=== PATIENT | female | born 1960 | race Caucasian/White ===

== ENCOUNTER → 2017-09-26 10:47 | Outpatient (CLI) | payer OTHER, SELFPAY ==
--- NOTE | 2017-09-26 10:54 | PCM.CR.HP2 ---
CR - History & Physical - General Arrival date:: 09/26/17 Arrival time:: 10:54 Date of Admission: 09/26/17 Referring Physician: DR. Isac Davila Primary Diagnosis: PCI-BEAU - History of Present Cardiac Event Onset Date: Enter Onset Date of cardiac illnesses in Comment field below [place]:: Yes - 09/10/17 NSTEMI PTCA:: Yes - 09/10/2017 Type of Symptoms:: chest pain, denied radiating pain or shortness of breath, and being diaphoretic. Previous to her visit with Dr. Davila, she had been experiencing intermittent episodes of resting and nocturnal chest pain/discomfort. She states this eventually would go away on its own. Interventions with present event:: Left heart cath with a coronary stent placement. - Medications Home Medications: Ambulatory Orders Medication Instructions Recorded Albuterol IH (ProAir) [Proair Hfa] 1 puff INHALATION Q6H PRN PRN 12/16/14 Melatonin/Pyridoxine [Melatonin 3 1 tab PO QHS 12/16/14 mg Tablet] Metformin HCl [Glucophage] 1,000 mg PO BID 12/16/14 Pravastatin [Pravachol] 40 mg PO QHS 12/16/14 Trazodone HCl 150 mg PO QHS 12/16/14 Aspirin E.C. [Ecotrin] 81 mg PO DAILY@0800 #30 tablet 10/20/16 Clopidogrel Bisulfate [Plavix] 75 mg PO DAILY #30 tablet 10/20/16 Nitroglycerin [Nitrostat] 0.4 mg SUBLINGUAL Q5M PRN #25 10/20/16 tablet Metoprolol Tartrate [Lopressor 37.5 mg PO BID 09/09/17 (beta rayna)] Pantoprazole Sodium [Protonix] 40 mg PO DAILY 09/09/17 - Allergies Allergies/Adverse Reactions: Allergies diltiazem Allergy (Verified 09/09/17 09:39) Unknown levofloxacin [From Levaquin] Adverse Reaction (Verified 04/26/16 19:04) Upset Stomach meperidine HCl [From Demerol] Adverse Reaction (Verified 10/17/16 14:56) Vomiting rosuvastatin calcium [From Crestor] Adverse Reaction (Verified 04/26/16 19:04) Pain in joints Tetracyclines Adverse Reaction (Verified 10/17/16 14:56) Upset Stomach tramadol Adverse Reaction (Verified 10/19/16 16:56) Diarrhea - Sleep Disorder Evaluation Hx of Sleep Apnea: Yes Do you snore loudly (louder than talking or can be heard through closed doors)?: Yes - Insomnia and KALI, has been tested and use CPAP at home. Do you often feel tired/ fatigued/ sleepy during daytime?: No Has anyone observed you stop breathing during sleep?: No History of Hypertension (for STOP score): Yes STOP Results: Positive Advanced Directives - Advanced Directives Power of Surgical Scrub Tech: No Living Will: No Advance Directives Information Provided: No - denied. Advance Directives on File: No DNR Order?:: No Past Medical History - Problems and Co-Morbidities Problems & Co-Morbidities: Smoking - 1/2 ppd current smoker, smoked for about 25 years., Dyslipidemia, Diabetes - Type II, Obesity - BMI 31.0-31.9%, Hypertension - Past Medical Illness Past Medical Illness: Diabetes - Type II Other Medical Illnesses:: GERD, Neuropathic pain, depression, insomnia, KALI. - Past Cardiac Illness Past Cardiac Illness: Heart Murmur - cardiac heart murmur, Ejection Fraction - 60% per ECHO 10/02/2016, Coronary Artery Disease Other Cardiac Illnesses:: syncope and near syncope episodes - Cardiology Procedures/Interventions Cardiology Procedures/Interventions: Angioplasty, PCI w/Stenting - previous status post coronary stenting and angioplasty, Other Procedures - abnormal stress test and electrocardiogram. 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 Review of Systems - Review of Systems Hints: Right click = Denies (Slash). Left click = Reports ([place]) Review of Present Symptoms: Reports: Shortness of Breath with Exertion - sometimes just comes and goes not really related to level of activity., Angina - resting and nocturnal, Dizziness/Lightheadedness - yes., Fatigue, Appetite - Normal, Appetite - Special Diet - watching sodium and fat intake., Sleep - Normal. Denies: Shortness of Breath at Rest Risk Factor Assessment - Chief Complaint Chief Complaint: Patient presentst o cardiac rehab today following recent PCI-BEAU procedure here at [facility]. Patient is currently under the care of Dr. Isac Davila and Dr. Olivier Anand. 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 - Diabetes Diabetic History: Type II, Medication Dependent Nutrition Referral for Diabetes: No - Obesity Height: 64 ft Weight:: 86.183 kg - BMI incorrect below BMI 32.61 Weight in Pounds: 190.0 lbs Body Mass Index (BMI): 0.2 Nutritional Referral for Obesity: No - Previously seen Diabatic Education - Physical Inactivity Physical Inactivity: None - Risk Stratification Risk Guidelines: Lowest Risk: Risk Factor for Dyslipidemia, Risk Factor for Diabetes - last HbA1C below 6.4, Highest Risk: Risk Factor for Smoking - For Smoking Smoking Risk Guidelines: Smoking Low Risk: None or quit greater than 6 months ago. Smoking Moderate Risk: Smoker or quit 6 months or less ago. Smoking High Risk: Smoker - For Dyslipidemia Dyslipidemia Risk Guidelines: Low Risk: Moderate Risk: High Risk: 15-25% fat 25.1-29% fat >/= 30% fat. <7% sat fat 7-9% sat fat >9% sat fat. <150 mg chol 150-299 mg chol >/= 300 mg chol. LDL <100 LDL 100-129 LDL >/= 130. Chol/HDL ratio <5.0 Chol/HDL ratio 5.0-6.0 Chol/HDL ratio >6.0. Triglycerides <100 Triglycerides 100-149 Triglycerides >/= 150 - For Diabetes Mellitus Diabetes Risk Guidelines: Diabetes Low Risk: HgA1c <6.5% and/or FBG <120. Diabetes Moderate Risk: HgA1c 6.6-7.9% and/or FBG 120-180. Diabetes High Risk: HgA1c >/= 8% and/or FBG >180 - For Obesity/Overweight Obesity/Overweight Risk Guidelines: Obesity Low Risk: BMI <25.0. Obesity Moderate Risk: BMI 25-29.9. Obesity High Risk: BMI >/= 30.0 - For Hypertension Hypertension Risk Guidelines: Hypertension Low Risk: Systolic <120 and Diastolic <80. Hypertension Moderate Risk: Systolic 120-139 and Diastolic 80-89. Hypertension High Risk: Systolic >/= 140 and Diastolic >/= 90 - For Sedentary Lifestyle Sedentary Lifestyle Risk Guidelines: Sedentary Lifestyle Low Risk: >/= 1,500 kcal/week. Sedentary Lifestyle Moderate Risk: 700-1,499 kcal/week. Sedentary Lifestyle High Risk: < 700 kcal/week - For Depression Depression Risk Guidelines: Depression Low Risk: Not clinically depressed. Depression Moderate Risk: Mildly depressed. Depression High Risk: Clinically depressed Social History - Smoking History Smoking Status: Current every day smoker Years Smokin Packs Smoked per Day: 0.5 Hx Tobacco Use: Yes - Alcohol Use Alcohol Usage: No - Substance Abuse Hx Substance Use: No - Occupation Occupation (List type of work in comments):: Retired - Hobbies, Recreation, Social Activities Hobbies: Reading Recreational Activities: I am able to engage in most, but not all activities Marital Status - Status Marital Status: - Current Living Arrangements Living Environment:: Spouse - Children How many children do you have?: 2 Do any of your children live nearby?: Yes - [place] area - Safety Do you feel safe in your surroundings?: Yes - Assistance Do you need any assistance at home?: none
--- NOTE | 2017-09-26 11:04 | CR.HP_ITS ---
CR - History & Physical - General Arrival date:: 09/26/17 Arrival time:: 10:54 Date of Admission: 09/26/17 Referring Physician: DR. Isac Davila Primary Diagnosis: PCI-BEAU - History of Present Cardiac Event Onset Date: Enter Onset Date of cardiac illnesses in Comment field below [place]:: Yes - 09/10/17 NSTEMI PTCA:: Yes - 09/10/2017 Type of Symptoms:: chest pain, denied radiating pain or shortness of breath, and being diaphoretic. Previous to her visit with Dr. Davila, she had been experiencing intermittent episodes of resting and nocturnal chest pain/ discomfort. She states this eventually would go away on its own. Interventions with present event:: Left heart cath with a coronary stent placement. - Medications Home Medications: Ambulatory Orders Medication Instructions Recorded Albuterol IH (ProAir) [Proair Hfa] 1 puff INHALATION Q6H PRN PRN 12/16/14 Melatonin/Pyridoxine [Melatonin 3 1 tab PO QHS 12/16/14 mg Tablet] Metformin HCl [Glucophage] 1,000 mg PO BID 12/16/14 Pravastatin [Pravachol] 40 mg PO QHS 12/16/14 Trazodone HCl 150 mg PO QHS 12/16/14 Aspirin E.C. [Ecotrin] 81 mg PO DAILY@0800 #30 tablet 10/20/16 Clopidogrel Bisulfate [Plavix] 75 mg PO DAILY #30 tablet 10/20/16 Nitroglycerin [Nitrostat] 0.4 mg SUBLINGUAL Q5M PRN #25 10/20/16 tablet Metoprolol Tartrate [Lopressor 37.5 mg PO BID 09/09/17 (beta rayna)] Pantoprazole Sodium [Protonix] 40 mg PO DAILY 09/09/17 - Allergies Allergies/Adverse Reactions: Allergies diltiazem Allergy (Verified 09/09/17 09:39) Unknown levofloxacin [From Levaquin] Adverse Reaction (Verified 04/26/16 19:04) Upset Stomach meperidine HCl [From Demerol] Adverse Reaction (Verified 10/17/16 14:56) Vomiting rosuvastatin calcium [From Crestor] Adverse Reaction (Verified 04/26/16 19:04) Pain in joints Tetracyclines Adverse Reaction (Verified 10/17/16 14:56) Upset Stomach tramadol Adverse Reaction (Verified 10/19/16 16:56) Diarrhea - Sleep Disorder Evaluation Hx of Sleep Apnea: Yes Do you snore loudly (louder than talking or can be heard through closed doors)? : Yes - Insomnia and KALI, has been tested and use CPAP at home. Do you often feel tired/ fatigued/ sleepy during daytime?: No Has anyone observed you stop breathing during sleep?: No History of Hypertension (for STOP score): Yes STOP Results: Positive Advanced Directives - Advanced Directives Power of Hearing Therapist: No Living Will: No Advance Directives Information Provided: No - denied. Advance Directives on File: No DNR Order?:: No Past Medical History - Problems and Co-Morbidities Problems & Co-Morbidities: Smoking - 1/2 ppd current smoker, smoked for about 25 years., Dyslipidemia, Diabetes - Type II, Obesity - BMI 31.0-31.9%, Hypertension - Past Medical Illness Past Medical Illness: Diabetes - Type II Other Medical Illnesses:: GERD, Neuropathic pain, depression, insomnia, KALI. - Past Cardiac Illness Past Cardiac Illness: Heart Murmur - cardiac heart murmur, Ejection Fraction - 60% per ECHO 10/02/2016, Coronary Artery Disease Other Cardiac Illnesses:: syncope and near syncope episodes - Cardiology Procedures/Interventions Cardiology Procedures/Interventions: Angioplasty, PCI w/Stenting - previous status post coronary stenting and angioplasty, Other Procedures - abnormal stress test and electrocardiogram. 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 Review of Systems - Review of Systems Hints: Right click = Denies (Slash). Left click = Reports ([place]) Review of Present Symptoms: Reports: Shortness of Breath with Exertion - sometimes just comes and goes not really related to level of activity., Angina - resting and nocturnal, Dizziness/Lightheadedness - yes., Fatigue, Appetite - Normal, Appetite - Special Diet - watching sodium and fat intake., Sleep - Normal. Denies: Shortness of Breath at Rest Risk Factor Assessment - Chief Complaint Chief Complaint: Patient presentst o cardiac rehab today following recent PCI- BEAU procedure here at [facility]. Patient is currently under the care of Dr. Isac Davila and Dr. Olivier Anand. 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 - Diabetes Diabetic History: Type II, Medication Dependent Nutrition Referral for Diabetes: No - Obesity Height: 64 ft Weight:: 86.183 kg - BMI incorrect below BMI 32.61 Weight in Pounds: 190.0 lbs Body Mass Index (BMI): 0.2 Nutritional Referral for Obesity: No - Previously seen Diabatic Education - Physical Inactivity Physical Inactivity: None - Risk Stratification Risk Guidelines: Lowest Risk: Risk Factor for Dyslipidemia, Risk Factor for Diabetes - last HbA1C below 6.4, Highest Risk: Risk Factor for Smoking - For Smoking Smoking Risk Guidelines: Smoking Low Risk: None or quit greater than 6 months ago. Smoking Moderate Risk: Smoker or quit 6 months or less ago. Smoking High Risk: Smoker - For Dyslipidemia Dyslipidemia Risk Guidelines: Low Risk: Moderate Risk: High Risk: 15-25% fat 25.1-29% fat >/= 30% fat. <7% sat fat 7-9% sat fat >9% sat fat. <150 mg chol 150-299 mg chol >/= 300 mg chol. LDL <100 LDL 100-129 LDL >/= 130. Chol/HDL ratio <5.0 Chol/HDL ratio 5.0-6.0 Chol/HDL ratio >6.0. Triglycerides <100 Triglycerides 100-149 Triglycerides >/= 150 - For Diabetes Mellitus Diabetes Risk Guidelines: Diabetes Low Risk: HgA1c <6.5% and/or FBG <120. Diabetes Moderate Risk: HgA1c 6.6-7.9% and/or FBG 120-180. Diabetes High Risk: HgA1c >/= 8% and/or FBG >180 - For Obesity/Overweight Obesity/Overweight Risk Guidelines: Obesity Low Risk: BMI <25.0. Obesity Moderate Risk: BMI 25-29.9. Obesity High Risk: BMI >/= 30.0 - For Hypertension Hypertension Risk Guidelines: Hypertension Low Risk: Systolic <120 and Diastolic <80. Hypertension Moderate Risk: Systolic 120-139 and Diastolic 80-89. Hypertension High Risk: Systolic >/= 140 and Diastolic >/= 90 - For Sedentary Lifestyle Sedentary Lifestyle Risk Guidelines: Sedentary Lifestyle Low Risk: >/= 1 ,500 kcal/week. Sedentary Lifestyle Moderate Risk: 700-1,499 kcal/week. Sedentary Lifestyle High Risk: < 700 kcal/week - For Depression Depression Risk Guidelines: Depression Low Risk: Not clinically depressed. Depression Moderate Risk: Mildly depressed. Depression High Risk: Clinically depressed Social History - Smoking History Smoking Status: Current every day smoker Years Smokin Packs Smoked per Day: 0.5 Hx Tobacco Use: Yes - Alcohol Use Alcohol Usage: No - Substance Abuse Hx Substance Use: No - Occupation Occupation (List type of work in comments):: Retired - Hobbies, Recreation, Social Activities Hobbies: Reading Recreational Activities: I am able to engage in most, but not all activities Marital Status - Status Marital Status: - Current Living Arrangements Living Environment:: Spouse - Children How many children do you have?: 2 Do any of your children live nearby?: Yes - [place] area - Safety Do you feel safe in your surroundings?: Yes - Assistance Do you need any assistance at home?: none
[2017-09-26 11:17] VITALS: BP 140/78; PULSE 67
--- NOTE | 2017-09-26 11:18 | CR.ITP_ITS ---
Exercise - Initial Assessment - Visit Date of Eval: 09/26/17 - INITIAL EVAL - Stages of Change Stages of Change:: Action - Exercise Prescription Mode:: Treadmill, Rower, Airdyne, NuStep Target Heart Rate:: 113-122 - Hypertension Do any of the following apply?: Medication - Intervention Home Exercise/Activity Goal:: Moderate Exercise 30 min/day x 5 days/wk - Education Goals:: Warm-up, RPE AMANDA Scale, S/S, Safe Exercise, Self-Monitoring - Exercise Program Goals Exercise Program Goals: Aerobic Activity >30 min Exercise - 30-day Assessment - Stages of Change Stages of Change:: Action - Exercise Prescription Mode:: Treadmill, Rower, Airdyne, NuStep Frequency (x/week): 3 Duration:: 35 METs - Progression: 0.5-1 MET as tolerated: 3.7 Target Heart Rate:: 113-122 - Intervention Home Exercise/Activity Goal:: Moderate Exercise 30 min/day x 5 days/wk - Education Goals:: Warm-up, RPE AMANDA Scale, S/S, Safe Exercise, Self-Monitoring - Exercise Program Goals Exercise Program Goals: Aerobic Activity >30 min Exercise - 60-Day Assessment - Stages of Change Stages of Change:: Action - Exercise Prescription Mode:: Treadmill, Biodyne, Rower, Airdyne, NuStep, Arm Ergometer Frequency (x/week): 3 Duration:: 35 METs: 5 Target Heart Rate:: 113-122 - Hypertension Medication Changes:: No - Intervention Home Exercise/Activity Goal:: Moderate Exercise 30 min/day x 5 days/wk - Education Goals:: Warm-up, RPE AMANDA Scale, S/S, Safe Exercise, Self-Monitoring - Exercise Program Goals Exercise Program Goals: Aerobic Activity >30 min Exercise - 90-Day Assessment - Stages of Change Stages of Change:: Action - Exercise Prescription Mode:: Treadmill, Biodyne, Rower, Airdyne, NuStep, Arm Ergometer Frequency (x/week): 3 Duration:: 35 METs: 5 Target Heart Rate:: 113-122 - Hypertension Medication Changes:: No - Intervention Home Exercise/Activity Goal:: Moderate Exercise 30 min/day x 5 days/wk - Education Goals:: Warm-up, RPE AMANDA Scale, S/S, Safe Exercise, Self-Monitoring - Exercise Program Goals Exercise Program Goals: Aerobic Activity >30 min Exercise - Final/Discharge - Hypertension Do any of the following apply?: Medication Nutrition - Initial Assessment - Program Goals Nutrition Program Goals: LDL <70. Total Cholesterol <200. HDL >45. Triglycerides <150. HgbA1C <7%. BMI <25 - Visit Date of Assessment:: 09/26/17 - INITIAL EVAL - Stages of Change Stages of Change:: Action - Diabetes Diabetes:: Yes Hgb A1C: 6.4 Non-Insulin Dependent?: Yes - Metformin 1000mg daily Do you monitor your blood sugar at home?: Yes - Weight Management Height: 5 ft 4 in Weight:: 68.126 kg Weight Goal (kg):: 65.771 kg - Patient could benefit from formal counseling with dietitian Body Fat %:: 30 Total Score:: 12 - Intervention Referral to dietitian:: Yes Referral to Diabetic Clinic:: Yes Will attend diet classes:: Yes - Education Gave educational materials for:: Signs & symptoms of hypoglycemia, Signs & symptoms of hyperglycemia, Relate diabetes to coronary artery disease, Healthy eating Nutrition - 30-Day Assessment - Program Goals Nutrition Program Goals: LDL <70. Total Cholesterol <200. HDL >45. Triglycerides <150. HgbA1C <7%. BMI <25 - Stages of Change Stages of Change:: Action - Lipids Has the patient seen the dietitian?: No - Diabetes Diabetes:: Yes Hgb A1C: 6.4 Insulin: No Non-Insulin Dependent?: Yes - Metformin 1000mg daily - Weight Management Weight Goal (kg):: 65.771 kg - Patient could benefit from formal counseling with dietitian - Intervention Referral to dietitian:: Yes Referral to Diabetic Clinic:: Yes Will attend diet classes:: Yes - Education Attended class for:: Signs & symptoms of hypoglycemia, Signs & symptoms of hyperglycemia, Relate diabetes to coronary artery disease, Healthy eating Nutrition - 60-Day Assessment - Program Goals Nutrition Program Goals: LDL <70. Total Cholesterol <200. HDL >45. Triglycerides <150. HgbA1C <7%. BMI <25 - Stages of Change Stages of Change:: Action - Lipids Has the patient seen the dietitian?: No Lipid Medication: Pravachol - Diabetes Diabetes:: Yes Hgb A1C: 6.4 Insulin: No Non-Insulin Dependent?: Yes - Metformin 1000mg daily Random Blood Glucose:: 72 - Weight Management Weight Goal (kg):: 65.771 kg - Patient could benefit from formal counseling with dietitian - Intervention Referral to dietitian:: Yes Referral to Diabetic Clinic:: Yes Will attend diet classes:: Yes - Education Attended class for:: Signs & symptoms of hypoglycemia, Signs & symptoms of hyperglycemia, Relate diabetes to coronary artery disease, Healthy eating Nutrition - 90-Day Assessment - Program Goals Nutrition Program Goals: LDL <70. Total Cholesterol <200. HDL >45. Triglycerides <150. HgbA1C <7%. BMI <25 - Stages of Change Stages of Change:: Action - Lipids Has the patient seen the dietitian?: No Lipid Medication: Pravachol - Diabetes Diabetes:: Yes Hgb A1C: 6.4 Insulin: No Non-Insulin Dependent?: Yes - Metformin 1000mg daily Random Blood Glucose:: 72 - Weight Management Weight Goal (kg):: 65.771 kg - Patient could benefit from formal counseling with dietitian - Intervention Referral to dietitian:: Yes Referral to Diabetic Clinic:: Yes Will attend diet classes:: Yes - Education Attended class for:: Signs & symptoms of hypoglycemia, Signs & symptoms of hyperglycemia, Relate diabetes to coronary artery disease, Healthy eating Nutrition - Final Assessment - Program Goals Nutrition Program Goals: LDL <70. Total Cholesterol <200. HDL >45. Triglycerides <150. HgbA1C <7%. BMI <25 - Diabetes Diabetes:: Yes Hgb A1C: 6.4 Insulin: No Non-Insulin Dependent?: Yes - Metformin 1000mg daily - Weight Management Weight Goal (kg):: 65.771 kg - Patient could benefit from formal counseling with dietitian Body Fat %:: 30 Total Score:: 12 - Intervention Referral to dietitian:: Yes Referral to Diabetic Clinic:: Yes Will attend diet classes:: Yes Tobacco - Initial Assessment - Program Goals Tobacco Program Goals: Complete smoking cessation. Attend education classes. Improve Knowledge Test score - Stage of Change Stages of Change:: Action - Learning Barriers Learning Barriers: Vision, Ready to Learn Total Score:: 0 - Family Support Do you have family support?: Yes - Tobacco Use Tobacco Use: Cigarettes - down to 2-3 cigarettes daily; plans to quit this week and not purchase more. How many cigarettes do you smoke per day?: 10 Years Smokin Do you use smokeless tobacco?: No - Intervention Smoking Cessation Referral:: Yes Individual Education/Counseling:: No Education Schedule Given:: Yes - Education Gave educational material for:: Tobacco triggers, Coronary artery disease, Risk factors, Sexuality, Medical compliance, Cardiac A&P, Angina signs & symptoms Tobacco - 30-Day Assessment - Program Goals Tobacco Program Goals: Complete smoking cessation. Attend education classes. Improve Knowledge Test score - Stage of Change Stages of Change:: Action - Learning Barriers Learning Barriers: Participates in education - Family Support Do you have family support?: Yes - Tobacco Use Do you use smokeless tobacco?: No - Intervention Smoking Cessation Referral:: Yes Individual Education/Counseling:: No Education Schedule Given:: Yes - Education Attended class for:: Tobacco triggers, Coronary artery disease, Risk factors, Sexuality, Medical compliance, Cardiac A&P, Angina signs & symptoms Tobacco - 60-Day Assessment - Program Goals Tobacco Program Goals: Complete smoking cessation. Attend education classes. Improve Knowledge Test score - Stage of Change Stages of Change:: Action - Learning Barriers Learning Barriers: Participates in education - Family Support Do you have family support?: Yes - Tobacco Use Do you use smokeless tobacco?: No - Intervention Smoking Cessation Referral:: Yes Individual Education/Counseling:: No Education Schedule Given:: Yes - Education Attended class for:: Tobacco triggers, Coronary artery disease, Risk factors, Sexuality, Medical compliance, Cardiac A&P, Angina signs & symptoms Tobacco - 90-Day Assessment - Program Goals Tobacco Program Goals: Complete smoking cessation. Attend education classes. Improve Knowledge Test score - Stage of Change Stages of Change:: Action - Learning Barriers Learning Barriers: Participates in education - Family Support Do you have family support?: Yes - Tobacco Use Do you use smokeless tobacco?: No - Intervention Smoking Cessation Referral:: Yes Individual Education/Counseling:: No Education Schedule Given:: Yes - Education Attended class for:: Tobacco triggers, Coronary artery disease, Risk factors, Sexuality, Medical compliance, Cardiac A&P, Angina signs & symptoms Tobacco - Final Assessment - Program Goals Tobacco Program Goals: Complete smoking cessation. Attend education classes. Improve Knowledge Test score - Learning Barriers Cardiac Knowledge Test Score:: 6 - Family Support Do you have family support?: Yes - Tobacco Use Do you use smokeless tobacco?: No - Intervention Smoking Cessation Referral:: Yes Individual Education/Counseling:: No Education Schedule Given:: Yes Psychosocial - Initial Assess - Target Goals Target Goals: Assess presence or absence of depression. Using a valid screening tool, maximizes coping skills. Positive support system - Stages of Change Stages of Change:: Action - Psychosocial Test Tool Used:: HANDS Depression Questionnaire Tests Completed: SF - 36 survey completed, Mood Scale Test - 7 Total Mood Screening Score:: 0 - Mild depression per survey score. Self-Efficacy Score:: 0 - Patient very discouraged. - Intervention PS - Interventions: Yes Attend Stress Management Classes, Yes Uses Stress Management Skills, No Referral to Mental Health, No Referral to [facility] Case Management, No Referral to Physician - - Education Gave educational materials for:: Coping techniques, Signs & symptoms of depression, Stress management - Patient/Program Goal Preventative Medication(s):: Aspirin, STEVE inhibitor, Clopidogrel, Beta rayna, Statin/lipid - Assistive Devices Assistive Devices:: None Fall Risk Assessed:: Yes Psychosocial - 30-Day Assess - Target Goals Target Goals: Assess presence or absence of depression. Using a valid screening tool, maximizes coping skills. Positive support system - Stages of Change Stages of Change:: Action - Psychosocial Test Tool Used:: HANDS Depression Questionnaire Self-reported stress:: None - Patient/Program Goal Preventative Medication(s):: Aspirin, STEVE inhibitor, Clopidogrel, Beta rayna, Statin/lipid - Assistive Devices Assistive Devices:: None Fall Risk Assessed:: Yes Psychosocial - 60-Day Assess - Target Goals Target Goals: Assess presence or absence of depression. Using a valid screening tool, maximizes coping skills. Positive support system - Stages of Change Stages of Change:: Contemplate, Action - Psychosocial Test Tool Used:: HANDS Depression Questionnaire - Patient/Program Goal Preventative Medication(s):: Aspirin, STEVE inhibitor, Clopidogrel, Beta rayna, Statin/lipid - Assistive Devices Assistive Devices:: None Fall Risk Assessed:: Yes Psychosocial - 90-Day Assess - Target Goals Target Goals: Assess presence or absence of depression. Using a valid screening tool, maximizes coping skills. Positive support system - Stages of Change Stages of Change:: Contemplate, Action - Psychosocial Test Tool Used:: HANDS Depression Questionnaire - Patient/Program Goal Preventative Medication(s):: Aspirin, STEVE inhibitor, Clopidogrel, Beta rayna, Statin/lipid - Assistive Devices Assistive Devices:: None Fall Risk Assessed:: Yes Psychosocial - Final Assessmen - Target Goals Target Goals: Assess presence or absence of depression. Using a valid screening tool, maximizes coping skills. Positive support system - Psychosocial Test Tool Used:: HANDS Depression Questionnaire Tests Completed: SF - 36 survey completed, Mood Scale Test - 7 - Patient/Program Goal Preventative Medication(s):: Aspirin, STEVE inhibitor, Clopidogrel, Beta rayna, Statin/lipid - Assistive Devices Assistive Devices:: None Fall Risk Assessed:: Yes Patient Health Questionnaire Initial Assessment 1. Little interest or pleasure in doing things: Several days 2. Feeling down, depressed, or hopeless: Several days 3. Trouble falling or staying asleep, or sleeping too much: More than half the days 4. Feeling tired or having little energy: More than half the days 5. Poor appetite or overeating: Several days 6. Feeling bad about yourself -- or that you are a failure or have let yourself or your family down: Not at all 7. Trouble concentrating on things, such as reading the newspaper or watching television: Not at all 8. Moving or speaking so slowly that other people could have noticed. Or the opposite - being so fidgety or restless that you have been moving around a lot more than usual: Not at all 9. Thoughts that you would be better off , or of hurting yourself in some way: Not at all How difficult have these problems made it for you to do your work, take care of things at home, or get along with other people?: Somewhat difficult Total Score: 7 Knowledge Test - Check your knowledge Initial The #1 cause of in the [place] each year is:: Heart disease Which of the following is a common treatment for heart disease?: All of the above The arteries that feed the heart are called:: Coronary arteries HDL cholesterol is known as the good cholesterol.: True What disease increases your risk for heart disease?: Diabetes What food product raises blood cholesterol level the most?: Saturated fat The bad cholesterol in the blood is called:: LDL Hypertension is another word for:: High blood pressure A blood pressure reading of 148/88 is considered normal.: False Exercise will only benefit your health when your heart rate reaches a target level.: False Total Score:: 10 Self-Efficacy Initial Assessment We would like to know how confident you are in doing certain activities. Please select your confidence level for:: Select your confidence level for the following using the scale 1-10 where 1 is not at all confident and 10 is totally confident. Your score is the average of all 6 responses. Fatigue: How confident are you that you can keep the fatigue caused by your disease from interfering with the things you want to do? Select Number: 4 Physical Discomfort or Pain: How confident are you that you can keep the physical discomfort or pain of your disease from interfering with the things you want to do? Select Number: 5 Emotional Distress: How confident are you that you can keep the emotional distress caused by your disease from interfering with the things you want to do? Select Number: 8 Other Symptoms or Health Problems: How confident are you that you can keep other symptoms or health problems from interfering with the things you want to do? Select Number: 6 Different Tasks and Activities: How confident are you that you can do the different tasks and activities needed to manage your health condition so as to reduce your need to see a doctor? Select Number: 5 Medication: How confident are you that you can do things other than just taking medication to reduce how much your illness affects your everyday life? Select Number: 5 Total Score:: 5 Nutrition Survey - Nutrition Survey Instructions Scoring Instructions: Scoring is as follows: Yes = 1 points. No = 0 point. Patient score that is >/=12 is considered to be at potential nutritional risk and could benefit from a referral to a registered dietitian. - Nutrition Survey Initial Have you lost >10 lbs over the past 2 months without trying?: No Are you following a special diet at home for diabetes, low fat, or low salt?: No Are you interested in meeting with a dietitian for help understanding your diet? : No Do you eat less than 3 meals a day?: Yes Do you eat fatty meats (metz, sausage, ribs, etc), fried foods, desserts, large amounts of salad dressings, margarine, butter, or cheese most days?: No Do you have food allergies? [Enter types in comment field]: Yes Do you eat in restaurants more than 3 times a week?: No Do you season food with salt, seasoning salt, or garlic salt?: Yes Do you used canned, boxed, frozen meals, or soups, seasoning packets?: Yes Total Score:: 4 Cardiac Rehabilitation Goals - Cardiac Rehab Goals Cardiac Rehabilitation Goals: 1. Maintain the individual as the primary focus of care. 2. To improve the patient's quality of life. 3. Identification of cardiac risk factors and provide cardiac risk factor management. 4. Enhance the psychosocial status of the patient. 5. Reconditioning enough to allow the patient to resume customary activities. 6. Control symptoms of cardiac disease - Scale Scale for measuring improvement of personal goals: Enter appropriate number in Comments. 2 = Unchanged. 3 = Slightly Better. 4 = Moderate Improvement. 5 = Met my Goal Initial Assessment Personal Goals: 30-day Re-assessment: Improve energy level, Improve muscle strength and endurance, Improve diet and eating habits (eat healthier), Control risk factors (learn risk factor modification)
== END ==
PROVIDERS: Family Provider Family Medicine; PCP Family Medicine; Visit Provider Internal Medicine Cardiovascular Disease
DX: I25.2 Old myocardial infarction (principal)

== ENCOUNTER 2017-11-13 13:00 | Outpatient (RCR) | payer OTHER, SELFPAY ==
[2017-10-14 01:39] VITALS: BP 130/64; BP 160/76
[2017-11-13 09:36] VITALS: BP 112/72; BP 150/70
--- NOTE | 2017-11-13 09:37 | CR.ITP_ITS ---
Exercise - Initial Assessment - Stages of Change Stages of Change:: Action - Exercise Prescription Mode:: Treadmill, Rower, Airdyne, NuStep Target Heart Rate:: 113-122 - Hypertension Do any of the following apply?: Medication - Intervention Home Exercise/Activity Goal:: Moderate Exercise 30 min/day x 5 days/wk - Education Goals:: Warm-up, RPE AMANDA Scale, S/S, Safe Exercise, Self-Monitoring - Exercise Program Goals Exercise Program Goals: Aerobic Activity >30 min Exercise - 30-day Assessment - Visit Date of Eval: 10/11/17 - Stages of Change Stages of Change:: Action - Exercise Prescription Mode:: Treadmill, Biodyne, Airdyne, NuStep Frequency (x/week): 3 Duration:: 30 METs - Progression: 0.5-1 MET as tolerated: 3.1 Target Heart Rate:: 116-120 Max HR 100 - Intervention Home Exercise/Activity Goal:: Moderate Exercise 30 min/day x 5 days/wk - Education Goals:: Warm-up, RPE AMANDA Scale, S/S, Safe Exercise, Self-Monitoring - Exercise Program Goals Exercise Program Goals: Aerobic Activity >30 min Exercise - 60-Day Assessment - Visit Date of Eval: 11/13/17 - Started CR 09/30/2017 recent PCI Session #:: 16 - Stages of Change Stages of Change:: Action - Exercise Prescription Mode:: Treadmill, Biodyne, Rower, Airdyne, NuStep, Arm Ergometer Frequency (x/week): 3 Duration:: 35 METs: 6 Target Heart Rate:: 116-120 Max HR 109 - Hypertension Resting Blood Pressure:: 112/72 Peak Exercise Blood Pressure:: 150/70 Medication Changes:: No - Intervention Home Exercise/Activity Goal:: Moderate Exercise 30 min/day x 5 days/wk - Education Goals:: Warm-up, RPE AMANDA Scale, S/S, Safe Exercise, Self-Monitoring - Exercise Program Goals Exercise Program Goals: Aerobic Activity >30 min Exercise - 90-Day Assessment - Exercise Prescription Duration:: METs: Target Heart Rate:: - Intervention Home Exercise/Activity Goal:: Moderate Exercise 30 min/day x 5 days/wk - Education Goals:: Warm-up, RPE AMANDA Scale, S/S, Safe Exercise, Self-Monitoring - Exercise Program Goals Exercise Program Goals: Aerobic Activity >30 min Exercise - Final/Discharge - Hypertension Do any of the following apply?: Medication Nutrition - Initial Assessment - Program Goals Nutrition Program Goals: LDL <70. Total Cholesterol <200. HDL >45. Triglycerides <150. HgbA1C <7%. BMI <25 - Stages of Change Stages of Change:: Action - Diabetes Diabetes:: Yes Hgb A1C: 6.4 Non-Insulin Dependent?: Yes - Metformin 1000mg daily Do you monitor your blood sugar at home?: Yes - Weight Management Weight Goal (kg):: 65.771 kg - Patient could benefit from formal counseling with dietitian Body Fat %:: 30 Total Score:: 12 - Intervention Referral to dietitian:: Yes Referral to Diabetic Clinic:: Yes Will attend diet classes:: Yes - Education Gave educational materials for:: Signs & symptoms of hypoglycemia, Signs & symptoms of hyperglycemia, Relate diabetes to coronary artery disease, Healthy eating Nutrition - 30-Day Assessment - Program Goals Nutrition Program Goals: LDL <70. Total Cholesterol <200. HDL >45. Triglycerides <150. HgbA1C <7%. BMI <25 - Stages of Change Stages of Change:: Action - Lipids Has the patient seen the dietitian?: No - Diabetes Diabetes:: Yes Hgb A1C: 6.4 Non-Insulin Dependent?: Yes - Metformin 1000mg daily - Weight Management Weight Goal (kg):: 65.771 kg - Patient could benefit from formal counseling with dietitian - Intervention Referral to dietitian:: Yes Referral to Diabetic Clinic:: Yes Will attend diet classes:: Yes - Education Attended class for:: Signs & symptoms of hypoglycemia, Signs & symptoms of hyperglycemia, Relate diabetes to coronary artery disease, Healthy eating Nutrition - 60-Day Assessment - Program Goals Nutrition Program Goals: LDL <70. Total Cholesterol <200. HDL >45. Triglycerides <150. HgbA1C <7%. BMI <25 - Visit Date of Eval: 11/13/17 - session # 16 - Stages of Change Stages of Change:: Action - Lipids Has the patient seen the dietitian?: No Lipid Medication: Pravachol - Diabetes Diabetes:: Yes Hgb A1C: 6.4 Non-Insulin Dependent?: Yes - Metformin 1000mg daily Random Blood Glucose:: 155 - Range 94-174 Pre & Post FSBS - Weight Management Weight:: 85.275 kg Weight Goal (kg):: 65.771 kg - Patient could benefit from formal counseling with dietitian - Intervention Referral to dietitian:: Yes Referral to Diabetic Clinic:: Yes Will attend diet classes:: Yes - Education Attended class for:: Signs & symptoms of hypoglycemia, Signs & symptoms of hyperglycemia, Relate diabetes to coronary artery disease, Healthy eating Nutrition - 90-Day Assessment - Program Goals Nutrition Program Goals: LDL <70. Total Cholesterol <200. HDL >45. Triglycerides <150. HgbA1C <7%. BMI <25 - Visit Date of Eval: 02/08/17 - Stages of Change Stages of Change:: Action - Lipids Has the patient seen the dietitian?: No Lipid Medication: Pravachol - Diabetes Diabetes:: Yes Hgb A1C: 6.4 Non-Insulin Dependent?: Yes - Metformin 1000mg daily Random Blood Glucose:: 72 - Weight Management Weight Goal (kg):: 65.771 kg - Patient could benefit from formal counseling with dietitian - Intervention Referral to dietitian:: Yes Referral to Diabetic Clinic:: Yes Will attend diet classes:: Yes - Education Attended class for:: Signs & symptoms of hypoglycemia, Signs & symptoms of hyperglycemia, Relate diabetes to coronary artery disease, Healthy eating Nutrition - Final Assessment - Program Goals Nutrition Program Goals: LDL <70. Total Cholesterol <200. HDL >45. Triglycerides <150. HgbA1C <7%. BMI <25 - Diabetes Diabetes:: Yes Hgb A1C: 6.4 Non-Insulin Dependent?: Yes - Metformin 1000mg daily - Weight Management Weight Goal (kg):: 65.771 kg - Patient could benefit from formal counseling with dietitian Body Fat %:: 30 Total Score:: 12 - Intervention Referral to dietitian:: Yes Referral to Diabetic Clinic:: Yes Will attend diet classes:: Yes Tobacco - Initial Assessment - Program Goals Tobacco Program Goals: Complete smoking cessation. Attend education classes. Improve Knowledge Test score - Stage of Change Stages of Change:: Action - Learning Barriers Learning Barriers: Vision, Ready to Learn Total Score:: 6 - Family Support Do you have family support?: Yes - Tobacco Use Tobacco Use: Cigarettes - down to 2-3 cigarettes daily; plans to quit this week and not purchase more. How many cigarettes do you smoke per day?: 10 Years Smokin Do you use smokeless tobacco?: No - Intervention Smoking Cessation Referral:: Yes Individual Education/Counseling:: No Education Schedule Given:: Yes - Education Gave educational material for:: Tobacco triggers, Coronary artery disease, Risk factors, Sexuality, Medical compliance, Cardiac A&P, Angina signs & symptoms Tobacco - 30-Day Assessment - Program Goals Tobacco Program Goals: Complete smoking cessation. Attend education classes. Improve Knowledge Test score - Stage of Change Stages of Change:: Action - Learning Barriers Learning Barriers: Participates in education - Family Support Do you have family support?: Yes - Tobacco Use How many cigarettes do you smoke per day?: 10 Do you use smokeless tobacco?: No - Intervention Smoking Cessation Referral:: Yes Individual Education/Counseling:: No Education Schedule Given:: Yes - Education Attended class for:: Tobacco triggers, Coronary artery disease, Risk factors, Sexuality, Medical compliance, Cardiac A&P, Angina signs & symptoms Tobacco - 60-Day Assessment - Program Goals Tobacco Program Goals: Complete smoking cessation. Attend education classes. Improve Knowledge Test score - Stage of Change Stages of Change:: Action - Learning Barriers Learning Barriers: Participates in education - Family Support Do you have family support?: Yes - Tobacco Use Tobacco Use: Cigarettes How many cigarettes do you smoke per day?: 10 Do you use smokeless tobacco?: No - Intervention Smoking Cessation Referral:: Yes Individual Education/Counseling:: No Education Schedule Given:: Yes - Education Attended class for:: Tobacco triggers, Coronary artery disease, Risk factors, Sexuality, Medical compliance, Cardiac A&P, Angina signs & symptoms Tobacco - 90-Day Assessment - Program Goals Tobacco Program Goals: Complete smoking cessation. Attend education classes. Improve Knowledge Test score - Stage of Change Stages of Change:: Action - Learning Barriers Learning Barriers: Participates in education - Family Support Do you have family support?: Yes - Tobacco Use Tobacco Use: Cigarettes How many cigarettes do you smoke per day?: 10 Do you use smokeless tobacco?: No - Intervention Smoking Cessation Referral:: Yes Individual Education/Counseling:: No Education Schedule Given:: Yes - Education Attended class for:: Tobacco triggers, Coronary artery disease, Risk factors, Sexuality, Medical compliance, Cardiac A&P, Angina signs & symptoms Tobacco - Final Assessment - Program Goals Tobacco Program Goals: Complete smoking cessation. Attend education classes. Improve Knowledge Test score - Learning Barriers Cardiac Knowledge Test Score:: 0 - Family Support Do you have family support?: Yes - Tobacco Use Tobacco Use: Cigarettes How many cigarettes do you smoke per day?: 10 Do you use smokeless tobacco?: No - Intervention Smoking Cessation Referral:: Yes Individual Education/Counseling:: No Education Schedule Given:: Yes Psychosocial - Initial Assess - Target Goals Target Goals: Assess presence or absence of depression. Using a valid screening tool, maximizes coping skills. Positive support system - Stages of Change Stages of Change:: Action - Psychosocial Test Tool Used:: HANDS Depression Questionnaire Tests Completed: SF - 36 survey completed, Mood Scale Test - 7 Total Mood Screening Score:: 0 - Mild depression per survey score. Self-Efficacy Score:: 0 - Patient very discouraged. - Patient/Program Goal Preventative Medication(s):: Aspirin, STEVE inhibitor, Clopidogrel, Beta rayna, Statin/lipid - Assistive Devices Assistive Devices:: None Fall Risk Assessed:: Yes Psychosocial - 30-Day Assess - Target Goals Target Goals: Assess presence or absence of depression. Using a valid screening tool, maximizes coping skills. Positive support system - Stages of Change Stages of Change:: Action - Psychosocial Test Tool Used:: HANDS Depression Questionnaire Self-reported stress:: None Total Mood Screening Score:: 0 - Mild depression per survey score. Self-Efficacy Score:: 0 - Patient very discouraged. - Intervention PS - Interventions: Yes Attend Stress Management Classes, Yes Uses Stress Management Skills, No Referral to Mental Health, No Referral to [facility] Case Management, No Referral to Physician - Education Attended classes for:: Coping techniques, Signs & symptoms of depression, Stress management, Relaxation techniques - Patient/Program Goal Preventative Medication(s):: Aspirin, STEVE inhibitor, Clopidogrel, Beta rayna, Statin/lipid - Assistive Devices Assistive Devices:: None Fall Risk Assessed:: Yes Psychosocial - 60-Day Assess - Target Goals Target Goals: Assess presence or absence of depression. Using a valid screening tool, maximizes coping skills. Positive support system - Stages of Change Stages of Change:: Contemplate, Action - Psychosocial Test Tool Used:: HANDS Depression Questionnaire Total Mood Screening Score:: 0 - Mild depression per survey score. Self-Efficacy Score:: 0 - Patient very discouraged. - Intervention PS - Interventions: Yes Attend Stress Management Classes, Yes Uses Stress Management Skills, No Referral to Mental Health, No Referral to [facility] Case Management, No Referral to Physician - Education Attended classes for:: Coping techniques, Signs & symptoms of depression, Stress management, Relaxation techniques - Patient/Program Goal Preventative Medication(s):: Aspirin, STEVE inhibitor, Clopidogrel, Beta rayna, Statin/lipid - Assistive Devices Assistive Devices:: None Fall Risk Assessed:: Yes Psychosocial - 90-Day Assess - Target Goals Target Goals: Assess presence or absence of depression. Using a valid screening tool, maximizes coping skills. Positive support system - Stages of Change Stages of Change:: Contemplate, Action - Psychosocial Test Tool Used:: HANDS Depression Questionnaire Total Mood Screening Score:: 0 - Mild depression per survey score. Self-Efficacy Score:: 0 - Patient very discouraged. - Intervention PS - Interventions: Yes Attend Stress Management Classes, Yes Uses Stress Management Skills, No Referral to Mental Health, No Referral to [facility] Case Management, No Referral to Physician - Education Attended classes for:: Coping techniques, Signs & symptoms of depression, Stress management, Relaxation techniques - Patient/Program Goal Preventative Medication(s):: Aspirin, STEVE inhibitor, Clopidogrel, Beta rayna, Statin/lipid - Assistive Devices Assistive Devices:: None Fall Risk Assessed:: Yes Psychosocial - Final Assessmen - Target Goals Target Goals: Assess presence or absence of depression. Using a valid screening tool, maximizes coping skills. Positive support system - Psychosocial Test Tool Used:: HANDS Depression Questionnaire Tests Completed: SF - 36 survey completed, Mood Scale Test - 7 Total Mood Screening Score:: 0 - Mild depression per survey score. Self-Efficacy Score:: 0 - Patient very discouraged. - Patient/Program Goal Preventative Medication(s):: Aspirin, STEVE inhibitor, Clopidogrel, Beta rayna, Statin/lipid - Assistive Devices Assistive Devices:: None Fall Risk Assessed:: Yes Patient Health Questionnaire 60-Day Re-eval Assessment 1. Little interest or pleasure in doing things: Not at all 2. Feeling down, depressed, or hopeless: Not at all 3. Trouble falling or staying asleep, or sleeping too much: Several days 4. Feeling tired or having little energy: Several days 5. Poor appetite or overeating: Not at all 6. Feeling bad about yourself -- or that you are a failure or have let yourself or your family down: Not at all 7. Trouble concentrating on things, such as reading the newspaper or watching television: Not at all 8. Moving or speaking so slowly that other people could have noticed. Or the opposite - being so fidgety or restless that you have been moving around a lot more than usual: Not at all 9. Thoughts that you would be better off , or of hurting yourself in some way: Not at all How difficult have these problems made it for you to do your work, take care of things at home, or get along with other people?: Somewhat difficult Total Score: 2 Self-Efficacy 60-Day Re-eval Assessment We would like to know how confident you are in doing certain activities. Please select your confidence level for:: Select your confidence level for the following using the scale 1-10 where 1 is not at all confident and 10 is totally confident. Your score is the average of all 6 responses. Fatigue: How confident are you that you can keep the fatigue caused by your disease from interfering with the things you want to do? Select Number: 5 Physical Discomfort or Pain: How confident are you that you can keep the physical discomfort or pain of your disease from interfering with the things you want to do? Select Number: 6 Emotional Distress: How confident are you that you can keep the emotional distress caused by your disease from interfering with the things you want to do? Select Number: 9 Other Symptoms or Health Problems: How confident are you that you can keep other symptoms or health problems from interfering with the things you want to do? Select Number: 7 Different Tasks and Activities: How confident are you that you can do the different tasks and activities needed to manage your health condition so as to reduce your need to see a doctor? Select Number: 7 Medication: How confident are you that you can do things other than just taking medication to reduce how much your illness affects your everyday life? Select Number: 8 Total Score:: 7 Cardiac Rehabilitation Goals - Cardiac Rehab Goals Cardiac Rehabilitation Goals: 1. Maintain the individual as the primary focus of care. 2. To improve the patient's quality of life. 3. Identification of cardiac risk factors and provide cardiac risk factor management. 4. Enhance the psychosocial status of the patient. 5. Reconditioning enough to allow the patient to resume customary activities. 6. Control symptoms of cardiac disease - Scale Scale for measuring improvement of personal goals: Enter appropriate number in Comments. 2 = Unchanged. 3 = Slightly Better. 4 = Moderate Improvement. 5 = Met my Goal 60-Day Re-eval Assessment Personal Goals: 30-day Re-assessment: Improve energy level - slight improvement , Improve knowledge of cardiac disease - improvement, Improve muscle strength and endurance - improvement, Improve diet and eating habits (eat healthier) - slight improvement
== END 2017-11-13 23:59 ==
LOC: CR 13:00
PROVIDERS: Family Provider Family Medicine; PCP Family Medicine; Visit Provider Internal Medicine Cardiovascular Disease
DX: Z95.5 Presence of coronary angioplasty implant and graft (principal)
CPT/HCPCS: 93798

== ENCOUNTER 2017-12-11 13:00 | Outpatient (RCR) | payer OTHER, SELFPAY ==
[2017-09-11 11:23] VITALS: BP 131/72
[2017-10-03 13:07] VITALS: BP 130/72; BMI 32.2
[2017-11-14 00:55] VITALS: BP 112/72; BP 150/70
[2017-12-10 12:16] VITALS: BP 128/56; BP 150/74
--- NOTE | 2017-12-10 12:16 | CR.ITP_ITS ---
Exercise - Initial Assessment - Stages of Change Stages of Change:: Action - Exercise Prescription Mode:: Treadmill, Rower, Airdyne, NuStep Target Heart Rate:: 113-122 - Hypertension Do any of the following apply?: Medication - Intervention Home Exercise/Activity Goal:: Moderate Exercise 30 min/day x 5 days/wk - Education Goals:: Warm-up, RPE AMANDA Scale, S/S, Safe Exercise, Self-Monitoring - Exercise Program Goals Exercise Program Goals: Aerobic Activity >30 min Exercise - 30-day Assessment - Stages of Change Stages of Change:: Action - Exercise Prescription Mode:: Treadmill, Biodyne, Airdyne, NuStep Frequency (x/week): 3 Duration:: 30 METs - Progression: 0.5-1 MET as tolerated: 3.1 Target Heart Rate:: 116-120 Max HR 100 - Intervention Home Exercise/Activity Goal:: Moderate Exercise 30 min/day x 5 days/wk - Education Goals:: Warm-up, RPE AMANDA Scale, S/S, Safe Exercise, Self-Monitoring - Exercise Program Goals Exercise Program Goals: Aerobic Activity >30 min Exercise - 60-Day Assessment - Exercise Prescription Duration:: METs: Target Heart Rate:: - Intervention Home Exercise/Activity Goal:: Moderate Exercise 30 min/day x 5 days/wk - Education Goals:: Warm-up, RPE AMANDA Scale, S/S, Safe Exercise, Self-Monitoring - Exercise Program Goals Exercise Program Goals: Aerobic Activity >30 min Exercise - 90-Day Assessment - Visit Date of Eval: 12/10/17 Session #:: 28 - Stages of Change Stages of Change:: Action - Exercise Prescription Mode:: Treadmill, Biodyne, NuStep, Arm Ergometer Frequency (x/week): 3 Duration:: 30 METs: 6.5 Target Heart Rate:: 116-120 w/ max HR 104 - Hypertension Resting Blood Pressure:: 128/56 Peak Exercise Blood Pressure:: 150/74 - Intervention Home Exercise/Activity Goal:: Moderate Exercise 30 min/day x 5 days/wk - Education Goals:: Warm-up, RPE AMANDA Scale, S/S, Safe Exercise, Self-Monitoring - Exercise Program Goals Exercise Program Goals: Aerobic Activity >30 min Exercise - Final/Discharge - Hypertension Do any of the following apply?: Medication Nutrition - Initial Assessment - Program Goals Nutrition Program Goals: LDL <70. Total Cholesterol <200. HDL >45. Triglycerides <150. HgbA1C <7%. BMI <25 - Stages of Change Stages of Change:: Action - Diabetes Diabetes:: Yes Hgb A1C: 6.4 Non-Insulin Dependent?: Yes - Metformin 1000mg daily Do you monitor your blood sugar at home?: Yes - Weight Management Weight Goal (kg):: 145 lb - Patient could benefit from formal counseling with dietitian Body Fat %:: 30 Total Score:: 12 - Intervention Referral to dietitian:: Yes Referral to Diabetic Clinic:: Yes Will attend diet classes:: Yes - Education Gave educational materials for:: Signs & symptoms of hypoglycemia, Signs & symptoms of hyperglycemia, Relate diabetes to coronary artery disease, Healthy eating Nutrition - 30-Day Assessment - Program Goals Nutrition Program Goals: LDL <70. Total Cholesterol <200. HDL >45. Triglycerides <150. HgbA1C <7%. BMI <25 - Stages of Change Stages of Change:: Action - Lipids Has the patient seen the dietitian?: No - Diabetes Diabetes:: Yes Hgb A1C: 6.4 Non-Insulin Dependent?: Yes - Metformin 1000mg daily - Weight Management Weight Goal (kg):: 145 lb - Patient could benefit from formal counseling with dietitian - Intervention Referral to dietitian:: Yes Referral to Diabetic Clinic:: Yes Will attend diet classes:: Yes - Education Attended class for:: Signs & symptoms of hypoglycemia, Signs & symptoms of hyperglycemia, Relate diabetes to coronary artery disease, Healthy eating Nutrition - 60-Day Assessment - Program Goals Nutrition Program Goals: LDL <70. Total Cholesterol <200. HDL >45. Triglycerides <150. HgbA1C <7%. BMI <25 - Stages of Change Stages of Change:: Action - Lipids Has the patient seen the dietitian?: No Lipid Medication: Pravachol - Diabetes Diabetes:: Yes Hgb A1C: 6.4 Non-Insulin Dependent?: Yes - Metformin 1000mg daily Random Blood Glucose:: 72 - Weight Management Weight Goal (kg):: 145 lb - Patient could benefit from formal counseling with dietitian - Intervention Referral to dietitian:: Yes Referral to Diabetic Clinic:: Yes Will attend diet classes:: Yes - Education Attended class for:: Signs & symptoms of hypoglycemia, Signs & symptoms of hyperglycemia, Relate diabetes to coronary artery disease, Healthy eating Nutrition - 90-Day Assessment - Program Goals Nutrition Program Goals: LDL <70. Total Cholesterol <200. HDL >45. Triglycerides <150. HgbA1C <7%. BMI <25 - Visit Date of Eval: 12/10/17 - Stages of Change Stages of Change:: Action - Lipids Has the patient seen the dietitian?: No Lipid Medication: Pravachol - Diabetes Diabetes:: Yes Hgb A1C: 6.4 Non-Insulin Dependent?: Yes - Metformin 1000mg daily Random Blood Glucose:: 72 - Weight Management Weight:: 188 lb Weight Goal (kg):: 145 lb - Patient could benefit from formal counseling with dietitian - Intervention Referral to dietitian:: Yes Referral to Diabetic Clinic:: Yes Will attend diet classes:: Yes - Education Attended class for:: Signs & symptoms of hypoglycemia, Signs & symptoms of hyperglycemia, Relate diabetes to coronary artery disease, Healthy eating Nutrition - Final Assessment - Program Goals Nutrition Program Goals: LDL <70. Total Cholesterol <200. HDL >45. Triglycerides <150. HgbA1C <7%. BMI <25 - Diabetes Diabetes:: Yes Hgb A1C: 6.4 Non-Insulin Dependent?: Yes - Metformin 1000mg daily - Weight Management Weight Goal (kg):: 145 lb - Patient could benefit from formal counseling with dietitian Body Fat %:: 30 Total Score:: 12 - Intervention Referral to dietitian:: Yes Referral to Diabetic Clinic:: Yes Will attend diet classes:: Yes Tobacco - Initial Assessment - Program Goals Tobacco Program Goals: Complete smoking cessation. Attend education classes. Improve Knowledge Test score - Stage of Change Stages of Change:: Action - Learning Barriers Learning Barriers: Vision, Ready to Learn Total Score:: 0 - Family Support Do you have family support?: Yes - Tobacco Use Tobacco Use: Cigarettes - down to 2-3 cigarettes daily; plans to quit this week and not purchase more. How many cigarettes do you smoke per day?: 10 Years Smokin Do you use smokeless tobacco?: No - Intervention Smoking Cessation Referral:: Yes Individual Education/Counseling:: No Education Schedule Given:: Yes - Education Gave educational material for:: Tobacco triggers, Coronary artery disease, Risk factors, Sexuality, Medical compliance, Cardiac A&P, Angina signs & symptoms Tobacco - 30-Day Assessment - Program Goals Tobacco Program Goals: Complete smoking cessation. Attend education classes. Improve Knowledge Test score - Stage of Change Stages of Change:: Action - Learning Barriers Learning Barriers: Participates in education - Family Support Do you have family support?: Yes - Tobacco Use Tobacco Use: Cigarettes How many cigarettes do you smoke per day?: 10 Do you use smokeless tobacco?: No - Intervention Smoking Cessation Referral:: Yes Individual Education/Counseling:: No Education Schedule Given:: Yes - Education Attended class for:: Tobacco triggers, Coronary artery disease, Risk factors, Sexuality, Medical compliance, Cardiac A&P, Angina signs & symptoms Tobacco - 60-Day Assessment - Program Goals Tobacco Program Goals: Complete smoking cessation. Attend education classes. Improve Knowledge Test score - Stage of Change Stages of Change:: Action - Learning Barriers Learning Barriers: Participates in education - Family Support Do you have family support?: Yes - Tobacco Use Tobacco Use: Cigarettes How many cigarettes do you smoke per day?: 10 Do you use smokeless tobacco?: No - Intervention Smoking Cessation Referral:: Yes Individual Education/Counseling:: No Education Schedule Given:: Yes - Education Attended class for:: Tobacco triggers, Coronary artery disease, Risk factors, Sexuality, Medical compliance, Cardiac A&P, Angina signs & symptoms Tobacco - 90-Day Assessment - Program Goals Tobacco Program Goals: Complete smoking cessation. Attend education classes. Improve Knowledge Test score - Stage of Change Stages of Change:: Action - Learning Barriers Learning Barriers: Participates in education - Family Support Do you have family support?: Yes - Tobacco Use Tobacco Use: Cigarettes How many cigarettes do you smoke per day?: 10 Do you use smokeless tobacco?: No - Intervention Smoking Cessation Referral:: Yes Individual Education/Counseling:: No Education Schedule Given:: Yes - Education Attended class for:: Tobacco triggers, Coronary artery disease, Risk factors, Sexuality, Medical compliance, Cardiac A&P, Angina signs & symptoms Tobacco - Final Assessment - Program Goals Tobacco Program Goals: Complete smoking cessation. Attend education classes. Improve Knowledge Test score - Learning Barriers Cardiac Knowledge Test Score:: 0 - Family Support Do you have family support?: Yes - Tobacco Use Tobacco Use: Cigarettes How many cigarettes do you smoke per day?: 10 Do you use smokeless tobacco?: No - Intervention Smoking Cessation Referral:: Yes Individual Education/Counseling:: No Education Schedule Given:: Yes Psychosocial - Initial Assess - Target Goals Target Goals: Assess presence or absence of depression. Using a valid screening tool, maximizes coping skills. Positive support system - Stages of Change Stages of Change:: Action - Psychosocial Test Tool Used:: HANDS Depression Questionnaire Tests Completed: SF - 36 survey completed, Mood Scale Test - 7 Total Mood Screening Score:: 0 - Mild depression per survey score. Self-Efficacy Score:: 0 - Patient very discouraged. - Intervention PS - Interventions: Yes Attend Stress Management Classes, Yes Uses Stress Management Skills, No Referral to Mental Health, No Referral to [facility] Case Management, No Referral to Physician - Education Gave educational materials for:: Coping techniques, Signs & symptoms of depression, Stress management, Relaxation techniques - Patient/Program Goal Preventative Medication(s):: Aspirin, STEVE inhibitor, Clopidogrel, Beta rayna, Statin/lipid - Assistive Devices Assistive Devices:: None Fall Risk Assessed:: Yes Psychosocial - 30-Day Assess - Target Goals Target Goals: Assess presence or absence of depression. Using a valid screening tool, maximizes coping skills. Positive support system - Stages of Change Stages of Change:: Action - Psychosocial Test Tool Used:: HANDS Depression Questionnaire Self-reported stress:: None Total Mood Screening Score:: 0 - Mild depression per survey score. Self-Efficacy Score:: 0 - Patient very discouraged. - Patient/Program Goal Preventative Medication(s):: Aspirin, STEVE inhibitor, Clopidogrel, Beta rayna, Statin/lipid - Assistive Devices Assistive Devices:: None Fall Risk Assessed:: Yes Psychosocial - 60-Day Assess - Target Goals Target Goals: Assess presence or absence of depression. Using a valid screening tool, maximizes coping skills. Positive support system - Stages of Change Stages of Change:: Contemplate, Action - Psychosocial Test Tool Used:: HANDS Depression Questionnaire Total Mood Screening Score:: 0 - Mild depression per survey score. Self-Efficacy Score:: 0 - Patient very discouraged. - Education Attended classes for:: Coping techniques, Signs & symptoms of depression, Stress management, Relaxation techniques - Patient/Program Goal Preventative Medication(s):: Aspirin, STEVE inhibitor, Clopidogrel, Beta rayna, Statin/lipid - Assistive Devices Assistive Devices:: None Fall Risk Assessed:: Yes Psychosocial - 90-Day Assess - Target Goals Target Goals: Assess presence or absence of depression. Using a valid screening tool, maximizes coping skills. Positive support system - Stages of Change Stages of Change:: Action - Psychosocial Test Tool Used:: HANDS Depression Questionnaire Total Mood Screening Score:: 0 - Mild depression per survey score. Self-Efficacy Score:: 0 - Patient very discouraged. - Intervention PS - Interventions: Yes Attend Stress Management Classes, Yes Uses Stress Management Skills, No Referral to Mental Health, No Referral to [facility] Case Management, No Referral to Physician - Education Attended classes for:: Coping techniques, Signs & symptoms of depression, Stress management, Relaxation techniques - Patient/Program Goal Preventative Medication(s):: Aspirin, STEVE inhibitor, Clopidogrel, Beta rayna, Statin/lipid - Assistive Devices Assistive Devices:: None Fall Risk Assessed:: Yes Psychosocial - Final Assessmen - Target Goals Target Goals: Assess presence or absence of depression. Using a valid screening tool, maximizes coping skills. Positive support system - Psychosocial Test Tool Used:: HANDS Depression Questionnaire Tests Completed: SF - 36 survey completed, Mood Scale Test - 7 Total Mood Screening Score:: 0 - Mild depression per survey score. Self-Efficacy Score:: 0 - Patient very discouraged. - Patient/Program Goal Preventative Medication(s):: Aspirin, STEVE inhibitor, Clopidogrel, Beta rayna, Statin/lipid - Assistive Devices Assistive Devices:: None Fall Risk Assessed:: Yes Patient Health Questionnaire 90-Day Re-eval Assessment 1. Little interest or pleasure in doing things: Not at all 2. Feeling down, depressed, or hopeless: Not at all 3. Trouble falling or staying asleep, or sleeping too much: Not at all 4. Feeling tired or having little energy: Several days 5. Poor appetite or overeating: Not at all 6. Feeling bad about yourself -- or that you are a failure or have let yourself or your family down: Not at all 7. Trouble concentrating on things, such as reading the newspaper or watching television: Not at all 8. Moving or speaking so slowly that other people could have noticed. Or the opposite - being so fidgety or restless that you have been moving around a lot more than usual: Not at all 9. Thoughts that you would be better off , or of hurting yourself in some way: Not at all How difficult have these problems made it for you to do your work, take care of things at home, or get along with other people?: Not difficult at all Total Score: 1 Self-Efficacy 90-Day Re-eval Assessment We would like to know how confident you are in doing certain activities. Please select your confidence level for:: Select your confidence level for the following using the scale 1-10 where 1 is not at all confident and 10 is totally confident. Your score is the average of all 6 responses. Fatigue: How confident are you that you can keep the fatigue caused by your disease from interfering with the things you want to do? Select Number: 9 Physical Discomfort or Pain: How confident are you that you can keep the physical discomfort or pain of your disease from interfering with the things you want to do? Select Number: 10 Emotional Distress: How confident are you that you can keep the emotional distress caused by your disease from interfering with the things you want to do? Select Number: 10 Other Symptoms or Health Problems: How confident are you that you can keep other symptoms or health problems from interfering with the things you want to do? Select Number: 10 Different Tasks and Activities: How confident are you that you can do the different tasks and activities needed to manage your health condition so as to reduce your need to see a doctor? Select Number: 10 Medication: How confident are you that you can do things other than just taking medication to reduce how much your illness affects your everyday life? Select Number: 10 Total Score:: 9
== END 2017-12-11 23:59 ==
LOC: CR 13:00
PROVIDERS: Family Provider Family Medicine; PCP Family Medicine; Visit Provider Internal Medicine Cardiovascular Disease
DX: Z95.5 Presence of coronary angioplasty implant and graft (principal); I25.10 Atherosclerotic heart disease of native coronary artery without angina pectoris
CPT/HCPCS: 93798

== ENCOUNTER 2017-12-27 13:00 | Outpatient (RCR) | payer OTHER, SELFPAY ==
[2017-12-12 00:43] VITALS: BP 128/56; BP 150/74
[2018-01-06 11:01] VITALS: BP 128/62; BP 148/64
--- NOTE | 2018-01-06 11:02 | CR.ITP_ITS ---
Exercise - Initial Assessment - Stages of Change Stages of Change:: Action - Exercise Prescription Mode:: Treadmill, Rower, Airdyne, NuStep Target Heart Rate:: 113-122 - Hypertension Do any of the following apply?: Medication - Intervention Home Exercise/Activity Goal:: Moderate Exercise 30 min/day x 5 days/wk - Education Goals:: Warm-up, RPE AMANDA Scale, S/S, Safe Exercise, Self-Monitoring - Exercise Program Goals Exercise Program Goals: Aerobic Activity >30 min Exercise - 30-day Assessment - Stages of Change Stages of Change:: Action - Exercise Prescription Mode:: Treadmill, Biodyne, Airdyne, NuStep Frequency (x/week): 3 Duration:: 30 METs - Progression: 0.5-1 MET as tolerated: 3.1 Target Heart Rate:: 116-120 Max HR 100 - Intervention Home Exercise/Activity Goal:: Moderate Exercise 30 min/day x 5 days/wk - Education Goals:: Warm-up, RPE AMANDA Scale, S/S, Safe Exercise, Self-Monitoring - Exercise Program Goals Exercise Program Goals: Aerobic Activity >30 min Exercise - 60-Day Assessment - Visit Date of Eval: 12/10/17 - Stages of Change Stages of Change:: Action - Exercise Prescription Mode:: Treadmill, Biodyne, NuStep, Arm Ergometer Frequency (x/week): 3 Duration:: 30 METs: 6.5 Target Heart Rate:: 116-120 w/ max HR 104 - Intervention Home Exercise/Activity Goal:: Moderate Exercise 30 min/day x 5 days/wk - Education Goals:: Warm-up, RPE AMANDA Scale, S/S, Safe Exercise, Self-Monitoring - Exercise Program Goals Exercise Program Goals: Aerobic Activity >30 min Exercise - 90-Day Assessment - Visit Date of Eval: 12/10/17 - Stages of Change Stages of Change:: Action - Exercise Prescription Mode:: Treadmill, Biodyne, NuStep, Arm Ergometer Frequency (x/week): 3 Duration:: 30 METs: 6.5 Target Heart Rate:: 116-120 w/ max HR 104 - Intervention Home Exercise/Activity Goal:: Moderate Exercise 30 min/day x 5 days/wk - Education Goals:: Warm-up, RPE AMANDA Scale, S/S, Safe Exercise, Self-Monitoring - Exercise Program Goals Exercise Program Goals: Aerobic Activity >30 min Exercise - Final/Discharge - Visit Date of Tasha: 01/06/18 - 12/02/2017-12/27/2017 Session #:: 36 - Stages of Change Stages of Change:: Action - Exercise Prescription Mode:: Treadmill, Biodyne, NuStep, Arm Ergometer Frequency (x/week): 3 Duration:: 30 METs: 6.5 Target Heart Rate:: 116-120 Max HR 101 - Hypertension Do any of the following apply?: Medication Resting Blood Pressure:: 128/62 Peak Exercise Blood Pressure:: 148/64 - Intervention Home Exercise/Activity Goal:: Moderate Exercise 30 min/day x 5 days/wk - Education Goal Progress: Goal Met - Exercise Program Goals Exercise Program Goals: Aerobic Activity >30 min, B/P <140/90 Nutrition - Initial Assessment - Program Goals Nutrition Program Goals: LDL <70. Total Cholesterol <200. HDL >45. Triglycerides <150. HgbA1C <7%. BMI <25 - Stages of Change Stages of Change:: Action - Diabetes Diabetes:: Yes Hgb A1C: 6.4 Non-Insulin Dependent?: Yes - Metformin 1000mg daily Do you monitor your blood sugar at home?: Yes - Weight Management Weight Goal (kg):: 65.771 kg - Patient could benefit from formal counseling with dietitian Body Fat %:: 30 Total Score:: 12 - Intervention Referral to dietitian:: Yes Referral to Diabetic Clinic:: Yes Will attend diet classes:: Yes - Education Gave educational materials for:: Signs & symptoms of hypoglycemia, Signs & symptoms of hyperglycemia, Relate diabetes to coronary artery disease, Healthy eating Nutrition - 30-Day Assessment - Program Goals Nutrition Program Goals: LDL <70. Total Cholesterol <200. HDL >45. Triglycerides <150. HgbA1C <7%. BMI <25 - Stages of Change Stages of Change:: Action - Lipids Has the patient seen the dietitian?: No - Diabetes Diabetes:: Yes Hgb A1C: 6.4 Non-Insulin Dependent?: Yes - Metformin 1000mg daily - Weight Management Weight Goal (kg):: 65.771 kg - Patient could benefit from formal counseling with dietitian - Intervention Referral to dietitian:: Yes Referral to Diabetic Clinic:: Yes Will attend diet classes:: Yes - Education Attended class for:: Signs & symptoms of hypoglycemia, Signs & symptoms of hyperglycemia, Relate diabetes to coronary artery disease, Healthy eating Nutrition - 60-Day Assessment - Program Goals Nutrition Program Goals: LDL <70. Total Cholesterol <200. HDL >45. Triglycerides <150. HgbA1C <7%. BMI <25 - Visit Date of Eval: 12/10/17 - Stages of Change Stages of Change:: Action - Lipids Has the patient seen the dietitian?: No Lipid Medication: Pravachol - Diabetes Diabetes:: Yes Hgb A1C: 6.4 Non-Insulin Dependent?: Yes - Metformin 1000mg daily Random Blood Glucose:: 72 - Weight Management Weight Goal (kg):: 65.771 kg - Patient could benefit from formal counseling with dietitian - Intervention Referral to dietitian:: Yes Referral to Diabetic Clinic:: Yes Will attend diet classes:: Yes - Education Attended class for:: Signs & symptoms of hypoglycemia, Signs & symptoms of hyperglycemia, Relate diabetes to coronary artery disease, Healthy eating Nutrition - 90-Day Assessment - Program Goals Nutrition Program Goals: LDL <70. Total Cholesterol <200. HDL >45. Triglycerides <150. HgbA1C <7%. BMI <25 - Visit Date of Eval: 12/10/17 - Stages of Change Stages of Change:: Action - Lipids Has the patient seen the dietitian?: No Lipid Medication: Pravachol - Diabetes Diabetes:: Yes Hgb A1C: 6.4 Non-Insulin Dependent?: Yes - Metformin 1000mg daily Random Blood Glucose:: 72 - Weight Management Weight Goal (kg):: 65.771 kg - Patient could benefit from formal counseling with dietitian - Intervention Referral to dietitian:: Yes Referral to Diabetic Clinic:: Yes Will attend diet classes:: Yes - Education Attended class for:: Signs & symptoms of hypoglycemia, Signs & symptoms of hyperglycemia, Relate diabetes to coronary artery disease, Healthy eating Nutrition - Final Assessment - Program Goals Nutrition Program Goals: LDL <70. Total Cholesterol <200. HDL >45. Triglycerides <150. HgbA1C <7%. BMI <25 - Visit Date of Eval: 01/06/18 - 12/02/2017-12/27/2017 - Stages of Change Stages of Change:: Action - Diabetes Diabetes:: Yes Fasting blood glucose:: 143 Hgb A1C: 6.4 Non-Insulin Dependent?: Yes - Metformin 1000mg daily Random Blood Glucose:: 105 - Weight Management Weight:: 85.729 kg Weight Goal (kg):: 65.771 kg - Patient could benefit from formal counseling with dietitian Body Fat %:: 30 Total Score:: 12 - Intervention Referral to dietitian:: Yes Referral to Diabetic Clinic:: Yes Will attend diet classes:: Yes - Education Education Goal Reached?: Yes Tobacco - Initial Assessment - Program Goals Tobacco Program Goals: Complete smoking cessation. Attend education classes. Improve Knowledge Test score - Stage of Change Stages of Change:: Action - Learning Barriers Learning Barriers: Vision, Ready to Learn Total Score:: 0 - Family Support Do you have family support?: Yes - Tobacco Use Tobacco Use: Cigarettes - down to 2-3 cigarettes daily; plans to quit this week and not purchase more. How many cigarettes do you smoke per day?: 10 Years Smokin Do you use smokeless tobacco?: No - Intervention Smoking Cessation Referral:: Yes Individual Education/Counseling:: No Education Schedule Given:: Yes - Education Gave educational material for:: Tobacco triggers, Coronary artery disease, Risk factors, Sexuality, Medical compliance, Cardiac A&P, Angina signs & symptoms Tobacco - 30-Day Assessment - Program Goals Tobacco Program Goals: Complete smoking cessation. Attend education classes. Improve Knowledge Test score - Stage of Change Stages of Change:: Action - Learning Barriers Learning Barriers: Participates in education - Family Support Do you have family support?: Yes - Tobacco Use Tobacco Use: Cigarettes How many cigarettes do you smoke per day?: 10 Do you use smokeless tobacco?: No - Intervention Smoking Cessation Referral:: Yes Individual Education/Counseling:: No Education Schedule Given:: Yes - Education Attended class for:: Tobacco triggers, Coronary artery disease, Risk factors, Sexuality, Medical compliance, Cardiac A&P, Angina signs & symptoms Tobacco - 60-Day Assessment - Program Goals Tobacco Program Goals: Complete smoking cessation. Attend education classes. Improve Knowledge Test score - Stage of Change Stages of Change:: Action - Learning Barriers Learning Barriers: Participates in education - Family Support Do you have family support?: Yes - Tobacco Use Tobacco Use: Cigarettes How many cigarettes do you smoke per day?: 10 Do you use smokeless tobacco?: No - Intervention Smoking Cessation Referral:: Yes Individual Education/Counseling:: No Education Schedule Given:: Yes - Education Attended class for:: Tobacco triggers, Coronary artery disease, Risk factors, Sexuality, Medical compliance, Cardiac A&P, Angina signs & symptoms Tobacco - 90-Day Assessment - Program Goals Tobacco Program Goals: Complete smoking cessation. Attend education classes. Improve Knowledge Test score - Stage of Change Stages of Change:: Action - Learning Barriers Learning Barriers: Participates in education - Family Support Do you have family support?: Yes - Tobacco Use Tobacco Use: Cigarettes How many cigarettes do you smoke per day?: 10 Do you use smokeless tobacco?: No - Intervention Smoking Cessation Referral:: Yes Individual Education/Counseling:: No Education Schedule Given:: Yes - Education Attended class for:: Tobacco triggers, Coronary artery disease, Risk factors, Sexuality, Medical compliance, Cardiac A&P, Angina signs & symptoms Tobacco - Final Assessment - Program Goals Tobacco Program Goals: Complete smoking cessation. Attend education classes. Improve Knowledge Test score - Stage of Change Stages of Change:: Action - Learning Barriers Cardiac Knowledge Test Score:: 9 - Family Support Do you have family support?: Yes - Tobacco Use Tobacco Use: Cigarettes How many cigarettes do you smoke per day?: 10 Do you use smokeless tobacco?: No - Intervention Smoking Cessation Referral:: Yes Individual Education/Counseling:: No Education Schedule Given:: Yes - Education Education Goal Reached?: Yes Psychosocial - Initial Assess - Target Goals Target Goals: Assess presence or absence of depression. Using a valid screening tool, maximizes coping skills. Positive support system - Stages of Change Stages of Change:: Action - Psychosocial Test Tool Used:: HANDS Depression Questionnaire Tests Completed: SF - 36 survey completed, Mood Scale Test - 7 Total Mood Screening Score:: 0 - Mild depression per survey score. Self-Efficacy Score:: 0 - Patient very discouraged. - Patient/Program Goal Preventative Medication(s):: Aspirin, STEVE inhibitor, Clopidogrel, Beta rayna, Statin/lipid - Assistive Devices Assistive Devices:: None Fall Risk Assessed:: Yes Psychosocial - 30-Day Assess - Target Goals Target Goals: Assess presence or absence of depression. Using a valid screening tool, maximizes coping skills. Positive support system - Stages of Change Stages of Change:: Action - Psychosocial Test Tool Used:: HANDS Depression Questionnaire Self-reported stress:: None Total Mood Screening Score:: 0 - Mild depression per survey score. Self-Efficacy Score:: 0 - Patient very discouraged. - Patient/Program Goal Preventative Medication(s):: Aspirin, STEVE inhibitor, Clopidogrel, Beta rayna, Statin/lipid - Assistive Devices Assistive Devices:: None Fall Risk Assessed:: Yes Psychosocial - 60-Day Assess - Target Goals Target Goals: Assess presence or absence of depression. Using a valid screening tool, maximizes coping skills. Positive support system - Stages of Change Stages of Change:: Action - Psychosocial Test Tool Used:: HANDS Depression Questionnaire Total Mood Screening Score:: 0 - Mild depression per survey score. Self-Efficacy Score:: 0 - Patient very discouraged. - Patient/Program Goal Preventative Medication(s):: Aspirin, STEVE inhibitor, Clopidogrel, Beta rayna, Statin/lipid - Assistive Devices Assistive Devices:: None Fall Risk Assessed:: Yes Psychosocial - 90-Day Assess - Target Goals Target Goals: Assess presence or absence of depression. Using a valid screening tool, maximizes coping skills. Positive support system - Stages of Change Stages of Change:: Action - Psychosocial Test Tool Used:: HANDS Depression Questionnaire Total Mood Screening Score:: 0 - Mild depression per survey score. Self-Efficacy Score:: 0 - Patient very discouraged. - Patient/Program Goal Preventative Medication(s):: Aspirin, STEVE inhibitor, Clopidogrel, Beta rayna, Statin/lipid - Assistive Devices Assistive Devices:: None Fall Risk Assessed:: Yes Psychosocial - Final Assessmen - Target Goals Target Goals: Assess presence or absence of depression. Using a valid screening tool, maximizes coping skills. Positive support system - Stages of Change Stages of Change:: Action - Psychosocial Test Tool Used:: HANDS Depression Questionnaire Tests Completed: SF - 36 survey completed, Mood Scale Test - 7 Total Mood Screening Score:: 0 - Mild depression per survey score. Self-Efficacy Score:: 10 - Patient very discouraged. - Intervention PS - Interventions: Yes Attend Stress Management Classes, Yes Uses Stress Management Skills, No Referral to Mental Health, No Referral to [facility] Case Management, No Referral to Physician - Education Education Goal Reached?: Yes - Patient/Program Goal Preventative Medication(s):: Aspirin, STEVE inhibitor, Clopidogrel, Beta rayna, Statin/lipid - Assistive Devices Assistive Devices:: None Fall Risk Assessed:: Yes Patient Health Questionnaire Discharge Assessment 1. Little interest or pleasure in doing things: Not at all 2. Feeling down, depressed, or hopeless: Not at all 3. Trouble falling or staying asleep, or sleeping too much: Not at all 4. Feeling tired or having little energy: Not at all 5. Poor appetite or overeating: Not at all 6. Feeling bad about yourself -- or that you are a failure or have let yourself or your family down: Not at all 7. Trouble concentrating on things, such as reading the newspaper or watching television: Not at all 8. Moving or speaking so slowly that other people could have noticed. Or the opposite - being so fidgety or restless that you have been moving around a lot more than usual: Not at all 9. Thoughts that you would be better off , or of hurting yourself in some way: Not at all How difficult have these problems made it for you to do your work, take care of things at home, or get along with other people?: Not difficult at all Total Score: 0 Self-Efficacy Discharge Assessment We would like to know how confident you are in doing certain activities. Please select your confidence level for:: Select your confidence level for the following using the scale 1-10 where 1 is not at all confident and 10 is totally confident. Your score is the average of all 6 responses. Fatigue: How confident are you that you can keep the fatigue caused by your disease from interfering with the things you want to do? Select Number: 10 Physical Discomfort or Pain: How confident are you that you can keep the physical discomfort or pain of your disease from interfering with the things you want to do? Select Number: 10 Emotional Distress: How confident are you that you can keep the emotional distress caused by your disease from interfering with the things you want to do? Select Number: 10 Other Symptoms or Health Problems: How confident are you that you can keep other symptoms or health problems from interfering with the things you want to do? Select Number: 10 Different Tasks and Activities: How confident are you that you can do the different tasks and activities needed to manage your health condition so as to reduce your need to see a doctor? Select Number: 10 Medication: How confident are you that you can do things other than just taking medication to reduce how much your illness affects your everyday life? Select Number: 10 Total Score:: 10 Cardiac Rehabilitation Goals - Cardiac Rehab Goals Cardiac Rehabilitation Goals: 1. Maintain the individual as the primary focus of care. 2. To improve the patient's quality of life. 3. Identification of cardiac risk factors and provide cardiac risk factor management. 4. Enhance the psychosocial status of the patient. 5. Reconditioning enough to allow the patient to resume customary activities. 6. Control symptoms of cardiac disease - Scale Scale for measuring improvement of personal goals: Enter appropriate number in Comments. 2 = Unchanged. 3 = Slightly Better. 4 = Moderate Improvement. 5 = Met my Goal Discharge Assessment Personal Goals: Discharge Reassessment: Participate in home exercise program, Get back to work, or to resume activities faster, Improve knowledge of cardiac disease, Improve muscle strength and endurance, Improve diet and eating habits ( eat healthier), Control risk factors (learn risk factor modification)
== END 2017-12-30 14:15 | disposition home or self-care (01) ==
LOC: CR 13:00
PROVIDERS: Family Provider Family Medicine; PCP Family Medicine; Visit Provider Internal Medicine Cardiovascular Disease
DX: Z95.5 Presence of coronary angioplasty implant and graft (principal); I25.10 Atherosclerotic heart disease of native coronary artery without angina pectoris
CPT/HCPCS: 93798

== ENCOUNTER → 2018-09-12 05:42 | Outpatient (CLI) | payer OTHER, SELFPAY ==
[2018-08-28 11:13] VITALS: BMI 32.4
--- NOTE | 2018-09-12 13:58 | LEAS ---
Arterial Study - Arterial Study Arterial Study: Bilateral lower extremity noninvasive arterial exam at rest Patient with bilateral lower extremity pain Right lower extremity The right PT and DP ankle-brachial indices at rest to 1.05 and 1 respectively with digital index of 0.86. The right posterior tibial and dorsalis pedis waveforms are triphasic. Volume pulse recordings do not demonstrate implication of the calf but the ankle and digital waveforms are well maintained Left lower extremity The left PT and DP ankle-brachial index at rest of 1.09 and 1.0 respectively. The digital index is 0.91. The left posterior tibial and dorsalis pedis Doppler waveforms are triphasic. The volume pulse recordings do not demonstrate application of the calf but the ankle and digital waveforms are well maintained Impression Normal bilateral lower extremity noninvasive arterial exam at rest. Wali Rodrigues M.D., F.A.C.S.
--- NOTE | 2018-09-12 15:07 | STRESSREP_ITS ---
Stress Test Report Date: 11/12/2017 Procedure: Pharmacologic stress nuclear imaging study Indications: Chest pain; CAD; PCI Consent: Per the patient Procedure: The patient underwent pharmacologic (Regadenoson) evaluation with a peak heart rate of 93 beats per minute (58 predicted maximal heart rate) and a peak blood pressure of 142/80 mmHg. The baseline ECG demonstrated sinus bradycardia; nonspecific T wave abnormality. The peak pharmacologic ECG demonstrated no obvious ECG changes. There was an isolated PVC during infusion. There was no complaint of chest discomfort during pharmacologic infusion or recovery. The examination was discontinued secondary to completion of protocol. Impression: 1. Pharmacologic (Regadenoson) evaluation 2. Peak pharmacologic ECG with no obvious ECG changes. 3. There was an isolated PVC during infusion. 4. Nuclear images pending Myocardial perfusion imaging study: Technique: The patient was injected with 11.9 millicuries of technetium 99m Cardiolite and subsequently rest SPECT Cardiolite nuclear imaging was obtained in the horizontal long, vertical long, and short axis views. The patient underwent pharmacologic (Regadenoson) evaluation with a peak heart rate of 93 beats per minute (58 % percent predicted maximal heart rate) and a peak blood pressure of 142/80 mmHg. The patient was injected with 33.6 millicuries of technetium 99m Cardiolite and subsequently stress SPECT Cardiolite nuclear imaging was obtained in the horizontal long, vertical long, and short axis views. A gated Cardiolite study at peak stress was obtained. Interpretation: Rest and stress SPECT Cardiolite nuclear imaging status post realignment, normalization, and attenuation correction demonstrate relative uniform tracer uptake and myocardial perfusion at rest. Status post stress there appears to be an area of subtle diminished tracer uptake in portions of the mid towards distal anterior segments. There are similar type findings on the resting and stress polar map images. There is end systolic thickening and brightening. The gated Cardiolite study demonstrates myocardial thickening and inward wall motion. The reported LVEF is 69 %. Impression: 1. Rest and stress SPECT Cardiolite nuclear imaging demonstrate subtle myocardial perfusion changes in the mid to distal anterior segment status post stress potentially compatible with shifting soft tissue attenuation/artifact although an area of myocardial ischemia cannot necessarily be excluded. 2. The gated Cardiolite study reports an LVEF of 69 %. This note was generated with [employer] software. It may contain incorrect words, spelling, and punctuation that were not noted in checking the note before signing.
--- OUTSIDE RECORDS SUMMARY | 2018-11-07 00:44 | XMS RPT_ITS ---
:1960 Author Organization OHIP Support Name Relationship Address Phone LARRYPATRICIA Unavailable [address] + [address] [place] [address] CATY PACK Unavailable [address] + [address] [place] [address] UE Unavailable Unavailable Unavailable PATRICIA PACK Unavailable [address] + [address] [place] [address] UE Unavailable Unavailable Unavailable PATRICIA PACK Unavailable [address] + [address] [place] [address] UE Unavailable Unavailable Unavailable LARRYPATRICIA Unavailable [address] + [address] [place] [address] UE Unavailable Unavailable Unavailable LARRYPATRICIA Unavailable [address] + [address] [place] [address] UE Unavailable Unavailable Unavailable LARRYPATRICIA Unavailable [address] + [address] [place] [address] UE Unavailable Unavailable Unavailable LARRYPATRICIA Unavailable [address] + [address] [place] [address] UE Unavailable Unavailable Unavailable LARRYPATRICIA Unavailable [address] + [address] [place] [address] UE Unavailable Unavailable Unavailable LARRYPATRICIA Unavailable [address] + [address] [place] [address] UE Unavailable Unavailable Unavailable LARRYPATRICIA Unavailable [address] + [address] [place] [address] UE Unavailable Unavailable Unavailable PATRICIA PACK Unavailable [address] + [address] [place] [address] UE Unavailable Unavailable Unavailable LARRYPATRICIA Unavailable [address] [place] [address] UE Unavailable Unavailable Unavailable LARRYPATRICIA Unavailable [address] [place] [address] UE Unavailable Unavailable Unavailable Care Team Providers Name Role Phone TIFFANIE BOWIE (NEWS SPECIALIST) Referring Unavailable DARWIN ESQUEDA Referring Unavailable THORPEMIGUEL (SUPERVISOR BURLING AND JOINING) Attending Unavailable KULDEEPTADARWIN Phillips R Referring Unavailable THORPE, MIGUEL (SUPERVISOR BURLING AND JOINING) Referring Unavailable EVAN GEORGE Admitting Unavailable EVAN GEORGE Attending Unavailable THORPE, MIGUEL (SUPERVISOR BURLING AND JOINING) Referring Unavailable CORNIELLOTIFFANIE (NEWS SPECIALIST) Referring Unavailable THORPE, MIGUEL (SUPERVISOR BURLING AND JOINING) Attending Unavailable THORPE, MIGUEL (SUPERVISOR BURLING AND JOINING) Referring Unavailable TALAMPAS, FENG D Attending Unavailable TALAMPAS, FENG D Referring Unavailable JEEVANALEM (NEWS SPECIALIST) Referring Unavailable TALAMPAS, FENG D Referring Unavailable TALAMPAS, FENG D Attending Unavailable TALAMPAS, FENG D Referring Unavailable MARV LYLE Attending Unavailable TALAMPAS, FENG D Referring Unavailable TALAMPAS, FENG D Referring Unavailable MoodispaIsac tam Attending Unavailable Kuldeeptajacqueline, Olivier Primary Care Unavailable Patricia Bailey Attending Unavailable Olivier Esqueda Referring Unavailable Kontak, Olivier Primary Care Unavailable MoodispaIsac tam Attending Unavailable Kika Olivier Primary Care Unavailable MoodIsac harris Attending Unavailable [facility] Unavailable MoodisIsac caraballo Attending Unavailable [facility] Unavailable Patricia Bailey Attending Unavailable Iwona Suresh Attending Unavailable KuldeeptaOlivier phillips Referring Unavailable Tiffanie Mcdonald Attending Unavailable RoofPatricia Attending Unavailable Talampas, Feng Referring Unavailable RoofPatricia Attending Unavailable TalampasVandanaa Referring Unavailable RoofPatricia Attending Unavailable RoofPatricia Referring Unavailable Talampas, Feng Primary Care Unavailable Patricia Bailey Attending Unavailable Talampas, Feng Referring Unavailable MoodispaIsac tam Attending Unavailable MoodispaIsac tam Referring Unavailable Talampas, Feng Primary Care Unavailable PROBLEMS PROBLEMS DATE TYPE CONDITION / CODE ATTENDING STATUS SOURCE 08/28/2018 Unknown Z95.9 - Presence of Patricia Bailey Active [place] [facility] implant and graft, Hospital unspecified / Repository Z95.9(ICD-10) 08/28/2018 Unknown I25.10 - Patricia Bailey Active [place] Atherosclerotic heart Community disease of [facility] coronary artery Repository without angina pectoris / I25.10(ICD-10) 08/28/2018 Unknown I73.9 - Peripheral Patricia Bailey Active [facility] vascular disease, Community unspecified / Hospital I73.9(ICD-10) Repository 08/28/2018 Unknown F17.210 - Nicotine Patricia Bailey Active [place] dependence, Community cigarettes, Hospital uncomplicated / Repository F17.210(ICD-10) 08/28/2018 Unknown I10 - Essential Patricia Bailey Active [place] (primary) [facility] hypertension / Hospital I10(ICD-10) Repository 10/16/2016 Active Type 2 diabetes NA Active [facility] mellitus without [facility] Main complications / [place] E11.9(ICD-10) Repository 04/28/2015 Active Essential (primary) LEBRON Active [facility] hypertension / Clinic Main I10(ICD-10) [facility] Repository 12/30/2017 Active Encounter for LEBRON Active [facility] screening mammogram [facility] for malignant [facility] neoplasm of breast / Repository Z12.31(ICD-10) 01/01/2018 Unknown Z95.5 - Presence of Isac Davila Active [place] coronary angioplasty Community implant and graft / Hospital Z95.5(ICD-10) Repository 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/2017 Active 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 / [place] Z79.899(ICD-10) Repository 11/06/2017 Active Functional dyspepsia ELY Active [place] / K30(ICD-10) [facility] Main [place] Repository 11/06/2017 Active Personal history of Rodo GEORGE colonic polyps / [facility] Main Z86.010(ICD-10) [facility] Repository 11/06/2017 Active Cough / R05(ICD-10) NA Active [facility] Main [place] Repository 04/28/2015 Active Hyperlipidemia, NA Active [facility] unspecified / Clinic Main E78.5(ICD-10) [facility] Repository 10/09/2017 Active Vitamin D deficiency, NA Active [facility] unspecified / Clinic Main E55.9(ICD-10) [facility] Repository PROCEDURES PROCEDURES No Procedure Records FoundRESULTS RESULTS CARDIOLOGY VISIT Observed: 09/18/2018 Status: F Source: [place] REPORT 1:32 PM [facility] REPOSIT[facility] [address] [place] [address] OFFICE VISIT Date of Service: 09/18/18 MR#: [id number] Acct: [id number] Name: CATY PACK Rep #: [id number] : 1960 Provider: JODIE Bailey Age/Sex: 58/F Location: [facility] Status: Signed HPI HPI Details: CATY PACK, is a 58 F who presents to the office today for a cardiovascular outpatient follow-up. She has a history of coronary artery disease status post stenting to her proximal OM and LAD in October 2016 and again to her LAD in August 2017 for in-stent restenosis, hyperlipidemia, diabetes mellitus, and nicotine dependence. After last office visit patient underwent a stress test to further evaluate chest pain. Her stress test showed an area of myocardial ischemia could not necessarily be excluded. Because of this, she will undergo a left heart catheterization. She presents today for updating health and physical. She continues with center chest pain. Pt denies arm, jaw, or neck discomfort. Her exercise tolerance is stable. Pt denies symptoms of CHF, palpitations, lightheadedness, dizziness, near syncopal or syncopal episodes. Pt denies edema or claudication issues. Pt. denies orthopnea, PND, fever, chills, blood in urine, blood in stool, myalgia, or unexplainable fatigue. Intake Vital Signs09/18/18 Height 5 ft 4 in 09/18/18 Weight: 185 lb 09/18/18 Body Mass Index (BMI) 31.7 09/18/18 Blood Pressure 114/66 09/18/18 Blood Pressure Location Lt brachial Intake Visit Reasons: 3 wk f/up Neurology Director Required: No Accompanied by: None Is patient in pain?: No Allergies diltiazem Allergy (Verified 09/18/18 11:43) Unknown levofloxacin [From Levaquin] Adverse Reaction (Verified 09/18/18 11:43) Upset Stomach meperidine HCl [From Demerol] Adverse Reaction (Verified 09/18/18 11:43) Vomiting rosuvastatin calcium [From Crestor] Adverse Reaction (Verified 09/18/18 11:43) Pain in joints Tetracyclines Adverse Reaction (Verified 09/18/18 11:43) Upset Stomach tramadol Adverse Reaction (Verified 09/18/18 11:43) Diarrhea Medications Albuterol IH (ProAir) [Proair Hfa] 1 puff INHALATION Q6H PRN PRN 12/16/14 [History Confirmed 09/18/18] Metformin HCl [Glucophage] 1,000 mg PO BID 12/16/14 [History Confirmed 09/18/18] Trazodone HCl 150 mg PO QHS 12/16/14 [History Confirmed 09/18/18] Nitroglycerin [Nitrostat] 0.4 mg SUBLINGUAL Q5M PRN #25 tab 10/20/16 [Rx Confirmed 09/18/18] aspirin 81 mg tablet,delayed release 81 mg PO DAILY@0800 #90 tab 10/03/17 [Rx Confirmed 09/18/18] clopidogrel 75 mg tablet 75 mg PO DAILY #90 tab 10/03/17 [Rx Confirmed 09/18/18] pantoprazole 40 mg tablet,delayed release 40 mg PO DAILY #90 tab 10/03/17 [Rx Confirmed 09/18/18] metoprolol tartrate 50 mg tablet 50 mg PO BID tab 02/21/18 [History Confirmed 09/18/18] pravastatin 80 mg tablet 80 mg PO DAILY 08/28/18 [History Confirmed 09/18/18] Ejection fraction %: 60 to 64 PFSH Medical History Dyspnea on exertion (Acute) Claudication (Chronic) Hypertension (Chronic) Abnormal electrocardiogram (Chronic) Cardiac murmur (Chronic) Abnormal stress test (Chronic) Atypical chest pain (Resolved) Cigarette nicotine dependence (Chronic) Hyperlipemia, mixed (Chronic) Atherosclerosis of [place] coronary artery of [place] heart without angina pectoris (Chronic) Diabetes (Chronic) CAD (coronary artery disease), [place] coronary artery (Acute) Chest pain (Acute) Fatigue (Acute) Syncope and collapse (Acute) History of hysterectomy (Resolved) Surgical History S/P angioplasty with stent (Chronic) History of cholecystectomy (Resolved) History of ear surgery (Resolved) History of thyroid nodule (Resolved) History of tonsillectomy (Resolved) History of total bilateral knee replacement (Resolved) Hx of sinus surgery (Resolved) Family History Mother CAD (coronary artery disease) Mother CVA (cerebral vascular accident) Diabetes Brother Myocardial infarction Cancer History of PTCA Diabetes Social History Smoking Status: Current every day smoker alcohol intake: never substance use type: does not use caffeine: Yes Type: coffee Number of servings: 6 what type of physical activity do you participate in: other details: cardiac rehab frequency: 3-4 times per week duration: 15-30 minutes/day seatbelt use: always do you feel safe at home: Yes ROS Const Const: Negative for fatigue, weakness, body ache, fever(s) or chills ENT ENT: Negative for dizziness Cardio Chest Pain: Yes Palpitations: No Edema: None Muscle aches with walking: None Resp Respiratory: Negative for SOB with activity, SOB at rest, SOB orthopnea\SOB lying down or paroxysmal nocturnal dyspnea GI GI: Negative nausea, black,tarry stools, bright, red blood in stools or vomiting blood/hematemesis : Negative for hematuria or frequent nighttime urination/ nocturia Musc Musc: Negative for muscle aches/ myalgia Skin Skin: Negative non-healing lesions or rash Neuro Neuro: Negative for weakness, dizziness, lightheadedness, near syncope, syncope or orthostatic symptoms Endo Endo: Negative for fatigue Allergy Allergy/Immunology: Negative for rash Cardiology Exam Const Appearance: cooperative, healthy appearing, comfortable and no acute distress Nutritional Appearance: average body habitus and obese Orientation: alert, awake and oriented x3 Head Head: normal to inspection Ears: hearing grossly normal bilaterally Nose: external nose normal Face and Sinus: face symmetric Mouth: oral mucosae normal Eyes General: appearance normal, both eyes and all related structures Eyelids: eyelids normal Neck Neck: no JVD and normal visual inspection Carotids: normal carotid upstroke Chest Chest inspection: normal inspection of the chest, normal respiratory effort and symmetric chest movement; negative cough Auscultation: Bilateral: Clear to Auscultation Cardio Rate: regular rate Rhythm: regular rhythm Heart sounds: S1 normal and S2 normal; negative rub, gallop or murmur GI GI: obese Neuro General: alert, awake, oriented x3 and CN's II-XI intact bilaterally Skin Skin: no rashes or lesions noted Extremities Pulses: Normal: Right Posterior Tibial Pulse, Left Posterior Tibial Pulse, Right Radial Pulse, Left Radial Pulse Lower Extremity Edema: None: Bilateral Psych Psychological: normal affect Supplemental Info Stress test from August 2018 showed subtle myocardial perfusion changes in the mid to distal anterior segment status post stress potentially compatible with shifting soft tissue attenuation/artifact although an area of myocardial ischemia cannot necessary be excluded and ejection fraction of 69%. Peak ECG showed no obvious ECG changes. Heart catheterization from October 2016 showed an ejection fraction of 60%, left main coronary artery that is angiographically normal, LAD with proximal 95% stenosis followed by 25-50% stenosis, diagonal branch 1 with 25-50% stenosis, OM 2 with proximal 25% stenosis followed by mid 25-50% stenosis, OM 4 with 95% stenosis, RCA with 85% stenosis, and mild to moderate mitral valve regurgitation that was partially catheter/PVC induced. Heart catheterization from August 2017 showed left main is angiographically normal, proximal LAD with previous placed stent with 95% restenosis, mid LAD with 25% stenosis, distal LAD with mild luminal irregularities, diagonal 1 with 50% stenosis, OM1 with mild luminal irregularities, OM 2 with 25-50% stenosis, OM 3 with previous placed stent is patent, normal aortic valve function, mitral valve insufficiency grade 1, and angiographically normal aortic root. She underwent drug-eluting stent to 95% in-stent restenosis LAD. Echocardiogram from September 2016 showed an ejection fraction of 60%, mildly enlarged left atrium, trivial mitral valve insufficiency, trivial tricuspid valve insufficiency, mild focal aortic valve calcification, and bubble contrast study negative for right to left interatrial shunt. Assessment AND Plan 1. Atypical chest pain R07.89 Plan She continues with chest pain in the center of her chest. This is not worsened since last office visit. She will undergo further evaluation with a left heart catheterization. Further recommendation will be made based on results of this test. 2. S/P angioplasty with stent Z95.820 PCI to LAD 2016 Plan This will be further evaluated during her left heart catheterization. She does have a history of stenting to her OM and LAD in March 2017 and again to her LAD in August 2017 for in-stent restenosis. 3. Essential hypertension I10 Plan Patient's blood pressure is well-controlled today in the office. We will continue to monitor this. We will not make any medication regimen changes. 4. Hyperlipemia, mixed E78.2 Plan She will continue with current high dose of statin medication. 5. Claudication I73.9 Plan Her lower extremity arterial study in August 2018 showed normal bilateral lower extremity noninvasive arterial scan at rest. She continues to have claudication symptoms on exertion. She was instructed that further consideration for vascular evaluation during exercise can be considered based on symptoms. We will discuss this further at next office visit. 6. Cigarette nicotine dependence without complication F17.210 Plan She does continue to smoke. She was reminded the importance of smoking cessation in relation to both cardiovascular and pulmonary health. She acknowledged understanding. We will continue to promote and support smoking cessation. 7. Diabetes E11.9 Plan She was reminded the importance of diabetic control in relation to cardiovascular health. She acknowledged understanding. Plan Detail Additional Comments Thank you for allowing us to participate in the patients plan of care, if you have any questions please do not hesitate to call. This note was generated using a voice recognition system and there may be incorrect words, spelling or punctuation that were not noted when reviewing the office note prior to saving. Coding Level of Care Code Off vis,est,level 3 Diagnoses Atypical chest pain R07.89 S/P angioplasty with stent Z95.820 Essential hypertension I10 Hypertension type: essential hypertension Hyperlipemia, mixed E78.2 Claudication I73.9 Cigarette nicotine dependence without complication F17.210 Substance use status: uncomplicated Diabetes E11.9 Coding Level of Care Code Off vis,est,level 3 Diagnoses Atypical chest pain R07.89 S/P angioplasty with stent Z95.820 Essential hypertension I10 Hypertension type: essential hypertension Hyperlipemia, mixed E78.2 Claudication I73.9 Cigarette nicotine dependence without complication F17.210 Substance use status: uncomplicated Diabetes E11.9 09/18/18 1332 <Electronically signed by Patricia MANDUJANO> Date Patricia MANDUJANO Cosigner Signature: Date (if applicable) CC: Feng Tejada MD CBC-COMPLETE BLOOD CNT Collected: 09/18/2018 Status: F Source: [place] NO DIFF 12:35 PM [facility] REPOSITORY TYPE CODE TESTS RESULT OUT OF RANGE REFERENCE UNITS LAB L100.1000 4.4-11.0 K/mm3 Normal WBC 7.3 LAB L100.1200 4.2-5.4 M/mm3 Normal RBC 4.59 LAB L100.1300 12.0-15.0 g/dl Normal HGB 13.0 LAB L100.1400 37-47 % Normal HCT 39.8 LAB L100.1500 81-99 fL Normal MCV 86.7 LAB L100.1600 27.0-32.0 pg Normal MCH 28.3 LAB L100.1700 32-36 g/gl Normal MCHC 32.7 LAB L100.1810 11.6-14.6 % Normal RDW CV 14.1 LAB L100.1820 35.1-43.9 fl Normal RDW SD 43.9 LAB L100.1900 150-450 K/mm3 Normal PLT 204 LAB L100.2000 6.2-12.0 fl Normal MPV 10.8 Performed By: #### L100.0500 #### [facility] [address] [place], [place], [id number] PROTHROMBIN TIME W/INR Collected: 09/18/2018 Status: F Source: [place] 12:35 PM [facility] REPOSITORY TYPE CODE TESTS RESULT OUT OF RANGE REFERENCE UNITS LAB L300.4150 11.7-14.9 SECONDS Normal PROTIME 13.3 LAB L300.4200 Normal INR 1.0 Performed By: #### L300.3900, L300.4310 #### [facility] [address] [place], [place], [id number] PARTIAL THROMBOPLAST Collected: 09/18/2018 Status: F Source: [place] TIME 12:35 PM [facility] REPOSITORY TYPE CODE TESTS RESULT OUT OF RANGE REFERENCE UNITS LAB L300.4310 24.1-36.2 Seconds Normal PTT 27.2 Performed By: #### L300.3900, L300.4310 #### [facility] [address] [place], [place], [address] BASIC METABOLIC Collected: 09/18/2018 Status: F Source: [place] PROFILE (BMP) 12:35 PM [facility] REPOSITORY TYPE CODE TESTS RESULT OUT OF RANGE REFERENCE UNITS LAB L501.0100 74-106 mg/dL High GLU 134 Result Comment: Fasting Glucose result greater than or equal to 126 mg/dL suggests DIABETES MELLITUS per A.D.A. criteria. Please note revised GLUCOSE reference range effective 2017. LAB L501.1000 7-18 mg/dL Normal BUN 8 LAB L501.1100 0.55-1.02 mg/dL Normal CREAT,SERUM 0.72 Result Comment: The validity of the calculated GFR AND GFRAA in patients over 70 years has not been determined. Clinical correlation is essential. LAB L501.1110 >60 mL/min Normal EST GFR 88 Result Comment: Non- GFR Calc LAB L501.1115 >60 mL/min Normal EST GFR - AA 107 Result Comment: GFR Calc LAB L501.1300 10-20 RATIO Normal BUN/CRE 11.1 LAB L501.2200 8.5-10.1 mg/dL CA Normal 8.7 LAB L501.5300 136-145 mmol/L NA Normal 140 LAB L501.5600 3.5-5.1 mmol/L K Normal 4.3 LAB L501.5900 98-107 mmol/L CL Normal 105 LAB L501.6100 21.0-32.0 mmol/L Normal CO2 28.0 LAB L501.6200 5-15 Normal GAP 7 Performed By: #### L500.2500 #### [facility] [address] [place], [address] CHEST PA AND LATERAL Observed: 09/18/2018 Status: F Source: [place] 12:12 PM [facility] REPOSITORY [facility] Imaging Services [address] [place] [address] Chest PA and Lateral MR#: [id number] Acct: [id number] Name: CATY PACK Rep #: [id number] : 1960 F 58 From: Bismark Wei MD PCP: Feng Tejada MD Status: PRE [facility] Study: Chest PA and Lateral Date of Exam: 09/18/18 Exam# [id number] Ordering Dr: Isac Davila MD STUDY: X-RAY CHEST REASON FOR EXAM: Female, 58 years old. Abnormal stress test and chest pain TECHNIQUE: Frontal and lateral views of the chest. COMPARISON: 09/03/2017 FINDINGS: Clip in the right breast. The lungs are clear and expanded. There is no demonstrated pleural abnormality. Normal size heart. Normal mediastinum and caroline. Normal visualized pulmonary arteries. Normal visualized aortic arch and descending thoracic aorta. Normal visualized thoracic spine. Normal visualized ribs, clavicles, and shoulders. There is no demonstrated abnormality of the visualized soft tissue structures of the upper abdomen. RAD/Chest PA and Lateral IMPRESSION: No acute pulmonary findings. Electronically Signed: Bismark Wei MD at 8:44 EST Tel , Service support , CC: Feng Tejada MD; Isac Davila MD Cut Order Hand: Signed STRESS REPORT Observed: 09/12/2018 Status: F Source: [place] 3:07 PM [facility] REPOSITORY [facility] Cardiovascular Services [address] [place] [address] MR#: [id number] Acct: [id number] Name: CATY PACK Rep #: [id number] : 1960 58 From: Isac Davila MD Primary Care: Feng Tejada MD Status: REG CLI Ordering Dr: Sex: F C Stress Test Report Date: 11/12/2017 Procedure: Pharmacologic stress nuclear imaging study Indications: Chest pain; CAD; PCI Consent: Per the patient Procedure: The patient underwent pharmacologic (Regadenoson) evaluation with a peak heart rate of 93 beats per minute (58 predicted maximal heart rate) and a peak blood pressure of 142/80 mmHg. The baseline ECG demonstrated sinus bradycardia; nonspecific T wave abnormality. The peak pharmacologic ECG demonstrated no obvious ECG changes. There was an isolated PVC during infusion. There was no complaint of chest discomfort during pharmacologic infusion or recovery. The examination was discontinued secondary to completion of protocol. Impression: 1. Pharmacologic (Regadenoson) evaluation 2. Peak pharmacologic ECG with no obvious ECG changes. 3. There was an isolated PVC during infusion. 4. Nuclear images pending Myocardial perfusion imaging study: Technique: The patient was injected with 11.9 millicuries of technetium 99m Cardiolite and subsequently rest SPECT Cardiolite nuclear imaging was obtained in the horizontal long, vertical long, and short axis views. The patient underwent pharmacologic (Regadenoson) evaluation with a peak heart rate of 93 beats per minute (58 % percent predicted maximal heart rate) and a peak blood pressure of 142/80 mmHg. The patient was injected with 33.6 millicuries of technetium 99m Cardiolite and subsequently stress SPECT Cardiolite nuclear imaging was obtained in the horizontal long, vertical long, and short axis views. A gated Cardiolite study at peak stress was obtained. Interpretation: Rest and stress SPECT Cardiolite nuclear imaging status post realignment, normalization, and attenuation correction demonstrate relative uniform tracer uptake and myocardial perfusion at rest. Status post stress there appears to be an area of subtle diminished tracer uptake in portions of the mid towards distal anterior segments. There are similar type findings on the resting and stress polar map images. There is end systolic thickening and brightening. The gated Cardiolite study demonstrates myocardial thickening and inward wall motion. The reported LVEF is 69 %. Impression: 1. Rest and stress SPECT Cardiolite nuclear imaging demonstrate subtle myocardial perfusion changes in the mid to distal anterior segment status post stress potentially compatible with shifting soft tissue attenuation/artifact although an area of myocardial ischemia cannot necessarily be excluded. 2. The gated Cardiolite study reports an LVEF of 69 %. This note was generated with Stemgentation software. It may contain incorrect words, spelling, and punctuation that were not noted in checking the note before signing. 09/12/18 1507 <Electronically signed by Isac Davila MD> Date Isac Davila MD CC: JODIE Bailey; Feng Tejada MD Date Dictated: 09/12/184 Date Transcribed: 09/12/181503 Cut Order Hand: PM Signed LOWER EXT ARTERIAL Observed: 09/12/2018 Status: F Source: [facility] [facility] 2:00 PM [facility] REPOSITORY [facility] [place] [place] [address] 09/12/18 1358 MR#: [id number] Acct: [id number] Name: CATY PACK Rep #: [id number] : 1960 58 From: Wali Rodrigues MD Attending Dr: Patricia Bailey NP Status: REG CLI Ordering Dr: Date: 09/12/18 Location: [facility] Sex: F C Admitted: Arterial Study - Arterial Study Arterial Study: Bilateral lower extremity noninvasive arterial exam at rest Patient with bilateral lower extremity pain Right lower extremity The right PT and DP ankle-brachial indices at rest to 1.05 and 1 respectively with digital index of 0.86. The right posterior tibial and dorsalis pedis waveforms are triphasic. Volume pulse recordings do not demonstrate implication of the calf but the ankle and digital waveforms are well maintained Left lower extremity The left PT and DP ankle-brachial index at rest of 1.09 and 1.0 respectively. The digital index is 0.91. The left posterior tibial and dorsalis pedis Doppler waveforms are triphasic. The volume pulse recordings do not demonstrate application of the calf but the ankle and digital waveforms are well maintained Impression Normal bilateral lower extremity noninvasive arterial exam at rest. Wali Rodrigues M.D., F.A.C.S. 09/12/18 1400 <Electronically signed by Wali Rodrigues MD> Date Wali Rodrigues MD CC: JODIE Bailey; Feng Tejada MD Date Dictated: 09/12/181357 Date Transcribed: 09/12/181357 Cut Order Hand: BLAKE Signed CARDIOLOGY VISIT Observed: 08/28/2018 Status: F Source: [place] REPORT 1:08 PM [facility] REPOSITORY [facility] [address] [place] [address] OFFICE VISIT Date of Service: 08/28/18 MR#: [id number] Acct: [id number] Name: CATY PACK Rep #: [id number] : 1960 Provider: JODIE Bailey Age/Sex: 58/F Location: [facility] Status: Signed HPI HPI Details: CATY PACK, is a 58 F who presents to the office today for a cardiovascular outpatient follow-up. She has a history of coronary artery disease status post stenting to her proximal OM and LAD in October 2016 and again to her LAD in August 2017 for in-stent restenosis, hyperlipidemia, diabetes mellitus, and nicotine dependence. She states having chest pain more often since last office visit. This occurs mainly at rest. This is also noticed with exertion as well. This will improve on its own in several minutes. She denies any SOB or edema associated with the pain. This can be associated with occasional diaphoresis or jaw pain. She denies SOB without chest pain. She states palpitations a couple times a week lasting for a few minutes. She states her palpitations can be associated with lightheadedness and dizziness. This has resulted in a fall. She denies any mike syncopal episodes. She She states bilateral leg pain with ambulation in her lower legs. Pt. denies edema, orthopnea, PND, fever, chills, blood in urine, blood in stool, or myalgia. Intake Vital Signs08/28/18 Height 5 ft 4 in 08/28/18 Weight: 189 lb 08/28/18 Body Mass Index (BMI) 32.4 08/28/18 Blood Pressure 130/68 H Intake Visit Reasons: 6 m Neurology Director Required: No Accompanied by: Is patient in pain?: No Allergies diltiazem Allergy (Verified 08/28/18 11:20) Unknown levofloxacin [From Levaquin] Adverse Reaction (Verified 08/28/18 11:20) Upset Stomach meperidine HCl [From Demerol] Adverse Reaction (Verified 08/28/18 11:20) Vomiting rosuvastatin calcium [From Crestor] Adverse Reaction (Verified 08/28/18 11:20) Pain in joints Tetracyclines Adverse Reaction (Verified 08/28/18 11:20) Upset Stomach tramadol Adverse Reaction (Verified 08/28/18 11:20) Diarrhea Medications Albuterol IH (ProAir) [Proair Hfa] 1 puff INHALATION Q6H PRN PRN 12/16/14 [History Confirmed 08/28/18] Metformin HCl [Glucophage] 1,000 mg PO BID 12/16/14 [History Confirmed 08/28/18] Trazodone HCl 150 mg PO QHS 12/16/14 [History Confirmed 08/28/18] Nitroglycerin [Nitrostat] 0.4 mg SUBLINGUAL Q5M PRN #25 tab 10/20/16 [Rx Confirmed 08/28/18] aspirin 81 mg tablet,delayed release 81 mg PO DAILY@0800 #90 tab 10/03/17 [Rx Confirmed 08/28/18] clopidogrel 75 mg tablet 75 mg PO DAILY #90 tab 10/03/17 [Rx Confirmed 08/28/18] pantoprazole 40 mg tablet,delayed release 40 mg PO DAILY #90 tab 10/03/17 [Rx Confirmed 08/28/18] metoprolol tartrate 50 mg tablet 50 mg PO BID tab 02/21/18 [History Confirmed 08/28/18] pravastatin 80 mg tablet 80 mg PO DAILY 08/28/18 [History Confirmed 08/28/18] PFSH Medical History Hypertension (Chronic) Abnormal electrocardiogram (Chronic) Cardiac murmur (Chronic) Abnormal stress test (Chronic) Atypical chest pain (Resolved) Cigarette nicotine dependence (Chronic) Hyperlipemia, mixed (Chronic) Atherosclerosis of [place] coronary artery of [place] heart without angina pectoris (Chronic) Diabetes (Chronic) CAD (coronary artery disease), [place] coronary artery (Acute) History of hysterectomy (Resolved) Chest pain (Acute) Fatigue (Acute) Syncope and collapse (Acute) Surgical History S/P angioplasty with stent (Chronic) History of cholecystectomy (Resolved) History of ear surgery (Resolved) History of thyroid nodule (Resolved) History of tonsillectomy (Resolved) History of total bilateral knee replacement (Resolved) Hx of sinus surgery (Resolved) Family History Mother CAD (coronary artery disease) Mother CVA (cerebral vascular accident) Diabetes Brother Myocardial infarction Cancer History of PTCA Diabetes Social History Smoking Status: Current every day smoker alcohol intake: never substance use type: does not use caffeine: Yes Type: coffee Number of servings: 6 what type of physical activity do you participate in: other details: cardiac rehab frequency: 3-4 times per week duration: 15-30 minutes/day seatbelt use: always do you feel safe at home: Yes ROS Const Const: Positive for fatigue; negative for weakness, body ache, fever(s) or chills ENT ENT: Positive for dizziness Cardio Chest Pain: Yes Palpitations: No Edema: None Muscle aches with walking: Bilateral Resp Respiratory: Positive for SOB with activity; negative for SOB at rest, SOB orthopnea\SOB lying down or paroxysmal nocturnal dyspnea GI GI: Negative nausea, black,tarry stools, bright, red blood in stools or vomiting blood/hematemesis : Negative for hematuria or frequent nighttime urination/ nocturia Musc Musc: Negative for muscle aches/ myalgia Skin Skin: Negative non-healing lesions or rash Neuro Neuro: Positive for dizziness, lightheadedness and near syncope; negative for weakness, syncope or orthostatic symptoms Endo Endo: Positive for fatigue Allergy Allergy/Immunology: Negative for rash Cardiology Exam Const Appearance: cooperative, healthy appearing, comfortable and no acute distress Nutritional Appearance: average body habitus and obese Orientation: alert, awake and oriented x3 Head Head: normal to inspection Ears: hearing grossly normal bilaterally Nose: external nose normal Face and Sinus: face symmetric Mouth: oral mucosae normal Eyes General: appearance normal, both eyes and all related structures Eyelids: eyelids normal Neck Neck: no JVD and normal visual inspection Carotids: normal carotid upstroke Chest Chest inspection: normal inspection of the chest, normal respiratory effort and symmetric chest movement; negative cough Auscultation: Bilateral: Clear to Auscultation Cardio Rate: regular rate Rhythm: regular rhythm Heart sounds: S1 normal and S2 normal; negative rub, gallop or murmur GI GI: normal to inspection and obese Neuro General: alert, awake, oriented x3 and CN's II-XI intact bilaterally Skin Skin: no rashes or lesions noted Extremities Pulses: Normal: Right Posterior Tibial Pulse, Left Posterior Tibial Pulse, Right Radial Pulse, Left Radial Pulse Lower Extremity Edema: None: Bilateral Psych Psychological: normal affect Supplemental Info Stress test from August 2017 was positive for myocardial induced ischemia and showed ejection fraction of 71%. Heart catheterization from October 2016 showed an ejection fraction of 60%, left main coronary artery that is angiographically normal, LAD with proximal 95% stenosis followed by 25-50% stenosis, diagonal branch 1 with 25-50% stenosis, OM 2 with proximal 25% stenosis followed by mid 25-50% stenosis, OM 4 with 95% stenosis, RCA with 85% stenosis, and mild to moderate mitral valve regurgitation that was partially catheter/PVC induced. Heart catheterization from August 2017 showed left main is angiographically normal, proximal LAD with previous placed stent with 95% restenosis, mid LAD with 25% stenosis, distal LAD with mild luminal irregularities, diagonal 1 with 50% stenosis, OM1 with mild luminal irregularities, OM 2 with 25-50% stenosis, OM 3 with previous placed stent is patent, normal aortic valve function, mitral valve insufficiency grade 1, and angiographically normal aortic root. She underwent drug-eluting stent to 95% in-stent restenosis LAD. Echocardiogram from September 2016 showed an ejection fraction of 60%, mildly enlarged left atrium, trivial mitral valve insufficiency, trivial tricuspid valve insufficiency, mild focal aortic valve calcification, and bubble contrast study negative for right to left interatrial shunt. Assessment AND Plan 1. Atherosclerosis of [place] coronary artery of [place] heart without angina pectoris I25.10 LAD and OM PCI in October 2016:;LAD PCI in August 2017; Plan Patient's chest pain has been monitored in the past, but appears to be worsening associated with increase in secondary symptoms. Due to the worsening symptoms and history of in-stent restenosis, diabetes, and nicotine dependence she undergo a nuclear stress test to evaluate for any ischemic component. Further recommendation will be made based on results of this test. She will continue with current medications. We will tentatively schedule an appointment in 3 weeks to review test results and evaluate symptoms. Orders Orders: 2. S/P angioplasty with stent Z95.820 PCI to LAD 2016 Plan She has a history of stenting to her LAD in 2016 and again in August 2017 for 95% in-stent restenosis. Based on her ongoing symptoms this raises concern for ischemia. 3. Essential hypertension I10 Plan Patient's blood pressure is well-controlled today in the office. We will continue to monitor this. We will not make any medication regimen changes. Orders Orders: 4. Mixed hyperlipidemia E78.2 Plan She states this is managed by primary care physician. She will continue with current statin medication. 5. Cigarette nicotine dependence without complication F17.210 Plan She was reminded of the importance of smoking cessation related to cardiovascular and pulmonology care. She acknowledges understanding. We will continue to promote and support smoking cessation. Orders Orders: 6. Claudication I73.9 Plan She acknowledges bilateral lower extremity leg pain with ambulation that improves with rest. Given her ongoing smoking, history of diabetes, coronary artery disease, and hypertension, she will undergo a lower extremity arterial scan to evaluate for any decreased blood flow that may be causing her symptoms. She has had this checked last in 2012. Further recommendation will be made based on results of her test. Orders Orders: Plan Detail Other Orders Orders: Additional Comments Thank you for allowing us to participate in the patients plan of care, if you have any questions please do not hesitate to call. This note was generated using a voice recognition system and there may be incorrect words, spelling or punctuation that were not noted when reviewing the office note prior to saving. Follow Up 3 Weeks ([facility]) Coding Level of Care Code Off vis,est,level 4 Diagnoses Atherosclerosis of [place] coronary artery of [place] heart without angina pectoris I25.10 S/P angioplasty with stent Z95.820 Essential hypertension I10 Hypertension type: essential hypertension Mixed hyperlipidemia E78.2 Cigarette nicotine dependence without complication F17.210 Substance use status: uncomplicated Claudication I73.9 Coding Level of Care Code Off vis,est,level 4 Diagnoses Atherosclerosis of [place] coronary artery of [place] heart without angina pectoris I25.10 S/P angioplasty with stent Z95.820 Essential hypertension I10 Hypertension type: essential hypertension Mixed hyperlipidemia E78.2 Cigarette nicotine dependence without complication F17.210 Substance use status: uncomplicated Claudication I73.9 08/28/18 1308 <Electronically signed by Patricia MANDUJANO> Date Patricia MANDUJANO Cosigner Signature: Date (if applicable) CC: Feng Tejada MD COMP METABOLIC PANEL Collected: 08/14/2018 Status: F Source: [place] 12:06 PM [facility] REPOSITORY TYPE CODE TESTS RESULT OUT OF REFERENCE UNITS RANGE LAB TP 6.3-8.0 g/dL Protein, Total 6.6 LAB ALB 3.9-4.9 g/dL Albumin 4.4 LAB CA 8.5-10.2 mg/dL Calcium, Total 9.3 LAB TBIL 0.2-1.3 mg/dL Bilirubin, Total 0.3 LAB ALKP 34-123 U/L Alkaline Phosphatase 64 LAB AST 13-35 U/L AST Low 7 LAB GLU 74-99 mg/dL Glucose High 153 LAB BUN 7-21 mg/dL BUN 13 LAB CRET 0.58-0.96 mg/dL Creatinine 0.70 LAB NA 136-144 mmol/L Sodium 138 LAB K 3.7-5.1 mmol/L Potassium 4.2 LAB CL 97-105 mmol/L Chloride 103 LAB CO2 22-30 mmol/L CO2 27 LAB AGAP mmol/L Anion Gap 8 LAB ALT 7-38 U/L ALT Low 6 LAB GFRAA eGFR- >60 Amer. LAB GFRNAA . eGFR-All Other Races >60 Result Comment: eGFR (Estimated GFR) Units of measure: mL/min/1.73 meters squared eGFR is derived from the reexpressed MDRD Study equation using the following parameters: serum creatinine, age, gender and race. The creatinine assay has been calibrated to be traceable to IDMS. An eGFR <60 mL/min/1.73m2 for >3 months is consistent with chronic kidney disease. Refer to KDOQI guidelines for clinical interpretation. In patients with unstable renal function, e.g. those with acute kidney injury, the eGFR may not accurately reflect actual GFR. MAGNESIUM Collected: 08/14/2018 Status: F Source: [place] 12:06 PM [facility] REPOSITORY TYPE CODE TESTS RESULT OUT OF REFERENCE UNITS RANGE LAB MG 1.7-2.3 mg/dL Magnesium 1.7 LIPID PANEL, BASIC Collected: 08/14/2018 Status: F Source: [place] 12:06 PM [facility] REPOSITORY TYPE CODE TESTS RESULT OUT OF REFERENCE UNITS RANGE LAB CHOL <200 mg/dL Cholesterol High 220 Result Comment: <200 mg/dL, Desirable 200-239 mg/dL, Borderline high >239 mg/dL, High LAB TRIGLY <150 mg/dL Triglyceride High 384 Result Comment: <150 mg/dL, Normal 150-199 mg/dL, Borderline high 200-499 mg/dL, High >499 mg/dL, Very high LAB HDL >39 mg/dL HDL-Cholesterol 40 Result Comment: 40-59 mg/dL, Acceptable >59 mg/dL, High: Negative risk factor for coronary heart disease <40 mg/dL, Low: Positive risk factor for coronary heart disease LAB LDL <100 mg/dL LDL-Cholesterol High 103 Result Comment: <100 mg/dL, Optimal 100-129 mg/dL, Near optimal/above optimal 130-159 mg/dL, Borderline high 160-189 mg/dL, High >189 mg/dL, Very high Secondary prevention optimal LDL Cholesterol levels are recommended to be < 70 mg/dL LAB NONHDL <130 mg/dL Non HDL High Cholesterol 180 Result Comment: <130 mg/dL, Optimal 130-159 mg/dL, Near optimal/above optimal 160-189 mg/dL, Borderline high 190-219 mg/dL, High >219 mg/dL, Very high Secondary prevention optimal non HDL Cholesterol levels are recommended to be < 100 mg/dL LAB FT hrs Fasting Time 14 LAB VLDL <30 mg/dL High VLDL Cholesterol 77 LAB TCHDL <5.10 High TC:HDL Ratio 5.50 LAB LDLHDL <2.54 High LDL:HDL Ratio 2.58 Result Comment: Reference: 1. National Cholesterol Education Program ATP III Guideline At-A-Glance Quick Desk Reference: National Heart, Lung, and Blood [place]. National Institutes of Health. 2001: NIH Publication No. 01-3305. 2. An International Atherosclerosis Society position paper: global recommendations for the management of dyslipidemia: executive summary, Atherosclerosis. 2014: 232(2):410-413. Performed By: #### LIPB, HBA1C, VITD #### [facility] [address] [address] [place] [id number] HEMOGLOBIN A1C Collected: 08/14/2018 Status: F Source: [place] 12:06 PM [facility] REPOSITORY TYPE CODE TESTS RESULT OUT OF REFERENCE UNITS RANGE LAB HGBA1C 4.3-5.6 % High Hemoglobin A1c 6.9 LAB HBA0 mg/dL Est. Average Glucose 151 Result Comment: eAG: (Estimated average glucose) is a calculated value from HgbA1c and is medical billing representative of the average blood glucose level in the last 2-3 month period. Performed By: #### LIPB, HBA1C, VITD #### [facility] [address] [address] [address] [place] [id number] VITAMIN D 25 HYDROXY Collected: 08/14/2018 Status: F Source: [place] 12:06 PM [facility] REPOSITORY TYPE CODE TESTS RESULT OUT OF REFERENCE UNITS RANGE LAB VITD 31.0-80.0 ng/mL Low Vitamin D 25 20.9 Hydroxy Result Comment: Classification of 25 [place] Vitamin D status: Insufficiency/Moderate Deficiency: < or = 30 ng/mL Sufficiency/Optimal Levels: 31 to 80 ng/mL Toxicity: > 100 ng/mL Test performed by chemiluminescent immunoassay. Performed By: #### LIPB, HBA1C, VITD #### [facility] [address] [place], [place] [address] ALBUMIN/CREAT RATIO Collected: 08/14/2018 Status: F Source: [place] 12:06 PM [facility] REPOSITORY TYPE CODE TESTS RESULT OUT OF REFERENCE UNITS RANGE LAB UCRR 20-300 mg/dL 216.6 Creatinine,Ur ine,Ran LAB UALBR 0.0-23.0 mg/L <12.0 Albumin Urine Random LAB UALBCR 0-30 mg/g Not Albumin/Creat calculated Ratio Performed By: #### UACR #### [facility] [address] [place], [place] [address] PROGRESS Observed: 06/13/2018 Status: COMPLETED Source: [place] 12:16 PM [facility] REPOSITORY HNO ID: [id number] Author: Yenny Burt [facility] Service: (none) Author Type: (none) Type: Progress Notes Filed: 06/17/2018 8:27 AM Note Text: Please file UACR. Letters mailed to patient. PROGRESS Observed: 06/13/2018 Status: COMPLETED Source: [place] 12:15 PM [facility] REPOSITORY HNO ID: [id number] Author: Yenny Burt [facility] Service: (none) Author Type: (none) Type: Progress Notes Filed: 06/17/2018 8:27 AM Note Text: Upcoming appointment 11/11/18. Labs due prior to appointment. Please file UACR. I will send appointment/lab reminder with DM retinal reminder and release form. Appointment notes updated. Health Maintenance Due: DILATED RETINAL EXAM due on 12/21/2015 DIABETIC FOOT EXAM due on 10/16/2017 INFLUENZA(1) due on 06/14/2018 CNPTOUTREACH Observed: 06/13/2018 Status: COMPLETED Source: [place] 12:00 AM [facility] REPOSITORY Patient Outreach (INTMWS) LARRYCATY Godoy ([id number]) 1960 F CHT Date Time Provider Department 06/13/18 YENNY BURT ([facility] INTM[facility] During your visit today, we recorded the following information about you: Yenny Burt [facility] 06/17/2018 8:27 AM Signed Upcoming appointment 11/11/18. Labs due prior to appointment. Please file UACR. I will send appointment/lab reminder with DM retinal reminder and release form. Appointment notes updated. Health Maintenance Due: DILATED RETINAL EXAM due on 12/21/2015 DIABETIC FOOT EXAM due on 10/16/2017 INFLUENZA(1) due on 06/14/2018 Yenny Burt [facility] 06/17/2018 8:27 AM Signed Please file UACR. Letters mailed to patient. Allergies As of Date: 06/13/2018 Noted Allergy Reaction CARBAMAZEPINE 10/31/2015 6 - Diarrhea COLESTID (COLESTIPOL HCL) 05/13/2018 8 - GI Upset Comments: stomach cramping CRESTOR (ROSUVASTATIN CALCIUM) 01/24/2011 14 - Other: See Comments Comments: Myalgia, arthralgia. DEMEROL (MEPERIDINE (PF)) 11/21/2009 8 - GI Upset 11 - Vomiting DILTIAZEM 10/19/2015 2 - Rash 14 - Other: See Comments Comments: Chest pain, dark urine, rash. LEVAQUIN (LEVOFLOXACIN) 11/21/2009 8 - GI Upset 11 - Vomiting TETRACYCLINE 02/14/2006 8 - GI Upset TRAMADOL 04/28/2015 6 - Diarrhea Date Reviewed: 05/23/2018 Reviewed by: Jojo (Rn) JANELL Bueno - Fully Assessed Reason for Visit: PHMA/Care Gap Outreach [[id number]] Primary Visit Diagnosis:Well controlled type 2 diabetes mellitus (HCC) [E11.9] Order(s):ALBUMIN/CREAT RATIO RND UR [SQUACR] Order #: [id number] FUTURE Prescriptions as of 06/13/2018 Sig: PRAVASTATIN 80 MG TABLET Take 1 tablet by mouth once d* METOPROLOL TARTRATE 50 MG TAB* Take 1 tablet by mouth twice * CLOPIDOGREL 75 MG TABLET Take 1 tablet by mouth once d* CHOLECALCIFEROL (VITAMIN D3) * Take 1 capsule by mouth once * COLESEVELAM 625 MG TABLET Take 3 tablets by mouth twice* METFORMIN 1,000 MG TABLET Take 1 tablet by mouth twice * TRAZODONE 100 MG TABLET Take 1.5 tablets by mouth neeta* ALBUTEROL SULFATE HFA 90 MCG/* Inhale 2 Puffs as instructed * RANITIDINE 150 MG TABLET Take 1 tablet by mouth twice * PANTOPRAZOLE 40 MG TABLET,DEL* Take 1 tablet by mouth daily * ASPIRIN 81 MG TABLET,DELAYED * Take 1 tablet by mouth once d* BLOOD SUGAR DIAGNOSTIC STRIPS 1 Strip once daily. For diabe* LANCETS Test blood sugar(s) 1 times d* * MELATONIN 3 MG TABLET Take 3 mg by mouth daily at b* Problem List As Of Date 06/13/2018 Noted Resolved ALLERGIC RHINITIS NOS [J30.9] More... Diabetes mellitus [E11.9] INVALID FOR*05/12/2012 Hyperlipidemia with target LDL less than 70 [E7*INVALID FOR* More... GERD (Gastroesophageal Reflux Disease) [K21.9] INVALID FOR* Degenerative Arthritis of Knee [M17.10] INVALID FOR* Well controlled type 2 diabetes mellitus (HCC) *INVALID FOR* Pain in limb [M79.609] INVALID FOR*04/24/2017 Dermatophytosis of nail [B35.1] INVALID FOR*04/24/2017 Essential hypertension [I10] INVALID FOR* Diarrhea [R19.7] 04/24/2017 Benign neoplasm of colon [D12.6] INVALID FOR*04/24/2017 Chronic depression [F32.9] INVALID FOR*04/24/2017 Chronic insomnia [F51.04] INVALID FOR*04/24/2017 Knee pain [M25.569] INVALID FOR*11/26/2012 Continuous tobacco abuse [Z72.0] INVALID FOR* Osteoarthrosis, unspecified whether generalized*INVALID FOR*11/24/2012 Knee joint replacement by other means [Z96.659] INVALID FOR*04/24/2017 Statin intolerance [Z78.9] INVALID FOR* Neuropathic pain [M79.2] INVALID FOR* Abnormal mammogram [R92.8] INVALID FOR* Encounter for long-term (current) use of medica*INVALID FOR* More... Functional dyspepsia [K30] INVALID FOR* More... History of colonic polyps [Z86.010] INVALID FOR* More... Gastroesophageal reflux disease [K21.9] INVALID FOR* More... Obesity (BMI 30.0-34.9) [E66.9] Letter Text [facility] Feng Reeder MD [address] [place], [place] [address] Dear Caty Pack Your health care is very important to us. Our records indicate that you may be due for a diabetic eye exam. If you have had a diabetic eye exam within the last year, please have your records sent to us so that we may update your medical records. There is a medical records of release of information included in this letter. Please take the release to your eye doctor for future appointments to have your records forwarded to us. Important facts about diabetic eye exams Diabetic retinal exams should be done yearly for all patients with a diagnosis of diabetes. Risks such as diabetic retinopathy can be reduced with blood glucose control and early detection of potential problems. Diabetic retinopathy is damage to the small blood vessels in the retina that can lead to blindness Thank you, Feng Reeder MD Letter [facility] [address] [place] [id number] Office: [phone] Feng Reeder MD REQUEST FOR EYE EXAM FINDINGS November 02, 2016 Dear eye ostomy care nurse, Thank you for coordinating eye care for our mutual patient, Caty Pack (1960). Please fax this letter back to me with the most appropriate response selected below. Please allow the patient's signature to serve as permission to share your findings. Sincerely, Feng Reeder MD Patient Signature Date Date of eye exam: Findings Both Eyes Right Left No Retinopathy Detected Non Proliferative Retinopathy Mild Moderate Severe Proliferative Retinopathy Macular Edema Further testing and/or treatment indicated Comments: Patient is to return: Encounter Status:Closed by YENNY BURT CMA on 06/17/18 PROGRESS Observed: 05/23/2018 Status: COMPLETED Source: [place] [place] 2:35 PM [facility] [place] REPOSITORY HNO ID: [id number] Author: Marv Lyle V Service: (none) Author Type: Physician Type: Progress Notes Filed: 05/23/2018 2:41 PM Note Text: Caty Pack presents with pain in the left wrist. Symptoms began 4 months ago when she fell on outstretched arm, caught her fall with hand against a shed, jamming wrist and since then have been continuous. The pain is rated as 6 on a scale of 1-10. She has tried wrist splint, tylenol, ice with minimal improvement. PAST MEDICAL HISTORY Diagnosis Date - Allergic rhinitis, cause unspecified Allergic rhinitis - Arthritis - Asthma - Benign neoplasm of colon - Chronic depression 05/07/2011 - Chronic insomnia 05/07/2011 - Coronary artery disease - Dermatophytosis of nail 06/14/2010 - Diarrhea - DM (diabetes mellitus) ([facility]) - GERD (gastroesophageal reflux disease) 11/21/2009 - Heart attack (HCC) - Knee joint replacement by other means 12/15/2012 - Pneumonia 2008 Hosp 8 days [facility]. - Snoring - Syncope - Tobacco abuse - Unspecified essential hypertension PAST SURGICAL HISTORY Procedure Laterality Date - BREAST BIOPSY ~1999 x2. couple abnormal mammogram. NO acner. - BREAST BIOPSY W/STEREOTACTIC GUIDANCE Right 11-14-15 - COLONOSCOP W/ OR W/O [facility] SPEC 12/09/2017 Colonoscopy repeat 3 years - COLONOSCOPY 02/14/07 diverticulosis AND hyperpleastic polyp - COLONOSCOPY W/BX 02/15/11 - EGD W/O OR W/BRUSH/WASH 12/09/2017 EGD - PAST SURGICAL HISTORY OF 11/24/2012 left total knee arthroplasty - PAST SURGICAL HISTORY OF 2013 right shoulder - REMOVAL GALLBLADDER - REMOVAL OF TONSILS,<12 Y/O - REMOVE EAR CANAL LESION(S) left - STENTS (SPECIFY) cardiac stents X 3 - THYROID Removed half of thyroid - TOTAL ABDOM HYSTERECTOMY 2004 - TOTAL KNEE REPLACEMENT Bilateral 12/27/2014 [facility]. Current Outpatient Prescriptions on File Prior to Visit: metoprolol tartrate, short acting, (LOPRESSOR) 50 mg tablet Take 1 tablet by mouth twice daily. clopidogrel (PLAVIX) 75 mg tablet Take 1 tablet by mouth once daily. 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 colesevelam (WELCHOL) 625 mg tablet Take 3 tablets by mouth twice daily with meals. As directed for cholesterol and bile issues metFORMIN (GLUCOPHAGE) 1,000 mg tablet Take 1 tablet by mouth twice daily with meals. traZODone (DESYREL) 100 mg tablet Take 1.5 tablets by mouth daily at bedtime. albuterol HFA (PROVENTIL HFA, VENTOLIN HFA) 90 mcg/actuation inhaler Inhale 2 Puffs as instructed every 6 hours as needed for Wheezing/Shortness of Breath. ranitidine (ZANTAC) 150 mg tablet Take 1 tablet by mouth twice daily. As directed. pravastatin (PRAVACHOL) 40 mg tablet TAKE 1 TABLET ONCE DAILY pantoprazole DR (PROTONIX) 40 mg tablet Take 1 tablet by mouth daily before breakfast. Take on empty stomach, 1/2 hr before meal. aspirin, enteric coated (ECOTRIN LOW STRENGTH) 81 mg EC tablet Take 1 tablet by mouth once daily. blood sugar diagnostic (ACCU-CHEK SMARTVIEW TEST STRIP) test strip 1 Strip once daily. For diabetes mellitus no insulin. Lancets (ACCU-CHEK SOFTCLIX LANCETS) lancets Test blood sugar(s) 1 times daily. Dx: 250.00. Insulin: No melatonin 3 mg ORAL Tab Take 3 mg by mouth daily at bedtime. No current facility-administered medications on file prior to visit. 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 (11/06/17) Alcohol use: No Comment: OCC Drug use: No Sexual activity: Yes Social History Narrative Not working any longer. Disability from arthritis since ~2009. Physical Exam Findings: General exam: Normal, Extremeties left wrist tenderness over ulnar styloid and TFCC region with direct palpation. Mild soft tissue swelling is noted. Pain with ulnar deviation of wrist. No sensorineural deficits. X-ray: no acute abnormalities noted Assessment: left wrist pain, ulnar aspect, concerning for TFCC injury Plan: 1. Patient Instructions: elevate , Limit activities and Wear wrist splint for 1 additional week 2. PROCEDURE: INJECTION The risk, benefits and alternatives of injection and no injection therapy were discussed. Personnel were discussed and the patient consented for an injection. The patient has been identified by name and birthdate. The injection site was identified, marked and prepped with a alcohol swab. Time out completed. The TFCC region of left wrist was injected with a 27 gauge needle with 1/2cc Celestone (3 mg), and 1/2 cc xylocaine plain 1%. The injection site was then dressed with a bandaid. The patient tolerated the injection well. The patient was instructed to call the office if any adverse local effects occurred or any if any questions or concerns arise. Marv Lyle DO CNOV Observed: 05/23/2018 Status: COMPLETED Source: [place] 2:20 PM [facility] REPOSITORY Office Visit (UC) LARRYCATY Godoy ([id number]) 1960 [facility] Date Time Provider Department 05/23/18 2:20 PM MARV LYLE During your visit today, we recorded the following information about you: Jojo Bueno, RN, RN 05/23/2018 2:41 PM Signed AMB ROOMING INTAKE FLOWSHEET DATA Risk Screening Do you have concerns about personal safety or safety in the home?: No Pain Pain Score: 6/10 Pain Location: Wrist-Left Description: Sharp Duration Amount of Time: 4 Duration Units: Months Frequency: Continuous Intervention: Cold, Heat, Medication, Splinting (tylenol ) Patient presents with: New Patient: left wrist, ref- L. basilio Tejada- 03/01/18 patient is here for left wrist pain, she is wearing a brace. Patient states she has had pain since January and has tried tylenol. Patient is right handed. JANELL Richard, DO 05/23/2018 2:41 PM Signed Caty Pack presents with pain in the left wrist. Symptoms began 4 months ago when she fell on outstretched arm, caught her fall with hand against a shed, jamming wrist and since then have been continuous. The pain is rated as 6 on a scale of 1-10. She has tried wrist splint, tylenol, ice with minimal improvement. PAST MEDICAL HISTORY Diagnosis Date - Allergic rhinitis, cause unspecified Allergic rhinitis - Arthritis - Asthma - Benign neoplasm of colon - Chronic depression 05/07/2011 - Chronic insomnia 05/07/2011 - Coronary artery disease - Dermatophytosis of nail 06/14/2010 - Diarrhea - DM (diabetes mellitus) (HCC) - GERD (gastroesophageal reflux disease) 11/21/2009 - Heart attack (HCC) - Knee joint replacement by other means 12/15/2012 - Pneumonia 2009 Hosp 8 days [facility]. - Snoring - Syncope - Tobacco abuse - Unspecified essential hypertension PAST SURGICAL HISTORY Procedure Laterality Date - BREAST BIOPSY ~1999 x2. couple abnormal mammogram. NO acner. - BREAST BIOPSY W/STEREOTACTIC GUIDANCE Right 11-14-15 - COLONOSCOP W/ OR W/O [facility] SPEC 12/09/2017 Colonoscopy repeat 3 years - COLONOSCOPY 02/14/07 diverticulosis AND hyperpleastic polyp - COLONOSCOPY W/BX 02/15/11 - EGD W/O OR W/BRUSH/WASH 12/09/2017 EGD - PAST SURGICAL HISTORY OF 11/24/2012 left total knee arthroplasty - PAST SURGICAL HISTORY OF 2013 right shoulder - REMOVAL GALLBLADDER - REMOVAL OF TONSILS,<12 Y/O - REMOVE EAR CANAL LESION(S) left - STENTS (SPECIFY) cardiac stents X 3 - THYROID Removed half of thyroid - TOTAL ABDOM HYSTERECTOMY 2004 - TOTAL KNEE REPLACEMENT Bilateral 12/27/2014 Dr [facility]. Current Outpatient Prescriptions on File Prior to Visit: metoprolol tartrate, short acting, (LOPRESSOR) 50 mg tablet Take 1 tablet by mouth twice daily. clopidogrel (PLAVIX) 75 mg tablet Take 1 tablet by mouth once daily. 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 colesevelam (WELCHOL) 625 mg tablet Take 3 tablets by mouth twice daily with meals. As directed for cholesterol and bile issues metFORMIN (GLUCOPHAGE) 1,000 mg tablet Take 1 tablet by mouth twice daily with meals. traZODone (DESYREL) 100 mg tablet Take 1.5 tablets by mouth daily at bedtime. albuterol HFA (PROVENTIL HFA, VENTOLIN HFA) 90 mcg/actuation inhaler Inhale 2 Puffs as instructed every 6 hours as needed for Wheezing/Shortness of Breath. ranitidine (ZANTAC) 150 mg tablet Take 1 tablet by mouth twice daily. As directed. pravastatin (PRAVACHOL) 40 mg tablet TAKE 1 TABLET ONCE DAILY pantoprazole DR (PROTONIX) 40 mg tablet Take 1 tablet by mouth daily before breakfast. Take on empty stomach, 1/2 hr before meal. aspirin, enteric coated (ECOTRIN LOW STRENGTH) 81 mg EC tablet Take 1 tablet by mouth once daily. blood sugar diagnostic (ACCU-CHEK SMARTVIEW TEST STRIP) test strip 1 Strip once daily. For diabetes mellitus no insulin. Lancets (ACCU-CHEK SOFTCLIX LANCETS) lancets Test blood sugar(s) 1 times daily. Dx: 250.00. Insulin: No melatonin 3 mg ORAL Tab Take 3 mg by mouth daily at bedtime. No current facility-administered medications on file prior to visit. 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 (11/06/17) Alcohol use: No Comment: OCC Drug use: No Sexual activity: Yes Social History Narrative Not working any longer. Disability from arthritis since ~2009. Physical Exam Findings: General exam: Normal, Extremeties left wrist tenderness over ulnar styloid and TFCC region with direct palpation. Mild soft tissue swelling is noted. Pain with ulnar deviation of wrist. No sensorineural deficits. X-ray: no acute abnormalities noted Assessment: left wrist pain, ulnar aspect, concerning for TFCC injury Plan: 1. Patient Instructions: elevate , Limit activities and Wear wrist splint for 1 additional week 2. PROCEDURE: INJECTION The risk, benefits and alternatives of injection and no injection therapy were discussed. Personnel were discussed and the patient consented for an injection. The patient has been identified by name and birthdate. The injection site was identified, marked and prepped with a alcohol swab. Time out completed. The TFCC region of left wrist was injected with a 27 gauge needle with 1/2cc Celestone (3 mg), and 1/2 cc xylocaine plain 1%. The injection site was then dressed with a bandaid. The patient tolerated the injection well. The patient was instructed to call the office if any adverse local effects occurred or any if any questions or concerns arise. Marv Lyle DO Referring Provider: FENG TEJADA [[id number]] Allergies As of Date: 05/23/2018 Noted Allergy Reaction CARBAMAZEPINE 10/31/2015 6 - Diarrhea COLESTID (COLESTIPOL HCL) 05/13/2018 8 - GI Upset Comments: stomach cramping CRESTOR (ROSUVASTATIN CALCIUM) 01/24/2011 14 - Other: See Comments Comments: Myalgia, arthralgia. DEMEROL (MEPERIDINE (PF)) 11/21/2009 8 - GI Upset 11 - Vomiting DILTIAZEM 10/19/2015 2 - Rash 14 - Other: See Comments Comments: Chest pain, dark urine, rash. LEVAQUIN (LEVOFLOXACIN) 11/21/2009 8 - GI Upset 11 - Vomiting TETRACYCLINE 02/14/2006 8 - GI Upset TRAMADOL 04/28/2015 6 - Diarrhea Date Reviewed: 05/23/2018 Reviewed by: Jojo Bergeron) JANELL Bueno - Fully Assessed Reason for Visit: New Patient [[id number]] Cmt: left wrist, ref- L. basilio Tejada- 03/01/18 Primary Visit Diagnosis:Left wrist sprain, subsequent encounter [S63.502D] Order(s):[] betamethasone acetate-betamethasone sodium phosphate 3 mg injection (CELESTONE)Disp: Rfl: Prescriptions as of 05/23/2018 Sig: METOPROLOL TARTRATE 50 MG TAB* Take 1 tablet by mouth twice * CLOPIDOGREL 75 MG TABLET Take 1 tablet by mouth once d* CHOLECALCIFEROL (VITAMIN D3) * Take 1 capsule by mouth once * COLESEVELAM 625 MG TABLET Take 3 tablets by mouth twice* METFORMIN 1,000 MG TABLET Take 1 tablet by mouth twice * TRAZODONE 100 MG TABLET Take 1.5 tablets by mouth neeta* ALBUTEROL SULFATE HFA 90 MCG/* Inhale 2 Puffs as instructed * RANITIDINE 150 MG TABLET Take 1 tablet by mouth twice * PRAVASTATIN 40 MG TABLET TAKE 1 TABLET ONCE DAILY PANTOPRAZOLE 40 MG TABLET,DEL* Take 1 tablet by mouth daily * ASPIRIN 81 MG TABLET,DELAYED * Take 1 tablet by mouth once d* BLOOD SUGAR DIAGNOSTIC STRIPS 1 Strip once daily. For diabe* LANCETS Test blood sugar(s) 1 times d* * MELATONIN 3 MG TABLET Take 3 mg by mouth daily at b* Problem List As Of Date 05/23/2018 Noted Resolved ALLERGIC RHINITIS NOS [J30.9] More... Diabetes mellitus [E11.9] INVALID FOR*05/12/2012 Hyperlipidemia with target LDL less than 70 [E7*INVALID FOR* More... GERD (Gastroesophageal Reflux Disease) [K21.9] INVALID FOR* Degenerative Arthritis of Knee [M17.10] INVALID FOR* Well controlled type 2 diabetes mellitus (HCC) *INVALID FOR* Pain in limb [M79.609] INVALID FOR*04/24/2017 Dermatophytosis of nail [B35.1] INVALID FOR*04/24/2017 Essential hypertension [I10] INVALID FOR* Diarrhea [R19.7] 04/24/2017 Benign neoplasm of colon [D12.6] INVALID FOR*04/24/2017 Chronic depression [F32.9] INVALID FOR*04/24/2017 Chronic insomnia [F51.04] INVALID FOR*04/24/2017 Knee pain [M25.569] INVALID FOR*11/26/2012 Continuous tobacco abuse [Z72.0] INVALID FOR* Osteoarthrosis, unspecified whether generalized*INVALID FOR*11/24/2012 Knee joint replacement by other means [Z96.659] INVALID FOR*04/24/2017 Statin intolerance [Z78.9] INVALID FOR* Neuropathic pain [M79.2] INVALID FOR* Abnormal mammogram [R92.8] INVALID FOR* Encounter for long-term (current) use of medica*INVALID FOR* More... Functional dyspepsia [K30] INVALID FOR* More... History of colonic polyps [Z86.010] INVALID FOR* More... Gastroesophageal reflux disease [K21.9] INVALID FOR* More... Prescriptions ordered this encounter Disp Refills Start End BETAMETHASONE ACETATE AND SODIUM GARRY* 05/23/2018 05/23/2018 Route: OTHER Encounter Status:Closed by MARV LYLE DO, V on 05/23/18 PROGRESS Observed: 05/23/2018 Status: COMPLETED Source: [place] 2:15 PM [facility] REPOSITORY HNO ID: [id number] Author: Jojo (Rn) JANELL Bueno Service: (none) Author Type: Registered Nurse Type: Progress Notes Filed: 05/23/2018 2:41 PM Note Text: AMB ROOMING INTAKE FLOWSHEET DATA Risk Screening Do you have concerns about personal safety or safety in the home?: No Pain Pain Score: 6/10 Pain Location: Wrist-Left Description: Sharp Duration Amount of Time: 4 Duration Units: Months Frequency: Continuous Intervention: Cold, Heat, Medication, Splinting (tylenol ) Patient presents with: New Patient: left wrist, ref- Alessandro Tejada, kenay- 03/01/18 patient is here for left wrist pain, she is wearing a brace. Patient states she has had pain since January and has tried tylenol. Patient is right handed. Jojo Bueno RN PROGRESS Observed: 05/13/2018 Status: COMPLETED Source: [place] 2:42 PM [facility] REPOSITORY HNO ID: [id number] Author: Feng Tejada Service: (none) Author Type: Physician Type: Progress Notes Filed: 06/03/2018 10:28 PM Note Text: Patient presents with: 4 month f/u SUBJECTIVE: Caty Pack is a 57 year old year old lady here today for 4 month follow up appointment for review of medical conditions. Still with pain in ulnar side of wrist--swelling noted and very tender. Hurts to move at wrist. Wears splint during the day. Ice had not helped. Past 3 weeks with yellow diarrhea that wakes her up at night. Diet without effect. Even with not eating yesterday, still with diarrhea last night. Throat hurting again as with reflux. Nexium had been more effective than current protonix PAST MEDICAL HISTORY Diagnosis Date - Allergic rhinitis, cause unspecified Allergic rhinitis - Arthritis - Asthma - Benign neoplasm of colon - Chronic depression 05/07/2011 - Chronic insomnia 05/07/2011 - Coronary artery disease - Dermatophytosis of nail 06/14/2010 - Diarrhea - DM (diabetes mellitus) (HCC) - GERD (gastroesophageal reflux disease) 11/21/2009 - Heart attack (HCC) - Knee joint replacement by other means 12/15/2012 - Pneumonia 2009 Hosp [facility] days [facility] [place]. - Snoring - Syncope - Tobacco abuse - Unspecified essential hypertension PAST SURGICAL HISTORY Procedure Laterality Date - BREAST BIOPSY ~1999 x2. couple abnormal mammogram. NO acner. - BREAST BIOPSY W/STEREOTACTIC GUIDANCE Right 11-14-15 - COLONOSCOP W/ OR W/O [facility] SPEC 12/09/2017 Colonoscopy repeat 3 years - COLONOSCOPY 02/14/07 diverticulosis AND hyperpleastic polyp - COLONOSCOPY W/BX 02/15/11 - EGD W/O OR W/BRUSH/WASH 12/09/2017 EGD - PAST SURGICAL HISTORY OF 11/24/2012 left total knee arthroplasty - PAST SURGICAL HISTORY OF 2013 right shoulder - REMOVAL GALLBLADDER - REMOVAL OF TONSILS,<12 Y/O - REMOVE EAR CANAL LESION(S) left - STENTS (SPECIFY) cardiac stents X 3 - THYROID Removed half of thyroid - TOTAL ABDOM HYSTERECTOMY 2004 - TOTAL KNEE REPLACEMENT Bilateral 12/27/2014 Dr [facility]. Current Outpatient Prescriptions: clopidogrel (PLAVIX) 75 mg tablet Take 1 tablet by mouth once daily. 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 metFORMIN (GLUCOPHAGE) 1,000 mg tablet Take 1 tablet by mouth twice daily with meals. traZODone (DESYREL) 100 mg tablet Take 1.5 tablets by mouth daily at bedtime. albuterol HFA (PROVENTIL HFA, VENTOLIN HFA) 90 mcg/actuation inhaler Inhale 2 Puffs as instructed every 6 hours as needed for Wheezing/Shortness of Breath. ranitidine (ZANTAC) 150 mg tablet Take 1 tablet by mouth twice daily. As directed. pravastatin (PRAVACHOL) 40 mg tablet TAKE 1 TABLET ONCE DAILY pantoprazole DR (PROTONIX) 40 mg tablet Take 1 tablet by mouth daily before breakfast. Take on empty stomach, 1/2 hr before meal. aspirin, enteric coated (ECOTRIN LOW STRENGTH) 81 mg EC tablet Take 1 tablet by mouth once daily. blood sugar diagnostic (ACCU-CHEK SMARTVIEW TEST STRIP) test strip 1 Strip once daily. For diabetes mellitus no insulin. Lancets (ACCU-CHEK SOFTCLIX LANCETS) lancets Test blood sugar(s) 1 times daily. Dx: 250.00. Insulin: No metoprolol tartrate, short acting, (LOPRESSOR) 50 mg tablet Take 1 tablet by mouth twice daily. melatonin 3 mg ORAL Tab Take 3 mg by mouth daily at bedtime. No current facility-administered medications for this visit. OBJECTIVE: BP 114/68 (BP Site: Left Arm, BP Position: Sitting, BP Cuff Size: Large Adult) Pulse (!) 58 Resp 16 Wt 86.9 kg (191 lb 9.6 oz) LMP 03/29/2006 SpO2 98% BMI 32.38 kg/m? Patient is alert, oriented times 3, no apparent distress, affect is bright, reactive. Last 5 Encounter BP Readings: Date: BP: 05/13/2018 114/68 03/01/2018 110/70 12/27/2017 100/58 12/19/2017 111/73 11/06/2017 145/69 Last 5 Encounter Wt Readings: Date: Wt: 05/13/2018 86.9 kg (191 lb 9.6 oz) 03/01/2018 88.5 kg (195 lb 3.2 oz) 12/27/2017 85.7 kg (189 lb) 12/19/2017 85.5 kg (188 lb 9.6 oz) 11/06/2017 85.9 kg (189 lb 6 oz) Heart: Regular rate, rhythm, no murmurs, gallops, rubs. Lungs: Clear to auscultation, bilaterally, breathing non labored. Ext: No cyanosis, clubbing, or edema. Mild swelling in ulnar side of wrist; very tender. No redness or warmth. Component Latest Ref Rng AND Units 10/09/2017 10/31/2017 10/31/2017 12/16/2017 03/19/2018 03/19/2018 11:04 AM 11:04 AM 12:39 PM 12:39 PM Glucose 74 - 99 mg/dL 153 (H) 134 (H) BUN 7 - 21 mg/dL 11 11 Creatinine 0.58 - 0.96 mg/dL 0.77 0.70 Sodium 136 - 144 mmol/L 142 139 Potassium 3.7 - 5.1 mmol/L 4.2 4.3 Chloride 97 - 105 mmol/L 102 100 CO2 22 - 30 mmol/L 26 27 Anion Gap 9 - 18 mmol/L 14 12 Calcium 8.5 - 10.2 mg/dL 8.8 9.2 eGFR- >60 >60 eGFR-All Other Races . >60 >60 WBC 3.70 - 11.00 k/uL 6.24 RBC 3.90 - 5.20 m/uL 4.30 Hemoglobin 11.5 - 15.5 g/dL 11.6 Hematocrit 36.0 - 46.0 % 38.1 MCV 80.0 - 100.0 fL 88.6 MCH 26.0 - 34.0 pG 27.0 MCHC 30.5 - 36.0 g/dL 30.4 (L) RDW-CV 11.5 - 15.0 % 14.4 Platelet Count 150 - 400 k/uL 197 MPV 9.0 - 12.7 fL 10.5 Absolute nRBC <0.01 k/uL <0.01 Cholesterol, Total <200 mg/dL 202 (H) 304 (H) Triglyceride <150 mg/dL 419 (H) 404 (H) HDL Cholesterol >39 mg/dL 37 (L) 40 LDL Cholesterol <100 mg/dL Unable to calculate due to increased Triglycerides. See LDL-Chol, Direct. Unable to calculate due to increased Triglycerides. See LDL-Chol, Direct. Non HDL Cholesterol <130 mg/dL 165 (H) 264 (H) Fasting Time hrs 14 14 VLDL Cholesterol <30 mg/dL Unable to calculate due to increased Triglycerides. See LDL-Chol, Direct. 54 (H) Unable to calculate due to increased Triglycerides. See LDL-Chol, Direct. 66 (H) TC:HDL Ratio <5.10 5.46 (H) 7.60 (H) LDL:HDL Ratio <2.54 Unable to calculate due to elevated Triglycerides. Unable to calculate due to elevated Triglycerides. Creatinine, Ur Random (UCRR) 20 - 300 mg/dL 95.2 Albumin, Urine Random 0.0 - 23.0 mg/L <12.0 Albumin/Creat Ratio 0 - 30 mg/g Not calculated Hemoglobin A1C 4.3 - 5.6 % 6.6 (H) 7.1 (H) Estimated Average Glucose mg/dL 143 157 LDL Cholesterol, Direct <100 mg/dL 111 (H) 198 (H) Vitamin D 25 Hydroxy 31.0 - 80.0 ng/mL 9.5 (L) 8.8 (L) 26.8 (L) ASSESSMENT AND PLAN: Encounter Diagnosis ICD-10-CM 1. Wrist pain, chronic, left M25.532 CONSULT TO ORTHOPAEDICS G89.29 No better after seen in in February 2. Well controlled type 2 diabetes mellitus (HCC) E11.9 COMP METABOLIC PANEL HGB A1C 3. Wrist swelling, left M25.432 CONSULT TO ORTHOPAEDICS ulnar side of wrist; Xrays were unremarkable 4. Essential hypertension I10 5. Hyperlipidemia with target LDL less than 70 E78.5 LIPID PANEL BASIC 6. Vitamin D deficiency E55.9 cholecalciferol, Vitamin D3, (VITAMIN D3) 50,000 unit cap capsule VITAMIN D 25 HYDROXY 7. Bile salt-induced diarrhea K90.89 colesevelam (WELCHOL) 625 mg tablet 8. Gastroesophageal reflux disease without esophagitis K21.9 9. Encounter for long-term current use of medication Z79.899 COMP METABOLIC PANEL MAGNESIUM BLD 10. Obesity (BMI 30.0-34.9) E66.9 Had eye check up last year--due this year. Referral as above for ortho eval for wrist pain. Continue current meds as noted above. Further evaluation and treatment as indicated. Above issues addressed with patient. Patient involved in shared decision making for management of her medical issues. History and medications reviewed. Epic updated as needed Refills taken care of and meds adjusted as indicated after reviewed history, exam and labs. Health Maintenance reviewed. Updated record and/or ordered tests as recorded. Encouraged on efforts at healthy diet and regular exercise and adequate sleep. Needs to keep working on diet and exercise with lifestyle changes for effective weight loss as well as control of sugars, BP and lipids. The majority of the visit was spent counseling and/or coordinating care for the patient. Eays-of-iftu time was at least 25 minutes. Feng Tejada MD CNOV Observed: 05/13/2018 Status: COMPLETED Source: [place] 2:40 PM [facility] REPOSITORY Office Visit ([facility]) CATY PACK ([id number]) 1960 F [facility] Date Time Provider Department 05/13/18 2:40 PM FENG TEJADA INTM[facility] During your visit today, we recorded the following information about you: Pulse Respiration Blood pressure Weight 58/minute 16/minute 114/68 86.9 kg Feng Tejada MD 06/03/2018 10:28 PM Signed Patient presents with: 4 month f/u SUBJECTIVE: Caty Pack is a 57 year old year old lady here today for 4 month follow up appointment for review of medical conditions. Still with pain in ulnar side of wrist--swelling noted and very tender. Hurts to move at wrist. Wears splint during the day. Ice had not helped. Past 3 weeks with yellow diarrhea that wakes her up at night. Diet without effect. Even with not eating yesterday, still with diarrhea last night. Throat hurting again as with reflux. Nexium had been more effective than current protonix PAST MEDICAL HISTORY Diagnosis Date - Allergic rhinitis, cause unspecified Allergic rhinitis - Arthritis - Asthma - Benign neoplasm of colon - Chronic depression 05/07/2011 - Chronic insomnia 05/07/2011 - Coronary artery disease - Dermatophytosis of nail 06/14/2010 - Diarrhea - DM (diabetes mellitus) (HCC) - GERD (gastroesophageal reflux disease) 11/21/2009 - Heart attack (HCC) - Knee joint replacement by other means 12/15/2012 - Pneumonia 2008 Hosp 8 days [facility]. - Snoring - Syncope - Tobacco abuse - Unspecified essential hypertension PAST SURGICAL HISTORY Procedure Laterality Date - BREAST BIOPSY ~1999 x2. couple abnormal mammogram. NO acner. - BREAST BIOPSY W/STEREOTACTIC GUIDANCE Right 2--16 - COLONOSCOP W/ OR W/O BRSH SPEC 12/09/2017 Colonoscopy repeat 3 years - COLONOSCOPY 02/14/07 diverticulosis AND hyperpleastic polyp - COLONOSCOPY W/BX 02/15/11 - EGD W/O OR W/BRUSH/WASH 12/09/2017 EGD - PAST SURGICAL HISTORY OF 11/24/2012 left total knee arthroplasty - PAST SURGICAL HISTORY OF 2013 right shoulder - REMOVAL GALLBLADDER - REMOVAL OF TONSILS,<12 Y/O - REMOVE EAR CANAL LESION(S) left - STENTS (SPECIFY) cardiac stents X 3 - THYROID Removed half of thyroid - TOTAL ABDOM HYSTERECTOMY 2004 - TOTAL KNEE REPLACEMENT Bilateral 12/27/2014 Dr Segura [facility]. Current Outpatient Prescriptions: clopidogrel (PLAVIX) 75 mg tablet Take 1 tablet by mouth once daily. 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 metFORMIN (GLUCOPHAGE) 1,000 mg tablet Take 1 tablet by mouth twice daily with meals. traZODone (DESYREL) 100 mg tablet Take 1.5 tablets by mouth daily at bedtime. albuterol HFA (PROVENTIL HFA, VENTOLIN HFA) 90 mcg/actuation inhaler Inhale 2 Puffs as instructed every 6 hours as needed for Wheezing/Shortness of Breath. ranitidine (ZANTAC) 150 mg tablet Take 1 tablet by mouth twice daily. As directed. pravastatin (PRAVACHOL) 40 mg tablet TAKE 1 TABLET ONCE DAILY pantoprazole DR (PROTONIX) 40 mg tablet Take 1 tablet by mouth daily before breakfast. Take on empty stomach, 1/2 hr before meal. aspirin, enteric coated (ECOTRIN LOW STRENGTH) 81 mg EC tablet Take 1 tablet by mouth once daily. blood sugar diagnostic (ACCU-CHEK SMARTVIEW TEST STRIP) test strip 1 Strip once daily. For diabetes mellitus no insulin. Lancets (ACCU-CHEK SOFTCLIX LANCETS) lancets Test blood sugar(s) 1 times daily. Dx: 250.00. Insulin: No metoprolol tartrate, short acting, (LOPRESSOR) 50 mg tablet Take 1 tablet by mouth twice daily. melatonin 3 mg ORAL Tab Take 3 mg by mouth daily at bedtime. No current facility-administered medications for this visit. OBJECTIVE: BP 114/68 (BP Site: Left Arm, BP Position: Sitting, BP Cuff Size: Large Adult) Pulse (!) 58 Resp 16 Wt 86.9 kg (191 lb 9.6 oz) LMP 03/29/2006 SpO2 98% BMI 32.38 kg/m? Patient is alert, oriented times 3, no apparent distress, affect is bright, reactive. Last 5 Encounter BP Readings: Date: BP: 05/13/2018 114/68 03/01/2018 110/70 12/27/2017 100/58 12/19/2017 111/73 11/06/2017 145/69 Last 5 Encounter Wt Readings: Date: Wt: 05/13/2018 86.9 kg (191 lb 9.6 oz) 03/01/2018 88.5 kg (195 lb 3.2 oz) 12/27/2017 85.7 kg (189 lb) 12/19/2017 85.5 kg (188 lb 9.6 oz) 11/06/2017 85.9 kg (189 lb 6 oz) Heart: Regular rate, rhythm, no murmurs, gallops, rubs. Lungs: Clear to auscultation, bilaterally, breathing non labored. Ext: No cyanosis, clubbing, or edema. Mild swelling in ulnar side of wrist; very tender. No redness or warmth. Component Latest Ref Rng AND Units 10/09/2017 10/31/2017 10/31/2017 12/16/2017 03/19/2018 03/19/2018 11:04 AM 11:04 AM 12:39 PM 12:39 PM Glucose 74 - 99 mg/dL 153 (H) 134 (H) BUN 7 - 21 mg/dL 11 11 Creatinine 0.58 - 0.96 mg/dL 0.77 0.70 Sodium 136 - 144 mmol/L 142 139 Potassium 3.7 - 5.1 mmol/L 4.2 4.3 Chloride 97 - 105 mmol/L 102 100 CO2 22 - 30 mmol/L 26 27 Anion Gap 9 - 18 mmol/L 14 12 Calcium 8.5 - 10.2 mg/dL 8.8 9.2 eGFR- >60 >60 eGFR-All Other Races . >60 >60 WBC 3.70 - 11.00 k/uL 6.24 RBC 3.90 - 5.20 m/uL 4.30 Hemoglobin 11.5 - 15.5 g/dL 11.6 Hematocrit 36.0 - 46.0 % 38.1 MCV 80.0 - 100.0 fL 88.6 MCH 26.0 - 34.0 pG 27.0 MCHC 30.5 - 36.0 g/dL 30.4 (L) RDW-CV 11.5 - 15.0 % 14.4 Platelet Count 150 - 400 k/uL 197 MPV 9.0 - 12.7 fL 10.5 Absolute nRBC <0.01 k/uL <0.01 Cholesterol, Total <200 mg/dL 202 (H) 304 (H) Triglyceride <150 mg/dL 419 (H) 404 (H) HDL Cholesterol >39 mg/dL 37 (L) 40 LDL Cholesterol <100 mg/dL Unable to calculate due to increased Triglycerides. See LDL-Chol, Direct. Unable to calculate due to increased Triglycerides. See LDL-Chol, Direct. Non HDL Cholesterol <130 mg/dL 165 (H) 264 (H) Fasting Time hrs 14 14 VLDL Cholesterol <30 mg/dL Unable to calculate due to increased Triglycerides. See LDL-Chol, Direct. 54 (H) Unable to calculate due to increased Triglycerides. See LDL-Chol, Direct. 66 (H) TC:HDL Ratio <5.10 5.46 (H) 7.60 (H) LDL:HDL Ratio <2.54 Unable to calculate due to elevated Triglycerides. Unable to calculate due to elevated Triglycerides. Creatinine, Ur Random (UCRR) 20 - 300 mg/dL 95.2 Albumin, Urine Random 0.0 - 23.0 mg/L <12.0 Albumin/Creat Ratio 0 - 30 mg/g Not calculated Hemoglobin A1C 4.3 - 5.6 % 6.6 (H) 7.1 (H) Estimated Average Glucose mg/dL 143 157 LDL Cholesterol, Direct <100 mg/dL 111 (H) 198 (H) Vitamin D 25 Hydroxy 31.0 - 80.0 ng/mL 9.5 (L) 8.8 (L) 26.8 (L) ASSESSMENT AND PLAN: Encounter Diagnosis ICD-10-CM 1. Wrist pain, chronic, left M25.532 CONSULT TO ORTHOPAEDICS G89.29 No better after seen in in February 2. Well controlled type 2 diabetes mellitus (HCC) E11.9 COMP METABOLIC PANEL HGB A1C 3. Wrist swelling, left M25.432 CONSULT TO ORTHOPAEDICS ulnar side of wrist; Xrays were unremarkable 4. Essential hypertension I10 5. Hyperlipidemia with target LDL less than 70 E78.5 LIPID PANEL BASIC 6. Vitamin D deficiency E55.9 cholecalciferol, Vitamin D3, (VITAMIN D3) 50,000 unit cap capsule VITAMIN D 25 HYDROXY 7. Bile salt-induced diarrhea K90.89 colesevelam (WELCHOL) 625 mg tablet 8. Gastroesophageal reflux disease without esophagitis K21.9 9. Encounter for long-term current use of medication Z79.899 COMP METABOLIC PANEL MAGNESIUM BLD 10. Obesity (BMI 30.0-34.9) E66.9 Had eye check up last year--due this year. Referral as above for ortho eval for wrist pain. Continue current meds as noted above. Further evaluation and treatment as indicated. Above issues addressed with patient. Patient involved in shared decision making for management of her medical issues. History and medications reviewed. Epic updated as needed Refills taken care of and meds adjusted as indicated after reviewed history, exam and labs. Health Maintenance reviewed. Updated record and/or ordered tests as recorded. Encouraged on efforts at healthy diet and regular exercise and adequate sleep. Needs to keep working on diet and exercise with lifestyle changes for effective weight loss as well as control of sugars, BP and lipids. The majority of the visit was spent counseling and/or coordinating care for the patient. Ufpl-hw-toof time was at least 25 minutes. MD Feng Bonds MD 05/13/2018 3:03 PM Signed Try taking pravastatin 80 mg daily (2 pills once daily)--if tolerated, let me know so can make next prescription for 80 mg. If not, let me know so can send for 40 mg. Referring Provider: FENG TEJADA [[id number]] Allergies As of Date: 05/13/2018 Noted Allergy Reaction CARBAMAZEPINE 10/31/2015 6 - Diarrhea COLESTID (COLESTIPOL HCL) 05/13/2018 8 - GI Upset Comments: stomach cramping CRESTOR (ROSUVASTATIN CALCIUM) 01/24/2011 14 - Other: See Comments Comments: Myalgia, arthralgia. DEMEROL (MEPERIDINE (PF)) 11/21/2009 8 - GI Upset 11 - Vomiting DILTIAZEM 10/19/2015 2 - Rash 14 - Other: See Comments Comments: Chest pain, dark urine, rash. LEVAQUIN (LEVOFLOXACIN) 11/21/2009 8 - GI Upset 11 - Vomiting TETRACYCLINE 02/14/2006 8 - GI Upset TRAMADOL 04/28/2015 6 - Diarrhea Date Reviewed: 05/13/2018 Reviewed by: Jojo Tabares Ma - Fully Assessed Reason for Visit: 4 month f/u [Other] Primary Visit Diagnosis:Wrist pain, chronic, left [M25.532, G89.29] Comment:No better after seen in UC in February Other Visit Diagnoses:Well controlled type 2 diabetes mellitus (HCC) [E11.9] Wrist swelling, left [M25.432] Comment:ulnar side of wrist; Xrays were unremarkable Essential hypertension [I10] Hyperlipidemia with target LDL less than 70 [E78.5] Vitamin D deficiency [E55.9] Bile salt-induced diarrhea [K90.89] Gastroesophageal reflux disease without esophagitis [K21.9] Encounter for long-term current use of medication [Z79.899] Obesity (BMI 30.0-34.9) [E66.9] Order(s):CONSULT TO ORTHOPAEDICS [6320] Order #: [id number]: 1 metoprolol tartrate, short acting, (LOPRESSOR) 50 mg tabletTake 1 tablet by mouth twice daily.Disp: Rfl: clopidogrel (PLAVIX) 75 mg tabletTake 1 tablet by mouth once daily. (got refills from highway patrol pilot)Disp: Rfl: cholecalciferol, Vitamin D3, (VITAMIN D3) 50,000 unit cap capsuleTake 1 capsule by mouth once each week.Disp: 12 capsuleRfl: 3 colesevelam (WELCHOL) 625 mg tabletTake 3 tablets by mouth twice daily with meals. As directed for cholesterol and bile issuesDisp: 540 tabletRfl: 1 COMP METABOLIC PANEL [SQCMP] Order #: [id number] FUTURE LIPID PANEL BASIC [SQLIPB] Order #: [id number] FUTURE MAGNESIUM BLD [SQMG1] Order #: [id number] FUTURE HGB A1C [IVTWZ7X] Order #: [id number] FUTURE VITAMIN D 25 HYDROXY [SQVITD] Order #: [id number] FUTURE Prescriptions as of 05/13/2018 Sig: CLOPIDOGREL 75 MG TABLET Take 1 tablet by mouth once d* CHOLECALCIFEROL (VITAMIN D3) * Take 1 capsule by mouth once * METFORMIN 1,000 MG TABLET Take 1 tablet by mouth twice * TRAZODONE 100 MG TABLET Take 1.5 tablets by mouth neeta* ALBUTEROL SULFATE HFA 90 MCG/* Inhale 2 Puffs as instructed * RANITIDINE 150 MG TABLET Take 1 tablet by mouth twice * PRAVASTATIN 40 MG TABLET TAKE 1 TABLET ONCE DAILY PANTOPRAZOLE 40 MG TABLET,DEL* Take 1 tablet by mouth daily * ASPIRIN 81 MG TABLET,DELAYED * Take 1 tablet by mouth once d* BLOOD SUGAR DIAGNOSTIC STRIPS 1 Strip once daily. For diabe* LANCETS Test blood sugar(s) 1 times d* METOPROLOL TARTRATE 50 MG TAB* Take 1 tablet by mouth twice * COLESEVELAM 625 MG TABLET Take 3 tablets by mouth twice* * MELATONIN 3 MG TABLET Take 3 mg by mouth daily at b* Medication notes this encounter PRAVASTATIN 40 MG TABLET >> Feng Tejada MD 05/13/2018 3:02 PM >> FENG TEJADA MD e May 13, 2018 3:02 PM Will see if can tolerate higher dose since will be due for refill middle of this month COLESTIPOL 1 GRAM TABLET >> Feng Tejada MD 05/13/2018 3:05 PM stomach cramping so stopped med Problem List As Of Date 05/13/2018 Noted Resolved ALLERGIC RHINITIS NOS [J30.9] More... Diabetes mellitus [E11.9] INVALID FOR*05/12/2012 Hyperlipidemia with target LDL less than 70 [E7*INVALID FOR* More... GERD (Gastroesophageal Reflux Disease) [K21.9] INVALID FOR* Degenerative Arthritis of Knee [M17.10] INVALID FOR* Well controlled type 2 diabetes mellitus (HCC) *INVALID FOR* Pain in limb [M79.609] INVALID FOR*04/24/2017 Dermatophytosis of nail [B35.1] INVALID FOR*04/24/2017 Essential hypertension [I10] INVALID FOR* Diarrhea [R19.7] 04/24/2017 Benign neoplasm of colon [D12.6] INVALID FOR*04/24/2017 Chronic depression [F32.9] INVALID FOR*04/24/2017 Chronic insomnia [F51.04] INVALID FOR*04/24/2017 Knee pain [M25.569] INVALID FOR*11/26/2012 Continuous tobacco abuse [Z72.0] INVALID FOR* Osteoarthrosis, unspecified whether generalized*INVALID FOR*11/24/2012 Knee joint replacement by other means [Z96.659] INVALID FOR*04/24/2017 Statin intolerance [Z78.9] INVALID FOR* Neuropathic pain [M79.2] INVALID FOR* Abnormal mammogram [R92.8] INVALID FOR* Encounter for long-term (current) use of medica*INVALID FOR* More... Functional dyspepsia [K30] INVALID FOR* More... History of colonic polyps [Z86.010] INVALID FOR* More... Gastroesophageal reflux disease [K21.9] INVALID FOR* More... Other instructions from your clinician: Try taking pravastatin 80 mg daily (2 pills once daily)--if tolerated, let me know so can make next prescription for 80 mg. If not, let me know so can send for 40 mg. Prescriptions ordered this encounter Disp Refills Start End METOPROLOL TARTRATE 50 MG TABLET 05/13/2018 Class: Med Update Route: ORAL Sig: Take 1 tablet by mouth twice daily. CLOPIDOGREL 75 MG TABLET 05/13/2018 Class: Med Update Route: ORAL Sig: Take 1 tablet by mouth once daily. (got refills from highway patrol pilot) CHOLECALCIFEROL (VITAMIN D3) 50,000 * 12 c* 3 05/13/2018 Route: ORAL Sig: Take 1 capsule by mouth once each week. COLESEVELAM 625 MG TABLET 540 * 1 05/13/2018 Route: ORAL Sig: Take 3 tablets by mouth twice daily with meals. As directed for cholesterol and bile issues Medications Discontinued During This Encounter metoprolol tartrate, short acting, (* 04/24/2017 05/13/2018 Class: Historical Med Route: ORAL Sig: Take 0.5 tablets by mouth twice daily. Disc: Reason for discontinue is not on file. clopidogrel (PLAVIX) 75 mg tablet 30 t* 11 04/24/2017 05/13/2018 Class: Historical Med Route: ORAL Sig: Take 1 tablet by mouth once daily. Disc: Reason for discontinue is not on file. cholecalciferol, Vitamin D3, (VITAMI* 12 c* 0 12/17/2017 05/13/2018 Route: ORAL Sig: Take 1 capsule by mouth once each week. Patient not taking: Reported on 05/13/2018 Disc: Reason for discontinue is not on file. colestipol (COLESTID) 1 gram tablet 180 * 3 12/19/2017 05/13/2018 Route: ORAL Sig: Take 2 tablets by mouth once daily. Patient not taking: Reported on 05/13/2018 Disc: Adverse Reaction Disposition: Return in about 4 months (around 09/12/2018) for 4 months follow up, With labs prior. Follow-up and Disposition History Recorded Letter [id number] [place] [address] Office: [phone] Feng Reeder MD REQUEST FOR EYE EXAM FINDINGS November 02, 2016 Dear eye ostomy care nurse, Thank you for coordinating eye care for our mutual patient, Caty Pack (1960). Please fax this letter back to me with the most appropriate response selected below. Please allow the patient's signature to serve as permission to share your findings. Sincerely, Feng Reeder MD Patient Signature Date Date of eye exam: Findings Both Eyes Right Left No Retinopathy Detected Non Proliferative Retinopathy Mild Moderate Severe Proliferative Retinopathy Macular Edema Further testing and/or treatment indicated Comments: Patient is to return: Encounter Status:Closed by FENG TEJADA MD on 06/03/18 CBC Collected: 03/19/2018 Status: F Source: [place] 12:39 PM [facility] REPOSITORY TYPE CODE TESTS RESULT OUT OF REFERENCE UNITS RANGE LAB WBC 3.70-11.00 k/uL WBC 6.24 LAB RBC 3.90-5.20 m/uL RBC 4.30 LAB HGB 11.5-15.5 g/dL Hemoglobin 11.6 LAB HCT 36.0-46.0 % Hematocrit 38.1 LAB MCV 80.0-100.0 fL MCV 88.6 LAB MCH 26.0-34.0 pG MCH 27.0 LAB MCHC 30.5-36.0 g/dL Low MCHC 30.4 LAB RDWCV 11.5-15.0 % RDW-CV 14.4 LAB PLTCT 150-400 k/uL Platelet Count 197 LAB MPV 9.0-12.7 fL MPV 10.5 LAB ABSNUC <0.01 k/uL Absolute nRBC <0.01 Performed By: #### CBC, BMP, LIPB, LDLDCT, HBA1C, VITD #### [facility] [address] [place], [place] [address] BASIC METABOLIC PANL Collected: 03/19/2018 Status: F Source: [place] 12:39 PM [facility] REPOSITORY TYPE CODE TESTS RESULT OUT OF REFERENCE UNITS RANGE LAB GLU 74-99 mg/dL High Glucose 134 Result Comment: The [place] Diabetes Association (ADA) provides guidance for cutoff values for fasting glucose and random glucose. The ADA defines fasting as no caloric intake for at least 8 hours. Fas ting plasma glucose results between 100 to 125 mg/dL indicate increased risk for diabetes (prediabetes). Fasting plasma glucose results greater than or equal to 126 mg/dL meet the criteria for diagnosis of diabetes. In the absence of unequivocal hyperglycemia, results should be confirmed by repeat testing. In a patient with classic symptoms of hyperglycemia or hyperglycemic crisis, random plasma glucose results greater than or equal to 200 mg/dL meet the criteria for diagnosis of diabetes. Reference: Standards of Medical Care in Diabetes 2016, [place] [employer]. Diabetes Care. 2016.39(Suppl 1). LAB BUN 7-21 mg/dL BUN 11 LAB CRET 0.58-0.96 mg/dL Creatinine 0.70 LAB NA 136-144 mmol/L Sodium 139 LAB K 3.7-5.1 mmol/L Potassium 4.3 LAB CL 97-105 mmol/L Chloride 100 LAB CO2 22-30 mmol/L CO2 27 LAB AGAP 9-18 mmol/L Anion Gap 12 LAB CA 8.5-10.2 mg/dL Calcium, Total 9.2 LAB GFRAA eGFR- Amer. >60 LAB GFRNAA . eGFR-All Other Races >60 Result Comment: eGFR (Estimated GFR) Units of measure: mL/min/1.73 meters squared eGFR is derived from the reexpressed MDRD Study equation using the following parameters: serum creatinine, age, gender and race. The creatinine assay has been calibrated to be traceable to IDMS. An eGFR <60 mL/min/1.73m2 for >3 months is consistent with chronic kidney disease. Refer to KDOQI guidelines for clinical interpretation. In patients with unstable renal function, e.g. those with acute kidney injury, the eGFR may not accurately reflect actual GFR. Performed By: #### CBC, BMP, LIPB, LDLDCT, HBA1C, VITD #### [facility] [address] [place], [place] [address] LIPID PANEL, BASIC Collected: 03/19/2018 Status: F Source: [place] 12:39 PM [facility] REPOSITORY TYPE CODE TESTS RESULT OUT OF REFERENCE UNITS RANGE LAB CHOL <200 mg/dL Cholesterol High 304 Result Comment: <200 mg/dL, Desirable 200-239 mg/dL, Borderline high >239 mg/dL, High LAB TRIGLY <150 mg/dL Triglyceride High 404 Result Comment: <150 mg/dL, Normal 150-199 mg/dL, Borderline high 200-499 mg/dL, High >499 mg/dL, Very high LAB HDL >39 mg/dL HDL-Cholesterol 40 Result Comment: 40-59 mg/dL, Acceptable >59 mg/dL, High: Negative risk factor for coronary heart disease <40 mg/dL, Low: Positive risk factor for coronary heart disease LAB LDL <100 mg/dL LDL-Cholesterol Unable to calculate due to increased Triglycerides. See LDL-Chol, Direct. LAB NONHDL <130 mg/dL Non HDL Cholesterol 264 High Result Comment: <130 mg/dL, Optimal 130-159 mg/dL, Near optimal/above optimal 160-189 mg/dL, Borderline high 190-219 mg/dL, High >219 mg/dL, Very high Secondary prevention optimal non HDL Cholesterol levels are recommended to be < 100 mg/dL LAB FT hrs Fasting Time 14 LAB VLDL <30 mg/dL VLDL Unable Cholesterol to calculate due to increased Triglycerides. See LDL-Chol, Direct. LAB TCHDL <5.10 TC:HDL Ratio 7.60 High LAB LDLHDL <2.54 LDL:HDL Ratio Unable to calculate due to elevated Triglycerides. Result Comment: Reference: 1. National Cholesterol Education Program ATP III Guideline At-A-Glance Quick Desk Reference: National Heart, Lung, and Blood [place]. National Institutes of Health. 2001: NIH Publication No. 01-3305. 2. An International Atherosclerosis Society position paper: global recommendations for the management of dyslipidemia: executive summary, Atherosclerosis. 2014: 232(2):410-413. Performed By: #### CBC, BMP, LIPB, LDLDCT, HBA1C, VITD #### [facility] [address] [place], [place] [address] LDL-CHOL, DIRECT Collected: 03/19/2018 Status: F Source: [place] 12:39 PM [facility] REPOSITORY TYPE CODE TESTS RESULT OUT OF REFERENCE UNITS RANGE LAB LDLDIR <100 mg/dL High LDL-Chol, 198 Direct Result Comment: <100 mg/dL, Optimal 100-129 mg/dL, Near optimal/above optimal 130-159 mg/dL, Borderline high 160-189 mg/dL, High >189 mg/dL, Very high Secondary prevention optimal LDL Cholesterol levels are recommended to be < 70 mg/dL LAB VLDL1 <30 mg/dL VLDL Cholesterol High 66 Performed By: #### CBC, BMP, LIPB, LDLDCT, HBA1C, VITD #### [facility] [address] [place] [id number] HEMOGLOBIN A1C Collected: 03/19/2018 Status: F Source: [place] 12:39 [facility] REPOSITORY TYPE CODE TESTS RESULT OUT OF REFERENCE UNITS RANGE LAB HGBA1C 4.3-5.6 % High Hemoglobin A1c 7.1 LAB HBA0 mg/dL Est. Average Glucose 157 Result Comment: eAG: (Estimated average glucose) is a calculated value from HgbA1c and is medical billing representative of the average blood glucose level in the last 2-3 month period. Performed By: #### CBC, BMP, LIPB, LDLDCT, HBA1C, VITD #### [facility] [address] [place] [address] VITAMIN D 25 HYDROXY Collected: 03/19/2018 Status: F Source: [place] 12:39 PM [facility] REPOSITORY TYPE CODE TESTS RESULT OUT OF REFERENCE UNITS RANGE LAB VITD 31.0-80.0 ng/mL Low Vitamin D 25 26.8 Hydroxy Result Comment: Classification of 25 [place] Vitamin D status: Insufficiency/Moderate Deficiency: < or = 30 ng/mL Sufficiency/Optimal Levels: 31 to 80 ng/mL Toxicity: > 100 ng/mL Test performed by chemiluminescent immunoassay. Performed By: #### CBC, BMP, LIPB, LDLDCT, HBA1C, VITD #### [facility] [address] [place] [id number] XR WRIST 4V Observed: 03/01/2018 Status: F Source: [place] PA/LAT/OBL/SCAPH LT 2:02 PM [facility] REPOSITORY * * *Final Report* * * DATE OF EXAM: Mar 01 2018 2:02PM WOX [id number] - XR WRIST 4V PA/LAT/OBL/SCAPH LT / PROCEDURE REASON: Pain in left wrist * * * * Physician Interpretation * * * * INDICATION: Pain in left wrist EXAMINATION: XR WRIST 4V PA/LAT/OBL/SCAPH LT COMPARISON:None RESULT: 4 views of the left wrist show no acute bony abnormality. Arthritic joint space narrowing involving the carpometacarpal joint of the thumb is seen. IMPRESSION: No acute abnormality. Cut Order Hand: PSCB Transcribe Date/Time: Mar 01 2018 2:05P Dictated by : MARK AZUL MD This examination was interpreted and the report reviewed and electronically signed by: MARK AZUL MD on Mar 01 2018 2:06PM EST [id number] PROGRESS Observed: 03/01/2018 Status: COMPLETED Source: [place] 1:52 PM [facility] REPOSITORY HNO ID: [id number] Author: Melba Brower (Rt) Service: (none) Author Type: Senior Animal Trainer Type: Progress Notes Filed: 03/01/2018 2:02 PM Note Text: Radiology Service Progress Note PATIENT NAME: Caty Pack DATE OF SERVICE: March 01, 2018 TIME: 1:52 PM PATIENT IDENTITY VERIFICATION COMPLETED USING TWO (2) METHODS: Patient confirmed name verbally and Date of . PATIENT GENDER DATA: Female. status: : No status: NO. PATIENT RELEVANT IMPLANT DATA REVIEWED: Not Applicable RADIOLOGY DEPARTMENT: General X-ray: Exam(s) Completed: Upper Extremity X-Ray(s): Wrist, left : PERIPHERAL IV DATA: Not applicable SIGNED BY: RT Ioncente March 01, 2018 1:52 PM PROGRESS Observed: 03/01/2018 Status: COMPLETED Source: [place] 1:41 PM [facility] REPOSITORY HNO ID: [id number] Author: Alem Chew Service: (none) Author Type: Nurse Practitioner Type: Progress Notes Filed: 03/01/2018 2:21 PM Note Text: Subjective The history is provided by the patient and the spouse. No director speech language was used. HPI Caty Pack is a 57 year old female who presents today for CC of left wrist pain. This started 2 weeks ago. She is also having mild swelling, no redness Symptoms are worsened by movement, or pressure. She has tried ice. Risk factors trauma to wrist while she was working in the garage, tripped and tried to catch self and hit either grill or mower. PMH arthritis. BP 110/70 Pulse 65 Temp 36.5 ?C (97.7 ?F) (Tympanic) Resp 18 Wt 88.5 kg (195 lb 3.2 oz) LMP 03/29/2006 BMI 32.99 kg/m? ALLERGIES Allergen Reactions - Carbamazepine Diarrhea - Crestor [Rosuvastat* Other: See Comments Myalgia, arthralgia. - Demerol [Meperidine* GI Upset, Vomiting - Diltiazem Rash, Other: See Comments Chest pain, dark urine, rash. - Levaquin [Levofloxa* GI Upset, Vomiting - Tetracycline GI Upset - Tramadol Diarrhea ACTIVE PROBLEM LIST Allergic Rhinitis, Cause Unspecified Hyperlipidemia With Target Ldl Less Than 70 Gerd (Gastroesophageal Reflux Disease) Degenerative Arthritis of Knee Well Controlled Type 2 Diabetes Mellitus (Hcc) Essential Hypertension Continuous Tobacco Abuse Statin Intolerance Neuropathic Pain Abnormal Mammogram Encounter for Long-Term (Current) Use of Medications Functional Dyspepsia History of Colonic Polyps Gastroesophageal Reflux Disease Family History Problem Relation Age of Onset - Diabetes Mother - Heart Mother - Stroke Mother - Cancer Father breast cancer. - Arthritis Brother - Heart Brother - Diabetes Brother - Arthritis Maternal Grandmother - Breast Cancer Paternal Grandfather Dad's dad. 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 (11/06/17) Alcohol use: No Comment: OCC Drug use: No Sexual activity: Yes Social History Narrative Not working any longer. Disability from arthritis since ~2009. Review of Systems Constitutional: Negative for chills, fever and malaise/fatigue. Musculoskeletal: Positive for joint pain (left wrist). Negative for myalgias. Skin: Negative for rash. Neurological: Negative for tingling and headaches. Objective Physical Exam Constitutional: She is oriented to person, place, and time and well-developed, well-nourished, and in no distress. No distress. HENT: Head: Normocephalic and atraumatic. Eyes: Conjunctivae and EOM are normal. Pupils are equal, round, and reactive to light. Neck: Normal range of motion. Neck supple. Pulmonary/Chest: Effort normal. Musculoskeletal: Left wrist: She exhibits decreased range of motion, tenderness, bony tenderness (over pisiform bone of wrist) and swelling. She exhibits no effusion, no crepitus, no deformity and no laceration. Neurological: She is alert and oriented to person, place, and time. Skin: Skin is warm and dry. Psychiatric: Affect normal. Nursing note and vitals reviewed. ASSESSMENT/PLAN: 1. Left wrist pain - ICD9: 719.43, ICD10: M25.532 Rest, ice, elevation, Wrist splint as applied for comfort, pain medications as discussed Tylenol as needed for pain See your doctor if not improving - XR WRIST INJURY 4V PA/LAT/OBL/SCAPH LT - interpreted by Mark Azul MD IMPRESSION: No acute abnormality. RESULT: 4 views of the left wrist show no acute bony abnormality. ?Arthritic joint space narrowing involving the carpometacarpal joint of the thumb is seen. Diagnosis and treatment plan were discussed and questions were answered to the patient's satisfaction. Pt acknowledged understanding of concepts and follow up plan. Specific signs and symptoms that would indicate the need for higher level of care were discussed in detail warranting prompt ER evaluation. Alem Chew APRN.NEWS SPECIALIST CNOV Observed: 03/01/2018 Status: COMPLETED Source: [place] 1:00 PM [facility] REPOSITORY Office Visit (WSTR) LARRYCATY Raffi ([id number]) 1960 F T Date Time Provider Department 03/01/18 1:00 PM ALEM CHEW (NEWS SPECIALIST) [facility] During your visit today, we recorded the following information about you: Temperature Pulse Respiration Blood pressure 97.7 degrees 65/minute 18/minute 110/70 Weight 88.5 kg Alem Chew APRN.CNP 03/01/2018 2:21 PM Signed Subjective The history is provided by the patient and the spouse. No director speech language was used. HPI Caty Pack is a 57 year old female who presents today for CC of left wrist pain. This started 2 weeks ago. She is also having mild swelling, no redness Symptoms are worsened by movement, or pressure. She has tried ice. Risk factors trauma to wrist while she was working in the garage, tripped and tried to catch self and hit either grill or mower. PMH arthritis. BP 110/70 Pulse 65 Temp 36.5 ?C (97.7 ?F) (Tympanic) Resp 18 Wt 88.5 kg (195 lb 3.2 oz) LMP 03/29/2006 BMI 32.99 kg/m? ALLERGIES Allergen Reactions - Carbamazepine Diarrhea - Crestor [Rosuvastat* Other: See Comments Myalgia, arthralgia. - Demerol [Meperidine* GI Upset, Vomiting - Diltiazem Rash, Other: See Comments Chest pain, dark urine, rash. - Levaquin [Levofloxa* GI Upset, Vomiting - Tetracycline GI Upset - Tramadol Diarrhea ACTIVE PROBLEM LIST Allergic Rhinitis, Cause Unspecified Hyperlipidemia With Target Ldl Less Than 70 Gerd (Gastroesophageal Reflux Disease) Degenerative Arthritis of Knee Well Controlled Type 2 Diabetes Mellitus (Hcc) Essential Hypertension Continuous Tobacco Abuse Statin Intolerance Neuropathic Pain Abnormal Mammogram Encounter for Long-Term (Current) Use of Medications Functional Dyspepsia History of Colonic Polyps Gastroesophageal Reflux Disease Family History Problem Relation Age of Onset - Diabetes Mother - Heart Mother - Stroke Mother - Cancer Father breast cancer. - Arthritis Brother - Heart Brother - Diabetes Brother - Arthritis Maternal Grandmother - Breast Cancer Paternal Grandfather Dad's dad. 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 (11/06/17) Alcohol use: No Comment: OCC Drug use: No Sexual activity: Yes Social History Narrative Not working any longer. Disability from arthritis since ~2009. Review of Systems Constitutional: Negative for chills, fever and malaise/fatigue. Musculoskeletal: Positive for joint pain (left wrist). Negative for myalgias. Skin: Negative for rash. Neurological: Negative for tingling and headaches. Objective Physical Exam Constitutional: She is oriented to person, place, and time and well-developed, well-nourished, and in no distress. No distress. HENT: Head: Normocephalic and atraumatic. Eyes: Conjunctivae and EOM are normal. Pupils are equal, round, and reactive to light. Neck: Normal range of motion. Neck supple. Pulmonary/Chest: Effort normal. Musculoskeletal: Left wrist: She exhibits decreased range of motion, tenderness, bony tenderness (over pisiform bone of wrist) and swelling. She exhibits no effusion, no crepitus, no deformity and no laceration. Neurological: She is alert and oriented to person, place, and time. Skin: Skin is warm and dry. Psychiatric: Affect normal. Nursing note and vitals reviewed. ASSESSMENT/PLAN: 1. Left wrist pain - ICD9: 719.43, ICD10: M25.532 Rest, ice, elevation, Wrist splint as applied for comfort, pain medications as discussed Tylenol as needed for pain See your doctor if not improving - XR WRIST INJURY 4V PA/LAT/OBL/SCAPH LT - interpreted by Mark Azul MD IMPRESSION: No acute abnormality. RESULT: 4 views of the left wrist show no acute bony abnormality. ?Arthritic joint space narrowing involving the carpometacarpal joint of the thumb is seen. Diagnosis and treatment plan were discussed and questions were answered to the patient's satisfaction. Pt acknowledged understanding of concepts and follow up plan. Specific signs and symptoms that would indicate the need for higher level of care were discussed in detail warranting prompt ER evaluation. Alem Chew APRN.JACI Chew APRN.JACI 03/01/2018 2:17 PM Signed ASSESSMENT/PLAN: 1. Left wrist pain - ICD9: 719.43, ICD10: M25.532 Rest, ice, elevation, splint as applied, pain medications as discussed Tylenol as needed for pain See your doctor if not improving - XR WRIST INJURY 4V PA/LAT/OBL/SCAPH LT No fracture seen on xray Referring Provider: SELF [[id number]] Allergies As of Date: 03/01/2018 Noted Allergy Reaction CARBAMAZEPINE 10/31/2015 6 - Diarrhea CRESTOR (ROSUVASTATIN CALCIUM) 01/24/2011 14 - Other: See Comments Comments: Myalgia, arthralgia. DEMEROL (MEPERIDINE (PF)) 11/21/2009 8 - GI Upset 11 - Vomiting DILTIAZEM 10/19/2015 2 - Rash 14 - Other: See Comments Comments: Chest pain, dark urine, rash. LEVAQUIN (LEVOFLOXACIN) 11/21/2009 8 - GI Upset 11 - Vomiting TETRACYCLINE 02/14/2006 8 - GI Upset TRAMADOL 04/28/2015 6 - Diarrhea Date Reviewed: 03/01/2018 Reviewed by: Alem ([facility]) Jeevan - Fully Assessed Reason for Visit: left wrist pain [Other] Cmt: x 2 weeks-cannot recall an injury but states that she did bump it when she was working in the shed Primary Visit Diagnosis:Left wrist pain [M25.532] Order(s):XR WRIST INJURY 4V PA/LAT/OBL/SCAPH LT [[id number]] Order #: [id number]. #:[id number] Prescriptions as of 03/01/2018 Sig: METFORMIN 1,000 MG TABLET Take 1 tablet by mouth twice * TRAZODONE 100 MG TABLET Take 1.5 tablets by mouth neeta* ALBUTEROL SULFATE HFA 90 MCG/* Inhale 2 Puffs as instructed * RANITIDINE 150 MG TABLET Take 1 tablet by mouth twice * COLESTIPOL 1 GRAM TABLET Take 2 tablets by mouth once * CHOLECALCIFEROL (VITAMIN D3) * Take 1 capsule by mouth once * PRAVASTATIN 40 MG TABLET TAKE 1 TABLET ONCE DAILY PANTOPRAZOLE 40 MG TABLET,DEL* Take 1 tablet by mouth daily * ASPIRIN 81 MG TABLET,DELAYED * Take 1 tablet by mouth once d* CLOPIDOGREL 75 MG TABLET Take 1 tablet by mouth once d* METOPROLOL TARTRATE 25 MG TAB* Take 0.5 tablets by mouth twi* BLOOD SUGAR DIAGNOSTIC STRIPS 1 Strip once daily. For diabe* LANCETS Test blood sugar(s) 1 times d* * MELATONIN 3 MG TABLET Take 3 mg by mouth daily at b* Problem List As Of Date 03/01/2018 Noted Resolved ALLERGIC RHINITIS NOS [J30.9] More... Diabetes mellitus [E11.9] INVALID FOR*05/12/2012 Hyperlipidemia with target LDL less than 70 [E7*INVALID FOR* More... GERD (Gastroesophageal Reflux Disease) [K21.9] INVALID FOR* Degenerative Arthritis of Knee [M17.10] INVALID FOR* Well controlled type 2 diabetes mellitus (HCC) *INVALID FOR* Pain in limb [M79.609] INVALID FOR*04/24/2017 Dermatophytosis of nail [B35.1] INVALID FOR*04/24/2017 Essential hypertension [I10] INVALID FOR* Diarrhea [R19.7] 04/24/2017 Benign neoplasm of colon [D12.6] INVALID FOR*04/24/2017 Chronic depression [F32.9] INVALID FOR*04/24/2017 Chronic insomnia [F51.04] INVALID FOR*04/24/2017 Knee pain [M25.569] INVALID FOR*11/26/2012 Continuous tobacco abuse [Z72.0] INVALID FOR* Osteoarthrosis, unspecified whether generalized*INVALID FOR*11/24/2012 Knee joint replacement by other means [Z96.659] INVALID FOR*04/24/2017 Statin intolerance [Z78.9] INVALID FOR* Neuropathic pain [M79.2] INVALID FOR* Abnormal mammogram [R92.8] INVALID FOR* Encounter for long-term (current) use of medica*INVALID FOR* More... Functional dyspepsia [K30] INVALID FOR* More... History of colonic polyps [Z86.010] INVALID FOR* More... Gastroesophageal reflux disease [K21.9] INVALID FOR* More... Other instructions from your clinician: ASSESSMENT/PLAN: 1. Left wrist pain - ICD9: 719.43, ICD10: M25.532 Rest, ice, elevation, splint as applied, pain medications as discussed Tylenol as needed for pain See your doctor if not improving - XR WRIST INJURY 4V PA/LAT/OBL/SCAPH LT No fracture seen on xray Encounter Status:Closed by ALEM CHEW CNP on 03/01/18 CARDIOLOGY VISIT Observed: 02/21/2018 Status: F Source: [place] REPORT 4:56 PM [facility] REPOSITORY [facility] [address] [place] [address] OFFICE VISIT Date of Service: 02/21/18 MR#: [id number] Acct: [id number] Name: CATY PACK Rep #: [id number] : 1960 Provider: JODIE Bailey Age/Sex: 57/F Location: [facility] Status: Signed HPI HPI Details: CATY PACK, is a 57 F who presents to the office today for a cardiovascular outpatient follow-up. She has a history of coronary artery disease status post stenting to her proximal OM and LAD in October 2016 and again to her LAD in August 2017, hyperlipidemia, diabetes mellitus, and nicotine dependence. Pt denies arm, jaw, or neck discomfort. Her exercise tolerance is stable, though minimal and is hoping to do more walking. Pt denies symptoms of CHF, palpitations, or syncopal episodes. Pt denies edema or claudication issues. Pt. denies orthopnea, PND, fever, chills, blood in urine, blood in stool, or myalgia. Pt. states yesterday she developed chest while sitting that lasted for 1 minutes that was relieved on its own and no aggravating factors. This is the same sensation as discussed in last office visit. She states having a headache with it. This too resolved on its own. She states while standing she developed lightheaded and dizziness with some pre-syncope sensation. This lasted for about a minute. This occurred two days ago. This is not new. Patient states feeling as if her energy has decreased. Intake Vital Signs02/21/18 Height 5 ft 4 in 02/21/18 Weight: 195 lb 02/21/18 Body Mass Index (BMI) 33.5 02/21/18 Blood Pressure 122/72 Intake Visit Reasons: 4 M FU Neurology Director Required: No Accompanied by: Is patient in pain?: Yes Allergies diltiazem Allergy (Verified 02/21/18 13:26) Unknown levofloxacin [From Levaquin] Adverse Reaction (Verified 02/21/18 13:26) Upset Stomach meperidine HCl [From Demerol] Adverse Reaction (Verified 02/21/18 13:26) Vomiting rosuvastatin calcium [From Crestor] Adverse Reaction (Verified 02/21/18 13:26) Pain in joints Tetracyclines Adverse Reaction (Verified 02/21/18 13:26) Upset Stomach tramadol Adverse Reaction (Verified 02/21/18 13:26) Diarrhea Medications Albuterol IH (ProAir) [Proair Hfa] 1 puff INHALATION Q6H PRN PRN 12/16/14 [History Confirmed 02/21/18] Metformin HCl [Glucophage] 1,000 mg PO BID 12/16/14 [History Confirmed 02/21/18] Trazodone HCl 150 mg PO QHS 12/16/14 [History Confirmed 02/21/18] Nitroglycerin [Nitrostat] 0.4 mg SUBLINGUAL Q5M PRN #25 tab 10/20/16 [Rx Confirmed 02/21/18] aspirin 81 mg tablet,delayed release 81 mg PO DAILY@0800 #90 tab 10/03/17 [Rx Confirmed 02/21/18] clopidogrel 75 mg tablet 75 mg PO DAILY #90 tab 10/03/17 [Rx Confirmed 02/21/18] pantoprazole 40 mg tablet,delayed release 40 mg PO DAILY #90 tab 10/03/17 [Rx Confirmed 02/21/18] pravastatin 40 mg tablet 40 mg PO QHS #90 tab 17 [Rx Confirmed 02/21/18] metoprolol tartrate 50 mg tablet 50 mg PO BID tab 02/21/18 [History] Ejection fraction %: 60 to 64 PFSH Medical History Hypertension (Chronic) Abnormal electrocardiogram (Chronic) Cardiac murmur (Chronic) Abnormal stress test (Chronic) Atypical chest pain (Resolved) Cigarette nicotine dependence (Chronic) Hyperlipemia, mixed (Chronic) Atherosclerosis of [place] coronary artery of [place] heart without angina pectoris (Chronic) Diabetes (Chronic) CAD (coronary artery disease), [place] coronary artery (Acute) Chest pain (Acute) Fatigue (Acute) Syncope and collapse (Acute) Surgical History S/P angioplasty with stent (Acute) Family History Mother CAD (coronary artery disease) Mother CVA (cerebral vascular accident) Diabetes Brother Myocardial infarction Cancer History of PTCA Diabetes Social History Smoking Status: Current every day smoker alcohol intake: never substance use type: does not use caffeine: Yes Type: coffee what type of physical activity do you participate in: other details: cardiac rehab frequency: 3-4 times per week duration: 15-30 minutes/day seatbelt use: always do you feel safe at home: Yes ROS Const Const: Negative for fatigue, weakness, body ache, fever(s) or chills ENT ENT: Positive for dizziness Cardio Chest Pain: Yes Palpitations: No Edema: None Muscle aches with walking: None Resp Respiratory: Negative for SOB with activity, SOB at rest, SOB orthopnea\SOB lying down or paroxysmal nocturnal dyspnea GI GI: Negative nausea, black,tarry stools, bright, red blood in stools or vomiting blood/hematemesis : Negative for hematuria or frequent nighttime urination/ nocturia Musc Musc: Negative for muscle aches/ myalgia Skin Skin: Negative non-healing lesions or rash Neuro Neuro: Positive for dizziness, lightheadedness and near syncope; negative for weakness, syncope or orthostatic symptoms Endo Endo: Negative for fatigue Allergy Allergy/Immunology: Negative for rash Cardiology Exam Const Appearance: cooperative, healthy appearing, comfortable and no acute distress Orientation: alert, awake and oriented x3 Head Head: normal to inspection Ears: hearing grossly normal bilaterally Nose: external nose normal Face and Sinus: face symmetric Mouth: oral mucosae normal Eyes General: appearance normal, both eyes and all related structures Eyelids: eyelids normal Neck Neck: no JVD and normal visual inspection Carotids: normal carotid upstroke Chest Chest inspection: normal inspection of the chest and normal respiratory effort; negative cough Auscultation: Bilateral: Clear to Auscultation Cardio Rate: regular rate Rhythm: regular rhythm Heart sounds: S1 normal and S2 normal; negative rub or gallop GI GI: normal to inspection Neuro General: alert, awake, oriented x3 and CN's II-XI intact bilaterally Skin Skin: no rashes or lesions noted Extremities Pulses: Normal: Right Posterior Tibial Pulse, Left Posterior Tibial Pulse, Right Radial Pulse, Left Radial Pulse Lower Extremity Edema: None: Bilateral Psych Psychological: normal affect Supplemental Info Stress test from August 2017 was positive for myocardial induced ischemia and showed ejection fraction of 71%. Heart catheterization from October 2016 showed an ejection fraction of 60%, left main coronary artery that is angiographically normal, LAD with proximal 95% stenosis followed by 25-50% stenosis, diagonal branch 1 with 25-50% stenosis, OM 2 with proximal 25% stenosis followed by mid 25-50% stenosis, OM 4 with 95% stenosis, RCA with 85% stenosis, and mild to moderate mitral valve regurgitation that was partially catheter/PVC induced. Heart catheterization from August 2017 showed left main is intra-graphically normal, proximal LAD with previous placed stent with 95% restenosis, mid LAD with 25% stenosis, distal LAD with mild luminal irregularities, diagonal 1 with 50% stenosis, OM1 with mild luminal irregularities, OM 2 with 25-50% stenosis, OM 3 with previous placed stent is patent, normal aortic valve function, mitral valve insufficiency grade 1, and angiographically normal aortic root. She underwent drug-eluting stent to 95% in-stent restenosis LAD. Assessment AND Plan 1. Atherosclerosis of [place] coronary artery of [place] heart without angina pectoris I25.10 LAD and OM PCI in October 2016:;LAD PCI in August 2017; Plan Patient is status post recent PCI to her LAD for in-stent restenosis. She has a prior history of stenting to her LAD and obtuse marginal in October 2016. Patient denies any worsening chest pain during cardiac rehab, arm pain, jaw pain, neck pain, shortness of breath, or fatigue suggestive of angina at this time. We will continue to monitor this. We will not make any medication regimen changes and will continue risk factor modification. 2. S/P angioplasty with stent Z95.9 PCI to LAD 2016 Plan Patient continue current plan as outlined above. 3. Atypical chest pain R07.89 Plan Patient had one brief episode of chest pain. She states being able to carry out cardiac rehab without any symptoms. At this time she was advised to continue to monitor this. If her symptoms worsen or progress with exercise, she was instructed to contact our office. We will see the patient back in approximately 6 months and at that time we can further evaluate any changes in chest pain. 4. Essential hypertension I10 Plan Patient's blood pressure is well-controlled today in the office. We will continue to monitor this. We will not make any medication regimen changes. 5. Hyperlipemia, mixed E78.2 Plan Patient continues to follow-up with primary care physician for this. We will continue current cholesterol-lowering medication. 6. Type 2 diabetes mellitus without complication, without long-term current use of insulin E11.9 Plan Patient will continue follow-up with primary care physician for this. We will not make any medication regimen changes. 7. Cigarette nicotine dependence without complication F17.210 Plan Patient continues to smoke. She received extensive education regarding the health benefits of smoking cessation. We will continue to support and encourage smoking cessation. 8. Fatigue, unspecified type R53.83 Plan The exact etiology of patient's fatigue is on no. She states that she has had a recent laboratory work including thyroid testing with primary care physician. She states that everything was normal. We will decrease her metoprolol to 50 mg twice daily to discern if her beta-rayna is contributing to this. She was asked to continue/improve her overall exercise to help with this as well as medication adjustment. She was also instructed to contact our office in the approximately 2-3 weeks with an update on symptoms, blood pressure, and heart rate. Plan Detail Additional Comments Thank you for allowing us to participate in the patients plan of care, if you have any questions please do not hesitate to call. This note was generated using a voice recognition system and there may be incorrect words, spelling or punctuation that were not noted when reviewing the office note prior to saving. Follow Up 6 Months ([employer]/PA) 12 Months (PFM) Coding Level of Care Code Off vis,est,level 3 Diagnoses Atherosclerosis of [place] coronary artery of [place] heart without angina pectoris I25.10 S/P angioplasty with stent Z95.9 Atypical chest pain R07.89 Essential hypertension I10 Hypertension type: essential hypertension Hyperlipemia, mixed E78.2 Type 2 diabetes mellitus without complication, without long- term current use of insulin E11.9 Diabetes mellitus type: type 2 Diabetes mellitus complication status: without complication Diabetes mellitus long-term insulin use: without long-term use Cigarette nicotine dependence without complication F17.210 Substance use status: uncomplicated Fatigue, unspecified type R53.83 Fatigue type: unspecified Coding Level of Care Code Off vis,est,level 3 Diagnoses Atherosclerosis of [place] coronary artery of [place] heart without angina pectoris I25.10 S/P angioplasty with stent Z95.9 Atypical chest pain R07.89 Essential hypertension I10 Hypertension type: essential hypertension Hyperlipemia, mixed E78.2 Type 2 diabetes mellitus without complication, without long- term current use of insulin E11.9 Diabetes mellitus type: type 2 Diabetes mellitus complication status: without complication 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 [place] [address] OFFICE VISIT Date of Service: 10/03/17 MR#: [id number] Acct: [id number] Name: CATY PACK Rep #: [id number] : 1960 Provider: JODIE Bailey Age/Sex: 57/F Location: [facility] Status: Signed HPI PCI: Chief Complaint: Routine follow-up Details: CATY PACK, is a 57 F who presents to the office today for a cardiovascular outpatient follow-up. She is history of coronary artery disease status post stenting to her proximal OM and LAD in October 2016 and again to her LAD in August 2017, hyperlipidemia, diabetes mellitus, and nicotine dependence. Pt denies arm, jaw, or neck discomfort. Her exercise tolerance is stable via cardiac rehab. Pt denies symptoms of CHF, palpitations, lightheadedness, dizziness, near syncopal or syncopal episodes. Pt denies edema or claudication issues. Pt. denies orthopnea, PND, fever, chills, blood in urine, blood in stool, or myalgia. Pt. states having one episode of a burning/stabbing sensation in her chest that lasted for less than a minute. She rates it a 5/10. She states it was hard to take a full breath. She denies any other secondary symptoms during this episode. It has not recurred since that initial episode. Pt's notes some snoring. He denies any witness apnea. The patient states fatigue all the time. She states being diagnosed with mild sleep apnea and she has tried BiPap in the past. Intake Vital Signs10/03/17 Height 5 ft 4 in 10/03/17 Weight: 188 lb 10/03/17 Body Mass Index (BMI) 32.2 10/03/17 Blood Pressure 130/72 10/03/17 Blood Pressure Location Lt brachial Intake Visit Reasons: PCI Neurology Director Required: No Accompanied by: Is patient in pain?: No Allergies diltiazem Allergy (Verified 09/09/17 09:39) Unknown levofloxacin [From Levaquin] Adverse Reaction (Verified 04/26/16 19:04) Upset Stomach meperidine HCl [From Demerol] Adverse Reaction (Verified 10/17/16 14:56) Vomiting rosuvastatin calcium [From Crestor] Adverse Reaction (Verified 04/26/16 19:04) Pain in joints Tetracyclines Adverse Reaction (Verified 10/17/16 14:56) Upset Stomach tramadol Adverse Reaction (Verified 10/19/16 16:56) Diarrhea Medications Albuterol IH (ProAir) [Proair Hfa] 1 puff INHALATION Q6H PRN PRN 12/16/14 [History Confirmed 09/09/17] Melatonin/Pyridoxine [Melatonin 3 mg Tablet] 1 tab PO QHS 12/16/14 [History Confirmed 09/10/17] Metformin HCl [Glucophage] 1,000 mg PO BID 12/16/14 [History Confirmed 09/09/17] Trazodone HCl 150 mg PO QHS 12/16/14 [History Confirmed 09/09/17] Nitroglycerin [Nitrostat] 0.4 mg SUBLINGUAL Q5M PRN #25 tab 10/20/16 [Rx Confirmed 09/09/17] aspirin 81 mg tablet,delayed release 81 mg PO DAILY@0800 #90 tab 10/03/17 [Rx Confirmed 10/03/17] clopidogrel 75 mg tablet 75 mg PO DAILY #90 tab 10/03/17 [Rx Confirmed 10/03/17] metoprolol tartrate 75 mg tablet 75 mg PO BID #180 tab 10/03/17 [Rx Confirmed 10/03/17] pantoprazole 40 mg tablet,delayed release 40 mg PO DAILY #90 tab 10/03/17 [Rx Confirmed 10/03/17] pravastatin 20 mg tablet 40 mg PO QHS #90 tab 10/03/17 [Rx Confirmed 10/03/17] Ejection fraction %: 60 to 64 PFSH Medical History Atypical chest pain (Resolved) Cigarette nicotine dependence (Chronic) Hyperlipemia, mixed (Chronic) Atherosclerosis of [place] coronary artery of [place] heart without angina pectoris (Chronic) Diabetes (Chronic) CAD (coronary artery disease), [place] coronary artery (Acute) Surgical History S/P angioplasty with stent (Acute) Family History Mother CAD (coronary artery disease) Mother CVA (cerebral vascular accident) Diabetes Brother Myocardial infarction Cancer History of PTCA Diabetes Social History Smoking Status: Current every day smoker alcohol intake: never substance use type: does not use caffeine: Yes Type: coffee what type of physical activity do you participate in: other details: cardiac rehab frequency: 3-4 times per week duration: 15-30 minutes/day seatbelt use: always do you feel safe at home: Yes ROS Const Const: Positive for fatigue; negative for weakness, body ache, fever(s) or chills ENT ENT: Negative for dizziness Cardio Chest Pain: Yes Frequency: other (once) Character: sharp, other (burning) Onset: at rest Location: left chest Duration: brief Palpitations: Positive for No Edema: None Muscle aches with walking: None Resp Respiratory: Negative for SOB with activity, SOB at rest, SOB orthopnea\SOB lying down or paroxysmal nocturnal dyspnea GI GI: Negative nausea, black,tarry stools, bright, red blood in stools or vomiting blood/hematemesis : Negative for hematuria or frequent nighttime urination/ nocturia Musc Musc: Negative for muscle aches/ myalgia Neuro Neuro: Negative for weakness, Negative for dizziness, Negative for lightheadedness, Negative for near syncope, Negative for syncope, Negative for orthostatic symptoms Endo Endo: Positive for fatigue Cardiology Exam Const Appearance: cooperative, healthy appearing, comfortable and no acute distress Orientation: alert, awake and oriented x3 Head Head: normal to inspection Mouth: oral mucosae normal Neck Neck: no JVD and normal visual inspection Carotids: normal carotid upstroke Chest Chest inspection: normal inspection of the chest and normal respiratory effort Auscultation: Bilateral: Clear to Auscultation Cardio Rate: regular rate Rhythm: regular rhythm Heart sounds: murmur (LLSB systolic); negative gallop or rub Murmur: Grade 1/6 GI GI: normal to inspection Neuro General: alert, awake, oriented x3 and CN's II-XI intact bilaterally Skin Skin: no rashes or lesions noted Extremities Pulses: Normal: Right Posterior Tibial Pulse, Left Posterior Tibial Pulse, Right Radial Pulse, Left Radial Pulse Lower Extremity Edema: None: Bilateral Psych Psychological: normal affect Assessment AND Plan 1. Atherosclerosis of [place] coronary artery of [place] heart without angina pectoris I25.10 LAD and OM PCI in October 2016:;LAD PCI in August 2017; Mylene - DELBERT Melvin Patient is status post recent PCI to her LAD for in-stent restenosis. She has a prior history of stenting to her LAD and obtuse marginal in October 2016. Patient denies any reoccurring chest pain, arm pain, jaw pain, neck pain, shortness of breath, or fatigue suggestive of angina at this time. We will continue to monitor this. We will not make any medication regimen changes and will continue risk factor modification. Patient will continue cardiac rehab. We will evaluate her in approximately 4 months at the completion of cardiac rehab to evaluate overall progress. Orders Orders: 2. Atypical chest pain R07.89 DELBERT Wong Patient had one brief episode of chest pain. She states being able to carry out cardiac rehab without any symptoms. At this time she was advised to continue to monitor this. If her symptoms worsen or progress with exercise, she was instructed to contact our office. 3. Hyperlipemia, mixed E78.2 DELBERT Wong Patient continues to follow-up with primary care physician for this. We will continue current cholesterol-lowering medication. 4. Type 2 diabetes mellitus without complication, without long-term current use of insulin E11.9; E11.9; E11.9; E11.9 DELBERT Wong Patient will continue follow-up with primary care physician for this. We will not make any medication regimen changes. 5. Cigarette nicotine dependence without complication F17.210; F17.210 DELBERT Wong Patient continues to smoke. She received extensive education regarding the health benefits of smoking cessation. We will continue to support and encourage smoking cessation. Plan Detail Other Orders Orders: Other Medications New: Refilled: Additional Comments - HAWA MelvinC Discussed the above patient with Dr. Davila, he agrees with the plan of care. Thank you for allowing us to participate in the patients plan of care, if you have any questions please do not hesitate to call. This note was generated using a voice recognition system and there may be incorrect words, spelling or punctuation that were not noted when reviewing the office note prior to saving. Follow Up 4 Months (R) 10/03/17 1439 <Electronically signed by Patricia MANDUJANO> Date Patricia SHAIKHC 10/03/17 1649<Electronically signed by Isac Davila MD> Cosigner Signature: Date (if applicable) Isac Davila MD CC: Olivier Esqueda MD CNCO Observed: 12/30/2017 Status: COMPLETED Source: [place] 2:08 PM [facility] [place] REPOSITORY [facility] ID: [id number] Author: Mammography Coordinator Service: (none) Author Type: Physician Type: Letter Filed: 12/31/2017 11:32 PM Note Text: December 30, 2017 PID: [id number] Caty Pack [address] [place] [address] Dear Ms. Pack, We are pleased to inform you that the results of your recent breast imaging exam on 12/30/2017 are normal. Early detection of cancer is very important. We also understand recommendations regarding breast cancer screening are controversial. Please discuss with your primary care provider which strategy is best for you and whether a mammogram is right for you. Your imaging studies and report will be kept on file at [facility] as part of your permanent medical record and are available for your continuing care. Thank you for allowing us to help in meeting your health care needs. Sincerely, Dr. Vera Interpreting Radiologist [facility] (Normal over 40) PROGRESS Observed: 12/30/2017 Status: COMPLETED Source: [place] 1:37 PM [facility] REPOSITORY HNO ID: [id number] Author: Meaghan Raymond Service: (none) Author Type: (none) Type: Progress Notes Filed: 12/30/2017 1:38 PM Note Text: Radiology Service Progress Note PATIENT NAME: Caty Pack DATE OF SERVICE: December 30, 2017 TIME: 1:37 PM PATIENT IDENTITY VERIFICATION COMPLETED USING TWO (2) METHODS: Patient confirmed name verbally and Date of . PATIENT GENDER DATA: Female. status: : No status: NO. PATIENT RELEVANT IMPLANT DATA REVIEWED: Not Applicable RADIOLOGY DEPARTMENT: [facility] DATA: Not applicable SIGNED BY: Meaghan Raymond December 30, 2017 1:37 PM BROOK SCREENING Observed: 12/30/2017 Status: F Source: [place] 1:34 PM [facility] REPOSITORY * * *Final Report* * * DATE OF EXAM: Dec 30 2017 1:34PM [facility] [id number] - [facility] SCREENING / PROCEDURE REASON: Encounter for screening mammogram for malignant neoplasm of breast * * * * Physician Interpretation * * * * RESULT: #[id number] - BROOK SCREENING BILATERAL DIGITAL SCREENING MAMMOGRAM WITH CAD: 12/30/2017 HISTORY: Encounter For Screening Mammogram For Malignant Neoplasm Of Breast\ Screening Mammogram - patient reports NO breast symptoms /priors available for comparison /SEE TECH NOTE. RESULT: TECHNIQUE: The study was acquired using full field digital technology and interpreted from soft copy. Current study was also evaluated with a Computer Aided Detection (CAD). Comparison is made to exams dated: 10/31/2016 mammogram - [facility], 10/27/2015 mammogram - [facility], 09/23/2015 mammogram, and 09/22/2014 mammogram - [facility]. There are scattered fibroglandular elements in both breasts. There is a biopsy clip in the right breast. No significant masses, calcifications, or other findings are seen in either breast. There has been no significant interval change. IMPRESSION: NEGATIVE There is no mammographic evidence of malignancy.A 1 year screening mammogram is recommended. Lauren Vera M.D. cp/penrad:12/30/2017 14:08:17 Concession Worker: Meaghan Ngo RTMarliR)(M), [facility] letter sent: Normal over 40 Mammogram BI-RADS: 1 Negative Cut Order Hand: Jefferson Transcribe Date/Time: Dec 30 2017 1:22P Dictated by: LAUREN VERA MD This examination was interpreted and the report reviewed and electronically signed by: LAUREN VERA MD on Dec 30 2017 2:08PM EST [id number] PROGRESS Observed: 12/27/2017 Status: COMPLETED Source: [place] 9:58 AM [facility] REPOSITORY HNO ID: [id number] Author: Feng Tejada Service: (none) Author Type: Physician Type: Progress Notes Filed: 01/08/2018 11:32 PM Note Text: HISTORY Caty Pack is a 57 year old lady here for yearly exam and appointment to establish with me. PCP has been Darwin Esqueda MD. Reviewed history, meds and labs. PAST MEDICAL HISTORY Diagnosis Date - Allergic rhinitis, cause unspecified Allergic rhinitis - Arthritis - Asthma - Benign neoplasm of colon - Chronic depression 05/07/2011 - Chronic insomnia 05/07/2011 - Coronary artery disease - Dermatophytosis of nail 06/14/2010 - Diarrhea - DM (diabetes mellitus) (HCC) - GERD (gastroesophageal reflux disease) 11/21/2009 - Heart attack (HCC) - Knee joint replacement by other means 12/15/2012 - Pneumonia 2008 Hosp 8 days [facility]. - Snoring - Syncope - Tobacco abuse - Unspecified essential hypertension Current Outpatient Prescriptions: colestipol (COLESTID) 1 gram tablet Take 2 tablets by mouth once daily. cholecalciferol, Vitamin D3, (VITAMIN D3) 50,000 unit cap capsule Take 1 capsule by mouth once each week. pravastatin (PRAVACHOL) 40 mg tablet TAKE 1 TABLET ONCE DAILY pantoprazole DR (PROTONIX) 40 mg tablet Take 1 tablet by mouth daily before breakfast. Take on empty stomach, 1/2 hr before meal. aspirin, enteric coated (ECOTRIN LOW STRENGTH) 81 mg EC tablet Take 1 tablet by mouth once daily. clopidogrel (PLAVIX) 75 mg tablet Take 1 tablet by mouth once daily. metoprolol tartrate, short acting, (LOPRESSOR) 25 mg tablet Take 0.5 tablets by mouth twice daily. traZODone (DESYREL) 100 mg tablet Take 1.5 tablets by mouth daily at bedtime. metFORMIN (GLUCOPHAGE) 1,000 mg tablet Take 1 tablet by mouth twice daily with meals. albuterol HFA (PROVENTIL HFA, VENTOLIN HFA) 90 mcg/actuation inhaler Inhale 2 Puffs as instructed every 6 hours as needed for Wheezing/Shortness of Breath. blood sugar diagnostic (ACCU-CHEK SMARTVIEW TEST STRIP) test strip 1 Strip once daily. For diabetes mellitus no insulin. Lancets (ACCU-CHEK SOFTCLIX LANCETS) lancets Test blood sugar(s) 1 times daily. Dx: 250.00. Insulin: No melatonin 3 mg ORAL Tab Take 3 mg by mouth daily at bedtime. No current facility-administered medications for this visit. ALLERGIES Allergen Reactions - Carbamazepine Diarrhea - Crestor [Rosuvastat* Other: See Comments Myalgia, arthralgia. - Demerol [Meperidine* GI Upset, Vomiting - Diltiazem Rash, Other: See Comments Chest pain, dark urine, rash. - Levaquin [Levofloxa* GI Upset, Vomiting - Tetracycline GI Upset - Tramadol Diarrhea FAMILY HISTORY Problem Relation Age of Onset - Diabetes Mother - Heart Mother - Stroke Mother - Cancer Father breast cancer. - Arthritis Brother - Heart Brother - Diabetes Brother - Arthritis Maternal Grandmother - Breast Cancer Paternal Grandfather Dad's dad. 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 (11/06/17) Alcohol use: No Comment: OCC Drug use: No Sexual activity: Yes Social History Narrative Not working any longer. Disability from arthritis since ~2009. REVIEW OF SYSTEMS Aside from above, Constitutional, HEENT, CV, PULM, GI, , PSYCH, DERM, HEM/ONC, NEURO negative. PHYSICAL EXAMINATION: Blood pressure 100/58, pulse 72, resp. rate 16, height 163.8 cm (5' 4.5), weight 85.7 kg (189 lb), last menstrual period 03/29/2006. General appearance: well appearing, in no acute distress, well-hydrated, well nourished Skin: Skin color, texture, turgor normal. No significant rashes or lesions. Head: Normal Eyes: Anicteric sclera. Pupils are equally round and reactive to light. Extraocular movements are intact. Ears: External ears normal. Canals clear. TM's unremarkable. Nose/Sinuses: negative Oropharynx: Lips, mucosa, and tongue normal. Teeth and gums normal. Oropharynx normal. Neck: Neck supple, no adenopathy; thyroid symmetric, normal size, no bruits. Lungs: Lungs clear to auscultation Heart: negative. RRR without murmur, gallop, or rubs. No ectopy. Abdomen: Abdomen soft, non-tender. Bowel sounds normal. No masses, organomegaly Extremities: Extremities normal. No deformities, edema, or skin discoloration. Good capillary refill. Musculoskeletal: grossly normal Peripheral pulses: Normal Neuro: Gait normal. Reflexes normal and symmetric. Sensation grossly intact. No gross focal neurological deficits. Labs reviewed. Component Latest Ref Rng AND Units 10/09/2017 10/31/2017 10/31/2017 12/16/2017 11:04 AM 11:04 AM Glucose 74 - 99 mg/dL 153 (H) BUN 7 - 21 mg/dL 11 Creatinine 0.58 - 0.96 mg/dL 0.77 Sodium 136 - 144 mmol/L 142 Potassium 3.7 - 5.1 mmol/L 4.2 Chloride 97 - 105 mmol/L 102 CO2 22 - 30 mmol/L 26 Anion Gap 9 - 18 mmol/L 14 Calcium 8.5 - 10.2 mg/dL 8.8 eGFR- >60 eGFR-All Other Races . >60 Cholesterol, Total <200 mg/dL 202 (H) Triglyceride <150 mg/dL 419 (H) HDL Cholesterol >39 mg/dL 37 (L) LDL Cholesterol <100 mg/dL Unable to calculate due to increased Triglycerides. See LDL-Chol, Direct. Non HDL Cholesterol <130 mg/dL 165 (H) Fasting Time hrs 14 VLDL Cholesterol <30 mg/dL Unable to calculate due to increased Triglycerides. See LDL-Chol, Direct. 54 (H) TC:HDL Ratio <5.10 5.46 (H) LDL:HDL Ratio <2.54 Unable to calculate due to elevated Triglycerides. Creatinine, Ur Random (UCRR) 20 - 300 mg/dL 95.2 Albumin, Urine Random 0.0 - 23.0 mg/L <12.0 Albumin/Creat Ratio 0 - 30 mg/g Not calculated Hemoglobin A1C 4.3 - 5.6 % 6.6 (H) Estimated Average Glucose mg/dL 143 LDL Cholesterol, Direct <100 mg/dL 111 (H) Vitamin D 25 Hydroxy 31.0 - 80.0 ng/mL 9.5 (L) 8.8 (L) ASSESSMENT AND PLAN See diagnoses and orders Encounter Diagnosis ICD-10-CM 1. Well controlled type 2 diabetes mellitus (HCC) E11.9 HGB A1C BASIC METABOLIC PNL 2. Chronic insomnia F51.04 traZODone (DESYREL) 100 mg tablet 3. Hyperlipidemia with target LDL less than 70 E78.5 LIPID PANEL BASIC 4. Essential hypertension I10 BASIC METABOLIC PNL CBC 5. Vitamin D deficiency E55.9 VITAMIN D 25 HYDROXY 6. Gastroesophageal reflux disease without esophagitis K21.9 ranitidine (ZANTAC) 150 mg tablet 7. Rotator cuff disorder, left M67.912 needs surgery but had to put off 8. Visit for screening mammogram Z12.31 BROOK SCREENING 57 year old lady here to be formally established with me. Above issues addressed with patient. Patient involved in shared decision making for management of her medical issues. History and medications reviewed. Epic updated as needed Refills taken care of and meds adjusted as indicated after reviewed history, exam and labs. Health Maintenance reviewed. Updated record and/or ordered tests as recorded. Encouraged on efforts at healthy diet and regular exercise and adequate sleep. Stable on current meds. Further evaluation and treatment as indicated. Feng Tejada MD CNOV Observed: 12/27/2017 Status: COMPLETED Source: [place] 9:00 AM [facility] REPOSITORY Office Visit (INTMWS) CATY PACK ([id number]) 1960 F T Date Time Provider Department 12/27/17 9:00 AM FENG TEJADA During your visit today, we recorded the following information about you: Pulse Respiration Blood pressure Weight 72/minute 16/minute 100/58 85.7 kg Height 1.638 m Feng Tejada MD 01/08/2018 11:32 PM Signed HISTORY Caty Pack is a 57 year old lady here for yearly exam and appointment to establish with me. PCP has been Darwin Esqueda MD. Reviewed history, meds and labs. PAST MEDICAL HISTORY Diagnosis Date - Allergic rhinitis, cause unspecified Allergic rhinitis - Arthritis - Asthma - Benign neoplasm of colon - Chronic depression 05/07/2011 - Chronic insomnia 05/07/2011 - Coronary artery disease - Dermatophytosis of nail 06/14/2010 - Diarrhea - DM (diabetes mellitus) (HCC) - GERD (gastroesophageal reflux disease) 11/21/2009 - Heart attack (HCC) - Knee joint replacement by other means 12/15/2012 - Pneumonia 2008 Hosp 8 days [facility]. - Snoring - Syncope - Tobacco abuse - Unspecified essential hypertension Current Outpatient Prescriptions: colestipol (COLESTID) 1 gram tablet Take 2 tablets by mouth once daily. cholecalciferol, Vitamin D3, (VITAMIN D3) 50,000 unit cap capsule Take 1 capsule by mouth once each week. pravastatin (PRAVACHOL) 40 mg tablet TAKE 1 TABLET ONCE DAILY pantoprazole DR (PROTONIX) 40 mg tablet Take 1 tablet by mouth daily before breakfast. Take on empty stomach, 1/2 hr before meal. aspirin, enteric coated (ECOTRIN LOW STRENGTH) 81 mg EC tablet Take 1 tablet by mouth once daily. clopidogrel (PLAVIX) 75 mg tablet Take 1 tablet by mouth once daily. metoprolol tartrate, short acting, (LOPRESSOR) 25 mg tablet Take 0.5 tablets by mouth twice daily. traZODone (DESYREL) 100 mg tablet Take 1.5 tablets by mouth daily at bedtime. metFORMIN (GLUCOPHAGE) 1,000 mg tablet Take 1 tablet by mouth twice daily with meals. albuterol HFA (PROVENTIL HFA, VENTOLIN HFA) 90 mcg/actuation inhaler Inhale 2 Puffs as instructed every 6 hours as needed for Wheezing/Shortness of Breath. blood sugar diagnostic (ACCU-CHEK SMARTVIEW TEST STRIP) test strip 1 Strip once daily. For diabetes mellitus no insulin. Lancets (ACCU-CHEK SOFTCLIX LANCETS) lancets Test blood sugar(s) 1 times daily. Dx: 250.00. Insulin: No melatonin 3 mg ORAL Tab Take 3 mg by mouth daily at bedtime. No current facility-administered medications for this visit. ALLERGIES Allergen Reactions - Carbamazepine Diarrhea - Crestor [Rosuvastat* Other: See Comments Myalgia, arthralgia. - Demerol [Meperidine* GI Upset, Vomiting - Diltiazem Rash, Other: See Comments Chest pain, dark urine, rash. - Levaquin [Levofloxa* GI Upset, Vomiting - Tetracycline GI Upset - Tramadol Diarrhea FAMILY HISTORY Problem Relation Age of Onset - Diabetes Mother - Heart Mother - Stroke Mother - Cancer Father breast cancer. - Arthritis Brother - Heart Brother - Diabetes Brother - Arthritis Maternal Grandmother - Breast Cancer Paternal Grandfather Dad's dad. 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 (11/06/17) Alcohol use: No Comment: OCC Drug use: No Sexual activity: Yes Social History Narrative Not working any longer. Disability from arthritis since ~2009. REVIEW OF SYSTEMS Aside from above, Constitutional, HEENT, CV, PULM, GI, , PSYCH, DERM, HEM/ONC, NEURO negative. PHYSICAL EXAMINATION: Blood pressure 100/58, pulse 72, resp. rate 16, height 163.8 cm (5' 4.5ANDquot;), weight 85.7 kg (189 lb), last menstrual period 03/29/2006. General appearance: well appearing, in no acute distress, well-hydrated, well nourished Skin: Skin color, texture, turgor normal. No significant rashes or lesions. Head: Normal Eyes: Anicteric sclera. Pupils are equally round and reactive to light. Extraocular movements are intact. Ears: External ears normal. Canals clear. TM's unremarkable. Nose/Sinuses: negative Oropharynx: Lips, mucosa, and tongue normal. Teeth and gums normal. Oropharynx normal. Neck: Neck supple, no adenopathy; thyroid symmetric, normal size, no bruits. Lungs: Lungs clear to auscultation Heart: negative. RRR without murmur, gallop, or rubs. No ectopy. Abdomen: Abdomen soft, non-tender. Bowel sounds normal. No masses, organomegaly Extremities: Extremities normal. No deformities, edema, or skin discoloration. Good capillary refill. Musculoskeletal: grossly normal Peripheral pulses: Normal Neuro: Gait normal. Reflexes normal and symmetric. Sensation grossly intact. No gross focal neurological deficits. Labs reviewed. Component Latest Ref Rng ANDamp; Units 10/09/2017 10/31/2017 10/31/2017 12/16/2017 11:04 AM 11:04 AM Glucose 74 - 99 mg/dL 153 (H) BUN 7 - 21 mg/dL 11 Creatinine 0.58 - 0.96 mg/dL 0.77 Sodium 136 - 144 mmol/L 142 Potassium 3.7 - 5.1 mmol/L 4.2 Chloride 97 - 105 mmol/L 102 CO2 22 - 30 mmol/L 26 Anion Gap 9 - 18 mmol/L 14 Calcium 8.5 - 10.2 mg/dL 8.8 eGFR- ANDgt;60 eGFR-All Other Races . ANDgt;60 Cholesterol, Total ANDlt;200 mg/dL 202 (H) Triglyceride ANDlt;150 mg/dL 419 (H) HDL Cholesterol ANDgt;39 mg/dL 37 (L) LDL Cholesterol ANDlt;100 mg/dL Unable to calculate due to increased Triglycerides. See LDL-Chol, Direct. Non HDL Cholesterol ANDlt;130 mg/dL 165 (H) Fasting Time hrs 14 VLDL Cholesterol ANDlt;30 mg/dL Unable to calculate due to increased Triglycerides. See LDL-Chol, Direct. 54 (H) TC:HDL Ratio ANDlt;5.10 5.46 (H) LDL:HDL Ratio ANDlt;2.54 Unable to calculate due to elevated Triglycerides. Creatinine, Ur Random (UCRR) 20 - 300 mg/dL 95.2 Albumin, Urine Random 0.0 - 23.0 mg/L ANDlt;12.0 Albumin/Creat Ratio 0 - 30 mg/g Not calculated Hemoglobin A1C 4.3 - 5.6 % 6.6 (H) Estimated Average Glucose mg/dL 143 LDL Cholesterol, Direct ANDlt;100 mg/dL 111 (H) Vitamin D 25 Hydroxy 31.0 - 80.0 ng/mL 9.5 (L) 8.8 (L) ASSESSMENT AND PLAN See diagnoses and orders Encounter Diagnosis ICD-10-CM 1. Well controlled type 2 diabetes mellitus (HCC) E11.9 HGB A1C BASIC METABOLIC PNL 2. Chronic insomnia F51.04 traZODone (DESYREL) 100 mg tablet 3. Hyperlipidemia with target LDL less than 70 E78.5 LIPID PANEL BASIC 4. Essential hypertension I10 BASIC METABOLIC PNL CBC 5. Vitamin D deficiency E55.9 VITAMIN D 25 HYDROXY 6. Gastroesophageal reflux disease without esophagitis K21.9 ranitidine (ZANTAC) 150 mg tablet 7. Rotator cuff disorder, left M67.912 needs surgery but had to put off 8. Visit for screening mammogram Z12.31 [facility] 57 year old lady here to be formally established with me. Above issues addressed with patient. Patient involved in shared decision making for management of her medical issues. History and medications reviewed. Epic updated as needed Refills taken care of and meds adjusted as indicated after reviewed history, exam and labs. Health Maintenance reviewed. Updated record and/or ordered tests as recorded. Encouraged on efforts at healthy diet and regular exercise and adequate sleep. Stable on current meds. Further evaluation and treatment as indicated. Feng Tejada MD Referring Provider: SELF [[id number]] Allergies As of Date: 12/27/2017 Noted Allergy Reaction CARBAMAZEPINE 10/31/2015 6 - Diarrhea CRESTOR (ROSUVASTATIN CALCIUM) 01/24/2011 14 - Other: See Comments Comments: Myalgia, arthralgia. DEMEROL (MEPERIDINE (PF)) 11/21/2009 8 - GI Upset 11 - Vomiting DILTIAZEM 10/19/2015 2 - Rash 14 - Other: See Comments Comments: Chest pain, dark urine, rash. LEVAQUIN (LEVOFLOXACIN) 11/21/2009 8 - GI Upset 11 - Vomiting TETRACYCLINE 02/14/2006 8 - GI Upset TRAMADOL 04/28/2015 6 - Diarrhea Date Reviewed: 12/27/2017 Reviewed by: Astrid Mariee Bankruptcy Manager - Fully Assessed Reason for Visit: Establish Care [42] Primary Visit Diagnosis:Well controlled type 2 diabetes mellitus (HCC) [E11.9] Other Visit Diagnoses:Chronic insomnia [F51.04] Hyperlipidemia with target LDL less than 70 [E78.5] Essential hypertension [I10] Vitamin D deficiency [E55.9] Gastroesophageal reflux disease without esophagitis [K21.9] Rotator cuff disorder, left [M67.912] Comment:needs surgery but had to put off Visit for screening mammogram [Z12.31] Order(s):[facility] [0758048] Order #: [id number] FUTURE metFORMIN (GLUCOPHAGE) 1,000 mg tabletTake 1 tablet by mouth twice daily with meals.Disp: 180 tabletRfl: 3 traZODone (DESYREL) 100 mg tabletTake 1.5 tablets by mouth daily at bedtime.Disp: 135 tabletRfl: 3 albuterol HFA (PROVENTIL HFA, VENTOLIN HFA) 90 mcg/actuation inhalerInhale 2 Puffs as instructed every 6 hours as needed for Wheezing/Shortness of Breath.Disp: 1 InhalerRfl: 5 HGB A1C [GRBYC6Y] Order #: [id number] FUTURE VITAMIN D 25 HYDROXY [SQVITD] Order #: [id number] FUTURE LIPID PANEL BASIC [SQLIPB] Order #: [id number] FUTURE BASIC METABOLIC PNL [SQBMP] Order #: [id number] FUTURE CBC [SQCBC] Order #: [id number] FUTURE ranitidine (ZANTAC) 150 mg tabletTake 1 tablet by mouth twice daily. As directed.Disp: 180 tabletRfl: 3 Prescriptions as of 12/27/2017 Sig: METFORMIN 1,000 MG TABLET Take 1 tablet by mouth twice * TRAZODONE 100 MG TABLET Take 1.5 tablets by mouth neeta* ALBUTEROL SULFATE HFA 90 MCG/* Inhale 2 Puffs as instructed * RANITIDINE 150 MG TABLET Take 1 tablet by mouth twice * COLESTIPOL 1 GRAM TABLET Take 2 tablets by mouth once * CHOLECALCIFEROL (VITAMIN D3) * Take 1 capsule by mouth once * PRAVASTATIN 40 MG TABLET TAKE 1 TABLET ONCE DAILY PANTOPRAZOLE 40 MG TABLET,DEL* Take 1 tablet by mouth daily * ASPIRIN 81 MG TABLET,DELAYED * Take 1 tablet by mouth once d* CLOPIDOGREL 75 MG TABLET Take 1 tablet by mouth once d* METOPROLOL TARTRATE 25 MG TAB* Take 0.5 tablets by mouth twi* BLOOD SUGAR DIAGNOSTIC STRIPS 1 Strip once daily. For diabe* LANCETS Test blood sugar(s) 1 times d* * MELATONIN 3 MG TABLET Take 3 mg by mouth daily at b* Problem List As Of Date 12/27/2017 Noted Resolved ALLERGIC RHINITIS NOS [J30.9] More... Diabetes mellitus [E11.9] INVALID FOR*05/12/2012 Hyperlipidemia with target LDL less than 70 [E7*INVALID FOR* More... GERD (Gastroesophageal Reflux Disease) [K21.9] INVALID FOR* Degenerative Arthritis of Knee [M17.10] INVALID FOR* Well controlled type 2 diabetes mellitus (HCC) *INVALID FOR* Pain in limb [M79.609] INVALID FOR*04/24/2017 Dermatophytosis of nail [B35.1] INVALID FOR*04/24/2017 Essential hypertension [I10] INVALID FOR* Diarrhea [R19.7] 04/24/2017 Benign neoplasm of colon [D12.6] INVALID FOR*04/24/2017 Chronic depression [F32.9] INVALID FOR*04/24/2017 Chronic insomnia [F51.04] INVALID FOR*04/24/2017 Knee pain [M25.569] INVALID FOR*11/26/2012 Continuous tobacco abuse [Z72.0] INVALID FOR* Osteoarthrosis, unspecified whether generalized*INVALID FOR*11/24/2012 Knee joint replacement by other means [Z96.659] INVALID FOR*04/24/2017 Statin intolerance [Z78.9] INVALID FOR* Neuropathic pain [M79.2] INVALID FOR* Abnormal mammogram [R92.8] INVALID FOR* Encounter for long-term (current) use of medica*INVALID FOR* More... Functional dyspepsia [K30] INVALID FOR* More... History of colonic polyps [Z86.010] INVALID FOR* More... Gastroesophageal reflux disease [K21.9] INVALID FOR* More... Prescriptions ordered this encounter Disp Refills Start End METFORMIN 1,000 MG TABLET 180 * 3 12/27/2017 Route: ORAL Sig: Take 1 tablet by mouth twice daily with meals. TRAZODONE 100 MG TABLET 135 * 3 12/27/2017 Route: ORAL Sig: Take 1.5 tablets by mouth daily at bedtime. ALBUTEROL SULFATE HFA 90 MCG/ACTUATI* 1 In* 5 12/27/2017 Route: INHALATION Sig: Inhale 2 Puffs as instructed every 6 hours as needed for Wheezing/Shortness of Breath. RANITIDINE 150 MG TABLET 180 * 3 12/27/2017 Cmt: Aware that patient on pantoprazole--needs this added to control GERD Route: ORAL Sig: Take 1 tablet by mouth twice daily. As directed. Medications Discontinued During This Encounter metFORMIN (GLUCOPHAGE) 1,000 mg tabl* 180 * 3 10/16/2016 12/27/2017 Route: ORAL Sig: Take 1 tablet by mouth twice daily with meals. Disc: Reason for discontinue is not on file. traZODone (DESYREL) 100 mg tablet 135 * 3 10/16/2016 12/27/2017 Route: ORAL Sig: Take 1.5 tablets by mouth daily at bedtime. Disc: Reason for discontinue is not on file. albuterol HFA (PROVENTIL HFA, VENTOL* 1 In* 5 09/26/2015 12/27/2017 Route: INHALATION Sig: Inhale 2 Puffs as instructed every 6 hours as needed for Wheezing/Shortness of Breath. Disc: Reason for discontinue is not on file. Disposition: Return in about 4 months (around 04/28/2018) for 4 months follow up, With labs prior. Follow-up and Disposition History Recorded Encounter Status:Closed by FENG TEJADA MD on 01/08/18 PROGRESS Observed: 12/19/2017 Status: COMPLETED Source: [place] 12:44 PM [facility] [place] REPOSITORY HNO ID: [id number] Author: Miguel Mccain Service: (none) Author Type: Nurse Practitioner Type: Progress Notes Filed: 12/19/2017 1:11 PM Note Text: Caty Jacksonpps a 57 year old female who is returning for follow up regarding looser stools and dyspepsia. I saw the patient on 11/06/17. That note has been reviewed. The patient was seen by Dr. George for upper endoscopy and surveillance colonoscopy 11/08/17. The procedure report has been reviewed and findings as follows: EGD Impression: - Normal esophagus. ? - Erythematous mucosa in the antrum. Biopsied. ? - Normal examined duodenum. Colonoscopy Impression:- One 8 mm polyp in the ascending colon, removed with a ? cold snare. Resected and retrieved. ? - One 11 mm polyp in the sigmoid colon, removed using ? injection-lift and a hot snare. Resected and retrieved. ? - One 7 mm polyp in the rectum, removed with a cold ? snare. Resected and retrieved. FINAL DIAGNOSIS 1. Stomach, antrum, biopsy (A) - Gastric mucosa with no diagnostic alteration. - No histomorphologic evidence of Helicobacter pylori. 2. Colon, ascending polyp, polypectomy (B) - Tubular adenoma. 3. Colon, sigmoid polyp, polypectomy (C) - Cauterized colonic mucosa suggestive of hyperplastic polyp. 4. Rectal polyp, polypectomy (D) - Tubular adenoma. Presenting complaint: The patient returns today noting that her loose stools have been going on for years. Remote cholecystectomy. Will try colestipol and see if that helps. Notes that pantoprazole isn't as effective as Nexium was. I have offered to increase or add something, but she declines at the moment stating that she can deal with that. We can revisit that when we get her bowel routine improved. REVIEW OF SYSTEMS: GENERAL: No weight loss, malaise or fevers GI: The patient states that her appetite has been adequate. She does get hungry. She denies dysphagia and denies odynophagia. There has partially been indigestion without heartburn. There has not been regurgitation. Bowel habits have been regular. There has partially been diarrhea. There has not been constipation. No new or worsening abdominal pain. All other reviewed and negative other than HPI. PAST MEDICAL HISTORY Diagnosis Date - Allergic rhinitis, cause unspecified Allergic rhinitis - Arthritis - Asthma - Benign neoplasm of colon - Chronic depression 05/07/2011 - Chronic insomnia 05/07/2011 - Coronary artery disease - Dermatophytosis of nail 06/14/2010 - Diarrhea - DM (diabetes mellitus) (HCC) - GERD (gastroesophageal reflux disease) 11/21/2009 - Heart attack (HCC) - Knee joint replacement by other means 12/15/2012 - Pneumonia 2009 Hosp 8 days [facility]. - Snoring - Syncope - Tobacco abuse - Unspecified essential hypertension PAST SURGICAL HISTORY Procedure Laterality Date - BREAST BIOPSY ~1999 x2. couple abnormal mammogram. NO acner. - BREAST BIOPSY W/STEREOTACTIC GUIDANCE Right 16 - COLONOSCOP W/ OR W/O [facility] SPEC 12/09/2017 Colonoscopy repeat 3 years - COLONOSCOPY 02/14/07 diverticulosis AND hyperpleastic polyp - COLONOSCOPY W/BX 02/15/11 - EGD W/O OR W/BRUSH/WASH 12/09/2017 EGD - PAST SURGICAL HISTORY OF 11/24/2012 left total knee arthroplasty - PAST SURGICAL HISTORY OF 2013 right shoulder - REMOVAL GALLBLADDER - REMOVAL OF TONSILS,<10 Y/O - REMOVE EAR CANAL LESION(S) left - STENTS (SPECIFY) cardiac stents X 3 - THYROID Removed half of thyroid - TOTAL ABDOM HYSTERECTOMY 2004 - TOTAL KNEE REPLACEMENT Bilateral 12/27/2014 [facility]. FAMILY HISTORY Problem Relation Age of Onset - Diabetes Mother - Heart Mother - Stroke Mother - Cancer Father breast cancer. - Arthritis Brother - Heart Brother - Diabetes Brother - Arthritis Maternal Grandmother - Breast Cancer Paternal Grandfather Dad's dad. - Breast Cancer Paternal Uncle dad's brother - DVT Brother Current Outpatient Prescriptions: cholecalciferol, Vitamin D3, (VITAMIN D3) 50,000 unit cap capsule Take 1 capsule by mouth once each week. Disp: 12 capsule Rfl: 0 pravastatin (PRAVACHOL) 40 mg tablet TAKE 1 TABLET ONCE DAILY Disp: 90 tablet Rfl: [address] (PROTONIX) 40 mg tablet Take 1 tablet by mouth daily before breakfast. Take on empty stomach, 1/2 hr before meal. Disp: Rfl: 0 aspirin, enteric coated (ECOTRIN LOW STRENGTH) 81 mg EC tablet Take 1 tablet by mouth once daily. Disp: Rfl: 0 clopidogrel (PLAVIX) 75 mg tablet Take 1 tablet by mouth once daily. Disp: 30 tablet Rfl: 11 metoprolol tartrate, short acting, (LOPRESSOR) 25 mg tablet Take 0.5 tablets by mouth twice daily. Disp: Rfl: traZODone (DESYREL) 100 mg tablet Take 1.5 tablets by mouth daily at bedtime. Disp: 135 tablet Rfl: 3 metFORMIN (GLUCOPHAGE) 1,000 mg tablet Take 1 tablet by mouth twice daily with meals. Disp: 180 tablet Rfl: 3 albuterol HFA (PROVENTIL HFA, VENTOLIN HFA) 90 mcg/actuation inhaler Inhale 2 Puffs as instructed every 6 hours as needed for Wheezing/Shortness of Breath. Disp: 1 Inhaler Rfl: 5 blood sugar diagnostic (ACCU-CHEK SMARTVIEW TEST STRIP) test strip 1 Strip once daily. For diabetes mellitus no insulin. Disp: 50 Each Rfl: 5 Lancets (ACCU-CHEK SOFTCLIX LANCETS) lancets Test blood sugar(s) 1 times daily. Dx: 250.00. Insulin: No Disp: 1 Each Rfl: 11 melatonin 3 mg ORAL Tab Take 3 mg by mouth daily at bedtime. Disp: Rfl: No current facility-administered medications for this visit. SOCIAL HISTORY: Reviewed. PHYSICAL EXAMINATION: Blood pressure 111/73, pulse 64, height 163.8 cm (5' 4.5), weight 85.5 kg (188 lb 9.6 oz), last menstrual period 03/29/2006. General Appearance: Well appearing, alert, in no acute distress, well-hydrated, well nourished. Skin: Skin color, texture, turgor normal, no suspicious rashes or lesions. Eyes: Anicteric sclera. Lungs: Lungs clear to auscultation. Heart: RRR without murmur. Abdomen: Abdomen soft, non-tender. Bowel sounds normal. No masses, organomegaly. Extremities: No deformities, edema. Impression: loose stools 2)dyspepsia History of polyps - she'll be up for 3 year recall. Plan: Continue pantoprazole. Start colestipol. She will report back via MyChart and we can adjust the dose as needed. She agrees with this plan. I have personally interviewed and examined this patient. I have reviewed the information that the MA entered for this encounter. Greater than 25 minutes total time used this visit to review old chart, review new information, update current history and evaluate patient. A majority of the time was spent in discussion and counseling to formulate the plan. Miguel Mccain RN NEWS SPECIALIST CNOV Observed: 12/19/2017 Status: COMPLETED Source: [place] 12:40 PM [facility] REPOSITORY Office Visit (GASTWC) CATY PACK ([id number]) 1960 F [facility] Date Time Provider Department 12/19/17 12:40 PM MIGUEL MCCAIN (JODIE) [facility] During your visit today, we recorded the following information about you: Pulse Blood pressure Weight Height 64/minute 111/73 85.5 kg 1.638 m Miguel Mccain RN NEWS SPECIALIST 12/19/2017 1:11 PM Signed Caty Pack a 57 year old female who is returning for follow up regarding looser stools and dyspepsia. I saw the patient on 11/06/17. That note has been reviewed. The patient was seen by Dr. George for upper endoscopy and surveillance colonoscopy 11/08/17. The procedure report has been reviewed and findings as follows: EGD Impression: - Normal esophagus. ? - Erythematous mucosa in the antrum. Biopsied. ? - Normal examined duodenum. Colonoscopy Impression:- One 8 mm polyp in the ascending colon, removed with a ? cold snare. Resected and retrieved. ? - One 11 mm polyp in the sigmoid colon, removed using ? injection-lift and a hot snare. Resected and retrieved. ? - One 7 mm polyp in the rectum, removed with a cold ? snare. Resected and retrieved. FINAL DIAGNOSIS 1. Stomach, antrum, biopsy (A) - Gastric mucosa with no diagnostic alteration. - No histomorphologic evidence of Helicobacter pylori. 2. Colon, ascending polyp, polypectomy (B) - Tubular adenoma. 3. Colon, sigmoid polyp, polypectomy (C) - Cauterized colonic mucosa suggestive of hyperplastic polyp. 4. Rectal polyp, polypectomy (D) - Tubular adenoma. Presenting complaint: The patient returns today noting that her loose stools have been going on for years. Remote cholecystectomy. Will try colestipol and see if that helps. Notes that pantoprazole isn't as effective as Nexium was. I have offered to increase or add something, but she declines at the moment stating that she can deal with that. We can revisit that when we get her bowel routine improved. REVIEW OF SYSTEMS: GENERAL: No weight loss, malaise or fevers GI: The patient states that her appetite has been adequate. She does get hungry. She denies dysphagia and denies odynophagia. There has partially been indigestion without heartburn. There has not been regurgitation. Bowel habits have been regular. There has partially been diarrhea. There has not been constipation. No new or worsening abdominal pain. All other reviewed and negative other than HPI. PAST MEDICAL HISTORY Diagnosis Date - Allergic rhinitis, cause unspecified Allergic rhinitis - Arthritis - Asthma - Benign neoplasm of colon - Chronic depression 05/07/2011 - Chronic insomnia 05/07/2011 - Coronary artery disease - Dermatophytosis of nail 06/14/2010 - Diarrhea - DM (diabetes mellitus) (HCC) - GERD (gastroesophageal reflux disease) 11/21/2009 - Heart attack (HCC) - Knee joint replacement by other means 12/15/2012 - Pneumonia 2008 Hosp 8 days [facility]. - Snoring - Syncope - Tobacco abuse - Unspecified essential hypertension PAST SURGICAL HISTORY Procedure Laterality Date - BREAST BIOPSY ~1999 x2. couple abnormal mammogram. NO acner. - BREAST BIOPSY W/STEREOTACTIC GUIDANCE Right 11-14-15 - COLONOSCOP W/ OR W/O [facility] SPEC 12/09/2017 Colonoscopy repeat 3 years - COLONOSCOPY 02/14/07 diverticulosis ANDamp; hyperpleastic polyp - COLONOSCOPY W/BX 02/15/11 - EGD W/O OR W/BRUSH/WASH 12/09/2017 EGD - PAST SURGICAL HISTORY OF 11/24/2012 left total knee arthroplasty - PAST SURGICAL HISTORY OF 2013 right shoulder - REMOVAL GALLBLADDER - REMOVAL OF TONSILS,ANDlt;10 Y/O - REMOVE EAR CANAL LESION(S) left - STENTS (SPECIFY) cardiac stents X 3 - THYROID Removed half of thyroid - TOTAL ABDOM HYSTERECTOMY 2004 - TOTAL KNEE REPLACEMENT Bilateral 12/27/2014 Dr [facility]. FAMILY HISTORY Problem Relation Age of Onset - Diabetes Mother - Heart Mother - Stroke Mother - Cancer Father breast cancer. - Arthritis Brother - Heart Brother - Diabetes Brother - Arthritis Maternal Grandmother - Breast Cancer Paternal Grandfather Dad's dad. - Breast Cancer Paternal Uncle dad's brother - DVT Brother Current Outpatient Prescriptions: cholecalciferol, Vitamin D3, (VITAMIN D3) 50,000 unit cap capsule Take 1 capsule by mouth once each week. Disp: 12 capsule Rfl: 0 pravastatin (PRAVACHOL) 40 mg tablet TAKE 1 TABLET ONCE DAILY Disp: 90 tablet Rfl: [address] (PROTONIX) 40 mg tablet Take 1 tablet by mouth daily before breakfast. Take on empty stomach, 1/2 hr before meal. Disp: Rfl: 0 aspirin, enteric coated (ECOTRIN LOW STRENGTH) 81 mg EC tablet Take 1 tablet by mouth once daily. Disp: Rfl: 0 clopidogrel (PLAVIX) 75 mg tablet Take 1 tablet by mouth once daily. Disp: 30 tablet Rfl: 11 metoprolol tartrate, short acting, (LOPRESSOR) 25 mg tablet Take 0.5 tablets by mouth twice daily. Disp: Rfl: traZODone (DESYREL) 100 mg tablet Take 1.5 tablets by mouth daily at bedtime. Disp: 135 tablet Rfl: 3 metFORMIN (GLUCOPHAGE) 1,000 mg tablet Take 1 tablet by mouth twice daily with meals. Disp: 180 tablet Rfl: 3 albuterol HFA (PROVENTIL HFA, VENTOLIN HFA) 90 mcg/actuation inhaler Inhale 2 Puffs as instructed every 6 hours as needed for Wheezing/Shortness of Breath. Disp: 1 Inhaler Rfl: 5 blood sugar diagnostic (ACCU-CHEK SMARTVIEW TEST STRIP) test strip 1 Strip once daily. For diabetes mellitus no insulin. Disp: 50 Each Rfl: 5 Lancets (ACCU-CHEK SOFTCLIX LANCETS) lancets Test blood sugar(s) 1 times daily. Dx: 250.00. Insulin: No Disp: 1 Each Rfl: 11 melatonin 3 mg ORAL Tab Take 3 mg by mouth daily at bedtime. Disp: Rfl: No current facility-administered medications for this visit. SOCIAL HISTORY: Reviewed. PHYSICAL EXAMINATION: Blood pressure 111/73, pulse 64, height 163.8 cm (5' 4.5ANDquot;), weight 85.5 kg (188 lb 9.6 oz), last menstrual period 03/29/2006. General Appearance: Well appearing, alert, in no acute distress, well-hydrated, well nourished. Skin: Skin color, texture, turgor normal, no suspicious rashes or lesions. Eyes: Anicteric sclera. Lungs: Lungs clear to auscultation. Heart: RRR without murmur. Abdomen: Abdomen soft, non-tender. Bowel sounds normal. No masses, organomegaly. Extremities: No deformities, edema. Impression: loose stools 2)dyspepsia History of polyps - she'll be up for 3 year recall. Plan: Continue pantoprazole. Start colestipol. She will report back via MyChart and we can adjust the dose as needed. She agrees with this plan. I have personally interviewed and examined this patient. I have reviewed the information that the MA entered for this encounter. Greater than 25 minutes total time used this visit to review old chart, review new information, update current history and evaluate patient. A majority of the time was spent in discussion and counseling to formulate the plan. Miguel Mccain RN NEWS SPECIALIST Miguel Mccain RN NEWS SPECIALIST 12/19/2017 1:01 PM Signed Continue pantoprazole. Start the new medication, taking 2 a day. You may divide the dose, if desired. This is to absorb some of the bile salts since your gallbladder is gone. We'll see if this helps with the loose stools. Touch base via MyChart to let me know how this is working. We can adjust accordingly. Referring Provider: MIGUEL MCCAIN ([employer]) [[id number]] Allergies As of Date: 12/19/2017 Noted Allergy Reaction CARBAMAZEPINE 10/31/2015 6 - Diarrhea CRESTOR (ROSUVASTATIN CALCIUM) 01/24/2011 14 - Other: See Comments Comments: Myalgia, arthralgia. DEMEROL (MEPERIDINE (PF)) 11/21/2009 8 - GI Upset 11 - Vomiting DILTIAZEM 10/19/2015 2 - Rash 14 - Other: See Comments Comments: Chest pain, dark urine, rash. LEVAQUIN (LEVOFLOXACIN) 11/21/2009 8 - GI Upset 11 - Vomiting TETRACYCLINE 02/14/2006 8 - GI Upset TRAMADOL 04/28/2015 6 - Diarrhea Date Reviewed: 12/19/2017 Reviewed by: Tamra Henderson MA - Fully Assessed Reason for Visit: Follow Up [171] Primary Visit Diagnosis:Functional diarrhea [K59.1] Other Visit Diagnosis:Functional dyspepsia [K30] Order(s):colestipol (COLESTID) 1 gram tabletTake 2 tablets by mouth once daily.Disp: 180 tabletRfl: 3 Prescriptions as of 12/19/2017 Sig: COLESTIPOL 1 GRAM TABLET Take 2 tablets by mouth once * CHOLECALCIFEROL (VITAMIN D3) * Take 1 capsule by mouth once * PRAVASTATIN 40 MG TABLET TAKE 1 TABLET ONCE DAILY PANTOPRAZOLE 40 MG TABLET,DEL* Take 1 tablet by mouth daily * ASPIRIN 81 MG TABLET,DELAYED * Take 1 tablet by mouth once d* CLOPIDOGREL 75 MG TABLET Take 1 tablet by mouth once d* METOPROLOL TARTRATE 25 MG TAB* Take 0.5 tablets by mouth twi* TRAZODONE 100 MG TABLET Take 1.5 tablets by mouth neeta* METFORMIN 1,000 MG TABLET Take 1 tablet by mouth twice * ALBUTEROL SULFATE HFA 90 MCG/* Inhale 2 Puffs as instructed * BLOOD SUGAR DIAGNOSTIC STRIPS 1 Strip once daily. For diabe* LANCETS Test blood sugar(s) 1 times d* * MELATONIN 3 MG TABLET Take 3 mg by mouth daily at b* Problem List As Of Date 12/19/2017 Noted Resolved ALLERGIC RHINITIS NOS [J30.9] More... Diabetes mellitus [E11.9] INVALID FOR*05/12/2012 Hyperlipidemia with target LDL less than 70 [E7*INVALID FOR* More... GERD (Gastroesophageal Reflux Disease) [K21.9] INVALID FOR* Degenerative Arthritis of Knee [M17.10] INVALID FOR* Well controlled type 2 diabetes mellitus (HCC) *INVALID FOR* Pain in limb [M79.609] INVALID FOR*04/24/2017 Dermatophytosis of nail [B35.1] INVALID FOR*04/24/2017 Essential hypertension [I10] INVALID FOR* Diarrhea [R19.7] 04/24/2017 Benign neoplasm of colon [D12.6] INVALID FOR*04/24/2017 Chronic depression [F32.9] INVALID FOR*04/24/2017 Chronic insomnia [F51.04] INVALID FOR*04/24/2017 Knee pain [M25.569] INVALID FOR*11/26/2012 Continuous tobacco abuse [Z72.0] INVALID FOR* Osteoarthrosis, unspecified whether generalized*INVALID FOR*11/24/2012 Knee joint replacement by other means [Z96.659] INVALID FOR*04/24/2017 Statin intolerance [Z78.9] INVALID FOR* Neuropathic pain [M79.2] INVALID FOR* Abnormal mammogram [R92.8] INVALID FOR* Encounter for long-term (current) use of medica*INVALID FOR* More... Functional dyspepsia [K30] INVALID FOR* More... History of colonic polyps [Z86.010] INVALID FOR* More... Gastroesophageal reflux disease [K21.9] INVALID FOR* More... Other instructions from your clinician: Continue pantoprazole. Start the new medication, taking 2 a day. You may divide the dose, if desired. This is to absorb some of the bile salts since your gallbladder is gone. We'll see if this helps with the loose stools. Touch base via MyChart to let me know how this is working. We can adjust accordingly. Prescriptions ordered this encounter Disp Refills Start End COLESTIPOL 1 GRAM TABLET 180 * 3 12/19/2017 Route: ORAL Sig: Take 2 tablets by mouth once daily. Encounter Status:Closed by MIGUEL MCCAIN CNP on 12/19/17 BASIC METABOLIC PANL Collected: 12/16/2017 Status: F Source: [place] 7:55 AM [facility] [place] REPOSITORY TYPE CODE TESTS RESULT OUT OF REFERENCE UNITS RANGE LAB GLU 74-99 mg/dL High Glucose 153 Result Comment: The [place] [employer] (ADA) provides guidance for cutoff values for fasting glucose and random glucose. The ADA defines fasting as no caloric intake for at least 8 hours. Fas ting plasma glucose results between 100 to 125 mg/dL indicate increased risk for diabetes (prediabetes). Fasting plasma glucose results greater than or equal to 126 mg/dL meet the criteria for diagnosis of diabetes. In the absence of unequivocal hyperglycemia, results should be confirmed by repeat testing. In a patient with classic symptoms of hyperglycemia or hyperglycemic crisis, random plasma glucose results greater than or equal to 200 mg/dL meet the criteria for diagnosis of diabetes. Reference: Standards of Medical Care in Diabetes 2016, [place] [employer]. Diabetes Care. 2016.39(Suppl 1). LAB BUN 7-21 mg/dL BUN 11 LAB CRET 0.58-0.96 mg/dL Creatinine 0.77 LAB NA 136-144 mmol/L Sodium 142 LAB K 3.7-5.1 mmol/L Potassium 4.2 LAB CL 97-105 mmol/L Chloride 102 LAB CO2 22-30 mmol/L CO2 26 LAB AGAP 9-18 mmol/L Anion Gap 14 LAB CA 8.5-10.2 mg/dL Calcium, Total 8.8 LAB GFRAA eGFR- Amer. >60 LAB GFRNAA . eGFR-All Other Races >60 Result Comment: eGFR (Estimated GFR) Units of measure: mL/min/1.73 meters squared eGFR is derived from the reexpressed MDRD Study equation using the following parameters: serum creatinine, age, gender and race. The creatinine assay has been calibrated to be traceable to IDMS. An eGFR <60 mL/min/1.73m2 for >3 months is consistent with chronic kidney disease. Refer to KDOQI guidelines for clinical interpretation. In patients with unstable renal function, e.g. those with acute kidney injury, the eGFR may not accurately reflect actual GFR. Performed By: #### BMP #### [facility] [address] [place] [id number] VITAMIN D 25 HYDROXY Collected: 12/16/2017 Status: F Source: [place] 7:52 AM [facility] REPOSITORY TYPE CODE TESTS RESULT OUT OF REFERENCE UNITS RANGE LAB VITD 31.0-80.0 ng/mL Low Vitamin D 25 8.8 Hydroxy Result Comment: Classification of 25 OH Vitamin D status: Insufficiency/Moderate Deficiency: < or = 30 ng/mL Sufficiency/Optimal Levels: 31 to 80 ng/mL Toxicity: > 100 ng/mL Test performed by chemiluminescent immunoassay. Performed By: #### VITD #### [facility] [address] [place] [id number] CNPN Observed: 12/13/2017 Status: COMPLETED Source: [place] 12:00 [facility] REPOSITORY Telephone (GASTTW) CATY PACK ([id number]) 1960 F T Date Time Provider Department 12/13/17 EVAN GEORGE During your visit today, we recorded the following information about you: Evan George MD 12/13/2017 7:07 AM Signed Colon polyps were tubular adenomas. Stomach biopsies were unremarkable Merry Hale RN, RN 12/13/2017 9:00 AM Signed Attempted to call pt regarding results. Left VM asking pt to call office back. Merry Hale RN December 13, 2017 9:00 AM Merry Hale RN, RN 12/13/2017 10:41 AM Signed Pt calling back; relayed message from Dr. George. Educated pt that she needs a repeat colonoscopy in 3 years for surveillance. Patient verbalizes understanding and has no other questions or concerns at this time. Merry Hale RN December 13, 2017 10:40 AM Allergies As of Date: 12/13/2017 Noted Allergy Reaction CARBAMAZEPINE 10/31/2015 6 - Diarrhea CRESTOR (ROSUVASTATIN CALCIUM) 01/24/2011 14 - Other: See Comments Comments: Myalgia, arthralgia. DEMEROL (MEPERIDINE (PF)) 11/21/2009 8 - GI Upset 11 - Vomiting DILTIAZEM 10/19/2015 2 - Rash 14 - Other: See Comments Comments: Chest pain, dark urine, rash. LEVAQUIN (LEVOFLOXACIN) 11/21/2009 8 - GI Upset 11 - Vomiting TETRACYCLINE 02/14/2006 8 - GI Upset TRAMADOL 04/28/2015 6 - Diarrhea Date Reviewed: 12/09/2017 Reviewed by: Morena Davis (Rn) JANELL Doe - Fully Assessed Reason for Visit: Results [95] Prescriptions as of 12/13/2017 Sig: CHOLECALCIFEROL (VITAMIN D3) * Take 1 capsule by mouth once * PRAVASTATIN 40 MG TABLET TAKE 1 TABLET ONCE DAILY PANTOPRAZOLE 40 MG TABLET,DEL* Take 1 tablet by mouth daily * ASPIRIN 81 MG TABLET,DELAYED * Take 1 tablet by mouth once d* CLOPIDOGREL 75 MG TABLET Take 1 tablet by mouth once d* METOPROLOL TARTRATE 25 MG TAB* Take 0.5 tablets by mouth twi* TRAZODONE 100 MG TABLET Take 1.5 tablets by mouth neeta* METFORMIN 1,000 MG TABLET Take 1 tablet by mouth twice * ALBUTEROL SULFATE HFA 90 MCG/* Inhale 2 Puffs as instructed * BLOOD SUGAR DIAGNOSTIC STRIPS 1 Strip once daily. For diabe* LANCETS Test blood sugar(s) 1 times d* * MELATONIN 3 MG TABLET Take 3 mg by mouth daily at b* Problem List As Of Date 12/13/2017 Noted Resolved ALLERGIC RHINITIS NOS [J30.9] More... Diabetes mellitus [E11.9] INVALID FOR*05/12/2012 Hyperlipidemia with target LDL less than 70 [E7*INVALID FOR* More... GERD (Gastroesophageal Reflux Disease) [K21.9] INVALID FOR* Degenerative Arthritis of Knee [M17.10] INVALID FOR* Well controlled type 2 diabetes mellitus (HCC) *INVALID FOR* Pain in limb [M79.609] INVALID FOR*04/24/2017 Dermatophytosis of nail [B35.1] INVALID FOR*04/24/2017 Essential hypertension [I10] INVALID FOR* Diarrhea [R19.7] 04/24/2017 Benign neoplasm of colon [D12.6] INVALID FOR*04/24/2017 Chronic depression [F32.9] INVALID FOR*04/24/2017 Chronic insomnia [F51.04] INVALID FOR*04/24/2017 Knee pain [M25.569] INVALID FOR*11/26/2012 Continuous tobacco abuse [Z72.0] INVALID FOR* Osteoarthrosis, unspecified whether generalized*INVALID FOR*11/24/2012 Knee joint replacement by other means [Z96.659] INVALID FOR*04/24/2017 Statin intolerance [Z78.9] INVALID FOR* Neuropathic pain [M79.2] INVALID FOR* Abnormal mammogram [R92.8] INVALID FOR* Encounter for long-term (current) use of medica*INVALID FOR* More... Functional dyspepsia [K30] INVALID FOR* More... History of colonic polyps [Z86.010] INVALID FOR* More... Gastroesophageal reflux disease [K21.9] INVALID FOR* More... Encounter Status:Closed by EVAN GEORGE MD on 12/13/17 CNPTOUTREACH Observed: 12/10/2017 Status: COMPLETED Source: [place] 12:00 AM [facility] REPOSITORY Patient Outreach (INTMWH) LARRYCATY Godoy ([id number]) 1960 [facility] Date Time Provider Department 12/10/17 DARWIN ESQUEDA [facility] During your visit today, we recorded the following information about you: Allergies As of Date: 12/10/2017 Noted Allergy Reaction CARBAMAZEPINE 10/31/2015 6 - Diarrhea CRESTOR (ROSUVASTATIN CALCIUM) 01/24/2011 14 - Other: See Comments Comments: Myalgia, arthralgia. DEMEROL (MEPERIDINE (PF)) 11/21/2009 8 - GI Upset 11 - Vomiting DILTIAZEM 10/19/2015 2 - Rash 14 - Other: See Comments Comments: Chest pain, dark urine, rash. LEVAQUIN (LEVOFLOXACIN) 11/21/2009 8 - GI Upset 11 - Vomiting TETRACYCLINE 02/14/2006 8 - GI Upset TRAMADOL 04/28/2015 6 - Diarrhea Date Reviewed: 12/09/2017 Reviewed by: Morena Davis (Rn) JANELL Doe - Fully Assessed Visit Diagnosis:Medication management [Z79.899] Order(s):BASIC METABOLIC PNL [SQBMP] Order #: [id number] FUTURE Prescriptions as of 12/10/2017 Sig: X CHOLECALCIFEROL (VITAMIN D3) * Take 1 capsule by mouth once * X PRAVASTATIN 40 MG TABLET TAKE 1 TABLET ONCE DAILY PANTOPRAZOLE 40 MG TABLET,DEL* Take 1 tablet by mouth daily * ASPIRIN 81 MG TABLET,DELAYED * Take 1 tablet by mouth once d* X CLOPIDOGREL 75 MG TABLET Take 1 tablet by mouth once d* X METOPROLOL TARTRATE 25 MG TAB* Take 0.5 tablets by mouth twi* X TRAZODONE 100 MG TABLET Take 1.5 tablets by mouth neeta* X METFORMIN 1,000 MG TABLET Take 1 tablet by mouth twice * X ALBUTEROL SULFATE HFA 90 MCG/* Inhale 2 Puffs as instructed * BLOOD SUGAR DIAGNOSTIC STRIPS 1 Strip once daily. For diabe* LANCETS Test blood sugar(s) 1 times d* * MELATONIN 3 MG TABLET Take 3 mg by mouth daily at b* Problem List As Of Date 12/10/2017 Noted Resolved ALLERGIC RHINITIS NOS [J30.9] More... Diabetes mellitus [E11.9] INVALID FOR*05/12/2012 Hyperlipidemia with target LDL less than 70 [E7*INVALID FOR* More... GERD (Gastroesophageal Reflux Disease) [K21.9] INVALID FOR* Degenerative Arthritis of Knee [M17.10] INVALID FOR* Well controlled type 2 diabetes mellitus (HCC) *INVALID FOR* Pain in limb [M79.609] INVALID FOR*04/24/2017 Dermatophytosis of nail [B35.1] INVALID FOR*04/24/2017 Essential hypertension [I10] INVALID FOR* Diarrhea [R19.7] 04/24/2017 Benign neoplasm of colon [D12.6] INVALID FOR*04/24/2017 Chronic depression [F32.9] INVALID FOR*04/24/2017 Chronic insomnia [F51.04] INVALID FOR*04/24/2017 Knee pain [M25.569] INVALID FOR*11/26/2012 Continuous tobacco abuse [Z72.0] INVALID FOR* Osteoarthrosis, unspecified whether generalized*INVALID FOR*11/24/2012 Knee joint replacement by other means [Z96.659] INVALID FOR*04/24/2017 Statin intolerance [Z78.9] INVALID FOR* Neuropathic pain [M79.2] INVALID FOR* Abnormal mammogram [R92.8] INVALID FOR* Encounter for long-term (current) use of medica*INVALID FOR* More... Functional dyspepsia [K30] INVALID FOR* More... History of colonic polyps [Z86.010] INVALID FOR* More... Gastroesophageal reflux disease [K21.9] INVALID FOR* More... Encounter Status:Closed by KAREN BRENNER on 07/25/18 NURSING PROG Observed: 12/09/2017 Status: COMPLETED Source: [place] 12:40 PM [facility] [place] REPOSITORY HNO ID: [id number] Author: Morena Davis (Rn) JANELL Doe Service: Nursing Author Type: Registered Nurse Type: Nursing Progress Note Filed: 12/09/2017 12:45 PM Note Text: Patient did not experience a fall prior to discharge. Patient did not experience a burn prior to discharge. Morena Doe RN NURSING PROG Observed: 12/09/2017 Status: COMPLETED Source: [place] 12:23 PM [facility] REPOSITORY HNO ID: [id number] Author: Morena CallesRnTawanda Doe RN Service: Nursing Author Type: Registered Nurse Type: Nursing Progress Note Filed: 12/09/2017 12:23 PM Note Text: Dr. George at bedside. Questions answered. Morena Doe RN PT ED Observed: 12/09/2017 Status: COMPLETED Source: [place] 12:14 PM [facility] REPOSITORY HNO ID: [id number] Author: Morena CallesRnTawanda Doe RN Service: Nursing Author Type: Registered Nurse Type: Patient Education Filed: 12/09/2017 12:14 PM Note Text: POST OP LEARNING RESPONSE INSTRUCTION PROVIDED TO: Patient and Spouse METHOD OF INSTRUCTION: Written instruction - handouts Verbal instruction PATIENT / FAMILY RESPONSE: Verbalizes understanding of: INFECTION MANAGEMENT-Signs and symptoms of an infection and importance of contacting the physician PHYSICAL RESTRICTIONS-Physical restrictions and recommendations after discharge from the hospital POST-PROCEDURE INSTRUCTIONS-Correct actions to take to reduce post procedure complications PATIENT SAFETY PRINCIPLES WORSENING CONDITION-Signs and symptoms of a worsening condition that warrant a call to the physician FOLLOW-UP PLAN: Patient instructed to call with any further issues Follow up phone call. SUPPLEMENTAL MATERIAL: Procedure discharge instructions REFERRAL (RECOMMENDATION): None Electronically Signed By: Morena Doe RN In Department: AMBULATORY SURGERY NURSING PROG Observed: 12/09/2017 Status: COMPLETED Source: [place] 11:39 AM [facility] REPOSITORY HNO ID: [id number] Author: Nancy Fajardo RN Service: (none) Author Type: Registered Nurse Type: Nursing Progress Note Filed: 12/09/2017 11:39 AM Note Text: Patient did not experience a fall within the Intraoperative area. Patient did not experience a burn within the Intraoperative area. Nancy Fajardo RN HISTORY PHYSICAL Observed: 12/09/2017 Status: COMPLETED Source: [place] 10:53 AM [facility] REPOSITORY HNO ID: [id number] Author: Evan George Service: Gastroenterology Author Type: Physician Type: HANDP Filed: 12/09/2017 10:56 AM Note Text: PROCEDURAL SEDATION HISTORY AND PHYSICAL EXAM SERVICE DATE: 12/09/2017 SERVICE TIME: 10:55 AM Subjective HPI: This is a 57 year old female who presents with dyspepsia and colon polyps PAST ANESTHESIA HISTORY: No history of adverse event PAST MEDICAL HISTORY Diagnosis Date - Allergic rhinitis, cause unspecified Allergic rhinitis - Arthritis - Asthma - Benign neoplasm of colon - Chronic depression 05/07/2011 - Chronic insomnia 05/07/2011 - Coronary artery disease - Dermatophytosis of nail 06/14/2010 - Diarrhea - DM (diabetes mellitus) (HCC) - GERD (gastroesophageal reflux disease) 11/21/2009 - Heart attack (HCC) - Knee joint replacement by other means 12/15/2012 - [facility] [address] - Snoring - Syncope - Tobacco abuse - Unspecified essential hypertension PAST SURGICAL HISTORY Procedure Laterality Date - BREAST BIOPSY ~1999 x2. couple abnormal mammogram. NO acner. - BREAST BIOPSY W/STEREOTACTIC GUIDANCE Right 16 - COLONOSCOPY 02/14/07 diverticulosis AND hyperpleastic polyp - COLONOSCOPY W/BX 02/15/11 - PAST SURGICAL HISTORY OF 11/24/2012 left total knee arthroplasty - PAST SURGICAL HISTORY OF 2013 right shoulder - REMOVAL GALLBLADDER - REMOVAL OF TONSILS,<12 Y/O - REMOVE EAR CANAL LESION(S) left - STENTS (SPECIFY) cardiac stents X 3 - THYROID Removed half of thyroid - TOTAL ABDOM HYSTERECTOMY 2004 - TOTAL KNEE REPLACEMENT Bilateral 12/27/2014 [facility]. Prior to Admission medications as of 12/09/17 1024 Medication Sig Last Dose Taking pravastatin (PRAVACHOL) 40 mg tablet TAKE 1 TABLET ONCE DAILY 12/08/2017 at Unknown time Yes pantoprazole DR (PROTONIX) 40 mg tablet Take 1 tablet by mouth daily before breakfast. Take on empty stomach, 1/2 hr before meal. 12/09/2017 at 0800 Yes aspirin, enteric coated (ECOTRIN LOW STRENGTH) 81 mg EC tablet Take 1 tablet by mouth once daily. 12/09/2017 at 0800 Yes metoprolol tartrate, short acting, (LOPRESSOR) 25 mg tablet Take 0.5 tablets by mouth twice daily. 12/09/2017 at 0800 Yes traZODone (DESYREL) 100 mg tablet Take 1.5 tablets by mouth daily at bedtime. 12/08/2017 at Unknown time Yes metFORMIN (GLUCOPHAGE) 1,000 mg tablet Take 1 tablet by mouth twice daily with meals. 12/09/2017 at 0800 Yes cholecalciferol, Vitamin D3, (VITAMIN D3) 50,000 unit cap capsule Take 1 capsule by mouth once each week. Unknown at Unknown time clopidogrel (PLAVIX) 75 mg tablet Take 1 tablet by mouth once daily. 12/03/2017 albuterol HFA (PROVENTIL HFA, VENTOLIN HFA) 90 mcg/actuation inhaler Inhale 2 Puffs as instructed every 6 hours as needed for Wheezing/Shortness of Breath. Unknown at Unknown time blood sugar diagnostic (ACCU-CHEK SMARTVIEW TEST STRIP) test strip 1 Strip once daily. For diabetes mellitus no insulin. Lancets (ACCU-CHEK SOFTCLIX LANCETS) lancets Test blood sugar(s) 1 times daily. Dx: 250.00. Insulin: No melatonin 3 mg ORAL Tab Take 3 mg by mouth daily at bedtime. Unknown at Unknown time ALLERGIES Allergen Reactions - Carbamazepine Diarrhea - Crestor [Rosuvastat* Other: See Comments Myalgia, arthralgia. - Demerol [Meperidine* GI Upset, Vomiting - Diltiazem Rash, Other: See Comments Chest pain, dark urine, rash. - Levaquin [Levofloxa* GI Upset, Vomiting - Tetracycline GI Upset - Tramadol Diarrhea Objective PHYSICAL EXAM: The remainder of the physical exam is noncontributory. AIRWAY: Airway Visualization of Uvula: Yes Mouth opening greater than 2 fingerbreadths: Yes Neck Full Range of Motion: Yes LUNGS: Lungs clear to auscultation, Good diaphragmatic excursion CARDIAC: Normal S1 and S2; no rubs, murmurs, or gallops Assessment/Plan ASA Class: ASA Class:: Patient with mild systemic disease Active Problems: Encounter for long-term (current) use of medications Assessment AND Plan: Dyspepsia and colon polyps/EGD and colonoscopy Resolved Problems: * No resolved hospital problems. * Provisional Diagnosis/Treatment Plan: same as above SEDATION GOAL: Moderate SIGNATURE: Evan George MD PATIENT NAME: Caty Pack DATE: December 09, 2017 TIME: 10:53 AM PAGER: NURSING PROG Observed: 12/09/2017 Status: COMPLETED Source: [place] 10:53 AM [facility] REPOSITORY HNO ID: [id number] Author: Altagracia Boston RN Service: (none) Author Type: Registered Nurse Type: Nursing Progress Note Filed: 12/09/2017 11:05 AM Note Text: [facility] PRE-OP NURSING HAND OFF NOTE SBAR Hand off given to Luli Alfaro RN. Hand off was communicated verbally and at the patient's bedside and all questions were answered. FALLS/ABDULLAHI Patient did not experience a fall within the Preoperative area. Patient did not experience a burn within the Preoperative area. Altagracia Boston RN PT ED Observed: 12/09/2017 Status: COMPLETED Source: [place] 10:15 AM [facility] REPOSITORY HNO ID: [id number] Author: Altagracia Boston RN Service: (none) Author Type: Registered Nurse Type: Patient Education Filed: 12/09/2017 10:41 AM Note Text: Discharge Instructions were reviewed pre-operatively with the patient. All questions and concerns were addressed. Altagracia Boston RN PRE OP LEARNING ASSESSMENT PROCEDURE/SURGERY: GI PROCEDURES: Colonoscopy and EGD READINESS TO LEARN COGNITIVE ABILITY: Alert and oriented MOTIVATION TO LEARN: Interested FAMILY SUPPORT: Unable to assess - Family not present PATIENT LEARNS BEST BY: Multiple Methods FACTORS AFFECTING LEARNING: None PHYSICAL LIMITATIONS AFFECTING LEARNING: None Electronically Signed By: Altagracia Boston RN In Department: AMBULATORY SURGERY SURGICAL PATHOLOGY Observed: 12/09/2017 Status: F Source: [place] 12:00 AM [facility] REPOSITORY Specimen originated from [facility] Specimen #: [id number] Submitting Physician: EVAN GEORGE MD FINAL DIAGNOSIS 1. Stomach, antrum, biopsy (A) - Gastric mucosa with no diagnostic alteration. - No histomorphologic evidence of Helicobacter pylori. 2. Colon, ascending polyp, polypectomy (B) - Tubular adenoma. 3. Colon, sigmoid polyp, polypectomy (C) - Cauterized colonic mucosa suggestive of hyperplastic polyp. 4. Rectal polyp, polypectomy (D) - Tubular adenoma. EDK/lbk 12/10/2017 Ana María Portillo D.O. (Electronic Signature) SPECIMEN SUBMITTED A: ANTRUM, BIOPSY H/H B: ASCENDING COLON POLYP C: SIGMOID COLON POLYP D: RECTAL POLYP CLINICAL DATA Z79.899, K30, Z86.010, K21.9 B: COLD SNARE C: HOT SNARE GROSS DESCRIPTION A. Received in formalin is one piece of chawla, soft tissue measuring 0.5 x 0.3 x 0.2 cm. Totally submitted in one cassette. B. Received in formalin are four segments of chawla polypoid tissue ranging in size from 0.4 x 0.3 x 0.2 cm to 0.3 x 0.2 x 0.2 cm. No stalks are noted. The lines of resection are noted. The specimens are not sectioned and totally submitted in one cassette. C. Received in formalin is one piece of chawla, soft tissue measuring 0.4 x 0.3 x 0.2 cm. Totally submitted in one cassette. D. Received in formalin is a segment of chawla polypoid tissue measuring 0.6 x 0.3 x 0.2 cm. No stalk is noted. The line of resection is noted. The specimen is bisected and totally submitted in one cassette. Gross examination performed at [facility], [address] [place] [address] 12/09/2017 10:58:31 PM Date of Report: 12/13/2017 Date of Procedure: 12/09/2017 Date of Receipt: 12/09/2017 Submitted by: EVAN GEORGE MD Location: [id number] Diagnostic interpretation performed at [facility], [address] [place] [address]. XR CHEST 2V FRONTAL/LAT Observed: 11/06/2017 Status: F Source: [place] 11:43 AM [facility] REPOSITORY * * *Final Report* * * DATE OF EXAM: Nov 06 2017 11:43AM WOX [id number] - XR CHEST 2V FRONTAL/LAT / PROCEDURE REASON: Cough * * * * Physician Interpretation * * * * EXAMINATION: CHEST RADIOGRAPH (2 VIEW FRONTAL and LATERAL) Clinical History: Cough M: XC2_3 Comparison: 05/19/2014 RESULT: Lines, tubes, and devices: None. Lungs and pleura: Mild vascular prominence, seen better on the lateral view, together with slight thickening of the fissures may indicate minimal congestion and tiny effusions. Costophrenic angles are sharp. No focal consolidation is noted. Cardiomediastinal silhouette: Normal cardiomediastinal silhouette. Other: IMPRESSION: Borderline interstitial prominence could represent minimal congestion. Cut Order Hand: JAIRO Transcribe Date/Time: Nov 06 2017 3:34P Dictated by : PATRICIA FUENTES MD This examination was interpreted and the report reviewed and electronically signed by: PATRICIA FUENTES MD on Nov 06 2017 3:35PM EST [id number] Observed: 11/06/2017 Status: COMPLETED Source: [place] 11:34 AM [facility] REPOSITORY HNO ID: [id number] Author: Nancy Raymond Service: (none) Author Type: (none) Type: Progress Notes Filed: 11/06/2017 11:44 AM Note Text: Radiology Service Progress Note PATIENT NAME: Caty Pack DATE OF SERVICE: November 06, 2017 TIME: 11:35 AM PATIENT IDENTITY VERIFICATION COMPLETED USING TWO (2) METHODS: Patient confirmed name verbally and Date of . PATIENT GENDER DATA: Female. status: : No status: NO. PATIENT RELEVANT IMPLANT DATA REVIEWED: Not Applicable RADIOLOGY DEPARTMENT: General X-ray: Exam(s) Completed: Chest X-Ray PERIPHERAL IV DATA: Not applicable SIGNED BY: Nancy Raymond November 06, 2017 11:35 AM HISTORY PHYSICAL Observed: 11/06/2017 Status: COMPLETED Source: [place] 10:45 AM [facility] REPOSITORY HNO ID: [id number] Author: Miguel Mccain Service: (none) Author Type: Nurse Practitioner Type: HANDP Filed: 11/06/2017 11:40 AM Note Text: Caty Pack a 57 year old female who is returning for surveillance colonoscopy. She has a history of polyps. Her PCP will be Dr. Tejada. The patient was seen by Dr. George for colonoscopy 12/02/14. The procedure report has been reviewed and findings as follows: Impression: ? ?- One 10 mm polyp in the mid ascending colon. Resected ? and retrieved. ? - One 8 mm polyp in the proximal ascending colon. ? Resected and retrieved. FINAL DIAGNOSIS 1. ?Colon, ascending, polypectomy (A) - ?Fragments of tubular adenoma. ? 2. Colon, distal ascending, polypectomy (B) - Fragments of tubular adenoma. Presenting complaint: The patient presents today reporting I can't remember the time I had solid bowel movement. She takes metformin with meals. She has had three bowel movements so far today, and it's not even 11:00. Rarely skips a day. No blood or black stool. She will have cramping urgency that can awaken her from sleep. Taking pantoprazole. She tells me that it doesn't work as well as Nexium did. (had to switch due to Plavix). She recalls her last EGD was at least 10 years ago. REVIEW OF SYSTEMS: GENERAL: No unplanned weight loss. RESPIRATORY: Cough; dry. Also occasional shortness of breath. Symptoms not new ~ no prior evaluation. CARDIOVASCULAR: mild IA . 2 stents October 2016 and 1 stent August 2017. Started Plavix 10/2016. Sees Dr. Davila. last seen 09/29. GI: The patient states that her appetite has been good. She eats once or twice a day. There has been no nausea, no vomiting. She denies dysphagia and denies odynophagia. Since having to change to pantoprazole, there has been indigestion with heartburn and regurgitation. Bowel habits have been regular. There has been diarrhea. There has not been constipation. The patient denies rectal bleeding. There has not been melena. Intermittent generalized abdominal pain. 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 LMP: 2004 - hyst. PSYCH: Positive for depression: Related to the loss of her brother. HEMATOLOGY/LYMPHOLOGY : taking Plavix. ENDOCRINE: Positive for diabetes mellitus on oral agent NEURO: Neuropathy of legs and feet. All other reviewed and negative other than HPI. PAST MEDICAL HISTORY Diagnosis Date - Allergic rhinitis, cause unspecified Allergic rhinitis - Arthritis - Asthma - Benign neoplasm of colon - Chronic depression 05/07/2011 - Chronic insomnia 05/07/2011 - Dermatophytosis of nail 06/14/2010 - Diarrhea - DM (diabetes mellitus) (HCC) - GERD (gastroesophageal reflux disease) 11/21/2009 - Knee joint replacement by other means 12/15/2012 - [facility] [address] - Snoring - Tobacco abuse - Unspecified essential hypertension PAST SURGICAL HISTORY Procedure Laterality Date - BREAST BIOPSY ~1999 x2. couple abnormal mammogram. NO acner. - BREAST BIOPSY W/STEREOTACTIC GUIDANCE Right 11-14-15 - COLONOSCOPY 02/14/07 diverticulosis AND hyperpleastic polyp - COLONOSCOPY W/BX 02/15/11 - PAST SURGICAL HISTORY OF 11/24/2012 left total knee arthroplasty - PAST SURGICAL HISTORY OF 2013 right shoulder - REMOVAL GALLBLADDER - REMOVAL OF TONSILS,<10 Y/O - REMOVE EAR CANAL LESION(S) left - THYROID Removed half of thyroid - TOTAL ABDOM HYSTERECTOMY 2004 - TOTAL KNEE REPLACEMENT Right 12/27/2014 [facility]. FAMILY HISTORY Problem Relation Age of Onset - Diabetes Mother - Heart Mother - Stroke Mother - Cancer Father breast cancer. - Arthritis Brother - Heart Brother - Diabetes Brother - Arthritis Maternal Grandmother - Breast Cancer Paternal Grandfather Dad's dad. - Breast Cancer Paternal Uncle dad's brother - DVT Brother Current Outpatient Prescriptions: cholecalciferol, Vitamin D3, (VITAMIN D3) 50,000 unit cap capsule Take 1 capsule by mouth once each week. Disp: 12 capsule Rfl: 0 pravastatin (PRAVACHOL) 40 mg tablet TAKE 1 TABLET ONCE DAILY Disp: 90 tablet Rfl: [address] (PROTONIX) 40 mg tablet Take 1 tablet by mouth daily before breakfast. Take on empty stomach, 1/2 hr before meal. Disp: Rfl: 0 aspirin, enteric coated (ECOTRIN LOW STRENGTH) 81 mg EC tablet Take 1 tablet by mouth once daily. Disp: Rfl: 0 clopidogrel (PLAVIX) 75 mg tablet Take 1 tablet by mouth once daily. Disp: 30 tablet Rfl: 11 metoprolol tartrate, short acting, (LOPRESSOR) 25 mg tablet Take 0.5 tablets by mouth twice daily. Disp: Rfl: traZODone (DESYREL) 100 mg tablet Take 1.5 tablets by mouth daily at bedtime. Disp: 135 tablet Rfl: 3 esomeprazole (NEXIUM) 40 mg capsule Take 1 capsule by mouth once daily. ON AN EMPTY STOMACH Disp: 90 capsule Rfl: 3 metFORMIN (GLUCOPHAGE) 1,000 mg tablet Take 1 tablet by mouth twice daily with meals. Disp: 180 tablet Rfl: 3 albuterol HFA (PROVENTIL HFA, VENTOLIN HFA) 90 mcg/actuation inhaler Inhale 2 Puffs as instructed every 6 hours as needed for Wheezing/Shortness of Breath. Disp: 1 Inhaler Rfl: 5 blood sugar diagnostic (ACCU-CHEK SMARTVIEW TEST STRIP) test strip 1 Strip once daily. For diabetes mellitus no insulin. Disp: 50 Each Rfl: 5 Lancets (ACCU-CHEK SOFTCLIX LANCETS) lancets Test blood sugar(s) 1 times daily. Dx: 250.00. Insulin: No Disp: 1 Each Rfl: 11 melatonin 3 mg ORAL Tab Take 3 mg by mouth daily at bedtime. Disp: Rfl: No current facility-administered medications for this visit. SOCIAL HISTORY: Patient is . She smokes few cigarretes per day and reports her alcohol use as very rarely. PHYSICAL EXAMINATION: Blood pressure 127/73, pulse 66, height 163.8 cm (5' 4.5), weight 85.9 kg (189 lb 6.4 oz), last menstrual period 03/29/2006. General Appearance: Well appearing, alert, in no acute distress, well-hydrated, well nourished. Skin: Skin color, texture, turgor normal, no suspicious rashes or lesions. Eyes: Anicteric sclera. Oropharynx: Lips, mucosa, and tongue normal, teeth and gums normal. Neck: Supple, no adenopathy. Lungs: Lungs clear to auscultation. Diminished right mid and lower lobes. No wheezing, rhonchi, rales. Heart: RRR without murmur. Abdomen: Abdomen soft. Slight tenderness to palpation at splenic flexure region and hepatic flexure region. Bowel sounds normal. No masses, organomegaly. Extremities: No deformities oredema. Peripheral Pulses: Normal. Neurologic: Gait normal. Sensation grossly intact. Impression: GERD 2)dyspepsia 3)history of polyps 4)upper abdominal tenderness Plan: CXR today. The patient will be scheduled for an upper endoscopy as well as a colonoscopy. Preparation for the procedures, using GoLytely as the laxative, have been explained in detail. The risks, benefits, anticipated outcomes and possible complications were mentioned. I explained the procedure in understandable terms and the patient was given printed material concerning the planned procedure. The patient had the opportunity to ask questions concerning the planned procedure. The patient freely consents to the planned procedure. The patient is encouraged to call with any questions or concerns, or should there be any change in health status between now and the scheduled procedure. I have personally interviewed and examined this patient. I have read the information that the MA documented in this encounter. This visit was at least 30 minutes in length with a majority of the time spent in review of the past records with the patient, discussion and counseling. Miguel Mccain RN NEWS SPECIALIST CNOV Observed: 11/06/2017 Status: COMPLETED Source: [place] 10:20 AM [facility] REPOSITORY [facility] LARRYCATY Godoy ([id number]) 1960 [facility] Date Time Provider Department 11/06/17 10:20 AM MIGUEL MCCAIN (SUPERVISOR BURLING AND JOINING) [facility] During your visit today, we recorded the following information about you: Pulse Blood pressure Weight Height 66/minute 127/73 85.9 kg 1.638 m Miguel Mccain RN NEWS SPECIALIST 11/06/2017 11:40 AM Signed Caty Nugent Larry a 57 year old female who is returning for surveillance colonoscopy. She has a history of polyps. Her PCP will be Dr. Tejada. The patient was seen by Dr. George for colonoscopy 12/02/14. The procedure report has been reviewed and findings as follows: Impression: ? ?- One 10 mm polyp in the mid ascending colon. Resected ? and retrieved. ? - One 8 mm polyp in the proximal ascending colon. ? Resected and retrieved. FINAL DIAGNOSIS 1. ?Colon, ascending, polypectomy (A) - ?Fragments of tubular adenoma. ? 2. Colon, distal ascending, polypectomy (B) - Fragments of tubular adenoma. Presenting complaint: The patient presents today reporting ANDquot;I can't remember the time I had solid bowel movementANDquot;. She takes metformin with meals. She has had three bowel movements so far today, and it's not even 11:00. Rarely skips a day. No blood or black stool. She will have cramping urgency that can awaken her from sleep. Taking pantoprazole. She tells me that it doesn't work as well as Nexium did. (had to switch due to Plavix). She recalls her last EGD was at least 10 years ago. REVIEW OF SYSTEMS: GENERAL: No unplanned weight loss. RESPIRATORY: Cough; dry. Also occasional shortness of breath. Symptoms not new ~ no prior evaluation. CARDIOVASCULAR: ANDquot;mildANDquot; IA . 2 stents October 2016 and 1 stent August 2017. Started Plavix 10/2016. Sees Dr. Davila. last seen 09/29. GI: The patient states that her appetite has been good. She eats once or twice a day. There has been no nausea, no vomiting. She denies dysphagia and denies odynophagia. Since having to change to pantoprazole, there has been indigestion with heartburn and regurgitation. Bowel habits have been regular. There has been diarrhea. There has not been constipation. The patient denies rectal bleeding. There has not been melena. Intermittent generalized abdominal pain. 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 LMP: 2005 - hyst. PSYCH: Positive for depression: Related to the loss of her brother. HEMATOLOGY/LYMPHOLOGY : taking Plavix. ENDOCRINE: Positive for diabetes mellitus on oral agent NEURO: Neuropathy of legs and feet. All other reviewed and negative other than HPI. PAST MEDICAL HISTORY Diagnosis Date - Allergic rhinitis, cause unspecified Allergic rhinitis - Arthritis - Asthma - Benign neoplasm of colon - Chronic depression 05/07/2011 - Chronic insomnia 05/07/2011 - Dermatophytosis of nail 06/14/2010 - Diarrhea - DM (diabetes mellitus) (HCC) - GERD (gastroesophageal reflux disease) 11/21/2009 - Knee joint replacement by other means 12/15/2012 - Pneumonia 2009 Hosp 8 days [facility]. - Snoring - Tobacco abuse - Unspecified essential hypertension PAST SURGICAL HISTORY Procedure Laterality Date - BREAST BIOPSY ~1999 x2. couple abnormal mammogram. NO acner. - BREAST BIOPSY W/STEREOTACTIC GUIDANCE Right 11-14-15 - COLONOSCOPY 02/14/07 diverticulosis ANDamp; hyperpleastic polyp - COLONOSCOPY W/BX 02/15/11 - PAST SURGICAL HISTORY OF 11/24/2012 left total knee arthroplasty - PAST SURGICAL HISTORY OF 2013 right shoulder - REMOVAL GALLBLADDER - REMOVAL OF TONSILS,ANDlt;10 Y/O - REMOVE EAR CANAL LESION(S) left - THYROID Removed half of thyroid - TOTAL ABDOM HYSTERECTOMY 2004 - TOTAL KNEE REPLACEMENT Right 12/27/2014 [facility]. FAMILY HISTORY Problem Relation Age of Onset - Diabetes Mother - Heart Mother - Stroke Mother - Cancer Father breast cancer. - Arthritis Brother - Heart Brother - Diabetes Brother - Arthritis Maternal Grandmother - Breast Cancer Paternal Grandfather Dad's dad. - Breast Cancer Paternal Uncle dad's brother - DVT Brother Current Outpatient Prescriptions: cholecalciferol, Vitamin D3, (VITAMIN D3) 50,000 unit cap capsule Take 1 capsule by mouth once each week. Disp: 12 capsule Rfl: 0 pravastatin (PRAVACHOL) 40 mg tablet TAKE 1 TABLET ONCE DAILY Disp: 90 tablet Rfl: [address] (PROTONIX) 40 mg tablet Take 1 tablet by mouth daily before breakfast. Take on empty stomach, 1/2 hr before meal. Disp: Rfl: 0 aspirin, enteric coated (ECOTRIN LOW STRENGTH) 81 mg EC tablet Take 1 tablet by mouth once daily. Disp: Rfl: 0 clopidogrel (PLAVIX) 75 mg tablet Take 1 tablet by mouth once daily. Disp: 30 tablet Rfl: 11 metoprolol tartrate, short acting, (LOPRESSOR) 25 mg tablet Take 0.5 tablets by mouth twice daily. Disp: Rfl: traZODone (DESYREL) 100 mg tablet Take 1.5 tablets by mouth daily at bedtime. Disp: 135 tablet Rfl: 3 esomeprazole (NEXIUM) 40 mg capsule Take 1 capsule by mouth once daily. ON AN EMPTY STOMACH Disp: 90 capsule Rfl: 3 metFORMIN (GLUCOPHAGE) 1,000 mg tablet Take 1 tablet by mouth twice daily with meals. Disp: 180 tablet Rfl: 3 albuterol HFA (PROVENTIL HFA, VENTOLIN HFA) 90 mcg/actuation inhaler Inhale 2 Puffs as instructed every 6 hours as needed for Wheezing/Shortness of Breath. Disp: 1 Inhaler Rfl: 5 blood sugar diagnostic (ACCU-CHEK SMARTVIEW TEST STRIP) test strip 1 Strip once daily. For diabetes mellitus no insulin. Disp: 50 Each Rfl: 5 Lancets (ACCU-CHEK SOFTCLIX LANCETS) lancets Test blood sugar(s) 1 times daily. Dx: 250.00. Insulin: No Disp: 1 Each Rfl: 11 melatonin 3 mg ORAL Tab Take 3 mg by mouth daily at bedtime. Disp: Rfl: No current facility-administered medications for this visit. SOCIAL HISTORY: Patient is . She smokes few cigarretes per day and reports her alcohol use as very rarely. PHYSICAL EXAMINATION: Blood pressure 127/73, pulse 66, height 163.8 cm (5' 4.5ANDquot;), weight 85.9 kg (189 lb 6.4 oz), last menstrual period 03/29/2006. General Appearance: Well appearing, alert, in no acute distress, well-hydrated, well nourished. Skin: Skin color, texture, turgor normal, no suspicious rashes or lesions. Eyes: Anicteric sclera. Oropharynx: Lips, mucosa, and tongue normal, teeth and gums normal. Neck: Supple, no adenopathy. Lungs: Lungs clear to auscultation. Diminished right mid and lower lobes. No wheezing, rhonchi, rales. Heart: RRR without murmur. Abdomen: Abdomen soft. Slight tenderness to palpation at splenic flexure region and hepatic flexure region. Bowel sounds normal. No masses, organomegaly. Extremities: No deformities oredema. Peripheral Pulses: Normal. Neurologic: Gait normal. Sensation grossly intact. Impression: GERD 2)dyspepsia 3)history of polyps 4)upper abdominal tenderness Plan: CXR today. The patient will be scheduled for an upper endoscopy as well as a colonoscopy. Preparation for the procedures, using GoLytely as the laxative, have been explained in detail. The risks, benefits, anticipated outcomes and possible complications were mentioned. I explained the procedure in understandable terms and the patient was given printed material concerning the planned procedure. The patient had the opportunity to ask questions concerning the planned procedure. The patient freely consents to the planned procedure. The patient is encouraged to call with any questions or concerns, or should there be any change in health status between now and the scheduled procedure. I have personally interviewed and examined this patient. I have read the information that the MA documented in this encounter. This visit was at least 30 minutes in length with a majority of the time spent in review of the past records with the patient, discussion and counseling. Miguel Mccain RN NEWS SPECIALIST Miguel Mccain RN NEWS SPECIALIST 11/06/2017 11:15 AM Addendum Confirm with Dr. Davila that you can be off Plavix for the procedure. (then call our office to confirm) Please follow the provided instructions for upper endoscopy and colonoscopy. You will be using GoLytely as the laxative during the preparation. You may start the laxative as early as 1:00 in the afternoon. Your procedures will be with Dr. George on December 09. Follow up with me after the procedure. December 19. Arrrive at 12:40. Referring Provider: DARWIN ESQUEDA [[id number]] Allergies As of Date: 11/06/2017 Noted Allergy Reaction CARBAMAZEPINE 10/31/2015 6 - Diarrhea CRESTOR (ROSUVASTATIN CALCIUM) 01/24/2011 14 - Other: See Comments Comments: Myalgia, arthralgia. DEMEROL (MEPERIDINE (PF)) 11/21/2009 8 - GI Upset 11 - Vomiting DILTIAZEM 10/19/2015 2 - Rash 14 - Other: See Comments Comments: Chest pain, dark urine, rash. LEVAQUIN (LEVOFLOXACIN) 11/21/2009 8 - GI Upset 11 - Vomiting TETRACYCLINE 02/14/2006 8 - GI Upset TRAMADOL 04/28/2015 6 - Diarrhea Date Reviewed: 11/06/2017 Reviewed by: Tamra Henderson MA - Fully Assessed Reason for Visit: 3 year recall Colonoscopy [Other] Primary Visit Diagnosis:Encounter for long-term (current) use of medications [Z79.899] Other Visit Diagnoses:Functional dyspepsia [K30] Gastroesophageal reflux disease, esophagitis presence not specified [K21.9] History of colonic polyps [Z86.010] Cough in adult [R05] Order(s):EGD [[id number]] Order #: [id number] FUTURE COLONOSCOPY, SCREENING, HIGH RISK [[id number]] Order #: [id number] FUTURE peg 3350-electrolytes (COLYTE) 240-22.72-6.72 -5.84 gram solutionTake 4,000 mL by mouth one time only for 1 dose.Disp: 1 BottleRfl: 0 XR CHEST 2V FRONTAL/LAT [[id number]] Order #: [id number] FUTURE Prescriptions as of 11/06/2017 Sig: PEG 3350 240 GRAM-ELECTROLYTE* Take 4,000 mL by mouth one ti* CHOLECALCIFEROL (VITAMIN D3) * Take 1 capsule by mouth once * PRAVASTATIN 40 MG TABLET TAKE 1 TABLET ONCE DAILY PANTOPRAZOLE 40 MG TABLET,DEL* Take 1 tablet by mouth daily * ASPIRIN 81 MG TABLET,DELAYED * Take 1 tablet by mouth once d* CLOPIDOGREL 75 MG TABLET Take 1 tablet by mouth once d* METOPROLOL TARTRATE 25 MG TAB* Take 0.5 tablets by mouth twi* TRAZODONE 100 MG TABLET Take 1.5 tablets by mouth neeta* METFORMIN 1,000 MG TABLET Take 1 tablet by mouth twice * ALBUTEROL SULFATE HFA 90 MCG/* Inhale 2 Puffs as instructed * BLOOD SUGAR DIAGNOSTIC STRIPS 1 Strip once daily. For diabe* LANCETS Test blood sugar(s) 1 times d* * MELATONIN 3 MG TABLET Take 3 mg by mouth daily at b* Medication notes this encounter CHOLECALCIFEROL (VITAMIN D3) 50,000 UNIT CAPSULE >> Tamra Henderson MA 11/06/2017 10:27 AM >> TAMRA HENDERSON MA SatNov 06, 2017 10:27 AM Not taking METOPROLOL TARTRATE 25 MG TABLET >> Tamra Henderson MA 11/06/2017 10:29 AM >> TAMRA HENDERSON MA SatNov 06, 2017 10:29 AM 50 mg ESOMEPRAZOLE MAGNESIUM 40 MG CAPSULE,DELAYED RELEASE >> Tamra Henderson MA 11/06/2017 10:29 AM >> TAMRA HENDERSON MA SatNov 06, 2017 10:29 AM Not taking MELATONIN 3 MG TABLET >> Tamra Henderson MA 11/06/2017 10:29 AM >> TAMRA HENDERSON MA SatNov 06, 2017 10:29 AM Not taking Problem List As Of Date 11/06/2017 Noted Resolved ALLERGIC RHINITIS NOS [J30.9] More... Diabetes mellitus [E11.9] INVALID FOR*05/12/2012 Hyperlipidemia with target LDL less than 70 [E7*INVALID FOR* More... GERD (Gastroesophageal Reflux Disease) [K21.9] INVALID FOR* Degenerative Arthritis of Knee [M17.10] INVALID FOR* Well controlled type 2 diabetes mellitus (HCC) *INVALID FOR* Pain in limb [M79.609] INVALID FOR*04/24/2017 Dermatophytosis of nail [B35.1] INVALID FOR*04/24/2017 Essential hypertension [I10] INVALID FOR* Diarrhea [R19.7] 04/24/2017 Benign neoplasm of colon [D12.6] INVALID FOR*04/24/2017 Chronic depression [F32.9] INVALID FOR*04/24/2017 Chronic insomnia [F51.04] INVALID FOR*04/24/2017 Knee pain [M25.569] INVALID FOR*11/26/2012 Continuous tobacco abuse [Z72.0] INVALID FOR* Osteoarthrosis, unspecified whether generalized*INVALID FOR*11/24/2012 Knee joint replacement by other means [Z96.659] INVALID FOR*04/24/2017 Statin intolerance [Z78.9] INVALID FOR* Neuropathic pain [M79.2] INVALID FOR* Abnormal mammogram [R92.8] INVALID FOR* Other instructions from your clinician: Confirm with Dr. Davila that you can be off Plavix for the procedure. (then call our office to confirm) Please follow the provided instructions for upper endoscopy and colonoscopy. You will be using GoLytely as the laxative during the preparation. You may start the laxative as early as 1:00 in the afternoon. Your procedures will be with Dr. George on December 09. Follow up with me after the procedure. December 19. Arrrive at 12:40. Prescriptions ordered this encounter Disp Refills Start End PEG 3350 240 GRAM-ELECTROLYTES 22.72* 1 Walter* 0 11/06/2017 11/06/2017 Route: ORAL Sig: Take 4,000 mL by mouth one time only for 1 dose. Medications Discontinued During This Encounter esomeprazole (NEXIUM) 40 mg capsule 90 c* 3 10/16/2016 11/06/2017 Route: ORAL Sig: Take 1 capsule by mouth once daily. ON AN EMPTY STOMACH Disc: Discontinued by another Health Care Provider Encounter Status:Closed by MIGUEL MCCAIN CNP on 11/06/17 HOSP Observed: 11/06/2017 Status: COMPLETED Source: [place] 12:00 AM [facility] REPOSITORY Patient:Caty Pack MRN: <[id number]> Height:5' 4.5(1.638 m) Weight:No patient weight recorded within the last 30 days. Outpatient Medications as of 12/09/17: cholecalciferol, Vitamin D3, (VITAMIN D3) 50,000 unit cap capsule pravastatin (PRAVACHOL) [address] (PROTONIX) 40 mg tablet aspirin, enteric coated (ECOTRIN LOW STRENGTH) 81 mg EC tablet clopidogrel (PLAVIX) 75 mg tablet metoprolol tartrate, short acting, (LOPRESSOR) 25 mg tablet traZODone (DESYREL) 100 mg tablet metFORMIN (GLUCOPHAGE) 1,000 mg tablet albuterol HFA (PROVENTIL HFA, VENTOLIN HFA) 90 mcg/actuation inhaler blood sugar diagnostic (ACCU-CHEK SMARTVIEW TEST STRIP) test strip Lancets (ACCU-CHEK SOFTCLIX LANCETS) lancets melatonin 3 mg ORAL Tab Admission/Clinic Administered Medications as of 12/09/17: lactated ringers infusion Problem List: Allergic rhinitis, cause unspecified [J30.9] Hyperlipidemia with target LDL less than 70 [E78.5] GERD (gastroesophageal reflux disease) [K21.9] Degenerative arthritis of knee [M17.10] Well controlled type 2 diabetes mellitus (HCC) [E11.9] Essential hypertension [I10] Continuous tobacco abuse [Z72.0] Statin intolerance [Z78.9] Neuropathic pain [M79.2] Abnormal mammogram [R92.8] Encounter for long-term (current) use of medications [Z79.899] Functional dyspepsia [K30] History of colonic polyps [Z86.010] Gastroesophageal reflux disease [K21.9] Allergies: Carbamazepine Crestor [Rosuvastatin Calcium] Demerol [Meperidine (Pf)] Diltiazem Levaquin [Levofloxacin] Tetracycline Tramadol Date Verified: 12/09/17 Lab Values No results within the last 30 days for the following basenames: K,HCT No progress notes entered within the past 30 days LIPID PANEL, BASIC Collected: 10/31/2017 Status: F Source: [place] 11:04 AM [facility] REPOSITORY TYPE CODE TESTS RESULT OUT OF REFERENCE UNITS RANGE LAB CHOL <200 mg/dL Cholesterol High 202 Result Comment: <200 mg/dL, Desirable 200-239 mg/dL, Borderline high >239 mg/dL, High LAB TRIGLY <150 mg/dL Triglyceride High 419 Result Comment: <150 mg/dL, Normal 150-199 mg/dL, Borderline high 200-499 mg/dL, High >499 mg/dL, Very high LAB HDL >39 mg/dL HDL-Cholesterol Low 37 Result Comment: 40-59 mg/dL, Acceptable >59 mg/dL, High: Negative risk factor for coronary heart disease <40 mg/dL, Low: Positive risk factor for coronary heart disease LAB LDL <100 mg/dL LDL-Cholesterol Unable to calculate due to increased Triglycerides. See LDL-Chol, Direct. LAB NONHDL <130 mg/dL Non HDL Cholesterol 165 High Result Comment: <130 mg/dL, Optimal 130-159 mg/dL, Near optimal/above optimal 160-189 mg/dL, Borderline high 190-219 mg/dL, High >219 mg/dL, Very high Secondary prevention optimal non HDL Cholesterol levels are recommended to be < 100 mg/dL LAB FT hrs Fasting Time 14 LAB VLDL <30 mg/dL VLDL Unable Cholesterol to calculate due to increased Triglycerides. See LDL-Chol, Direct. LAB TCHDL <5.10 TC:HDL Ratio 5.46 High LAB LDLHDL <2.54 LDL:HDL Ratio Unable to calculate due to elevated Triglycerides. Result Comment: Reference: 1. National Cholesterol Education Program ATP III Guideline At-A-Glance Quick Desk Reference: National Heart, Lung, and Blood [place]. National Institutes of Health. 2001: NIH Publication No. 01-3305. 2. An International Atherosclerosis Society position paper: global recommendations for the management of dyslipidemia: executive summary, Atherosclerosis. 2014: 232(2):410-413. Performed By: #### LIPB, LDLDCT #### [facility] [address] [place] [address] LDL-CHOL, DIRECT Collected: 10/31/2017 Status: F Source: [place] 11:04 AM [facility] REPOSITORY TYPE CODE TESTS RESULT OUT OF REFERENCE UNITS RANGE LAB LDLDIR <100 mg/dL High LDL-Chol, 111 Direct Result Comment: <100 mg/dL, Optimal 100-129 mg/dL, Near optimal/above optimal 130-159 mg/dL, Borderline high 160-189 mg/dL, High >189 mg/dL, Very high Secondary prevention optimal LDL Cholesterol levels are recommended to be < 70 mg/dL LAB VLDL1 <30 mg/dL VLDL Cholesterol High 54 Performed By: #### LIPB, LDLDCT #### [facility] [address] [place], [place] [address] ALBUMIN/CREAT RATIO Collected: 10/09/2017 Status: F Source: [place] 12:51 PM [facility] REPOSITORY TYPE CODE TESTS RESULT OUT OF REFERENCE UNITS RANGE LAB UCRR 20-300 mg/dL 95.2 Creatinine,Ur ine,Ran LAB UALBR 0.0-23.0 mg/L <12.0 Albumin Urine Random LAB UALBCR 0-30 mg/g Not Albumin/Creat calculated Ratio Performed By: #### UACR #### [facility] [address] [place], [place] [address] HEMOGLOBIN A1C Collected: 10/09/2017 Status: F Source: [place] 12:26 PM [facility] REPOSITORY TYPE CODE TESTS RESULT OUT OF REFERENCE UNITS RANGE LAB HGBA1C 4.3-5.6 % High Hemoglobin A1c 6.6 LAB HBA0 mg/dL Est. Average Glucose 143 Result Comment: eAG: (Estimated average glucose) is a calculated value from HgbA1c and is medical billing representative of the average blood glucose level in the last 2-3 month period. Performed By: #### HBA1C #### [facility] [address] [address] [place], [place] [address] VITAMIN D 25 HYDROXY Collected: 10/09/2017 Status: F Source: [place] 12:26 PM [facility] REPOSITORY TYPE CODE TESTS RESULT OUT OF REFERENCE UNITS RANGE LAB VITD 31.0-80.0 ng/mL Low Vitamin D 25 9.5 Hydroxy Result Comment: Classification of 25 [place] Vitamin D status: Insufficiency/Moderate Deficiency: < or = 30 ng/mL Sufficiency/Optimal Levels: 31 to 80 ng/mL Toxicity: > 100 ng/mL Test performed by chemiluminescent immunoassay. Performed By: #### VITD #### [facility] [address] [place] [address] 12 LEAD EKG PERFORMED Observed: 10/03/2017 Status: F Source: [place] [facility] [place] 12:59 PM [facility] REPOSITORY [facility] [address] [place] [address] 12 Lead EKG performed by [facility] 10/03/17 1257 MR#: [id number] Acct: [id number] Name: CATY PACK Rep #: [id number] : 1960 57 From: Isac Davila MD Attending Dr: Patricia Bailey NP Status: DEP AMB Ordering Dr: Isac Davila MD Date: 10/03/17 [place] [facility] Sex: F C Admitted: BMS/12 Lead EKG performed by [facility] ECG Report Interpretation Sinus Rhythm Leftward axisLow voltage QRS (limb leads)Inferior IA, age undetermined, cannot be excludedNonspecific T wave abnormalityABNORMAL Electronically signed on 10/03/2017 at 14:26 by Isac Davila 10/30/17 1615 Date Isac Davila MD CC: Olivier Esqueda MD Date Dictated: 10/03/17 1257 Date Transcribed: 10/03/17 1257 Cut Order Hand: PM Signed ALLERGIES ALLERGIES DATE TYPE / CODE NAME / CODE REACTION SEVERITY SOURCE 09/18/2018 Drug meperidine Vomiting Unknown Lilibeth Allergy/416 HCl/[id number](RXNO [facility] 592053([facility] ED CT) Repository 09/18/2018 Drug rosuvastatin Pain in joints Unknown Lilibeth Allergy/416 calcium/[id number]( [facility] 117706[facility] 09/18/2018 Drug Tetracyclines/F0010 Upset Stomach Unknown Lilibeth Allergy/416 44613(RXNORM) Community 355717([facility] ED CT) Repository 09/18/2018 Drug tramadol/[id number] Diarrhea Unknown Lilibeth Allergy/416 (RXNORM) Community 064300([facility] ED CT) Repository 09/18/2018 Drug diltiazem/[id number] Unknown Unknown Hext Allergy/416 4(RXNORM) Community 168865([facility] ED CT) Repository 09/18/2018 Drug levofloxacin/I47773 Upset Stomach Unknown Hext Allergy/416 6299(RXNORM) Community 121944([facility] ED CT) Repository 05/13/2018 DRUG COLESTIPOL HCL GI UPSET [facility] INGREDI/419 Main [place] 594089(SNOM Repository ED CT) 10/31/2015 DRUG CARBAMAZEPINE DIARRHEA [facility] INGREDI/419 Main Honor 450369(SNOM Repository ED CT) 10/19/2015 DRUG DILTIAZEM RASH [facility] INGREDI/419 Main [place] 424916(SNOM Repository ED CT) 04/28/2015 DRUG TRAMADOL DIARRHEA [facility] INGREDI/419 Main Honor 610805(SNOM Repository ED CT) 01/24/2011 DRUG ROSUVASTATIN OTHER: SEE C [facility] INGREDI/419 CALCIUM Main [facility] 235311(SNOM Repository ED CT) 11/21/2009 DRUG/853095 MEPERIDINE (PF) GI UPSET [facility] 003(SNOMED Main Honor CT) Repository 11/21/2009 DRUG LEVOFLOXACIN GI UPSET [facility] INGREDI/419 Main Honor 345988(SNOM Repository ED CT) 02/14/2006 DRUG TETRACYCLINE GI UPSET [facility] INGREDI/419 Main Honor 803658(SNOM Repository ED CT) ENCOUNTERS ENCOUNTERS ADMIT/DISCHARGE ACCOUNT ADMITTING ENCOUNTER LOCATION SOURCE NUMBER CLASS 10/10/2018 [id number] Ambulatory [facility] ing:[facility]SP Repository 09/18/2018/09/18/20 [id number] Ambulatory BMSBuilding:B Hext 18 [facility] Repository 09/12/2018 [id number] Ambulatory [facility] ing:[facility] Repository 08/28/2018/08/28/20 [id number] Ambulatory BMSBuilding:B Lilibeth 18 [facility] Repository 08/14/2018/08/15/20 [id number] Ambulatory [address] Repository 05/23/2018/05/26/20 [id number] Ambulatory [address] Repository 05/13/2018/06/04/20 [id number] Ambulatory [address] Repository 03/19/2018 [id number] Ambulatory [facility] Repository 03/01/2018/03/01/20 [id number] Ambulatory [address] Repository 03/01/2018/03/04/20 [id number] Ambulatory [address] Repository 02/24/2018 [id number] Ambulatory BMSBuilding:Anel Mcelroy [facility] Repository 02/21/2018/02/22/20 [id number] Ambulatory BMSBuilding:Anel Mcelroy 18 [facility] Repository 02/18/2018 [id number] Ambulatory [facility] Repository 02/07/2018 [id number] Ambulatory BMSBuilding:Anel Mcelroy [facility] Repository 12/30/2017/12/31/19 [id number] Ambulatory [address] Repository 12/27/2017/12/31/19 [id number] Ambulatory Lilibeth [address] ing:CR Repository 12/27/2017/12/28/19 [id number] Ambulatory [address] Repository 12/19/2017/12/24/19 [id number] Ambulatory [address] Repository 12/16/2017/12/17/19 [id number] Ambulatory [address] Repository 12/11/2017/12/11/19 [id number] Ambulatory Lilibeth [address] [facility] ing:CR Repository 12/09/2017/12/09/19 [id number] GEORGE, Ambulatory [address] Repository 11/13/2017/11/13/19 [id number] Ambulatory Hext Lilibeth[address] [facility] ing:CR Repository 11/06/2017/11/06/19 [id number] Ambulatory [address] Repository 11/06/2017/11/08/19 [id number] Ambulatory [address] Repository 10/31/2017 [id number] Ambulatory [facility] Repository 10/11/2017/10/13/20 [id number] Ambulatory Hext Lilibeth 17 [facility] ing:CR Repository 10/09/2017 [id number] Ambulatory [facility] Repository 10/03/2017/10/03/20 [id number] Ambulatory BMSBuilding:B Hext 17 [facility] Repository PAYERS PAYERS ENCOUNTER GUARANTOR PAYER SUBSCRIBER SOURCE 10/10/2018 PATRICIA P Primary PATRICIA P Hext [id number] Insurance:MEDICAL PHIPPSDOB: [facility] [id number] Number: Repository [address]Hst: 330 [id number] [phone] (HP) Date:3955-12-48LD [address] [place] [phone]: 10/10/2018 Secondary NOT GIVENUNK Lilibeth Insurance:SELF PAY [facility] Number: Effective Repository Date:2018-09-16 09/18/2018 PATRICIA P Primary PATRICIA P Lilibeth [id number] Insurance:MEDICAL PHIPPSDOB: [facility] [id number] [address] Number: Repository [address]Xia: 330 [id number] [phone] (HP) Date:5544-91-31QA [address] [place] [phone]: 09/18/2018 Secondary NOT GIVENUNK Lilibeth Insurance:SELF PAY [facility] Number: Effective Repository Date:2018-09-18 09/12/2018 PATRICIA P Primary PATRICIA P Lilibeth [id number] Insurance:MEDICAL PHIPPSDOB: [facility] [id number] Number: Repository [address]Dws: 330 [id number] [phone] (HP) Date:1488-58-09WX [address] [place] [phone]: 09/12/2018 Secondary NOT GIVENUNK Hext Insurance:SELF PAY [facility] Number: Effective Repository Date:2018-09-02 08/28/2018 Patricia P Primary PATRICIA P Hext [id number] Insurance:MEDICAL PHIPPSDOB: [facility] [id number] Number: Repository [id number]: [phone] [id number] [phone] () Date:5083-33-21BB [address] [place] [phone]: 08/28/2018 Secondary NOT GIVENUNK Lilibeth Insurance:SELF PAY [facility] Number: Effective Repository Date:2018-08-28 02/24/2018 Patricia P Primary PATRICIA P Lilibeth [id number] Insurance:MEDICAL PHIPPSDOB: [facility] [id number] Number: Repository [address]Rnn: 330 [id number] [phone] () Date:2098-30-16QM [address] [phone]: 02/24/2018 Secondary NOT GIVENUNK Hext Insurance:SELF PAY [facility] Number: Effective Repository Date:2017-09-24 02/21/2018 Patricia P Primary PATRICIA P Lilibeth [id number] Insurance:MEDICAL PHIPPSDOB: [facility] [id number] Number: Repository [address]Ylk: 330 [id number] [phone] () Date:4805-82-68SU [address] [place] [phone]: 02/21/2018 Secondary NOT GIVENUNK Lilibeth Insurance:SELF PAY [facility] Number: Effective Repository Date:2018-02-21 02/18/2018 Patricia P Primary PATRICIA P Lilibeth [id number] Insurance:MEDICAL PHIPPSDOB: [facility] [id number] Number: Repository [id number]: 330 [id number] [phone] (HP) Date:1461-51-77HL [address] [place] [phone]: 02/18/2018 Secondary NOT GIVENUNK Hext Insurance:SELF PAY [facility] Number: Effective Repository Date:2018-02-18 02/07/2018 Patricia P Primary PATRICIA P Hext [id number] Insurance:MEDICAL PHIPPSDOB: [facility] [id number] Number: Repository [address]Ycq: 330 [id number] [phone] (HP) Date:3110-38-05DJ [address] [place] [phone]: 02/07/2018 Secondary NOT GIVENUNK Lilibeth Insurance:SELF PAY [facility] Number: Effective Repository Date:2017-10-03 12/27/2017 Patricia P Primary PATRICIA P Hext [id number] Insurance:MEDICAL PHIPPSDOB: [facility] [id number] Number: Repository [id number]: 330 [id number] [phone] () Date:4417-06-42HV [address] [phone]: 12/27/2017 Secondary NOT GIVENUNK Hext Insurance:SELF PAY [facility] Number: Effective Repository Date:2017-12-12 12/11/2017 Patricia P Primary PATRICIA P Hext [id number] Insurance:MEDICAL PHIPPSDOB: [facility] [id number] Number: Repository [id number]: 330 [id number] [phone] () Date:3506-29-12CF [address] [place] [address]QY: 12/11/2017 Secondary NOT GIVENUNK Hext Insurance:SELF PAY [facility] Number: Effective Repository Date:2017-11-14 11/13/2017 Patricia P Primary PATRICIA P Lilibeth [id number] Insurance:MEDICAL PHIPPSDOB: [facility] [id number] Number: Repository [id number]: [phone] [id number] [phone] (HP) Date:3372-06-35JY [address] [place] [phone]: 11/13/2017 Secondary NOT GIVENUNK Hext Insurance:SELF PAY [facility] Number: Effective Repository Date:2017-10-14 10/11/2017 Patricia P Primary PATRICIA P Lilibeth [id number] Insurance:MEDICAL PHIPPSDOB: [facility] [id number] Number: Repository [id number]: [phone] [id number] [phone] (HP) Date:9633-04-52FK [address] [place] [phone]: 10/11/2017 Secondary NOT GIVENUNK Lilibeth Insurance:SELF PAY [facility] Number: Effective Repository Date:2017-09-26 10/03/2017 Patricia P Primary PATRICIA P Hext [id number] Insurance:MEDICAL PHIPPSDOB: [facility] [id number] Number: Repository [id number]: [phone] [id number] [phone] (HP) Date:3390-23-06FU [address] [place] [phone]: 10/03/2017 Secondary NOT GIVENUNK Hext Insurance:SELF PAY [facility] Number: Effective Repository Date:2017-09-14
== END ==
PROVIDERS: Family Provider Internal Medicine; PCP Internal Medicine; Referring Provider Nurse Practitioner Family; Visit Provider Nurse Practitioner Family
DX: R07.9 Chest pain, unspecified (principal); I25.10 Atherosclerotic heart disease of native coronary artery without angina pectoris; I73.9 Peripheral vascular disease, unspecified; I10 Essential (primary) hypertension; F17.210 Nicotine dependence, cigarettes, uncomplicated; Z95.9 Presence of cardiac and vascular implant and graft, unspecified
CPT/HCPCS: 78452; 93017; 93923; A9500; A4216; J2785

== ENCOUNTER 2018-10-10 07:52 | Day surgery (SDC) | payer OTHER, SELFPAY ==
[2018-08-28 11:13] VITALS: BMI 32.4
[2018-09-18 11:42] VITALS: BMI 31.7
--- NOTE | 2018-09-18 12:15 | RAD_ITS ---
STUDY: X-RAY CHEST REASON FOR EXAM: Female, 58 years old. Abnormal stress test and chest pain TECHNIQUE: Frontal and lateral views of the chest. COMPARISON: 09/03/2017 FINDINGS: Clip in the right breast. The lungs are clear and expanded. There is no demonstrated pleural abnormality. Normal size heart. Normal mediastinum and caroline. Normal visualized pulmonary arteries. Normal visualized aortic arch and descending thoracic aorta. Normal visualized thoracic spine. Normal visualized ribs, clavicles, and shoulders. There is no demonstrated abnormality of the visualized soft tissue structures of the upper abdomen. RAD/Chest PA and Lateral IMPRESSION: No acute pulmonary findings. Electronically Signed: Bismark Wei MD at 8:44 EST Tel , Service support ,
[2018-09-18 13:43] LABS: Hematocrit 39.8 % (37-47); Mean Corp Hgb Conc 32.7 g/gl (32-36); Mean Corpuscular Hgb 28.3 pg (27.0-32.0); Mean Corpuscular Volume 86.7 fL (81-99); Mean Platelet Vol. 10.8 fl (6.2-12.0); Platelet Count 204 K/mm3 (150-450); RBC Distribution Width CV 14.1 % (11.6-14.6); RBC Distribution Width SD 43.9 fl (35.1-43.9); Red Blood Count 4.59 M/mm3 (4.2-5.4); White Blood Count 7.3 K/mm3 (4.4-11.0)
[2018-09-18 13:46] LABS: Scan Indicated on CBC? Y/N NO
[2018-09-18 13:55] LABS: Partial Thromboplast Time 27.2 Seconds (24.1-36.2); Prothrombin Time (Protime)PT. 13.3 SECONDS (11.7-14.9)
[2018-09-18 14:13] LABS: Anion Gap 7 (5-15); BUN 8 mg/dL (7-18); BUN/Creat Ratio 11.1 RATIO (10-20); Calcium,Total 8.7 mg/dL (8.5-10.1); Chloride 105 mmol/L (98-107); Creatinine, Serum 0.72 mg/dL (0.55-1.02); EST Glomerular Filtration Rate 88 mL/min (>60); Est Glom Filt Rate - Afr Amer 107 mL/min (>60); Glucose 134 mg/dL (74-106); Potassium 4.3 mmol/L (3.5-5.1); Sodium Level 140 mmol/L (136-145)
[2018-10-08 10:50] VITALS: BMI 31.7
[2018-10-10] VITALS (16 sets, daily range): BP systolic 109–172; BP diastolic 47–78; PULSE 48–63; RESP 12–22; TEMP 36.7–36.8; O2SAT 93–98; BMI 33.0; BMI 32.9
--- NOTE | 2018-10-10 10:44 | CL.D_ITS ---
Patient Name: MICKI PACK Study Date: 10/10/2018 Performing: Isac Davila MD Ht: 64.17 inches 163 cm : 1960 Wt: 185.19 lbs 84 kg Age: 58 Gender: female BSA: 1.9 PROCEDURE(S) PERFORMED LA80-SJY/COR/LV CLINICAL PROFILE AND INDICATIONS Indications: Suspected CAD Heart Failure: None Stress/Imaging Stress Test w/SPECT MPI: Yes Result: PositiveStress Test with SPECT MPI: Positive Angina Classification Anginal Classification w/in 2 Weeks: CCS III CAD Presentations: Stable angina. CONCLUSIONS Elevated Left Ventricular End Diastolic Pressure Normal LV size, wall motion,and systolic function LVEF: by LV gram 60 % [place] Multivessel CAD RECOMMENDATIONS Risk factor modification Medical therapy Referred for immediate PCI DESCRIPTION OF PROCEDURE The patient arrived to the procedure lab. The risks and benefits of the procedure as well as a full d escription of our services here and current unavailability of surgical backup were fully explained to the patient and/or their significant other prior to the catheterization. The Timeout was completed, verifying the correct patient and procedure. The patient's procedural site was prepped and draped in the usual fashion. Local anesthetic was given subcutaneously to right radial region with Lidocaine 2% . Using a modified Seldinger technique, arterial access was obtained via the right radial artery, a 6 Fr sheath was inserted. Left Coronary Artery selective angiography was performed in multiple views u sing a 5 Fr. 4.0 [place] catheter. Right Coronary Artery selective angiography was then performed in mu ltiple views using a 5 Fr. 4.0 [place] catheter. Left Ventriculography was performed in [place] projection using a 5 Fr. Pigtail catheter. LV to AO pullback pressures were then recorded.The arterial sheath was pulled and a TR Band was applied for hemostasis. 16cc of air CORONARY ANGIOGRAPHY DOMINANCE: Left Dominant LEFT HEART ASSESSMENT Left Ventricular Ejection Fraction: by LV Gram 60 % Normal LV wall motion Elevated Left Ventricular End Diastolic Pressure LVEDP: 26 mmHg LEFT MAIN: Angiographically normal LEFT ANTERIOR DECENDING ARTERY: PROX LAD: Previously placed stent is patent MID LAD: S/P stent: Eccentric: Hazy: 75 % Stenosis DIAGONAL 1: Proximal - Mild luminal irregularities CIRCUMFLEX ARTERY: MID CIRC: Mild luminal irregularities OM 1: Proximal - Mild luminal irregularities OM 2: Proximal - Eccentric: 50 % Stenosis, Mid - Diffuse: Irregular: 50 % Stenosis OM 3: Proximal - Pre Stent: Eccentric: 50-75 % Stenosis, Proximal - Previously placed stent is patent RIGHT CORONARY ARTERY: Small: Non Dominant: Diffuse Severe Stenosis VALVE FINDINGS: Normal Aortic Valve function Normal Mitral Valve function AORTIC ROOT: Angiographically normal COMPLICATIONS No Complications PROCEDURE MEDICATIONS Versed 1 mg IV Versed 1 mg IV Oxygen: 2 L/min via nasal cannula Angiomax Bolus 12.8 ml's 10/10/2018 10:21:21 Angiomax 5mg / ml @ 29.4 ml/hr IV started @ 10/10/2018 10:21:56 Heparin diluted in 23cc Heparinized saline. Patient given 10cc IA of this solution. 10/10/2018 09:58 :11 Verapamil 2.5mg, Ntg 100mcgs, 2000 units of Heparin diluted in 23cc Heparinized saline. Patient give n 10cc IA of this solution. 10/10/2018 09:58:11 SUMMARY OF HEMODYNAMIC DATA Time AIR REST ECG 08:16:56 AO 136/69 (96) SA 10:00:40 LV 158/1, 30 10:07:07 LV 158/2, 26 10:07:13 LV 153/0, 26 10:08:06 LV 157/-2, 23 10:08:12 LVp 160/0, 28 10:08:19 AOp 162/70 (106) 10:08:24 Signed By Isac Davila MD On 10/10/2018 10:44:00 Isac Davila MD
--- NOTE | 2018-10-10 10:50 | CL.I_ITS ---
Patient Name: MICKI PCAK Study Date: 10/10/2018 Performing: Luiz Dawn MD Ht: 64.17 inches 163 cm : 1960 Wt: 185.19 lbs 84 kg Age: 58 Gender: female BSA: 1.9 PROCEDURE(S) PERFORMED [id number] W OR WO PTCA, SINGLE CORONARY ARTERY CLINICAL PROFILE AND CO-MORBIDITIES Indications: Suspected CAD Heart Failure: None Stress/Imaging Stress Test w/SPECT MPI: Yes Result: Positive Stress Test with SPECT MPI: Positive Angina Classification Anginal Classification w/in 2 Weeks: CCS III CAD Presentations: Stable angina. CONCLUSIONS Successful BEAU RECOMMENDATIONS Follow up with Dr. Davila DESCRIPTION OF PROCEDURE The patient arrived to the procedure lab. The risks and benefits of the procedure as well as a full d escription of our services here and current unavailability of surgical backup were fully explained to the patient and/or their significant other prior to the catheterization. The Timeout was completed, verifying the correct patient and procedure. The patient's procedural site was prepped and draped in the usual fashion. Local anesthetic was given subcutaneously to right radial region with Lidocaine 2% Using a modified Seldinger technique,arterial access was obtained via the right radial artery, a 6Fr sheath was inserted. Left Coronary Artery selective angiography was performed in multiple views usin g a 5 Fr. 4.0 [place] catheter. Right Coronary Artery selective angiography was then performed in multi ple views using a 5 Fr. 4.0 [place] catheter. Left Ventriculography was performed in [place] projection usi ng a 5 Fr. Pigtail catheter. LV to AO pullback pressures were then recorded.The images were reviewed and options discussed. A decision was then made to proceed with an Intervention, IVUS o r other adjunct procedure. JL 3.5 Guide catheter was inserted and engaged into the LCA. BMW Guide wire was advanced to the L AD. 2.5x18 Resolute Drug Eluting stent was inserted. Drug Eluting stent was advanced across the lesio n in the LAD, mid. Angiogram performed post stent deployment. Angiogram performed post stent deployme nt. The arterial sheath was pulled and a TR Band was applied for hemostasis. 16cc of air INTERVENTION INFORMATION LESION SITE: LAD (Mid) Lesion Complexity: Non-High/Non-C, chronic total occlusion: No, lesion at bifurcation: No, thrombus p resent: No, lesion length: 10 mm, culprit lesion: Yes, In-stent restenosis: No Pre Stenosis: 80 % Pre intervention BOO flow: 3 PROCEDURE: Drug Eluting Stent Post Stenosis: 0 % Post intervention BOO flow: 3 Lesion Devices: Medtronic 6 Fr JL3.5 100cm Guide Catheter Perez .014 BMW Hunt Straight 190cm Medtronic Resolute RX BEAU 2.5x18 COMPLICATIONS No Complications PROCEDURE MEDICATIONS Versed 1 mg IV Versed 1 mg IV Oxygen: 2 L/min via nasal cannula Angiomax Bolus 12.8 ml's 10/10/2018 10:21:21 Angiomax 5mg / ml @ 29.4 ml/hr IV started @ 10/10/2018 10:21:56 Heparin diluted in 23cc Heparinized saline. Patient given 10cc IA of this solution. 10/10/2018 09:58 :11 Verapamil 2.5mg, Ntg 100mcgs, 2000 units of Heparin diluted in 23cc Heparinized saline. Patient give n 10cc IA of this solution. 10/10/2018 09:58:11 SUMMARY OF HEMODYNAMIC DATA Time AIR REST ECG 08:16:56 AO 136/69 (96) SA 10:00:40 LV 158/1, 30 10:07:07 LV 158/2, 26 10:07:13 LV 153/0, 26 10:08:06 LV 157/-2, 23 10:08:12 LVp 160/0, 28 10:08:19 AOp 162/70 (106) 10:08:24 Signed By Luiz Dawn MD On 10/10/2018 10:49:52 Luiz Dawn MD
[2018-10-10] MEDS: 0.9% Normal Saline 1,000 ML 100 ML IV (11:00)
--- NOTE | 2018-10-10 13:15 | EKG12_ITS ---
Test Reason : POST PCI Blood Pressure : / mmHG Vent. Rate : 047 BPM Atrial Rate : 047 BPM P-R Int : 214 ms QRS Dur : 086 ms QT Int : 462 ms P-R-T Axes : 065 -08 001 degrees QTc Int : 408 ms Sinus bradycardia with 1st degree A-V block Low voltage QRS Borderline ECG Confirmed by SARAH FOUNTAIN, ISAC ([id number]), video news editor MIGUEL GALDAMEZ ([id number]) on 10/15/2018 3:11:03 PM Referred By: Isac Smith Confirmed By:ISAC SMITH MD
--- NOTE | 2018-10-10 13:36 | CRPHASE1 ---
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:: Isac Davila PCP:: Angelique Tejada Date/Diagnosis #1:: 10/10/2018 Heart cath w/Int/PCI Phase II Referral:: [facility] Risk Factors/Lifestyle Smoking Status: Current every day smoker Hx Hypertension: Yes Hx Diabetes Mellitus Type 2: Yes Hx Dyslipidemia: Yes Hx Obesity: Yes Height: 5 ft 5 in Weight:: 198 lb BMI: 32.9 Stress: Recent, Long-standing Family History: Family History (Last Reviewed 09/18/18 @ 11:45 by Eleanor Buenrostro) Mother CAD (coronary artery disease) Mother CVA (cerebral vascular accident) Diabetes Brother Myocardial infarction Cancer History of PTCA Diabetes Past Cardiac Illness: Coronary Artery Disease, Previous PCI w/Stent Phase I Education Given On:: [place], Nutrition, Antiplatelet medication, CHF, Smoking cessation, Diabetes - Type I, Diabetes - Type II Issues Affecting Care:: None Knowledge of Condition:: Yes Medical/Surgical History Angina:: Yes CAD:: Yes Asthma:: Yes Diabetes Type II:: Yes Hypertension:: Yes Dyslipidemia:: Yes Arrhythmias:: No PVD:: Yes Arthritis:: Yes GERD:: Yes Renal:: No Thyroid:: No PTCA:: Yes ICD:: No Pacemaker:: No Orthopedic:: Yes - bilateral knee replacement Discharge/Home/Social Eval Discharge Disposition: Home Marital Status:
--- NOTE | 2018-10-10 13:41 | CRPHASE1_ITS ---
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 PCP:: Angelique Tejada Date/Diagnosis #1:: 10/10/2018 Heart cath w/Int/PCI Phase II Referral:: [facility] Risk Factors/Lifestyle Smoking Status: Current every day smoker Hx Hypertension: Yes Hx Diabetes Mellitus Type 2: Yes Hx Dyslipidemia: Yes Hx Obesity: Yes Height: 5 ft 5 in Weight:: 198 lb BMI: 32.9 Stress: Recent, Long-standing Family History: Family History (Last Reviewed 09/18/18 @ 11:45 by Eleanor Buenrostro) Mother CAD (coronary artery disease) Mother CVA (cerebral vascular accident) Diabetes Brother Myocardial infarction Cancer History of PTCA Diabetes Past Cardiac Illness: Coronary Artery Disease, Previous PCI w/Stent Phase I Education Given On:: [place], Nutrition, Antiplatelet medication, CHF, Smoking cessation, Diabetes - Type I, Diabetes - Type II Issues Affecting Care:: None Knowledge of Condition:: Yes Medical/Surgical History Angina:: Yes CAD:: Yes Asthma:: Yes Diabetes Type II:: Yes Hypertension:: Yes Dyslipidemia:: Yes Arrhythmias:: No PVD:: Yes Arthritis:: Yes GERD:: Yes Renal:: No Thyroid:: No PTCA:: Yes ICD:: No Pacemaker:: No Orthopedic:: Yes - bilateral knee replacement Discharge/Home/Social Eval Discharge Disposition: Home Marital Status:
--- NOTE | 2018-10-10 13:43 | CRPH1.INSTRU ---
General Education CAD and cardiac anatomy and function:: Not instructed Explanation of diagnoses and procedures:: Not instructed Sign/Symptoms of TN:: Not instructed Antiplatelet therapy: Needs reinforcement Emergency procedures and activation of EMS: Not instructed Compliance of all prescribed medications: Needs reinforcement, Not instructed Smoking Patient Nicotine/Smoking Risk Factors Are:: Cigarettes - pt states she continues to smoke Nicotine/Smoking Response Code:: Not instructed Dyslipidemia Dyslipidemia Response Code:: Not instructed Overweight/Obesity Patient Overweight/Obesity Risk Factors Are:: Obesity - > or = 30 Overweight/Obesity:: Not instructed Hypertension Hypertension:: Not instructed - HX OF HTN Heart Disease Patient Heart Disease Risk Factors Are:: Previous cardiac event Heart Disease Response Code:: Not instructed Diabetes Diabetes:: Not instructed - TYPE II DIAB Metabolic Syndrome Metabolic Syndrome Response Code:: Not instructed Sedentary Sedentary Response Code:: Not instructed Stress Stress Response Code:: Needs reinforcement - PT ADMITS TO HAVING STRESS. PT IS A PREVIOUS CARDIAC REHAB PT AND IS FAMILIAR WITH THE PROGRAM.
--- NOTE | 2018-10-10 13:46 | CRPH1.INST_ITS ---
General Education CAD and cardiac anatomy and function:: Not instructed Explanation of diagnoses and procedures:: Not instructed Sign/Symptoms of HI:: Not instructed Antiplatelet therapy: Needs reinforcement Emergency procedures and activation of EMS: Not instructed Compliance of all prescribed medications: Needs reinforcement, Not instructed Smoking Patient Nicotine/Smoking Risk Factors Are:: Cigarettes - pt states she continues to smoke Nicotine/Smoking Response Code:: Not instructed Dyslipidemia Dyslipidemia Response Code:: Not instructed Overweight/Obesity Patient Overweight/Obesity Risk Factors Are:: Obesity - > or = 30 Overweight/Obesity:: Not instructed Hypertension Hypertension:: Not instructed - HX OF HTN Heart Disease Patient Heart Disease Risk Factors Are:: Previous cardiac event Heart Disease Response Code:: Not instructed Diabetes Diabetes:: Not instructed - TYPE II DIAB Metabolic Syndrome Metabolic Syndrome Response Code:: Not instructed Sedentary Sedentary Response Code:: Not instructed Stress Stress Response Code:: Needs reinforcement - PT ADMITS TO HAVING STRESS. PT IS A PREVIOUS CARDIAC REHAB PT AND IS FAMILIAR WITH THE PROGRAM.
[2018-10-10 17:11] LABS: Bedside Glucose 248 mg/dL (70-110)
--- NOTE | 2018-10-10 17:50 | PN.CARD_ITS ---
Subjectve: The patient is now status post diagnostic cardiac catheterization and subsequent LAD PCI. She appears to be resting comfortably. Objective: Vital Signs Temp Pulse Resp BP Pulse Ox 98.2 F 54 L 16 134/55 H 96 10/10/18 12:07 10/10/18 14:00 10/10/18 14:00 10/10/18 14:00 10/10/18 14:00 Oxygen Delivery Method Room Air Weight: 198 lb Body Mass Index (BMI) 33.0 Finger Stick Blood Glucose 173 Intake and Output for Last 24 Hours 10/08/18 10/09/18 10/10/18 23:59 23:59 23:59 Intake Total 340 / 340 Balance 340 / 340 General: Awake, Alert, Oriented x 3, Cooperative, No Acute Distress HEENT: Atraumatic, Normocephalic, PERRL, EOMI, Sclera Non Icteric Oral: Moist Mucosa Neck: Supple, Good ROM, No JVD Lungs: Clear to auscultation Cardiovascular: Regular Rhythm, Normal S1, Normal S2 Vascular: Normal Radial Pulses Abdomen: Bowel Sounds Present, Soft, Non Tender Extremities: No Cyanosis, No Clubbing, No edema Neurological: No Focal Motor or Sensory Deficit Psych/Mental Status: Appropriate Rhythm: Sinus rhythm Cardiac catheterization: Please see official report PCI: Please see official report Medical Necessity - Tobacco Use Smoking Status: Current every day smoker Assessment/Plan 1. CAD status post remote LAD and OM PTCA/stent now status post repeat LAD stent At the present time the patient has progressive coronary artery disease. She has been complaining of chest discomfort. She has had an abnormal stress nuclear imaging study suggesting ischemia in the anterior distribution. She is undergone reevaluation with diagnostic cardiac catheterization. There was concern about her LAD distal to her previous stent. She subsequently underwent additional LAD PTCA/stent. She will need to continue risk factor modification and medical management. She will need to continue with outpatient cardiovascular follow-up. She should consider outpatient cardiac rehabilitation therapy. 2. Hyperlipidemia She will continue risk factor evaluation care as deemed appropriate. 3. Hypertension She will continue have her blood pressure monitored. She will continue medical management. 4. Diabetes mellitus She has been counseled on the importance of a diabetic diet and taking diabetic medications as prescribed. At the present time she is refusing a diabetic diet and refusing additional medication such as insulin-on a as needed basis. This note was generated with Access Information Managementation software. It may contain incorrect words, spelling, and punctuation that were not noted in checking the note before signing.
[2018-10-10] MEDS: Pravastatin 80 MG Tablet PO (21:37)
[2018-10-10] MEDS: traZODone 50 MG Tablet 150 MG PO (21:37)
[2018-10-11] VITALS (10 sets, daily range): BP systolic 122–172; BP diastolic 51–85; PULSE 48–70; RESP 10–19; TEMP 37–37.1; O2SAT 92–96
[2018-10-11 05:43] LABS: Absolute Lymphocyte Count 1.65 X10^3/ul (0.83-4.51); Absolute Neutrophil Count 3.4 X10^3/uL (2.0-7.7); Basophil# 0.02 X10^3/uL; Basophil% 0.4 % (0-1); Eosinophil# 0.18 X10^3/uL; Eosinophils% 3.2 % (0-5); Hematocrit 33.2 % (37-47); Hemoglobin 10.9 g/dl (12.0-15.0); Lymphocyte # 1.65 X10^3/ul (4.0); Lymphocyte % 29.4 % (19-41); Mean Corp Hgb Conc 32.8 g/gl (32-36); Mean Corpuscular Hgb 28.8 pg (27.0-32.0); Mean Corpuscular Volume 87.6 fL (81-99); Mean Platelet Vol. 9.9 fl (6.2-12.0); Monocyte# 0.41 X10^3/uL; Monocyte% 7.3 % (0-10); Neutrophil # 3.36 X10^3/uL (2.7-7.7); Neutrophil % 59.7 % (47-70); Platelet Count 175 K/mm3 (150-450); RBC Distribution Width CV 14.2 % (11.6-14.6); RBC Distribution Width SD 44.3 fl (35.1-43.9); Red Blood Count 3.79 M/mm3 (4.2-5.4); White Blood Count 5.6 K/mm3 (4.4-11.0)
[2018-10-11 05:49] LABS: POSITIVE COUNT NO; POSITIVE DIFFERENTIAL NO; POSITIVE MORPHOLOGY NO
--- NOTE | 2018-10-11 05:55 | EKG12_ITS ---
Test Reason : AM EKG Blood Pressure : / mmHG Vent. Rate : 059 BPM Atrial Rate : 059 BPM P-R Int : 222 ms QRS Dur : 088 ms QT Int : 436 ms P-R-T Axes : 070 006 040 degrees QTc Int : 431 ms Sinus bradycardia with 1st degree A-V block Low voltage QRS Borderline ECG Confirmed by SARAH FOUNTAIN, ISAC ([id number]), newspaper editor MIGUEL GALDAMEZ ([id number]) on 10/15/2018 3:10:23 PM Referred By: Isac Smith Confirmed By:ISAC SMITH MD
[2018-10-11 05:56] LABS: Anion Gap 8 (5-15); BUN 9 mg/dL (7-18); BUN/Creat Ratio 13.4 RATIO (10-20); Calcium,Total 8.3 mg/dL (8.5-10.1); Chloride 111 mmol/L (98-107); Creatinine, Serum 0.67 mg/dL (0.55-1.02); EST Glomerular Filtration Rate 95 mL/min (>60); Est Glom Filt Rate - Afr Amer 115 mL/min (>60); Estimated Creatinine Clearance 80.35 ml/min; Glucose 143 mg/dL (74-106); Potassium 3.8 mmol/L (3.5-5.1); Sodium Level 144 mmol/L (136-145)
[2018-10-11 07:41] LABS: Bedside Glucose 148 mg/dL (70-110)
[2018-10-11] MEDS: Aspirin E.C. 81 MG Tablet PO (08:40)
[2018-10-11] MEDS: Metoprolol Tartrate 50 MG Tablet PO (08:40)
[2018-10-11] MEDS: Pantoprazole Sodium 40 MG Tablet PO (08:40)
[2018-10-11] MEDS: Clopidogrel Bisulfate 75 MG Tablet PO (08:40)
--- NOTE | 2018-10-11 11:05 | DCINST_ITS ---
- Discharge Diagnoses Current Active Problems: CAD status post remote LAD and OM PTCA/stent with chest discomfort and an abnormal stress nuclear imaging study now status post repeat cardiac catheterization with additional LAD PTCA/stent You will use the following diet at home:: Calorie/Carbohydrate Controlled (specify 1200, 1400, etc) - 1800-calorie diet Your food should be the consistency of: Regular Discharge Activity: May Drive - May not drive times 48 hours, May Shower - May shower today, May Take a Tub Bath - May not take a tub bath for 7 days May resume sexual activity in: 2 weeks Weight Bearing Status: - - Avoid heavy exertional activity times 2 weeks Call your doctor if your incision/area has: Continuous Slow Oozing, Sudden Increased Bleeding, Increased Pain/ Swelling, Increased Redness, Foul Smelling Discharge, Swelling at the incision site Call your doctor if you observe: Fever of 101 or Higher, Shortness of breath, Dizziness, Fainting spells, Swelling in the ankles, Chest pain, Increased palpitations (irregular heartbeat) Change Dressing in (Days):: 1 Remove Dressing in (days):: 1 Cleanse incision/area with: Soap & Water Additional Instructions: Hold metformin until 10/12/2018 AM and then resume. Outpatient blood test (BMP) on 10/13/2018-office staff to arrange Allergies/Adverse Reactions: Allergies diltiazem Allergy (Verified 10/08/18 10:51) Unknown levofloxacin [From Levaquin] Adverse Reaction (Verified 10/08/18 10:51) Upset Stomach meperidine HCl [From Demerol] Adverse Reaction (Verified 10/08/18 10:51) Vomiting rosuvastatin calcium [From Crestor] Adverse Reaction (Verified 10/08/18 10:51) Pain in joints Tetracyclines Adverse Reaction (Verified 10/08/18 10:51) Upset Stomach tramadol Adverse Reaction (Verified 10/08/18 10:51) Diarrhea Medications to take at Discharge Albuterol IH (ProAir) [Proair Hfa] 1 puff INHALATION Q6H PRN PRN 12/16/14 Metformin HCl [Glucophage] 1,000 mg PO BID 12/16/14 Trazodone HCl 150 mg PO QHS 12/16/14 Nitroglycerin [Nitrostat] 0.4 mg SUBLINGUAL Q5M PRN #25 tab 10/20/16 metoprolol tartrate 50 mg tablet 50 mg PO BID tab 02/21/18 pravastatin 80 mg tablet 80 mg PO DAILY 08/28/18 Aspirin E.C. [Ecotrin] 81 mg PO DAILY@0800 10/10/18 Clopidogrel Bisulfate [Plavix] 75 mg PO DAILY 10/10/18 Pantoprazole Sodium [Protonix] 40 mg PO DAILY 10/10/18 Aspirin E.C. [Ecotrin] 81 mg PO DAILY@0800 tablet 10/11/18 Clopidogrel Bisulfate [Plavix] 75 mg PO DAILY tablet 10/11/18 Metoprolol Tartrate [Lopressor (beta rayna)] 50 mg PO BID tablet 10/11/18 Pantoprazole Sodium [Protonix] 40 mg PO DAILY tablet 10/11/18 Pravastatin [Pravachol] 80 mg PO QHS tablet 10/11/18 traZODone [Desyrel] 150 mg PO QHS tablet 10/11/18 Primary Care Physician: Angelique Tejada MD [Primary Care Provider] - Test Results: Test results from this visit will be discussed in further detail at your follow- up appointment, if applicable. Please Follow Up With: Isac Davila MD When: [facility]: To contact the patient and arrange outpatient visit
--- NOTE | 2018-10-11 11:10 | DS.PCM_ITS ---
Discharge Date and Diagnosis Date of Admission: 10/10/18 Date of Discharge: 10/11/18 - Primary Discharge Diagnosis CAD status post remote LAD and OM PTCA/stent with chest pain and an abnormal stress nuclear imaging study now status post repeat LAD PTCA/stent - Secondary Discharge Diagnosis Chronic Problems (Last Reviewed 09/18/18 @ 11:45 by Eleanor Buenrostro) Claudication (Chronic) Hypertension (Chronic) Abnormal electrocardiogram (Chronic) Cardiac murmur (Chronic) Abnormal stress test (Chronic) Cigarette nicotine dependence (Chronic) Hyperlipemia, mixed (Chronic) Atherosclerosis of [place] coronary artery of [place] heart without angina pectoris (Chronic) LAD and OM PCI in October 2016:;LAD PCI in August 2017; Diabetes (Chronic) S/P angioplasty with stent (Chronic) PCI to LAD 2016 Hospital Course and Treatment Procedures: Cardiac catheterization, - - PCI: LAD PTCA/stent Summary of Care Provided: The patient is a 58 year old with a past medical history of hyperlipidemia, hypertension, CAD, status post remote LAD PCI/stent in OM PCI/stent, superimposed on diabetes mellitus, who has been undergoing outpatient cardiovascular evaluation for concerns of chest discomfort with subsequent findings of an abnormal stress nuclear imaging study. The patient presented for outpatient diagnostic cardiac catheterization. She was found to have progression of her LAD disease distal to her previous stent. She subsequently underwent additional LAD PCI/stent. She was monitored in the ICU overnight. She remains symptomatically and hemodynamically stable. She was counseled on appropriate cardiovascular risk factor evaluation and care and medical management of her multiple medical conditions. On 10/11/2018 it was felt the patient could be released home for continued outpatient cardiovascular follow- up. [] Subjective: The patient is awake and alert with no acute complaints. - Physical Exam General: Alert, Oriented x3, Cooperative, No apparent distress HEENT: Atraumatic, PERRLA, EOMI, Normocephalic Oral: Moist Mucosa Neck: No JVD Lungs: Clear to auscultation Cardiovascular: Regular rate, Normal S1, Normal S2 Abdomen: Bowel Sounds Present, Soft, Non Tender Extremities: No edema Neurological: Neuro grossly intact Psych/Mental Status: Appropriate Comment: Left radial artery site: Pulse 2+/4+: No obvious bruit or hematoma Vital Signs Temp Pulse Resp BP Pulse Ox 98.6 F 54 L 19 H 122/56 H 92 10/11/18 04:00 10/11/18 10:00 10/11/18 10:00 10/11/18 10:00 10/11/18 10:00 Oxygen Delivery Method Room Air Weight: 198 lb 10.184 oz Body Mass Index (BMI) 33.0 Finger Stick Blood Glucose 173 Intake and Output for Last 24 Hours 10/09/18 10/10/18 10/11/18 23:59 23:59 23:59 Intake Total 940 / 940 780 / 780 Balance 940 / 940 780 / 780 Laboratory Tests Past 24 Hrs 10/11/18 10/11/18 05:40 05:40 WBC 5.6 RBC 3.79 L Hgb 10.9 L Hct 33.2 L MCV 87.6 MCH 28.8 MCHC 32.8 RDW 14.2 RDW Differential 44.3 H Plt Count 175 MPV 9.9 Immature Gran % (Auto) 0.000 Neut % (Auto) 59.7 Lymph % (Auto) 29.4 [place] % (Auto) 7.3 Eos % (Auto) 3.2 Baso % (Auto) 0.4 Absolute Neuts (auto) 3.4 Absolute Lymphs (auto) 1.65 Total Counted Not Reportable Sodium 144 Potassium 3.8 Chloride 111 H Carbon Dioxide 25.0 Anion Gap 8 BUN 9 Creatinine 0.67 Estim Creat Clear Calc 80.35 Est GFR (MDRD) Af Amer 115 Est GFR (MDRD) Non-Af 95 BUN/Creatinine Ratio 13.4 Glucose 143 H Calcium 8.3 L POC Glucose 10/11/18 10/10/18 07:35 17:04 POC Glucose 148 H 248 H Discharge Diet: 1800 Calorie Control Diet Discharge Activity: May Drive - May not drive times 48 hours, May Shower - May shower today, May Take a Tub Bath - May not take a tub bath for 7 days May resume sexual activity in: 2 weeks Weight Bearing Status: - - Avoid heavy exertional activity times 2 weeks Call your doctor if your incision/area has: Continuous Slow Oozing, Sudden Increased Bleeding, Increased Pain/ Swelling, Increased Redness, Foul Smelling Discharge, Swelling at the incision site Call your doctor if you observe: Fever of 101 or Higher, Shortness of breath, Dizziness, Fainting spells, Swelling in the ankles, Chest pain, Increased palpitations (irregular heartbeat) Change Dressing in (Days):: 1 Remove Dressing in (days):: 1 Cleanse incision/area with: Soap & Water Home Medications: Medications to take at Discharge Albuterol IH (ProAir) [Proair Hfa] 1 puff INHALATION Q6H PRN PRN 12/16/14 Metformin HCl [Glucophage] 1,000 mg PO BID 12/16/14 Trazodone HCl 150 mg PO QHS 12/16/14 Nitroglycerin [Nitrostat] 0.4 mg SUBLINGUAL Q5M PRN #25 tab 10/20/16 metoprolol tartrate 50 mg tablet 50 mg PO BID tab 02/21/18 pravastatin 80 mg tablet 80 mg PO DAILY 08/28/18 Aspirin E.C. [Ecotrin] 81 mg PO DAILY@0800 10/10/18 Clopidogrel Bisulfate [Plavix] 75 mg PO DAILY 10/10/18 Pantoprazole Sodium [Protonix] 40 mg PO DAILY 10/10/18 Aspirin E.C. [Ecotrin] 81 mg PO DAILY@0800 tablet 10/11/18 Clopidogrel Bisulfate [Plavix] 75 mg PO DAILY tablet 10/11/18 Metoprolol Tartrate [Lopressor (beta rayna)] 50 mg PO BID tablet 10/11/18 Pantoprazole Sodium [Protonix] 40 mg PO DAILY tablet 10/11/18 Pravastatin [Pravachol] 80 mg PO QHS tablet 10/11/18 traZODone [Desyrel] 150 mg PO QHS tablet 10/11/18 Primary Care Physician: Angelique Tejada MD [Primary Care Provider] - Please Follow Up With: Isac Davila MD When: [facility]: To contact the patient and arrange outpatient visit Disposition: Home Minutes spent on discharge:: 45 Patient Condition:: Stable Medical Necessity - Tobacco Use Smoking Status: Current every day smoker Meaningful Use Info Meaningful Use Diagnoses (Choose all that apply): None applicable
== END 2018-10-11 11:31 | disposition home or self-care (01) ==
LOC: CLSP 07:53 → ICU 10:39
PROVIDERS: Family Provider Internal Medicine; PCP Internal Medicine; Referring Provider Internal Medicine Cardiovascular Disease; Visit Provider Internal Medicine Cardiovascular Disease
DX: I25.10 Atherosclerotic heart disease of native coronary artery without angina pectoris (principal); R07.89 Other chest pain; I10 Essential (primary) hypertension; E11.9 Type 2 diabetes mellitus without complications; R94.39 Abnormal result of other cardiovascular function study; E78.2 Mixed hyperlipidemia; R01.1 Cardiac murmur, unspecified; R94.31 Abnormal electrocardiogram [ECG] [EKG]; I73.9 Peripheral vascular disease, unspecified; Z95.5 Presence of coronary angioplasty implant and graft; Z79.899 Other long term (current) drug therapy; Z79.82 Long term (current) use of aspirin; F17.210 Nicotine dependence, cigarettes, uncomplicated; Z95.820 Peripheral vascular angioplasty status with implants and grafts
CPT/HCPCS: 36415; 71046; 80048; 82962; 85025; 85027; 85610; 85730; 92928; 93005; 93458; 97802; 99152; 99153; J7030; J7040; C1769; C1874; C1887; C1894; C9600; J0583; Q9967

== ENCOUNTER → 2018-10-16 11:47 | Outpatient (CLI) | payer OTHER, SELFPAY ==
[2018-10-10 11:09] VITALS: BMI 33.0
[2018-10-10 13:42] VITALS: BMI 32.9
[2018-10-16 13:38] LABS: Anion Gap 10 (5-15); BUN 11 mg/dL (7-18); Calcium,Total 8.9 mg/dL (8.5-10.1); Chloride 103 mmol/L (98-107); Creatinine, Serum 0.73 mg/dL (0.55-1.02); EST Glomerular Filtration Rate 86 mL/min (>60); Est Glom Filt Rate - Afr Amer 104 mL/min (>60); Glucose 147 mg/dL (74-106); Potassium 4.1 mmol/L (3.5-5.1); Sodium Level 142 mmol/L (136-145)
== END ==
PROVIDERS: Family Provider Internal Medicine; PCP Internal Medicine; Referring Provider Internal Medicine Cardiovascular Disease; Visit Provider Internal Medicine Cardiovascular Disease
DX: I25.10 Atherosclerotic heart disease of native coronary artery without angina pectoris (principal); E11.9 Type 2 diabetes mellitus without complications; Z95.9 Presence of cardiac and vascular implant and graft, unspecified
CPT/HCPCS: 36415; 80048

== ENCOUNTER 2019-02-01 15:26 | Emergency (ER) | payer OTHER, SELFPAY ==
[2018-10-10 13:42] VITALS: BMI 32.9
[2018-10-23 14:29] VITALS: BMI 33.0
[2019-02-01 15:26] VITALS: BP 153/70; PULSE 60; RESP 18; TEMP 37.4; O2SAT 97; BMI 32.2
--- NOTE | 2019-02-01 16:13 | CT_ITS ---
STUDY: CT ABDOMEN AND PELVIS WITH CONTRAST REASON FOR EXAM: Female, 58 years old. Right lower quadrant pain RADIATION DOSAGE (If Supplied By Facility): CTDIvol = ( 18.76 ) mGy, DLP = ( 1079.23 ) mGycm TECHNIQUE: Transaxial images were obtained from the dome of the diaphragm to the symphysis pubis with oral contrast. 100ML IV/Oral Isovue 300 was administered. Sagittal and coronal images were reconstructed. Individualized dose optimization techniques were used for this CT. COMPARISON: None FINDINGS: The visualized lung bases are unremarkable. The visualized portions of the heart are within normal limits. Normal liver. Cholecystectomy. Normal spleen. Normal pancreas. Normal bilateral adrenal glands. Normal right kidney. Normal left kidney. Normal visualized stomach. Normal small intestine. There are multiple colonic diverticula consistent with diverticulosis. The appendix is visualized and appears normal. Normal abdominal aorta. Normal inferior vena cava. Normal retroperitoneum. Broad 28 mm right bladder diverticulum. 32 x 26 mm lipoma in the right gluteus musculature. Normal abdominal wall. Normal osseous structures. CT/Abdomen/Pelvis WITH Contrast IMPRESSION: No CT evidence of acute abdominopelvic pathology. No evidence of appendicitis, acute intestinal pathology, or acute obstructive uropathy. Electronically Signed: Bismark Wei MD at 18:32 EDT Tel , Service support ,
[2019-02-01] MEDS: Ondansetron 4 MG/2 ML Vial IV (16:21)
[2019-02-01] MEDS: 0.9% Normal Saline 1,000 ML 150 ML IV (16:21)
[2019-02-01] MEDS: Morphine 4 MG/ML Syringe IV (16:21)
[2019-02-01 16:27] LABS: Bacteria 0 SEEN /hpf (None Seen); Mucous, Urine 0 SEEN /hpf (<or=2+); Red Blood Cells-Urine 0 SEEN /hpf (0-5)
[2019-02-01 16:32] LABS: Color, Urine Yellow (Yellow); Glucose, Dipstick Normal (Normal); Ketone-Dipstick Negative (Negative); Leukocyte Esterase-Dipstick 25 /ul (Negative); Nitrite-Dipstick Negative (Negative); Occult Blood-Urine Negative /ul (Negative); Protein-Dipstick 15 mg/dl (Negative); Specific Gravity, Urine 1.025 (1.002-1.030); Urine Bilirubin Dipstick Negative (Negative); Urine Clarity Sl. Cloudy (Clear); Urine Urobilinogen Normal (Normal)
[2019-02-01 16:34] LABS: Absolute Lymphocyte Count 1.42 X10^3/ul (0.83-4.51); Absolute Neutrophil Count 4.4 X10^3/uL (2.0-7.7); Basophil# 0.03 X10^3/uL; Basophil% 0.5 % (0-1); Eosinophil# 0.27 X10^3/uL; Eosinophils% 4.1 % (0-5); Hematocrit 38.4 % (37-47); Hemoglobin 12.6 g/dl (12.0-15.0); Lymphocyte # 1.42 X10^3/ul (4.0); Lymphocyte % 21.5 % (19-41); Mean Corp Hgb Conc 32.8 g/gl (32-36); Mean Corpuscular Hgb 28.3 pg (27.0-32.0); Mean Corpuscular Volume 86.1 fL (81-99); Mean Platelet Vol. 10.3 fl (6.2-12.0); Monocyte# 0.51 X10^3/uL; Monocyte% 7.7 % (0-10); Neutrophil # 4.38 X10^3/uL (2.7-7.7); Platelet Count 200 K/mm3 (150-450); RBC Distribution Width CV 14.1 % (11.6-14.6); RBC Distribution Width SD 44.7 fl (35.1-43.9); Red Blood Count 4.46 M/mm3 (4.2-5.4); White Blood Count 6.6 K/mm3 (4.4-11.0)
[2019-02-01 16:39] LABS: Anion Gap 8 (5-15); BUN 9 mg/dL (7-18); BUN/Creat Ratio 12.9 RATIO (10-20); Calcium,Total 8.6 mg/dL (8.5-10.1); Chloride 108 mmol/L (98-107); EST Glomerular Filtration Rate 91 mL/min (>60); Est Glom Filt Rate - Afr Amer 110 mL/min (>60); Glucose 127 mg/dL (74-106); Potassium 4.1 mmol/L (3.5-5.1); Sodium Level 142 mmol/L (136-145)
[2019-02-01 16:40] LABS: POSITIVE COUNT NO; POSITIVE DIFFERENTIAL NO; POSITIVE MORPHOLOGY NO
[2019-02-01 16:44] LABS: Squamous Epithelial Cells - UA 0-5 SEEN /hpf (5-10); White Blood Cells 0-5 SEEN /hpf (0-5)
[2019-02-01 17:41] VITALS: PULSE 87; RESP 16; O2SAT 98
[2019-02-01 19:00] VITALS: BP 118/78; PULSE 87; RESP 16; O2SAT 97
--- NOTE | 2019-02-01 19:08 | ED.DCSUM_ITS ---
- ER Visit Summary Date of Service: 02/01/19 Chief Complaint: Abdominal pain History of Present Illness: The patient is a 58 F with a one-month history of right lower quadrant abdominal pain. Pain is worsened over the past week and states it became much worse last evening. She denies nausea, vomiting, or diarrhea. Pain does not seem to fluctuate with food. Pain is not worse with movement. She does report decreased appetite and felt like she had chills last evening. Patient has had prior cholecystectomy, hysterectomy, both ovaries removed. She has had prior colonoscopies with evidence of polyps, pathology benign. Physical Examination: Blood pressure is 153/70, temperature 99.3, heart rate 60, respiratory rate 18, pulse ox 97% on room air. Head and neck examination is unremarkable. Heart is regular rate and rhythm. Lung sounds are clear. Abdomen is soft with moderate tenderness in the right lower quadrant. There is no guarding or rebound. Hypoactive bowel sounds are present. Test Results: CBC and chemistry studies are grossly unremarkable. Urinalysis normal. CT abdomen pelvis with p.o. and IV contrast reveals no acute pathology. Emergency Department Course and Treatment: Patient was given morphine, Zofran, and IV fluids. On repeat evaluation she is resting comfortably. Test results were discussed with patient and at bedside. She will be given analgesics and antiemetics for home. She is to follow-up with her primary care physician this coming week. She is to return for worsening symptoms or new concerns. Treatment Plan: [] Disposition: Discharge Impression: Abdominal pain, uncertain etiology This note was generated with [employer] dictation software. It may contain incorrect words, spelling, and punctuation that were not noted in review of the chart prior to signing ED Disposition - Plan for ED Patient: Referrals: Angelique Tejada MD [Primary Care Provider] -
--- NOTE | 2019-02-01 19:10 | DCINST.ED_ITS ---
ED Disposition - Plan for ED Patient: Disposition: Home or Assisted Living Instructions: ED Abdominal Pain Unkn Cause Prescriptions: Hydrocodone Bitart/Apap 5-325 [[place] 5MG-325MG] 1 tablet PO Q6H PRN PRN 3 Days #10 tablet PRN Reason: Pain Ondansetron [Zofran Odt] 4 mg PO Q8H PRN PRN #10 tablet PRN Reason: Nausea Referrals: Angelique Tejada MD [Primary Care Provider] - 5-7 Days
[2019-02-01 19:23] VITALS: BP 144/71; PULSE 54; RESP 18; O2SAT 95
== END 2019-02-01 19:25 | disposition home or self-care (01) ==
PROVIDERS: Emergency Provider Emergency Medicine; Family Provider Internal Medicine; PCP Internal Medicine
DX: R10.31 Right lower quadrant pain (principal); I25.10 Atherosclerotic heart disease of native coronary artery without angina pectoris; I10 Essential (primary) hypertension; J45.909 Unspecified asthma, uncomplicated; G47.33 Obstructive sleep apnea (adult) (pediatric); F32.9 Major depressive disorder, single episode, unspecified; F41.9 Anxiety disorder, unspecified; Z72.0 Tobacco use; Z79.84 Long term (current) use of oral hypoglycemic drugs; Z79.02 Long term (current) use of antithrombotics/antiplatelets; Z79.82 Long term (current) use of aspirin; Z79.899 Other long term (current) drug therapy; Z95.5 Presence of coronary angioplasty implant and graft; Z90.49 Acquired absence of other specified parts of digestive tract; Z90.710 Acquired absence of both cervix and uterus
CPT/HCPCS: 74177; 80048; 81001; 85025; 96361; 96374; 96375; 99283; J7040; Q9967; A4216; J2405

== ENCOUNTER 2019-03-04 06:47 | Day surgery (SDC) | payer OTHER, SELFPAY ==
[2018-10-10 13:42] VITALS: BMI 32.9
[2019-02-25 14:36] VITALS: BMI 31.6
[2019-02-25 16:34] LABS: Absolute Lymphocyte Count 1.43 X10^3/ul (0.83-4.51); Absolute Neutrophil Count 5.6 X10^3/uL (2.0-7.7); Basophil# 0.03 X10^3/uL; Basophil% 0.4 % (0-1); Eosinophil# 0.19 X10^3/uL; Eosinophils% 2.5 % (0-5); Hematocrit 39.7 % (37-47); Hemoglobin 12.8 g/dl (12.0-15.0); Lymphocyte # 1.43 X10^3/ul (4.0); Lymphocyte % 18.8 % (19-41); Mean Corp Hgb Conc 32.2 g/gl (32-36); Mean Corpuscular Hgb 27.8 pg (27.0-32.0); Mean Corpuscular Volume 86.3 fL (81-99); Mean Platelet Vol. 10.7 fl (6.2-12.0); Monocyte# 0.38 X10^3/uL; Neutrophil # 5.57 X10^3/uL (2.7-7.7); Neutrophil % 73.2 % (47-70); POSITIVE COUNT NO; POSITIVE DIFFERENTIAL NO; POSITIVE MORPHOLOGY NO; Platelet Count 185 K/mm3 (150-450); RBC Distribution Width CV 14.1 % (11.6-14.6); White Blood Count 7.6 K/mm3 (4.4-11.0)
[2019-02-25 16:46] LABS: Partial Thromboplast Time 25.5 Seconds (24.1-36.2); Prothrombin Time (Protime)PT. 13.4 SECONDS (11.7-14.9)
[2019-02-25 16:56] LABS: Anion Gap 6 (5-15); BUN 9 mg/dL (7-18); BUN/Creat Ratio 12.9 RATIO (10-20); Calcium,Total 8.8 mg/dL (8.5-10.1); Chloride 106 mmol/L (98-107); EST Glomerular Filtration Rate 91 mL/min (>60); Est Glom Filt Rate - Afr Amer 110 mL/min (>60); Glucose 125 mg/dL (74-106); Potassium 3.9 mmol/L (3.5-5.1); Sodium Level 141 mmol/L (136-145)
[2019-03-03 13:06] VITALS: BMI 31.6
[2019-03-04] VITALS (20 sets, daily range): BP systolic 91–127; BP diastolic 28–102; PULSE 44–67; RESP 12–20; TEMP 36.5–36.9; O2SAT 95–100; BMI 33.7
[2019-03-04 09:51] LABS: ACT Activated Clotting Time 202 sec (74-137)
--- NOTE | 2019-03-04 09:54 | CL.I_ITS ---
Patient Name: MICKI PACK Study Date: 03/04/2019 Performing: Sandeep Godoy MD Ht: 64.56 inches 164 cm : 1960 Wt: 187.39 lbs 85 kg Age: 58 Gender: female BSA: 1.91 PROCEDURE(S) PERFORMED [id number] W OR WO PTCA, SINGLE CORONARY ARTERY [id number] W OR WO PTCA, EACH ADD'L ARTERY, SAME MAJOR CLINICAL PROFILE AND CO-MORBIDITIES Indications: Worsening Angina, Suspected CAD, New Onset Angina <= 2 months, Stable Known CAD, LV Dysfunction Heart Failure: NYHA Class: 1, Newly Diagnosed: No, Heart Failure Type: Systolic Stress/Imaging Stress/Image Study Performed: No Stress/Image Study Performed: No Angina Classification Anginal Classification w/in 2 Weeks: CCS III CAD Presentations: Unstable angina. Unstable angina. Other: Dyspnea on exertion, dizziness. Comorbidities/Risk Factors: Hypertension Dyslipidemia Prior CHF Prior PCI CONCLUSIONS Successful PTCA/BEAU to proximal OM#2 with a 3.0 x 38 Promus Synergy, post dilated throughout with a 3 .0 x 12 NC Balloon; 75%-->0%, no dissection. Pt had similar chest pain symptoms with stent deploymen t. Successful PTCA/BEAU proximal OM#4 with a 2.25 x 12 Promus Synergy, 75%-->0%, no dissection. RECOMMENDATIONS Highly recommend quitting all tobacco products Follow up with primary it technical specialist Risk factor modification ASA Indefinitley Plavix for at least 12 months Routine post interventional care Refer for Outpatient Cardiac Rehab Manual sheath removal per protocol Follow up with Dr. Davila Successful Mynx Control closure of RFA. DESCRIPTION OF PROCEDURE The patient arrived to the procedure lab. The risks and benefits of the procedure as well as a full d escription of our services here and current unavailability of surgical backup were fully explained to the patient and/or their significant other prior to the catheterization. The Timeout was completed, verifying the correct patient and procedure. The patient's procedural site was prepped and draped in the usual fashion. Local anesthetic was given subcutaneously to right groin region with Lidocaine 2% Using a modified Seldinger technique,arterial access was obtained via the right femoral artery, a 4Fr sheath was inserted Left Coronary Artery selective angiography was performed in multiple views using a 4 Fr. JL4 catheter. Right Coronary Artery selective angiography was then performed in multiple vie ws using a 4 Fr. 3DRC catheter. Left Ventriculography was performed in HASKINS projection using a 4 Fr. P igtail catheter. LV to AO pullback pressures were then recorded.The images were reviewed and options discussed. A decision was then made to proceed with an Intervention, IVUS or other adjunc t procedure. Arterial sheath was exchanged for a 6 Fr Sheath. EBU 3.75 Guide catheter was inserted and engaged into the LCA. BMW Guide wire was advanced to the 2nd OM. 2.0 X 12 EMERGE Balloon catheter was insert ed. Balloon catheter was advanced across lesion in the second obtuse marginal, proximal PTCA balloon inflated at 6 atms for 12 secs. PTCA balloon inflated at 8 atms for 13 secs. PTCA balloon inflated at 8 atms for 12 secs. Angiogram performed post balloon dilatation. 3.0 X 38 SYNERGY Drug Eluting stent was inserted. Drug Eluting stent was advanced across the lesion in the second obtuse marginal, proxi mal Angiogram performed pre stent deployment. Angiogram performed post stent deployment. 3.0 X 12 NC EMERGE Balloon catheter was inserted. Balloon catheter was inserted post stent. Angiogram performed p ost balloon dilatation. 3.0 X 12 NC EMERGE Balloon catheter was inserted post stent. Angiogram perfor med post balloon dilatation. Guide wire was repositioned to the 4th OM 2.25 X 12 SYNERGY Drug Eluting stent was inserted. Drug Eluting stent was advanced across the lesion in the 4th obtuse marginal, proximal Angiogram performed pre stent deployment. Angiogram performed post stent deploymen t. Contrast was injected through the sheath and the Right Iliac and Femoral artery were assessed for possible closure device. The arterial sheath was pulled and a Mynx closure device was deployed for h [facility] INTERVENTION INFORMATION LESION SITE: 2nd OM (Proximal) Lesion Complexity: High/C, lesion at bifurcation: No, thrombus present: No, lesion length: 38 mm, cul prit lesion: Yes Pre Stenosis: 75 % Pre intervention BOO flow: 3 PROCEDURE: Drug Eluting Stent with pre and post dilatation Post Stenosis: 0 % Post intervention BOO flow: 3 Lesion Devices: Perez .014 BMW [place] Straight 190cm Medtronic 6 Fr EBU3.75 100cm Guide Catheter Satish Sci EMERGE MR 2.00x12 BALLOON Satish Sci Synergy MR BEAU 3.00x38 Satish Sci NC EMERGE MR 3.00x12 BALLOON LESION SITE: 4TH OM (Proximal) Lesion Complexity: Non-High/Non-C, lesion at bifurcation: No, lesion length: 12 mm, culprit lesion: N o Pre Stenosis: 75 % Pre intervention BOO flow: 3 Post Stenosis: 0 % Post intervention BOO flow: 3 Lesion Devices: Perez .014 BMW [place] Straight 190cm Medtronic 6 Fr EBU3.75 100cm Guide Catheter Satish Sci Synergy MR BEAU 2.25x12 COMPLICATIONS No Complications PROCEDURE MEDICATIONS Versed 1 mg IV Oxygen: 2 L/min via nasal cannula Nitro 200 mcg IC 03/04/2019 09:09:18 Nitro 200 mcg IC 03/04/2019 09:09:18 Nitro 200 mcg IC 03/04/2019 09:14:42 Nitro 200 mcg IC 03/04/2019 09:21:08 IV Bolus: .9 NaCl 500 ml total 03/04/2019 09:41:32 IV Fluids: .9 NaCl increased to WO ml/hr 03/04/2019 09:09:26 SUMMARY OF HEMODYNAMIC DATA Time AIR REST ECG 07:52:22 AO 127/59 (84) SA 08:45:44 LV 133/-8, 16 08:52:14 LV 129/-11, 11 08:52:21 LV 133/-10, 16 08:53:45 LV 136/-13, 9 08:53:52 LVp 136/-14, 6 08:54:03 AOp 138/53 (85) 08:54:08 AO 129/60 (88) 09:20:27 Signed By Sandeep Godoy MD On 03/04/2019 09:54:20 Sandeep Godoy MD
--- NOTE | 2019-03-04 10:22 | EKG12_ITS ---
Test Reason : POST PCI Blood Pressure : / mmHG Vent. Rate : 049 BPM Atrial Rate : 049 BPM P-R Int : 188 ms QRS Dur : 088 ms QT Int : 468 ms P-R-T Axes : 075 031 039 degrees QTc Int : 422 ms Marked sinus bradycardia with sinus arrhythmia Low voltage QRS Abnormal ECG When compared with ECG of 11-OCT-2018 05:01, ND interval has decreased Nonspecific T wave abnormality now evident in Anterior leads Confirmed by BRIGIDA SMITH ([id number]), communications editor MIGUEL GALDAMEZ ([id number]) on 03/11/2019 12:58:28 PM Referred By: Isac Davila Confirmed By:HUGO SMITH
[2019-03-04] MEDS: 0.9% Normal Saline 1,000 ML 150 ML IV (10:30)
--- NOTE | 2019-03-04 10:47 | CRPHASE1 ---
Patient Communication Former Patient:: Phase I - 10/10/2018, Phase II PHII Cardiac Rehab Discussed with Patient:: Yes Guide to Cardiac Rehab Given to Patient:: Yes Cardiac Rehab Facility Choice List Given to Patient:: Yes Choice Program [facility] CR PHII:: Communication Given to CR, Refer to [facility] Vehicle Controls Engineer:: Sandeep Godoy Refer Phase II Cardiac Rehab:: Yes - [facility] Sessions:: 36 sessions - 3 days/wk, 12 weeks Risk Factors/Lifestyle Family History: Family History (Last Reviewed 02/25/19 @ 14:38 by Iwona Valdez) Mother CVA (cerebral vascular accident) Diabetes CAD (coronary artery disease) Brother Myocardial infarction Cancer History of PTCA Diabetes Cardiac Rehabilitation Info Cardiac Rehabilitation Program Information: Cardiac Rehabilitation is important for patients like you who are recovering from a heart problem. Cardiac rehabilitation programs are recognized as integral to the continued care of the patient with coronary heart disease. The cardiac rehabilitation program is designed to optimize a patient's physical, psychological, and social functioning. Health healthcare liaison work in cardiac rehabilitation programs and assist you with getting the treatments you need to get stronger and healthier - like exercise, healthy eating habits, and medications. Cardiac rehabilitation has been show to help people with heart problems live longer and have better life enjoyment than people who do not go to cardiac rehabilitation. Please contact the Cardiac Rehabilitation Program at [facility] at in two weeks if you have not heard from them.
--- NOTE | 2019-03-04 10:49 | CRPH1.INSTRU ---
General Education CAD and cardiac anatomy and function:: Not instructed Explanation of diagnoses and procedures:: Not instructed Sign/Symptoms of MD:: Not instructed Antiplatelet therapy: Not instructed Proper use of NTG-SL: Not instructed Emergency procedures and activation of EMS: Not instructed Compliance of all prescribed medications: Not instructed - Previous Phase I and II
[2019-03-04] MEDS: Acetaminophen 325 MG Tablet 650 MG PO (11:27)
[2019-03-04] MEDS: Morphine 2 MG/ML Syringe IV (11:27)
[2019-03-04] MEDS: Pantoprazole Sodium 40 MG Tablet PO (11:27)
[2019-03-04 11:31] LABS: Bedside Glucose 150 mg/dL (70-110)
[2019-03-04 17:30] LABS: Bedside Glucose 121 mg/dL (70-110)
[2019-03-04] MEDS: traZODone 50 MG Tablet 150 MG PO (21:54)
[2019-03-04] MEDS: Pravastatin 80 MG Tablet PO (21:54)
[2019-03-04 22:40] LABS: Bedside Glucose 167 mg/dL (70-110)
[2019-03-05] VITALS (15 sets, daily range): BP systolic 94–136; BP diastolic 28–73; PULSE 48–73; RESP 13–19; TEMP 36.9–37; O2SAT 95–98
[2019-03-05 01:50] LABS: Bedside Glucose 164 mg/dL (70-110)
[2019-03-05 04:30] LABS: Hematocrit 32.8 % (37-47); Hemoglobin 10.7 g/dl (12.0-15.0); Mean Corp Hgb Conc 32.6 g/gl (32-36); Mean Corpuscular Volume 85.9 fL (81-99); Mean Platelet Vol. 10.9 fl (6.2-12.0); Platelet Count 151 K/mm3 (150-450); RBC Distribution Width SD 42.7 fl (35.1-43.9); Red Blood Count 3.82 M/mm3 (4.2-5.4); White Blood Count 5.7 K/mm3 (4.4-11.0)
[2019-03-05 04:32] LABS: Scan Indicated on CBC? Y/N NO
[2019-03-05 04:47] LABS: Anion Gap 5 (5-15); BUN 9 mg/dL (7-18); BUN/Creat Ratio 12.6 RATIO (10-20); Calcium,Total 8.1 mg/dL (8.5-10.1); Chloride 111 mmol/L (98-107); Cholesterol 164 mg/dL (200); Creatinine, Serum 0.71 mg/dL (0.55-1.02); EST Glomerular Filtration Rate 89 mL/min (>60); Est Glom Filt Rate - Afr Amer 107 mL/min (>60); Estimated Creatinine Clearance 72.76 ml/min; Glucose 138 mg/dL (74-106); High Density Lipoprotein 35 mg/dL; Potassium 3.8 mmol/L (3.5-5.1); Sodium Level 144 mmol/L (136-145); Triglycerides 322 mg/dL; Very Low Density Lipoprotein 64 mg/dL (5-40)
--- NOTE | 2019-03-05 07:30 | PCM.DC.CCA ---
<Isac Davila - Last Filed: 03/05/19 09:49> Additional Instructions: Stop Isosorbide / Imdur Start Lisinopril 5 mg by mouth once daily (office to send prescription to local pharmacy) Allergies/Adverse Reactions: Allergies diltiazem Allergy (Verified 02/25/19 14:36) Unknown levofloxacin [From Levaquin] Adverse Reaction (Verified 02/25/19 14:36) Upset Stomach meperidine HCl [From Demerol] Adverse Reaction (Verified 02/25/19 14:36) Vomiting rosuvastatin calcium [From Crestor] Adverse Reaction (Verified 02/25/19 14:36) Pain in joints Tetracyclines Adverse Reaction (Verified 02/25/19 14:36) Upset Stomach tramadol Adverse Reaction (Verified 02/25/19 14:36) Diarrhea Medications to take at Discharge RX: Albuterol IH (ProAir) [Proair Hfa] 1 puff INHALATION Q6H PRN PRN 12/16/14 RX: Metformin HCl [Glucophage] 1,000 mg PO BID 12/16/14 RX: Nitroglycerin (INPATIENT USE) [Nitrostat] 0.4 mg SUBLINGUAL Q5M PRN #25 tab 10/20/16 RX: Aspirin E.C. [Ecotrin] 81 mg PO DAILY@0800 tab 10/11/18 RX: Clopidogrel Bisulfate [Plavix] 75 mg PO DAILY tab 10/11/18 RX: Pantoprazole Sodium [Protonix] 40 mg PO DAILY tab 10/11/18 RX: Pravastatin [Pravachol] 80 mg PO QHS tab 10/11/18 RX: traZODone [Desyrel] 150 mg PO QHS tab 10/11/18 metoprolol tartrate 50 mg tablet 50 mg PO BID #180 tab 02/16/19 lisinopril 5 mg tablet 5 mg PO QDAY #30 tab 03/05/19 Primary Care Physician: Angelique Tejada MD [Primary Care Provider] - Test Results: Test results from this visit will be discussed in further detail at your follow-up appointment, if applicable. Please Follow Up With: Lucian Bailey NP-C When: March 19, 2019: 08:30 AM Cardiac Rehabilitation Info Cardiac Rehabilitation Program Information: Cardiac Rehabilitation is important for patients like you who are recovering from a heart problem. Cardiac rehabilitation programs are recognized as integral to the continued care of the patient with coronary heart disease. The cardiac rehabilitation program is designed to optimize a patient's physical, psychological, and social functioning. Health acute care nursing assistant work in cardiac rehabilitation programs and assist you with getting the treatments you need to get stronger and healthier - like exercise, healthy eating habits, and medications. Cardiac rehabilitation has been show to help people with heart problems live longer and have better life enjoyment than people who do not go to cardiac rehabilitation. Please contact the Cardiac Rehabilitation Program at [facility] at in two weeks if you have not heard from them. <LynnLucian Wilma - Last Filed: 03/05/19 10:40> Discharge Diet: Low fat/ Low Cholesterol Discharge Activity: Return to Normal Activity May shower in (days): 1 - No tub baths for 5 days May resume sexual activity in: 1-2 weeks Lifting Restrictions: Do not lift anything greater than 10 pounds for 3 days Call your doctor if your incision/area has: Continuous Slow Oozing, Sudden Increased Bleeding, Increased Pain/ Swelling, Increased Redness, Foul Smelling Discharge, Swelling at the incision site Call your doctor if you observe: Fever of 101 or Higher, Shortness of breath, Chest pain Remove Dressing in (days):: 1 Cleanse incision/area with: Soap & Water Additional Instructions: You will continue with aspirin therapy. He will also continue with Plavix therapy for at least one year. If anyone asks you to stop your Plavix, please call the [facility] Office at [phone]. He will be contacted by a secretary of state from the [facility] Office to schedule an office appointment in approximately 2 weeks from discharge from hospital. At this time, he will keep your 08/27/2019 appointment with [facility] Physician Lieutenant Shift Supervisor. Test Results: Test results from this visit will be discussed in further detail at your follow-up appointment, if applicable. Please Follow Up With: Iwona Solorzano Lieutenant Shift Supervisor Cardiac Rehabilitation Info Cardiac Rehabilitation Program Information: Cardiac Rehabilitation is important for patients like you who are recovering from a heart problem. Cardiac rehabilitation programs are recognized as integral to the continued care of the patient with coronary heart disease. The cardiac rehabilitation program is designed to optimize a patient's physical, psychological, and social functioning. Health acute care nursing assistant work in cardiac rehabilitation programs and assist you with getting the treatments you need to get stronger and healthier - like exercise, healthy eating habits, and medications. Cardiac rehabilitation has been show to help people with heart problems live longer and have better life enjoyment than people who do not go to cardiac rehabilitation. Please contact the Cardiac Rehabilitation Program at [facility] at in two weeks if you have not heard from them.
--- NOTE | 2019-03-05 07:34 | DCINST_ITS ---
<Isac Davila - Last Filed: 03/05/19 09:49> Additional Instructions: Stop Isosorbide / Imdur Start Lisinopril 5 mg by mouth once daily (office to send prescription to local pharmacy) Allergies/Adverse Reactions: Allergies diltiazem Allergy (Verified 02/25/19 14:36) Unknown levofloxacin [From Levaquin] Adverse Reaction (Verified 02/25/19 14:36) Upset Stomach meperidine HCl [From Demerol] Adverse Reaction (Verified 02/25/19 14:36) Vomiting rosuvastatin calcium [From Crestor] Adverse Reaction (Verified 02/25/19 14:36) Pain in joints Tetracyclines Adverse Reaction (Verified 02/25/19 14:36) Upset Stomach tramadol Adverse Reaction (Verified 02/25/19 14:36) Diarrhea Medications to take at Discharge RX: Albuterol IH (ProAir) [Proair Hfa] 1 puff INHALATION Q6H PRN PRN 12/16/14 RX: Metformin HCl [Glucophage] 1,000 mg PO BID 12/16/14 RX: Nitroglycerin (INPATIENT USE) [Nitrostat] 0.4 mg SUBLINGUAL Q5M PRN #25 tab 10/20/16 RX: Aspirin E.C. [Ecotrin] 81 mg PO DAILY@0800 tab 10/11/18 RX: Clopidogrel Bisulfate [Plavix] 75 mg PO DAILY tab 10/11/18 RX: Pantoprazole Sodium [Protonix] 40 mg PO DAILY tab 10/11/18 RX: Pravastatin [Pravachol] 80 mg PO QHS tab 10/11/18 RX: traZODone [Desyrel] 150 mg PO QHS tab 10/11/18 metoprolol tartrate 50 mg tablet 50 mg PO BID #180 tab 02/16/19 lisinopril 5 mg tablet 5 mg PO QDAY #30 tab 03/05/19 Primary Care Physician: Angelique Tejada MD [Primary Care Provider] - Test Results: Test results from this visit will be discussed in further detail at your follow- up appointment, if applicable. Please Follow Up With: Lucian Bailey NP-C When: March 19, 2019: 08:30 AM Cardiac Rehabilitation Info Cardiac Rehabilitation Program Information: Cardiac Rehabilitation is important for patients like you who are recovering from a heart problem. Cardiac rehabilitation programs are recognized as integral to the continued care of the patient with coronary heart disease. The cardiac rehabilitation program is designed to optimize a patient's physical, psychological, and social functioning. Health nursing care attendant work in cardiac rehabilitation programs and assist you with getting the treatments you need to get stronger and healthier - like exercise, healthy eating habits, and medications. Cardiac rehabilitation has been show to help people with heart problems live longer and have better life enjoyment than people who do not go to cardiac rehabilitation. Please contact the Cardiac Rehabilitation Program at [facility] at in two weeks if you have not heard from them. <LynnLucian Wilma - Last Filed: 03/05/19 10:40> Discharge Diet: Low fat/ Low Cholesterol Discharge Activity: Return to Normal Activity May shower in (days): 1 - No tub baths for 5 days May resume sexual activity in: 1-2 weeks Lifting Restrictions: Do not lift anything greater than 10 pounds for 3 days Call your doctor if your incision/area has: Continuous Slow Oozing, Sudden Increased Bleeding, Increased Pain/ Swelling, Increased Redness, Foul Smelling Discharge, Swelling at the incision site Call your doctor if you observe: Fever of 101 or Higher, Shortness of breath, Chest pain Remove Dressing in (days):: 1 Cleanse incision/area with: Soap & Water Additional Instructions: You will continue with aspirin therapy. He will also continue with Plavix therapy for at least one year. If anyone asks you to stop your Plavix, please call the [facility] Office at [phone]. He will be contacted by a medical secretary from the [facility] Office to schedule an office appointment in approximately 2 weeks from discharge from hospital. At this time, he will keep your 08/27/2019 appointment with [facility] Physician [facility]ator. Test Results: Test results from this visit will be discussed in further detail at your follow- up appointment, if applicable. Please Follow Up With: Iwona Solorzano [facility] Cardiac Rehabilitation Info Cardiac Rehabilitation Program Information: Cardiac Rehabilitation is important for patients like you who are recovering from a heart problem. Cardiac rehabilitation programs are recognized as integral to the continued care of the patient with coronary heart disease. The cardiac rehabilitation program is designed to optimize a patient's physical, psychological, and social functioning. Health nursing care attendant work in cardiac rehabilitation programs and assist you with getting the treatments you need to get stronger and healthier - like exercise, healthy eating habits, and medications. Cardiac rehabilitation has been show to help people with heart problems live longer and have better life enjoyment than people who do not go to cardiac rehabilitation. Please contact the Cardiac Rehabilitation Program at [facility] at in two weeks if you have not heard from them.
[2019-03-05] MEDS: Aspirin E.C. 81 MG Tablet PO (08:48)
[2019-03-05] MEDS: Isosorbide Mononitrate 30 MG Tablet PO (08:49)
[2019-03-05] MEDS: Metoprolol Tartrate 50 MG Tablet PO (08:49)
[2019-03-05] MEDS: Clopidogrel Bisulfate 75 MG Tablet PO (08:49)
[2019-03-05] MEDS: Pantoprazole Sodium 40 MG Tablet PO (08:49)
--- NOTE | 2019-03-05 09:53 | PCM.DC.SUM ---
Discharge Date and Diagnosis Date of Admission: 03/04/19 Date of Discharge: 03/05/19 - Primary Discharge Diagnosis CAD s/p PCI - Secondary Discharge Diagnosis Chronic Problems (Last Updated 03/04/19 @ 10:18 by Iwona Valdez) Essential hypertension (Chronic) Fatigue (Chronic) Claudication (Chronic) Abnormal electrocardiogram (Chronic) Cardiac murmur (Chronic) Abnormal stress test (Chronic) Cigarette nicotine dependence (Chronic) Hyperlipemia, mixed (Chronic) Atherosclerosis of [place] coronary artery of [place] heart without angina pectoris (Chronic) PCI/BEAU of the prox OM3 and LAD 10/19/16; PCI/BEAU to prox LAD 09/10/17; PCI/BEAU to the mid LAD 10/10/18; Diabetes (Chronic) S/P angioplasty with stent (Chronic ~03/04/19) PCI/BEAU of the prox OM3 and LAD 10/19/16; PCI/BEAU to prox LAD 09/10/17; PCI/BEAU to the mid LAD 10/10/18; PTCA/BEAU of prox OM 2 and PTCA/BEAU of prox OM4 03/04/19 Hospital Course and Treatment Procedures: Cardiac catheterization, - - Cardiac intervention Summary of Care Provided: The patient is a 58 year old white female with a past medical history of CAD status post previous OM PTCA/stent and repeat LAD PTCA/stent Zen for further evaluation of symptoms concerning for angina pectoris with repeat diagnostic cardiac catheterization. Repeat diagnostic cardiac catheterization demonstrated progression of LCx/OM disease and patent previous LCx/OM PTCA/stent and patent previous LAD PTCA/stent. Status post review of her case it was elected to proceed with further catheter-based revascularization with additional PTCA/stent of her LCx/OM disease as it has progressed in areas outside of her previous stent. This was accomplished by Dr. Godoy. The patient was monitored in the ICU overnight. She appeared to be symptomatically hemodynamically stable. She is to be released home for continued outpatient cardiovascular follow-up and care. [] Subjective: This is a 58-year-old white female who appears to be resting comfortably at the moment in no acute distress. - Physical Exam General: Alert, Oriented x3, Cooperative, No apparent distress HEENT: Atraumatic, PERRLA, EOMI, Normocephalic Oral: Moist Mucosa Neck: Supple, No JVD Lungs: Clear to auscultation Cardiovascular: Regular rate, Regular Rhythm, Normal S1, Normal S2 Abdomen: Bowel Sounds Present, Soft, Non Tender Extremities: No clubbing, No cyanosis, No edema Skin: No rashes Neurological: Neuro grossly intact Psych/Mental Status: Normal Affect Comment: Right femoral artery: Pulses 2+/4+: No bruits: No obvious hematoma Vital Signs Temp Pulse Resp BP Pulse Ox 98.6 F 64 17 136/73 H 97 03/05/19 08:00 03/05/19 08:49 03/05/19 08:00 03/05/19 08:49 03/05/19 08:00 Oxygen Delivery Method Room Air Weight: 196 lb 10.437 oz Body Mass Index (BMI) 33.7 Finger Stick Blood Glucose 173 Intake and Output for Last 24 Hours 03/03/19 03/04/19 03/05/19 23:59 23:59 23:59 Intake Total 1010 / 1010 440 / 440 Balance 1010 / 1010 440 / 440 Laboratory Tests Past 24 Hrs 03/05/19 03/05/19 04:20 04:20 WBC 5.7 RBC 3.82 L Hgb 10.7 L Hct 32.8 L MCV 85.9 MCH 28.0 MCHC 32.6 RDW 14.0 RDW Differential 42.7 Plt Count 151 MPV 10.9 Sodium 144 Potassium 3.8 Chloride 111 H Carbon Dioxide 28.0 Anion Gap 5 BUN 9 Creatinine 0.71 Estim Creat Clear Calc 72.76 Est GFR (MDRD) Af Amer 107 Est GFR (MDRD) Non-Af 89 BUN/Creatinine Ratio 12.6 Glucose 138 H Calcium 8.1 L Triglycerides 322 H Cholesterol 164 LDL Cholesterol 65 VLDL Cholesterol 64 H HDL Cholesterol 35 L POC Glucose 03/05/19 03/04/19 03/04/19 01:47 22:37 17:27 POC Glucose 164 H 167 H 121 H 03/04/19 11:21 POC Glucose 150 H Discharge Diet: Low fat/ Low Cholesterol Discharge Activity: Return to Normal Activity May shower in (days): 1 - No tub baths for 5 days May resume sexual activity in: 1-2 weeks Call your doctor if your incision/area has: Continuous Slow Oozing, Sudden Increased Bleeding, Increased Pain/ Swelling, Increased Redness, Foul Smelling Discharge, Swelling at the incision site Call your doctor if you observe: Fever of 101 or Higher, Shortness of breath, Chest pain Remove Dressing in (days):: 1 Cleanse incision/area with: Soap & Water Home Medications: Medications to take at Discharge Albuterol IH (ProAir) [Proair Hfa] 1 puff INHALATION Q6H PRN PRN 12/16/14 Metformin HCl [Glucophage] 1,000 mg PO BID 12/16/14 Nitroglycerin (INPATIENT USE) [Nitrostat] 0.4 mg SUBLINGUAL Q5M PRN #25 tab 10/20/16 Aspirin E.C. [Ecotrin] 81 mg PO DAILY@0800 tab 10/11/18 Clopidogrel Bisulfate [Plavix] 75 mg PO DAILY tab 10/11/18 Pantoprazole Sodium [Protonix] 40 mg PO DAILY tab 10/11/18 Pravastatin [Pravachol] 80 mg PO QHS tab 10/11/18 traZODone [Desyrel] 150 mg PO QHS tab 10/11/18 metoprolol tartrate 50 mg tablet 50 mg PO BID #180 tab 02/16/19 Primary Care Physician: Angelique Tejada MD [Primary Care Provider] - Please Follow Up With: Lucian Bailey, GARAGE HELPER-C When: March 19, 2019: 08:30 AM Additional Instructions: Stop Isosorbide / Imdur Start Lisinopril 5 mg by mouth once daily (office to send prescription to local pharmacy) Disposition: Home Minutes spent on discharge:: 45 Patient Condition:: Stable Medical Necessity - Tobacco Use Smoking Status: Current every day smoker Meaningful Use Info Meaningful Use Diagnoses (Choose all that apply): None applicable
--- NOTE | 2019-03-05 10:00 | EKG12_ITS ---
Test Reason : AM Blood Pressure : / mmHG Vent. Rate : 047 BPM Atrial Rate : 047 BPM P-R Int : 194 ms QRS Dur : 088 ms QT Int : 448 ms P-R-T Axes : 060 004 032 degrees QTc Int : 396 ms Marked sinus bradycardia with sinus arrhythmia Low voltage QRS Abnormal ECG When compared with ECG of 04-MAR-2019 10:15, MANUAL COMPARISON REQUIRED, DATA IS UNCONFIRMED Confirmed by BRIGIDA SMITH ([id number]), acquisition editor MIGUEL GALDAMEZ ([id number]) on 03/11/2019 12:56:14 PM Referred By: Isac Davila Confirmed By:HUGO SMITH
--- NOTE | 2019-03-12 08:05 | CL.D_ITS ---
Patient Name: MICKI PACK Study Date: 03/04/2019 Performing: Isac Davila MD Ht: 64.57 inches 164 cm : 1960 Wt: 187.39 lbs 85 kg Age: 58 Gender: female BSA: 1.91 PROCEDURE(S) PERFORMED [id number]/LV [id number] W OR WO PTCA, SINGLE CORONARY ARTERY [id number] W OR WO PTCA, EACH ADD'L ARTERY, SAME MAJOR CLINICAL PROFILE AND INDICATIONS Indications: Worsening Angina, Suspected CAD, New Onset Angina <= 2 months, Stable Known CAD, LV Dysfunction Heart Failure: NYHA Class: 1, Newly Diagnosed: No, Heart Failure Type: Systolic Stress/Imaging Stress/Image Study Performed: No Stress/Image Study Performed: No Angina Classification Anginal Classification w/in 2 Weeks: CCS III CAD Presentations: Unstable angina. Unstable angina. Other: Dyspnea on exertion, dizziness. Comorbidities/Risk Factors: Hypertension Dyslipidemia Prior CHF Prior PCI CONCLUSIONS Elevated Left Ventricular End Diastolic Pressure Segmented LV systolic dysfunction- Mild LVEF: by LV gram 55 % Saxman Multivessel CAD RECOMMENDATIONS Risk factor modification Medical therapy Referred for immediate PCI DESCRIPTION OF PROCEDURE The patient arrived to the procedure lab. The risks and benefits of the procedure as well as a full d escription of our services here and current unavailability of surgical backup were fully explained to the patient and/or their significant other prior to the catheterization. The Timeout was completed, verifying the correct patient and procedure. The patient's procedural site was prepped and draped in the usual fashion. Local anesthetic was given subcutaneously to right groin region with Lidocaine 2%. Using a modified Seldinger technique, arterial access was obtained via the right femoral artery, a 4 Fr sheath was inserted Left Coronary Artery selective angiography was performed in multiple views us ing a 4 Fr. JL4 catheter. Right Coronary Artery selective angiography was then performed in multiple views using a 4 Fr. 3DRC catheter. Left Ventriculography was performed in HASKINS projection using a 4 Fr . Pigtail catheter. LV to AO pullback pressures were then recorded.Contrast was injected through the sheath and the Right Iliac and Femoral artery were assessed for possible closure device.T he arterial sheath was pulled and a Mynx closure device was deployed for hemostasis CORONARY ANGIOGRAPHY DOMINANCE: Left Dominant LEFT HEART ASSESSMENT Left Ventricular Ejection Fraction: by LV Gram 55 % Inferior Mid Hypokinesis Elevated Left Ventricular End Diastolic Pressure LVEDP: 16 mmHg LEFT MAIN: Angiographically normal LEFT ANTERIOR DESCENDING ARTERY: PROX LAD: Previously placed stent is patent MID LAD: Previously placed stent is patent DIAGONAL 1: Proximal - Mild luminal irregularities CIRCUMFLEX ARTERY: Mild luminal irregularities OM 1: Proximal - Mild luminal irregularities OM 2: Proximal - eccentric: 75 % Stenosis, Mid - diffuse: irregular: 50 % Stenosis OM 3: Proximal - pre stent: 75 % Stenosis, Proximal - Previously placed stent is patent RIGHT CORONARY ARTERY: small nondominant: diffuse severe stenosis VALVE FINDINGS: Normal Aortic Valve function Normal Mitral Valve function AORTIC ROOT: Angiographically normal COMPLICATIONS No Complications PROCEDURE MEDICATIONS Versed 1 mg IV Oxygen: 2 L/min via nasal cannula Nitro 200 mcg IC 03/04/2019 09:09:18 Nitro 200 mcg IC 03/04/2019 09:09:18 Nitro 200 mcg IC 03/04/2019 09:14:42 Nitro 200 mcg IC 03/04/2019 09:21:08 IV Bolus: .9 NaCl 500 ml total 03/04/2019 09:41:32 IV Fluids: .9 NaCl increased to WO ml/hr 03/04/2019 09:09:26 SUMMARY OF HEMODYNAMIC DATA Time AIR REST ECG 07:52:22 AO 127/59 (84) SA 08:45:44 LV 133/-8, 16 08:52:14 LV 129/-11, 11 08:52:21 LV 133/-10, 16 08:53:45 LV 136/-13, 9 08:53:52 LVp 136/-14, 6 08:54:03 AOp 138/53 (85) 08:54:08 AO 129/60 (88) 09:20:27 Signed By Isac Davila MD On 03/12/2019 08:04:54 Isac Davila MD
== END 2019-03-05 10:27 | disposition home or self-care (01) ==
LOC: CLSP 06:48 → ICU 13:08 → CLSP 13:08 → ICU 13:15
PROVIDERS: Internal Medicine Cardiovascular Disease; Family Provider Internal Medicine; PCP Internal Medicine; Referring Provider Internal Medicine Cardiovascular Disease; Visit Provider Internal Medicine Cardiovascular Disease
DX: I25.110 Atherosclerotic heart disease of native coronary artery with unstable angina pectoris (principal); E11.9 Type 2 diabetes mellitus without complications; I10 Essential (primary) hypertension; E78.2 Mixed hyperlipidemia; R94.39 Abnormal result of other cardiovascular function study; R94.31 Abnormal electrocardiogram [ECG] [EKG]; F17.210 Nicotine dependence, cigarettes, uncomplicated; Z79.84 Long term (current) use of oral hypoglycemic drugs; Z79.02 Long term (current) use of antithrombotics/antiplatelets; Z79.82 Long term (current) use of aspirin; Z79.899 Other long term (current) drug therapy; Z95.5 Presence of coronary angioplasty implant and graft; Z96.653 Presence of artificial knee joint, bilateral
CPT/HCPCS: 36415; 80048; 80061; 82962; 85025; 85027; 85347; 85610; 85730; 92928; 92929; 93005; 93458; 99152; C1760; J7030; J7040; C1725; C1769; C1874; C1887; C1894; C9600; C9601; Q9967

== ENCOUNTER → 2019-03-19 09:29 | Outpatient (CLI) | payer OTHER, SELFPAY ==
[2018-10-10 13:42] VITALS: BMI 32.9
[2019-03-19 08:36] VITALS: BMI 31.7
--- NOTE | 2019-03-19 09:31 | ADU_ITS ---
Reason For Study: injury to artery S/P heart cath Right Velocities Left Velocities Common Femoral Artery, mid = 103.4 cm./sec. Common Femoral Artery, mid = 118 cm./sec. PREMISES TECHNICIAN measures .73 x .72 cm. PREMISES TECHNICIAN measures .91 x .88 cm. CFV is compressible with normal venous flow CFV is compressible with normal venous flow patterns. patterns. P[facility]. Interpretation Summary Normal bilateral common femoral arteries and veins with no evidence for pseudoaneurysm or fistula Ordering Physician: Iwona Suresh Performed By: Que Dong RVT
== END ==
PROVIDERS: Family Provider Internal Medicine; PCP Internal Medicine; Referring Provider Physician Assistant Medical; Visit Provider Physician Assistant Medical
DX: S75.009A Unspecified injury of femoral artery, unspecified leg, initial encounter (principal); X58.XXXA Exposure to other specified factors, initial encounter; Y93.9 Activity, unspecified; Y92.9 Unspecified place or not applicable; Y99.9 Unspecified external cause status; Z98.890 Other specified postprocedural states
CPT/HCPCS: 93925

== ENCOUNTER → 2019-03-26 11:53 | Outpatient (CLI) | payer OTHER, SELFPAY ==
[2018-10-10 13:42] VITALS: BMI 32.9
[2019-03-19 08:36] VITALS: BMI 31.7
--- NOTE | 2019-03-26 12:05 | CR.HP_ITS ---
CR - History & Physical - General Arrival date:: 03/26/19 Arrival time:: 12:00 Date of Referral:: 03/13/19 Date of CR Evaluation:: 03/26/19 Referring Physician: SARAH Primary Diagnosis: PCI WITH STENT X2 - History of Present Cardiac Event Onset Date: Enter Onset Date of cardiac illnesses in Comment field below Current stable Angina Pectoris:: Yes - THEY THINKS IS MJUSCULOSCELATAL Acute Myocardial Infarction within 12 months:: No Coronary Artery Bypass Graft:: No Heart valve replacement or repair:: No PTCA or coronary stenting:: Yes - HAS TOTAL OF 6 STENTS Heart or Heart-Lung Transplant:: No Heart Failure EF <35%:: No - EF 55 % Type of Symptoms:: CHEST PAIN AND TIRED ALL THE TIME, DIZZY A LOT Interventions with present event:: STENT X2 - Medications Home Medications: Ambulatory Orders Medication Instructions Recorded Albuterol IH (ProAir) [Proair Hfa] 1 puff INHALATION Q6H PRN PRN 12/16/14 metFORMIN HCl [Glucophage] 1,000 mg PO BID 12/16/14 Nitroglycerin (INPATIENT USE) 0.4 mg SUBLINGUAL Q5M PRN #25 tab 10/20/16 [Nitrostat] Aspirin E.C. [Ecotrin] 81 mg PO DAILY@0800 tab 10/11/18 Clopidogrel Bisulfate [Plavix] 75 mg PO DAILY tab 10/11/18 Pantoprazole Sodium [Protonix] 40 mg PO DAILY tab 10/11/18 Pravastatin [Pravachol] 80 mg PO QHS tab 10/11/18 traZODone [Desyrel] 150 mg PO QHS tab 10/11/18 metoprolol tartrate 50 mg tablet 50 mg PO BID #180 tab 02/16/19 lisinopril 5 mg tablet 5 mg PO QDAY #30 tab 03/05/19 - Allergies Allergies/Adverse Reactions: Allergies diltiazem Allergy (Verified 03/19/19 09:01) Unknown levofloxacin [From Levaquin] Adverse Reaction (Verified 03/19/19 09:01) Upset Stomach meperidine HCl [From Demerol] Adverse Reaction (Verified 03/19/19 09:01) Vomiting rosuvastatin calcium [From Crestor] Adverse Reaction (Verified 03/19/19 09:01) Pain in joints Tetracyclines Adverse Reaction (Verified 03/19/19 09:01) Upset Stomach tramadol Adverse Reaction (Verified 03/19/19 09:01) Diarrhea - Sleep Disorder Evaluation Hx of Sleep Apnea: Yes Do you often feel tired/ fatigued/ sleepy during daytime?: Yes - PT STATES SHE ONCE HAD CPAP BUT RETURNED IT, DOES NOT WANT TOWEAR. Advanced Directives - Advanced Directives Power of Manager Scheduling: No Living Will: No Advance Directives Information Provided: No Advance Directives on File: No DNR Order?:: No Past Medical History - Past Medical Illness Medical History: Past Medical History (Last Updated 03/19/19 @ 09:01 by MELODY Vera) Essential hypertension (Chronic) I10 Dyspnea on exertion (Acute) R06.09 Claudication (Chronic) I73.9 Abnormal electrocardiogram (Chronic) R94.31 Cardiac murmur (Chronic) R01.1 Abnormal stress test (Chronic) R94.39 Atypical chest pain (Resolved) R07.89 Cigarette nicotine dependence (Chronic) F17.210 Hyperlipemia, mixed (Chronic) E78.2 Atherosclerosis of [place] coronary artery of [place] heart without angina pectoris (Chronic) I25.10 PCI/BEAU of the prox OM3 and LAD 10/19/16; PCI/BEAU to prox LAD 09/10/17; PCI/BEAU to the mid LAD 10/10/18; Successful PTCA/BEAU to proximal OM#2,Successful PTCA/BEAU proximal OM#4 03/04/2019 Diabetes (Chronic) E11.9 Chest pain R07.9 Fatigue R53.83 Syncope and collapse R55 History of hysterectomy Z90.710 CAD (coronary artery disease), [place] coronary artery (Inactive) I25.10 Hypertension (Inactive) I10 - Past Surgical History Surgical History: Past Surgical History (Last Updated 03/04/19 @ 10:18 by Iwona Valdez) S/P angioplasty with stent (Chronic) Onset Date: ~03/04/19 Z95.9 PCI/BEAU of the prox OM3 and LAD 10/19/16; PCI/BEAU to prox LAD 09/10/17; PCI/BEAU to the mid LAD 10/10/18; PTCA/BEAU of prox OM 2 and PTCA/BEAU of prox OM4 03/04/19 History of cholecystectomy Z90.49 History of ear surgery Z98.890 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 History of thyroid nodule Z86.39 removed History of tonsillectomy Z90.89 History of total bilateral knee replacement Z96.653 Hx of sinus surgery Z98.890 Surgical History: noncontributory, hysterectomy, total knee arthroplasty, tonsillectomy, - - thyroidectomy, 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, knee replacements bilateral, - Family History Summary Family History: Family History (Last Reviewed 02/25/19 @ 14:38 by Iwona Valdez) Mother CVA (cerebral vascular accident) Diabetes CAD (coronary artery disease) Brother Myocardial infarction Cancer History of PTCA Diabetes Social History - Smoking History Smoking Status: Current every day smoker Years Smokin Packs Smoked per Day: 1 Hx Tobacco Use: Yes - Alcohol Use Alcohol Usage: No - Substance Abuse Hx Substance Use: No - Occupation Occupation (List type of work in comments):: Retired - Hobbies, Recreation, Social Activities Hobbies: Reading, Other - [employer] Recreational Activities: I can hardly do any recreational activities Social Environment - Status Marital Status: - Current Living Arrangements Living Environment:: Spouse - Children How many children do you have?: 2 Do any of your children live nearby?: Yes - Safety Do you feel safe in your surroundings?: Yes - Assistance Do you need any assistance at home?: HAS CANE AND WALKER BUT STATES I DON'T USE THEM USED WHEN HAD KNEES REPLAC Review of Systems - Review of Systems Hints: Right click = Denies (Slash). Left click = Reports ([place]) Review of Present Symptoms: Reports: Angina - STATES CAN HAVE ANGINE AT ANY TIME. STATES THE CRDIOLOGIST OFFICE IS AWARE OF THIS AND WANTS TO SEE HOW DOES IN CR. THINKS MAY BE MUSCULOSCELATAL, Fatigue, Appetite - Normal. Denies: Shortness of Breath at Rest, Shortness of Breath with Exertion, PVD, Operative Discomfort, Wound Healing, Dizziness/Lightheadedness, Heart Arrhythmia/Irregularities, Sleep - Normal - TAKES AMBIEN - Pain Is Patient Pain Free?: No Pain Location: chest Pain Level: 4/10 Risk Factor Assessment - Chief Complaint Chief Complaint: CURRENT PCI PT WHO PRESENTS TODAY TO CR FOR INITIAL EVAL. - Vital Signs Temperature: 96.6 F Respiratory Rate: 16 Pulse Ox: 97 Blood Pressure: 102/62 Nailbeds:: PINK - Pulse Pulse Rate: 65 Pulse Rhythm: Regular - Hypertension How long have you been treated?: APPROX 15 YRS On medication(s)?: METOPROLOL, LISINOPRIL Blood Pressure Sitting - Left Arm: 102/62 - Stress Stress: Home/Family - IS GOING THROUGH SOME TOUGH VISION PROBLEMS AT THE PRESENT TIME. - Blood Cholesterol/Lipids Total Cholesterol (mg/dL) Goal = less than 200 mg/dL: 164 HDL Cholesterol (mg/dL) Goal = less than 40 mg/dL: 35 LDL Cholesterol (mg/dL) Goal = less than 70 mg/dL: 65 Triglycerides (mg/dL) Goal = less than 150 mg/dL: 322 - For Smoking Smoking Risk Guidelines: Smoking Low Risk: None or quit greater than 6 months ago. Smoking Moderate Risk: Smoker or quit 6 months or less ago. Smoking High Risk: Smoker - For Dyslipidemia Dyslipidemia Risk Guidelines: Low Risk: Moderate Risk: High Risk: 15-25% fat 25.1-29% fat >/= 30% fat. <7% sat fat 7-9% sat fat >9% sat fat. <150 mg chol 150-299 mg chol >/= 300 mg chol. LDL <100 LDL 100-129 LDL >/= 130. Chol/HDL ratio <5.0 Chol/HDL ratio 5.0-6.0 Chol/HDL ratio >6.0. Triglycerides <100 Triglycerides 100-149 Triglycerides >/= 150 - For Diabetes Mellitus Diabetes Risk Guidelines: Diabetes Low Risk: HgA1c <6.5% and/or FBG <120. Diabetes Moderate Risk: HgA1c 6.6-7.9% and/or FBG 120-180. Diabetes High Risk: HgA1c >/= 8% and/or FBG >180 - For Obesity/Overweight Obesity/Overweight Risk Guidelines: Obesity Low Risk: BMI <25.0. Obesity Moderate Risk: BMI 25-29.9. Obesity High Risk: BMI >/= 30.0 - For Hypertension Hypertension Risk Guidelines: Hypertension Low Risk: Systolic <120 and Diastolic <80. Hypertension Moderate Risk: Systolic 120-139 and Diastolic 80-89. Hypertension High Risk: Systolic >/= 140 and Diastolic >/= 90 - For Sedentary Lifestyle Sedentary Lifestyle Risk Guidelines: Sedentary Lifestyle Low Risk: >/= 1,500 kcal/week. Sedentary Lifestyle Moderate Risk: 700-1,499 kcal/week. Sedentary Lifestyle High Risk: < 700 kcal/week - For Depression Depression Risk Guidelines: Depression Low Risk: Not clinically depressed. Depression Moderate Risk: Mildly depressed. Depression High Risk: Clinically depressed - Family History Family History: Family History (Last Reviewed 02/25/19 @ 14:38 by Iwona Valdez) Mother CVA (cerebral vascular accident) Diabetes CAD (coronary artery disease) Brother Myocardial infarction Cancer History of PTCA Diabetes Motivation - Motivation to Participate On a scale of 1 to 10, how prepared are you to commit to attending program?: 10 What do you see as barriers to successfully being able to complete the program?: HUSBANDS HEALTH ISSUE What do you see as the benefits of succesfully completing the program? In other words, what do you hope to get out of participating in the program?: DECREASED ANGINA Are there issues you are dealing with that will interfere with completing the program?: HUSBANDS HEALTH AT PRESENT Do you have a spouse or signficant other, family or friends who will help support you to complete the program?: SPOUSE
[2019-03-26 12:24] VITALS: BP 102/62; PULSE 65; RESP 16; TEMP 35.9; O2SAT 97
--- NOTE | 2019-03-26 12:24 | CR.ITP_ITS ---
General Information - Education/Goals Barriers to Learning: None Individual Counseling: Initial Assessment: Nicotine/Smoking, High Blood Pressure, Overweight/Obesity, Diabetes, Metabolic Syndrome (as evidenced by 3 of 5 A-E below), B. Waist Circumference >35/Females >40/Males, C. High Triglyceri yin >150, Hypertension, Low HDL <40/Males or <50/Females, Stress, Family History of Heart Disease (under 65 years) Cardiac Rehabilitation Goals: 1. Maintain the individual as the primary focus of care. 2. To improve the patient's quality of life. 3. Identification of cardiac risk factors and provide cardiac risk factor management. 4. Enhance the psychosocial status of the patient. 5. Reconditioning enough to allow the patient to resume customary activities. 6. Control symptoms of cardiac disease Scale for measuring improvement of personal goals: Enter appropriate number in Comments. 2 = Unchanged. 3 = Slightly Better. 4 = Moderate Improvement. 5 = Met my Goal Personal Goals: Initial Assessment: Improve energy level, Get back to work, or to resume activities faster Exercise - Initial Assessment - Visit Date of Eval: 03/26/19 - Stages of Change Stages of Change:: Action - Physician Prescribed Exercise Modalities: Treadmill, Rower, Airdyne, NuStep, SciFit Frequency (days/week): 2x/week for 12 weeks [36 sessions], 3x/week for 12 weeks [36 sessions] Intensity: 60-80% age predicted maximum heart rate reserve METs - Progression: 0.5-1.0 MET, RPE 11-14 WEEK: 3.0 Target Heart Rate:: 104-136 - Hypertension Do any of the following apply?: Yes, Medication - METOPROLOL, LISINOPRIL Resting Blood Pressure:: 102/62 - Intervention Home Exercise/Activity Goal:: Moderate Exercise 30 min/day x 5 days/wk - Education Goals:: Warm-up, RPE AMANDA Scale, S/S, Safe Exercise, Self-Monitoring - Exercise Program Goals Exercise Program Goals: Aerobic Activity >30 min, B/P <130/80 Nutrition - Initial Assessment - Program Goals Nutrition Program Goals: LDL <70. Total Cholesterol <200. HDL >45. Triglycerides <150. HgbA1C <7%. BMI <25 - Stages of Change Stages of Change:: Action - Lipids Total Cholesterol (mg/dL) Goal = less than 200 mg/dL: 164 HDL Cholesterol (mg/dL) Goal = less than 45 mg/dL: 35 LDL Cholesterol (mg/dL) Goal = less than 70 mg/dL: 65 Triglycerides (mg/dL) Goal = less than 150 mg/dL: 322 - Diabetes Diabetes:: Yes Do you monitor your blood sugar at home?: Yes - Weight Management Height: 5 ft 4 in Weight:: 185 lb - Intervention Referral to dietitian:: No Referral to Diabetic Clinic:: Yes Will attend diet classes:: Yes - CR CLASSES Tobacco - Initial Assessment - Program Goals Tobacco Program Goals: Complete smoking cessation. Attend education classes. Improve Knowledge Test score - Stage of Change Stages of Change:: Action - Learning Barriers Learning Barriers: Vision, Ready to Learn - Family Support Do you have family support?: Yes - Tobacco Use Tobacco Use: Cigarettes How many cigarettes do you smoke per day?: 8 Years Smokin - Intervention Smoking Cessation Referral:: Yes - Education Gave educational material for:: Tobacco triggers, Coronary artery disease, Risk factors, Medical compliance, Cardiac A&P, Angina signs & symptoms Psychosocial - Initial Assess - Target Goals Target Goals: Assess presence or absence of depression. Using a valid screening tool, maximizes coping skills. Positive support system - Stages of Change Stages of Change:: Action - Psychosocial Test Tool Used:: HANDS Depression Questionnaire Self-reported stress:: HAS HAD STRESS OF HUSBANDS LOSS OF VISION ISSUES AND LOSS OF 2 GRAND BABIES Total Mood Screening Score:: 14 Self-Efficacy Score:: 27 - Intervention PS - Interventions: Yes Attend Stress Management Classes - CR CLASSES - Education Gave educational materials for:: Coping techniques, Signs & symptoms of depression, Stress management, Relaxation techniques - EDUCATION MATERIAL AVAIL ON HOSPITAL ON-LINE SITE. PT ATTENDED CR CLASSES LAST YEAR WELL - Patient/Program Goal Preventative Medication(s):: STEVE inhibitor, Clopidogrel, Beta rayna, Statin/lipid - Assistive Devices Assistive Devices:: None Fall Risk Assessed:: No Patient Health Questionnaire Initial Assessment 1. Little interest or pleasure in doing things: More than half the days 2. Feeling down, depressed, or hopeless: More than half the days 3. Trouble falling or staying asleep, or sleeping too much: Nearly every day 4. Feeling tired or having little energy: Nearly every day 5. Poor appetite or overeating: Several days 6. Feeling bad about yourself -- or that you are a failure or have let yourself or your family down: More than half the days 7. Trouble concentrating on things, such as reading the newspaper or watching television: Several days 8. Moving or speaking so slowly that other people could have noticed. Or the opp osite - being so fidgety or restless that you have been moving around a lot more than usual: Not at all 9. Thoughts that you would be better off , or of hurting yourself in some way: Not at all How difficult have these problems made it for you to do your work, take care of things at home, or get along with other people?: Somewhat difficult Total Score: 14 TREVON-Q SV Test - Statements CAD is a disease of the arteries in the heart: False Examples of risk factors for heart disease: True Angina is chest pain or discomfort: True The benefits of resistance training include: True Eating more meat and dairy products: False Anti-platelet medications such as aspirin are important: True The only effective way to manage stress: False An exercise warm-up slowly increases heart rate: True Prepared, processed foods usually have high sodium: True Depression is common after a heart attack: True The statin medications lower cholesterol: True To control blood pressure, lower the amount of sodium: True If someone gets chest discomfort during walking: False Transfats are partially hydrogenated vegetable oils: True Sleep apnea that is not treated increases the risk: False To control cholesterol, one should become a vegetarian: False Someone knows if he/she is exercising at the right level: True Diabetes cannot be prevented with exercise & health eating: False Stress is a large risk for heart attack: True A diet that can help lower blood pressure is rich in: True - Total Score Total Correct Responses: 20 Self-Efficacy Initial Assessment We would like to know how confident you are in doing certain activities. Please select your confidence level for:: Select your confidence level for the following using the scale 1-10 where 1 is not at all confident and 10 is totally confident. Your score is the average of all 6 responses. Fatigue: How confident are you that you can keep the fatigue caused by your disease from interfering with the things you want to do? Select Number: 4 Physical Discomfort or Pain: How confident are you that you can keep the physical discomfort or pain of your disease from interfering with the things you want to do? Select Number: 4 Emotional Distress: How confident are you that you can keep the emotional distress caused by your disease from interfering with the things you want to do? Select Number: 5 Other Symptoms or Health Problems: How confident are you that you can keep other symptoms or health problems from interfering with the things you want to do? Select Number: 5 Different Tasks and Activities: How confident are you that you can do the different tasks and activities needed to manage your health condition so as to reduce your need to see a doctor? Select Number: 5 Medication: How confident are you that you can do things other than just taking medication to reduce how much your illness affects your everyday life? Select Number: 4 Total Score:: 4 Nutrition Survey - Nutrition Survey Instructions Scoring Instructions: Scoring is as follows: Yes = 1 points. No = 0 point. Patient score that is >/=12 is considered to be at potential nutritional risk and could benefit from a referral to a registered dietitian. - Nutrition Survey Initial Have you lost >10 lbs over the past 2 months without trying?: No Are you following a special diet at home for diabetes, low fat, or low salt?: No Are you interested in meeting with a dietitian for help understanding your diet?: No Do you eat less than 3 meals a day?: Yes Do you eat fatty meats (metz, sausage, ribs, etc), fried foods, desserts, large amounts of salad dressings, margarine, butter, or cheese most days?: No Do you have food allergies? [Enter types in comment field]: No Do you eat in restaurants more than 3 times a week?: No Do you season food with salt, seasoning salt, or garlic salt?: No Do you used canned, boxed, frozen meals, or soups, seasoning packets?: No Total Score:: 1
[2019-03-26 12:59] VITALS: BP 102/62
== END ==
PROVIDERS: Family Provider Internal Medicine; PCP Internal Medicine; Referring Provider Internal Medicine Cardiovascular Disease; Visit Provider Internal Medicine Cardiovascular Disease
DX: R07.9 Chest pain, unspecified (principal); Z95.5 Presence of coronary angioplasty implant and graft

== ENCOUNTER 2019-04-10 13:00 | Outpatient (RCR) | payer OTHER, SELFPAY ==
[2018-10-10 13:42] VITALS: BMI 32.9
[2019-03-19 08:36] VITALS: BMI 31.7
== END 2019-04-12 23:59 ==
LOC: CR 13:00
PROVIDERS: Family Provider Internal Medicine; PCP Internal Medicine; Referring Provider Internal Medicine Cardiovascular Disease; Visit Provider Internal Medicine Cardiovascular Disease
DX: I25.10 Atherosclerotic heart disease of native coronary artery without angina pectoris (principal); Z95.9 Presence of cardiac and vascular implant and graft, unspecified
CPT/HCPCS: 93798

== ENCOUNTER 2019-05-13 13:00 | Outpatient (RCR) | payer OTHER, SELFPAY ==
[2018-10-10 13:42] VITALS: BMI 32.9
[2019-03-19 08:36] VITALS: BMI 31.7
--- NOTE | 2019-04-24 11:47 | PCM.CR.ITP ---
Exercise - 30-day Assessment - Visit Date of Eval: 04/24/19 Session #:: 10 - STARTED CR 03/30/2019 - Stages of Change Stages of Change:: Action - Physician Prescribed Exercise Modalities: Treadmill, Biodyne, Airdyne, NuStep, SciFit Frequency (days/week): 3 Duration (Minutes):: 30-45 Intensity: 60-80% age predicted maximum heart rate reserve METs - Progression: 0.5-1.0 MET, RPE 11-14 WEEK: 4.0 Target Heart Rate:: 104-136 W/MAX HR 90 - Hypertension Resting Blood Pressure:: 116/60 Peak Exercise Blood Pressure:: 138/76 Medication Changes:: No - Intervention Home Exercise/Activity Goal:: Moderate Exercise 30 min/day x 5 days/wk - Education Goals:: Warm-up, RPE AMANDA Scale, S/S, Safe Exercise, Self-Monitoring - Exercise Program Goals Exercise Program Goals: Aerobic Activity >30 min Nutrition - Initial Assessment - Program Goals Nutrition Program Goals: LDL <70. Total Cholesterol <200. HDL >45. Triglycerides <150. HgbA1C <7%. BMI <25 - Diabetes Do you monitor your blood sugar at home?: Yes Nutrition - 30-Day Assessment - Program Goals Nutrition Program Goals: LDL <70. Total Cholesterol <200. HDL >45. Triglycerides <150. HgbA1C <7%. BMI <25 - Visit Date of Eval: 04/24/19 - Stages of Change Stages of Change:: Action - Diabetes Diabetes:: Yes Non-Insulin Dependent?: Yes - METFORMIN Random Blood Glucose:: 161 - 101-161 RANGE - Weight Management Weight:: 180 lb - Intervention Referral to Diabetic Clinic:: Yes Will attend diet classes:: Yes - Education Attended class for:: Signs & symptoms of hypoglycemia, Signs & symptoms of hyperglycemia, Relate diabetes to coronary artery disease, Healthy eating Tobacco - Initial Assessment - Program Goals Tobacco Program Goals: Complete smoking cessation. Attend education classes. Improve Knowledge Test score - Learning Barriers Learning Barriers: Vision, Ready to Learn Tobacco - 30-Day Assessment - Program Goals Tobacco Program Goals: Complete smoking cessation. Attend education classes. Improve Knowledge Test score - Stage of Change Stages of Change:: Action - Learning Barriers Learning Barriers: Participates in education, Change in behavior - Family Support Do you have family support?: Yes - Tobacco Use Tobacco Use: Cigarettes Do you use smokeless tobacco?: No - Intervention Smoking Cessation Referral:: Yes Individual Education/Counseling:: Yes Education Schedule Given:: Yes - Education Attended class for:: Tobacco triggers, Coronary artery disease, Risk factors, Sexuality, Medical compliance, Cardiac A&P, Angina signs & symptoms Psychosocial - Initial Assess - Target Goals Target Goals: Assess presence or absence of depression. Using a valid screening tool, maximizes coping skills. Positive support system - Psychosocial Test Tool Used:: HANDS Depression Questionnaire - Assistive Devices Fall Risk Assessed:: No Psychosocial - 30-Day Assess - Target Goals Target Goals: Assess presence or absence of depression. Using a valid screening tool, maximizes coping skills. Positive support system - Stages of Change Stages of Change:: Action - Psychosocial Test Tool Used:: HANDS Depression Questionnaire - Intervention PS - Interventions: Yes Attend Stress Management Classes, Yes Uses Stress Management Skills, No Referral to Mental Health, No Referral to [facility] Case Management, No Referral to Physician - Education Attended classes for:: Coping techniques, Signs & symptoms of depression, Stress management, Relaxation techniques - Patient/Program Goal Preventative Medication(s):: Aspirin, STEVE inhibitor, Clopidogrel, Beta rayna, Statin/lipid - Assistive Devices Assistive Devices:: None Fall Risk Assessed:: Yes Patient Health Questionnaire 30-Day Re-eval Assessment 1. Little interest or pleasure in doing things: More than half the days 2. Feeling down, depressed, or hopeless: More than half the days 3. Trouble falling or staying asleep, or sleeping too much: Nearly every day 4. Feeling tired or having little energy: Nearly every day 5. Poor appetite or overeating: Several days 6. Feeling bad about yourself -- or that you are a failure or have let yourself or your family down: More than half the days 7. Trouble concentrating on things, such as reading the newspaper or watching television: Several days 8. Moving or speaking so slowly that other people could have noticed. Or the opposite - being so fidgety or restless that you have been moving around a lot more than usual: Not at all 9. Thoughts that you would be better off , or of hurting yourself in some way: Not at all How difficult have these problems made it for you to do your work, take care of things at home, or get along with other people?: Somewhat difficult - Patient could benefit from professional counseling behavioral health phone numbers given to patient. Total Score: 14 Self-Efficacy 30-Day Re-eval Assessment We would like to know how confident you are in doing certain activities. Please select your confidence level for:: Select your confidence level for the following using the scale 1-10 where 1 is not at all confident and 10 is totally confident. Your score is the average of all 6 responses. Fatigue: How confident are you that you can keep the fatigue caused by your disease from interfering with the things you want to do? Select Number: 5 Physical Discomfort or Pain: How confident are you that you can keep the physical discomfort or pain of your disease from interfering with the things you want to do? Select Number: 5 Emotional Distress: How confident are you that you can keep the emotional distress caused by your disease from interfering with the things you want to do? Select Number: 6 Other Symptoms or Health Problems: How confident are you that you can keep other symptoms or health problems from interfering with the things you want to do? Select Number: 6 Different Tasks and Activities: How confident are you that you can do the different tasks and activities needed to manage your health condition so as to reduce your need to see a doctor? Select Number: 6 Medication: How confident are you that you can do things other than just taking medication to reduce how much your illness affects your everyday life? Select Number: 5 Total Score:: 5
[2019-04-24 11:53] VITALS: BP 116/60; BP 138/76
== END 2019-05-13 23:59 ==
LOC: CR 13:00
PROVIDERS: Family Provider Internal Medicine; PCP Internal Medicine; Referring Provider Internal Medicine Cardiovascular Disease; Visit Provider Internal Medicine Cardiovascular Disease
DX: I25.10 Atherosclerotic heart disease of native coronary artery without angina pectoris (principal); Z95.9 Presence of cardiac and vascular implant and graft, unspecified
CPT/HCPCS: 93798

== ENCOUNTER 2019-06-12 13:00 | Outpatient (RCR) | payer OTHER, SELFPAY ==
[2018-10-10 13:42] VITALS: BMI 32.9
[2019-03-19 08:36] VITALS: BMI 31.7
[2019-05-14 01:01] VITALS: BP 116/60; BP 138/76
--- NOTE | 2019-05-25 08:12 | CR.ITP_ITS ---
General Information - General Information Admitting Diagnosis: PCI with stent - Education/Goals Barriers to Learning: None Cardiac Rehabilitation Goals: 1. Maintain the individual as the primary focus of care. 2. To improve the patient's quality of life. 3. Identification of cardiac risk factors and provide cardiac risk factor management. 4. Enhance the psychosocial status of the patient. 5. Reconditioning enough to allow the patient to resume customary activities. 6. Control symptoms of cardiac disease Scale for measuring improvement of personal goals: Enter appropriate number in Comments. 2 = Unchanged. 3 = Slightly Better. 4 = Moderate Improvement. 5 = Met my Goal Exercise - 60-Day Assessment - Visit Date of Eval: 05/25/19 Session #:: 24 - Stages of Change Stages of Change:: Action - Physician Prescribed Exercise Modalities: Biodyne, NuStep, SciFit Frequency (days/week): 3 Duration (Minutes):: 30-45 Intensity: 60-80% age predicted maximum heart rate reserve METs - Progression: 0.5-1.0 MET, RPE 11-14 WEEK: 4 Target Heart Rate:: 104-136 Max HR 100 - Hypertension Resting Blood Pressure:: 138/78 Peak Exercise Blood Pressure:: 170/80 - Intervention Home Exercise/Activity Goal:: Sitting Time <3 hrs/day - Education Goals:: Warm-up, RPE AMANDA Scale, S/S, Safe Exercise, Self-Monitoring - Exercise Program Goals Exercise Program Goals: Aerobic Activity >30 min, B/P <130/80 Nutrition - Initial Assessment - Program Goals Nutrition Program Goals: LDL <70. Total Cholesterol <200. HDL >45. Triglycerides <150. HgbA1C <7%. BMI <25 - Diabetes Do you monitor your blood sugar at home?: Yes Nutrition - 60-Day Assessment - Program Goals Nutrition Program Goals: LDL <70. Total Cholesterol <200. HDL >45. Triglycerides <150. HgbA1C <7%. BMI <25 - Visit Date of Eval: 05/25/19 - Stages of Change Stages of Change:: Action - Lipids Has the patient seen the dietitian?: No - Diabetes Diabetes:: Yes Insulin: No Non-Insulin Dependent?: Yes - Metformin Random Blood Glucose:: 179 - Weight Management Weight:: 81.193 kg - Intervention Referral to Diabetic Clinic:: Yes Will attend diet classes:: Yes - Education Attended class for:: Signs & symptoms of hypoglycemia, Signs & symptoms of hyperglycemia, Relate diabetes to coronary artery disease, Healthy eating Tobacco - Initial Assessment - Program Goals Tobacco Program Goals: Complete smoking cessation. Attend education classes. Improve Knowledge Test score - Learning Barriers Learning Barriers: Vision, Ready to Learn Tobacco - 60-Day Assessment - Program Goals Tobacco Program Goals: Complete smoking cessation. Attend education classes. Improve Knowledge Test score - Stage of Change Stages of Change:: Action - Family Support Do you have family support?: Yes - Tobacco Use Tobacco Use: Cigarettes Do you use smokeless tobacco?: No - Intervention Smoking Cessation Referral:: Yes Individual Education/Counseling:: Yes Education Schedule Given:: Yes - Education Attended class for:: Treating Heart Disease, How The Heart Works, What it means to have Heart Disease, How Coronary Artery Disease is Diagnosed, Heart Procedures, What Heart Medications Do, Risk Factors & Modifications, Living an Active Life, Nutrition, Emotions & Heart Disease, Stress Management & Relaxation, Sleep Disorders & Heart Disease Psychosocial - Initial Assess - Target Goals Target Goals: Assess presence or absence of depression. Using a valid screening tool, maximizes coping skills. Positive support system - Psychosocial Test Tool Used:: HANDS Depression Questionnaire - Assistive Devices Fall Risk Assessed:: Yes Psychosocial - 60-Day Assess - Target Goals Target Goals: Assess presence or absence of depression. Using a valid screening tool, maximizes coping skills. Positive support system - Stages of Change Stages of Change:: Action - Psychosocial Test Tool Used:: HANDS Depression Questionnaire - Intervention PS - Interventions: Yes Attend Stress Management Classes, Yes Uses Stress Management Skills, No Referral to Mental Health, No Referral to [facility] Case Management, No Referral to Physician - Education Attended classes for:: Coping techniques, Signs & symptoms of depression, Stress management, Relaxation techniques - Assistive Devices Assistive Devices:: None Fall Risk Assessed:: Yes Patient Health Questionnaire 60-Day Re-eval Assessment 1. Little interest or pleasure in doing things: More than half the days 2. Feeling down, depressed, or hopeless: More than half the days 3. Trouble falling or staying asleep, or sleeping too much: Nearly every day 4. Feeling tired or having little energy: Nearly every day 5. Poor appetite or overeating: Several days 6. Feeling bad about yourself -- or that you are a failure or have let yourself or your family down: More than half the days 7. Trouble concentrating on things, such as reading the newspaper or watching television: Several days 8. Moving or speaking so slowly that other people could have noticed. Or the opposite - being so fidgety or restless that you have been moving around a lot more than usual: Not at all 9. Thoughts that you would be better off , or of hurting yourself in some way: Not at all How difficult have these problems made it for you to do your work, take care of things at home, or get along with other people?: Somewhat difficult - pt could benefit from counseling. Behavioral health phone numbers given Total Score: 14 Self-Efficacy 60-Day Re-eval Assessment We would like to know how confident you are in doing certain activities. Please select your confidence level for:: Select your confidence level for the followi ng using the scale 1-10 where 1 is not at all confident and 10 is totally confident. Your score is the average of all 6 responses. Fatigue: How confident are you that you can keep the fatigue caused by your disease from interfering with the things you want to do? Select Number: 5 Physical Discomfort or Pain: How confident are you that you can keep the physical discomfort or pain of your disease from interfering with the things you want to do? Select Number: 5 Emotional Distress: How confident are you that you can keep the emotional distress caused by your disease from interfering with the things you want to do? Select Number: 6 Other Symptoms or Health Problems: How confident are you that you can keep other symptoms or health problems from interfering with the things you want to do? Select Number: 6 Different Tasks and Activities: How confident are you that you can do the different tasks and activities needed to manage your health condition so as to reduce your need to see a doctor? Select Number: 6 Medication: How confident are you that you can do things other than just taking medication to reduce how much your illness affects your everyday life? Select Number: 5 Total Score:: 5
[2019-05-25 08:20] VITALS: BP 138/78; BP 170/80
== END 2019-06-13 23:59 ==
LOC: CR 13:00
PROVIDERS: Family Provider Internal Medicine; PCP Internal Medicine; Referring Provider Internal Medicine Cardiovascular Disease; Visit Provider Internal Medicine Cardiovascular Disease
DX: I25.10 Atherosclerotic heart disease of native coronary artery without angina pectoris (principal); Z95.9 Presence of cardiac and vascular implant and graft, unspecified
CPT/HCPCS: 93798

== ENCOUNTER 2019-06-24 13:00 | Outpatient (RCR) | payer OTHER, SELFPAY ==
[2018-10-10 13:42] VITALS: BMI 32.9
[2019-03-19 08:36] VITALS: BMI 31.7
[2019-06-14 00:50] VITALS: BP 138/78; BP 170/80
== END 2019-07-13 23:59 ==
LOC: CR 13:00
PROVIDERS: Family Provider Internal Medicine; PCP Internal Medicine; Referring Provider Internal Medicine Cardiovascular Disease; Visit Provider Internal Medicine Cardiovascular Disease
DX: I25.10 Atherosclerotic heart disease of native coronary artery without angina pectoris (principal); Z95.9 Presence of cardiac and vascular implant and graft, unspecified
CPT/HCPCS: 93798

== ENCOUNTER → 2019-09-30 13:43 | Outpatient (CLI) | payer OTHER, SELFPAY ==
[2018-10-10 13:42] VITALS: BMI 32.9
[2019-03-19 08:36] VITALS: BMI 31.7
[2019-08-27 14:03] VITALS: BMI 28.6
--- NOTE | 2019-09-30 13:46 | RAD_ITS ---
STUDY: SWALLOWING STUDY REASON FOR EXAM: Female, 59 years old. Dysphagia. TECHNIQUE: The examination was performed with Speech Pathology in attendance. Under fluoroscopic observation, the patient ingested thin barium, thick barium, barium pudding, and barium coated cracker. FLUOROSCOPY TIME: 1:31 minutes/seconds. 1403 fluoroscopic images were obtained. RADIOLOGIST INVOLVEMENT: Radiologist was present and providing direct supervision. COMPARISON: None. FINDINGS: The following was observed during swallowing of the various mixtures of barium: Thin Barium: There was no evidence of aspiration or laryngeal penetration. Thick Barium: There was no evidence of aspiration or laryngeal penetration. Barium Pudding: There was no evidence of aspiration or laryngeal penetration. Barium Coated Cracker: There was no evidence of aspiration or laryngeal penetration. RAD/Swallowing Function w/Video IMPRESSION: Normal tailored barium swallow study. No evidence of increased risk for aspiration. The swallow study findings were discussed with the patient by the speech pathologist at the conclusion of the examination. Please see speech pathology report for more information and recommendations. Electronically Signed: Carlos Hernandez, at 14:50 EST , Service support ,
--- NOTE | 2019-09-30 15:44 | SP.MBSS_ITS ---
PRIMARY / SECONDARY DIAGNOSIS: dysphagia (R13.10) REFERRING PHYSICIAN: Chanda Mccain CNP CURRENT DIET: regular textures/thin liquids DENTITION: natural teeth, several missing molars MENTAL STATUS: WF for assessment RESPIRATORY STATUS: O2 via room air PREVIOUS MODIFIED BARIUM SWALLOW STUDY: N/A ? REASON FOR REFERRAL: The patient reports painful, difficulty swallowing solids and liquids with daily globus sensation. Patient reports roughly 12lb weight loss in past month. ? MEDICAL HISTORY: The patient is a 59/F with past medical history significant for HTN, CAD, dyspnea upon exertion, hyperlipidemia, diabetes, GERD, nicotine dependence, atherosclerosis of [place] coronary artery of [place] heart without angina pectoris, and s/p angioplasty with stent. ? STUDY FINDINGS: Patient participated in a Modified Barium Swallow (MBS) study on 09/30/2019. Dr. Hernandez was the radiologist present for this evaluation. This study was recorded in the lateral view and images were sent to PACs for storage. The following consistencies were presented to this patient for analysis of oropharyngeal swallow function: thin liquid, nectar thick liquid, pudding, and a regular textured, Saima Doone cookie. Results of the MBS are as follows: ? ? ? PENETRATION / ASPIRATION SCALE (GALINDO): 1 = does not enter airway 2 = enters airway/above vocal folds/ejected 3 = enters airway/above vocal folds/not ejected 4 = enters airway/contacts vocal folds/ejected 5 = enters airway/contacts vocal folds/not ejected 6 = enters airway/below vocal folds/ejected 7 = enters airway/below vocal folds/not ejected despite effort 8 = enters airway/below vocal folds/no effort ? PENETRATION / ASPIRATION SCALE (SCORE): 1) Thin liquids via teaspoon = 1 2) Thin liquids via teaspoon = 1 3) Thin liquids via small single sip from cup = 1 4) Thin liquids via large single sip from cup = 1 5) Thin liquids via sequential sips from cup = 1 6) [place] thick liquids via small single sip from cup = 1 7) Pudding = 1 8) Cookie = 1 9) Thin liquids via single sip from straw = 1 ? IMPRESSION: Mild oropharyngeal dysphagia (R13.12) ? ORAL PHASE CHARACTERIZED BY: LABIAL SEAL: no labial escape TONGUE CONTROL DURING BOLUS MANIPULATION: cohesive bolus between tongue to palatal seal BOLUS PREPARATION / MASTICATION: timely and efficient chewing and mashing BOLUS TRANSPORT / LINGUAL MOTION: brisk tongue motion ORAL RESIDUE: residue collection on oral structures PHARYNGEAL PHASE CHARACTERIZED BY: INITIATION OF PHARYNGEAL SWALLOW: bolus head at posterior angle of ramus at first hyoid excursion SOFT PALATE ELEVATION: no bolus between soft palate and pharyngeal wall LARYNGEAL ELEVATION: partial superior movement of thyroid cartilage/partial approximation of arytenoids cartilage to epiglottic petiole ANTERIOR HYOID EXCURSION: partial anterior movement EPIGLOTTIC MOVEMENT: partial epiglottic inversion LARYNGEAL VESTIBULE CLOSURE AT HEIGHT OF SWALLOW: incomplete laryngeal vestibule closure with narrow column of air/contrast in laryngeal vestibule PHARYNGEAL STRIPPING WAVE: pharyngeal stripping wave present / complete PHARYNGOESOPHAGEAL SEGMENT OPENING: partial distension and partial duration; partial obstruction of flow TONGUE BASE RETRACTION: trace column of contrast between tongue base and posterior pharyngeal wall PHARYNGEAL RESIDUE: trace residue within or on pharyngeal structures ESOPHAGEAL PHASE CHARACTERIZED BY: ?ESOPHAGEAL BOLUS CLEARANCE IN THE UPRIGHT POSITION: could not view INTERPRETATION OF RESULTS: Patient presents with mild oropharyngeal dysphagia (R13.12). Oral phase primarily marked by mild-moderate oral residue when chewing Saima Doone shortbread cookie with piecemeal swallows due to patient reported discomfort when swallowing. Patient had a timely swallow with liquids. Pharyngeal phase primarily marked by reduced closure of the airway during deglutition attributed to slightly reduced anterior hyoid excursion and more significantly insufficient epiglottic inversion. Slight pharyngeal retention noted in the pyriform sinuses. ? RECOMMENDATIONS: DIET TEXTURE RECOMMENDATIONS: Will recommend a regular textured, thin liquid diet.? ? COMPENSATORY STRATEGIES RECOMMENDED: Will recommend small bites/sips, slow rate of intake, seated upright at 90 degrees during PO intake, remain upright for 30-60 minutes post meal (GERD precaution), consideration of adding sauces/gravy to solids to assist in ease of swallowing, and alternate bites with sips. *Would consider further workup via ENT to determine if there is structural damage or irritation due to possible reflux of gastric contents that may be contributing to painful swallowing the patient had described this date. Patient able to comprehend and express recommended intake precautions detailed above with sufficient detail to suggest high likelihood of compliance. Provided brief overview of signs and symptoms of aspiration, with recommendations for the patient to further discuss symptoms with PCP. No further skilled speech-language services warranted at this time targeting dysphagia. ? ADDITIONAL COMMENTS/RECOMMENDATIONS:? ?? Results and recommendations were discussed with the patient immediately following MBS completion, with the patient verbalizing understanding and agreement with all recommendations and education provided. ? IMAGE COUNT: 1403 ? Vonnie Morales M.A., CCC-NUTRITIONAL ASSISTANT Speech Language Pathologist [address] [address] [email or web address] [phone]
== END ==
PROVIDERS: Family Provider Internal Medicine; PCP Internal Medicine; Referring Provider Nurse Practitioner Adult Health; Visit Provider Nurse Practitioner Adult Health
DX: R13.12 Dysphagia, oropharyngeal phase (principal); K21.9 Gastro-esophageal reflux disease without esophagitis
CPT/HCPCS: 74230; 92611

== ENCOUNTER → 2019-10-01 08:46 | Outpatient (CLI) | payer OTHER, SELFPAY ==
[2018-10-10 13:42] VITALS: BMI 32.9
[2019-03-19 08:36] VITALS: BMI 31.7
[2019-08-27 14:03] VITALS: BMI 28.6
--- NOTE | 2019-10-01 08:50 | RAD_ITS ---
STUDY: X-RAY - ESOPHAGUS (BARIUM SWALLOW) WITH FLUOROSCOPY REASON FOR EXAM: Female, 59 years old. Dysphagia for solid. Weight loss. TECHNIQUE: 28 fluoroscopic view(s) of the esophagus were obtained following swallowing of barium. FLUOROSCOPY TIME (if supplied): (0:35) minutes/seconds COMPARISON: None. FINDINGS: There is no demonstrated esophageal foreign body. There is no demonstrated stricture or mucosal abnormality. Normal gastroesophageal junction, without a demonstrated hiatal hernia. The patient ingested a 12 mm tablet of barium without any difficulty. Normal visualized aortic arch and descending thoracic aorta. Normal visualized pulmonary parenchyma. Normal visualized osseous structures of the thorax. RAD/Esophagus Only IMPRESSION: Normal plain film x-ray examination (barium swallow) of the esophagus. Electronically Signed: Carlos Hernandez, at 9:41 EST , Service support ,
== END ==
PROVIDERS: Family Provider Internal Medicine; PCP Internal Medicine; Referring Provider Nurse Practitioner Adult Health; Visit Provider Nurse Practitioner Adult Health
DX: K21.9 Gastro-esophageal reflux disease without esophagitis (principal); R13.12 Dysphagia, oropharyngeal phase
CPT/HCPCS: 74220

== ENCOUNTER → 2019-12-11 06:03 | Outpatient (CLI) | payer OTHER, SELFPAY ==
[2018-10-10 13:42] VITALS: BMI 32.9
[2019-11-30 13:33] VITALS: BMI 29.3
--- NOTE | 2019-12-11 15:24 | STRESSREP ---
Stress Test Report Date: 12-03-2019 Procedure: Pharmacologic stress nuclear imaging study Indications: Chest pain; CAD; PCI Consent: Per the patient Procedure: The patient underwent pharmacologic (Regadenoson) evaluation with a peak heart rate of 98 beats per minute (61 %predicted maximal heart rate) and a peak blood pressure of 132/62 mmHg. The baseline ECG demonstrated sinus bradycardia. The peak pharmacologic ECG demonstrated no obvious ECG changes. There were no cardiac dysrhythmias pretest, during pharmacologic infusion, or recovery. There was no complaint of chest discomfort during pharmacologic infusion or recovery. The examination was discontinued secondary to completion of protocol. Impression: 1. Pharmacologic (Regadenoson) evaluation 2. Peak pharmacologic ECG with no obvious ECG changes. 3. There were no cardiac dysrhythmias pretest, during pharmacologic infusion, or recovery. 4. Nuclear images pending Myocardial perfusion imaging study: Technique: The patient was injected with 14.3 millicuries of technetium 99m Cardiolite and subsequently rest SPECT Cardiolite nuclear imaging was obtained in the horizontal long, vertical long, and short axis views. The patient underwent pharmacologic (Regadenoson) evaluation with a peak heart rate of 98 beats per minute (61 % percent predicted maximal heart rate) and a peak blood pressure of 132/62 mmHg. The patient was injected with 43.9 millicuries of technetium 99m Cardiolite and subsequently stress SPECT Cardiolite nuclear imaging was obtained in the horizontal long, vertical long, and short axis views. A gated Cardiolite study at peak stress was obtained. Interpretation: Rest and stress SPECT Cardiolite nuclear imaging status post realignment, normalization, and attenuation correction demonstrate body motion during image acquisition and a small area of subtle decreased perfusion uptake in the mid anterior segments that appear somewhat more prominent following stress as opposed to rest. There is end systolic thickening and brightening. The gated Cardiolite study demonstrates myocardial thickening and inward wall motion. The reported LVEF is 74 %. Impression: 1. Rest and stress myocardial nuclear imaging demonstrate small area of subtle diminished myocardial perfusion/tracer uptake in the mid anterior segments that appear somewhat more prominent following stress as opposed to rest potentially compatible with shifting soft tissue attenuation/artifact although an area of stress-induced myocardial ischemia cannot necessarily be excluded. 2. The gated Cardiolite study reports an LVEF of 74 %. This note was generated with ScoreGrid software. It may contain incorrect words, spelling, and punctuation that were not noted in checking the note before signing.
== END ==
PROVIDERS: PCP Internal Medicine; Referring Provider Physician Assistant Medical; Visit Provider Physician Assistant Medical
DX: R07.9 Chest pain, unspecified (principal); I25.10 Atherosclerotic heart disease of native coronary artery without angina pectoris
CPT/HCPCS: 78452; 93017; A9500; A4216; J2785

== ENCOUNTER 2019-12-23 07:54 | Day surgery (SDC) | payer OTHER, SELFPAY ==
[2018-10-10 13:42] VITALS: BMI 32.9
[2019-11-30 13:33] VITALS: BMI 29.3
--- NOTE | 2019-12-15 11:40 | RAD_ITS ---
HISTORY: DYSPNEA ON EXERTION, CHEST PAIN, HX HEART STENTS, PRE HEART CATH ADDITIONAL HISTORY: None provided. COMPARISON: 09/18/2018 TECHNIQUE: Frontal and lateral chest radiographs. Number of images including paperwork: 2 FINDINGS: LUNGS AND PLEURA: No consolidation, mass or pleural effusion. Mild interstitial prominence appears similar. CARDIAC SILHOUETTE: Unremarkable. MEDIASTINUM AND QING: Aortic calcification. UPPER ABDOMEN: Unremarkable. SKELETON AND SOFT TISSUES: No acute findings. Degenerative changes. Mild right convex thoracic scoliosis. OTHER DEVICES AND HARDWARE: Coronary stent. RAD/Chest PA and Lateral IMPRESSION: No acute cardiopulmonary abnormality. at 2223 Reported and signed by: Trisha Dumont MD Electronically Signed: Trisha Dumont MD at 22:23 EST Tel , Service support ,
[2019-12-15 12:27] LABS: Hematocrit 42.1 % (37-47); Hemoglobin 13.4 g/dL (12.0-15.0); Mean Corp Hgb Conc 31.8 g/dL (32-36); Mean Corpuscular Hgb 27.9 pg (27.0-32.0); Mean Corpuscular Volume 87.7 fL (81-99); Mean Platelet Vol. 10.5 fl (6.2-12.0); Platelet Count 229 K/mm3 (150-450); RBC Distribution Width CV 14.6 % (11.6-14.6); RBC Distribution Width SD 47.3 fl (35.1-43.9); White Blood Count 7.1 K/mm3 (4.4-11.0)
[2019-12-15 12:34] LABS: International Normalized Ratio 0.9; Prothrombin Time (Protime)PT. 12.3 SECONDS (11.7-14.9)
[2019-12-15 12:35] LABS: Partial Thromboplast Time 25.1 Seconds (24.1-36.2)
[2019-12-15 12:46] LABS: Anion Gap 6 (5-15); BUN 12 mg/dL (7-18); BUN/Creat Ratio 16.4 RATIO (10-20); Calcium,Total 9.3 mg/dL (8.5-10.1); Chloride 106 mmol/L (98-107); Creatinine, Serum 0.73 mg/dL (0.55-1.02); EST Glomerular Filtration Rate 86 mL/min (>60); Est Glom Filt Rate - Afr Amer 104 mL/min (>60); Glucose 153 mg/dL (74-106); Potassium 4.3 mmol/L (3.5-5.1); Sodium Level 140 mmol/L (136-145)
[2019-12-22 08:28] VITALS: BMI 29.3
--- NOTE | 2019-12-23 09:09 | PCM.HP.BLA ---
<Lucian Bailey - Last Filed: 12/23/19 09:09> History and Physical Date of Admission: 12/23/19 Details: MICKI PACK, is a 59 F who presents to the clinical laboratory medical director today for a heart catheterization. She has a history of coronary artery disease status post stenting to her proximal OM and LAD in October 2016 and again to her LAD in August 2017 for in-stent restenosis and drug-eluting stent to mid LAD in September 2018, hyperlipidemia, diabetes mellitus, and nicotine dependence. In February of 2019, she presented to our office with continued chest discomfort in the center of her chest. She did undergo repeat heart catheterization in which she needed to have stenting to her OM 2 and OM 4. Pt sts that since she has more SOB with exertion, specifically when carrying something. She still does have chest pain, it is to the left of her chest and it does radiate to the arm. The radiation is new. It occurs 4-5 times a day. She has not taken any NTG for this. She sts that this lasts about 1-2 minutes. It is not brought on by anything in particular. She sts that this is similar to what she had prior to her previous stents. She does not have SOB at rest, or orthopnea. She does occasionally have lightheadedness/dizziness. This occurs a few times a day. This is brought on with positional changes. She does has not had any near syncope/syncope. She does not have any edema. She was previously on Imdur prior to her stent, she has since discontinued, she does not think that this helped with the discomfort. She has not used her albuterol. She established with Chanda Mccain for GI issues, these test have been normal. She has not lost any further weight. She still notes fatigue. Decreasing the metoprolol did not help. Intake: See EMR Intake Visit Reasons: [facility] [employer] Manager Required: No Accompanied by: None Is patient in pain?: No Allergies diltiazem Allergy (Verified 11/30/19 13:33) Unknown levofloxacin [From Levaquin] Adverse Reaction (Verified 11/30/19 13:33) Upset Stomach meperidine HCl [From Demerol] Adverse Reaction (Verified 11/30/19 13:33) Vomiting rosuvastatin calcium [From Crestor] Adverse Reaction (Verified 11/30/19 13:33) Pain in joints Tetracyclines Adverse Reaction (Verified 0217/20 13:33) Upset Stomach tramadol Adverse Reaction (Verified 11/30/19 13:33) Diarrhea Medications: See EMR [facility] Social History (Updated 11/30/19 @ 14:38 by MELODY Vera) Smoking Status: Current every day smoker alcohol intake: never substance use type: does not use caffeine: Yes Type: coffee Number of servings: 3 what type of physical activity do you participate in: other details: cardiac rehab frequency: 3-4 times per week duration: 15-30 minutes/day seatbelt use: always do you feel safe at home: Yes ROS Const Const: Positive for fatigue; negative for weakness, fever(s) or headache(s) Eyes Eyes: Negative for blind spots, loss of peripheral vision or transient loss of vision ENT ENT: Positive for dizziness; negative for headache(s), tinnitus or Nosebleed/epistaxis Cardio Chest Pain: Yes Palpitations: No Edema: None Muscle aches with walking: None Resp Respiratory: Positive for SOB with activity; negative for SOB at rest, SOB orthopnea\SOB lying down or Cough GI GI: Negative nausea, vomiting, heartburn or vomiting blood/hematemesis : Negative for hematuria Musc Musc: Negative for muscle aches/ myalgia Neuro Neuro: Positive for dizziness; negative for lightheadedness, near syncope, syncope, orthostatic symptoms, headache(s) or weakness Kiet Hematologic/Lymphatic: Negative for easy bleeding Endo Endo: Positive for fatigue Cardiology Exam Const Appearance: cooperative, no acute distress, well groomed and in distress Nutritional Appearance: thin Orientation: alert, awake and oriented x3 Head Head: normal to inspection, normocephalic and atraumatic Ears: hearing grossly normal bilaterally Nose: external nose normal Face and Sinus: face symmetric Mouth: oral mucosae normal Eyes Eyelids: eyelids normal Conjunctivae: conjunctivae normal EOM: EOM intact bilaterally Neck Neck: normal visual inspection, full ROM and no JVD Carotids: normal carotid upstroke Chest Chest inspection: normal inspection of the chest, symmetric chest movement and normal respiratory effort; negative cough Auscultation: Bilateral: Clear to Auscultation Cardio Rate: regular rate Rhythm: regular rhythm Heart sounds: S1 normal, S2 normal and positive S4; negative rub, gallop or murmur Neuro General: alert, awake, oriented x3 and moves all extremities Skin Skin: no rashes or lesions noted Extremities Pulses: Normal: Right Posterior Tibial Pulse, Left Posterior Tibial Pulse, Right Radial Pulse, Left Radial Pulse Lower Extremity Edema: None: Bilateral Psych Psychological: flat affect Assessment & Plan 1. Atherosclerosis of [place] coronary artery of [place] heart without angina pectoris I25.10 PCI/BEAU of the prox OM3 and LAD 10/19/16; PCI/BEAU to prox LAD 09/10/17; PCI/BEAU to the mid LAD 10/10/18; Successful PTCA/BEAU to proximal OM#2,Successful PTCA/BEAU proximal OM#4 03/04/2019 Plan Patient does have some worsening shortness of breath and chest discomfort that could be concerning for angina. Her stress test from 12/11/2019 small area of subtle diminished myocardial perfusion/tracer uptake in the mid anterior segments that appear somewhat more prominent following stress as opposed to rest potentially compatible with shifting soft tissue attenuation/artifact although an area of stress-induced myocardial ischemia cannot necessarily be excluded. Thus, with her history, symptoms, and test results, she will proceed with [facility] to evaluate further. Based on results, further recommendation will be made. 2. Essential hypertension I10 Plan Blood pressure is well controlled on current medications, we do not recommend any changes at this time. 3. Hyperlipemia, mixed E78.2 Plan Lipid profile from February 2019 demonstrates total cholesterol 164, HDL 35, LDL 65. Triglycerides are 322. Suspect her triglycerides are elevated due to her diabetes. She will continue with her high intensity statin. Supplemental Info Supplemental Information Transthoracic echocardiogram: 10-02-16 Interpretation Summary Left ventricular systolic function is normal. The estimated ejection fraction is 60 %. The left atrium is mildly enlarged. Trivial mitral valve insufficiency. Trivial tricuspid valve insufficiency. Mild focal aortic valve calcification. Bubble contrast study negative for right to left interatrial shunt. Stress Test Report Date: 12-03-2019 Procedure: Pharmacologic stress nuclear imaging study Indications: Chest pain; CAD; PCI Consent: Per the patient Procedure: The patient underwent pharmacologic (Regadenoson) evaluation with a peak heart rate of 98 beats per minute (61 %predicted maximal heart rate) and a peak blood pressure of 132/62 mmHg. The baseline ECG demonstrated sinus bradycardia. The peak pharmacologic ECG demonstrated no obvious ECG changes. There were no cardiac dysrhythmias pretest, during pharmacologic infusion, or recovery. There was no complaint of chest discomfort during pharmacologic infusion or recovery. The examination was discontinued secondary to completion of protocol. Impression: 1. Pharmacologic (Regadenoson) evaluation 2. Peak pharmacologic ECG with no obvious ECG changes. 3. There were no cardiac dysrhythmias pretest, during pharmacologic infusion, or recovery. 4. Nuclear images pending Myocardial perfusion imaging study: Technique: The patient was injected with 14.3 millicuries of technetium 99m Cardiolite and subsequently rest SPECT Cardiolite nuclear imaging was obtained in the horizontal long, vertical long, and short axis views. The patient underwent pharmacologic (Regadenoson) evaluation with a peak heart rate of 98 beats per minute (61 % percent predicted maximal heart rate) and a peak blood pressure of 132/62 mmHg. The patient was injected with 43.9 millicuries of technetium 99m Cardiolite and subsequently stress SPECT Cardiolite nuclear imaging was obtained in the horizontal long, vertical long, and short axis views. A gated Cardiolite study at peak stress was obtained. Interpretation: Rest and stress SPECT Cardiolite nuclear imaging status post realignment, normalization, and attenuation correction demonstrate body motion during image acquisition and a small area of subtle decreased perfusion uptake in the mid anterior segments that appear somewhat more prominent following stress as opposed to rest. There is end systolic thickening and brightening. The gated Cardiolite study demonstrates myocardial thickening and inward wall motion. The reported LVEF is 74 %. Impression: 1. Rest and stress myocardial nuclear imaging demonstrate small area of subtle diminished myocardial perfusion/tracer uptake in the mid anterior segments that appear somewhat more prominent following stress as opposed to rest potentially compatible with shifting soft tissue attenuation/artifact although an area of stress-induced myocardial ischemia cannot necessarily be excluded. 2. The gated Cardiolite study reports an LVEF of 74 %. Cardiac catheterization: 10-10-18 CORONARY ANGIOGRAPHY DOMINANCE: Left Dominant LEFT HEART ASSESSMENT Left Ventricular Ejection Fraction: by LV Gram 60 % Normal LV wall motion Elevated Left Ventricular End Diastolic Pressure LVEDP: 26 mmHg LEFT MAIN: Angiographically normal LEFT ANTERIOR DECENDING ARTERY: PROX LAD: Previously placed stent is patent MID LAD: S/P stent: Eccentric: Hazy: 75 % Stenosis DIAGONAL 1: Proximal - Mild luminal irregularities CIRCUMFLEX ARTERY: MID CIRC: Mild luminal irregularities OM 1: Proximal - Mild luminal irregularities OM 2: Proximal - Eccentric: 50 % Stenosis, Mid - Diffuse: Irregular: 50 % Stenosis OM 3: Proximal - Pre Stent: Eccentric: 50-75 % Stenosis, Proximal - Previously placed stent is patent RIGHT CORONARY ARTERY: Small: Non Dominant: Diffuse Severe Stenosis VALVE FINDINGS: Normal Aortic Valve function Normal Mitral Valve function AORTIC ROOT: Angiographically normal PCI: 10-10-18 LAD. 2.5x18 Resolute Drug Eluting stent Cardiac catheterization: 03/04/2019 DOMINANCE: Left Dominant LEFT HEART ASSESSMENT Left Ventricular Ejection Fraction: by LV Gram 55 % Inferior Mid Hypokinesis Elevated Left Ventricular End Diastolic Pressure LVEDP: 16 mmHg LEFT MAIN: Angiographically normal LEFT ANTERIOR DESCENDING ARTERY: PROX LAD: Previously placed stent is patent MID LAD: Previously placed stent is patent DIAGONAL 1: Proximal - Mild luminal irregularities CIRCUMFLEX ARTERY: Mild luminal irregularities OM 1: Proximal - Mild luminal irregularities OM 2: Proximal - eccentric: 75 % Stenosis, Mid - diffuse: irregular: 50 % Stenosis OM 3: Proximal - pre stent: 75 % Stenosis, Proximal - Previously placed stent is patent RIGHT CORONARY ARTERY: small nondominant: diffuse severe stenosis VALVE FINDINGS: Normal Aortic Valve function Normal Mitral Valve function AORTIC ROOT: Angiographically normal PCI 03/04/19: Successful PTCA/BEAU to proximal OM#2 with a 3.0 x 38 Promus Synergy, post dilated throughout with a 3.0 x 12 NC Balloon; 75%-->0%, no dissection. Pt had similar chest pain symptoms with stent deployment. Successful PTCA/BEAU proximal OM#4 with a 2.25 x 12 Promus Synergy, 75%-->0%, no dissection. <Isac Davila - Last Filed: 12/23/19 09:32> History and Physical I have re-examined the patient. There are no clinical changes since date of exam.
--- NOTE | 2019-12-23 10:34 | CL.D_ITS ---
Patient Name: MICKI PACK Study Date: 12/23/2019 Performing: Isac Davila MD Ht: 64.17 inches 163 cm : 1960 Wt: 171.96 lbs 78 kg Age: 59 Gender: female BSA: 1.84 PROCEDURE(S) PERFORMED ZC21-RII/COR/LV CLINICAL PROFILE AND INDICATIONS Indications: Suspected CAD Heart Failure: None Stress/Imaging Date: 12/03/2019 Angina Classification Anginal Classification w/in 2 Weeks: CCS III CAD Presentations: Other: JONES: angina pectoris equivalent CONCLUSIONS Elevated Left Ventricular End Diastolic Pressure Segmented LV systolic dysfunction- Mild LVEF: by LV gram 60 % [place] Multivessel CAD RECOMMENDATIONS Risk factor modification Medical therapy DESCRIPTION OF PROCEDURE The patient arrived to the procedure lab. The risks and benefits of the procedure as well as a full d escription of our services here and current unavailability of surgical backup were fully explained to the patient and/or their significant other prior to the catheterization. The Timeout was completed, verifying the correct patient and procedure. The patient's procedural site was prepped and draped in the usual fashion. Local anesthetic was given subcutaneously to right groin region with Lidocaine 2%. Using a modified Seldinger technique, arterial access was obtained via the right femoral artery, a 4 Fr sheath was inserted Left Coronary Artery selective angiography was performed in multiple views us ing a 4 Fr. JL5 catheter. Right Coronary Artery selective angiography was then performed in multiple views using a 4 Fr. 3DRC catheter. Left Ventriculography was performed in HASKINS projection using a 4 Fr . Pigtail catheter. LV to AO pullback pressures were then recorded.The arterial sheath was pulled and manual compression applied until hemostasis is achieved. CORONARY ANGIOGRAPHY DOMINANCE: Left Dominant LEFT HEART ASSESSMENT Left Ventricular Ejection Fraction: by LV Gram 60 % Inferior Mid Hypokinesis Elevated Left Ventricular End Diastolic Pressure LVEDP: 18 mmHg LEFT MAIN: Angiographically normal LEFT ANTERIOR DESCENDING ARTERY: PROX LAD: Previously placed stent is patent MID LAD: Previously placed stent is patent DIAGONAL 1: Proximal - Mild luminal irregularities (small caliber vessel) CIRCUMFLEX ARTERY: PROX CIRC: Mild luminal irregularities MID CIRC: Mild luminal irregularities OM 2: Mid - Previously placed stent is patent OM 3: Proximal - Previously placed stent is patent RIGHT CORONARY ARTERY: small nondominant vessel: diffuse severe stenosis AORTIC ROOT: Angiographically normal COMPLICATIONS No Complications PROCEDURE MEDICATIONS Versed 1 mg IV Oxygen: 2 L/min via nasal cannula SUMMARY OF HEMODYNAMIC DATA Time AIR REST ECG 08:19:50 AO 111/64 (86) SA 10:01:33 LV 140/-6, 22 10:08:10 LV 135/-10, 18 10:08:16 LV 130/-2, 21 10:09:41 LV 133/-1, 19 10:09:47 LVp 131/-5, 18 10:09:52 AOp 132/60 (89) 10:09:57 Signed By Isac Davila MD On 12/23/2019 10:34:28 Isac Davila MD
== END 2019-12-23 14:35 | disposition home or self-care (01) ==
PROVIDERS: PCP Internal Medicine; Referring Provider Internal Medicine Cardiovascular Disease; Visit Provider Internal Medicine Cardiovascular Disease
DX: I25.119 Atherosclerotic heart disease of native coronary artery with unspecified angina pectoris (principal); E11.9 Type 2 diabetes mellitus without complications; I10 Essential (primary) hypertension; E78.2 Mixed hyperlipidemia; Z79.84 Long term (current) use of oral hypoglycemic drugs; Z79.82 Long term (current) use of aspirin; Z79.899 Other long term (current) drug therapy; Z88.8 Allergy status to other drugs, medicaments and biological substances; Z88.1 Allergy status to other antibiotic agents; Z88.5 Allergy status to narcotic agent; F17.200 Nicotine dependence, unspecified, uncomplicated; Z95.5 Presence of coronary angioplasty implant and graft
CPT/HCPCS: 36415; 71046; 80048; 85027; 85610; 85730; 93458; 99152; 99153; J7040; C1769; C1894; Q9967

== ENCOUNTER → 2019-12-25 12:02 | Outpatient (CLI) | payer OTHER, SELFPAY ==
[2018-10-10 13:42] VITALS: BMI 32.9
[2019-12-22 08:28] VITALS: BMI 29.3
[2019-12-25 13:16] LABS: Anion Gap 5 (5-15); BUN 11 mg/dL (7-18); BUN/Creat Ratio 15.6 RATIO (10-20); Calcium,Total 8.8 mg/dL (8.5-10.1); Chloride 107 mmol/L (98-107); EST Glomerular Filtration Rate 90 mL/min (>60); Est Glom Filt Rate - Afr Amer 109 mL/min (>60); Glucose 163 mg/dL (74-106); Potassium 4.1 mmol/L (3.5-5.1); Sodium Level 140 mmol/L (136-145)
== END ==
PROVIDERS: PCP Internal Medicine; Referring Provider Internal Medicine Cardiovascular Disease; Visit Provider Internal Medicine Cardiovascular Disease
DX: I25.10 Atherosclerotic heart disease of native coronary artery without angina pectoris (principal)
CPT/HCPCS: 36415; 80048

== ENCOUNTER → 2020-09-02 13:02 | Outpatient (CLI) | payer OTHER, SELFPAY ==
[2018-10-10 13:42] VITALS: BMI 32.9
[2020-06-08 14:01] VITALS: BMI 32.1
--- NOTE | 2020-09-02 13:05 | CT_ITS ---
STUDY: LOW DOSE CT LUNG CANCER SCREENING REASON FOR EXAM: Female, 60 years old. LUNG NODULE, LUNG SCREEN, SMOKER X 47 YRS 1PPD RADIATION DOSAGE (If Supplied By Facility): CTDIvol = ( 3.40 ) mGy, DLP = ( 111.04 ) mGycm TECHNIQUE: No contrast was administered. Low dose technique was utilized (average mAS-38 and kVp 120). 1.25 mm axial source images with a slice interval of 1.25-mm were reconstructed in lung windows. 2.5 mm axial source images with a slice interval of 2.5-mm were reconstructed in lung windows. 5.0 mm axial source images with a slice interval of 5.0-mm were reconstructed in soft tissue windows. Nodule measured using lung windows on PACS and/or independent workstation with automated measurement of minimum and maximum diameter. Nodule measurement reported as average diameter rounded to the nearest whole number. Growth is defined as an increase ins size of greater than 1.5 mm. COMPARISON: Comparison is made with prior study dated 05/05/2017. Diffuse enlargement of the left lobe of the thyroid. NODULES: Stable 2.8 mm pleural-based nodule in the lateral aspect of the right upper lobe as seen on axial image #40 Emphysema: Diffuse emphysematous changes worse in the upper lobes with evidence of a centrilobular changes. Endobronchial lesion: None Aorta: Atherosclerotic calcific plaque of the aortic arch. Coronary arteries: Coronary artery calcification. Other chest and abdominal findings: CT/Low Dose CT Lung Screening IMPRESSION: Lung-RADS category 2 - Continue annual screening with LDCT in 12 months. IMPORTANT NOTES FOR USE: ACR Lung-RADS Version 1.0 Assessment Categories Release Date: February 08, 2014 Category: Coded 0-4 bases on nodule(s) with highest degree of suspicion. Negative screen is defined as categories 1 and 2; a positive screen is defined as categories 3 and 4. Category 3 and 4A nodules that are unchanged on interval CT should be coded as category 2, and individuals returned to screening in 12 months. Category 4X: Category 3 or 4 nodules with additional imaging findings that increase the suspicion of lung cancer, such as spiculation, GGN that doubles in size in 1 year, enlarged lymph notes, etc. Category Modifiers: S (significant finding unrelated to lung cancer) and C (prior history of treated lung cancer) may be added to the 0-4 Lung-RADS Electronically Signed: Carlos Hernandez, at 14:31 EST , Service support ,
== END ==
PROVIDERS: PCP Internal Medicine; Referring Provider Internal Medicine; Visit Provider Internal Medicine
DX: Z12.2 Encounter for screening for malignant neoplasm of respiratory organs (principal); R91.1 Solitary pulmonary nodule; F17.200 Nicotine dependence, unspecified, uncomplicated
CPT/HCPCS: G0297

== ENCOUNTER → 2020-12-27 09:32 | Outpatient (CLI) | payer OTHER, SELFPAY ==
[2018-10-10 13:42] VITALS: BMI 32.9
[2020-11-04 08:46] VITALS: BMI 31.1
[2020-12-20 13:22] VITALS: BMI 31.0
--- NOTE | 2020-12-27 13:10 | PFTCOMP ---
COMPLETE PULMONARY FUNCTION TEST INTERPRETATION Brief HPI: Patient is a 60 year old female, currently under the care of Dr. Elliott, who presents to [facility] for complete pulmonary function tests secondary to diagnosis of nicotine dependence. Respiratory therapist reports good effort and reproducible results. Interpretation: Forced expiration spirometry shows no large airways obstructive ventilatory defect with an FEV1 of 95% predicted. There is no significant bronchodilator response by strict ATS criteria. Spirograms are of good quality and plateau normally. The respiratory flow volume loop shows a normal pattern. Lung volumes by body plethysmography show a normal total lung capacity at 4.53 L, 93% predicted. All other lung volumes are within normal limits. Diffusion capacity by carbon monoxide is decreased at 62% predicted. The airway resistance is normal. No previous pulmonary function tests were available for review. Impression: Isolated reduction in diffusion capacity consistent with a possible pulmonary vascular disease
== END ==
PROVIDERS: PCP Internal Medicine; Referring Provider Internal Medicine Critical Care Medicine; Visit Provider Internal Medicine Critical Care Medicine
DX: F17.210 Nicotine dependence, cigarettes, uncomplicated (principal)
CPT/HCPCS: 94060; 94726; 94729

== ENCOUNTER → 2021-01-13 11:31 | Outpatient (CLI) | payer OTHER, SELFPAY ==
[2018-10-10 13:42] VITALS: BMI 32.9
[2020-12-20 13:22] VITALS: BMI 31.0
--- NOTE | 2021-01-13 11:39 | CDU_ITS ---
Reason For Study: Dizziness Rt. Velocities/BP Lt. Velocities/BP Prox CCA 68.2/10.8 cm/sec. Prox CCA 64.3/18.6 cm/sec. Mid CCA 72.1/9.5 cm/sec. Mid CCA 51.2/18.6 cm/sec. Dist CCA 52.6/12.1 cm/sec. Dist CCA 55.1/17.3 cm/sec. Prox ICA 63/17.3 cm/sec. Prox ICA 66.7/15.1 cm/sec. Mid ICA 63/18.6 cm/sec. Mid ICA 80.9/18.7 cm/sec. Dist ICA 66.9/16 cm/sec. Dist ICA 136.8/31.4 cm/sec. Rt. ICA/CCA = 0.98. Lt. ICA/CCA = 2.48. Prox ECA 79.9/8.2 cm/sec. Prox ECA 375.4/107 cm/sec. Rt. Vert. 53.9/12.1 cm/sec. Lt. Vert. 55.3/13.5 cm/sec. Right Extracranial There is homogeneous, smooth atherosclerotic plaque noted in the right common carotid artery. There is intimal thickening but no significant atherosclerotic plaque noted in the right internal carotid artery. There is intimal thickening but no significant atherosclerotic plaque noted in the right external carotid artery. Antegrade flow is noted in the right vertebral artery. Left Extracranial There is homogeneous, smooth atherosclerotic plaque noted in the left common carotid artery. There is intimal thickening but no significant atherosclerotic plaque noted in the left internal carotid artery. The left internal carotid artery is very tortuous. There is heterogeneous, irregular atherosclerotic plaque noted in the left external carotid artery. Antegrade flow is noted in the left vertebral artery. Procedure Carotid Duplex [id number]. This is a Carotid Duplex examination using B-mode, color flow and specral Doppler. Exam performed in department. VL/Carotid Duplex Ultrasound Interpretation Summary No hemodynamically significant plaque or stenosis right extracranial internal c arotid artery with intimal thickening and less than 50% stenosis Less than 50% stenosis right external carotid artery Intimal thickening and tortuosity of the left internal carotid artery with less than 50% stenosis. Velocity change is noted within an area of tortuosity. Greater than 50% stenosis left external carotid artery Patent and antegrade vertebrals bilaterally Ordering Physician: Lucian Bailey Referring Physician: Angelique Tejada M.D. Performed By: Pati Bermudez RVT
== END ==
PROVIDERS: PCP Internal Medicine; Referring Provider Nurse Practitioner Family; Visit Provider Nurse Practitioner Family
DX: I65.22 Occlusion and stenosis of left carotid artery (principal); R42 Dizziness and giddiness; R07.89 Other chest pain
CPT/HCPCS: 93225; 93226; 93880

== ENCOUNTER → 2021-02-22 07:05 | Outpatient (CLI) | payer OTHER, SELFPAY ==
[2018-10-10 13:42] VITALS: BMI 32.9
[2021-01-30 13:53] VITALS: BMI 34.0
--- NOTE | 2021-02-22 07:09 | ECHOD_ITS ---
Reason For Study: Dizziness, AoV Calcification Procedure This was a 2D Doppler, Color Flow transthoracic echocardiogram. The study was technically difficult. Exam performed in department. Left Ventricle Normal LV size. Left ventricular systolic function is normal. The estimated ejection fraction is 60 %. No evidence for diastolic dysfunction. No regional wall motion abnormalities noted. Right Ventricle Normal RV size. Normal systolic function. Atria Normal left atrium. Normal right atrium. No doppler evidence for ASD. Mitral Valve There is no mitral annular calcification. Normal mitral valve. Trivial mitral valve insufficiency. Tricuspid Valve Normal tricuspid valve. Trivial tricuspid valve insufficiency. Right ventricular systolic pressure estimated to be 26 mmHg. Aortic Valve Trisinus/trileaflet aortic valve. Mild focal aortic valve calcification. Pulmonic Valve The pulmonic valve is not well visualized. Great Vessels Normal sized aortic root. Pericardium/Pleural No pericardial effusion. MMode/2D Measurements & Calculations LVIDd: 5.1 cm IVSd: 1.0 cm Ao root diam: 3.5 cm LVIDs: 3.6 cm LVPWd: 1.1 cm RVDd: 2.1 cm FS: 30.2 % LAV(MOD-bp): 35.1 ml LVAd ap4: 22.2 cm2 SV(MOD-sp4): 37.5 ml LAV(MOD-bp) Indexed: 18.0 ml/m2 LVLd ap4: 7.1 cm LAV(MOD-sp2): 30.4 ml EDV(MOD-sp4): 58.5 ml LAV(MOD-sp4): 37.4 ml EDV(sp4-el): 58.6 ml LVAs ap4: 11.5 cm2 LVLs ap4: 5.6 cm ESV(MOD-sp4): 21.0 ml ESV(sp4-el): 20.0 ml EF(MOD-sp4): 64.1 % EF(sp4-el): 65.9 % SV(sp4-el): 38.6 ml LA A4 area: 15.0 cm2 LA dimension(2D): 3.6 cm RA A4 area: 8.4 cm2 Doppler Measurements & Calculations MV E max remberto: 43.8 cm/sec Lat Peak E' Remberto: 6.1 cm/sec Med Peak E' Remberto: 5.0 cm/sec MV A max remberto: 64.9 cm/sec E/E' lat: 7.1 E/E' med: 8.7 MV E/A: 0.67 Ao V2 max: 163.9 cm/sec LV V1 max: 127.2 cm/sec PA V2 max: 128.1 cm/sec Ao max P.7 mmHg LV V1 max P.5 mmHg Ao V2 mean: 108.3 cm/sec Ao mean P.3 mmHg Ao V2 VTI: 33.1 cm TR max remberto: 241.0 cm/sec TR max P.2 mmHg ECHO/Echo Complete Interpretation Summary The study was technically difficult. Left ventricular systolic function is normal. The estimated ejection fraction is 60 %. Trivial mitral valve insufficiency. Trivial tricuspid valve insufficiency. Mild focal aortic valve calcification. Right ventricular systolic pressure estimated to be 26 mmHg. No evidence for diastolic dysfunction. Ordering Physician: Lucian Bailey Referring Physician: Angelique Tejada Performed By: Hermila Bailey, RDCS, RVT
--- NOTE | 2021-02-22 09:41 | STRESSREP ---
Stress Test Report Date: 02-22-2021 Procedure: Pharmacologic stress nuclear imaging study Indications: Chest pain; CAD; PCI Consent: Per the patient Procedure: The patient underwent pharmacologic (Regadenoson 0.4mg ) evaluation with a peak heart rate of 94 beats per minute (59%predicted maximal heart rate) and a peak blood pressure of 142/70 mmHg. The baseline ECG demonstrated sinus rhythm. The peak pharmacologic ECG demonstrated no obvious ECG changes. There were no cardiac dysrhythmias pretest, during pharmacologic infusion, or recovery. There was no complaint of chest discomfort during pharmacologic infusion or recovery. The examination was discontinued secondary to completion of protocol. Impression: 1. Pharmacologic (Regadenoson) evaluation 2. Peak pharmacologic ECG with no obvious ECG changes. 3. There were no cardiac dysrhythmias pretest, during pharmacologic infusion, or recovery. 4. Nuclear images pending Myocardial perfusion imaging study: Technique: The patient was injected with 11.7 millicuries of technetium 99m Cardiolite and subsequently rest SPECT Cardiolite nuclear imaging was obtained in the horizontal long, vertical long, and short axis views. The patient underwent pharmacologic (Regadenoson) evaluation with a peak heart rate of 94 beats per minute (59% percent predicted maximal heart rate) and a peak blood pressure of 142/70 mmHg. The patient was injected with 34.8 millicuries of technetium 99m Cardiolite and subsequently stress SPECT Cardiolite nuclear imaging was obtained in the horizontal long, vertical long, and short axis views. A gated Cardiolite study at peak stress was obtained. Interpretation: Rest and stress SPECT Cardiolite nuclear imaging status post realignment, normalization, and attenuation correction demonstrate at rest the appearance of diminished myocardial perfusion/tracer uptake in portions of the mid anterior segments and status post stress the appearance of diminished myocardial perfusion/tracer uptake in portions of the basal to mid anterior segments. There is diminished end systolic thickening and brightening. The gated Cardiolite study demonstrates diminished myocardial thickening and inward wall motion. The reported LVEF is 41%. Impression: 1. Rest and stress SPECT. Nuclear imaging demonstrate myocardial perfusion changes appearing compatible with an area of previous myocardial injury/infarction involving portions of the mid anterior segments with post-rest myocardial perfusion changes suggestive of an element of taya-infarct related myocardial ischemia. 2. The gated Cardiolite study reports an LVEF of 41%. This note was generated with Dragon dictation software. It may contain incorrect words, spelling, and punctuation that were not noted in checking the note before signing.
== END ==
PROVIDERS: PCP Internal Medicine; Referring Provider Nurse Practitioner Family; Visit Provider Nurse Practitioner Family
DX: R42 Dizziness and giddiness (principal); I35.9 Nonrheumatic aortic valve disorder, unspecified; R07.89 Other chest pain; R55 Syncope and collapse; R06.09 Other forms of dyspnea; I25.10 Atherosclerotic heart disease of native coronary artery without angina pectoris; I10 Essential (primary) hypertension; E78.2 Mixed hyperlipidemia; F17.210 Nicotine dependence, cigarettes, uncomplicated; Z95.9 Presence of cardiac and vascular implant and graft, unspecified
CPT/HCPCS: 78452; 93017; 93306; A9500; A4216; J2785

== ENCOUNTER 2021-03-21 07:49 | Day surgery (SDC) | payer OTHER, SELFPAY ==
[2018-10-10 13:42] VITALS: BMI 32.9
[2021-01-30 13:53] VITALS: BMI 34.0
--- NOTE | 2021-03-06 09:30 | RAD_ITS ---
STUDY: X-RAY CHEST REASON FOR EXAM: Female, 60 years old. Chest Pain TECHNIQUE: PA and lateral views of the chest. COMPARISON: Comparison is made with prior study dated 12/15/2019. FINDINGS: Hyperinflation. The lungs are clear. There is no demonstrated pleural abnormality. Normal size heart. Normal mediastinum and caroline. Normal visualized pulmonary arteries. Normal visualized aortic arch and descending thoracic aorta. There are mild degenerative changes of the visualized thoracic spine. Mild dextroscoliosis. Normal visualized ribs, clavicles, and shoulders. There is no demonstrated abnormality of the visualized soft tissue structures of the upper abdomen. RAD/Chest PA and Lateral IMPRESSION: No acute abnormality is seen. Electronically Signed: Carlos Hernandez MD at 14:34 EDT , Service support ,
[2021-03-06 10:09] LABS: Hematocrit 40.9 % (37-47); Hemoglobin 13.2 g/dL (12.0-15.0); Mean Corp Hgb Conc 32.3 g/dL (32-36); Mean Corpuscular Hgb 28.1 pg (27.0-32.0); Mean Corpuscular Volume 87.2 fL (81-99); Mean Platelet Vol. 10.5 fl (6.2-12.0); Platelet Count 227 K/mm3 (150-450); RBC Distribution Width CV 13.5 % (11.6-14.6); RBC Distribution Width SD 43.1 fl (35.1-43.9); Red Blood Count 4.69 M/mm3 (4.2-5.4); White Blood Count 8.1 K/mm3 (4.4-11.0)
[2021-03-06 10:18] LABS: Prothrombin Time (Protime)PT. 12.4 SECONDS (11.7-14.9)
[2021-03-06 10:19] LABS: Partial Thromboplast Time 24.6 Seconds (24.1-36.2)
[2021-03-06 10:37] LABS: Anion Gap 7 (5-15); BUN 11 mg/dL (7-18); BUN/Creat Ratio 13.6 RATIO (10-20); Chloride 105 mmol/L (98-107); Creatinine, Serum 0.81 mg/dL (0.55-1.02); EST Glomerular Filtration Rate 76 mL/min (>60); Est Glom Filt Rate - Afr Amer 92 mL/min (>60); Glucose 191 mg/dL (74-106); Sodium Level 138 mmol/L (136-145)
[2021-03-10 13:40] VITALS: BMI 33.1
[2021-03-17 14:11] VITALS: BMI 33.1
--- NOTE | 2021-03-20 18:22 | PCM.HP.BLA ---
History and Physical Date of Admission: 03/21/21 [facility] [id number], [place] [id number] OFFICE VISITDate of Service: 03/10/21 MR#:[id number]: MICKI PACK ARep #[id number]:[id number] Provider: DELBERT Dillon RoofAge/Sex: 60/F Location:[facility].WHGStatus:Signed HPI HPI History of Present Illness Surgical H&P: Yes Details: MICKI PACK, is a 60 F who presents to the office today for a cardiovascular follow up with a history of coronary artery disease status post stenting to her proximal OM and LAD in October 2016 and again to her LAD in August 2017 for in-stent restenosis, and drug-eluting stent to mid LAD in September 2018, hyperlipidemia, diabetes mellitus, KALI (not currently treated), and nicotine dependence. At office 01/30/2021 she acknowledged sharp chest pains and fatigue. She proceeded with stress test on 02/22/2021 that showed myocardial perfusion changes appearing compatible with an area of previous myocardial injury/infarction involving portions of the mid anterior segments with post-rest myocardial perfusion changes suggestive of an element of taya-infarct related myocardial ischemia. She acknowledges dizziness, chest pain, lightheadedness, and joint pain. She denies shortness of breath activity, syncope, presyncope, orthopnea, or PND. Intake Vital Signs 03/10/21 13:40 Height 5 ft 4 in Weight: 193 lb BMI 33.1 BP 126/72 H Blood Pressure Location Lt brachial Position Sitting Respiration 16 Pulse 76 Pulse Source Auscultation Intake Visit Reasons: 6 wk fu/ updated H & P for cath Route Jumper Required: No Accompanied by: None Is patient in pain?: No Allergies carbamazepine Allergy (Verified 03/10/21 14:11) unknown colestipol Allergy (Verified 03/10/21 14:11) unknown diltiazem Allergy (Verified 03/10/21 14:11) Unknown levofloxacin [From Levaquin] Adverse Reaction (Verified 03/10/21 14:11) Upset Stomach meperidine HCl [From Demerol] Adverse Reaction (Verified 03/10/21 14:11) Vomiting rosuvastatin calcium [From Crestor] Adverse Reaction (Verified 03/10/21 14:11) Pain in joints Tetracyclines Adverse Reaction (Verified 03/10/21 14:11) Upset Stomach tramadol Adverse Reaction (Verified 03/10/21 14:11) Diarrhea Medications albuterol sulfate 1 puff INHALATION Q6H PRN PRN 12/16/14 [History Confirmed 03/10/21] metformin 1,000 mg PO BID 12/16/14 [History Confirmed 03/10/21] pantoprazole 40 mg PO DAILY tab 10/11/18 [Rx Confirmed 03/10/21] trazodone 150 mg PO QHS tab 10/11/18 [Rx Confirmed 03/10/21] aspirin 81 mg tablet,delayed release 81 mg PO DAILY #90 tab 08/27/19 [Rx Confirmed 03/10/21] pravastatin 80 mg tablet 80 mg PO QHS #90 tab 08/27/19 [Rx Confirmed 03/10/21] zolpidem 10 mg tablet 10 mg PO QHS 08/27/19 [History Confirmed 03/10/21] bupropion HCl 150 mg 24 hr tablet, extended release 150 mg PO QAM 11/30/19 [History Confirmed 03/10/21] nitroglycerin 0.4 mg sublingual tablet 0.4 mg SUBLINGUAL Q5M PRN #25 tab 11/30/19 [Rx Confirmed 03/10/21] metoprolol tartrate 25 mg tablet 25 mg PO BID #180 tab 09/28/20 [Rx Confirmed 03/10/21] clopidogrel 75 mg tablet 75 mg PO DAILY #90 tab 02/24/21 [Rx Confirmed 03/10/21] cholecalciferol (vitamin D3) 125 mcg (5,000 unit) tablet 5,000 unit PO DAILY tab 03/10/21 [History Confirmed 03/10/21] Ejection fraction %: 60 to 64 PFSH Medical History Asthma Atherosclerosis of [place] coronary artery of [place] heart without angina pectoris CAD (coronary artery disease), [place] coronary artery Cigarette nicotine dependence Depression Diabetes Essential hypertension GERD (gastroesophageal reflux disease) History of left heart catheterization (LHC) (~12/23/19) HTN (hypertension) Hyperlipemia, mixed Hypertension Osteoarthritis Pneumonia Sleep apnea Surgical History History of cholecystectomy History of ear surgery History of hysterectomy History of thyroid nodule History of tonsillectomy History of total bilateral knee replacement Hx of sinus surgery S/P angioplasty with stent (~03/04/19) Family History Mother CVA (cerebral vascular accident) Diabetes CAD (coronary artery disease) Brother Myocardial infarction Cancer History of PTCA Diabetes Social History Smoking Status: Current every day smoker alcohol intake: never substance use type: does not use caffeine: Yes Type: coffee Number of servings: 3 what type of physical activity do you participate in: other details: cardiac rehab frequency: 3-4 times per week duration: 15-30 minutes/day seatbelt use: always do you feel safe at home: Yes ROS Const Const: Negative for fatigue, weakness, headache(s), frequent falls, difficulty sleeping or excessive sweating Eyes Eyes: Negative for loss of peripheral vision, transient loss of vision, blurry vision, double vision or tunnel vision ENT ENT: Positive for dizziness; Negative for headache(s), Nosebleed/epistaxis or balance problems Cardio Chest Pain: Yes Frequency: more than once a day Character: tightness Onset: other (randomly) Location: mid sternal and left chest Duration: brief (30-60 seconds) Palpitations: No Edema: None Muscle aches with walking: None Resp Respiratory: Negative for SOB with activity, SOB at rest, SOB orthopnea\SOB lying down, Cough or paroxysmal nocturnal dyspnea GI GI: Negative nausea, vomiting, heartburn or black,tarry stools : Negative for hematuria Musc Musc: Positive for joint pain; Negative for muscle aches/ myalgia, muscle weakness or balance problems Skin Skin: Negative non-healing lesions, rash or unusual bruising Neuro Neuro: Positive for dizziness and lightheadedness; Negative for near syncope, syncope, frequent falls, headache(s), weakness, blurry vision, double vision or lack of coordination Kiet Hematologic/Lymphatic: Negative for easy bleeding or easy bruising Endo Endo: Negative for fatigue, excessive sweating or increased thirst/drinking Psych Psych: Negative for anxiety or depression Allergy Allergy/Immunology: Negative for hives and Negative for rash Cardiology Exam Const Appearance: cooperative, healthy appearing, comfortable and no acute distress Nutritional Appearance: average body habitus and well nourished Orientation: alert, awake and oriented x3 Head Head: normal to inspection Ears: hearing grossly normal bilaterally Nose: external nose normal Face and Sinus: face symmetric Mouth: oral mucosae normal Eyes General: appearance normal, both eyes and all related structures Eyelids: eyelids normal EOM: EOM intact bilaterally Neck Neck: normal visual inspection and no JVD Carotids: normal carotid upstroke Chest Chest inspection: normal inspection of the chest, symmetric chest movement and normal respiratory effort; Negative cough Auscultation: Bilateral: Clear to Auscultation Cardio Rate: regular rate Rhythm: regular rhythm Heart sounds: S1 normal and S2 normal; Negative rub, gallop or murmur GI GI: normal to inspection Neuro General: patient alert, patient awake, patient oriented x3 and CN's II-XI intact bilaterally Skin Skin: no rashes or lesions noted Extremities Pulses: Normal: Right Posterior Tibial Pulse, Left Posterior Tibial Pulse, Right Radial Pulse and Left Radial Pulse Lower Extremity Edema: None: Bilateral Psych Psychological: normal affect Assessment and Plan Assessment and Plan (1) Atherosclerosis of [place] coronary artery of [place] heart without angina pectoris: Status: Chronic Comment: PCI/BEAU of the prox OM3 and LAD 10/19/16; PCI/BEAU to prox LAD 09/10/17; PCI/BEAU to the mid LAD 10/10/18; Successful PTCA/BEAU to proximal OM#2,Successful PTCA/BEAU proximal OM#4 03/04/2019 Plan - Lucian Bailey [employer], [employer]: Patient's stress test on 02/23/2020 was considered to be abnormal. She continues to note chest discomfort. Given her abnormal stress test, symptoms, risk factors including diabetes, and previous coronary artery disease including stenting, she will proceed with heart catheterization. Based on results, further recommendation be made. (2) S/P angioplasty with stent: Status: Chronic Comment: PCI/BEAU of the prox OM3 and LAD 10/19/16; PCI/BEAU to prox LAD 09/10/17; PCI/BEAU to the mid LAD 10/10/18; PTCA/BEAU of prox OM 2 and PTCA/BEAU of prox OM4 03/04/19 Plan - Lucian Bailey NP, [employer]: She will continue current medical therapy, which includes aspirin, Plavix, metoprolol, and pravastatin. She is not on STEVE inhibitor or ARB at this time on account of preserved ejection fraction and controlled blood pressure. We can consider such medication based on long-term progress. (3) Essential hypertension: Status: Chronic Plan - Lucian Bailey [employer], [employer]: Patient's blood pressure is well-controlled. We will continue to monitor. We will not make any medication regimen changes. (4) Hyperlipemia, mixed: Status: Chronic Plan - Lucian Bailey [employer], [employer]: She will continue risk factor and lifestyle modification. She will continue pravastatin 80 mg p.o. nightly. Plan Details Additional Comments: If patient requires stenting, we will schedule sooner follow-up appointment as well as consider cardiac rehab. Thank you for allowing us to participate in the patients plan of care, if you have any questions please do not hesitate to call. This note was generated using a voice recognition system and there may be incorrect words, spelling or punctuation that were not noted when reviewing the office note prior to saving. Follow Up: Keep as is (PFM) COVID (Procedure Consent) Procedure Criteria Procedure Criteria: Yes Elective The surgeon/proceduralist and patient have discussed in detail the risk of exposure to and/or potential harm posed by the COVID-19 virus with having a surgery/procedure at this time versus the risk of delaying the surgery/procedure. It is not possible to know either the risk of delaying the surgery or procedure or chance of getting an infection with perfect accuracy, but a joint decision was made between the patient and the surgeon/proceduralist to proceed at this time with the scheduled surgery/procedure as indicated on the consent form. Coding Level of Care Code Off vis,est,level 3 Diagnoses Atherosclerosis of [place] coronary artery of [place] heart without angina pectoris I25.10 S/P angioplasty with stent Z95.9 Essential hypertension I10 Hyperlipemia, mixed E78.2 Coding Level of Care Code Off vis,est,level 3 Diagnoses Atherosclerosis of [place] coronary artery of [place] heart without angina pectoris I25.10 S/P angioplasty with stent Z95.9 Essential hypertension I10 Hyperlipemia, mixed E78.2 Supplemental Info Supplemental Information Transthoracic echocardiogram: 10-02-16 Interpretation Summary Left ventricular systolic function is normal. The estimated ejection fraction is 60 %. The left atrium is mildly enlarged. Trivial mitral valve insufficiency. Trivial tricuspid valve insufficiency. Mild focal aortic valve calcification. Bubble contrast study negative for right to left interatrial shunt. Stress Test Report Date: 02-22-2021 Procedure: Pharmacologic stress nuclear imaging study Indications: Chest pain; CAD; PCI Consent: Per the patient Procedure: The patient underwent pharmacologic (Regadenoson 0.4mg ) evaluation with a peak heart rate of 94 beats per minute (59%predicted maximal heart rate) and a peak blood pressure of 142/70 mmHg. The baseline ECG demonstrated sinus rhythm. The peak pharmacologic ECG demonstrated no obvious ECG changes. There were no cardiac dysrhythmias pretest, during pharmacologic infusion, or recovery. There was no complaint of chest discomfort during pharmacologic infusion or recovery. The examination was discontinued secondary to completion of protocol. Impression: 1. Pharmacologic (Regadenoson) evaluation 2. Peak pharmacologic ECG with no obvious ECG changes. 3. There were no cardiac dysrhythmias pretest, during pharmacologic infusion, or recovery. 4. Nuclear images pending Myocardial perfusion imaging study: Technique: The patient was injected with 11.7 millicuries of technetium 99m Cardiolite and subsequently rest SPECT Cardiolite nuclear imaging was obtained in the horizontal long, vertical long, and short axis views. The patient underwent pharmacologic (Regadenoson) evaluation with a peak heart rate of 94 beats per minute (59% percent predicted maximal heart rate) and a peak blood pressure of 142/70 mmHg. The patient was injected with 34.8 millicuries of technetium 99m Cardiolite and subsequently stress SPECT Cardiolite nuclear imaging was obtained in the horizontal long, vertical long, and short axis views. A gated Cardiolite study at peak stress was obtained. Interpretation: Rest and stress SPECT Cardiolite nuclear imaging status post realignment, normalization, and attenuation correction demonstrate at rest the appearance of diminished myocardial perfusion/tracer uptake in portions of the mid anterior segments and status post stress the appearance of diminished myocardial perfusion/tracer uptake in portions of the basal to mid anterior segments. There is diminished end systolic thickening and brightening. The gated Cardiolite study demonstrates diminished myocardial thickening and inward wall motion. The reported LVEF is 41%. Impression: 1. Rest and stress SPECT. Nuclear imaging demonstrate myocardial perfusion changes appearing compatible with an area of previous myocardial injury/infarction involving portions of the mid anterior segments with post-rest myocardial perfusion changes suggestive of an element of taya-infarct related myocardial ischemia. 2. The gated Cardiolite study reports an LVEF of 41%. Cardiac catheterization: 12/23/2019 CONCLUSIONS Elevated Left Ventricular End Diastolic Pressure Segmented LV systolic dysfunction- Mild LVEF: by LV gram 60 % [place] Multivessel CAD RECOMMENDATIONS Risk factor modification Medical therapy CORONARY ANGIOGRAPHY DOMINANCE: Left Dominant LEFT HEART ASSESSMENT Left Ventricular Ejection Fraction: by LV Gram 60 % Inferior Mid Hypokinesis Elevated Left Ventricular End Diastolic Pressure LVEDP: 18 mmHg LEFT MAIN: Angiographically normal LEFT ANTERIOR DESCENDING ARTERY: PROX LAD: Previously placed stent is patent MID LAD: Previously placed stent is patent DIAGONAL 1: Proximal - Mild luminal irregularities (small caliber vessel) CIRCUMFLEX ARTERY: PROX CIRC: Mild luminal irregularities MID CIRC: Mild luminal irregularities OM 2: Mid - Previously placed stent is patent OM 3: Proximal - Previously placed stent is patent RIGHT CORONARY ARTERY: small nondominant vessel: diffuse severe stenosis AORTIC ROOT: Angiographically normal PCI: 10-10-18 LAD. 2.5x18 Resolute Drug Eluting stent Cardiac catheterization: 03/04/2019 DOMINANCE: Left Dominant LEFT HEART ASSESSMENT Left Ventricular Ejection Fraction: by LV Gram 55 % Inferior Mid Hypokinesis Elevated Left Ventricular End Diastolic Pressure LVEDP: 16 mmHg LEFT MAIN: Angiographically normal LEFT ANTERIOR DESCENDING ARTERY: PROX LAD: Previously placed stent is patent MID LAD: Previously placed stent is patent DIAGONAL 1: Proximal - Mild luminal irregularities CIRCUMFLEX ARTERY: Mild luminal irregularities OM 1: Proximal - Mild luminal irregularities OM 2: Proximal - eccentric: 75 % Stenosis, Mid - diffuse: irregular: 50 % Stenosis OM 3: Proximal - pre stent: 75 % Stenosis, Proximal - Previously placed stent is patent RIGHT CORONARY ARTERY: small nondominant: diffuse severe stenosis VALVE FINDINGS: Normal Aortic Valve function Normal Mitral Valve function AORTIC ROOT: Angiographically normal PCI 03/04/19: Successful PTCA/BEAU to proximal OM#2 with a 3.0 x 38 Promus Synergy, post dilated throughout with a 3.0 x 12 NC Balloon; 75%-->0%, no dissection. Pt had similar chest pain symptoms with stent deployment. Successful PTCA/BEAU proximal OM#4 with a 2.25 x 12 Promus Synergy, 75%-->0%, no dissection. Cardiac catheterization: 12/23/2019 CONCLUSIONS Elevated Left Ventricular End Diastolic Pressure Segmented LV systolic dysfunction- Mild LVEF: by LV gram 60 % [place] Multivessel CAD RECOMMENDATIONS Risk factor modification Medical therapy CORONARY ANGIOGRAPHY DOMINANCE: Left Dominant LEFT HEART ASSESSMENT Left Ventricular Ejection Fraction: by LV Gram 60 % Inferior Mid Hypokinesis Elevated Left Ventricular End Diastolic Pressure LVEDP: 18 mmHg LEFT MAIN: Angiographically normal LEFT ANTERIOR DESCENDING ARTERY: PROX LAD: Previously placed stent is patent MID LAD: Previously placed stent is patent DIAGONAL 1: Proximal - Mild luminal irregularities (small caliber vessel) CIRCUMFLEX ARTERY: PROX CIRC: Mild luminal irregularities MID CIRC: Mild luminal irregularities OM 2: Mid - Previously placed stent is patent OM 3: Proximal - Previously placed stent is patent RIGHT CORONARY ARTERY: small nondominant vessel: diffuse severe stenosis AORTIC ROOT: Angiographically normal Labs: LDL Cholesterol 65 mg/dL (0-130) HDL Cholesterol 35 mg/dL (40-) L Triglycerides 322 mg/dL (-199) H VLDL Cholesterol 64 mg/dL (5-40) H Diagnostics: Electrocardiogram Echocardiogram Stress Test NM Stress Test Cardiac Catheterization Chest X-Ray Pulmonary: Pulmonary Function Test 03/10/21 1443<Electronically signed by Lucian SHAIKHC>Date Lucian Bailey NP, NP-C Cosigner Signature:Date (if applicable) CC: Dr. Angelique Tejada MD ~ I have re-examined the patient. There are no clinical changes since date of exam.
--- NOTE | 2021-03-21 11:04 | CL.D_ITS ---
Patient Name: MICKI PACK Study Date: 03/21/2021 Performing: Isac Davila MD Ht: 64.17 inches 163 cm : 1960 Wt: 194.01 lbs 88 kg Age: 60 Gender: female BSA: 1.93 PROCEDURE(S) PERFORMED KN18-SFR/COR/LV CLINICAL PROFILE AND INDICATIONS Indications: Suspected CAD Heart Failure: None Stress/Imaging Date: 02/22/2021tress Test with SPECT MPI: Positive Intermediate Risk Angina Classification Anginal Classification w/in 2 Weeks: CCS III CAD Presentations: Other: chest pain / fatigue CONCLUSIONS Elevated Left Ventricular End Diastolic Pressure Normal LV size, wall motion,and systolic function LVEF: by LV gram 60 % [place] Multivessel CAD LAD stent: proximal: patent LAD stent: mid: patent LCX OM2: stent: patent LCX OM3: stent: patent RECOMMENDATIONS Risk factor modification Medical therapy DESCRIPTION OF PROCEDURE The patient arrived to the procedure lab. The risks and benefits of the procedure as well as a full d escription of our services here and current unavailability of surgical backup were fully explained to the patient and/or their significant other prior to the catheterization. The Timeout was completed, verifying the correct patient and procedure. The patient's procedural site was prepped and draped in the usual fashion. Local anesthetic was given subcutaneously to right radial region with Lidocaine 2% . Using a modified Seldinger technique, arterial access was obtained via the right radial artery, a 6 Fr sheath was inserted. Left Coronary Artery selective angiography was performed in multiple views u sing a 5 Fr. 4.0 [place] catheter. Right Coronary Artery selective angiography was then performed in mu ltiple views using a 5 Fr. 4.0 [place] catheter. Left Ventriculography was performed in HASKINS projection using a 5 Fr. Pigtail catheter. LV to AO pullback pressures were then recorded.The arterial sheath was pulled and a TR Band was applied for hemostasis CORONARY ANGIOGRAPHY DOMINANCE: Left Dominant LEFT HEART ASSESSMENT Left Ventricular Ejection Fraction: by LV Gram 60 % Normal LV wall motion Elevated Left Ventricular End Diastolic Pressure LVEDP: 26 mmHg LEFT MAIN: Angiographically normal LEFT ANTERIOR DESCENDING ARTERY: PROX LAD: Previously placed stent is patent MID LAD: Previously placed stent is patent, Mild luminal irregularities DISTAL LAD: Mild luminal irregularities DIAGONAL 1: Proximal - Mild luminal irregularities (small caliber vessel) CIRCUMFLEX ARTERY: PROX CIRC: Mild luminal irregularities MID CIRC: diffuse: eccentric: 10 - 25 % Stenosis OM 1: Proximal - Mild luminal irregularities OM 2: Proximal - Previously placed stent is patent OM 3: Proximal - Previously placed stent is patent RIGHT CORONARY ARTERY: small nondominant vessel: diffuse severe stenosis AORTIC ROOT: Angiographically normal COMPLICATIONS No Complications PROCEDURE MEDICATIONS Versed 1 mg IV Dilaudid 50 mg IV Oxygen: 2 L/min via nasal cannula Heparin given IA 03/21/2021 10:20:23 Verapamil 2.5mg, Ntg 100mcgs, 3000 units of Heparin given IA 03/21/2021 10:20:23 SUMMARY OF HEMODYNAMIC DATA Time AIR REST ECG 08:11:46 AO 137/58 (87) SA 10:22:05 LV 152/-4, 26 10:29:01 LV 155/-5, 26 10:29:08 LV 156/-4, 26 10:29:57 LV 157/-1, 27 10:30:04 LVp 152/-4, 25 10:30:08 AOp 152/65 (99) 10:30:13 Signed By Isac Davila MD On 03/21/2021 11:03:56 AM Isac Davila MD
== END 2021-03-21 13:15 | disposition home or self-care (01) ==
LOC: CLSP 07:51
PROVIDERS: PCP Internal Medicine; Referring Provider Internal Medicine; Visit Provider Internal Medicine Cardiovascular Disease
DX: I25.10 Atherosclerotic heart disease of native coronary artery without angina pectoris (principal); E11.9 Type 2 diabetes mellitus without complications; I10 Essential (primary) hypertension; E78.2 Mixed hyperlipidemia; G47.33 Obstructive sleep apnea (adult) (pediatric); R42 Dizziness and giddiness; J45.909 Unspecified asthma, uncomplicated; M19.90 Unspecified osteoarthritis, unspecified site; K21.9 Gastro-esophageal reflux disease without esophagitis; F32.9 Major depressive disorder, single episode, unspecified; F17.210 Nicotine dependence, cigarettes, uncomplicated; Z79.84 Long term (current) use of oral hypoglycemic drugs; Z79.82 Long term (current) use of aspirin; Z79.02 Long term (current) use of antithrombotics/antiplatelets; Z79.899 Other long term (current) drug therapy; Z95.5 Presence of coronary angioplasty implant and graft; Z96.653 Presence of artificial knee joint, bilateral
CPT/HCPCS: 36415; 71046; 80048; 85027; 85610; 85730; 93458; 99152; 99153; J7040; Q9967; C1769; C1894

== ENCOUNTER → 2021-03-23 12:37 | Outpatient (CLI) | payer OTHER, SELFPAY ==
[2018-10-10 13:42] VITALS: BMI 32.9
[2021-03-17 14:11] VITALS: BMI 33.1
[2021-03-23 13:43] LABS: Anion Gap 5 (5-15); BUN 9 mg/dL (7-18); BUN/Creat Ratio 12.1 RATIO (10-20); Calcium,Total 9.2 mg/dL (8.5-10.1); Chloride 106 mmol/L (98-107); Creatinine, Serum 0.75 mg/dL (0.55-1.02); EST Glomerular Filtration Rate 84 mL/min (>60); Est Glom Filt Rate - Afr Amer 101 mL/min (>60); Glucose 230 mg/dL (74-106); Potassium 4.2 mmol/L (3.5-5.1); Sodium Level 139 mmol/L (136-145)
== END ==
PROVIDERS: PCP Internal Medicine; Referring Provider Internal Medicine Cardiovascular Disease; Visit Provider Internal Medicine Cardiovascular Disease
DX: I10 Essential (primary) hypertension (principal); E78.2 Mixed hyperlipidemia; I25.10 Atherosclerotic heart disease of native coronary artery without angina pectoris; Z95.9 Presence of cardiac and vascular implant and graft, unspecified
CPT/HCPCS: 36415; 80048

== ENCOUNTER 2021-11-22 07:56 | Outpatient (CLI) | payer OTHER, SELFPAY ==
[2018-10-10 13:42] VITALS: BMI 32.9
--- NOTE | 2021-11-22 08:18 | CDU_ITS ---
Reason For Study: Bruit Rt. Velocities/BP Lt. Velocities/BP Prox CCA 66/11 cm/sec. Prox CCA 70/19 cm/sec. Mid CCA 69/13 cm/sec. Mid CCA 53/18 cm/sec. Dist CCA 51/12 cm/sec. Dist CCA 62/20 cm/sec. Prox ICA 56/14 cm/sec. Prox ICA 61/18 cm/sec. Mid ICA 83/27 cm/sec. Mid ICA 91/24 cm/sec. Dist ICA 102/27 cm/sec. Dist ICA 83/25 cm/sec. Rt. ICA/CCA = 1.5. Lt. ICA/CCA = 1.7. Prox ECA 83/11 cm/sec. Prox ECA 429/37 cm/sec. Rt. Vert. 60/13 cm/sec. Lt. Vert. 66/15 cm/sec. Right Extracranial There is intimal thickening but no significant atherosclerotic plaque noted in the right common carotid artery. There is intimal thickening but no significant atherosclerotic plaque noted in the right internal carotid artery. There is no significant atherosclerotic plaque noted in the right external carotid artery. Antegrade flow is noted in the right vertebral artery. Left Extracranial There is intimal thickening but no significant atherosclerotic plaque noted in the left common carotid artery. There is intimal thickening but no significant atherosclerotic plaque noted in the left internal carotid artery. The left internal carotid artery is very tortuous. There is heterogeneous, smooth atherosclerotic plaque noted in the left external carotid artery. Antegrade flow is noted in the left vertebral artery. Procedure Carotid Duplex 11404. This is a Carotid Duplex examination using B-mode, color flow and specral Doppler. Exam performed in department. VL/Carotid Duplex Ultrasound Interpretation Summary Intimal thickening of the proximal right internal carotid artery with less than 50% stenosis Less than 50% stenosis right external carotid artery Intimal thickening and tortuosity of the left internal carotid artery with less than 50% stenosis Greater than 50% stenosis left external carotid artery Patent and antegrade vertebral arteries bilaterally No change from the previous examination of January 13, 2021 Ordering Physician: Isac Davila Referring Physician: Isac Davila Performed By: Hermila Bailey, KRYSTIAN, RVT
== END 2021-11-22 23:59 | disposition home or self-care (01) ==
LOC: CVS 07:57
PROVIDERS: PCP Internal Medicine; Referring Provider Internal Medicine Cardiovascular Disease; Visit Provider Internal Medicine Cardiovascular Disease
DX: R09.89 Other specified symptoms and signs involving the circulatory and respiratory systems (principal)
CPT/HCPCS: 93880

== ENCOUNTER 2022-02-27 00:42 | Inpatient (IN) | payer OTHER, MEDICARE, SELFPAY ==
[2018-10-10 13:42] VITALS: BMI 32.9
[2022-02-27] VITALS (15 sets, daily range): BP systolic 107–151; BP diastolic 52–76; PULSE 71–118; RESP 12–22; TEMP 36.5–37.8; O2SAT 94–97; BMI 33.5; BMI 32.1
--- NOTE | 2022-02-27 01:07 | RAD_ITS ---
EXAM: XR RIGHT KNEE, 1 OR 2 VIEWS CLINICAL INDICATION: pain TECHNIQUE: Frontal and/or lateral views of the right knee. This report was created using [employer] report generation technology. COMPARISON: None. FINDINGS: BONES/JOINTS: Right knee arthroplasty. No acute fracture. No subluxation. Normal alignment. No sclerotic or destructive changes observed. SOFT TISSUES: Unremarkable. No soft tissue swelling or gas. No radiopaque foreign body. RAD/Knee 1 or 2 Views IMPRESSION: No acute findings in the right knee. Right knee arthroplasty. Electronically Signed: Daniel Giraldo MD at 2:24 EDT ,
--- NOTE | 2022-02-27 01:08 | EDS_ITS ---
HPI History of Present Illness Chief Complaint: Lower Extremity Injury Informant: patient and spouse/S.O. Narrative Narrative: Patient is a 61-year-old female with history of coronary artery disease, diabetes mellitus and bilateral total knee arthroplasty presenting with bilateral knee pain. Patient states she woke up this morning she just could not stand up because her knees were swollen and painful. She has not really been able to get out of bed or do anything today because of this. She is just been feeling poorly. She has not ate or drank much today. She has not urinated since earlier this morning. She has had knee pain in the past since her surger ies but nothing to this severity. She denies any associated numbness, incontinence, nausea or vomiting. She denies any body aches. Unaware of having any emergency room. Her first knee was done at [facility] and her most recent knee was done with Dr. Durham. No other complaints at this time. Patient tried taking a lft over oxycodone at home with no relief of her symptoms. [facility] Medical History Asthma Atherosclerosis of [place] coronary artery of [place] heart without angina pectoris Bruit of left carotid artery CAD (coronary artery disease), [place] coronary artery Cigarette nicotine dependence Depression Diabetes Essential hypertension GERD (gastroesophageal reflux disease) Hyperlipemia, mixed Hypertension Osteoarthritis Pneumonia Presence of stent in coronary artery (~03/04/19) Sleep apnea Home Medications albuterol sulfate 1 puff INHALATION Q6H PRN PRN 12/16/14 [History Last Taken 08/14/16] metformin 1,000 mg PO BID 12/16/14 [History Last Taken 03/20/21] pantoprazole 40 mg PO DAILY tab 10/11/18 [Rx Last Taken Unknown] aspirin 81 mg tablet,delayed release 81 mg PO DAILY #90 tab 08/27/19 [Rx Last Taken 03/21/21] pravastatin 80 mg tablet 80 mg PO QHS #90 tab 08/27/19 [Rx Last Taken Unknown] zolpidem 10 mg tablet 10 mg PO QHS 08/27/19 [History Last Taken Unknown] bupropion HCl 150 mg 24 hr tablet, extended release 150 mg PO QAM 11/30/19 [History Last Taken 12/23/19] nitroglycerin 0.4 mg sublingual tablet 0.4 mg SUBLINGUAL Q5M PRN #25 tab 11/30/19 [Rx Last Taken Unknown] metoprolol tartrate 25 mg tablet 25 mg PO BID #180 tab 09/28/20 [Rx Last Taken 03/21/21] cholecalciferol (vitamin D3) 125 mcg (5,000 unit) tablet 5,000 unit PO DAILY tab 03/10/21 [History Last Taken Unknown] clopidogrel 75 mg tablet 75 mg PO DAILY #90 tab 06/09/21 [Rx Last Taken Unknown] Allergy/AdvReac Type Severity Reaction Status Date / Time carbamazepine Allergy unknown Verified 11/06/21 14:28 colestipol Allergy unknown Verified 11/06/21 14:28 diltiazem Allergy Unknown Verified 11/06/21 14:28 levofloxacin [From Levaquin] AdvReac Upset Verified 11/06/21 14:28 Stomach meperidine HCl [From Demerol] AdvReac Vomiting Verified 11/06/21 14:28 rosuvastatin calcium AdvReac Pain in Verified 11/06/21 14:28 [From Crestor] joints Tetracyclines AdvReac Upset Verified 11/06/21 14:28 Stomach tramadol AdvReac Diarrhea Verified 11/06/21 14:28 Family History Mother CVA (cerebral vascular accident) Diabetes CAD (coronary artery disease) Brother Myocardial infarction Cancer History of PTCA Diabetes Surgical History History of cholecystectomy History of ear surgery History of hysterectomy History of left heart catheterization (LHC) (~03/21/21) History of thyroid nodule History of tonsillectomy History of total bilateral knee replacement Hx of sinus surgery Presence of coronary angioplasty implant and graft (~03/04/19) Social History household members: spouse housing: other Smoking Status: Current every day smoker tobacco type: cigarettes alcohol intake: never substance use type: does not use caffeine: Yes Type: coffee Number of servings: 3 what type of physical activity do you participate in: other details: cardiac rehab frequency: 3-4 times per week duration: 15-30 minutes/day seatbelt use: always do you feel safe at home: Yes ROS ROS ED Constitutional Constitutional ED: Denies chills or fever(s) Eyes Eyes: Denies change in vision ENT ENT ED: Denies rhinorrhea or sore throat Cardiovascular Cardiovascular: Denies chest pain Respiratory/Chest Respiratory/Chest: Denies cough or dyspnea Gastrointestinal Gastrointestinal: Denies abdominal pain, diarrhea, nausea or vomiting Genitourinary Genitourinary ED: Reports other Details: decreased urination ; Denies dysuria or hematuria Musculoskeletal Musculoskeletal: Reports other Details: billateral knee pain ; Denies myalgias Integumentary Denies Abrasions or rash Neurologic Neurologic: Denies headache(s), paresthesias or weakness Psychiatric Psychiatric: Denies depression EXAM Physical Exam Const Vital Signs: 02/27/22 00:44 02/27/22 01:02 02/27/22 01:05 Temperature 99.7 F H 100.0 F H 100.0 F H Temperature Source Oral Oral Oral Pulse Rate 118 H 112 H 110 H Respiratory Rate 22 H 20 H 18 Blood Pressure 138/71 H 151/76 H 151/76 H Blood Pressure Mean 93 101 101 Pulse Ox 95 97 97 Oxygen Delivery Method Room Air Room Air Room Air 02/27/22 03:40 02/27/22 03:41 Temperature 99.8 F H 99.8 F H Temperature Source Oral Oral Pulse Rate 93 93 Respiratory Rate 17 17 Blood Pressure 124/63 H 124/63 H Blood Pressure Mean 83 83 Pulse Ox 94 94 Oxygen Delivery Method Room Air Room Air Positive well nourished and well developed General Appearance ED: well developed and NAD HEENT Reports dry mucous membranes Negative for tenderness Mouth ED: Yes dry mucous membranes Mouth: dry mucous membranes Eyes PERRL and EOMs intact bilaterally Neck supple Neck Narrative: Normal range of motion, no rigidity Chest Wall inspection of chest normal Resp normal respiratory effort and clear to auscultation bilaterally Cardio regular rhythm and no murmurs Rate: tachycardic GI normal to inspection, nondistended, normoactive bowel sounds, non-tender and non-distended Palpation: soft Extremity Extremity Narrative: Patient has decreased range of motion of bilateral knees secondary to pain. Bilateral knee effusions present, left greater than right. Diffuse tenderness to with even light palpation and with short arc range of motion. General Extremety ED: Yes tenderness Neuro oriented x3 and CN's II-XII intact bilaterally Sensorium / Orientation: alert Motor Exam: general weakness Psych mental status grossly normal Skin no rashes or lesions noted and no wounds MDM MDM MDM Narrative Medical decision making narrative: Patient is evaluated for inability to ambulate which she contributes to her bilateral knee pain for 1 day. Patient has generalized weakness and overall is ill-appearing. Vital signs are remarkable for tachycardia and low-grade temperature. Patient reports that she did have COVID about a month ago. Given her bilateral knee pain with history of arthroplasty as well as questionable infectious symptoms septic work- up was initiated. Patient has a leukocytosis of 14.8, mild hyponatremia and hypokalemia as well as a significantly elevated CRP and a mildly elevated ESR. Her flu and COVID rapid test come back positive. Given that she reportedly had COVID 1 month ago I have a low suspicion for acute COVID infection and suspect it is just still positive from her recent infection. She does not have any acute respiratory symptoms. X-ray of the knees aer normal. She does not have any overlying erythema of the knees. While differential does include a septic arthritis/periprosthetic joint infection given her positive viral panel more than likely her symptoms are from the viral infection. Patient is given IV fluids, morphine and Tylenol in the emergency room. She will be admitted due to her debility and inability to ambulate from her knee pain as well as further monitoring of her infectious status. Cultures are pending. Patient agreeable with this plan of care. Will defer antibiotics as right now I suspect her sepsis is most likely secondary to influenza and not bacterial. Lab Data Attestation: I reviewed the patient's lab results. Labs: Laboratory Results - last 24 hr 02/27/22 02/27/22 02/27/22 00:35 00:35 01:30 WBC 14.8 H RBC 4.38 Hgb 12.0 Hct 37.3 MCV 85.2 MCH 27.4 MCHC 32.2 RDW Std Deviation 46.1 H RDW Coeff of Jossy 14.8 H Plt Count 254 MPV 10.3 Immature Gran % (Auto) 0.600 Neut % (Auto) 83.3 H Lymph % (Auto) 6.6 L Patrick % (Auto) 9.2 Eos % (Auto) 0.1 Baso % (Auto) 0.2 Absolute Neuts (auto) 12.3 H Absolute Lymphs (auto) 0.97 Nucleated RBC % 0 ESR 33 H Sodium 135 L Potassium 3.2 L Chloride 100 Carbon Dioxide 22.0 Anion Gap 13 BUN 16 Creatinine 0.85 Estim Creat Clear Calc 58.50 Est GFR (MDRD) Af Amer 87 Est GFR (MDRD) Non-Af 72 BUN/Creatinine Ratio 18.8 Glucose 198 H Calcium 8.9 Total Bilirubin 0.70 AST 3 L ALT 15 Alkaline Phosphatase 71 C-React Prot High Sens > 190.00 H Total Protein 7.8 Albumin 3.6 Globulin 4.2 Albumin/Globulin Ratio 0.9 Urine Color Yellow Urine Clarity Clear Urine pH 5.0 Ur Specific Russell 1.020 Urine Protein 30 H Urine Glucose (UA) 100 H Urine Ketones 15 H Urine Occult Blood Negative Urine Nitrite Negative Urine Bilirubin Negative Urine Urobilinogen 4 H Ur Leukocyte Esterase 25 H Urine RBC 0 SEEN Urine WBC 0-5 SEEN Ur Squamous Epith Cells 0 SEEN Urine Bacteria 0 SEEN Urine Mucus 0 SEEN Radiography Chest X-Ray - ED: 1 View, Read by ED Physician, Read by Radiologist and No Acute Disease Diagnostic Testing: Clinical Impression(s) from Imaging Studies Knee X-Ray 02/27/22 01:07 IMPRESSION: No acute findings in the right knee. Right knee arthroplasty. Electronically Signed: Daniel Giraldo MD at 2:24 EDT Reading Location ID and State: [facility] / [place] Tel , Service support , Knee X-Ray 02/27/22 01:09 IMPRESSION: No acute findings in the left knee. Left knee arthroplasty. Electronically Signed: Daniel Giraldo MD at 2:24 EDT Reading Location ID and State: [facility] / [place] Tel , Service support , Chest X-Ray 02/27/22 02:23 IMPRESSION: No radiographic evidence of acute cardiopulmonary disease. Electronically Signed: Daniel Giraldo MD at 2:48 EDT Reading Location ID and State: [facility] / [place] Tel , Service support , Discharge Plan Dx/Rx/DC Orders Clinical Impression: Knee pain, Influenza A, Debility, Lab test positive for detection of COVID-19 virus Disposition Disposition: Acute Care [facility] Discharge Date/Time: 02/27/22 04:34
--- NOTE | 2022-02-27 01:09 | RAD_ITS ---
EXAM: XR LEFT KNEE, 1 OR 2 VIEWS CLINICAL INDICATION: PAIN TECHNIQUE: Frontal and/or lateral views of the left knee. This report was created using [email or web address] report generation technology. COMPARISON: None. FINDINGS: BONES/JOINTS: Left knee arthroplasty. No acute fracture. No subluxation. Normal alignment. No sclerotic or destructive changes observed. SOFT TISSUES: Unremarkable. No soft tissue swelling or gas. No radiopaque foreign body. RAD/Knee 1 or 2 Views IMPRESSION: No acute findings in the left knee. Left knee arthroplasty. Electronically Signed: Daniel Giraldo MD at 2:24 EDT ,
[2022-02-27] MEDS: 0.9% Normal Saline 1,000 ML 999 ML IV (01:13)
[2022-02-27] MEDS: Morphine 4 MG/ML Syringe IV (01:15)
[2022-02-27] MEDS: Ondansetron 4 MG/2 ML Vial IV (01:16)
[2022-02-27 01:25] LABS: Absolute Lymphocyte Count 0.97 X10^3/uL (0.83-4.51); Absolute Neutrophil Count 12.3 X10^3/uL (2.0-7.7); Basophil# 0.03 X10^3/uL; Basophil% 0.2 % (0-1); Eosinophil# 0.01 X10^3/uL; Eosinophils% 0.1 % (0-5); Hematocrit 37.3 % (37-47); Lymphocyte # 0.97 X10^3/ul (0.83-4.51); Lymphocyte % 6.6 % (19-41); Mean Corp Hgb Conc 32.2 g/dL (32-36); Mean Corpuscular Hgb 27.4 pg (27.0-32.0); Mean Corpuscular Volume 85.2 fL (81-99); Mean Platelet Vol. 10.3 fl (6.2-12.0); Monocyte# 1.36 X10^3/uL; Monocyte% 9.2 % (0-10); NRBC Flagged by Analyzer 0 % (0-5); Neutrophil # 12.34 X10^3/uL (2.7-7.7); Neutrophil % 83.3 % (47-70); Platelet Count 254 K/mm3 (150-450); RBC Distribution Width CV 14.8 % (11.6-14.6); RBC Distribution Width SD 46.1 fl (35.1-43.9); Red Blood Count 4.38 M/mm3 (4.2-5.4); White Blood Count 14.8 K/mm3 (4.4-11.0)
[2022-02-27 01:37] LABS: Bacteria 0 SEEN /hpf (None Seen); Mucous, Urine 0 SEEN /hpf (<or=2+); Red Blood Cells-Urine 0 SEEN /hpf (0-5); Squamous Epithelial Cells - UA 0 SEEN /hpf (5-10)
[2022-02-27 01:48] LABS: Color, Urine Yellow (Yellow); Glucose, Dipstick 100 mg/dl (Normal); Ketone-Dipstick 15 mg/dl (Negative); Leukocyte Esterase-Dipstick 25 /ul (Negative); Nitrite-Dipstick Negative (Negative); Occult Blood-Urine Negative /ul (Negative); Protein-Dipstick 30 mg/dl (Negative); Urine Bilirubin Dipstick Negative (Negative); Urine Clarity Clear (Clear); Urine Urobilinogen 4 mg/dl (Normal)
[2022-02-27 02:04] LABS: Erythrocyte Sedimentation Rate 33 mm/hr (0-30)
[2022-02-27 02:17] LABS: White Blood Cells 0-5 SEEN /hpf (0-5)
--- NOTE | 2022-02-27 02:23 | RAD_ITS ---
EXAM: XR CHEST, 1 VIEW CLINICAL INDICATION: flu TECHNIQUE: Frontal view of the chest. This report was created using [employer] report generation technology. COMPARISON: 03/06/2021 FINDINGS: LUNGS AND PLEURAL SPACES: Unremarkable. No consolidation or edema. No pneumothorax. No effusion. HEART: Unremarkable. Cardiac silhouette not enlarged. MEDIASTINUM: Central airways and mediastinal contour are unremarkable. BONES/JOINTS: Unremarkable. SOFT TISSUES: Unremarkable. RAD/Chest 1 View (Portable) IMPRESSION: No radiographic evidence of acute cardiopulmonary disease. Electronically Signed: Daniel Giraldo MD at 2:48 EDT ,
[2022-02-27 02:28] LABS: ALB/GLOB Ratio 0.9 RATIO (0.9-2.4); AST(SGOT) 3 U/L (15-37); Alanine Aminotransfer ALT/SGPT 15 U/L (13-56); Albumin, Serum 3.6 g/dL (3.2-5.0); Alkaline Phosphatase 71 U/L (45-117); Anion Gap 13 (5-15); BUN 16 mg/dL (7-18); BUN/Creat Ratio 18.8 RATIO (10-20); CRP, High Sensitivity Cardiac > 190.00 mg/L; Calcium,Total 8.9 mg/dL (8.5-10.1); Chloride 100 mmol/L (98-107); Creatinine, Serum 0.85 mg/dL (0.55-1.02); EST Glomerular Filtration Rate 72 mL/min (>60); Est Glom Filt Rate - Afr Amer 87 mL/min (>60); Globulin 4.2 g/dL (2.2-4.2); Glucose 198 mg/dL (74-106); Potassium 3.2 mmol/L (3.5-5.1); Protein, Total 7.8 g/dL (6.4-8.2); Sodium Level 135 mmol/L (136-145)
[2022-02-27] MEDS: Acetaminophen 325 MG Tablet 650 MG PO ×2 (03:42→11:50)
--- NOTE | 2022-02-27 03:54 | HP.PCM_ITS ---
HPI - General General Date of Admission: 02/27/22 HPI Narrative MICKI PACK, is a 61 F who presents to the emergency room due to chief complaint of bilateral knee pain. Patient states when she woke up this morning she was unable to stand and walk on her legs due to her pain. She noticed markedly increased swelling both knees. She denies any chest pain, shortness of breath, fever or chills at present time. Patient has been vaccinated and boosted for COVID 19 and did receive her influenza vaccine in the fall however she tested positive for both COVID 19 and influenza here by rapid assay. Patient does not have any respiratory symptoms at present time. We will continue isolation procedures as a precaution and perhaps retest the patient as these are likely to be false positives. [facility] Medical History Asthma Atherosclerosis of [place] coronary artery of [place] heart without angina pectoris Bruit of left carotid artery CAD (coronary artery disease), [place] coronary artery Cigarette nicotine dependence Depression Diabetes Essential hypertension GERD (gastroesophageal reflux disease) Hyperlipemia, mixed Hypertension Osteoarthritis Pneumonia Presence of stent in coronary artery (~03/04/19) Sleep apnea Home Medications albuterol sulfate 1 puff INHALATION Q6H PRN PRN 12/16/14 [History Last Taken 08/14/16] metformin 1,000 mg PO BID 12/16/14 [History Last Taken 03/20/21] pantoprazole 40 mg PO DAILY tab 10/11/18 [Rx Last Taken Unknown] aspirin 81 mg tablet,delayed release 81 mg PO DAILY #90 tab 08/27/19 [Rx Last Ta tim 03/21/21] pravastatin 80 mg tablet 80 mg PO QHS #90 tab 08/27/19 [Rx Last Taken Unknown] zolpidem 10 mg tablet 10 mg PO QHS 08/27/19 [History Last Taken Unknown] bupropion HCl 150 mg 24 hr tablet, extended release 150 mg PO QAM 11/30/19 [History Last Taken 12/23/19] nitroglycerin 0.4 mg sublingual tablet 0.4 mg SUBLINGUAL Q5M PRN #25 tab 11/30/19 [Rx Last Taken Unknown] metoprolol tartrate 25 mg tablet 25 mg PO BID #180 tab 09/28/20 [Rx Last Taken 03/21/21] cholecalciferol (vitamin D3) 125 mcg (5,000 unit) tablet 5,000 unit PO DAILY tab 03/10/21 [History Last Taken Unknown] clopidogrel 75 mg tablet 75 mg PO DAILY #90 tab 06/09/21 [Rx Last Taken Unknown] Allergy/AdvReac Type Severity Reaction Status Date / Time carbamazepine Allergy unknown Verified 11/06/21 14:28 colestipol Allergy unknown Verified 11/06/21 14:28 diltiazem Allergy Unknown Verified 11/06/21 14:28 levofloxacin [From Levaquin] AdvReac Upset Verified 11/06/21 14:28 Stomach meperidine HCl [From Demerol] AdvReac Vomiting Verified 11/06/21 14:28 rosuvastatin calcium AdvReac Pain in Verified 11/06/21 14:28 [From Crestor] joints Tetracyclines AdvReac Upset Verified 11/06/21 14:28 Stomach tramadol AdvReac Diarrhea Verified 11/06/21 14:28 Family History Mother CVA (cerebral vascular accident) Diabetes CAD (coronary artery disease) Brother Myocardial infarction Cancer History of PTCA Diabetes Surgical History History of cholecystectomy History of ear surgery History of hysterectomy History of left heart catheterization (LHC) (~03/21/21) History of thyroid nodule History of tonsillectomy History of total bilateral knee replacement Hx of sinus surgery Presence of coronary angioplasty implant and graft (~03/04/19) Social History Smoking Status: Current every day smoker tobacco type: cigarettes alcohol intake: never substance use type: does not use caffeine: Yes Type: coffee Number of servings: 3 what type of physical activity do you participate in: other details: cardiac rehab frequency: 3-4 times per week duration: 15-30 minutes/day seatbelt use: always do you feel safe at home: Yes ROS Constitutional Constitutional: Denies chills or fever(s) Eyes Eyes: Denies blurry vision ENT HEENT: Denies abnormal hearing Cardiovascular Cardiovascular: Denies chest pain Respiratory/Chest Respiratory/Chest: Denies cough or shortness of breath at rest Gastrointestinal Gastrointestinal: Denies abdominal pain Genitourinary Genitourinary: Denies dysuria Musculoskeletal Musculoskeletal: Reports joint pain and joint swelling Integumentary Integumentary: Denies dry skin Neurologic Neurologic: Reports abnormal gait Psychiatric Psychiatric: Denies anxiety Vital Signs Vital Signs Vital Signs: 02/27/22 00:44 02/27/22 01:02 02/27/22 01:05 Temperature 99.7 F H 100.0 F H 100.0 F H Temperature Source Oral Oral Oral Pulse Rate 118 H 112 H 110 H Respiratory Rate 22 H 20 H 18 Blood Pressure 138/71 H 151/76 H 151/76 H Blood Pressure Mean 93 101 101 Pulse Ox 95 97 97 Oxygen Delivery Method Room Air Room Air Room Air 02/27/22 03:40 02/27/22 03:41 Temperature 99.8 F H 99.8 F H Temperature Source Oral Oral Pulse Rate 93 93 Respiratory Rate 17 17 Blood Pressure 124/63 H 124/63 H Blood Pressure Mean 83 83 Pulse Ox 94 94 Oxygen Delivery Method Room Air Room Air Weight Weight: 195 lb 5.273 oz Body Mass Index (BMI) 33.5 Physical Exam Const oriented x3 General Appearance: cooperative HEENT head/scalp atraumatic Eyes PERRL Neck supple Lymph Lymphatic: no lymphadenopathy noted Resp normal respiratory effort and clear to auscultation bilaterally Cardio regular rate, regular rhythm, S1 normal heart sound and S2 normal heart sound GI normal to inspection, nondistended, normoactive bowel sounds Extremity Extremity Narrative: Bilateral knee tenderness decreased range of motion and wa rmth to touch of both knees. Skin General Skin Exam: turgor normal Neuro CN's II-XII intact bilaterally Psych affect normal Results Lab / Micro Data Result Diagrams: 02/27/22 00:35 02/27/22 00:35 Labs: Laboratory Results - last 24 hr 02/27/22 00:35: WBC 14.8 H, RBC 4.38, Hgb 12.0, Hct 37.3, MCV 85.2, MCH 27.4, MCHC 32.2, RDW Std Deviation 46.1 H, RDW Coeff of Jossy 14.8 H, Plt Count 254, MPV 10.3, Immature Gran % (Auto) 0.600, Neut % (Auto) 83.3 H, Lymph % (Auto) 6.6 L, [place] % (Auto) 9.2, Eos % (Auto) 0.1, Baso % (Auto) 0.2, Absolute Neuts (auto) 12.3 H, Absolute Lymphs (auto) 0.97, Nucleated RBC % 0, ESR 33 H 02/27/22 00:35: Sodium 135 L, Potassium 3.2 L, Chloride 100, Carbon Dioxide 22.0, Anion Gap 13, BUN 16, Creatinine 0.85, Estim Creat Clear Calc 58.50, Est GFR (MDRD) Af Amer 87, Est GFR (MDRD) Non-Af 72, BUN/Creatinine Ratio 18.8, Glucose 198 H, Calcium 8.9, Total Bilirubin 0.70, AST 3 L, ALT 15, Alkaline Phosphatase 71, C-React Prot High Sens > 190.00 H, Total Protein 7.8, Albumin 3.6, Globulin 4.2, Albumin/Globulin Ratio 0.9 02/27/22 01:30: Urine Color Yellow, Urine Clarity Clear, Urine pH 5.0, Ur Specific [place] 1.020, Urine Protein 30 H, Urine Glucose (UA) 100 H, Urine Ketones 15 H, Urine Occult Blood Negative, Urine Nitrite Negative, Urine Bilirubin Negative, Urine Urobilinogen 4 H, Ur Leukocyte Esterase 25 H, Urine RBC 0 SEEN, Urine WBC 0-5 SEEN, Ur Squamous Epith Cells 0 SEEN, Urine Bacteria 0 SEEN, Urine Mucus 0 SEEN Micro: Microbiology 02/27/22 01:10 Nasal Secretion SARS-CoV-2 & FLU Antigen (Rapid) - Final SARS-CoV-2 (COVID 19) Influenzae A Radiology Impression Knee X-Ray 02/27/22 01:07 IMPRESSION: No acute findings in the right knee. Right knee arthroplasty. Electronically Signed: Daniel Giraldo MD at 2:24 EDT Reading Location ID and State: [facility] / [place] Tel , Service support , Knee X-Ray 02/27/22 01:09 IMPRESSION: No acute findings in the left knee. Left knee arthroplasty. Electronically Signed: Daniel Giraldo MD at 2:24 EDT Reading Location ID and State: [facility] / [place] Tel , Service support , Chest X-Ray 02/27/22 02:23 IMPRESSION: No radiographic evidence of acute cardiopulmonary disease. Electronically Signed: Daniel Giraldo MD at 2:48 EDT Reading Location ID and State: [facility] / [place] Tel , Service support , Assessment & Plan Assessment/Plan (1) Osteoarthritis: (2) Asthma: (3) GERD (gastroesophageal reflux disease): (4) Depression: (5) Sleep apnea: (6) Hyperlipemia, mixed: (7) Presence of stent in coronary artery: (8) Knee pain: PLAN: 1.?Bilateral knee pain with increased swelling and difficulty with ambulation?admit patient to general medical floor, check uric acid level, start prednisone 40 mg p.o. daily, add Dilaudid as needed for pain, can consider orthopedic consult she has seen Dr. Segura for one of her knee replacement surgeries previously. 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 COVID-19 positive and influenza A positive?continue isolation protocol as patient is asymptomatic at this time would consider repeat testing as the likelihood that this is a false positive for both test is considerable 3. Depression?continue home medication 4. Sleep apnea?May use home CPAP 5. Hyperlipidemia?continue statin medication 6. GERD?continue PPI 7. DVT prophylaxis?low molecular weight heparin Charges/Coding Visit Charges Inpatient E&M: 63764 Init Hosp L3
[2022-02-27] MEDS: Potassium Chloride Oral Tablet 20 MEQ 40 MEQ PO (04:39)
[2022-02-27 06:56] LABS: Absolute Neutrophil Count 7.4 X10^3/uL (2.0-7.7); Basophil# 0.04 X10^3/uL; Basophil% 0.4 % (0-1); Eosinophil# 0.02 X10^3/uL; Eosinophils% 0.2 % (0-5); Hematocrit 32.2 % (37-47); Hemoglobin 10.5 g/dL (12.0-15.0); Lymphocyte % 13.4 % (19-41); Mean Corp Hgb Conc 32.6 g/dL (32-36); Mean Corpuscular Hgb 27.9 pg (27.0-32.0); Mean Corpuscular Volume 85.6 fL (81-99); Mean Platelet Vol. 10.2 fl (6.2-12.0); Monocyte% 9.2 % (0-10); NRBC Flagged by Analyzer 0 % (0-5); Neutrophil # 7.43 X10^3/uL (2.7-7.7); Neutrophil % 76.4 % (47-70); Platelet Count 200 K/mm3 (150-450); RBC Distribution Width SD 47.2 fl (35.1-43.9); Red Blood Count 3.76 M/mm3 (4.2-5.4); White Blood Count 9.7 K/mm3 (4.4-11.0)
[2022-02-27 07:22] LABS: Anion Gap 8 (5-15); BUN 14 mg/dL (7-18); BUN/Creat Ratio 20.7 RATIO (10-20); Calcium,Total 8.5 mg/dL (8.5-10.1); Chloride 105 mmol/L (98-107); Creatinine, Serum 0.68 mg/dL (0.55-1.02); EST Glomerular Filtration Rate 93 mL/min (>60); Est Glom Filt Rate - Afr Amer 113 mL/min (>60); Estimated Creatinine Clearance 73.12 ml/min; Glucose 188 mg/dL (74-106); Potassium 3.6 mmol/L (3.5-5.1); Sodium Level 135 mmol/L (136-145); Uric Acid 7.6 mg/dL (2.6-6.0)
[2022-02-27] MEDS: Aspirin E.C. 81 MG Tablet PO (09:59)
[2022-02-27] MEDS: Clopidogrel Bisulfate 75 MG Tablet PO (09:59)
[2022-02-27] MEDS: Metoprolol Tartrate 25 MG Tablet PO (09:59)
[2022-02-27] MEDS: Pantoprazole Sodium 40 MG Tablet PO (10:00)
[2022-02-27] MEDS: predniSONE 20 MG Tablet 40 MG PO (10:00)
[2022-02-27] MEDS: HYDROmorphone 0.5 MG/0.5 ML SYRINGE IV ×3 (10:00→21:00)
[2022-02-27] MEDS: Enoxaparin 40 MG/0.4 ML Syringe SC (10:06)
--- NOTE | 2022-02-27 10:39 | PCM.HOSP.N ---
Hospitalist Note Patient is a 61-year-old lady admitted with bilateral knee pain with swelling and inability to walk. Imaging studies obtained of both knees demonstrated no acute findings but history of previous bilateral knee arthroplasty. Patient also tested positive for COVID-19 using a rapid test as well as influenza A. PCR however came back negative for both 1. Bilateral knee pain in the patient with previous bilateral knee replacement ? Consult placed to orthopedic surgery 2. Inconclusive influenza A and COVID 19 ? Patient PCR came back negative for COVID 19 patient is currently in isolation without symptoms. Isolation subsequently discontinued 3. Hypertension - Blood pressure controlled, home medications continued with dose adjustment as needed 4. Dyslipidemia -Patient is on statin therapy, continued at home dose 5. Tobacco dependence - Counseled on cessation, offered nicotine patch for tobacco cravings 6. Depression ? Patient is a bupropion discontinued 7. Coronary artery disease with previous history of stent to proximal OM and LAD ? On recommended medications including beta-blockers antiplatelet therapy and statin therapy 8. Obstructive sleep apnea ? Currently not on any PAP therapy 9. GERD ? On PPI 10. DVT prophylaxis ? Lovenox
--- NOTE | 2022-02-27 10:48 | PCM.PN.HOSP ---
Subjective Subjective Patient is a 61-year-old lady admitted with bilateral knee pain with swelling and inability to walk. Imaging studies obtained of both knees demonstrated no acute findings but history of previous bilateral knee arthroplasty. Patient also tested positive for COVID-19 using a rapid test as well as influenza A. PCR however came back negative for both Objective Data Objective Data Vital Signs: Vital Signs Temp Pulse Resp BP Pulse Ox 97.9 F 96 16 127/69 H 94 02/27/22 09:47 02/27/22 09:59 02/27/22 09:47 02/27/22 09:59 02/27/22 09:47 Oxygen Delivery Method Room Air Weight: 84.8 kg Body Mass Index (BMI) 32.1 Intake & Output: Intake and Output for Last 24 Hours 02/25/22 02/26/22 02/27/22 23:59 23:59 23:59 Intake Total 1000 / 1000 Balance 1000 / 1000 Lab / Micro Data Result Diagrams: 02/27/22 06:30 02/27/22 06:30 Labs: Laboratory Results - last 24 hr 02/27/22 00:35: WBC 14.8 H, RBC 4.38, Hgb 12.0, Hct 37.3, MCV 85.2, MCH 27.4, MCHC 32.2, RDW Std Deviation 46.1 H, RDW Coeff of Jossy 14.8 H, Plt Count 254, MPV 10.3, Immature Gran % (Auto) 0.600, Neut % (Auto) 83.3 H, Lymph % (Auto) 6.6 L, [place] % (Auto) 9.2, Eos % (Auto) 0.1, Baso % (Auto) 0.2, Absolute Neuts (auto) 12.3 H, Absolute Lymphs (auto) 0.97, Nucleated RBC % 0, ESR 33 H 02/27/22 00:35: Sodium 135 L, Potassium 3.2 L, Chloride 100, Carbon Dioxide 22.0, Anion Gap 13, BUN 16, Creatinine 0.85, Estim Creat Clear Calc 58.50, Est GFR (MDRD) Af Amer 87, Est GFR (MDRD) Non-Af 72, BUN/Creatinine Ratio 18.8, Glucose 198 H, Calcium 8.9, Total Bilirubin 0.70, AST 3 L, ALT 15, Alkaline Phosphatase 71, C-React Prot High Sens > 190.00 H, Total Protein 7.8, Albumin 3.6, Globulin 4.2, Albumin/Globulin Ratio 0.9 02/27/22 01:30: Urine Color Yellow, Urine Clarity Clear, Urine pH 5.0, Ur Specific [place] 1.020, Urine Protein 30 H, Urine Glucose (UA) 100 H, Urine Ketones 15 H, Urine Occult Blood Negative, Urine Nitrite Negative, Urine Bilirubin Negative, Urine Urobilinogen 4 H, Ur Leukocyte Esterase 25 H, Urine RBC 0 SEEN, Urine WBC 0-5 SEEN, Ur Squamous Epith Cells 0 SEEN, Urine Bacteria 0 SEEN, Urine Mucus 0 SEEN 02/27/22 04:45: COVID-19 (BLOSSOM) Not Detected 02/27/22 06:30: Sodium 135 L, Potassium 3.6, Chloride 105, Carbon Dioxide 22.0, Anion Gap 8, BUN 14, Creatinine 0.68, Estim Creat Clear Calc 73.12, Est GFR (MDRD) Af Amer 113, Est GFR (MDRD) Non-Af 93, BUN/Creatinine Ratio 20.7 H, Glucose 188 H, Uric Acid 7.6 H, Calcium 8.5 02/27/22 06:30: WBC 9.7, RBC 3.76 L, Hgb 10.5 L, Hct 32.2 L, MCV 85.6, MCH 27.9, MCHC 32.6, RDW Std Deviation 47.2 H, RDW Coeff of Jossy 15.0 H, Plt Count 200, MPV 10.2, Immature Gran % (Auto) 0.400, Neut % (Auto) 76.4 H, Lymph % (Auto) 13.4 L, [place] % (Auto) 9.2, Eos % (Auto) 0.2, Baso % (Auto) 0.4, Absolute Neuts (auto) 7.4, Absolute Lymphs (auto) 1.30, Nucleated RBC % 0 Micro: Microbiology 02/27/22 04:45 Mucosa - Nasopharyngeal Respiratory Panel (PCR) - Final 02/27/22 01:10 Nasal Secretion SARS-CoV-2 & FLU Antigen (Rapid) - Final SARS-CoV-2 (COVID 19) Influenzae A Radiography Diagnostic Testing: Radiology Impression Knee X-Ray 02/27/22 01:07 IMPRESSION: No acute findings in the right knee. Right knee arthroplasty. Electronically Signed: Daniel Giraldo MD at 2:24 EDT , Knee X-Ray 02/27/22 01:09 IMPRESSION: No acute findings in the left knee. Left knee arthroplasty. Electronically Signed: Daniel Giraldo MD at 2:24 EDT , Chest X-Ray 02/27/22 02:23 IMPRESSION: No radiographic evidence of acute cardiopulmonary disease. Electronically Signed: Daniel Giraldo MD at 2:48 EDT , Physical Exam Narrative GENERAL: cooperative HEENT: Atraumatic; EYES; Anicteric, Normal Conjunctiva NECK; supple, normal thyroid, RESPIRATORY: Diminished to auscultation CARDIOVASCULAR: Regular S1 S2, GI: soft, normoactive bowel sounds, : No Renal angle tenderness; EXTREMITIES: No edema, no clubbing, MUSCULOSKELETAL: Swelling involving both knees NEURO: Awake; no lateralizing signs. SKIN: No Rash PSYCH; Flat affect Assessment & Plan Assessment/Plan (1) Osteoarthritis: (2) Asthma: (3) GERD (gastroesophageal reflux disease): (4) Depression: (5) Sleep apnea: (6) Hyperlipemia, mixed: (7) Presence of stent in coronary artery: (8) Knee pain: PLAN: Patient is a 61-year-old lady admitted with bilateral knee pain with swelling and inability to walk. Imaging studies obtained of both knees demonstrated no acute findings but history of previous bilateral knee arthroplasty. Patient also tested positive for COVID-19 using a rapid test as well as influenza A. PCR however came back negative for both 1. Bilateral knee pain in the patient with previous bilateral knee replacement ? Consult placed to orthopedic surgery 2. Inconclusive influenza A and COVID 19 ? Patient PCR came back negative for COVID 19 patient is currently in isolation without symptoms. Isolation subsequently discontinued 3. Hypertension - Blood pressure controlled, home medications continued with dose adjustment as needed 4. Dyslipidemia -Patient is on statin therapy, continued at home dose 5. Tobacco dependence - Counseled on cessation, offered nicotine patch for tobacco cravings 6. Depression ? Patient is a bupropion discontinued 7. Coronary artery disease with previous history of stent to proximal OM and LAD ? On recommended medications including beta-blockers antiplatelet therapy and statin therapy 8. Obstructive sleep apnea ? Currently not on any PAP therapy 9. GERD ? On PPI 10. DVT prophylaxis ? Lovenox Additional time spent reviewing patient's charts patient examination adjustment of patient initial orders and discussion with providers involved in patient's care 40 minutes Charges/Coding Procedures Hospitalists Procedures: [id number] Prolonged Physician INPT
--- NOTE | 2022-02-27 11:40 | CASEMGMT ---
RN AB Face to Face with patient for initial transition planning/care coordination assessment. RN CM introduced self and role at [facility]. Patient lying in bed, alert and oriented. Patient willing to participate in assessment and is able to answer all questions appropriately. Care providers, pharmacy, and demographics verified. Patient wishes to discharge home, denies need for home health at this time. Patient states she has no further needs or concerns at this time. CM to follow for discharge planning needs that may arise. PCP: Terrell Specialists: Lola Preferred Pharmacy: [facility] Insurance: MMO, MCRA Prescription Benefit: yes Living Will/HPOA: none LNOK: , daughter Living Arrangements: Patient lives with in a mobile home with 5 steps and railing to enter. Patient states she is independent at home. Transportation: self, DME/HHC: Patient states she has shower chair, raised toilet, cane, and walker. No previous HHC or SNF. No preferences for DME. Disposition Plan: Patient to discharge home with family support and follow-up plans in place Pati CHAVEZ, RN, CM
[2022-02-27 11:46] LABS: Erythrocyte Sedimentation Rate 53 mm/hr (0-30)
[2022-02-27] MEDS: metFORMIN HCl 1,000 MG Tablet 1000 MG PO ×2 (11:50→16:30)
[2022-02-27] MEDS: buPROPion (XL) 150 MG TABLET.XL PO (11:50)
[2022-02-27] MEDS: Cholecalciferol (Vit D3) 125 MCG CAPSULE (5,000 UNITS) PO (11:50)
--- NOTE | 2022-02-27 15:59 | PCM.CONS.GEN ---
Assessment & Plan Assessment/Plan (1) Painful total knee replacement, left: PLAN: Patient has bilateral painful total knee replacements. Natural history of the disease process and treatment options were discussed the patient. Patient had no postoperative complications in 2012 or 2014 when the previous knee replacements were done. right knee replacement was done at this institution and appropriate implants of been identified. We will continue to work on identifying the implants and the left total knee replacement. I discussed the patient reasons for pain full total knee replacement especially in the acute setting and my concerns related to her infection from last week. Her accompanying malaise may have been a sign of systemic infection and my concern at this time is for bilateral periprosthetic joint infections. Based on this her inflammatory lab work was evaluated which was elevated ESR and CRP are both elevated. CRP is significantly elevated consistent with an acute infection. Based on this, aspiration of bilateral knees was recommended. Patient agreed and consented. Bilateral knees were aspirated please see procedure notes below. Both knees showed cloudy fluid concerning for infection. At this time I am going to make the patient NPO. Also going to check for hemoglobin A1c to evaluate her blood sugar control. Patient has numerous risk factors including diabetes, coronary artery disease and smoking. I did discuss the patient available treatment options likely will require surgery should we be able to confirm infection which I am highly suspicious of. I recommended a irrigation debridement polyethylene exchange of both knees based on the duration of the symptoms and the recent nature of the most likely inciting event. We did discuss the failure rate is well as well as to two-stage revision arthroplasty for knee infections. Timing and staging will still need to be definitively determined I would like to do them both in a timely manner if possible in order to help ensure success of retaining implants. Risks and benefits of the procedure were discussed the patient including but not limited to blood loss, DVTs, PEs, neurovascular damage, infection, the risk of anesthesia including loss of life. Patient understands additional things can occur such as super infections and medical issues such as cardiac events, strokes and loss of life. While the patient cleared by medicine. We will make her n.p.o. If she become septic initiation of antibiotics is appropriate as we have an aspirate however, if we proceed surgery tomorrow holding antibiotics until tissue cultures can be obtained may be beneficial in identifying an appropriate bacterial bug. Procedure: The left knee was prepped in a sterile fashion. Betadine and alcohol were used. Suprapatellar lateral area was palpated using sterile gloves. With the use of sterile gloves a 30 cc syringe was used with an 18-gauge needle and placed in this lateral suprapatellar portal. 30 cc of fluid was obtained it was cloudy fluid. Fluid was placed in red and purple top tubes using a new sterile needle previous needle was removed from the knee and pressure was held and Band-Aid was placed. Patient tolerated the procedure well. (2) Painful total knee replacement, right: PLAN: Please see above plan Procedure: The rightt knee was prepped in a sterile fashion. Betadine and alcohol were used. Suprapatellar lateral area was palpated using sterile gloves. With the use of sterile gloves a 30 cc syringe was used with an 18-gauge needle and placed in this lateral suprapatellar portal. 45 cc of fluid was obtained it was cloudy fluid. Fluid was placed in red and purple top tubes using a new sterile needle previous needle was removed from the knee and pressure was held and Band-Aid was placed. Patient tolerated the procedure well. (3) Cigarette nicotine dependence: QUALIFIERS: Substance use status: uncomplicated Qualified Code(s): F17.210 - Nicotine dependence, cigarettes, uncomplicated PLAN: Managed per primary service. Cessation encouraged. (4) Atherosclerosis of [place] coronary artery of [place] heart without angina pectoris: PLAN: Managed per primary service (5) Diabetes: QUALIFIERS: Diabetes mellitus type: type 2 Diabetes mellitus complication status: without complication Diabetes mellitus exterminator helper insulin use: without exterminator helper use Qualified Code(s): E11.9 - Type 2 diabetes mellitus without complications; E11.9 - Type 2 diabetes mellitus without complications; E11.9 - Type 2 diabetes mellitus without complications; E11.9 - Type 2 diabetes mellitus without complications PLAN: Hemoglobin A1c ordered, managed per primary service HPI Consult Data Date of Consult: 02/27/22 HPI Narrative Reason for Consultation: Bilateral knee pain HPI Narrative: MICKI PACK, is a 61 F with multiple medical comorbidities and previous bilateral knee replacements who presents with bilateral knee pain and swelling. Patient reports that she woke up yesterday morning and had severe bilateral knee pain and swelling. Pain is rated at a 7 out of 10 worse with motion better with immobilization. Patient's knee is increased with knee flexion. She denies any fevers chills or night sweats. She has been afebrile at hospital however, she has seen her temperature rise to 100.0. Patient reports increased warmth of the knee however no redness was noted at any time. She did have a sinus infection last week which was treated with Augmentin. Patient reports periods of malaise prior to being placed on antibiotics which could be consistent with systemic infection. Her left total knee replacement was done in [facility] [place] in 2012, her right knee replacement was done in 2014 locally here with my partner Dr. Segura. Patient otherwise lives at home with her and functions independently. History of coronary artery disease on aspirin and Plavix, diabetes, and current smoker. [facility] Medical History Asthma Atherosclerosis of [place] coronary artery of [place] heart without angina pectoris Bruit of left carotid artery CAD (coronary artery disease), [place] coronary artery Cigarette nicotine dependence Depression Diabetes Essential hypertension GERD (gastroesophageal reflux disease) Hyperlipemia, mixed Hypertension Osteoarthritis Pneumonia Presence of stent in coronary artery (~03/04/19) Sleep apnea Home Medications albuterol sulfate 1 puff INHALATION Q6H PRN PRN 12/16/14 [History Last Taken 08/14/16] metformin 1,000 mg PO BID 12/16/14 [History Last Taken 03/20/21] pantoprazole 40 mg PO DAILY tab 10/11/18 [Rx Last Taken Unknown] aspirin 81 mg tablet,delayed release 81 mg PO DAILY #90 tab 08/27/19 [Rx Last Taken 03/21/21] pravastatin 80 mg tablet 80 mg PO QHS #90 tab 08/27/19 [Rx Last Taken Unknown] zolpidem 10 mg tablet 10 mg PO QHS 08/27/19 [History Last Taken Unknown] bupropion HCl 150 mg 24 hr tablet, extended release 150 mg PO QAM 11/30/19 [History Last Taken 12/23/19] nitroglycerin 0.4 mg sublingual tablet 0.4 mg SUBLINGUAL Q5M PRN #25 tab 11/30/19 [Rx Last Taken Unknown] metoprolol tartrate 25 mg tablet 25 mg PO BID #180 tab 09/28/20 [Rx Last Taken 03/21/21] cholecalciferol (vitamin D3) 125 mcg (5,000 unit) tablet 5,000 unit PO DAILY tab 03/10/21 [History Last Taken Unknown] clopidogrel 75 mg tablet 75 mg PO DAILY #90 tab 06/09/21 [Rx Last Taken Unknown] Allergy/AdvReac Type Severity Reaction Status Date / Time carbamazepine Allergy unknown Verified 11/06/21 14:28 colestipol Allergy unknown Verified 11/06/21 14:28 diltiazem Allergy Unknown Verified 11/06/21 14:28 levofloxacin [From Levaquin] AdvReac Upset Verified 11/06/21 14:28 Stomach meperidine HCl [From Demerol] AdvReac Vomiting Verified 11/06/21 14:28 rosuvastatin calcium AdvReac Pain in Verified 11/06/21 14:28 [From Crestor] joints Tetracyclines AdvReac Upset Verified 11/06/21 14:28 Stomach tramadol AdvReac Diarrhea Verified 11/06/21 14:28 Family History Mother CVA (cerebral vascular accident) Diabetes CAD (coronary artery disease) Brother Myocardial infarction Cancer History of PTCA Diabetes Surgical History History of cholecystectomy History of ear surgery History of hysterectomy History of left heart catheterization (LHC) (~03/21/21) History of thyroid nodule History of tonsillectomy History of total bilateral knee replacement Hx of sinus surgery Presence of coronary angioplasty implant and graft (~03/04/19) Social History household members: spouse housing: other Smoking Status: Current every day smoker tobacco type: cigarettes alcohol intake: never substance use type: does not use caffeine: Yes Type: coffee Number of servings: 3 what type of physical activity do you participate in: other details: cardiac rehab frequency: 3-4 times per week duration: 15-30 minutes/day seatbelt use: always do you feel safe at home: Yes Physical Exam Const alert and oriented x3 General Appearance: well kempt HEENT normocephalic and head/scalp atraumatic Eyes PERRL Neck No nuchal rigidity Resp normal respiratory effort Cardio regular rate GI non-distended Extremity Extremity Narrative: Right lower extremity: Previous incision is clean dry and intact. Large effusion. Tenderness palpation globally about the knee. Increased pain with knee flexion. Knee flexion to 30 degrees with increased pain. Stable to varus and valgus stress. Warm to touch. Neurovascular intact distally. Left lower extremity:Previous incision is clean dry and intact. Large effusion. Tenderness palpation globally about the knee. Increased pain with knee flexion. Knee flexion to 30 degrees with increased pain. Stable to varus and valgus stress. Warm to touch. Neurovascular intact distally. Neuro oriented x3 Lab / Micro Data Result Diagrams: 02/27/22 06:30 02/27/22 06:30 Labs: Laboratory Results - last 24 hr 02/27/22 00:35: WBC 14.8 H, RBC 4.38, Hgb 12.0, Hct 37.3, MCV 85.2, MCH 27.4, MCHC 32.2, RDW Std Deviation 46.1 H, RDW Coeff of [place]oss[place] 14.8 H, Plt Count 254, MPV 10.3, Immature Gran % (Auto) 0.600, Neut % (Auto) 83.3 H, Lymph % (Auto) 6.6 L, [place] % (Auto) 9.2, Eos % (Auto) 0.1, Baso % (Auto) 0.2, Absolute Neuts (auto) 12.3 H, Absolute Lymphs (auto) 0.97, Nucleated RBC % 0, ESR 33 H 02/27/22 00:35: Sodium 135 L, Potassium 3.2 L, Chloride 100, Carbon Dioxide 22.0, Anion Gap 13, BUN 16, Creatinine 0.85, Estim Creat Clear Calc 58.50, Est GFR (MDRD) Af Amer 87, Est GFR (MDRD) Non-Af 72, BUN/Creatinine Ratio 18.8, Glucose 198 H, Calcium 8.9, Total Bilirubin 0.70, AST 3 L, ALT 15, Alkaline Phosphatase 71, C-React Prot High Sens > 190.00 H, Total Protein 7.8, Albumin 3.6, Globulin 4.2, Albumin/Globulin Ratio 0.9 02/27/22 01:30: Urine Color Yellow, Urine Clarity Clear, Urine pH 5.0, Ur Specific [place] 1.020, Urine Protein 30 H, Urine Glucose (UA) 100 H, Urine Ketones 15 H, Urine Occult Blood Negative, Urine Nitrite Negative, Urine Bilirubin Negative, Urine Urobilinogen 4 H, Ur Leukocyte Esterase 25 H, Urine RBC 0 SEEN, Urine WBC 0-5 SEEN, Ur Squamous Epith Cells 0 SEEN, Urine Bacteria 0 SEEN, Urine Mucus 0 SEEN 02/27/22 04:45: COVID-19 (BLOSSOM) Not Detected 02/27/22 06:30: Sodium 135 L, Potassium 3.6, Chloride 105, Carbon Dioxide 22.0, Anion Gap 8, BUN 14, Creatinine 0.68, Estim Creat Clear Calc 73.12, Est GFR (MDRD) Af Amer 113, Est GFR (MDRD) Non-Af 93, BUN/Creatinine Ratio 20.7 H, Glucose 188 H, Uric Acid 7.6 H, Calcium 8.5 02/27/22 06:30: WBC 9.7, RBC 3.76 L, Hgb 10.5 L, Hct 32.2 L, MCV 85.6, MCH 27.9, MCHC 32.6, RDW Std Deviation 47.2 H, RDW Coeff of [place] 15.0 H, Plt Count 200, MPV 10.2, Immature Gran % (Auto) 0.400, Neut % (Auto) 76.4 H, Lymph % (Auto) 13.4 L, [place] % (Auto) 9.2, Eos % (Auto) 0.2, Baso % (Auto) 0.4, Absolute Neuts (auto) 7.4, Absolute Lymphs (auto) 1.30, Nucleated RBC % 0 02/27/22 06:30: ESR 53 H Micro: Microbiology 02/27/22 04:45 Mucosa - Nasopharyngeal Respiratory Panel (PCR) - Final 02/27/22 01:10 Nasal Secretion SARS-CoV-2 & FLU Antigen (Rapid) - Final SARS-CoV-2 (COVID 19) Influenzae A Radiology Impression Knee X-Ray 02/27/22 01:07 IMPRESSION: No acute findings in the right knee. Right knee arthroplasty. Electronically Signed: Daniel Giraldo MD at 2:24 EDT , Knee X-Ray 02/27/22 01:09 IMPRESSION: No acute findings in the left knee. Left knee arthroplasty. Electronically Signed: Daniel Giraldo MD at 2:24 EDT , Chest X-Ray 02/27/22 02:23 IMPRESSION: No radiographic evidence of acute cardiopulmonary disease. Electronically Signed: Daniel Giraldo MD at 2:48 EDT ,
[2022-02-27 16:42] LABS: Pathologist Comment May follow
[2022-02-27 16:52] LABS: Hemoglobin A1c 7.7 % (3.8-5.6)
[2022-02-27 18:43] LABS: Synovial Fld Mononuclear WBC # 6.727 10^3/ul
[2022-02-27 18:58] LABS: Synovial Fld Mononuclear WBC % 8.8 %; Synovial Fld Polynuclear WBC # 55.143 10^3/uL; Synovial Fld Polynuclear WBC % 91.2 %
--- NOTE | 2022-02-27 20:28 | EKG12_ITS ---
Test Reason : PRE-OP Blood Pressure : / mmHG Vent. Rate : 076 BPM Atrial Rate : 076 BPM P-R Int : 186 ms QRS Dur : 090 ms QT Int : 388 ms P-R-T Axes : 063 000 036 degrees QTc Int : 436 ms Normal sinus rhythm Low voltage QRS Borderline ECG When compared with ECG of 05-MAR-2019 05:32, Vent. rate has increased BY 29 BPM Confirmed by JEEVAN FOUNTAIN, HATTIE ([id number]), video tape editor TIFFANIE MALONEY ([id number]) on 02/28/2022 2:08:07 PM Referred By: DR SMITH Confirmed By:HATTIE CHEW MD
--- NOTE | 2022-02-27 20:28 | PCM.CONS.C ---
Assessment & Plan Assessment/Plan (1) Atherosclerosis of mentasta coronary artery of mentasta heart without angina pectoris: PLAN: At the present time she appears to be without any acute symptoms with respect to her underlying CAD status. She should continue risk factor modification medical therapy as deemed appropriate. (2) Presence of stent in coronary artery: PLAN: She does have a history of PCI. She has undergone noninvasive and invasive valuation in 2020 is noted. At the moment she will continue her risk factor modification medical therapy. (3) Hyperlipemia, mixed: PLAN: She has history of hyperlipidemia. She should continue medical management. (4) Essential hypertension: PLAN: She has a history of hypertension. Her blood pressure will need to be monitored and she should continue medical therapy. (5) Cardiac murmur: PLAN: She has a cardiac murmur. This may be related to the previous findings with respect to her mild focal aortic valve calcification. However, it would not be unreasonable to repeat her transthoracic echocardiogram to evaluate for any obvious significant change in her valvular findings that would warrant further evaluation and/or care and/or contribute to her ongoing bilateral knee related issues. (6) Preoperative cardiovascular examination: PLAN: From a preoperative standpoint she should continue to be monitored. She should continue her medical therapy as best as possible in and around the time of her surgery. An attempt should be made to avoid significant fluctuations in her vital signs and her volume status during and following surgery. She will also be asked to have a transthoracic echocardiogram to reassess her cardiac anatomy and physiology as part of her preoperative evaluation. Addt'l Comments The patient's case was discussed and reviewed with the patient and Dr. Miller. This note was generated using a voice recognition system and there may be incorrect words, spelling or punctuation that were not noted when reviewing the office note prior to saving. HPI Consult Data Date of Consult: 02/27/22 HPI Narrative HPI Narrative: MICKI PACK, is a 61 year old white feamle who presents for preoperative cardiovascular consultation based upon a history of underlying CAD, status post PCI, hyperlipidemia, and hypertension for upcoming bilateral knee surgery by orthopedic surgery. The patient states that she awoke and had discomfort in both knees and felt that she could barely walk. She states both knees were swollen and reddened. She was subsequently brought to the emergency department for further evaluation. She notes that she has subsequently undergone evaluation by orthopedic surgery and had bilateral knee drainage performed. She states she has been recommended by orthopedic surgery for bilateral surgical debridement procedure. He was evaluated in the emergency department. She was found to have a WBC of 14.8 which has subsequently decreased to 9.7. Based upon concerns of a report of a recent COVID 19 infection she underwent evaluation for both influenza A/B and COVID-19. Per the [facility] medical staff/records her initial rapid studies were positive. There were concerns that the studies were a false positive. He subsequently underwent a PCR study for both influenza A/B and COVID-19. They were reported as negative. Thus she has been released from COVID-19 precautions. Her body fluid cultures are pending at this time. The patient denies symptoms considered classic for angina pectoris, CHF / pulmonary edema (with respect to orthopnea / PND), ongoing palpitations, or near syncope / syncope. She denies any known fever, chills, or night sweats. She denies any other obvious concerns of skin lesions or rashes. She denies any recent dental visits. [facility] Medical History (Updated 02/27/22 @ 20:[address] Isac Davila MD) Asthma Atherosclerosis of mentasta coronary artery of mentasta heart without angina pectoris Bruit of left carotid artery CAD (coronary artery disease), mentasta coronary artery Cigarette nicotine dependence Depression Diabetes Essential hypertension GERD (gastroesophageal reflux disease) Hyperlipemia, mixed Hypertension Osteoarthritis Pneumonia Preoperative cardiovascular examination Presence of stent in coronary artery (~03/04/19) Sleep apnea Home Medications albuterol sulfate 1 puff INHALATION Q6H PRN PRN 12/16/14 [History Last Taken 08/14/16] metformin 1,000 mg PO BID 12/16/14 [History Last Taken 03/20/21] pantoprazole 40 mg PO DAILY tab 10/11/18 [Rx Last Taken Unknown] aspirin 81 mg tablet,delayed release 81 mg PO DAILY #90 tab 08/27/19 [Rx Last Taken 03/21/21] pravastatin 80 mg tablet 80 mg PO QHS #90 tab 08/27/19 [Rx Last Taken Unknown] zolpidem 10 mg tablet 10 mg PO QHS 08/27/19 [History Last Taken Unknown] bupropion HCl 150 mg 24 hr tablet, extended release 150 mg PO QAM 11/30/19 [History Last Taken 12/23/19] nitroglycerin 0.4 mg sublingual tablet 0.4 mg SUBLINGUAL Q5M PRN #25 tab 11/30/19 [Rx Last Taken Unknown] metoprolol tartrate 25 mg tablet 25 mg PO BID #180 tab 09/28/20 [Rx Last Taken 03/21/21] cholecalciferol (vitamin D3) 125 mcg (5,000 unit) tablet 5,000 unit PO DAILY tab 03/10/21 [History Last Taken Unknown] clopidogrel 75 mg tablet 75 mg PO DAILY #90 tab 06/09/21 [Rx Last Taken Unknown] Allergy/AdvReac Type Severity Reaction Status Date / Time carbamazepine Allergy unknown Verified 11/06/21 14:28 colestipol Allergy unknown Verified 11/06/21 14:28 diltiazem Allergy Unknown Verified 11/06/21 14:28 levofloxacin [From Levaquin] AdvReac Upset Verified 11/06/21 14:28 Stomach meperidine HCl [From Demerol] AdvReac Vomiting Verified 11/06/21 14:28 rosuvastatin calcium AdvReac Pain in Verified 11/06/21 14:28 [From Crestor] joints Tetracyclines AdvReac Upset Verified 11/06/21 14:28 Stomach tramadol AdvReac Diarrhea Verified 11/06/21 14:28 Family History Mother CVA (cerebral vascular accident) Diabetes CAD (coronary artery disease) Brother Myocardial infarction Cancer History of PTCA Diabetes Surgical History History of cholecystectomy History of ear surgery History of hysterectomy History of left heart catheterization (LHC) (~03/21/21) History of thyroid nodule History of tonsillectomy History of total bilateral knee replacement Hx of sinus surgery Presence of coronary angioplasty implant and graft (~03/04/19) Social History household members: spouse housing: other Smoking Status: Current every day smoker tobacco type: cigarettes alcohol intake: never substance use type: does not use caffeine: Yes Type: coffee Number of servings: 3 what type of physical activity do you participate in: other details: cardiac rehab frequency: 3-4 times per week duration: 15-30 minutes/day seatbelt use: always do you feel safe at home: Yes ROS Constitutional Constitutional: Reports as per HPI Eyes Eyes: Reports as per HPI ENT HEENT: Reports as per HPI Cardiovascular Cardiovascular: Reports none Respiratory/Chest Respiratory/Chest: Reports as per HPI Gastrointestinal Gastrointestinal: Reports as per HPI Genitourinary Genitourinary: Reports as per HPI Musculoskeletal Musculoskeletal: Reports as per HPI Integumentary Integumentary: Reports as per HPI Neurologic Neurologic: Reports as per HPI Psychiatric Psychiatric: Reports as per HPI Physical Exam Const alert, oriented x3 and no apparent distress Orientation / Consciousness: awake HEENT normocephalic, head/scalp atraumatic and hearing grossly normal bilaterally Eyes PERRL, EOMs intact bilaterally and conjunctivae normal Neck full ROM, supple and no JVD Resp clear to auscultation bilaterally Cardio regular rate, regular rhythm, S1 normal heart sound and S2 normal heart sound Heart Sounds: murmur systolic II/ soft mid left sternal border, LVOT and sternal notch GI normal to inspection, nondistended, normoactive bowel sounds Extremity no pedal edema Neuro oriented x3, moves all extremities, no focal motor deficits and no sensory deficits noted Psych mental status grossly normal Risk Stratification Risk Stratification Applicable: No Procedure Criteria Type of Procedure Procedure Type: Elective Elective Risks - COVID COVID Risk Discussion: The surgeon/proceduralist and patient have discussed in detail the risk of exposure to and/or potential harm posed by the COVID-19 virus with having a surgery/procedure at this time versus the risk of delaying the surgery/procedure. It is not possible to know either the risk of delaying the surgery or procedure or chance of getting an infection with perfect accuracy, but a joint decision was made between the patient and the surgeon/proceduralist to proceed at this time with the scheduled surgery/procedure as indicated on the consent form. Objective Data Vital Signs: Vital Signs Temp Pulse Resp BP Pulse Ox 98.4 F 71 16 113/56 L 96 02/27/22 16:28 02/27/22 16:28 02/27/22 16:28 02/27/22 16:28 02/27/22 16:28 Oxygen Delivery Method Room Air Weight: 186 lb 15.232 oz Body Mass Index (BMI) 32.1 Intake & Output: Intake and Output for Last 24 Hours 05/02/26/22 02/27/22 23:59 23:59 23:59 Intake Total 2099 / 2099 Output Total 50 / 50 Balance 2049 Lab / Micro Data Result Diagrams: 02/27/22 06:30 02/27/22 06:30 Labs: Laboratory Results - last 24 hr 02/27/22 00:35: WBC 14.8 H, RBC 4.38, Hgb 12.0, Hct 37.3, MCV 85.2, MCH 27.4, MCHC 32.2, RDW Std Deviation 46.1 H, RDW Coeff of Jossy 14.8 H, Plt Count 254, MPV 10.3, Immature Gran % (Auto) 0.600, Neut % (Auto) 83.3 H, Lymph % (Auto) 6.6 L, Isabela % (Auto) 9.2, Eos % (Auto) 0.1, Baso % (Auto) 0.2, Absolute Neuts (auto) 12.3 H, Absolute Lymphs (auto) 0.97, Nucleated RBC % 0, ESR 33 H 02/27/22 00:35: Sodium 135 L, Potassium 3.2 L, Chloride 100, Carbon Dioxide 22.0, Anion Gap 13, BUN 16, Creatinine 0.85, Estim Creat Clear Calc 58.50, Est GFR (MDRD) Af Amer 87, Est GFR (MDRD) Non-Af 72, BUN/Creatinine Ratio 18.8, Glucose 198 H, Calcium 8.9, Total Bilirubin 0.70, AST 3 L, ALT 15, Alkaline Phosphatase 71, C-React Prot High Sens > 190.00 H, Total Protein 7.8, Albumin 3.6, Globulin 4.2, Albumin/Globulin Ratio 0.9 02/27/22 01:30: Urine Color Yellow, Urine Clarity Clear, Urine pH 5.0, Ur Specific [place] 1.020, Urine Protein 30 H, Urine Glucose (UA) 100 H, Urine Ketones 15 H, Urine Occult Blood Negative, Urine Nitrite Negative, Urine Bilirubin Negative, Urine Urobilinogen 4 H, Ur Leukocyte Esterase 25 H, Urine RBC 0 SEEN, Urine WBC 0-5 SEEN, Ur Squamous Epith Cells 0 SEEN, Urine Bacteria 0 SEEN, Urine Mucus 0 SEEN 02/27/22 04:45: COVID-19 (BLOSSOM) Not Detected 02/27/22 06:30: Sodium 135 L, Potassium 3.6, Chloride 105, Carbon Dioxide 22.0, Anion Gap 8, BUN 14, Creatinine 0.68, Estim Creat Clear Calc 73.12, Est GFR (MDRD) Af Amer 113, Est GFR (MDRD) Non-Af 93, BUN/Creatinine Ratio 20.7 H, Glucose 188 H, Uric Acid 7.6 H, Calcium 8.5 02/27/22 06:30: WBC 9.7, RBC 3.76 L, Hgb 10.5 L, Hct 32.2 L, MCV 85.6, MCH 27.9, MCHC 32.6, RDW Std Deviation 47.2 H, RDW Coeff of Jossy 15.0 H, Plt Count 200, MPV 10.2, Immature Gran % (Auto) 0.400, Neut % (Auto) 76.4 H, Lymph % (Auto) 13.4 L, Isabela % (Auto) 9.2, Eos % (Auto) 0.2, Baso % (Auto) 0.4, Absolute Neuts (auto) 7.4, Absolute Lymphs (auto) 1.30, Nucleated RBC % 0 02/27/22 06:30: ESR 53 H 02/27/22 06:30: Hemoglobin A1c 7.7 H Micro: Microbiology 02/27/22 Unknown Fluid - Synovial (joint) Gram Stain - Preliminary 02/27/22 Unknown Fluid - Synovial (joint) Gram Stain - Preliminary 02/27/22 04:45 Mucosa - Nasopharyngeal Respiratory Panel (PCR) - Final 02/27/22 01:10 Nasal Secretion SARS-CoV-2 & FLU Antigen (Rapid) - Final SARS-CoV-2 (COVID 19) Influenzae A Cardiology Labs/Tests 02/27/22 00:35: WBC 14.8 H, RBC 4.38, Hgb 12.0, Hct 37.3, MCV 85.2, MCH 27.4, MCHC 32.2, Plt Count 254, MPV 10.3, Immature Gran % (Auto) 0.600, Neut % (Auto) 83.3 H, Lymph % (Auto) 6.6 L, Isabela % (Auto) 9.2, Eos % (Auto) 0.1, Baso % (Auto) 0.2, Absolute Neuts (auto) 12.3 H, Nucleated RBC % 0 02/27/22 00:35: Sodium 135 L, Potassium 3.2 L, Chloride 100, Carbon Dioxide 22.0, Anion Gap 13, BUN 16, Creatinine 0.85, Est GFR (MDRD) Af Amer 87, Est GFR (MDRD) Non-Af 72, BUN/Creatinine Ratio 18.8, Glucose 198 H, Calcium 8.9, Total Bilirubin 0.70 02/27/22 01:30: Urine Color Yellow, Urine Clarity Clear, Urine pH 5.0, Ur Specific [place] 1.020, Urine Protein 30 H, Urine Glucose (UA) 100 H, Urine Ketones 15 H, Urine Occult Blood Negative, Urine Nitrite Negative, Urine Bilirubin Negative, Urine Urobilinogen 4 H, Ur Leukocyte Esterase 25 H, Urine RBC 0 SEEN, Urine WBC 0-5 SEEN 02/27/22 06:30: Sodium 135 L, Potassium 3.6, Chloride 105, Carbon Dioxide 22.0, Anion Gap 8, BUN 14, Creatinine 0.68, Est GFR (MDRD) Af Amer 113, Est GFR (MDRD) Non-Af 93, BUN/Creatinine Ratio 20.7 H, Glucose 188 H, Uric Acid 7.6 H, Calcium 8.5 02/27/22 06:30: WBC 9.7, RBC 3.76 L, Hgb 10.5 L, Hct 32.2 L, MCV 85.6, MCH 27.9, MCHC 32.6, Plt Count 200, MPV 10.2, Immature Gran % (Auto) 0.400, Neut % (Auto) 76.4 H, Lymph % (Auto) 13.4 L, Isabela % (Auto) 9.2, Eos % (Auto) 0.2, Baso % (Auto) 0.4, Absolute Neuts (auto) 7.4, Nucleated RBC % 0 02/27/22 06:30: Hemoglobin A1c 7.7 H Rhythm: Sinus rhythm EKG: Sinus rhythm; low voltage QRS-limb leads; inferior RI of indeterminate age cannot be excluded Transthoracic echocardiogram: 10-02-16 Interpretation Summary Left ventricular systolic function is normal. The estimated ejection fraction is 60 %. The left atrium is mildly enlarged. Trivial mitral valve insufficiency. Trivial tricuspid valve insufficiency. Mild focal aortic valve calcification. Bubble contrast study negative for right to left interatrial shunt. Transthoracic echocardiogram: 02-22-2021 Interpretation Summary The study was technically difficult. Left ventricular systolic function is normal. The estimated ejection fraction is 60 %. Trivial mitral valve insufficiency. Trivial tricuspid valve insufficiency. Mild focal aortic valve calcification. Right ventricular systolic pressure estimated to be 26 mmHg. No evidence for diastolic dysfunction. Stress Test Report Date: 02-22-2021 Procedure: Pharmacologic stress nuclear imaging study Indications: Chest pain; CAD; PCI Consent: Per the patient Procedure: The patient underwent pharmacologic (Regadenoson 0.4mg ) evaluation with a peak heart rate of 94 beats per minute (59%predicted maximal heart rate) and a peak blood pressure of 142/70 mmHg. The baseline ECG demonstrated sinus rhythm. The peak pharmacologic ECG demonstrated no obvious ECG changes. There were no cardiac dysrhythmias pretest, during pharmacologic infusion, or recovery. There was no complaint of chest discomfort during pharmacologic infusion or recovery. The examination was discontinued secondary to completion of protocol. Impression: 1. Pharmacologic (Regadenoson) evaluation 2. Peak pharmacologic ECG with no obvious ECG changes. 3. There were no cardiac dysrhythmias pretest, during pharmacologic infusion, or recovery. 4. Nuclear images pending Myocardial perfusion imaging study: Technique: The patient was injected with 11.7 millicuries of technetium 99m Cardiolite and subsequently rest SPECT Cardiolite nuclear imaging was obtained in the horizontal long, vertical long, and short axis views. The patient underwent pharmacologic (Regadenoson) evaluation with a peak heart rate of 94 beats per minute (59% percent predicted maximal heart rate) and a peak blood pressure of 142/70 mmHg. The patient was injected with 34.8 millicuries of technetium 99m Cardiolite and subsequently stress SPECT Cardiolite nuclear imaging was obtained in the horizontal long, vertical long, and short axis views. A gated Cardiolite study at peak stress was obtained. Interpretation: Rest and stress SPECT Cardiolite nuclear imaging status post realignment, normalization, and attenuation correction demonstrate at rest the appearance of diminished myocardial perfusion/tracer uptake in portions of the mid anterior segments and status post stress the appearance of diminished myocardial perfusion/tracer uptake in portions of the basal to mid anterior segments. There is diminished end systolic thickening and brightening. The gated Cardiolite study demonstrates diminished myocardial thickening and inward wall motion. The reported LVEF is 41%. Impression: 1. Rest and stress SPECT. Nuclear imaging demonstrate myocardial perfusion changes appearing compatible with an area of previous myocardial injury/infarction involving portions of the mid anterior segments with post-rest myocardial perfusion changes suggestive of an element of taya-infarct related myocardial ischemia. 2. The gated Cardiolite study reports an LVEF of 41%. Cardiac catheterization: 12/23/2019 CONCLUSIONS Elevated Left Ventricular End Diastolic Pressure Segmented LV systolic dysfunction- Mild LVEF: by LV gram 60 % [place] Multivessel CAD RECOMMENDATIONS Risk factor modification Medical therapy CORONARY ANGIOGRAPHY DOMINANCE: Left Dominant LEFT HEART ASSESSMENT Left Ventricular Ejection Fraction: by LV Gram 60 % Inferior Mid Hypokinesis Elevated Left Ventricular End Diastolic Pressure LVEDP: 18 mmHg LEFT MAIN: Angiographically normal LEFT ANTERIOR DESCENDING ARTERY: PROX LAD: Previously placed stent is patent MID LAD: Previously placed stent is patent DIAGONAL 1: Proximal - Mild luminal irregularities (small caliber vessel) CIRCUMFLEX ARTERY: PROX CIRC: Mild luminal irregularities MID CIRC: Mild luminal irregularities OM 2: Mid - Previously placed stent is patent OM 3: Proximal - Previously placed stent is patent RIGHT CORONARY ARTERY: small nondominant vessel: diffuse severe stenosis AORTIC ROOT: Angiographically normal Cardiac catheterization: 03-21-2021 CONCLUSIONS Elevated Left Ventricular End Diastolic Pressure Normal LV size, wall motion,and systolic function LVEF: by LV gram 60 % [place] Multivessel CAD LAD stent: proximal: patent LAD stent: mid: patent LCX OM2: stent: patent LCX OM3: stent: patent RECOMMENDATIONS Risk factor modification Medical therapy DESCRIPTION OF PROCEDURE The patient arrived to the procedure lab. The risks and benefits of the procedure as well as a full description of our services here and current unavailability of surgical backup were fully explained to the patient and/or their significant other prior to the catheterization. The Timeout was completed, verifying the correct patient and procedure. The patient's procedural site was prepped and draped in the usual fashion. Local anesthetic was given subcutaneously to right radial region with Lidocaine 2%. Using a modified Seldinger technique, arterial access was obtained via the right radial artery, a 6Fr sheath was inserted. Left Coronary Artery selective angiography was performed in multiple views using a 5 Fr. 4.0 [place] catheter. Right Coronary Artery selective angiography was then performed in multiple views using a 5 Fr. 4.0 [place] catheter. Left Ventriculography was performed in HASKINS projection using a 5 Fr. Pigtail catheter. LV to AO pullback pressures were then recorded.The arterial sheath was pulled and a TR Band was applied for hemostasis CORONARY ANGIOGRAPHY DOMINANCE: Left Dominant LEFT HEART ASSESSMENT Left Ventricular Ejection Fraction: by LV Gram 60 % Normal LV wall motion Elevated Left Ventricular End Diastolic Pressure LVEDP: 26 mmHg LEFT MAIN: Angiographically normal LEFT ANTERIOR DESCENDING ARTERY: PROX LAD: Previously placed stent is patent MID LAD: Previously placed stent is patent, Mild luminal irregularities DISTAL LAD: Mild luminal irregularities DIAGONAL 1: Proximal - Mild luminal irregularities (small caliber vessel) CIRCUMFLEX ARTERY: PROX CIRC: Mild luminal irregularities MID CIRC: diffuse: eccentric: 10 - 25 % Stenosis OM 1: Proximal - Mild luminal irregularities OM 2: Proximal - Previously placed stent is patent OM 3: Proximal - Previously placed stent is patent RIGHT CORONARY ARTERY: small nondominant vessel: diffuse severe stenosis AORTIC ROOT: Angiographically normal PCI: 10-10-18 LAD. 2.5x18 Resolute Drug Eluting stent Cardiac catheterization: 03/04/2019 DOMINANCE: Left Dominant LEFT HEART ASSESSMENT Left Ventricular Ejection Fraction: by LV Gram 55 % Inferior Mid Hypokinesis Elevated Left Ventricular End Diastolic Pressure LVEDP: 16 mmHg LEFT MAIN: Angiographically normal LEFT ANTERIOR DESCENDING ARTERY: PROX LAD: Previously placed stent is patent MID LAD: Previously placed stent is patent DIAGONAL 1: Proximal - Mild luminal irregularities CIRCUMFLEX ARTERY: Mild luminal irregularities OM 1: Proximal - Mild luminal irregularities OM 2: Proximal - eccentric: 75 % Stenosis, Mid - diffuse: irregular: 50 % Stenosis OM 3: Proximal - pre stent: 75 % Stenosis, Proximal - Previously placed stent is patent RIGHT CORONARY ARTERY: small nondominant: diffuse severe stenosis VALVE FINDINGS: Normal Aortic Valve function Normal Mitral Valve function AORTIC ROOT: Angiographically normal PCI 03/04/19: Successful PTCA/BEAU to proximal OM#2 with a 3.0 x 38 Promus Synergy, post dilated throughout with a 3.0 x 12 NC Balloon; 75%-->0%, no dissection. Pt had similar chest pain symptoms with stent deployment. Successful PTCA/BEAU proximal OM#4 with a 2.25 x 12 Promus Synergy, 75%-->0%, no dissection. Radiography Diagnostic Testing: Radiology Impression Knee X-Ray 02/27/22 01:07 IMPRESSION: No acute findings in the right knee. Right knee arthroplasty. Electronically Signed: Daniel Giraldo MD at 2:24 EDT , Knee X-Ray 02/27/22 01:09 IMPRESSION: No acute findings in the left knee. Left knee arthroplasty. Electronically Signed: Daniel Giraldo MD at 2:24 EDT , Chest X-Ray 02/27/22 02:23 IMPRESSION: No radiographic evidence of acute cardiopulmonary disease. Electronically Signed: Daniel Giraldo MD at 2:48 EDT ,
--- NOTE | 2022-02-27 20:43 | ECHOD_ITS ---
Reason For Study: MURMUR Procedure This was a 2D Doppler, Color Flow transthoracic echocardiogram. The exam was of adequate technical quality. Exam performed portable in patient room. The exam was abbreviated due to the COVID 19 protocol. Left Ventricle Normal LV size. Left ventricular systolic function is normal. The estimated ejection fraction is 65 %. Unable to assess diastolic dysfunction. No regional wall motion abnormalities noted. Right Ventricle Normal RV size. Normal systolic function. Atria Normal left atrium. Normal right atrium. No doppler evidence for ASD. Mitral Valve There is no mitral annular calcification. Normal mitral valve. Trivial mitral valve insufficiency. Tricuspid Valve Normal tricuspid valve. Trivial tricuspid valve insufficiency. Right ventricular systolic pressure estimated to be 33 mmHg. Aortic Valve Trisinus/trileaflet aortic valve. Mild focal aortic valve calcification. Pulmonic Valve The pulmonic valve is not well visualized. Great Vessels Normal sized aortic root. Pericardium/Pleural No pericardial effusion. MMode/2D Measurements & Calculations LVIDd: 5.4 cm IVSd: 0.85 cm Ao root diam: 3.1 cm LVIDs: 3.9 cm LVPWd: 0.96 cm FS: 28.3 % LAV(MOD-bp): 51.2 ml LVAd ap4: 33.5 cm2 SV(MOD-sp4): 72.8 ml LAV(MOD-bp) Indexed: 27.0 ml/m2 LVLd ap4: 7.5 cm LAV(MOD-sp2): 51.1 ml EDV(MOD-sp4): 123.7 ml LAV(MOD-sp4): 47.4 ml EDV(sp4-el): 126.6 ml LVAs ap4: 19.5 cm2 LVLs ap4: 6.5 cm ESV(MOD-sp4): 50.9 ml ESV(sp4-el): 49.9 ml EF(MOD-sp4): 58.9 % EF(sp4-el): 60.6 % SV(sp4-el): 76.7 ml LA A4 area: 18.0 cm2 LA dimension(2D): 3.6 cm RA A4 area: 14.4 cm2 Doppler Measurements & Calculations TR max jj: 275.8 cm/sec TR max P.4 mmHg ECHO/Echo Complete Interpretation Summary Left ventricular systolic function is normal. The estimated ejection fraction is 65 %. Trivial mitral valve insufficiency. Trivial tricuspid valve insufficiency. Mild focal aortic valve calcification. Right ventricular systolic pressure estimated to be 33 mmHg. Unable to assess diastolic dysfunction. Ordering Physician: Isac Davila Referring Physician: FENG KEVIN Performed By: Devora Bella RDCS
[2022-02-27] MEDS: 0.9% Saline Lock 10 ML Syringe IV ×2 (21:00→22:33)
[2022-02-27 22:00] LABS: RBC /Synovial Fluid 0.009 10^6/uL (0)
[2022-02-27 22:03] LABS: Lymph 2 %; Monocyte /Synovial Fluid 2 %; Neutrophil 94 % (0-25); Other Cell /Synovial Fluid 2 %
[2022-02-27 22:04] LABS: Lymph 8 %; Neutrophil 92 % (0-25); RBC /Synovial Fluid 0.012 10^6/uL (0)
[2022-02-27 22:08] LABS: AUTO B FLUID DILUENT BKGD CT WBC <0.1 RBC <0.01 (W<.1,R<.01); Color / Synovial Fluid Yellow (Pale Yellow); Source / Synovial Fluid RIGHT KNEE; Source- Body Fluid SYNOVIAL
[2022-02-27 22:09] LABS: AUTO B FLUID DILUENT BKGD CT WBC <0.1 RBC <0.01 (W<.1,R<.01); Appearance /Synovial Fluid Turbid (CLEAR); Body Fluid QC Type(s) BF1Q,BF2Q; Source- Body Fluid SYNOVIAL
[2022-02-27 22:10] LABS: Appearance /Synovial Fluid Turbid (CLEAR); Body Fluid QC Type(s) BF1Q,BF2Q; Color / Synovial Fluid Yellow (Pale Yellow); Source / Synovial Fluid LEFT KNEE
[2022-02-27] MEDS: Zolpidem Tartrate 5 MG Tablet PO (22:40)
[2022-02-27] MEDS: Pravastatin 80 MG Tablet PO (22:40)
[2022-02-28] VITALS (29 sets, daily range): BP systolic 115–155; BP diastolic 53–113; PULSE 77–96; RESP 14–34; TEMP 36.1–37.1; O2SAT 90–98; BMI 32.1
[2022-02-28 06:45] LABS: Absolute Lymphocyte Count 1.57 X10^3/uL (0.83-4.51); Absolute Neutrophil Count 5.7 X10^3/uL (2.0-7.7); Basophil# 0.02 X10^3/uL; Basophil% 0.3 % (0-1); Eosinophil# 0.12 X10^3/uL; Eosinophils% 1.5 % (0-5); Hematocrit 30.6 % (37-47); Hemoglobin 9.9 g/dL (12.0-15.0); Lymphocyte # 1.57 X10^3/ul (0.83-4.51); Lymphocyte % 19.6 % (19-41); Mean Corp Hgb Conc 32.4 g/dL (32-36); Mean Corpuscular Volume 86.4 fL (81-99); Mean Platelet Vol. 9.9 fl (6.2-12.0); Monocyte# 0.56 X10^3/uL; NRBC Flagged by Analyzer 0 % (0-5); Neutrophil # 5.68 X10^3/uL (2.7-7.7); Neutrophil % 71.1 % (47-70); Platelet Count 207 K/mm3 (150-450); RBC Distribution Width CV 14.7 % (11.6-14.6); RBC Distribution Width SD 47.3 fl (35.1-43.9); Red Blood Count 3.54 M/mm3 (4.2-5.4)
[2022-02-28 07:07] LABS: Anion Gap 6 (5-15); BUN 17 mg/dL (7-18); BUN/Creat Ratio 27.2 RATIO (10-20); Calcium,Total 8.7 mg/dL (8.5-10.1); Chloride 109 mmol/L (98-107); Creatinine, Serum 0.63 mg/dL (0.55-1.02); EST Glomerular Filtration Rate 102 mL/min (>60); Est Glom Filt Rate - Afr Amer 123 mL/min (>60); Estimated Creatinine Clearance 78.93 ml/min; Glucose 165 mg/dL (74-106); Potassium 3.9 mmol/L (3.5-5.1); Sodium Level 138 mmol/L (136-145)
--- NOTE | 2022-02-28 07:38 | PN.HOSP_ITS ---
Subjective Subjective Bilateral knee aspiration performed by Dr. Vernon the day prior came back highly suspicious for septic arthritis. Plan is for patient to undergo irrigation debridement polyethylene exchange of both knees. Consult was also placed to cardiology Dr. Davila given patient underlying history of coronary artery disease with previous stent placement Objective Data Objective Data Vital Signs: Vital Signs Temp Pulse Resp BP Pulse Ox 97.0 F L 80 16 133/73 H 97 02/28/22 04:20 02/28/22 04:20 02/28/22 04:20 02/28/22 04:20 02/28/22 04:20 Oxygen Delivery Method Room Air Weight: 84.8 kg Body Mass Index (BMI) 32.1 Intake & Output: Intake and Output for Last 24 Hours 02/26/22 02/27/22 02/28/22 23:59 23:59 23:59 Intake Total 2099 / 2099 Output Total 50 / 50 Balance 2049 / 2049 Lab / Micro Data Result Diagrams: 02/28/22 06:36 02/28/22 06:36 Labs: Laboratory Results - last 24 hr 02/27/22 04:45: COVID-19 (BLOSSOM) Not Detected 02/27/22 06:30: ESR 53 H 02/27/22 06:30: Hemoglobin A1c 7.7 H 02/27/22 : Fluid Crystals SEE PATH REV, Fluid Crystal Source SYNOVIAL, Fl Crystal Path Review Will follow, Synovial Source LEFT KNEE, Synovial Color Yellow, Synovial Appearance Turbid, Synovial WBC 58.4400 H, Synovial RBC 0.009 H , Synovial Tot Cell Ct 58.6100 H, Synov Polynuclear WBCs 55.143, Synov Mononuclear WBCs 5.290, Synovial Neutrophils 94 H, Synovial Lymphocytes 2, Synovial Monocytes 2, Synovial Other Cells 2, Synovial Polynuclear % 91.2, Synovial Mononuclear % 8.8, Synovial Path Comment May follow 02/27/22 : Fluid Crystals SEE PATH REV, Fluid Crystal Source SYNOVIAL, Fl Crystal Path Review Will follow, Synovial Source RIGHT KNEE, Synovial Color Yellow, Synovial Appearance Turbid, Synovial WBC 111.2800 H, Synovial RBC 0.012 H, Synovial Tot Cell Ct 111.6200 H, Synov Polynuclear WBCs 77.995, Synov Mononuclear WBCs 6.727, Synovial Neutrophils 92 H, Synovial Lymphocytes 8, Synovial Polynuclear % 92.0, Synovial Mononuclear % 8.0, Synovial Path Comment May follow 02/28/22 06:36: WBC 8.0, RBC 3.54 L, Hgb 9.9 L, Hct 30.6 L, MCV 86.4, MCH 28.0, MCHC 32.4, RDW Std Deviation 47.3 H, RDW Coeff of Jossy 14.7 H, Plt Count 207, MPV 9.9, Immature Gran % (Auto) 0.500, Neut % (Auto) 71.1 H, Lymph % (Auto) 19.6, [place] % (Auto) 7.0, Eos % (Auto) 1.5, Baso % (Auto) 0.3, Absolute Neuts (auto) 5.7, Absolute Lymphs (auto) 1.57, Nucleated RBC % 0 02/28/22 06:36: Sodium 138, Potassium 3.9, Chloride 109 H, Carbon Dioxide 23.0, Anion Gap 6, BUN 17, Creatinine 0.63, Estim Creat Clear Calc 78.93, Est GFR (MDRD) Af Amer 123, Est GFR (MDRD) Non-Af 102, BUN/Creatinine Ratio 27.2 H, Glucose 165 H, Calcium 8.7 Micro: Microbiology 02/27/22 Unknown Fluid - Synovial (joint) Gram Stain - Preliminary 02/27/22 Unknown Fluid - Synovial (joint) Gram Stain - Preliminary 02/27/22 04:45 Mucosa - Nasopharyngeal Respiratory Panel (PCR) - Final 02/27/22 01:10 Nasal Secretion SARS-CoV-2 & FLU Antigen (Rapid) - Final SARS-CoV-2 (COVID 19) Influenzae A Physical Exam Narrative GENERAL: cooperative HEENT: Atraumatic; EYES; Anicteric, Normal Conjunctiva NECK; supple, normal thyroid, RESPIRATORY: Diminished to auscultation CARDIOVASCULAR: Regular S1 S2, GI: soft, normoactive bowel sounds, : No Renal angle tenderness; EXTREMITIES: No edema, no clubbing, MUSCULOSKELETAL: Swelling involving both knees with some warmth NEURO: Awake; no lateralizing signs. SKIN: No Rash PSYCH; Flat affect Assessment & Plan Assessment/Plan (1) Osteoarthritis: (2) Asthma: (3) GERD (gastroesophageal reflux disease): (4) Depression: (5) Sleep apnea: (6) Hyperlipemia, mixed: (7) Presence of stent in coronary artery: (8) Knee pain: PLAN: Patient is a 61-year-old lady admitted with bilateral knee pain with swelling and inability to walk. Imaging studies obtained of both knees demonstrated no acute findings but history of previous bilateral knee arthroplasty. Patient also tested positive for COVID-19 using a rapid test as well as influenza A. PCR however came back negative for both 1. Septic arthritis involving both knees in a patient with previous bilateral knee replacement . Patient presented with significant swelling and pain involving both knees. Consult was placed to Dr. Vernon with orthopedic surgery ? 02/28/2022 :Bilateral knee aspiration performed by Dr. Vernon the day prior came back highly suspicious for septic arthritis. Plan is for patient to undergo irrigation debridement polyethylene exchange of both knees. Consult was also placed to cardiology Dr. Davila given patient underlying history of coronary artery disease with previous stent placemen 2. Inconclusive influenza A and COVID 19 ? Patient PCR came back negative for COVID 19 patient is currently in isolation without symptoms. Isolation subsequently discontinued 3. Hypertension - Blood pressure controlled, home medications continued with dose adjustment as needed 4. Dyslipidemia -Patient is on statin therapy, continued at home dose 5. Tobacco dependence - Counseled on cessation, offered nicotine patch for tobacco cravings 6. Depression ? Patient is a bupropion discontinued 7. Coronary artery disease with previous history of stent to proximal OM and LAD ? On recommended medications including beta-blockers antiplatelet therapy and statin therapy 8. Obstructive sleep apnea ? Currently not on any PAP therapy 9. GERD ? On PPI 10. DVT prophylaxis ? Lovenox Charges/Coding Visit Charges Inpatient E&M: 55246 Subs Hosp L3
[2022-02-28] MEDS: Metoprolol Tartrate 25 MG Tablet PO ×2 (08:07→22:53)
[2022-02-28] MEDS: HYDROmorphone 0.5 MG/0.5 ML SYRINGE IV ×2 (08:08→20:46)
[2022-02-28] MEDS: Lactated Ringers 1,000 ML 15 ML IV ×2 (12:00→18:11)
--- NOTE | 2022-02-28 12:04 | PN.ORTHO_ITS ---
Subjective Subjective No acute events overnight. Patient aspiration came back left knee 58,000 with 91% PMNs consistent with infectious etiology right knee 111,092% PMNs consistent with infectious etiology. Patient has been cleared by medicine. Plan is to proceed as discussed in yesterday's consultation. Patient is agreeable to proc eed today. Type and screen was sent. Current hemoglobin is 9.9. Patient appears to have pre-existing anemia which is expected to worsen after surgery due to anticipated blood loss. We will continue to monitor and transfuse appropriately if necessary. Objective Data Objective Data Vital Signs: Vital Signs Temp Pulse Resp BP Pulse Ox 97.6 F L 96 18 115/63 98 02/28/22 09:32 02/28/22 09:32 02/28/22 09:32 02/28/22 09:32 02/28/22 09:32 Oxygen Delivery Method Room Air Weight: 186 lb 15.232 oz Body Mass Index (BMI) 32.1 Intake & Output: Intake and Output for Last 24 Hours 02/26/22 02/27/22 02/28/22 23:59 23:59 23:59 Intake Total 2099 / 2099 Output Total 50 / 50 Balance 2049 / 2049 Lab / Micro Data Result Diagrams: 02/28/22 06:36 02/28/22 06:36 Labs: Laboratory Results - last 24 hr 02/27/22 06:30: Hemoglobin A1c 7.7 H 02/27/22 : Fluid Crystals SEE PATH REV, Fluid Crystal Source SYNOVIAL, Fl Crystal Path Review Will follow, Synovial Source LEFT KNEE, Synovial Color Yellow, Synovial Appearance Turbid, Synovial WBC 58.4400 H, Synovial RBC 0.009 H , Synovial Tot Cell Ct 58.6100 H, Synov Polynuclear WBCs 55.143, Synov Mononuclear WBCs 5.290, Synovial Neutrophils 94 H, Synovial Lymphocytes 2, Synovial Monocytes 2, Synovial Other Cells 2, Synovial Polynuclear % 91.2, Synovial Mononuclear % 8.8, Synovial Path Comment May follow 02/27/22 : Fluid Crystals SEE PATH REV, Fluid Crystal Source SYNOVIAL, Fl Crystal Path Review Will follow, Synovial Source RIGHT KNEE, Synovial Color Yellow, Synovial Appearance Turbid, Synovial WBC 111.2800 H, Synovial RBC 0.012 H, Synovial Tot Cell Ct 111.6200 H, Synov Polynuclear WBCs 77.995, Synov Mononuclear WBCs 6.727, Synovial Neutrophils 92 H, Synovial Lymphocytes 8, Synovial Polynuclear % 92.0, Synovial Mononuclear % 8.0, Synovial Path Comment May follow 02/28/22 06:36: WBC 8.0, RBC 3.54 L, Hgb 9.9 L, Hct 30.6 L, MCV 86.4, MCH 28.0, MCHC 32.4, RDW Std Deviation 47.3 H, RDW Coeff of Jossy 14.7 H, Plt Count 207, MPV 9.9, Immature Gran % (Auto) 0.500, Neut % (Auto) 71.1 H, Lymph % (Auto) 19.6, [place] % (Auto) 7.0, Eos % (Auto) 1.5, Baso % (Auto) 0.3, Absolute Neuts (auto) 5.7, Absolute Lymphs (auto) 1.57, Nucleated RBC % 0 02/28/22 06:36: Sodium 138, Potassium 3.9, Chloride 109 H, Carbon Dioxide 23.0, Anion Gap 6, BUN 17, Creatinine 0.63, Estim Creat Clear Calc 78.93, Est GFR (MDRD) Af Amer 123, Est GFR (MDRD) Non-Af 102, BUN/Creatinine Ratio 27.2 H, Glu cose 165 H, Calcium 8.7 Micro: Microbiology 02/27/22 Unknown Fluid - Synovial (joint) Gram Stain - Final 02/27/22 Unknown Fluid - Synovial (joint) Body Fluid Culture - Preliminary No growth-Final to follow 02/27/22 01:30 Urine, Clean Catch Urine Culture - Preliminary Culture exhibits no growth. 02/27/22 Unknown Fluid - Synovial (joint) Gram Stain - Final 02/27/22 04:45 Mucosa - Nasopharyngeal Respiratory Panel (PCR) - Final 02/27/22 01:10 Nasal Secretion SARS-CoV-2 & FLU Antigen (Rapid) - Final SARS-CoV-2 (COVID 19) Influenzae A Radiography Diagnostic Testing: Radiology Impression Echocardiogram 02/27/22 20:43 Interpretation Summary Left ventricular systolic function is normal. The estimated ejection fraction is 65 %. Trivial mitral valve insufficiency. Trivial tricuspid valve insufficiency. Mild focal aortic valve calcification. Right ventricular systolic pressure estimated to be 33 mmHg. Unable to assess diastolic dysfunction. Ordering Physician: Isac Davila Referring Physician: FENG KEVIN Performed By: Devora Bella RDCS
--- NOTE | 2022-02-28 12:27 | PCM.PN.CARD ---
Subjective Subjective The patient was evaluated earlier this day. She had no new acute cardiovascular complaints. Objective Data Vital Signs: Vital Signs Temp Pulse Resp BP Pulse Ox 97.6 F L 96 18 115/63 98 02/28/22 09:32 02/28/22 09:32 02/28/22 09:32 02/28/22 09:32 02/28/22 09:32 Oxygen Delivery Method Room Air Weight: 186 lb 15.232 oz Body Mass Index (BMI) 32.1 Intake & Output: Intake and Output for Last 24 Hours 02/26/22 02/27/22 02/28/22 23:59 23:59 23:59 Intake Total 2099 / 2099 Output Total 50 / 50 Balance 2049 / 2049 Lab / Micro Data Result Diagrams: 02/28/22 06:36 02/28/22 06:36 Labs: Laboratory Results - last 24 hr 02/27/22 06:30: Hemoglobin A1c 7.7 H 02/27/22 : Fluid Crystals SEE PATH REV, Fluid Crystal Source SYNOVIAL, Fl Crystal Path Review Will follow, Synovial Source LEFT KNEE, Synovial Color Yellow, Synovial Appearance Turbid, Synovial WBC 58.4400 H, Synovial RBC 0.009 H, Synovial Tot Cell Ct 58.6100 H, Synov Polynuclear WBCs 55.143, Synov Mononuclear WBCs 5.290, Synovial Neutrophils 94 H, Synovial Lymphocytes 2, Synovial Monocytes 2, Synovial Other Cells 2, Synovial Polynuclear % 91.2, Synovial Mononuclear % 8.8, Synovial Path Comment May follow 02/27/22 : Fluid Crystals SEE PATH REV, Fluid Crystal Source SYNOVIAL, Fl Crystal Path Review Will follow, Synovial Source RIGHT KNEE, Synovial Color Yellow, Synovial Appearance Turbid, Synovial WBC 111.2800 H, Synovial RBC 0.012 H, Synovial Tot Cell Ct 111.6200 H, Synov Polynuclear WBCs 77.995, Synov Mononuclear WBCs 6.727, Synovial Neutrophils 92 H, Synovial Lymphocytes 8, Synovial Polynuclear % 92.0, Synovial Mononuclear % 8.0, Synovial Path Comment May follow 02/28/22 06:36: WBC 8.0, RBC 3.54 L, Hgb 9.9 L, Hct 30.6 L, MCV 86.4, MCH 28.0, MCHC 32.4, RDW Std Deviation 47.3 H, RDW Coeff of Jossy 14.7 H, Plt Count 207, MPV 9.9, Immature Gran % (Auto) 0.500, Neut % (Auto) 71.1 H, Lymph % (Auto) 19.6, [place] % (Auto) 7.0, Eos % (Auto) 1.5, Baso % (Auto) 0.3, Absolute Neuts (auto) 5.7, Absolute Lymphs (auto) 1.57, Nucleated RBC % 0 02/28/22 06:36: Sodium 138, Potassium 3.9, Chloride 109 H, Carbon Dioxide 23.0, Anion Gap 6, BUN 17, Creatinine 0.63, Estim Creat Clear Calc 78.93, Est GFR (MDRD) Af Amer 123, Est GFR (MDRD) Non-Af 102, BUN/Creatinine Ratio 27.2 H, Glucose 165 H, Calcium 8.7 Micro: Microbiology 02/27/22 Unknown Fluid - Synovial (joint) Gram Stain - Final 02/27/22 Unknown Fluid - Synovial (joint) Body Fluid Culture - Preliminary No growth-Final to follow 02/27/22 01:30 Urine, Clean Catch Urine Culture - Preliminary Culture exhibits no growth. 02/27/22 Unknown Fluid - Synovial (joint) Gram Stain - Final Cardiology Labs/Tests 02/27/22 06:30: Hemoglobin A1c 7.7 H 02/28/22 06:36: WBC 8.0, RBC 3.54 L, Hgb 9.9 L, Hct 30.6 L, MCV 86.4, MCH 28.0, MCHC 32.4, Plt Count 207, MPV 9.9, Immature Gran % (Auto) 0.500, Neut % (Auto) 71.1 H, Lymph % (Auto) 19.6, [place] % (Auto) 7.0, Eos % (Auto) 1.5, Baso % (Auto) 0.3, Absolute Neuts (auto) 5.7, Nucleated RBC % 0 02/28/22 06:36: Sodium 138, Potassium 3.9, Chloride 109 H, Carbon Dioxide 23.0, Anion Gap 6, BUN 17, Creatinine 0.63, Est GFR (MDRD) Af Amer 123, Est GFR (MDRD) Non-Af 102, BUN/Creatinine Ratio 27.2 H, Glucose 165 H, Calcium 8.7 Rhythm: Sinus rhythm Radiography Diagnostic Testing: Radiology Impression Echocardiogram 02/27/22 20:43 Interpretation Summary Left ventricular systolic function is normal. The estimated ejection fraction is 65 %. Trivial mitral valve insufficiency. Trivial tricuspid valve insufficiency. Mild focal aortic valve calcification. Right ventricular systolic pressure estimated to be 33 mmHg. Unable to assess diastolic dysfunction. Ordering Physician: Isac Davila Referring Physician: FENG KEVIN Performed By: Devora Bella RDCS Physical Exam Const alert, oriented x3 and no apparent distress Orientation / Consciousness: awake HEENT normocephalic, head/scalp atraumatic and hearing grossly normal bilaterally Eyes PERRL, EOMs intact bilaterally and conjunctivae normal Neck full ROM, supple and no JVD Resp clear to auscultation bilaterally Cardio regular rate, regular rhythm, S1 normal heart sound and S2 normal heart sound Heart Sounds: murmur systolic II/ soft mid left sternal border, LVOT and sternal notch GI normal to inspection, nondistended, normoactive bowel sounds Extremity no pedal edema Neuro oriented x3, moves all extremities, no focal motor deficits and no sensory deficits noted Psych mental status grossly normal Assessment & Plan Assessment/Plan (1) Atherosclerosis of [place] coronary artery of [place] heart without angina pectoris: PLAN: At the present time she appears to be without any acute symptoms with respect to her underlying CAD status. She should continue risk factor modification medical therapy as deemed appropriate. (2) Presence of stent in coronary artery: PLAN: She does have a history of PCI. She has undergone noninvasive and invasive valuation in 2020 is noted. At the moment she will continue her risk factor modification medical therapy. (3) Hyperlipemia, mixed: PLAN: She has history of hyperlipidemia. She should continue medical management. (4) Essential hypertension: PLAN: She has a history of hypertension. Her blood pressure will need to be monitored and she should continue medical therapy. (5) Cardiac murmur: PLAN: She has a cardiac murmur. Based upon her follow-up transthoracic echocardiogram this appears to be related to her underlying aortic valve findings with respect to her mild focal calcification as she does not appear to have other hemodynamically significant valvular heart disease. (6) Preoperative cardiovascular examination: PLAN: From a preoperative standpoint she should continue to be monitored. She should continue her medical therapy as best as possible in and around the time of her surgery. An attempt should be made to avoid significant fluctuations in her vital signs and her volume status during and following surgery. Addt'l Comments This note was generated using a voice recognition system and there may be incorrect words, spelling or punctuation that were not noted when reviewing the office note prior to saving.
[2022-02-28] MEDS: Vancomycin IV 1,000 MG/20 ML Vial 2000 MG OPERA.SITE (13:35)
[2022-02-28] MEDS: Cefazolin 2 GM in 0.9% Normal Saline 100 ML IV (13:50)
--- NOTE | 2022-02-28 13:50 | OP.PCM_ITS ---
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 Complete synovectomy. Implants well fixed. Surgeon: Gilberto Vernon casting carrier: Anne-Marie Roper Type of Anesthesia: General Anesthesiologist: Cory Deshpande Special Medications: 2 g of Ancef and 15 mg/kg of vancomycin given IV after first set of cultures obtained. Specimen's removed: 3 separate specimens were sent to microbiology from both knees Estimated Blood Loss (mL): 100 Fluids Replaced: 1600 ml crystalloid Description of Procedure: 61 yo F history of B TKA in left 2012, right 2014 presents with 72 hours of pain and swelling. Patient has a history of sinus infection 1 week ago treated with antibiotics with symptoms of malaise prior to antibiotics. Reviewed options were discussed the patient. Based on acuity of the symptoms irrigation debridement with polyethylene exchange is recommended. Risks and benefits of the procedure were discussed with the patient including but not limited to blood loss, DVTs, PEs, neurovascular damage, infection, general risk of anesthesia including loss of life. Demonstrated understanding and was able to sign informed consent. On the date of procedure patient's bilateral lower extremities were marked in the preoperative area. The patient was then taken back to the operating room w here the patient was placed on the table in the supine position. All bony prominences were identified a well-padded. Anesthesia assumed control of the C- spine and airway and remained controlled throughout the remainder of the procedure. It was agreed preoperatively we would proceed with the right knee first. A tourniquet was placed on the right thigh and the leg was prepped in a sterile fashion. The surgeon then scrubbed at this time .Upon reentering the room right lower extremity was draped in a standard orthopedic fashion. A timeout was then called and everyone agreed upon the side, the site, the procedure to be performed, patient's identity and antibiotics given. A midline skin incision was made and sharp dissection was taken down through skin subcutaneous tissue and fat. Appropriate flaps were elevated medially and laterally. His arthrotomy was identified and the standard medial parapatellar incision was made and the patella was subluxed laterally. The standard deep MCL release was done. At this point an aggressive synovectomy commenced. Our attention was first turned towards the subpatellar pouch and all suspicious synovium and tissues were debrided. We then directed our attention towards medial lateral gutters were these tissues were aggressively debrided. Knee was then flexed up the polyethylene was removed. Once polyethylene was removed we did the remainder of the synovium in the medial and lateral gutters and along the lateral structures and MCL. We then debrided the posterior knee. Knee was flexed up and culture was taken from the femoral notch. And also there was a membrane beneath the tibial baseplate that was removed and sent for culture. He had completed our synovectomy and were happy with the joint. We then used a chlorahexadine scrub sponge and physically scrub the metal implants using a scrub sponge but nothing abrasive. We also scrubbed the remainder of the wound with chlorhexidine. 6 L of normal saline were then irrigated throughout the wound with low-pressure lavage and the wound was once again explored. After this a trial implant was placed and Betadine was left to soak in the knee. All involved participants then regowned and and gloved and then draped the leg sterilely once more. All remaining tissue that was suspicious was seen in the wound was once again irrigated with normal saline. [place] CS 11 mm polyethylene was then opened and put back into place after appropriate trialing. Tourniquet was let down and hemostasis was obtained as well as possible. 1 g of vancomycin powder were placed in the wound/joint. Once the final components were placed the wound was copiously irrigated with normal saline solution. The wound was closed in a layer wolff fashion using #1 vicryl interrupted sutures for the arthrotomy, 2-0 interrupted Vicryl for the subcuticular layer and jasen for final skin closure. A sterile compressive dressing was then placed. After this was done we carefully remove the drapes. Our attention was then directed towards the left side. A tourniquet was placed on the left thigh and the leg was prepped in a sterile fashion. The surgeon then scrubbed at this time. Upon reentering the room left lower extremity was draped in a standard orthopedic fashion. A timeout was then called and everyone agreed upon the side, the site, the procedure to be performed, patient's identity and antibiotics given. A midline skin incision was made and sharp dissection was taken down through skin subcutaneous tissue and fat. Appropriate flaps were elevated medially and laterally. His arthrotomy was identified and the standard medial parapatellar incision was made and the patella was subluxed laterally. The standard deep MCL release was done. At this point an aggressive synovectomy commenced. Our attention was first turned towards the subpatellar pouch and all suspicious synovium and tissues were debrided. We then directed our attention towards medial lateral gutters were these tissues were aggressively debrided. Knee was then flexed up the polyethylene was removed. Once polyethylene was removed we did the remainder of the synovium in the medial and lateral gutters and along the lateral structures and MCL. We then debrided the posterior knee. Knee was flexed up and culture was taken from the femoral notch. And also there was a membrane beneath the tibial baseplate that was removed and sent for culture. He had completed our synovectomy and were happy with the joint. We then used a chlorahexadine scrub sponge and physically scrub the metal implants using a scrub sponge but nothing abrasive. We also scrubbed the remainder of the wound with chlorhexidine. 6 L of normal saline were then irrigated throughout the wound with low-pressure lavage and the wound was once again explored. After this was completed the wound was lavaged with Betadine which was left in the wound. All parties and participants then regowned and gloved. The leg was then redraped with a fresh e xtremity drape. All remaining tissue that was suspicious was seen in the wound was once again irrigated with normal saline. 10 mm Netacuy sigma PS polyethylene was then opened and put back into place after appropriate trialing. Tourniquet was let down and hemostasis was obtained as well as possible. 1 g of vancomycin powder were placed in the wound/joint. Once the final components were placed the wound was copiously irrigated with normal saline solution. The wound was closed in a layer wolff fashion using #1 vicryl interrupted sutures for the arthrotomy, 2-0 interrupted Vicryl for the subcuticular layer and jasen for final skin closure. A sterile compressive dressing was then placed. The patient was then awakened from anesthesia, transferred to the [facility] and transferred to the PACU for recovery. Post op plan Patient will be weightbearing as tolerated. Activity as tolerated. We will continue Ancef and vancomycin until infectious disease can adjust antibiotics. Patient will likely require minimum of 6 weeks IV antibiotics followed by up to 1 year of oral antibiotic treatment. Xarelto for DVT prophylaxis secondary to patient's bilateral procedures. Jasen will come out 14 days postoperatively, follow-up in office in 2 weeks. Grafts/Implants Used: 10 mm DePuy Sigma size 3 PS polyethylene, 11 mm size 4 [place] triathlon CS Complications no Intraoperative complications Admit VTE Documentation VTE Present on Admission: No VTE Mechan Device Prophylaxis: SCD's and Thigh High ANASTASIA Hose VTE Pharm Prophylaxis ordered?: Yes
--- NOTE | 2022-02-28 16:17 | RAD_ITS ---
STUDY: X-RAY - RIGHT KNEE REASON FOR EXAM: Female, 61 years old. post op -- AP and Lateral xray of operative knee in PACU TECHNIQUE: 2 view(s) of the knee. COMPARISON: 02/27/2022 FINDINGS: Normal visualized distal femur. Normal visualized proximal tibia and fibula. Normal proximal tibiofibular articulation. Status post total knee arthroplasty. Prosthesis appears located.. Skin jasen in the midline and simultaneous emphysema consistent with recent surgery. RAD/Knee 1 or 2 Views IMPRESSION: Recent knee surgery. Electronically Signed: Jesus Allison MD at 16:43 EDT ,
--- NOTE | 2022-02-28 16:20 | RAD_ITS ---
STUDY: X-RAY - LEFT KNEE REASON FOR EXAM: Female, 61 years old. post op -- AP and Lateral xray of operative knee in PACU TECHNIQUE: 2 view(s) of the knee. COMPARISON: 02/27/2022 FINDINGS: Normal visualized distal femur. Normal visualized proximal tibia and fibula. Normal proximal tibiofibular articulation. Status post total knee arthroplasty. The prosthesis appears located.. Skin jasen in the midline and subcutaneous emphysema consistent with recent surgery. RAD/Knee 1 or 2 Views IMPRESSION: Recent knee surgery. Electronically Signed: Jesus Allison MD at 16:44 EDT ,
[2022-02-28] MEDS: Ipratropium/Albuterol Sulfate 3 ML AMPUL.NEB INHALATION (17:04)
[2022-02-28 18:00] LABS: Allen Test Positive; Base Excess -5 mmol/L (-2 to +2); Bicarbonate 20.6 mmol/L (22-26); Blood Gas Specimen Type ART; FI02 50; O2 Delivery Device Venti Mask; PO2 55 mmHG (75-100); SITE R Radial; SO2 88 % (95-99); Total Carbon Dioxide 22 mmol/L; pH 7.38 (7.35-7.45)
--- NOTE | 2022-02-28 18:22 | PCM.HOSP.N ---
Hospitalist Note Hospital medicine service was contacted to that this patient after being extubated became hypoxic. Review of patient's medical history determined that patient had obstructive sleep apnea, subsequently directed PACU staff to place patient on BiPAP to maintain oxygen saturations. Also to PACU staff to obtain ABG, which was unremarkable upon my evaluation. Upon my evaluation in the PACU, patient's oxygen saturations were variable but were maintaining above 90%. Patient did not appear acutely tachypneic or in respiratory distress. Advised PACU staff to maintain patient on BiPAP and return to PCU per PACU postoperative protocol. Discussed case with both Dr. Koch and Dr. Miller, who is patient's attending physician. Patient seen by Lucian Perez PA-C, under the supervision of Dr. Koch.
[2022-02-28 19:01] LABS: Bedside Glucose 323 mg/dL (74-106)
[2022-02-28] MEDS: Insulin Lispro 100 UNIT/ML INSULN.PEN SC (19:13)
[2022-02-28 19:46] LABS: Bedside Glucose 302 mg/dL (74-106)
--- NOTE | 2022-02-28 19:49 | SUR.PHASEI ---
[facility] CALLED BY THIS NURSE TO TELL THEM THAT PATIENT IS READY TO GO UP TO THE FLOOR AND THE BIPAP NEEDS TAKEN UP. THIS NURSE ASKED IF IT IS OK TO TRIAL HER OFF OF THE BIPAP AND SHE SAID YES. PATIENT DROPPED TO 90% ON ROOM AIR AND I HAD HER DO THE INCENTIVE SPIROMETRY AND SHE IS NOW SATING 93-95%. SHE DROPPED TO 88% SO RESPIRATORY SAID TO PUT HER ON 5L NC AND THEY WILL TAKE THE BIPAP OVER TO HER ROOM.
--- NOTE | 2022-02-28 20:06 | SUR.PHASEI ---
ADRIA BANEGAS CAME AND GOT PATIENT. PATIENT ON O2 6L NC O2 TANK AND ON TELE MONITOR.
[2022-02-28] MEDS: 0.9% Saline Lock 10 ML Syringe IV (20:47)
[2022-02-28] MEDS: Zolpidem Tartrate 5 MG Tablet PO (22:52)
[2022-02-28] MEDS: Acetaminophen 500 MG Tablet 1000 MG PO (22:53)
[2022-02-28] MEDS: metFORMIN HCl 1,000 MG Tablet 1000 MG PO (22:53)
[2022-02-28] MEDS: Senna/Docusate Sodium 1 Tablet 2 TABLET PO (22:53)
[2022-02-28] MEDS: Pravastatin 80 MG Tablet PO (22:53)
[2022-02-28] MEDS: Cefazolin 1 GM/50 ML BAG IV (22:55)
[2022-02-28 23:21] LABS: Bedside Glucose 269 mg/dL (74-106)
[2022-03-01] VITALS (16 sets, daily range): BP systolic 121–148; BP diastolic 46–69; PULSE 67–85; RESP 14–20; TEMP 36.1–36.9; O2SAT 88–97
[2022-03-01] MEDS: 0.9% Saline Lock 10 ML Syringe IV ×3 (04:23→12:54)
[2022-03-01] MEDS: HYDROmorphone 0.5 MG/0.5 ML SYRINGE IV ×4 (04:23→16:58)
[2022-03-01] MEDS: Acetaminophen 500 MG Tablet 1000 MG PO ×3 (05:29→20:38)
[2022-03-01] MEDS: Rivaroxaban 10 MG Tablet PO (05:29)
[2022-03-01] MEDS: Cefazolin 1 GM/50 ML BAG IV (05:29)
[2022-03-01] MEDS: metFORMIN HCl 1,000 MG Tablet 1000 MG PO ×2 (08:44→16:56)
[2022-03-01] MEDS: Clopidogrel Bisulfate 75 MG Tablet PO (08:44)
[2022-03-01] MEDS: Pantoprazole Sodium 40 MG Tablet PO (08:44)
[2022-03-01] MEDS: Aspirin E.C. 81 MG Tablet PO (08:44)
[2022-03-01] MEDS: buPROPion (XL) 150 MG TABLET.XL PO (08:44)
[2022-03-01] MEDS: Cholecalciferol (Vit D3) 125 MCG CAPSULE (5,000 UNITS) PO (08:44)
[2022-03-01] MEDS: Metoprolol Tartrate 25 MG Tablet PO ×2 (08:44→20:38)
[2022-03-01] MEDS: Senna/Docusate Sodium 1 Tablet 2 TABLET PO ×2 (08:44→20:38)
[2022-03-01] MEDS: predniSONE 20 MG Tablet 40 MG PO (08:44)
[2022-03-01 08:56] LABS: Bedside Glucose 157 mg/dL (74-106)
[2022-03-01 08:59] LABS: Pathologist Review Reviewed
--- NOTE | 2022-03-01 09:44 | PCM.PN.CARD ---
Subjective Subjective The patient is status post her bilateral knee orthopedic surgery procedure. She denies any concerning chest discomfort or difficulty breathing at this time. Objective Data Vital Signs: Vital Signs Temp Pulse Resp BP Pulse Ox 98.4 F 72 16 136/59 H 93 03/01/22 08:30 03/01/22 08:44 03/01/22 08:30 03/01/22 08:30 03/01/22 08:30 Oxygen Flow Rate (L/min) 2 Oxygen Delivery Method Room Air Weight: 186 lb 15.232 oz Body Mass Index (BMI) 32.1 Intake & Output: Intake and Output for Last 24 Hours 02/27/22 02/28/22 03/01/22 23:59 23:59 23:59 Intake Total 2099 / 2099 1655 / 1775 545 / 545 Output Total 50 / 50 Balance 2049 1655 / 1775 545 / 545 Lab / Micro Data Result Diagrams: 02/28/22 06:36 02/28/22 06:36 Labs: Laboratory Results - last 24 hr 02/27/22 : Fl Crystal Path Review Reviewed 02/27/22 : Fl Crystal Path Review Reviewed 02/28/22 12:35: Blood Type A NEGATIVE, Antibody Screen NEGATIVE 02/28/22 18:55: POC Glucose 323 H 02/28/22 19:43: POC Glucose 302 H 02/28/22 22:52: POC Glucose 269 H 03/01/22 08:37: POC Glucose 157 H Micro: Microbiology 02/27/22 Unknown Fluid - Synovial (joint) Gram Stain - Final 02/27/22 Unknown Fluid - Synovial (joint) Body Fluid Culture - Preliminary No growth-Final to follow 02/27/22 01:30 Urine, Clean Catch Urine Culture - Final Culture exhibits no growth. 02/27/22 01:38 Blood Culture (Wb) - Anticubital Right Blood Culture - Preliminary No growth in 48 hours. 02/27/22 01:14 Blood Culture (Wb) - Anticubital Left Blood Culture - Preliminary No growth in 48 hours. 02/27/22 Unknown Fluid - Synovial (joint) Gram Stain - Final 02/27/22 Unknown Fluid - Synovial (joint) Body Fluid Culture - Preliminary No growth-Final to follow ABG Data ABG results: ABG 02/28/22 17:56 Specimen Type ART Sample Site R Radial pH 7.38 Bicarbonate Actual 20.6 L Total CO2 22 Base Excess -5 L O2 Saturation 88 L O2 % 50 ABG pCO2 35.0 ABG pO2 55 L Lewis Test Positive O2 Delivery Device Venti Mask Cardiology Labs/Tests 02/28/22 17:56: pH 7.38, Bicarbonate Actual 20.6 L, Base Excess -5 L, O2 Saturation 88 L, ABG pCO2 35.0, ABG pO2 55 L, Lewis Test Positive Rhythm: Sinus rhythm Radiography Diagnostic Testing: Radiology Impression Knee X-Ray 02/28/22 16:17 IMPRESSION: Recent knee surgery. Electronically Signed: Jesus Allison MD at 16:43 EDT , Knee X-Ray 02/28/22 16:20 IMPRESSION: Recent knee surgery. Electronically Signed: Jesus Allison MD at 16:44 EDT , Physical Exam Const alert, oriented x3 and no apparent distress Orientation / Consciousness: awake HEENT normocephalic, head/scalp atraumatic and hearing grossly normal bilaterally Eyes PERRL, EOMs intact bilaterally and conjunctivae normal Neck full ROM, supple and no JVD Resp clear to auscultation bilaterally Cardio regular rate, regular rhythm, S1 normal heart sound and S2 normal heart sound Heart Sounds: murmur systolic II/ soft mid left sternal border, LVOT and sternal notch GI normal to inspection, nondistended, normoactive bowel sounds Extremity no pedal edema Neuro oriented x3, moves all extremities, no focal motor deficits and no sensory deficits noted Psych mental status grossly normal Assessment & Plan Assessment/Plan (1) Atherosclerosis of [place] coronary artery of [place] heart without angina pectoris: PLAN: At the present time she appears to be without any acute symptoms with respect to her underlying CAD status. She should continue risk factor modification medical therapy as deemed appropriate. (2) Presence of stent in coronary artery: PLAN: She does have a history of PCI. She has undergone noninvasive and invasive valuation in 2020 is noted. At the moment she will continue her risk factor modification medical therapy. (3) Hyperlipemia, mixed: PLAN: She has history of hyperlipidemia. She should continue medical management. (4) Essential hypertension: PLAN: She has a history of hypertension. Her blood pressure will need to be monitored and she should continue medical therapy. (5) Cardiac murmur: PLAN: She has a cardiac murmur. Based upon her follow-up transthoracic echocardiogram this appears to be related to her underlying aortic valve findings with respect to her mild focal calcification as she does not appear to have other hemodynamically significant valvular heart disease. She will be followed over time by history and physical examination. Addt'l Comments The patient is now status post orthopedic surgery procedure. She has had no obvious adverse cardiovascular events. She should continue her cardiovascular medical therapy. It does not appear she requires additional cardiovascular diagnostic studies/intervention at this time. Thank you for allowing me to participate in the care of your patient. Please don't hesitate to call if any issues arise. This note was generated using a voice recognition system and there may be incorrect words, spelling or punctuation that were not noted when reviewing the office note prior to saving. Procedure Criteria Type of Procedure Procedure Type: Elective Elective Risks - COVID COVID Risk Discussion: The surgeon/proceduralist and patient have discussed in detail the risk of exposure to and/or potential harm posed by the COVID-19 virus with having a surgery/procedure at this time versus the risk of delaying the surgery/procedure. It is not possible to know either the risk of delaying the surgery or procedure or chance of getting an infection with perfect accuracy, but a joint decision was made between the patient and the surgeon/proceduralist to proceed at this time with the scheduled surgery/procedure as indicated on the consent form.
--- NOTE | 2022-03-01 10:31 | PCM.CONS.GEN ---
Assessment & Plan Assessment/Plan (1) Painful total knee replacement, right: (2) Painful total knee replacement, left: PLAN: Now s/p bilateral knee I&D, synovectomy, and poly exchange 02/28/[address] Vernon. Aspiration cx and surg cx neg so far. Abx were held prior to surgery. Will treat with iv vanc/ceftriaxone while cxs pending, plan on picc tomorrow and 6 weeks iv abx then skilled nursing po. Will follow, thank you HPI Consult Data Date of Consult: 03/01/22 HPI Narrative HPI Narrative: MICKI PACK, is a 61 F who presented with sudden onset bilateral knee pain and swelling on 02/26, came to ED late that evening. Had bilat replacements done in the past (2012 and 2014). Mild aches, some aches. Recent course of augmentin for sinus infection. No redness or drainage. Had trouble standing due to pain. Came to ED, imaging and aspiration done. Concern for infection, taken to OR 02/[address] Vernon for bilateral I&D and poly exchange. Feeling ok this AM. Reports up to date on covid vaccine. Full ROS performed and neg except as noted above. [facility] Medical History Asthma Atherosclerosis of [place] coronary artery of [place] heart without angina pectoris Bruit of left carotid artery CAD (coronary artery disease), [place] coronary artery Cigarette nicotine dependence Depression Diabetes Essential hypertension GERD (gastroesophageal reflux disease) Hyperlipemia, mixed Hypertension Osteoarthritis Pneumonia Preoperative cardiovascular examination Presence of stent in coronary artery (~03/04/19) Sleep apnea Home Medications albuterol sulfate 1 puff INHALATION Q6H PRN PRN 12/16/14 [History Last Taken 08/14/16] metformin 1,000 mg PO BID 12/16/14 [History Last Taken 03/20/21] pantoprazole 40 mg PO DAILY tab 10/11/18 [Rx Last Taken Unknown] aspirin 81 mg tablet,delayed release 81 mg PO DAILY #90 tab 08/27/19 [Rx Last Taken 03/21/21] pravastatin 80 mg tablet 80 mg PO QHS #90 tab 08/27/19 [Rx Last Taken Unknown] zolpidem 10 mg tablet 10 mg PO QHS 08/27/19 [History Last Taken Unknown] bupropion HCl 150 mg 24 hr tablet, extended release 150 mg PO QAM 11/30/19 [History Last Taken 12/23/19] nitroglycerin 0.4 mg sublingual tablet 0.4 mg SUBLINGUAL Q5M PRN #25 tab 11/30/19 [Rx Last Taken Unknown] metoprolol tartrate 25 mg tablet 25 mg PO BID #180 tab 09/28/20 [Rx Last Taken 03/21/21] cholecalciferol (vitamin D3) 125 mcg (5,000 unit) tablet 5,000 unit PO DAILY tab 03/10/21 [History Last Taken Unknown] clopidogrel 75 mg tablet 75 mg PO DAILY #90 tab 06/09/21 [Rx Last Taken Unknown] Allergy/AdvReac Type Severity Reaction Status Date / Time carbamazepine Allergy unknown Verified 11/06/21 14:28 colestipol Allergy unknown Verified 11/06/21 14:28 diltiazem Allergy Unknown Verified 11/06/21 14:28 levofloxacin [From Levaquin] AdvReac Upset Verified 11/06/21 14:28 Stomach meperidine HCl [From Demerol] AdvReac Vomiting Verified 11/06/21 14:28 rosuvastatin calcium AdvReac Pain in Verified 11/06/21 14:28 [From Crestor] joints Tetracyclines AdvReac Upset Verified 11/06/21 14:28 Stomach tramadol AdvReac Diarrhea Verified 11/06/21 14:28 Family History Mother CVA (cerebral vascular accident) Diabetes CAD (coronary artery disease) Brother Myocardial infarction Cancer History of PTCA Diabetes Surgical History History of cholecystectomy History of ear surgery History of hysterectomy History of left heart catheterization (LHC) (~03/21/21) History of thyroid nodule History of tonsillectomy History of total bilateral knee replacement Hx of sinus surgery Presence of coronary angioplasty implant and graft (~03/04/19) Social History household members: spouse housing: other Smoking Status: Current every day smoker tobacco type: cigarettes alcohol intake: never substance use type: does not use caffeine: Yes Type: coffee Number of servings: 3 what type of physical activity do you participate in: other details: cardiac rehab frequency: 3-4 times per week duration: 15-30 minutes/day seatbelt use: always do you feel safe at home: Yes Physical Exam Const alert, oriented x3 and no apparent distress General Appearance: cooperative Exam Limitations: no limitations HEENT normocephalic and head/scalp atraumatic Eyes PERRL and EOMs intact bilaterally Neck supple and No nodes Resp normal air movement and clear to auscultation bilaterally Cardio regular rate and regular rhythm GI soft to palpation, non-tender and non-distended Extremity no clubbing, cyanosis or edema Skin Skin Narrative: BLE wrapped s/p OR Neuro CN's II-XII intact bilaterally Lab / Micro Data Result Diagrams: 02/28/22 06:36 02/28/22 06:36 Labs: Laboratory Results - last 24 hr 02/27/22 : Fl Crystal Path Review Reviewed 02/27/22 : Fl Crystal Path Review Reviewed 02/28/22 12:35: Blood Type A NEGATIVE, Antibody Screen NEGATIVE 02/28/22 18:55: POC Glucose 323 H 02/28/22 19:43: POC Glucose 302 H 02/28/22 22:52: POC Glucose 269 H 03/01/22 08:37: POC Glucose 157 H Micro: Microbiology 02/27/22 Unknown Fluid - Synovial (joint) Gram Stain - Final 02/27/22 Unknown Fluid - Synovial (joint) Body Fluid Culture - Preliminary No growth-Final to follow 02/27/22 01:30 Urine, Clean Catch Urine Culture - Final Culture exhibits no growth. 02/27/22 01:38 Blood Culture (Wb) - Anticubital Right Blood Culture - Preliminary No growth in 48 hours. 02/27/22 01:14 Blood Culture (Wb) - Anticubital Left Blood Culture - Preliminary No growth in 48 hours. 02/27/22 Unknown Fluid - Synovial (joint) Gram Stain - Final 02/27/22 Unknown Fluid - Synovial (joint) Body Fluid Culture - Preliminary No growth-Final to follow ABG Data ABG results: ABG 02/28/22 17:56 Specimen Type ART Sample Site R Radial pH 7.38 Bicarbonate Actual 20.6 L Total CO2 22 Base Excess -5 L O2 Saturation 88 L O2 % 50 ABG pCO2 35.0 ABG pO2 55 L Lewis Test Positive O2 Delivery Device Venti Mask Radiology Impression Knee X-Ray 02/28/22 16:17 IMPRESSION: Recent knee surgery. Electronically Signed: Jesus Allison MD at 16:43 EDT , Knee X-Ray 02/28/22 16:20 IMPRESSION: Recent knee surgery. Electronically Signed: Jesus Allison MD at 16:44 EDT ,
--- NOTE | 2022-03-01 11:09 | PN.HOSP_ITS ---
Subjective Subjective Patient underwent Irrigation debridement, complete synovectomy and polyethylene exchange right total knee Irrigation debridement, complete synovectomy and polyethylene exchange left total knee performed by Dr. Vernon on 03/01/2022 Objective Data Objective Data Vital Signs: Vital Signs Temp Pulse Resp BP Pulse Ox 98.4 F 72 16 136/59 H 93 03/01/22 08:30 03/01/22 08:44 03/01/22 08:30 03/01/22 08:30 03/01/22 08:30 Oxygen Flow Rate (L/min) 2 Oxygen Delivery Method Room Air Weight: 84.8 kg Body Mass Index (BMI) 32.1 Intake & Output: Intake and Output for Last 24 Hours 02/27/22 02/28/22 03/01/22 23:59 23:59 23:59 Intake Total 2099 / 2099 1655 / 1775 802.25 / 802.25 Output Total 50 / 50 Balance 2049 / 2049 1655 / 1775 802.25 / 802.25 Lab / Micro Data Result Diagrams: 02/28/22 06:36 02/28/22 06:36 Labs: Laboratory Results - last 24 hr 02/27/22 : Fl Crystal Path Review Reviewed 02/27/22 : Fl Crystal Path Review Reviewed 02/28/22 12:35: Blood Type A NEGATIVE, Antibody Screen NEGATIVE 02/28/22 18:55: POC Glucose 323 H 02/28/22 19:43: POC Glucose 302 H 02/28/22 22:52: POC Glucose 269 H 03/01/22 08:37: POC Glucose 157 H Micro: Microbiology 02/28/22 14:25 Tissue - Knee Wound Culture - Preliminary No growth-Final to follow 02/28/22 14:20 Tissue - Knee Wound Culture - Preliminary No growth-Final to follow 02/28/22 14:15 Tissue - Knee Wound Culture - Preliminary No growth-Final to follow 02/28/22 Unknown Tissue - Knee Wound Culture - Preliminary No growth-Final to follow 02/28/22 Unknown Tissue - Knee Wound Culture - Preliminary No growth-Final to follow 02/28/22 Unknown Tissue - Knee Wound Culture - Preliminary No growth-Final to follow 02/27/22 Unknown Fluid - Synovial (joint) Gram Stain - Final 02/27/22 Unknown Fluid - Synovial (joint) Body Fluid Culture - Preliminary No growth-Final to follow 02/27/22 01:30 Urine, Clean Catch Urine Culture - Final Culture exhibits no growth. 02/27/22 01:38 Blood Culture (Wb) - Anticubital Right Blood Culture - Preliminary No growth in 48 hours. 02/27/22 01:14 Blood Culture (Wb) - Anticubital Left Blood Culture - Preliminary No growth in 48 hours. 02/27/22 Unknown Fluid - Synovial (joint) Gram Stain - Final 02/27/22 Unknown Fluid - Synovial (joint) Body Fluid Culture - Preliminary No growth-Final to follow 02/27/22 04:45 Mucosa - Nasopharyngeal Respiratory Panel (PCR) - Final 02/27/22 01:10 Nasal Secretion SARS-CoV-2 & FLU Antigen (Rapid) - Final SARS-CoV-2 (COVID 19) Influenzae A ABG Data ABG results: ABG 02/28/22 17:56 Specimen Type ART Sample Site R Radial pH 7.38 Bicarbonate Actual 20.6 L Total CO2 22 Base Excess -5 L O2 Saturation 88 L O2 % 50 ABG pCO2 35.0 ABG pO2 55 L Lewis Test Positive O2 Delivery Device Venti Mask Radiography Diagnostic Testing: Radiology Impression Knee X-Ray 02/28/22 16:17 IMPRESSION: Recent knee surgery. Electronically Signed: Jesus Allison MD at 16:43 EDT , Knee X-Ray 02/28/22 16:20 IMPRESSION: Recent knee surgery. Electronically Signed: Jesus Allison MD at 16:44 EDT , Physical Exam Narrative GENERAL: cooperative HEENT: Atraumatic; EYES; Anicteric, Normal Conjunctiva NECK; supple, normal thyroid, RESPIRATORY: Diminished to auscultation CARDIOVASCULAR: Regular S1 S2, GI: soft, normoactive bowel sounds, : No Renal angle tenderness; EXTREMITIES: No edema, no clubbing, MUSCULOSKELETAL: Both knees in surgical dressing NEURO: Awake; no lateralizing signs. SKIN: No Rash PSYCH; Flat affect Assessment & Plan Assessment/Plan (1) Osteoarthritis: (2) Asthma: (3) GERD (gastroesophageal reflux disease): (4) Depression: (5) Sleep apnea: (6) Hyperlipemia, mixed: (7) Presence of stent in coronary artery: (8) Knee pain: PLAN: Patient is a 61-year-old lady admitted with bilateral knee pain with swelling and inability to walk. Imaging studies obtained of both knees demonstrated no acute findings but history of previous bilateral knee arthroplasty. Patient also tested positive for COVID-19 using a rapid test as well as influenza A. PCR however came back negative for both 1. Septic arthritis involving both knees in a patient with previous bilateral knee replacement . Patient presented with significant swelling and pain involving both knees. Consult was placed to Dr. Vernon with orthopedic surgery ? 02/28/2022 :Bilateral knee aspiration performed by Dr. Vernon the day prior came back highly suspicious for septic arthritis. Plan is for patient to undergo irrigation debridement polyethylene exchange of both knees. Consult was also placed to cardiology Dr. Davila given patient underlying history of coronary artery disease with previous stent placement 03/01/2022atient underwent Irrigation debridement, complete synovectomy and polyethylene exchange right total knee Irrigation debridement, complete syn ovectomy and polyethylene exchange left total knee performed by Dr. Vernon on 03/01/2022. Case was discussed with Dr. Webb with infectious disease plan is for patient to have PICC line placed for 6 weeks of IV antibiotics. Patient currently on ceftriaxone and vancomycin 2. Transient hypoxia ? Following patient surgery patient was placed on noninvasive ventilation with BiPAP. Back to baseline this a.m. 3. Anemia - Secondary to acute blood loss anemia following surgery superimposed on chronic disorder monitoring H&H and transfuse if patient becomes symptomatic or hemoglobin falls below 7 4. Hypertension - Blood pressure controlled, home medications continued with dose adjustment as needed 5. Coronary artery disease with previous history of stent to proximal OM and LAD ? On recommended medications including beta-blockers antiplatelet therapy and statin therapy 6. Dyslipidemia -Patient is on statin therapy, continued at home dose 7. Tobacco dependence - Counseled on cessation, offered nicotine patch for tobacco cravings 8. Depression ? Patient is a bupropion discontinued 9 Obstructive sleep apnea ? Currently not on any PAP therapy 10. Inconclusive influenza A and COVID 19 ? Patient PCR came back negative for COVID 19 patient is currently in isolation without symptoms. Isolation subsequently discontinued 11. GERD ? On PPI 12. DVT prophylaxis Rivaroxaban Charges/Coding Visit Charges Inpatient E&M: 13509 Subs Hosp L3
--- NOTE | 2022-03-01 11:27 | CASEMGMT ---
Addendum entered by Pati Gomes 03/01/22 11:58: Call back from Katty at [facility] inpt rehab and she states they can accept pt and will start precert. Pt updated, voices understanding. Smitha MACIEL CM Original Note: Pt had bilat knee I&D w/ exchange yesterday and therapy is recommending further therapy for pt and therapy states that inpt rehab would be great for pt. Pt also needs PICC and 6 weeks of antibx. Call to Katty at [facility] IR and she states that that is a qualifying dx. Pt/daughter updated on all and pt provided list of SNF and HHC providers including quality and resource use data and consistent w/ the pt's preferred geographic region, medical needs, and insurance network. Pt states she would like to go to [facility] inpt rehab and pt is aware that she will need precert thru MMO, voices understanding. CM awaiting call back from Katty in rehab that they can accept and if so, precert to be started. Smitha MACIEL CM
[2022-03-01 12:10] LABS: Absolute Lymphocyte Count 0.77 X10^3/uL (0.83-4.51); Absolute Neutrophil Count 11.8 X10^3/uL (2.0-7.7); Basophil# 0.04 X10^3/uL; Basophil% 0.3 % (0-1); Eosinophil# 0.03 X10^3/uL; Eosinophils% 0.2 % (0-5); Hematocrit 33.5 % (37-47); Hemoglobin 10.3 g/dL (12.0-15.0); Lymphocyte # 0.77 X10^3/ul (0.83-4.51); Lymphocyte % 5.9 % (19-41); Mean Corp Hgb Conc 30.7 g/dL (32-36); Mean Corpuscular Volume 87.7 fL (81-99); Mean Platelet Vol. 10.4 fl (6.2-12.0); Monocyte# 0.38 X10^3/uL; Monocyte% 2.9 % (0-10); NRBC Flagged by Analyzer 0 % (0-5); Neutrophil # 11.77 X10^3/uL (2.7-7.7); Platelet Count 256 K/mm3 (150-450); RBC Distribution Width SD 48.2 fl (35.1-43.9); Red Blood Count 3.82 M/mm3 (4.2-5.4); White Blood Count 13.1 K/mm3 (4.4-11.0)
[2022-03-01 12:20] LABS: Anion Gap 9 (5-15); BUN 12 mg/dL (7-18); BUN/Creat Ratio 16.7 RATIO (10-20); Calcium,Total 8.5 mg/dL (8.5-10.1); Chloride 106 mmol/L (98-107); Creatinine, Serum 0.72 mg/dL (0.55-1.02); EST Glomerular Filtration Rate 87 mL/min (>60); Est Glom Filt Rate - Afr Amer 105 mL/min (>60); Estimated Creatinine Clearance 69.06 ml/min; Glucose 272 mg/dL (74-106); Magnesium 1.9 mg/dL (1.6-2.6); Potassium 4.2 mmol/L (3.5-5.1); Sodium Level 138 mmol/L (136-145)
--- NOTE | 2022-03-01 14:51 | PCM.RX.CS ---
Consult Pharmacy has been consulted to manage selected antiobiotic: Vancomycin Type of Consult: New start Suspected Infection: Skin/Soft tissue, Other Prior Doses of Antibiotics Received/Current Regimen: Patient received 2000mg of vancomycin 03/01/22 @ 1120 Labs: Sodium 138 mmol/L (136-145) 03/01/22 11:57 Potassium 4.2 mmol/L (3.5-5.1) 03/01/22 11:57 Chloride 106 mmol/L (98-107) 03/01/22 11:57 Carbon Dioxide 23.0 mmol/L (21.0-32.0) 03/01/22 11:57 Anion Gap 9 (5-15) 03/01/22 11:57 BUN 12 mg/dL (7-18) 03/01/22 11:57 Creatinine 0.72 mg/dL (0.55-1.02) 03/01/22 11:57 Est GFR (MDRD) Af Amer 105 mL/min (>60) 03/01/22 11:57 Est GFR (MDRD) Non-Af 87 mL/min (>60) 03/01/22 11:57 BUN/Creatinine Ratio 16.7 RATIO (10-20) 03/01/22 11:57 Glucose 272 mg/dL (74-106) H 03/01/22 11:57 Microbiology: Microbiology 02/28/22 14:25 Tissue - Knee Gram Stain - Final 02/28/22 14:25 Tissue - Knee Wound Culture - Preliminary No growth-Final to follow 02/28/22 14:20 Tissue - Knee Gram Stain - Final 02/28/22 14:20 Tissue - Knee Wound Culture - Preliminary No growth-Final to follow 02/28/22 14:15 Tissue - Knee Gram Stain - Final 02/28/22 14:15 Tissue - Knee Wound Culture - Preliminary No growth-Final to follow 02/28/22 Unknown Tissue - Knee Gram Stain - Final 02/28/22 Unknown Tissue - Knee Wound Culture - Preliminary No growth-Final to follow 02/28/22 Unknown Tissue - Knee Gram Stain - Final 02/28/22 Unknown Tissue - Knee Wound Culture - Preliminary No growth-Final to follow 02/28/22 Unknown Tissue - Knee Gram Stain - Final 02/28/22 Unknown Tissue - Knee Wound Culture - Preliminary No growth-Final to follow 02/27/22 Unknown Fluid - Synovial (joint) Gram Stain - Final 02/27/22 Unknown Fluid - Synovial (joint) Body Fluid Culture - Preliminary No growth-Final to follow 02/27/22 01:30 Urine, Clean Catch Urine Culture - Final Culture exhibits no growth. 02/27/22 01:38 Blood Culture (Wb) - Anticubital Right Blood Culture - Preliminary No growth in 48 hours. 02/27/22 01:14 Blood Culture (Wb) - Anticubital Left Blood Culture - Preliminary No growth in 48 hours. 02/27/22 Unknown Fluid - Synovial (joint) Gram Stain - Final 02/27/22 Unknown Fluid - Synovial (joint) Body Fluid Culture - Preliminary No growth-Final to follow 02/27/22 04:45 Mucosa - Nasopharyngeal Respiratory Panel (PCR) - Final 02/27/22 01:10 Nasal Secretion SARS-CoV-2 & FLU Antigen (Rapid) - Final SARS-CoV-2 (COVID 19) Influenzae A Weight used for dosin kg Estimated Creatinine Clearance: 79 Goal Trough: 15-20 mcg/mL Pharmacy Plan for Drug Dosing: Patients maintenance dose of vancomycin 1000mg q12h , with trough to be drawn at 2200 on 03/02/22 Pharmacy Service will continue to monitor and adjust dosing as required. Follow-Up Labs: Trough Vancomycin Labs to be done on [date and time ordered]: 03/02/22 @2200
--- NOTE | 2022-03-01 15:27 | PN.ORTHO_ITS ---
Subjective Subjective The patient was sitting in bed upon examination with family member present. Patient denies any chest pain, shortness of breath, dizziness, lightheadedness, nausea or vomiting, or calf pain. Patient continues to complain of pain in bilateral knees. She does feel the right is worse than the left. Patient is currently on IV Dilaudid and Tylenol. She is also on Xarelto for DVT prophylaxis secondary to bilateral procedure. Infectious disease is currently involved and plan is for patient to get PICC line tomorrow and IV antibiotics for 6 weeks postoperatively. Patient is currently on vancomycin and ceftriaxo ne. Objective Data Objective Data Vital Signs: Vital Signs Temp Pulse Resp BP Pulse Ox 98.1 F 80 16 128/46 H 92 03/01/22 15:10 03/01/22 15:10 03/01/22 15:10 03/01/22 15:10 03/01/22 15:10 Oxygen Flow Rate (L/min) 2 Oxygen Delivery Method Room Air Weight: 84.8 kg Body Mass Index (BMI) 32.1 Intake & Output: Intake and Output for Last 24 Hours 02/27/22 02/28/22 03/01/22 23:59 23:59 23:59 Intake Total 2100 / 2100 1655 / 1775 1842.25 / 1842.25 Output Total 50 / 50 Balance 2049 / 2049 1655 / 1775 1842.25 / 1842.25 Lab / Micro Data Result Diagrams: 03/02/22 05:55 03/01/22 11:57 Labs: Laboratory Results - last 24 hr 02/27/22 : Fl Crystal Path Review Reviewed 02/27/22 : Il Crystal Path Review Reviewed 02/28/22 18:55: POC Glucose 323 H 02/28/22 19:43: POC Glucose 302 H 02/28/22 22:52: POC Glucose 269 H 03/01/22 08:37: POC Glucose 157 H 03/01/22 11:57: WBC 13.1 H, RBC 3.82 L, Hgb 10.3 L, Hct 33.5 L, MCV 87.7, MCH 27.0, MCHC 30.7 L D, RDW Std Deviation 48.2 H, RDW Coeff of Jossy 15.0 H, Plt Count 256, MPV 10.4, Immature Gran % (Auto) 0.700, Neut % (Auto) 90.0 H, Lymph % (Auto) 5.9 L, [place] % (Auto) 2.9, Eos % (Auto) 0.2, Baso % (Auto) 0.3, Absolute Neuts (auto) 11.8 H, Absolute Lymphs (auto) 0.77 L, Nucleated RBC % 0 03/01/22 11:57: Sodium 138, Potassium 4.2, Chloride 106, Carbon Dioxide 23.0, Anion Gap 9, BUN 12, Creatinine 0.72, Estim Creat Clear Calc 69.06, Est GFR (MDRD) Af Amer 105, Est GFR (MDRD) Non-Af 87, BUN/Creatinine Ratio 16.7, Glucose 272 H, Calcium 8.5, Magnesium 1.9 Micro: Microbiology 02/28/22 14:25 Tissue - Knee Gram Stain - Final 02/28/22 14:25 Tissue - Knee Wound Culture - Preliminary No growth-Final to follow 02/28/22 14:20 Tissue - Knee Gram Stain - Final 02/28/22 14:20 Tissue - Knee Wound Culture - Preliminary No growth-Final to follow 02/28/22 14:15 Tissue - Knee Gram Stain - Final 02/28/22 14:15 Tissue - Knee Wound Culture - Preliminary No growth-Final to follow 02/28/22 Unknown Tissue - Knee Gram Stain - Final 02/28/22 Unknown Tissue - Knee Wound Culture - Preliminary No growth-Final to follow 02/28/22 Unknown Tissue - Knee Gram Stain - Final 02/28/22 Unknown Tissue - Knee Wound Culture - Preliminary No growth-Final to follow 02/28/22 Unknown Tissue - Knee Gram Stain - Final 02/28/22 Unknown Tissue - Knee Wound Culture - Preliminary No growth-Final to follow 02/27/22 Unknown Fluid - Synovial (joint) Gram Stain - Final 02/27/22 Unknown Fluid - Synovial (joint) Body Fluid Culture - Preliminary No growth-Final to follow 02/27/22 01:30 Urine, Clean Catch Urine Culture - Final Culture exhibits no growth. 02/27/22 01:38 Blood Culture (Wb) - Anticubital Right Blood Culture - Preliminary No growth in 48 hours. 02/27/22 01:14 Blood Culture (Wb) - Anticubital Left Blood Culture - Preliminary No growth in 48 hours. 02/27/22 Unknown Fluid - Synovial (joint) Gram Stain - Final 02/27/22 Unknown Fluid - Synovial (joint) Body Fluid Culture - Preliminary No growth-Final to follow 02/27/22 04:45 Mucosa - Nasopharyngeal Respiratory Panel (PCR) - Final 02/27/22 01:10 Nasal Secretion SARS-CoV-2 & FLU Antigen (Rapid) - Final SARS-CoV-2 (COVID 19) Influenzae A ABG Data ABG results: ABG 02/28/22 17:56 Specimen Type ART Sample Site R Radial pH 7.38 Bicarbonate Actual 20.6 L Total CO2 22 Base Excess -5 L O2 Saturation 88 L O2 % 50 ABG pCO2 35.0 ABG pO2 55 L Lewis Test Positive O2 Delivery Device Venti Mask Radiography Diagnostic Testing: Radiology Impression Knee X-Ray 02/28/22 16:17 IMPRESSION: Recent knee surgery. Electronically Signed: Jesus Allison MD at 16:43 EDT , Knee X-Ray 02/28/22 16:20 IMPRESSION: Recent knee surgery. Electronically Signed: Jesus Allison MD at 16:44 EDT , Physical Exam Narrative Vital signs stable and afebrile. ANASTASIA hose and SCDs are in place bilaterally. The Jacinto wrap's were removed. We will continue with the ANASTASIA hose for 2 weeks postoperatively. Patient is able to plantarflex and dorsiflex actively. Sensation is intact to light touch to saphenous, sural, superficial and deep peroneal, and tibial distribution. Bilateral Mepilex dressings are clean dry and intact. Negative Homans bilaterally, negative signs and symptoms of DVT. Const alert, oriented x3 and no apparent distress Assessment & Plan Assessment/Plan (1) Painful total knee replacement, right: (2) Painful total knee replacement, left: PLAN: 1. S/P bilateral irrigation debridement with complete synovectomy and polyethylene exchange POD #1 2. Continue Pain Medications: Currently on IV Dilaudid and oral Tylenol. We will continue with pain medications per medicine. Do recommend switching over to oral narcotic. 3. DVT Prophylaxis: Xarelto 10 mg 1 tablet daily for 2 weeks postoperatively due to bilateral procedure. Plan will be to switch over to aspirin 81 mg twice daily after her 2-week postoperative visit. 4. PT/OT: Weightbearing as tolerated with walker 5. H & H: 10.3/33.5, asymptomatic. Postoperative anemia secondary to acute blood loss from surgery without any intra operative complications. 6. Reactive leukocytosis: Currently 13.1, afebrile. Patient has been taking prednisone while in the hospital. She denies taking prednisone at home. Most likely reactive from surgery and corticosteroid. 7. Continue postoperative medical management per medicine 8. Infectious disease consultation: Continue antibiotics per infectious disease. Currently on ceftriaxone and vancomycin. Plan is for PICC line and IV antibiotics for 6 weeks postoperatively. Patient will require follow-up with infectious disease for management of the antibiotics. Current cultures are with no growth. 9. Encouraged Incentive Spirometry 10. Disposition: Patient is orthopedically stable. We will continue to follow her tomorrow. We will follow-up with infectious disease for management of antibiotics. Patient will also require 2-week postoperative follow-up with [facility] [place] for x-rays and staple removal. Plan will be for patient to be weightbearing as tolerated with walker. Mepilex dressings for 5 to 7 days. Patient can shower with the Mepilex dressing. No submerging underwater for 6 weeks postoperatively. Patient can remove the Mepilex dressing 5 to 7 days postoperatively. At that time it is okay to shower and get the incision wet but only place gentle soap and water over the incisions. Recommend Xarelto for 2 weeks postoperatively for DVT prophylaxis due to bilateral procedure and increased risk of DVT. We will plan on switching her over to baby aspirin 81 mg twice daily at her 2-week follow-up for an additional 2 weeks. Recommend oral narcotics upon discharge for pain control. Can continue with Tylenol for pain control as well. We will follow patient tomorrow as well as lab work and cultures. This dictation was created using voice recognition software. Phonetic and/or grammatical errors may exist.
[2022-03-01 17:05] LABS: Bedside Glucose 319 mg/dL (74-106)
[2022-03-01] MEDS: oxyCODONE 5 MG Tablet PO (20:37)
[2022-03-01] MEDS: Zolpidem Tartrate 5 MG Tablet PO (20:37)
[2022-03-01] MEDS: Pravastatin 80 MG Tablet PO (20:38)
--- NOTE | 2022-03-01 22:22 | CPS ---
pt did not want to wear bipap tonight
[2022-03-01 22:26] LABS: Bedside Glucose 314 mg/dL (74-106)
[2022-03-01] MEDS: Vancomycin IV 1,000 MG/200 ML BAG 200 MG IV (22:26)
[2022-03-02] MEDS: 0.9% Saline Lock 10 ML Syringe IV ×2 (00:19→05:12)
[2022-03-02] MEDS: Morphine 4 MG/ML Syringe IV ×2 (00:19→05:11)
[2022-03-02 02:40] VITALS: BP 136/70; PULSE 74; RESP 20; TEMP 36.3; O2SAT 94
[2022-03-02] MEDS: oxyCODONE 5 MG Tablet 10 MG PO ×2 (02:52→14:59)
[2022-03-02 03:00] VITALS: PULSE 71
[2022-03-02] MEDS: Rivaroxaban 10 MG Tablet PO (05:11)
[2022-03-02] MEDS: Acetaminophen 500 MG Tablet 1000 MG PO ×2 (05:11→14:59)
[2022-03-02 06:20] LABS: Absolute Lymphocyte Count 2.12 X10^3/uL (0.83-4.51); Absolute Neutrophil Count 5.7 X10^3/uL (2.0-7.7); Basophil# 0.04 X10^3/uL; Basophil% 0.5 % (0-1); Eosinophil# 0.18 X10^3/uL; Hematocrit 30.4 % (37-47); Hemoglobin 9.5 g/dL (12.0-15.0); Lymphocyte # 2.12 X10^3/ul (0.83-4.51); Mean Corp Hgb Conc 31.3 g/dL (32-36); Mean Corpuscular Hgb 27.4 pg (27.0-32.0); Mean Corpuscular Volume 87.6 fL (81-99); Mean Platelet Vol. 10.3 fl (6.2-12.0); Monocyte# 0.72 X10^3/uL; Monocyte% 8.1 % (0-10); NRBC Flagged by Analyzer 0 % (0-5); Neutrophil # 5.74 X10^3/uL (2.7-7.7); Neutrophil % 64.9 % (47-70); POSITIVE MORPHOLOGY YES; Platelet Count 258 K/mm3 (150-450); RBC Distribution Width SD 47.8 fl (35.1-43.9); Red Blood Count 3.47 M/mm3 (4.2-5.4); White Blood Count 8.8 K/mm3 (4.4-11.0)
[2022-03-02 06:24] LABS: Differential Indicated SCAN CRITERIA MET
[2022-03-02 06:34] LABS: Anisocytosis 1+; Atypical Lymphocyte 1+ %
--- NOTE | 2022-03-02 06:35 | PN.ORTHO_ITS ---
Subjective Subjective The patient was sitting in bed upon examination. Patient denies any chest pain, shortness of breath, dizziness, lightheadedness, nausea or vomiting, or calf pain. Pain is controlled on medications. No adverse overnight events. Patient reports that her pain does feel better this morning. She has worked with [email or web address]. The plan is for patient to go to [facility] inpatient rehab once pre-CERT has been obtained. Dr. Gilberto Vernon did discuss with the hospitalist and patient was placed on oxycodone for breakthrough pain. Objective Data Objective Data Vital Signs: Vital Signs Temp Pulse Resp BP Pulse Ox 97.4 F L 71 20 H 136/70 H 94 03/02/22 02:40 03/02/22 03:00 03/02/22 02:40 03/02/22 02:40 03/02/22 02:40 Oxygen Flow Rate (L/min) 2 Oxygen Delivery Method Room Air Weight: 84.8 kg Body Mass Index (BMI) 32.1 Intake & Output: Intake and Output for Last 24 Hours 02/28/22 03/01/22 03/02/22 23:59 23:59 23:59 Intake Total 1655 / 1775 2642.25 / 3242.25 600 / 600 Balance 1655 / 1775 2642.25 / 3242.25 600 / 600 Lab / Micro Data Result Diagrams: 03/02/22 05:55 03/01/22 11:57 Labs: Laboratory Results - last 24 hr 02/27/22 : Fl Crystal Path Review Reviewed 02/27/22 : Fl Crystal Path Review Reviewed 03/01/22 08:37: POC Glucose 157 H 03/01/22 11:57: WBC 13.1 H, RBC 3.82 L, Hgb 10.3 L, Hct 33.5 L, MCV 87.7, MCH 27.0, MCHC 30.7 L D, RDW Std Deviation 48.2 H, RDW Coeff of Jossy 15.0 H, Plt Count 256, MPV 10.4, Immature Gran % (Auto) 0.700, Neut % (Auto) 90.0 H, Lymph % (Auto) 5.9 L, [place] % (Auto) 2.9, Eos % (Auto) 0.2, Baso % (Auto) 0.3, Absolute Neuts (auto) 11.8 H, Absolute Lymphs (auto) 0.77 L, Nucleated RBC % 0 03/01/22 11:57: Sodium 138, Potassium 4.2, Chloride 106, Carbon Dioxide 23.0, Anion Gap 9, BUN 12, Creatinine 0.72, Estim Creat Clear Calc 69.06, Est GFR (MDRD) Af Amer 105, Est GFR (MDRD) Non-Af 87, BUN/Creatinine Ratio 16.7, Glucose 272 H, Calcium 8.5, Magnesium 1.9 03/01/22 16:56: POC Glucose 319 H 03/01/22 20:28: POC Glucose 314 H 03/02/22 05:55: WBC 8.8, RBC 3.47 L, Hgb 9.5 L, Hct 30.4 L, MCV 87.6, MCH 27.4, MCHC 31.3 L, RDW Std Deviation 47.8 H, RDW Coeff of Jossy 15.0 H, Plt Count 258, MPV 10.3, Immature Gran % (Auto) 0.500, Neut % (Auto) 64.9, Lymph % (Auto) 24.0, [place] % (Auto) 8.1, Eos % (Auto) 2.0, Baso % (Auto) 0.5, Absolute Neuts (auto) 5.7, Absolute Lymphs (auto) 2.12, Nucleated RBC % 0, Atypical Lymphocytes 1+, Anisocytosis 1+ Micro: Microbiology 02/28/22 14:25 Tissue - Knee Gram Stain - Final 02/28/22 14:25 Tissue - Knee Wound Culture - Preliminary No growth-Final to follow 02/28/22 14:20 Tissue - Knee Gram Stain - Final 02/28/22 14:20 Tissue - Knee Wound Culture - Preliminary No growth-Final to follow 02/28/22 14:15 Tissue - Knee Gram Stain - Final 02/28/22 14:15 Tissue - Knee Wound Culture - Preliminary No growth-Final to follow 02/28/22 Unknown Tissue - Knee Gram Stain - Final 02/28/22 Unknown Tissue - Knee Wound Culture - Preliminary No growth-Final to follow 02/28/22 Unknown Tissue - Knee Gram Stain - Final 02/28/22 Unknown Tissue - Knee Wound Culture - Preliminary No growth-Final to follow 02/28/22 Unknown Tissue - Knee Gram Stain - Final 02/28/22 Unknown Tissue - Knee Wound Culture - Preliminary No growth-Final to follow 02/27/22 Unknown Fluid - Synovial (joint) Gram Stain - Final 02/27/22 Unknown Fluid - Synovial (joint) Body Fluid Culture - Preliminary No growth-Final to follow 02/27/22 01:30 Urine, Clean Catch Urine Culture - Final Culture exhibits no growth. 02/27/22 01:38 Blood Culture (Wb) - Anticubital Right Blood Culture - Preliminary No growth in 48 hours. 02/27/22 01:14 Blood Culture (Wb) - Anticubital Left Blood Culture - Preliminary No growth in 48 hours. 02/27/22 Unknown Fluid - Synovial (joint) Gram Stain - Final 02/27/22 Unknown Fluid - Synovial (joint) Body Fluid Culture - Preliminary No growth-Final to follow 02/27/22 04:45 Mucosa - Nasopharyngeal Respiratory Panel (PCR) - Final 02/27/22 01:10 Nasal Secretion SARS-CoV-2 & FLU Antigen (Rapid) - Final SARS-CoV-2 (COVID 19) Influenzae A Physical Exam Narrative Vital signs stable and afebrile. Patient is resting in bed with ice on the right knee ANASTASIA hose and SCDs are in place bilaterally Patient is able to plantarflex and dorsiflex actively. Sensation is intact to light touch to saphenous, sural, superficial and deep peroneal, and tibial distribution. Dressing is clean dry and intact. Negative Homans bilaterally, negative signs and symptoms of DVT. Const alert, oriented x3 and no apparent distress General Appearance: well kempt HEENT normocephalic and head/scalp atraumatic Eyes PERRL Neck No nuchal rigidity Resp normal respiratory effort Cardio regular rate GI non-distended Extremity Extremity Narrative: Right lower extremity: Previous incision is clean dry and intact. Large effusion. Tenderness palpation globally about the knee. Increased pain with knee flexion. Knee flexion to 30 degrees with increased pain. Stable to varus and valgus stress. Warm to touch. Neurovascular intact distally. Left lower extremity:Previous incision is clean dry and intact. Large effusion. Tenderness palpation globally about the knee. Increased pain with knee flexion. Knee flexion to 30 degrees with increased pain. Stable to varus and valgus stress. Warm to touch. Neurovascular intact distally. Neuro oriented x3 Assessment & Plan Assessment/Plan (1) Painful total knee replacement, right: (2) Painful total knee replacement, left: PLAN: 1. S/P bilateral irrigation debridement with complete synovectomy and polyethylene exchange POD #2 2. Continue Pain Medications: Patient currently on Tylenol and oxycodone as needed. 3. DVT Prophylaxis: Xarelto 10 mg 1 tablet daily for 2 weeks postoperatively due to bilateral procedure. Plan will be to switch over to aspirin 81 mg twice daily after her 2-week postoperative visit. 4. PT/OT: Weightbearing as tolerated with walker 5. H & H: 9.5/30.4, asymptomatic. Postoperative anemia secondary to acute blood loss from surgery without any intra operative complications. 6. Reactive leukocytosis: Resolved, currently 8.8. Afebrile. 7. Continue postoperative medical management per medicine 8. Infectious disease consultation: Continue antibiotics per infectious disease. Currently on ceftriaxone and vancomycin. Plan is for PICC line and IV antibiotics for 6 weeks postoperatively. Patient will require follow-up with infectious disease for management of the antibiotics. Current cultures are with no growth. 9. Encouraged Incentive Spirometry 10. Disposition: Patient is orthopedically stable. Okay for discharge from an orthopedic standpoint once PICC line has been in place and pre-CERT has been obtained for inpatient rehab at [facility]. We will have patient follow-up with infectious disease for management of antibiotics. Patient will also require 2-week postoperative follow-up with [facility] for x-rays and staple removal. This was discussed with case management yesterday to set up appointment. Plan will be for patient to be weightbearing as tolerated with walker. Mepilex dressings for 5 to 7 days. Patient can shower with the Mepilex dressing. No submerging underwater for 6 weeks postoperatively. Patient can remove the Mepilex dressing 5 to 7 days postoperatively. At that time it is okay to shower and get the incision wet but only place gentle soap and water over the incisions. Recommend Xarelto for 2 weeks postoperatively for DVT prophylaxis due to bilateral procedure and increased risk of DVT. We will plan on switching her over to baby aspirin 81 mg twice daily at her 2-week follow-up for an additional 2 weeks. Continue with oxycodone and Tylenol upon discharge for pain control. We will sign off on patient but please contact orthopedics with any concerns or questions. I have reviewed the [place] Automated Rx Reporting System (OARRS) report for this patient for refill pattern and other prescriber involvement as part of the appropriate surveillance for the provision of acute and chronic controlled medications. The report was requested and reviewed on the date of this entry and was considered in the prescribing process. This dictation was created using voice recognition software. Phonetic and/or grammatical errors may exist.
[2022-03-02 06:49] LABS: Anion Gap 5 (5-15); BUN 11 mg/dL (7-18); BUN/Creat Ratio 16.2 RATIO (10-20); Calcium,Total 8.4 mg/dL (8.5-10.1); Chloride 107 mmol/L (98-107); Creatinine, Serum 0.68 mg/dL (0.55-1.02); EST Glomerular Filtration Rate 93 mL/min (>60); Est Glom Filt Rate - Afr Amer 112 mL/min (>60); Estimated Creatinine Clearance 73.12 ml/min; Glucose 175 mg/dL (74-106); Magnesium 1.9 mg/dL (1.6-2.6); Potassium 3.5 mmol/L (3.5-5.1); Sodium Level 139 mmol/L (136-145)
[2022-03-02 07:00] VITALS: PULSE 71
--- NOTE | 2022-03-02 07:59 | PN.HOSP_ITS ---
Subjective Subjective Patient seen pain is tolerable. Cultures still pending but so far negative growth to date patient was on prednisone started on admission discontinued. Objective Data Objective Data Vital Signs: Vital Signs Temp Pulse Resp BP Pulse Ox 97.4 F L 71 20 H 136/70 H 94 03/02/22 02:40 03/02/22 07:00 03/02/22 02:40 03/02/22 02:40 03/02/22 02:40 Oxygen Flow Rate (L/min) 2 Oxygen Delivery Method Room Air Weight: 84.8 kg Body Mass Index (BMI) 32.1 Intake & Output: Intake and Output for Last 24 Hours 02/28/22 03/01/22 03/02/22 23:59 23:59 23:59 Intake Total 1655 / 1775 2642.25 / 3242.25 700 / 700 Output Total 0 / 0 Balance 1655 / 1775 2642.25 / 3242.25 700 / 700 Lab / Micro Data Result Diagrams: 03/02/22 05:55 03/02/22 05:55 Labs: Laboratory Results - last 24 hr 02/27/22 : Fl Crystal Path Review Reviewed 02/27/22 : Fl Crystal Path Review Reviewed 03/01/22 08:37: POC Glucose 157 H 03/01/22 11:57: WBC 13.1 H, RBC 3.82 L, Hgb 10.3 L, Hct 33.5 L, MCV 87.7, MCH 27.0, MCHC 30.7 L D, RDW Std Deviation 48.2 H, RDW Coeff of Jossy 15.0 H, Plt Count 256, MPV 10.4, Immature Gran % (Auto) 0.700, Neut % (Auto) 90.0 H, Lymph % (Auto) 5.9 L, [place] % (Auto) 2.9, Eos % (Auto) 0.2, Baso % (Auto) 0.3, Absolute Neuts (auto) 11.8 H, Absolute Lymphs (auto) 0.77 L, Nucleated RBC % 0 03/01/22 11:57: Sodium 138, Potassium 4.2, Chloride 106, Carbon Dioxide 23.0, Anion Gap 9, BUN 12, Creatinine 0.72, Estim Creat Clear Calc 69.06, Est GFR (MDRD) Af Amer 105, Est GFR (MDRD) Non-Af 87, BUN/Creatinine Ratio 16.7, Glucose 272 H, Calcium 8.5, Magnesium 1.9 03/01/22 16:56: POC Glucose 319 H 03/01/22 20:28: POC Glucose 314 H 03/02/22 05:55: WBC 8.8, RBC 3.47 L, Hgb 9.5 L, Hct 30.4 L, MCV 87.6, MCH 27.4, MCHC 31.3 L, RDW Std Deviation 47.8 H, RDW Coeff of Jossy 15.0 H, Plt Count 258, MPV 10.3, Immature Gran % (Auto) 0.500, Neut % (Auto) 64.9, Lymph % (Auto) 24.0, [place] % (Auto) 8.1, Eos % (Auto) 2.0, Baso % (Auto) 0.5, Absolute Neuts (auto) 5.7, Absolute Lymphs (auto) 2.12, Nucleated RBC % 0, Atypical Lymphocytes 1+, Anisocytosis 1+ 03/02/22 05:55: Sodium 139, Potassium 3.5, Chloride 107, Carbon Dioxide 27.0, Anion Gap 5, BUN 11, Creatinine 0.68, Estim Creat Clear Calc 73.12, Est GFR (MDRD) Af Amer 112, Est GFR (MDRD) Non-Af 93, BUN/Creatinine Ratio 16.2, Glucose 175 H, Calcium 8.4 L, Magnesium 1.9 Micro: Microbiology 02/28/22 Unknown Tissue - Knee Gram Stain - Final 02/28/22 Unknown Tissue - Knee Wound Culture - Preliminary No growth-Final to follow 02/28/22 Unknown Tissue - Knee Anaerobic Culture - Preliminary No growth in 48 hours. 02/27/22 Unknown Fluid - Synovial (joint) Gram Stain - Final 02/27/22 Unknown Fluid - Synovial (joint) Body Fluid Culture - Preliminary No growth-Final to follow 02/27/22 Unknown Fluid - Synovial (joint) Anaerobic Culture - Preliminary No growth in 48 hours. 02/27/22 Unknown Fluid - Synovial (joint) Gram Stain - Final 02/27/22 Unknown Fluid - Synovial (joint) Body Fluid Culture - Preliminary No growth-Final to follow 02/27/22 Unknown Fluid - Synovial (joint) Anaerobic Culture - Preliminary No growth in 48 hours. 02/28/22 14:25 Tissue - Knee Gram Stain - Final 02/28/22 14:25 Tissue - Knee Wound Culture - Preliminary No growth-Final to follow 02/28/22 14:20 Tissue - Knee Gram Stain - Final 02/28/22 14:20 Tissue - Knee Wound Culture - Preliminary No growth-Final to follow 02/28/22 14:15 Tissue - Knee Gram Stain - Final 02/28/22 14:15 Tissue - Knee Wound Culture - Preliminary No growth-Final to follow 02/28/22 Unknown Tissue - Knee Gram Stain - Final 02/28/22 Unknown Tissue - Knee Wound Culture - Preliminary No growth-Final to follow 02/28/22 Unknown Tissue - Knee Gram Stain - Final 02/28/22 Unknown Tissue - Knee Wound Culture - Preliminary No growth-Final to follow 02/27/22 01:30 Urine, Clean Catch Urine Culture - Final Culture exhibits no growth. 02/27/22 01:38 Blood Culture (Wb) - Anticubital Right Blood Culture - Preliminary No growth in 48 hours. 02/27/22 01:14 Blood Culture (Wb) - Anticubital Left Blood Culture - Preliminary No growth in 48 hours. 02/27/22 04:45 Mucosa - Nasopharyngeal Respiratory Panel (PCR) - Final 02/27/22 01:10 Nasal Secretion SARS-CoV-2 & FLU Antigen (Rapid) - Final SARS-CoV-2 (COVID 19) Influenzae A Physical Exam Narrative GENERAL: cooperative HEENT: Atraumatic; EYES; Anicteric, Normal Conjunctiva NECK; supple, normal thyroid, RESPIRATORY: Diminished to auscultation CARDIOVASCULAR: Regular S1 S2, GI: soft, normoactive bowel sounds, : No Renal angle tenderness; EXTREMITIES: No edema, no clubbing, MUSCULOSKELETAL: Both knees in surgical dressing NEURO: Awake; no lateralizing signs. SKIN: No Rash PSYCH; Flat affect Assessment & Plan Assessment/Plan (1) Osteoarthritis: (2) Asthma: (3) GERD (gastroesophageal reflux disease): (4) Depression: (5) Sleep apnea: (6) Hyperlipemia, mixed: (7) Presence of stent in coronary artery: (8) Knee pain: PLAN: Patient is a 61-year-old lady admitted with bilateral knee pain with swelling and inability to walk. Imaging studies obtained of both knees demonstrated no acute findings but history of previous bilateral knee arthroplasty. Patient also tested positive for COVID-19 using a rapid test as well as influenza A. PCR however came back negative for both 1. Septic arthritis involving both knees in a patient with previous bilateral knee replacement . Patient presented with significant swelling and pain involving both knees. Consult was placed to Dr. Vernon with orthopedic surgery ? 02/28/2022 :Bilateral knee aspiration performed by Dr. Vernon the day prior came back highly suspicious for septic arthritis. Plan is for patient to undergo irrigation debridement polyethylene exchange of both knees. Consult was also placed to cardiology Dr. Davila given patient underlying history of coronary artery disease with previous stent placement 03/01/2022atient underwent Irrigation debridement, complete synovectomy and polyethylene exchange right total knee Irrigation debridement, complete synovectomy and polyethylene exchange left total knee performed by Dr. Vernon on 03/01/2022. Case was discussed with Dr. Webb with infectious disease plan is for patient to have PICC line placed for 6 weeks of IV antibiotics. Patient currently on ceftriaxone and vancomycin ? 03/02/2022;Patient seen pain is tolerable. Cultures still pending but so far negative growth to date patient was on prednisone started on admission discontinued. Case was discussed with Dr. Vernon the day prior he was of the opinion that bilateral inflammatory arthritis remains a differential diagnosis. Subsequently ordered MARY ANN with reflex panel 2. Transient hypoxia ? Following patient surgery patient was placed on noninvasive ventilation with BiPAP. Back to baseline this a.m. 3. Anemia - Secondary to acute blood loss anemia following surgery superimposed on chronic disorder monitoring H&H and transfuse if patient becomes symptomatic or hemoglobin falls below 7 4. Hypertension - Blood pressure controlled, home medications continued with dose adjustment as needed 5. Coronary artery disease with previous history of stent to proximal OM and LAD ? On recommended medications including beta-blockers antiplatelet therapy and statin therapy 6. Dyslipidemia -Patient is on statin therapy, continued at home dose 7. Tobacco dependence - Counseled on cessation, offered nicotine patch for tobacco cravings 8. Depression ? Patient is a bupropion discontinued 9 Obstructive sleep apnea ? Currently not on any PAP therapy 10. Inconclusive influenza A and COVID 19 ? Patient PCR came back negative for COVID 19 patient is currently in isolation without symptoms. Isolation subsequently discontinued 11. GERD ? On PPI 12. DVT prophylaxis Rivaroxaban Charges/Coding Visit Charges Inpatient E&M: 26209 Subs Hosp L2
[2022-03-02] MEDS: metFORMIN HCl 1,000 MG Tablet 1000 MG PO (08:22)
[2022-03-02] MEDS: Aspirin E.C. 81 MG Tablet PO (08:22)
[2022-03-02 09:35] VITALS: BP 131/60; PULSE 78; RESP 18; TEMP 36.9; O2SAT 95
[2022-03-02] MEDS: buPROPion (XL) 150 MG TABLET.XL PO (10:57)
[2022-03-02] MEDS: Cholecalciferol (Vit D3) 125 MCG CAPSULE (5,000 UNITS) PO (10:57)
[2022-03-02] MEDS: Pantoprazole Sodium 40 MG Tablet PO (10:57)
[2022-03-02] MEDS: Clopidogrel Bisulfate 75 MG Tablet PO (10:57)
[2022-03-02 10:59] VITALS: BP 147/57; PULSE 85
[2022-03-02] MEDS: Metoprolol Tartrate 25 MG Tablet PO (10:59)
[2022-03-02] MEDS: Senna/Docusate Sodium 1 Tablet 2 TABLET PO (10:59)
[2022-03-02] MEDS: Vancomycin IV 1,000 MG/200 ML BAG 200 MG IV (11:37)
--- NOTE | 2022-03-02 11:47 | CASEMGMT ---
Addendum entered by Pati Gomes 03/02/22 13:22: Scripts for vancomycin and rocephin obtained and placed with chart to go to Rehab unit. Per Martha RN, PICC nurse to be here about [address] PICC. Pt voices no further questions/concerns/needs. Smitha MACIEL CM Addendum entered by Pati Gomes 03/02/22 11:56: Pt/family updated on all, voice understanding. Dr. Miller and Dr. Webb aware. Smitha MACIEL CM Original Note: Call from Katty in rehab and pt has been approved to go to Rehab. Awaiting Dr. Webb for PICC placement and antibx order. CM to follow. Smitha MACIEL CM
--- NOTE | 2022-03-02 12:45 | DS.PCM_ITS ---
Providers Date of Admission: 02/27/22 Primary Care Physician: Dr. Angelique Tejada MD Consultations 02/27/22 10:38 Consult: Orthopedics Routine Consulting Provider: Gilberto Vernon Reason for Consult: Bilateral knee pain and swelling; patient of Dr. Segura EMERGENT Consult: No Notified: Yes Date Notified: 02/27/22 Time Notified: 11:14 Method of Notification: paged 02/27/22 17:45 Consult: Cardiology Routine Consulting Provider: Isac Davila Reason for Consult: pre op cardiac EMERGENT Consult: No Notified: Yes Date Notified: 02/27/22 Time Notified: 17:46 Method of Notification: Verbal 02/28/22 13:59 Consult: Infectious Disease Routine Consulting Provider: Wali Webb Reason for Consult: Bilateral knee periprosthetic joint infections EMERGENT Consult: No Notified: Yes Date Notified: 02/28/22 Time Notified: 14:07 Method of Notification: Text Reason For Visit: BILATERAL KNEE PAIN, COVID & INFLUENZA POSITIVE Diagnosis Discharge Diagnosis (1) Osteoarthritis: Status: Acute Code(s): M19.90 - Unspecified osteoarthritis, unspecified site (2) Asthma: Status: Acute Code(s): J45.909 - Unspecified asthma, uncomplicated (3) GERD (gastroesophageal reflux disease): Status: Acute Code(s): K21.9 - Gastro-esophageal reflux disease without esophagitis (4) Depression: Status: Acute Code(s): F32.9 - Major depressive disorder, single episode, unspecified (5) Sleep apnea: Status: Acute Code(s): G47.30 - Sleep apnea, unspecified (6) Hyperlipemia, mixed: Status: Chronic Code(s): E78.2 - Mixed hyperlipidemia (7) Presence of stent in coronary artery: Status: Acute Code(s): Z95.5 - Presence of coronary angioplasty implant and graft (8) Knee pain: Status: Acute Code(s): M25.569 - Pain in unspecified knee Medications at Discharge Home Medications albuterol sulfate 1 puff INHALATION Q6H PRN PRN 12/16/14 metformin 1,000 mg PO BID 12/16/14 pantoprazole 40 mg PO DAILY tab 10/11/18 aspirin 81 mg tablet,delayed release 81 mg PO DAILY #90 tab 08/27/19 pravastatin 80 mg tablet 80 mg PO QHS #90 tab 08/27/19 zolpidem 10 mg tablet 10 mg PO QHS 08/27/19 bupropion HCl 150 mg 24 hr tablet, extended release 150 mg PO QAM 11/30/19 nitroglycerin 0.4 mg sublingual tablet 0.4 mg SUBLINGUAL Q5M PRN #25 tab 11/30/19 metoprolol tartrate 25 mg tablet 25 mg PO BID #180 tab 09/28/20 cholecalciferol (vitamin D3) 125 mcg (5,000 unit) tablet 5,000 unit PO DAILY tab 03/10/21 clopidogrel 75 mg tablet 75 mg PO DAILY #90 tab 06/09/21 acetaminophen 1,000 mg PO Q8 #0 tab 03/02/22 ceftriaxone 2 g IV DAILY #40 ea 03/02/22 nut.tx.comp. immune systm,reg [Ensure Surgery] 237 ml PO TIDCM #0 ml 03/02/22 oxycodone 5 mg PO Q4H PRN PRN #0 tab 03/02/22 rivaroxaban [Xarelto] 10 mg PO DAILY@0600 #0 tab 03/02/22 sennosides-docusate sodium [Stool Softener-Stimulant Laxat] 2 tab PO BID #0 tab 03/02/22 vancomycin in 0.9 % sodium chl 1 g IV Q12H 40 Days #96243 ml 03/02/22 Hospital Course Operations total knee replacement (Irrigation debridement, complete synovectomy and polyethylene exchange right total knee Irrigation debridement, complete synovectomy and polyethylene exchange left total knee) Summary of Care Provided Minutes Spent on Discharge: 45 Hospital Course: Patient is a 61-year-old lady admitted with bilateral knee pain with swelling and inability to walk. Imaging studies obtained of both knees demonstrated no acute findings but history of previous bilateral knee arthroplasty. Patient also tested positive for COVID-19 using a rapid test as well as influenza A. PCR however came back negative for both 1. Septic arthritis involving both knees in a patient with previous bilateral knee replacement . Patient presented with significant swelling and pain involving both knees. Consult was placed to Dr. Vernon with orthopedic surgery ? 02/28/2022 :Bilateral knee aspiration performed by Dr. Vernon the day prior came back highly suspicious for septic arthritis. Plan is for patient to und ergo irrigation debridement polyethylene exchange of both knees. Consult was also placed to cardiology Dr. Davila given patient underlying history of coronary artery disease with previous stent placement 03/01/2022atient underwent Irrigation debridement, complete synovectomy and polyethylene exchange right total knee Irrigation debridement, complete synovectomy and polyethylene exchange left total knee performed by Dr. Vernon on 03/01/2022. Case was discussed with Dr. Webb with infectious disease plan is for patient to have PICC line placed for 6 weeks of IV antibiotics. Patient currently on ceftriaxone and vancomycin ? 03/02/2022;Patient seen pain is tolerable. Cultures still pending but so far negative growth to date patient was on prednisone started on admission discontinued. Case was discussed with Dr. Vernon the day prior he was of the opinion that bilateral inflammatory arthritis remains a differential diagnosis. Subsequently ordered MARY ANN with reflex panel 2. Transient hypoxia ? Following patient surgery patient was placed on noninvasive ventilation with BiPAP. Back to baseline this a.m. 3. Anemia - Secondary to acute blood loss anemia following surgery superimposed on chronic disorder monitoring H&H and transfuse if patient becomes symptomatic or hemoglobin falls below 7 4. Hypertension - Blood pressure controlled, home medications continued with dose adjustment as needed 5. Coronary artery disease with previous history of stent to proximal OM and LAD ? On recommended medications including beta-blockers antiplatelet therapy and statin therapy 6. Dyslipidemia -Patient is on statin therapy, continued at home dose 7. Tobacco dependence - Counseled on cessation, offered nicotine patch for tobacco cravings 8. Depression ? Patient is a bupropion discontinued 9 Obstructive sleep apnea ? Currently not on any PAP therapy 10. Inconclusive influenza A and COVID 19 ? Patient PCR came back negative for COVID 19 patient is currently in isolation without symptoms. Isolation subsequently discontinued 11. GERD ? On PPI 12. DVT prophylaxis Rivaroxaban 13. Physical deconditioning - Requested for PT OT eval and outreach and education social worker to assist with discharge planning ?Patient was transferred to inpatient rehab once insurance precertification was obtained Physical Exam Narrative GENERAL: cooperative HEENT: Atraumatic; EYES; Anicteric, Normal Conjunctiva NECK; supple, normal thyroid, RESPIRATORY: Diminished to auscultation CARDIOVASCULAR: Regular S1 S2, GI: soft, normoactive bowel sounds, : No Renal angle tenderness; EXTREMITIES: No edema, no clubbing, MUSCULOSKELETAL: Both knees in surgical dressing NEURO: Awake; no lateralizing signs. SKIN: No Rash PSYCH; Flat affect Weight / BMI Weight Weight: 84.8 kg Body Mass Index (BMI) 32.1 ABG / Lab / Microbiology Data Result Diagrams: 03/02/22 05:55 03/02/22 05:55 Laboratory: Laboratory Results - last 24 hr 03/01/22 16:56: POC Glucose 319 H 03/01/22 20:28: POC Glucose 314 H 03/02/22 05:55: WBC 8.8, RBC 3.47 L, Hgb 9.5 L, Hct 30.4 L, MCV 87.6, MCH 27.4, MCHC 31.3 L, RDW Std Deviation 47.8 H, RDW Coeff of Jossy 15.0 H, Plt Count 258, MPV 10.3, Immature Gran % (Auto) 0.500, Neut % (Auto) 64.9, Lymph % (Auto) 24.0, [place] % (Auto) 8.1, Eos % (Auto) 2.0, Baso % (Auto) 0.5, Absolute Neuts (auto) 5.7, Absolute Lymphs (auto) 2.12, Nucleated RBC % 0, Atypical Lymphocytes 1+, An isocytosis 1+ 03/02/22 05:55: Sodium 139, Potassium 3.5, Chloride 107, Carbon Dioxide 27.0, Anion Gap 5, BUN 11, Creatinine 0.68, Estim Creat Clear Calc 73.12, Est GFR (MDRD) Af Amer 112, Est GFR (MDRD) Non-Af 93, BUN/Creatinine Ratio 16.2, Glucose 175 H, Calcium 8.4 L, Magnesium 1.9 Microbiology: Microbiology 02/27/22 Unknown Fluid - Synovial (joint) Gram Stain - Final 02/27/22 Unknown Fluid - Synovial (joint) Body Fluid Culture - Preliminary No growth-Final to follow 02/27/22 Unknown Fluid - Synovial (joint) Anaerobic Culture - Preliminary No growth in 48 hours. 02/27/22 Unknown Fluid - Synovial (joint) Gram Stain - Final 02/27/22 Unknown Fluid - Synovial (joint) Body Fluid Culture - Preliminary No growth-Final to follow 02/27/22 Unknown Fluid - Synovial (joint) Anaerobic Culture - Preliminary No growth in 48 hours. 02/28/22 Unknown Tissue - Knee Gram Stain - Final 02/28/22 Unknown Tissue - Knee Wound Culture - Preliminary No growth-Final to follow 02/28/22 Unknown Tissue - Knee Anaerobic Culture - Preliminary No growth in 48 hours. 02/28/22 14:25 Tissue - Knee Gram Stain - Final 02/28/22 14:25 Tissue - Knee Wound Culture - Preliminary No growth-Final to follow 02/28/22 14:20 Tissue - Knee Gram Stain - Final 02/28/22 14:20 Tissue - Knee Wound Culture - Preliminary No growth-Final to follow 02/28/22 14:15 Tissue - Knee Gram Stain - Final 02/28/22 14:15 Tissue - Knee Wound Culture - Preliminary No growth-Final to follow 02/28/22 Unknown Tissue - Knee Gram Stain - Final 02/28/22 Unknown Tissue - Knee Wound Culture - Preliminary No growth-Final to follow 02/28/22 Unknown Tissue - Knee Anaerobic Culture - Preliminary No growth in 48 hours. 02/28/22 Unknown Tissue - Knee Gram Stain - Final 02/28/22 Unknown Tissue - Knee Wound Culture - Preliminary No growth-Final to follow 02/28/22 Unknown Tissue - Knee Anaerobic Culture - Preliminary No growth in 48 hours. 02/27/22 01:30 Urine, Clean Catch Urine Culture - Final Culture exhibits no growth. 02/27/22 01:38 Blood Culture (Wb) - Anticubital Right Blood Culture - Pr eliminary No growth in 48 hours. 02/27/22 01:14 Blood Culture (Wb) - Anticubital Left Blood Culture - Preliminary No growth in 48 hours. 02/27/22 04:45 Mucosa - Nasopharyngeal Respiratory Panel (PCR) - Final 02/27/22 01:10 Nasal Secretion SARS-CoV-2 & FLU Antigen (Rapid) - Final SARS-CoV-2 (COVID 19) Influenzae A D/C Instructions Discharge Diet: No restrictions Discharge Activity: Return to Normal Activity Call your doctor if you observe: Fever of 101 or Higher, Shortness of breath, Fainting spells and Chest pain Meaningful Use Info Meaningful Use Diagnoses (Choose all that apply): None applicable Discharge Plan Admission Admit Date/Time: 02/27/22 04:02 Attending Provider: Pepe Miller Primary Care Provider: Angelique Tejada Consulting Providers: Isac Molina ; Gilberto Vernon ; Isac Davila ; Wali Webb Instructions Additional Instructions / Restrictions: Okay to remove dressing on March 07, 2022. Do not submerge underwater for 6 weeks postoperatively. Okay to shower and get incision wet. Weightbearing as tolerated with walker. Follow-up with Dr. Gilberto Vernon 2 weeks postoperatively for incision check and staple removal. Discharge Orders/Prescriptions Prescriptions: New vancomycin in 0.9 % sodium chl 1 gram/200 mL piggyback 1 g IV Q12H 40 Days Qty: 38393 RF: 0 ceftriaxone 2 gram recon soln 2 g IV DAILY Qty: 40 RF: 0 acetaminophen 500 mg Tablet 1,000 mg PO Q8 Qty: 0 RF: 0 sennosides-docusate sodium [Stool Softener-Stimulant Laxat] 8.6-50 mg Tablet 2 tab PO BID Qty: 0 RF: 0 Ensure Surgery 0.08-1.4 gram-kcal/mL Liquid 237 ml PO TIDCM Qty: 0 RF: 0 Xarelto 10 mg Tablet 10 mg PO DAILY@0600 Qty: 0 RF: 0 oxycodone 5 mg Tablet 5 mg PO Q4H PRN PRN (Reason: Pain Score 6-10) Qty: 0 RF: 0 Continued zolpidem 10 mg tablet 10 mg PO QHS RF: 0 pravastatin 80 mg tablet 80 mg PO QHS Qty: 90 RF: 3 aspirin 81 mg tablet,delayed release (DR/EC) 81 mg PO DAILY Qty: 90 RF: 3 bupropion HCl 150 mg tablet extended release 24 hr 150 mg PO QAM RF: 0 nitroglycerin 0.4 mg tablet, sublingual 0.4 mg SUBLINGUAL Q5M PRN (Reason: Chest Pain) Qty: 25 RF: 3 cholecalciferol (vitamin D3) 125 mcg (5,000 unit) tablet 5,000 unit PO DAILY RF: 0 metformin 1,000 MG tablet 1,000 mg PO BID RF: 0 albuterol sulfate 1 PUFF inhaler 1 puff INHALATION Q6H PRN PRN (Reason: Asthma) RF: 0 pantoprazole 40 MG tablet 40 mg PO DAILY RF: 0 metoprolol tartrate 25 mg tablet 25 mg PO BID Qty: 180 RF: 4 clopidogrel 75 mg tablet 75 mg PO DAILY Qty: 90 RF: 3 Referrals / Follow Up: Angelique Tejada MD [Primary Care Provider] - Within 2 Weeks Wali Webb MD [STAFF PHYSICIAN] - Within 1 Week Gilberto Vernon MD [STAFF PHYSICIAN] - Within 1 Week Disposition Disposition (needs filled in before D/C Order can be placed): Inpatient Rehab Unit/Facility Charges/Coding Visit Charges Inpatient E&M: 90037 Disch Hosp
--- NOTE | 2022-03-02 14:54 | PCM.PN.ID ---
Physical Exam Narrative Feeling ok, no fever, pain controlled, no n/v/d. Const alert and no apparent distress General Appearance: cooperative Resp normal air movement and clear to auscultation bilaterally Cardio regular rate and regular rhythm GI soft to palpation, non-tender and non-distended Skin no rashes or lesions noted ID ID: Route of nutrition/ use of supplements: [] Nutritional Intake: [] IV Site: [] Rivas Catheter: [] Assessment & Plan Assessment/Plan (1) Painful total knee replacement, right: (2) Painful total knee replacement, left: PLAN: Now s/p bilateral knee I&D, synovectomy, and poly exchange 02/28/[address] Vernon. Aspiration cx and surg cx neg so far. Abx were held prior to surgery. Will treat with iv vanc/ceftriaxone, picc today and 6 weeks iv abx with stop date 04/11/22 then intermediate po. Requested micro lab hold cxs for 14 days. Will follow,wrote rx, d/w caser shoe parts
[2022-03-02 15:00] VITALS: BP 159/71; PULSE 79; RESP 16; TEMP 36.9; O2SAT 98
--- NOTE | 2022-03-02 15:13 | NURSING ---
Report called to JERZY Harper RN. Pt going to room 3.
== END 2022-03-02 15:36 | DRG 464 ==
LOC: ED 01:40 → PCU 04:18
PROVIDERS: Anesthesiology; Specialist; Admitting Provider Family Medicine; Emergency Provider Emergency Medicine; PCP Internal Medicine; Visit Provider Internal Medicine
PROC: 0SPC09Z Removal of Liner from Right Knee Joint, Open Approach (ICD-10-PCS; CPT 27301; principal; 2022-02-28 11:40)
DX: T84.53XA Infection and inflammatory reaction due to internal right knee prosthesis, initial encounter (principal); M00.9 Pyogenic arthritis, unspecified; T84.54XA Infection and inflammatory reaction due to internal left knee prosthesis, initial encounter; T84.84XA Pain due to internal orthopedic prosthetic devices, implants and grafts, initial encounter; D62 Acute posthemorrhagic anemia; E87.1 Hypo-osmolality and hyponatremia; E11.9 Type 2 diabetes mellitus without complications; I25.10 Atherosclerotic heart disease of native coronary artery without angina pectoris; E87.6 Hypokalemia; E78.2 Mixed hyperlipidemia; I10 Essential (primary) hypertension; K21.9 Gastro-esophageal reflux disease without esophagitis; J45.909 Unspecified asthma, uncomplicated; G47.33 Obstructive sleep apnea (adult) (pediatric); F17.210 Nicotine dependence, cigarettes, uncomplicated; I35.8 Other nonrheumatic aortic valve disorders; R09.02 Hypoxemia; F32.A Depression, unspecified; Z79.84 Long term (current) use of oral hypoglycemic drugs; Z79.02 Long term (current) use of antithrombotics/antiplatelets; Y83.1 Surgical operation with implant of artificial internal device as the cause of abnormal reaction of the patient, or of later complication, without mention of misadventure at the time of the procedure; Z79.82 Long term (current) use of aspirin; Z79.899 Other long term (current) drug therapy; Z96.653 Presence of artificial knee joint, bilateral; Z95.5 Presence of coronary angioplasty implant and graft
CPT/HCPCS: 36415; 36569; 36600; 71045; 73560; 80048; 80053; 81001; 82803; 82962; 83036; 83735; 84550; 85025; 85652; 86141; 86850; 86900; 86901; 87015; 87040; 87070; 87075; 87077; 87086; 87102; 87116; 87176; 87186; 87205; 87206; 87428; 87633; 87635; 89050; 89051; 89060; 93005; 93306; 94002; 94640; 97162; 97164; 97166; 97168; 99251; 99252; 99285; 99406; C1776; J7030; J7040; J7050; J7120; A4216; G0463; J0696; J2405; U0003; U0005

== ENCOUNTER 2022-03-02 15:58 | Inpatient (IN) | payer OTHER, MEDICARE, SELFPAY ==
[2018-10-10 13:42] VITALS: BMI 32.9
[2022-03-02 16:05] VITALS: BP 136/56; PULSE 74; RESP 18; TEMP 36.7; O2SAT 95
--- NOTE | 2022-03-02 16:09 | EX.PCM.HP.RE ---
HPI - General General Date of Admission: 03/02/22 HPI Narrative MICKI PACK, is a 61 YO F with a PMH of asthma, CAD, tobacco dependence, Depression, HLD, DM II (diagnosed in 2009 or 2010), hx of PTCA (03/04/19), diverticulosis, KALI (not receiving tx), COVID one month prior to ER presentation and OA who presented to the ED at [facility] on 02/27/22 stating that when she awoke that morning she had marked swelling of both knees. She had been on Augmentin for a sinus infection for a few days. The sx included green nasal DC, PND, RYAN, pain in her teeth. She was unable to ambulate due to severe pain. HX is positive for BL TKR's. Temp in the ER was 100F and she was tachycardic. PE was unremarkable with the exception of BL knee effusions with marked pain with even Light touch. There was no erythema of either knee. Significant lab included an elevated WBC count at 14.8 (but 4 hours later the WBC count was 9.7 and the following day it was 8). HGB was initially 12 but, it has been low since she was hydrated. The sed rate was 33 in the ED and the CRP was 190. Sodium was low at 135 and the K was low at 3.2. The BUN was 17 with a creat of 0.63. HGBA1C was less than ideal at 7.7. UA was elevated at 7.6. A arthrocentesis was done and the WBC count was high in both knees. There were no crystals and no bacteria seen. COVID and FLU rapid tests were + but the PCR's for COVID and Flu were negative. Plain XRAYS of the R and L knee had no acute findings. She was admitted to the hospitalist service and Dr. Vernon was consulted. His impression was BL periprosthetic bacterial infections and he recommended surgery. She went to surgery on 02/28/22 and had BL synovectomy, irrigation/debridement and polyethylene exchange of both knees. Post operatively on the ID was consulted and she was seen by Dr. Webb who recommended Rocephin and Vancomycin empirically. All cultures have been negative to date. A PICC line was inserted and the plan is for 6 weeks of IV antibiotics then LT PO antibiotics. She was transferred to the inpt acute rehab unit at [facility] on 03/02/22 for 3 H of therapy daily to restore mobility. She sees Dr. Davila for cardiology care and she had a cath in March of 2021 which showed a normal EF, patent stent to the Prox LAD, mid LAD, LCX OM2 and LCX OM3. Continued medical therapy was recommended. Dr. Tejada is her PCP. She had a carotid US done in November of 2021 and had some intimal thickening but no significant atherosclerotic plaque. She had a CT of the chest in August of 2020 to follow up a pleural based nodule in the lateral aspect of the RUL and it was read as a stable 2.8 mm nodule. Diffuse enlargement of the L lobe of the thyroid was an incidental finding and she also has diffuse emphysematous changes in both lungs, worse in the upper lobes. Continued annual screening of the lung nodule was recommended. [facility] Medical History (Updated 03/04/22 @ 14:[address] Micki Veliz, ) Asthma Atherosclerosis of deering coronary artery of deering heart without angina pectoris Bruit of left carotid artery CAD (coronary artery disease), deering coronary artery Cigarette nicotine dependence Depression Diabetes Essential hypertension GERD (gastroesophageal reflux disease) Hyperlipemia, mixed Hypertension Lung nodule, solitary Osteoarthritis Pneumonia Presence of stent in coronary artery (~03/04/19) Sleep apnea Home Medications albuterol sulfate 1 puff INHALATION Q6H PRN PRN 12/16/14 [History Last Taken 08/14/16] metformin 1,000 mg PO BID 12/16/14 [History Last Taken 03/20/21] zolpidem 10 mg tablet 10 mg PO QHS 08/27/19 [History Last Taken Unknown] bupropion HCl 150 mg 24 hr tablet, extended release 150 mg PO QAM 11/30/19 [History Last Taken 12/23/19] nitroglycerin 0.4 mg sublingual tablet 0.4 mg SUBLINGUAL Q5M PRN #25 tab 11/30/19 [Rx Last Taken Unknown] cholecalciferol (vitamin D3) 125 mcg (5,000 unit) tablet 5,000 unit PO DAILY tab 03/10/21 [History Last Taken Unknown] acetaminophen 1,000 mg PO Q8 03/02/22 [History Last Taken Unknown] aspirin 81 mg PO DAILY 03/02/22 [History Last Taken Unknown] ceftriaxone 2 g IV DAILY 03/02/22 [History Last Taken Unknown] clopidogrel 75 mg PO DAILY 03/02/22 [History Last Taken Unknown] metoprolol tartrate 25 mg PO BID 03/02/22 [History Last Taken Unknown] nut.tx.comp. immune systm,reg [Ensure Surgery] 237 ml PO TIDCM 03/02/22 [History Last Taken Unknown] oxycodone 5 mg PO Q4H PRN PRN #0 tab 03/02/22 [Rx Last Taken Unknown] pantoprazole 40 mg PO DAILY 03/02/22 [History Last Taken Unknown] pravastatin 80 mg PO QHS 03/02/22 [History Last Taken Unknown] rivaroxaban [Xarelto] 10 mg PO DAILY@0600 03/02/22 [History Last Taken Unknown] sennosides-docusate sodium [Stool Softener-Stimulant Laxat] 2 tab PO BID 03/02/22 [History Last Taken Unknown] vancomycin in 0.9 % sodium chl 1 g IV Q12H 03/02/22 [History Last Taken Unknown] Allergy/AdvReac Type Severity Reaction Status Date / Time carbamazepine Allergy unknown Verified 11/06/21 14:28 colestipol Allergy unknown Verified 11/06/21 14:28 diltiazem Allergy Unknown Verified 11/06/21 14:28 levofloxacin [From Levaquin] AdvReac Upset Verified 11/06/21 14:28 Stomach meperidine HCl [From Demerol] AdvReac Vomiting Verified 11/06/21 14:28 rosuvastatin calcium AdvReac Pain in Verified 11/06/21 14:28 [From Crestor] joints Tetracyclines AdvReac Upset Verified 11/06/21 14:28 Stomach tramadol AdvReac Diarrhea Verified 11/06/21 14:28 Family History Mother CVA (cerebral vascular accident) Diabetes CAD (coronary artery disease) Brother Myocardial infarction Cancer History of PTCA Diabetes Surgical History (Updated 03/04/22 @ 14:[address] 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 History of cholecystectomy History of ear surgery History of hysterectomy History of left heart catheterization (LHC) (~03/21/21) History of thyroid nodule History of tonsillectomy History of total bilateral knee replacement Hx of sinus surgery Presence of coronary angioplasty implant and graft (~03/04/19) Social History household members: spouse housing: other Smoking Status: Current every day smoker tobacco type: cigarettes alcohol intake: never substance use type: does not use caffeine: Yes Type: coffee Number of servings: 3 what type of physical activity do you participate in: other details: cardiac rehab frequency: 3-4 times per week duration: 15-30 minutes/day seatbelt use: always do you feel safe at home: Yes ROS Constitutional Constitutional: Reports weakness; Denies anorexia, change in weight, chills, fatigue, fever(s) or night sweats Eyes Eyes: Denies blurry vision, change in vision, eye pain or loss of vision ENT HEENT: Denies abnormal hearing, dysphagia, headache(s), hearing loss, nasal congestion or sore throat Cardiovascular Cardiovascular: Denies chest pain, dyspnea on exertion, edema, lightheadedness, orthopnea, palpitations, paroxysmal nocturnal dyspnea or syncope Respiratory/Chest Respiratory/Chest: Denies cough, dyspnea, shortness of breath at rest, shortness of breath with exertion or wheezing Gastrointestinal Gastrointestinal: Denies abdominal pain, constipation, diarrhea, dyspepsia, hematemesis, hematochezia, nausea or vomiting Genitourinary Genitourinary: Denies dysuria, hematuria, nocturia, urinary frequency, urinary hesitancy, urinary incontinence or urinary urgency Musculoskeletal Musculoskeletal: Reports joint pain and joint swelling; Denies back pain or neck pain Integumentary Integumentary: Reports other Details: BL knee incisions from recent explantation, BL total synovectomy And polyethylene exchange. ; Denies jaundice or rash Neurologic Neurologic: Reports abnormal gait; Denies confusion, disequilibrium, dizziness, focal weakness, headache(s), paresthesias, seizures or tremor(s) Psychiatric Psychiatric: Reports depression; Denies anxiety, homicidal ideation or suicidal ideation Endocrine Endocrinology: Reports other Details: checks her BS only once a day and that is in the AM ; Denies change in body appearance, polydipsia or polyuria Hematologic/Lymphatic Hematologic/Lymphatic: Denies easy bleeding, easy bruising or lymphadenopathy Allergic/Immunologic Allergic/Immunologic: Denies rhinitis, eczemia or asthma Vital Signs Vital Signs Vital Signs: 03/02/22 16:05 Temperature 98.1 F Temperature Source Oral Pulse Rate 74 Respiratory Rate 18 Blood Pressure 136/56 H Blood Pressure Mean 82 Blood Pressure Source Monitor Blood Pressure Position Semi-Fowlers Blood Pressure Location Left Arm Pulse Ox 95 Oxygen Delivery Method Room Air Indicators for Scoring Admitted with or Primary Diagnosis of CVA/Stroke: No Hx of CVA/Stroke: No Physical Exam Const alert, oriented x3, no apparent distress and well nourished Constitutional Narrative: lying in bed and appears comfortable General Appearance: cooperative and well developed HEENT normocephalic, moist oral mucous membranes and oropharynx normal HEENT Narrative: No obvious thrush and she denies painful swallowing, sore mouth. Eyes PERRL and EOMs intact bilaterally Neck supple Neck Narrative: Soft R carotid bruit vs radiation of systolic MM at the 2nd RICS. Lymph Lymphatic: no lymphedema noted Resp normal respiratory effort, normal air movement and clear to auscultation bilaterally Resp Narrative: Able to speak in complete sentences. Effort and Inspection: Negative for tachypneic, respiratory distress or labored Auscultation: Negative for rales, rhonchi or wheezes Cardio regular rate, regular rhythm, S1 normal heart sound, S2 normal heart sound and no gallops Heart Sounds: murmur systolic II/ crescendo-decrescendo early left sternal border, sternal notch, apex and other (Second right intercostal space. No axillary MM appreciated. ) to the left axilla GI normal to inspection, nondistended, normoactive bowel sounds, soft to palpation and non-tender GI Narrative: No guarding with palpation Extremity no calf tenderness Extremity Narrative: Both knees are swollen, L>R. No erythema. Silver post-op dressings are in place. There is no DC or blood on the bandages. General Extremity: Negative for clubbing or cyanosis Skin General Skin Exam: no breakdown Rashes: no rashes Neuro CN's II-XII intact bilaterally and no focal motor deficits Speech: speech normal Psych Psych Narrative: Flat affect. 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: (4) Aftercare following explantation of joint prosthesis, staged procedure: (5) Diabetes: QUALIFIERS: Diabetes mellitus type: type 2 Diabetes mellitus complication status: without complication Diabetes mellitus long term care social worker insulin use: without long term care social worker use Qualified Code(s): E11.9 - Type 2 diabetes mellitus without complications; E11.9 - Type 2 diabetes mellitus without complications; E11.9 - Type 2 diabetes mellitus without complications; E11.9 - Type 2 diabetes mellitus without complications (6) Cigarette nicotine dependence: QUALIFIERS: Substance use status: uncomplicated Qualified Code(s): F17.210 - Nicotine dependence, cigarettes, uncomplicated (7) Presence of stent in coronary artery: (8) Asthma: QUALIFIERS: Asthma severity: unspecified severity Asthma persistence: intermittent Asthma complication type: uncomplicated Qualified Code(s): J45.20 - Mild intermittent asthma, uncomplicated (9) Osteoarthritis: QUALIFIERS: Osteoarthritis location: multiple joints Osteoarthritis type: primary Qualified Code(s): M15.9 - Polyosteoarthritis, unspecified (10) GERD (gastroesophageal reflux disease): QUALIFIERS: Esophagitis presence: without esophagitis Qualified Code(s): K21.9 - Gastro-esophageal reflux disease without esophagitis (11) Depression: QUALIFIERS: Depression Type: unspecified Qualified Code(s): F32.A - Depression, unspecified (12) Sleep apnea: QUALIFIERS: Sleep apnea type: unspecified type Qualified Code(s): G47.30 - Sleep apnea, unspecified (13) Essential hypertension: (14) Cardiac murmur: (15) Hyperlipemia, mixed: (16) Atherosclerosis of deering coronary artery of deering heart without angina pectoris: (17) Normocytic normochromic anemia: PLAN: PLAN PT for gait stability OT for ADL's Analgesics as needed Bowel protocol Fall precautions Assess for Anxiety/Depression GI prophylaxis with pantoprazole DVT prophylaxis with Xarelto 10 mg daily Follow up with Dr. Vernon, Dr. Webb, Dr. Davila and Dr. Tejada following DC from Rehab Weekly CBC with differential, BMP, ESR and CRP. Smoking cessation was discussed with Micki Pack and she was advised that cigarette smoking is the leading preventable cause of mortality in the [place]. The 3 major causes of smoking-related mortality are atherosclerotic cardiovascular diseases, lung cancer and COPD. Up to 1/2 of all smokers can expect to of a smoking related illness. Smoking also increases the risk for Infections, Diabetes, Osteoporosis, Reproductive disorders, PUD, peridontal disease and postoperative complications. Nicotine is a potent psychoactive drug that causes physical dependence and tolerance. Nicotine withdrawal sx including increased appetite or weight gain, depressed mood, insomnia, irritability, frustration, anxiety, difficulty concentrating and restlessness were discussed. Micki was advised that the withdrawal symptoms generally peak in the first 3 days and subside over the next 3-4 weeks but cravings may continue for months to years. Both Behavioral and pharmacologic therapies were discussed with the patient and she was given an opportunity to ask questions. All questions were answered and she was made aware of the smoking cessation program at [facility]. Micki refused a Nicotine patch and also refuses an increase in Wellbutrin. She likes to smoke and has no intention of quitting. Micki is already asking when she can leave and tells me she does not know why she is in rehab. I explained that we need to make sure pain is adequately controlled and that the SW needs some time to arrange for the IV antibiotics and nursing needs time to teach her how to flush the PICC and administer the antibiotics. Charges/Coding Visit Charges Inpatient E&M: 50354 Init Hosp L3
[2022-03-02 16:50] LABS: Bedside Glucose 282 mg/dL (74-106)
[2022-03-02] MEDS: Ensure Surgery 237 ML LIQUID PO (17:43)
[2022-03-02 19:24] VITALS: BP 141/60; PULSE 70; RESP 18; TEMP 36.7; O2SAT 97
[2022-03-02 21:05] VITALS: BP 141/60; PULSE 70
[2022-03-02] MEDS: metFORMIN HCl 1,000 MG Tablet 1000 MG PO (21:05)
[2022-03-02] MEDS: Metoprolol Tartrate 25 MG Tablet PO (21:05)
[2022-03-02] MEDS: Zolpidem Tartrate 5 MG Tablet 10 MG PO (21:05)
[2022-03-02] MEDS: Pravastatin 80 MG Tablet PO (21:06)
[2022-03-02] MEDS: Senna/Docusate Sodium 1 Tablet 2 TABLET PO (21:06)
[2022-03-02] MEDS: Acetaminophen 500 MG Tablet 1000 MG PO (21:06)
[2022-03-02] MEDS: oxyCODONE 5 MG Tablet PO (21:07)
[2022-03-02 21:18] VITALS: O2SAT 98
[2022-03-02 21:45] LABS: Bedside Glucose 278 mg/dL (74-106)
[2022-03-02 22:11] LABS: Vancomycin, Trough Level 15.1 ug/mL (5.0-15.0)
[2022-03-02] MEDS: 0.9% Saline Lock 10 ML Syringe IV (23:10)
--- NOTE | 2022-03-02 23:10 | PCM.RX.CS ---
Consult Pharmacy has been consulted to manage selected antiobiotic: Vancomycin Type of Consult: Follow-up Labs: Vancomycin Trough 15.1 ug/mL (5.0-15.0) H 03/02/22 21:42 Goal Trough: 15-20 mcg/mL Pharmacy Plan for Drug Dosing: Pharmacy Service will continue to monitor and adjust dosing as required. TROUGH 15.1 @ 11 HRS. NO CHANGES, FOLLOW UP TROUGH IN 2 DAYS Follow-Up Labs: Trough Vancomycin Labs to be done on [date and time ordered]: 03/04 @ 2200
[2022-03-02] MEDS: Vancomycin IV 1,000 MG/200 ML BAG 200 MG IV (23:12)
[2022-03-03] MEDS: 0.9% Saline Lock 10 ML Syringe IV ×4 (00:30→22:29)
[2022-03-03] MEDS: oxyCODONE 5 MG Tablet PO ×6 (01:14→22:34)
[2022-03-03] MEDS: Acetaminophen 500 MG Tablet 1000 MG PO ×3 (05:16→22:27)
[2022-03-03] MEDS: Rivaroxaban 10 MG Tablet PO (05:18)
[2022-03-03 06:41] LABS: Bedside Glucose 205 mg/dL (74-106)
[2022-03-03 08:00] VITALS: BP 147/57; PULSE 72; RESP 16; TEMP 36.3; O2SAT 97
[2022-03-03] MEDS: Pantoprazole Sodium 40 MG Tablet PO (08:02)
[2022-03-03] MEDS: metFORMIN HCl 1,000 MG Tablet 1000 MG PO ×2 (08:02→16:51)
[2022-03-03] MEDS: Aspirin E.C. 81 MG Tablet PO (08:03)
[2022-03-03 08:05] VITALS: PULSE 70
[2022-03-03] MEDS: buPROPion (XL) 150 MG TABLET.XL PO (08:05)
[2022-03-03] MEDS: Metoprolol Tartrate 25 MG Tablet PO ×2 (08:05→22:28)
[2022-03-03] MEDS: Clopidogrel Bisulfate 75 MG Tablet PO (08:05)
[2022-03-03] MEDS: Cholecalciferol (Vit D3) 125 MCG CAPSULE (5,000 UNITS) PO (08:06)
[2022-03-03] MEDS: Vancomycin IV 1,000 MG/200 ML BAG 200 MG IV ×2 (10:07→22:31)
[2022-03-03 11:31] LABS: Bedside Glucose 277 mg/dL (74-106)
[2022-03-03 17:11] LABS: Bedside Glucose 191 mg/dL (74-106)
[2022-03-03] MEDS: Zolpidem Tartrate 5 MG Tablet 10 MG PO (22:26)
[2022-03-03 22:28] VITALS: BP 147/73; PULSE 75
[2022-03-03] MEDS: Senna/Docusate Sodium 1 Tablet 2 TABLET PO (22:28)
[2022-03-03] MEDS: Pravastatin 80 MG Tablet PO (22:29)
--- NOTE | 2022-03-03 22:30 | NURSING ---
Issues with glucometer. Level not checked. Pt asymptomatic. Offered hs snack and refuses. Will continue to monitor.
[2022-03-04] MEDS: oxyCODONE 5 MG Tablet PO ×4 (02:40→20:19)
--- NOTE | 2022-03-04 04:15 | NURSING ---
Pt has not slept well d/t pain and status of dc planning. Informs this nurse she is ready to go home. IV atb through 04/11. Left vm for ABBI Gonzalez, to follow-up.
[2022-03-04] MEDS: Rivaroxaban 10 MG Tablet PO (06:42)
[2022-03-04] MEDS: Acetaminophen 500 MG Tablet 1000 MG PO ×3 (06:42→22:13)
--- NOTE | 2022-03-04 06:53 | NURSING ---
Offered to take pt to the bathroom due to PVR just below 300 ml last night. Declines the need to use the bathroom. verbalizes she took herself through the night but unsure of the time. Instructed on importance of calling for staff for assist w/ transfers and ambulation. 500 ml straw colored urine emptied from hat. Second PVR not obtained. Will report to oncoming nurse.
[2022-03-04 07:10] LABS: Bedside Glucose 206 mg/dL (74-106)
[2022-03-04] MEDS: buPROPion (XL) 150 MG TABLET.XL PO (07:33)
[2022-03-04 07:34] VITALS: PULSE 66
[2022-03-04] MEDS: Senna/Docusate Sodium 1 Tablet 2 TABLET PO (07:34)
[2022-03-04] MEDS: Pantoprazole Sodium 40 MG Tablet PO (07:34)
[2022-03-04] MEDS: metFORMIN HCl 1,000 MG Tablet 1000 MG PO ×2 (07:34→16:46)
[2022-03-04] MEDS: Cholecalciferol (Vit D3) 125 MCG CAPSULE (5,000 UNITS) PO (07:34)
[2022-03-04] MEDS: Metoprolol Tartrate 25 MG Tablet PO ×2 (07:34→20:20)
[2022-03-04] MEDS: Aspirin E.C. 81 MG Tablet PO (07:34)
[2022-03-04] MEDS: Clopidogrel Bisulfate 75 MG Tablet PO (07:35)
[2022-03-04 08:00] VITALS: BP 121/49; PULSE 67; RESP 16; TEMP 36.5; O2SAT 96
[2022-03-04] MEDS: 0.9% Saline Lock 10 ML Syringe IV ×4 (09:00→23:23)
[2022-03-04] MEDS: Vancomycin IV 1,000 MG/200 ML BAG 200 MG IV ×2 (11:30→22:20)
[2022-03-04 12:30] LABS: Bedside Glucose 232 mg/dL (74-106)
--- NOTE | 2022-03-04 14:14 | REHABEVAL_ITS ---
Admission Information Primary Diagnosis:: Debility due to BL prosthetic knee infections with BL explant, BL total synovectomies, implant of polyethylene spacers. Status Changes from Prescreening?: No changes Identified Actual Problem List:: Infection, Skin Intergrity, Pain, ALteration in Cmfrt, Dep ression, Alteration in Sleep, Mobility Impaired, Self Care Deficit, Diabetes, Hyperglycemia and Alteration-Leisure Activ. Potential Problem List:: DVT, Bleeding, Infection, UTI, Aspiration, Falls, Skin Integrity and Depression Risk of Complications DVT: ANASTASIA Hose and - (Xarelto 10 mg daily) Bleeding: Monitor Lab Values, Nursing to Teach Precautions for anti-coagulation therapy., Wound, if applicable, to be assessed every shift. and Stroke patients assessed for lethargy or change in status. Infection: Clinical Staff to Monitor for S/S of infection: and S/S of infection include fever, redness, warmth, etc. Urinary Tract Infection: Monitor for frequency, burning, discomfort, or incontinence. and Nursing will obtain urine sample for urinalysis and C&S when ordered. Aspiration: Clinical staff will monitor for coughing, drooling, congestion., Speech will evaluate swallowing and dsyphasia. and Nursing will monitor patient swallowing during meals. Falls: Patient will be evaluated for Fall Precautions and Patient will be placed on Fall Precautions as indicated per protocol. Skin Breakdown: Nursing will assess skin daily using assessment tool. and Nursing will place on Skin Breakdown Precautions as indicated. Pain: Clinical staff will assess patient's pain level per protocol., Medications will be given, if needed, and the pain level reassessed. and Other methods: Massage, distraction, decrease stimulus, etc. used PRN. Plan of Care Patient requires physician specializing in physical medicine and rehab oversight to provide close medical supervision of rehab issues including: Pain Management, Sleep Problems, Bowel and Bladder, Medical and co-morbidity Management, DVT prophylaxis, Rehabilitation Leadership and Coordination of treatment team Patient needs Physical Therapy: For a minimum of 1 hour and At least 5 out of 7 days Patient needs Physical Therapy to improve:: Mobility, Strengthening, Transfers, Stretching, ROM, Endurance, Stairs, Gait and Balance Patient needs Occupational Therapy: For a minimum of 1 hour and At least 5 out of 7 days Patient needs Occupational Therapy to improve ADL's incl.: Eating, Grooming, Bathing, Dressing, Toileting, Toilet transfers, Community Reintegration, Higher functioning activities, Household tasks, Adaptive Equipment, Splinting and Other activities as determined Patient requires 24/7 Rehabilitation Nursing for: Pain Issues, Identifying and preventing risk factors, Monitoring and reporting current medical conditions, Assisting with ambulation, transfer, and all ADL's, Teaching patients about disease process and medications, Family teaching, Providing safe environment, Bowel and Bladder Issues, Skin integrity and Medication Management Patient needs Blanking Machine Operator/ Case Management for: Discharge Planning, Arranging Home Equipment or Services and Family Interventions Patient needs Dietary and Nutrition Services for: Adequate Nutrition, Nutritional Supplements and Nutritional Education Goals Patient will remain: free from falls and or injury at time of discharge. Patient will perform bed mobility at: MOD I level of assist. Patient will complete transfers from bed to chair at: MOD I level of assist. Patient will ambulate: 100 feet, with LRD and - (150 feet) Patient will complete upper body dressing at: MOD I level of assist. Patient will complete lower body dressing at: MOD I level of assist. Patient will complete toileting at: MOD I level of assist. Patient will perform bathing at: MOD I level of assist. Patient will complete grooming at: MOD I level of assist. Patient will complete home management skills at: MOD I level of assist. Patient will achieve: - (1 curb step and 5 steps) Patient will have pain level of: of 3 or less Patient's skin will: remain intact Patient will receive: adequate nutrition. Discharge Planning Pt Prognosis for Sig. Practical Improv. w/in Reasonable Time: Good Estimated Length of stay (days): 14 Anticipated D/C Destination: Home with Home Health Was Preadmission Assessment Accurate?: Yes
--- NOTE | 2022-03-04 16:35 | NURSING ---
Pt refused Blood sugar check prior to dinner. Also declining Glucerna
[2022-03-04 20:10] VITALS: BP 137/60; PULSE 68; RESP 16; TEMP 36.2; O2SAT 98
[2022-03-04 20:20] VITALS: BP 137/60; PULSE 68
[2022-03-04] MEDS: Pravastatin 80 MG Tablet PO (20:21)
[2022-03-04] MEDS: Zolpidem Tartrate 5 MG Tablet 10 MG PO (22:13)
[2022-03-04 22:33] LABS: Vancomycin, Trough Level 13.8 ug/mL (5.0-15.0)
--- NOTE | 2022-03-04 23:11 | PCM.RX.CS ---
Consult Pharmacy has been consulted to manage selected antiobiotic: Vancomycin Type of Consult: Follow-up Labs: Vancomycin Trough 13.8 ug/mL (5.0-15.0) 03/04/22 21:45 Goal Trough: 15-20 mcg/mL Pharmacy Plan for Drug Dosing: Pharmacy Service will continue to monitor and adjust dosing as required. TROUGH 13.8 AT 10.5 HOURS. PREVIOUS DOSE HUNG 1 HOUR LATE. DUE TO CLOSENESS TO GOAL, KEEP DOSE TH E SAME AND REDRAW TROUGH IN 24 HOURS. Follow-Up Labs: Trough Vancomycin Labs to be done on [date and time ordered]: 03/05 @ 2205
[2022-03-05] MEDS: oxyCODONE 5 MG Tablet PO ×5 (00:23→20:35)
--- NOTE | 2022-03-05 04:17 | NURSING ---
REVIEWED AND AGREE WITH [employer] G[employer] RECRUITER'S FUNCTIONAL ASSESSMENT AND HANDOFF CHARTING.
[2022-03-05] MEDS: Rivaroxaban 10 MG Tablet PO (05:28)
[2022-03-05] MEDS: Acetaminophen 500 MG Tablet 1000 MG PO ×3 (05:28→20:35)
[2022-03-05 07:22] VITALS: BP 140/55; PULSE 67; RESP 20; TEMP 36.7; O2SAT 96
[2022-03-05 09:04] VITALS: BP 140/55; PULSE 67
[2022-03-05] MEDS: Pantoprazole Sodium 40 MG Tablet PO (09:04)
[2022-03-05] MEDS: Cholecalciferol (Vit D3) 125 MCG CAPSULE (5,000 UNITS) PO (09:04)
[2022-03-05] MEDS: Metoprolol Tartrate 25 MG Tablet PO ×2 (09:04→20:36)
[2022-03-05] MEDS: Clopidogrel Bisulfate 75 MG Tablet PO (09:04)
[2022-03-05] MEDS: Aspirin E.C. 81 MG Tablet PO (09:04)
[2022-03-05] MEDS: metFORMIN HCl 1,000 MG Tablet 1000 MG PO ×2 (09:04→17:11)
[2022-03-05] MEDS: buPROPion (XL) 150 MG TABLET.XL PO (09:05)
[2022-03-05] MEDS: Vancomycin IV 1,000 MG/200 ML BAG 200 MG IV ×2 (10:08→22:52)
[2022-03-05] MEDS: 0.9% Saline Lock 10 ML Syringe IV ×2 (10:09→20:37)
--- NOTE | 2022-03-05 10:46 | CASEMGMT ---
Social Work Per chart review and voicemail received by nurse, pt wanting to DC home soon. Pt is on IV ATB. Proactively sent information to [facility] for pricing at home. Met with patient to complete initial assessment. Introduced self and role. Pt confirmed full code. Pt requesting to DC home today. Discussed pt's IV ATB Q12 and Q24 that DC 04/11 and pt was seen today by therapy. Explained pt's do not receive services the day of DC, thus earliest DC would be 03/06. Pt expressed understanding. Inquired if pt or could administer IVs at home. Pt stated could administer though she doesn't feel she needs them and would not take them at home. works full-time still. Educated to taking ATB at home to follow Drs orders. Pt explained she felt this whole process was unnecessary. Explored pt's explanation further and goals admitting to RU. Pt stated she only wanted to stay a few days. Inquired about getting therapy or DME at home. Pt declined, not wanting to do further therapy. Reviewed contact list with pt. 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 Explained SW to discuss wishes with Dr and f/u. Pt expressed understanding. SW to continue to follow. Lisa Landers, ILYA HUNTW
--- NOTE | 2022-03-05 11:15 | NURSING ---
pt refusing to have blood sugar check done, also refusing SCD's and polar care. Dr Veliz made aware
--- NOTE | 2022-03-05 11:48 | PCM.PROGNOTE ---
Subjective Subjective Afebrile VSS Maintaining appropriate oxygen saturation on RA Oral intake is adequate Discussed with nursing - has been refusing to have her BS taken since yesterday at noon. They were not adequately controlled prior to that and ranged from 191-278. Reviewed the PT/OT notes Medication list reviewed. Caty wants to go home and she wants the PICC line discontinued because she will not take IV antibiotics at home. We discussed this yesterday and we had another discussion today. She wants proof she has an infection. I explained that the WBC's in the arthrocentesis fluid were very high and because she was taking antibiotics at the time the arthrocentesis was done the cultures may not grow anything. If in fact she has an infection that was partially treated by the Augmentin and it goes untreated that infection may start to destroy the bones and possibly spread to other sites, like the heart valves, brain, spine, etc. there is also a risk of and she understands this and continues to say she needs proof. She is prepared to leave AMA if need be. She denies CP, SOB, palpitations, N/V/abd pain, diarrhea, mouth pain, pain with swallowing, vaginal itching or DC and cephalgia. Objective Data Objective Data Vital Signs: Vital Signs Temp Pulse Resp BP Pulse Ox 98.0 F 67 20 H 140/55 H 96 03/05/22 07:22 03/05/22 09:04 03/05/22 07:22 03/05/22 09:04 03/05/22 07:22 Oxygen Delivery Method Room Air Weight: 189 lb 13.088 oz Intake & Output: Intake and Output for Last 24 Hours 03/03/22 03/04/22 03/05/22 23:59 23:59 23:59 Intake Total 1770 / 1770 890 / 890 200 / 200 Output Total 500 / 500 900 / 900 Balance 1270 / 1270 -10 / -10 200 / 200 Lab / Micro Data Labs: Laboratory Results - last 24 hr 03/04/22 12:21: POC Glucose 232 H 03/04/22 21:45: Vancomycin Trough 13.8 Physical Exam Const alert, oriented x3 and no apparent distress Constitutional Narrative: She is somewhat pale HEENT moist oral mucous membranes and oropharynx normal Eyes no scleral icterus Resp normal respiratory effort, normal air movement and clear to auscultation bilaterally Effort and Inspection: able to speak in complete sentences Cardio regular rate and regular rhythm Cardio Narrative: She has a systolic MM at the second RICS with radiation to the LVOT, LLSB and the apex. In October of this year Dr. Davila documented no MM at the office visit. She had a TTE in the hospital and there was no vegetation observed. GI normal to inspection, nondistended, normoactive bowel sounds, soft to palpation and non-tender Extremity no calf tenderness Extremity Narrative: edema of both knees L>R. No erythema outside the dressing and no dried DC on the dressing. Psych Psych Narrative: Flat affect. 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: (4) Aftercare following explantation of joint prosthesis, staged procedure: (5) Cardiac murmur: (6) Normocytic normochromic anemia: (7) Presence of stent in coronary artery: (8) Diabetes: QUALIFIERS: Diabetes mellitus type: type 2 Diabetes mellitus complication status: without complication Diabetes mellitus exterminator helper insulin use: without mcfp use Qualified Code(s): E11.9 - Type 2 diabetes mellitus without complications; E11.9 - Type 2 diabetes mellitus without complications; E11.9 - Type 2 diabetes mellitus without complications; E11.9 - Type 2 diabetes mellitus without complications PLAN: 1. D/W Dr. Webb and he will be up this afternoon to talk with Caty. If she will not take IV antibiotics then she would be prescribed Doxycycline 100 mg BID X 1 year and Keflex 500 mg TID for 2 months. She will need close and will have her follow with Dr. Webb in the [facility]. She will also need to follow up with Dr. Vernon and Dr. Tejada. I will have her sign out AMA but, will give RX's if she decides to leave. 2. Add glimepiride 1 mg to current drug regimen. She has been on this medication in the past when her BS's were high and tells me that it worked well. 3. Will D/W Dr. Webb when he wants to see her and what regularly scheduled lab he would like. Charges/Coding Visit Charges Inpatient E&M: 25496 Subs Hosp L2
--- NOTE | 2022-03-05 13:12 | PCM.PN.ID ---
Physical Exam Narrative Feeling frustrated. Knees sore but improving. No fever, no n/v/d. Const alert and no apparent distress General Appearance: cooperative Resp normal air movement and clear to auscultation bilaterally Cardio regular rate and regular rhythm GI soft to palpation, non-tender and non-distended Skin no rashes or lesions noted ID ID: Route of nutrition/ use of supplements: [] Nutritional Intake: [] IV Site: [] Rivas Catheter: [] Assessment & Plan Assessment/Plan (1) Infected prosthetic knee joint: QUALIFIERS: Encounter type: subsequent encounter Qualified Code(s): T84.59XD - Infection and inflammatory reaction due to other internal joint prosthesis, subsequent encounter; Z96.659 - Presence of unspecified artificial knee joint PLAN: Now s/p bilateral knee I&D, synovectomy, and poly exchange 02/28/[address] Vernon. Aspiration cx and surg cx neg so far. Abx were held prior to surgery. Will treat with iv vanc/ceftriaxone for 6 weeks iv abx with stop date 04/11/22 then senior living po. Requested micro lab hold cxs for 14 days. Encouraged her to continue iv abx but she is unconvinced. If she leaves and refuses further iv abx, would do po doxy 100mg bid for one year, keflex 500mg tid for 2 months. Will follow
--- NOTE | 2022-03-05 13:53 | CASEMGMT ---
Social Work Spoke with Dr. Veliz to update on pt wanting to DC tomorrow without IV ATB or therapy. to speak with ID and pt. Followed up with Dr. Veliz. ID . agreeable to change to PO ATB for pt to take for a year. If pt is agreeable, will sign DC otherwise pt will have to leave AMA. Followed up with pt. Pt spoke with Dr. Veliz and ID and agreeable to DC home tomorrow with PO ATB and be compliant. Pt still denies therapy or DME needs. Updated IDT and CSI to cancel referral. Plan: DC home with 03/06, no needs Lisa Landers, SCIENTIST/ENGINEER SENIOR SOFTWARE DEVELOPMENT ENGINEER
[2022-03-05 19:38] VITALS: BP 149/69; PULSE 62; RESP 16; TEMP 35.6; O2SAT 98
[2022-03-05 20:36] VITALS: PULSE 62
[2022-03-05] MEDS: Pravastatin 80 MG Tablet PO (20:36)
[2022-03-05] MEDS: Zolpidem Tartrate 5 MG Tablet 10 MG PO (20:37)
[2022-03-05 22:00] VITALS: RESP 16; O2SAT 96
[2022-03-05 22:55] LABS: Vancomycin, Trough Level 14.3 ug/mL (5.0-15.0)
--- NOTE | 2022-03-05 23:36 | PCM.RX.CS ---
Consult Pharmacy has been consulted to manage selected antiobiotic: Vancomycin Type of Consult: Follow-up Suspected Infection: Skin/Soft tissue Labs: Vancomycin Trough 14.3 ug/mL (5.0-15.0) 03/05/22 22:00 Goal Trough: 15-20 mcg/mL Pharmacy Plan for Drug Dosing: VANCOMYCIN LEVEL RECEIVED Current Vancomycin Dose: 1g IV Q12h Number of Doses Received: 7 Vancomycin Level: 14.3 Hours Since Last Dose: 12hr Renal Function: nnl Renal Function Trend: nnl Lab/Micro: no new Vancomycin Plan/Comments: Patient has been on 1g IV Q12hr and had a trough drawn which resulted in a value of 14.3 (Goal 15-20). The patient is close to trough goal at this time. Will continue current dose and check a trough in 2 days. Note: Stop date for antibiotic is 04/11/22. Pending Level: 03/07/22 @1000 Pharmacy Service will continue to monitor and adjust dosing as required.
[2022-03-06] MEDS: Acetaminophen 500 MG Tablet 1000 MG PO (05:09)
[2022-03-06] MEDS: Rivaroxaban 10 MG Tablet PO (05:09)
[2022-03-06] MEDS: oxyCODONE 5 MG Tablet PO ×2 (05:10→10:06)
[2022-03-06 07:39] VITALS: BP 158/68; PULSE 68; RESP 18; TEMP 36.7; O2SAT 96
[2022-03-06 07:56] VITALS: BP 158/68; PULSE 68
[2022-03-06] MEDS: Clopidogrel Bisulfate 75 MG Tablet PO (07:56)
[2022-03-06] MEDS: Pantoprazole Sodium 40 MG Tablet PO (07:56)
[2022-03-06] MEDS: Glimepiride 1 MG Tablet PO (07:56)
[2022-03-06] MEDS: Aspirin E.C. 81 MG Tablet PO (07:56)
[2022-03-06] MEDS: Metoprolol Tartrate 25 MG Tablet PO (07:56)
[2022-03-06] MEDS: Cholecalciferol (Vit D3) 125 MCG CAPSULE (5,000 UNITS) PO (07:56)
[2022-03-06] MEDS: metFORMIN HCl 1,000 MG Tablet 1000 MG PO (07:56)
[2022-03-06] MEDS: buPROPion (XL) 150 MG TABLET.XL PO (07:57)
[2022-03-06] MEDS: 0.9% Saline Lock 10 ML Syringe IV ×2 (10:01→10:49)
[2022-03-06] MEDS: Vancomycin IV 1,000 MG/200 ML BAG 200 MG IV (10:46)
--- NOTE | 2022-03-06 11:01 | PCM.DC ---
Discharge Instructions Diet Discharge Diet: - (1800-calorie, carbohydrate controlled, low fat and low salt) Activity Discharge Activity: May Not Drive (Until released to drive by Dr. Vernon. Do not drive while taking narcotics for pain control. ), May Shower and Use Walker (Can use cane in the house and walker for community/longer distances. ) Weight Bearing Status: Full weight bearing Keep extremity elevated above heart level: Legs Additional Activity Instructions:: To help control swelling. Dressing / Incision Call your doctor if your incision/area has: Continuous Slow Oozing, Sudden Increased Bleeding, Increased Pain/ Swelling, Increased Redness and Foul Smelling Discharge Call your doctor if you observe: Fever of 101 or Higher, Shortness of breath, Chest pain, Calf discomfort and Uncontrolled pain Suture Line Care: Avoid Pulling/Pushing and Avoid Pinching/Bending Change Dressing in: 1 day (You do not have to have a dressing over the incisions BUT, you can cover the incisions with a light dry dressing to avoid irritation from you pants. ) Cleanse incision/area with: Soap & Water and Keep Dressing Clean & Dry Additional Dressing/Incision Instructions:: The jasen will come out in 2 weeks and this will be done at Dr. Vernon's office. Follow Up Care Please Follow Up With: Angelique Tejada MD When: 7-10 days. Also follow up with Dr. Webb and Dr. Vernon. Test Results: Test results from this visit will be discussed in further detail at your follow-up appointment, if applicable. Pending Tests Upon Discharge: Final cultures. Discharge Plan Admission Admit Date/Time: 03/02/22 15:58 Primary Reason for Your Visit: Debility due to BL infected prosthetic knees with explantation Attending Provider: Caty Veliz Primary Care Provider: Angelique Tejada Consulting Providers: Wali Webb Patient Instructions: Taking Antibiotics: Tetracyclines, Caring for Your Incision, What Is C. Diff? Additional Instructions / Restrictions: 1. Because you were taking Augmentin for a sinus infection prior to the fluid being withdraw from the knees the cultures may remain negative. The antibiotic was contained in the fluid in the knees and it can suppress the growth of bacteria on the plates in microbiology. The cultures will be kept a full 14 days in microbiology.......some bacteria are slow growing. If the cultures turn + you will be contacted. 2. Prosthetic joint infections are generally treated with 6 weeks of IV antibiotics followed by oral antibiotics. Since you have refused to take IV antibiotics you are being discharged on 2 different oral antibiotics, Keflex 500 mg 3X a day for 2 months and Doxycycline 100 mg twice a day for 1 full year. IV antibiotics get better distribution in the body and are the best way to treat these infections. You will still be at risk for spread of infection. TAke you temperature at least once a day at home and if it is > 100.[address] Webb or Dr. Vernon or Dr. Tejada for instructions. You will also need to notify at least 1 of these doctors if you have increased swelling of the knees/ankles, if you have increasing redness of the knees, if there is discharge from the incisions or if the pain increases. If bacteria gets in the blood it can spread to the brain, spine, heart valves and many other places. You can from an overwhelming infection so if you have any sign of increasing infection CALL SOMEONE. 3. Antibiotics can cause thrush, vaginal discharge and itching and painful swallowing. If you have any of these symptoms call Dr. Tejada. Antibiotics can also cause severe diarrhea, abdominal pain, nausea/vomiting and wt loss due to overgrowth of a bacteria called C.DIFF in the colon. If you develop these symptoms do NOT stop the antibiotics. Call Dr. Tejada for instructions on what to do. It is normal to get some loose stool with antibiotics but, > 3 daily is unusual. If you have loose stool you can start a probiotic and this may help. 4. I have given you a prescription for glimepiride. You will be on the lowest dose which is 1 mg a day and you should take it in the AM. Your diabetes is not well controlled. Your hemoglobin A1c is 7.7 and with your history of coronary disease and now an infection it needs to be less than 7. When the blood sugars are high the infections are more difficult to control. 5. If you have any questions after you leave the rehab unit please call me at [phone] or [phone]. Discharge Orders/Prescriptions Prescriptions: New glimepiride 1 mg Tablet 1 mg PO BREAKFAST Qty: 30 RF: 0 cephalexin 500 mg capsule 500 mg PO TID Qty: 90 RF: 1 doxycycline monohydrate 100 mg capsule 100 mg PO BID Qty: 60 RF: 11 Continued bupropion HCl 150 mg tablet extended release 24 hr 150 mg PO QAM RF: 0 nitroglycerin 0.4 mg tablet, sublingual 0.4 mg SUBLINGUAL Q5M PRN (Reason: Chest Pain) Qty: 25 RF: 3 cholecalciferol (vitamin D3) 125 mcg (5,000 unit) tablet 5,000 unit PO DAILY RF: 0 metformin 1,000 MG tablet 1,000 mg PO BID RF: 0 albuterol sulfate 1 PUFF inhaler 1 puff INHALATION Q6H PRN PRN (Reason: Asthma) RF: 0 clopidogrel 75 mg tablet 75 mg PO DAILY RF: 0 aspirin 81 mg tablet,delayed release (DR/EC) 81 mg PO DAILY RF: 0 pravastatin 80 mg tablet 80 mg PO QHS RF: 0 pantoprazole 40 MG tablet,delayed release (DR/EC) 40 mg PO DAILY RF: 0 metoprolol tartrate 25 mg tablet 25 mg PO BID RF: 0 oxycodone 5 mg Tablet 5 mg PO Q4H PRN PRN (Reason: Pain Score 6-10) 7 Days Qty: 42 RF: 0 Changed acetaminophen 500 mg tablet 1,000 mg PO Q8 PRN (Reason: pain) Qty: 0 RF: 0 rivaroxaban 10 mg tablet 10 mg PO DAILY Qty: 22 RF: 0 Discontinued zolpidem 10 mg tablet 10 mg PO QHS RF: 0 sennosides-docusate sodium [Stool Softener-Stimulant Laxat] 8.6-50 mg tablet 2 tab PO BID RF: 0 vancomycin in 0.9 % sodium chl 1 gram/200 mL piggyback 1 g IV Q12H RF: 0 No Action ceftriaxone 2 gram recon soln 2 g IV DAILY RF: 0 Ensure Surgery 0.08-1.4 gram-kcal/mL liquid 237 ml PO TIDCM RF: 0 Referrals / Follow Up: Wali Webb [Other] - 04/04/22 2:30 pm ([facility]) Angelique Tejada MD [Primary Care Provider] - (call and schedule a F/U appt 2-3 weeks) Gilberto Vernon MD [STAFF PHYSICIAN] - Disposition Disposition (needs filled in before D/C Order can be placed): Home, Self Care
--- NOTE | 2022-03-06 12:08 | DS.PCM_ITS ---
Providers Date of Admission: 03/02/22 Date of Discharge: 03/06/22 Primary Care Physician: Dr. Angelique Tejada MD Consultations 03/02/22 16:39 Consult: Infectious Disease Routine Consulting Provider: Wali Webb Reason for Consult: B/L knee periprosthetic joint infections EMERGENT Consult: No MD Notified: Yes Date Notified: 03/02/22 Time Notified: 16:39 Method of Notification: Answering Service Reason For Visit: Debility due to BL prosthetic knee INFX Diagnosis Discharge Diagnosis (1) Debility: Status: Acute Code(s): R53.81 - Other malaise (2) Infected prosthetic knee joint: Status: Acute Code(s): T84.59XA - Infection and inflammatory reaction due to other internal joint prosthesis, initial encounter; Z96.659 - Presence of unspecified artificial knee joint Qualifiers: Encounter type: subsequent encounter Qualified Code(s): T84.59XD - Infection and inflammatory reaction due to other internal joint prosthesis, subsequent encounter; Z96.659 - Presence of unspecified artificial knee joint (3) 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: Status: Acute Code(s): Z89.529 - Acquired absence of unspecified knee (4) Aftercare following explantation of joint prosthesis, staged procedure: Status: Acute Code(s): Z47.89 - Encounter for other orthopedic aftercare (5) Normocytic normochromic anemia: Status: Acute Code(s): D64.9 - Anemia, unspecified (6) Cardiac murmur: Status: Chronic Code(s): R01.1 - Cardiac murmur, unspecified (7) Cigarette nicotine dependence: Status: Chronic Code(s): F17.210 - Nicotine dependence, cigarettes, uncomplicated Qualifiers: Substance use status: uncomplicated Qualified Code(s): F17.210 - Nicotine dependence, cigarettes, uncomplicated (8) Diabetes: Status: Chronic Code(s): E11.9 - Type 2 diabetes mellitus without complications Qualifiers: Diabetes mellitus complication status: without complication 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: without [facility] use Diabetes mellitus type: type 2 Qualified Code(s): E11.9 - Type 2 diabetes mellitus without complications; E11.9 - Type 2 diabetes mellitus without complications; E11.9 - Type 2 diabetes mellitus without complications; E11.9 - Type 2 diabetes mellitus without complications (9) Atherosclerosis of [place] coronary artery of [place] heart without angina pectoris: Status: Chronic Code(s): I25.10 - Atherosclerotic heart disease of [place] coronary artery without angina pectoris (10) Bruit of left carotid artery: Status: Acute Code(s): R09.89 - Other specified symptoms and signs involving the circulatory and respiratory systems (11) Presence of stent in coronary artery: Status: Acute Code(s): Z95.5 - Presence of coronary angioplasty implant and graft (12) Asthma: Status: Acute Code(s): J45.909 - Unspecified asthma, uncomplicated Qualifiers: Asthma complication type: uncomplicated Asthma persistence: intermitte nt Asthma severity: unspecified severity Qualified Code(s): J45.20 - Mild intermittent asthma, uncomplicated (13) Osteoarthritis: Status: Acute Code(s): M19.90 - Unspecified osteoarthritis, unspecified site Qualifiers: Osteoarthritis location: multiple joints Osteoarthritis type: primary Qualified Code(s): M15.9 - Polyosteoarthritis, unspecified (14) GERD (gastroesophageal reflux disease): Status: Acute Code(s): K21.9 - Gastro-esophageal reflux disease without esophagitis Qualifiers: Esophagitis presence: without esophagitis Qualified Code(s): K21.9 - Gastro-esophageal reflux disease without esophagitis (15) Depression: Status: Acute Code(s): F32.9 - Major depressive disorder, single episode, unspecified Qualifiers: Depression Type: unspecified Qualified Code(s): F32.A - Depression, unspecified (16) Sleep apnea: Status: Acute Code(s): G47.30 - Sleep apnea, unspecified Qualifiers: Sleep apnea type: unspecified type Qualified Code(s): G47.30 - Sleep apnea, unspecified (17) Essential hypertension: Status: Chronic Code(s): I10 - Essential (primary) hypertension Plan: 1. DC home for self care. Refused therapy and HHC. Refused IV antibiotics. No DME needs. 2. Doxycycline 100 mg BID for 1 year and Keflex 500 mg TID for 2 months. 3. Follow up with Dr. Webb, Dr. Tejada and Dr. Vernon 4. Staple removal in 2 weeks at [facility]. 5. Pt is to call any of the 3 physicians she is following up with if Fever.100.6, increased swelling of the knees or distal legs, increasing redness of the knees or legs, increased discharge from the incisions, increasing pain, any foul smelling discharge from the wound. 6. Xarelto 10 mg once a day for 22 days to complete DVT prophylaxis for 28 days following explantation/debridement. Medications at Discharge Home Medications albuterol sulfate 1 puff INHALATION Q6H PRN PRN 12/16/14 metformin 1,000 mg PO BID 12/16/14 bupropion HCl 150 mg 24 hr tablet, extended release 150 mg PO QAM 11/30/19 nitroglycerin 0.4 mg sublingual tablet 0.4 mg SUBLINGUAL Q5M PRN #25 tab 11/30/19 cholecalciferol (vitamin D3) 125 mcg (5,000 unit) tablet 5,000 unit PO DAILY tab 03/10/21 aspirin 81 mg PO DAILY 03/02/22 ceftriaxone 2 g IV DAILY 03/02/22 clopidogrel 75 mg PO DAILY 03/02/22 metoprolol tartrate 25 mg PO BID 03/02/22 nut.tx.comp. immune systm,reg [Ensure Surgery] 237 ml PO TIDCM 03/02/22 pantoprazole 40 mg PO DAILY 03/02/22 pravastatin 80 mg PO QHS 03/02/22 acetaminophen 1,000 mg PO Q8 PRN #0 tab 03/06/22 cephalexin 500 mg PO TID #90 cap 03/06/22 doxycycline monohydrate 100 mg PO BID #60 cap 03/06/22 glimepiride 1 mg PO BREAKFAST #30 tab 03/06/22 oxycodone 5 mg PO Q4H PRN PRN 7 Days #42 tab 03/06/22 rivaroxaban 10 mg PO DAILY #22 tab 03/06/22 Hospital Course Operations - (BL knee synovectomy/debridement, explantation of joint prostheses and placement of polyethylene joint spacers on 02/28/[address] Vernon. ) Procedures - (PICC placement and removal) Summary of Care Provided Minutes Spent on Discharge: 40 Hospital Course: MICKI PACK, is a 61 YO F with a PMH of asthma, CAD, tobacco dependence, Depression, HLD, DM II (diagnosed in 2009 or 2010), hx of PTCA (03/04/19), diverticulosis, KALI (not receiving tx), COVID one month prior to ER presentation and OA who presented to the ED at [facility] on 02/27/22 stating that when she awoke that morning she had marked swelling of both knees. She had been on Augmentin for a sinus infection for a few days. The sx included green nasal DC, PND, RYAN, pain in her teeth. She was unable to ambulate due to severe pain. HX is positive for BL TKR's. Temp in the ER was 100F and she was tachycardic. PE was unremarkable with the exception of BL knee effusions with marked pain with even Light touch. There was no erythema of either knee. Significant lab included an elevated WBC count at 14.8 (but 4 hours later the WBC count was 9.7 and the following day it was 8). HGB was initially 12 but, it has been low since she was hydrated. The sed rate was 33 in the ED and the CRP was 190. Sodium was low at 135 and the K was low at 3.2. The BUN was 17 with a creat of 0.63. HGBA1C was less than ideal at 7.7. UA was elevated at 7.6. A arthrocentesis was done and the WBC count was high in both knees. There were no crystals and no bacteria seen. COVID and FLU rapid tests were + but the PCR's for COVID and Flu were negative. Plain XRAYS of the R and L knee had no acute findings. She was admitted to the hospitalist service and Dr. Vernon was consulted. His impression was BL periprosthetic bacterial infections and he recommended surgery. She went to surgery on 02/28/22 and had BL synovectomy, irrigation/debridement and polyethylene exchange of both knees. Post operatively on the ID was consulted and she was seen by Dr. Webb who recommended Rocephin and Vancomycin empirically. All cultures have been negative to date. A PICC line was inserted and the plan is for 6 weeks of IV antibiotics then LT PO antibiotics. She was transferred to the inpt acute rehab unit at [facility] on 03/02/22 for 3 H of therapy daily to restore mobility. While on rehab she could not understand why she needed to be in rehab. She had gone home after her knee replacements without needing rehab. I explained that we needed time to get the IV antibiotics arranged and teach her how to do the flushes. She told me that she wanted the PICC out and she would not take IV antibiotics because we had no proof she had an infection since the cultures are all negative to date. I also explained that since she was taking antibiotics at the time she had the arthrocentesis that this may be suppressing any bacterial growth. Dr. Webb talked to her and she continued to refuse IV antibiotics. She agreed to take oral antibiotics for a year. She will be taking Keflex 500 mg TID for 2 months and Doxycycline 100 mg BID for 12 months. Prior to discharge she was able to get in and out of bed at [facility]. she had ambulated up to 105' with a FWW. She said that she would not be using a WW at home and she was able to ambulate 60 ft without the walker at light CGA. She was able to dress her UB and LB independently and she could transfer to the toilet and complete toileting with supervision only. The last HGB was 9.5 and I suspect this is likely due to blood loss at the time of surgery. WBC was normal. Creatinine was stable at 0.68. HGBA1C during hr hospitalization was high at 7.7. She checks her sugar only once a day, fasting, at home. She refused any further accuchecks from noon on 03/04/22 until DC but the BS's were high. She told me that in the past when her sugars were high she did well with the addition of glimepiride to her drug regimen. She was started on 1 mg of glimepiride every morning. Micki was discharged on 03/06/22 and will follow up with Dr. Vernon in 2 weeks to have the jasen removed, Dr. Tejada within 5-10 days post DC and Dr. Tilley in 4-6 weeks. She was given a RX for Xarelto 10 mg daily for DVT prophylaxis to finish 28 days of DVT prophylaxis post op. She was advised to consider taking a probiotic if she has loose stools. She was instructed to call one of her physicians if she has a temp > 100.6, if there is increased swelling of the knees and lower legs, if she has shaking chills, if the pain increases, if there is purulent or foul smelling DC from the incisions or if erythema develops. She was instructed not to drive until she was cleared to do so by Dr. Vernon. Smoking cessation counselling was given in rehab. She declined a nicotine patch and does not want to quit smoking because she likes to smoke. While in the hospital she had an ECHO and there were no valvular vegetations. The EF was WNL with no WMA. She has a follow up appt with Dr. Davila in March. She has a 2/6 MARIELLA heard at the second RICS and there is radiation to the LLSB, apex and LVOT. There is also radiation into the sternal notch and R carotid. Physical Exam Const alert, oriented x3 and no apparent distress General Appearance: cooperative HEENT moist oral mucous membranes and oropharynx normal Eyes PERRL, EOMs intact bilaterally, conjunctivae normal and no scleral icterus Resp normal respiratory effort, normal air movement and clear to auscultation bilaterally Effort and Inspection: able to speak in complete sentences Cardio regular rate, regular rhythm, S1 normal heart sound, S2 normal heart sound, no rub and no gallops Cardio Narrative: She has a 2/6 systolic ejection murmur heard at the second right intercostal space with radiation to the sternal notch, right carotid, left ventricular outflow tract, lower left sternal border and apex. There was no radiation into the left axilla. GI normal to inspection, nondistended, normoactive bowel sounds, soft to palpation and non-tender GI Narrative: No guarding with palpation Extremity no calf tenderness Extremity Narrative: Swelling in the knees has decreased considerably since admission to rehab. The silver impregnated dressings were removed prior to discharge on 03/06/2022. The jasen are intact and there is no dehiscence. There was a very small amount of serosanguineous discharge from the right incision and no discharge from the left incision. There is no erythema and there is no odor to the DC. Skin General Skin Exam: no breakdown Rashes: no rashes Neuro oriented x3, CN's II-XII intact bilaterally, moves all extremities and no focal motor deficits Psych mental status grossly normal, thought process normal, affect normal, denies hallucinations, denies homicidal ideation and denies suicidal ideation Appearance: grossly normal Activity / Motor Behavior: appropriate eye contact Speech: normal speech Weight / BMI Weight Weight: 189 lb 13.088 oz ABG / Lab / Microbiology Data Laboratory: Laboratory Results - last 24 hr 03/05/22 22:00: Vancomycin Trough 14.3 D/C Instructions Discharge Diet: - (1800-calorie, carbohydrate controlled, low fat and low salt) Weight Bearing Status: Full weight bearing Keep extremity elevated above heart level: Legs Additional Activity Instructions: To help control swelling. Call your doctor if your incision/area has: Continuous Slow Oozing, Sudden Increased Bleeding, Increased Pain/ Swelling, Increased Redness and Foul Smelling Discharge Call your doctor if you observe: Fever of 101 or Higher, Shortness of breath, Chest pain, Calf discomfort and Uncontrolled pain Suture Line Care: Avoid Pulling/Pushing and Avoid Pinching/Bending Cleanse incision/area with: Soap & Water and Keep Dressing Clean & Dry Additional Dressing/Incision Instructions: The jasen will come out in 2 weeks and this will be done at Dr. Vernon's office. Pending Tests Upon Discharge: Final cultures. Please Follow Up With: Angelique Tejada MD When: 7-10 days. Also follow up with Dr. Webb and Dr. Vernon. Meaningful Use Info Meaningful Use Diagnoses (Choose all that apply): None applicable Discharge Plan Admission Admit Date/Time: 03/02/22 15:58 Primary Reason for Your Visit: Debility due to BL infected prosthetic knees with explantation Attending Provider: Micki Veliz Primary Care Provider: Angelique Tejada Consulting Providers: Wali Webb Instructions Patient Instructions: Taking Antibiotics: Tetracyclines, Caring for Your Incision, What Is C. Diff? Additional Instructions / Restrictions: 1. Because you were taking Augmentin for a sinus infection prior to the fluid being withdraw from the knees the cultures may remain negative. The antibiotic was contained in the fluid in the knees and it can suppress the growth of bacteria on the plates in microbiology. The cultures will be kept a full 14 days in microbiology.......some bacteria are slow growing. If the cultures turn + you will be contacted. 2. Prosthetic joint infections are generally treated with 6 weeks of IV antibiotics followed by oral antibiotics. Since you have refused to take IV antibiotics you are being discharged on 2 different oral antibiotics, Keflex 500 mg 3X a day for 2 months and Doxycycline 100 mg twice a day for 1 full year. IV antibiotics get better distribution in the body and are the best way to treat these infections. You will still be at risk for spread of infection. TAke you temperature at least once a day at home and if it is > 100.[address] Webb or Dr. Vernon or Dr. Tejada for instructions. You will also need to notify at least 1 of these doctors if you have increased swelling of the knees/ankles, if you have increasing redness of the knees, if there is discharge from the incisions or if the pain increases. If bacteria gets in the blood it can spread to the brain, spine, heart valves and many other places. You can from an overwhelming infection so if you have any sign of increasing infection CALL SOMEONE. 3. Antibiotics can cause thrush, vaginal discharge and itching and painful swallowing. If you have any of these symptoms call Dr. Tejada. Antibiotics can also cause severe diarrhea, abdominal pain, nausea/vomiting and wt loss due to overgrowth of a bacteria called C.DIFF in the colon. If you develop these symptoms do NOT stop the antibiotics. Call Dr. Tejada for instructions on what to do. It is normal to get some loose stool with antibiotics but, > 3 daily is unusual. If you have loose stool you can start a probiotic and this may help. 4. I have given you a prescription for glimepiride. You will be on the lowest dose which is 1 mg a day and you should take it in the AM. Your diabetes is not well controlled. Your hemoglobin A1c is 7.7 and with your history of coronary disease and now an infection it needs to be less than 7. When the blood sugars are high the infections are more difficult to control. 5. If you have any questions after you leave the rehab unit please call me at [phone] or [phone]. Discharge Orders/Prescriptions Prescriptions: New glimepiride 1 mg Tablet 1 mg PO BREAKFAST Qty: 30 RF: 0 cephalexin 500 mg capsule 500 mg PO TID Qty: 90 RF: 1 doxycycline monohydrate 100 mg capsule 100 mg PO BID Qty: 60 RF: 11 Continued bupropion HCl 150 mg tablet extended release 24 hr 150 mg PO QAM RF: 0 nitroglycerin 0.4 mg tablet, sublingual 0.4 mg SUBLINGUAL Q5M PRN (Reason: Chest Pain) Qty: 25 RF: 3 cholecalciferol (vitamin D3) 125 mcg (5,000 unit) tablet 5,000 unit PO DAILY RF: 0 metformin 1,000 MG tablet 1,000 mg PO BID RF: 0 albuterol sulfate 1 PUFF inhaler 1 puff INHALATION Q6H PRN PRN (Reason: Asthma) RF: 0 clopidogrel 75 mg tablet 75 mg PO DAILY RF: 0 aspirin 81 mg tablet,delayed release (DR/EC) 81 mg PO DAILY RF: 0 pravastatin 80 mg tablet 80 mg PO QHS RF: 0 pantoprazole 40 MG tablet,delayed release (DR/EC) 40 mg PO DAILY RF: 0 metoprolol tartrate 25 mg tablet 25 mg PO BID RF: 0 oxycodone 5 mg Tablet 5 mg PO Q4H PRN PRN (Reason: Pain Score 6-10) 7 Days Qty: 42 RF: 0 Changed acetaminophen 500 mg tablet 1,000 mg PO Q8 PRN (Reason: pain) Qty: 0 RF: 0 rivaroxaban 10 mg tablet 10 mg PO DAILY Qty: 22 RF: 0 Discontinued zolpidem 10 mg tablet 10 mg PO QHS RF: 0 sennosides-docusate sodium [Stool Softener-Stimulant Laxat] 8.6-50 mg tablet 2 tab PO BID RF: 0 vancomycin in 0.9 % sodium chl 1 gram/200 mL piggyback 1 g IV Q12H RF: 0 No Action ceftriaxone 2 gram recon soln 2 g IV DAILY RF: 0 Ensure Surgery 0.08-1.4 gram-kcal/mL liquid 237 ml PO TIDCM RF: 0 Referrals / Follow Up: Wali Webb [Other] - 04/04/22 2:30 pm ([facility] [place]) Angelique Tejada MD [Primary Care Provider] - (call and schedule a F/U appt 2-3 weeks) Gilberto Vernon MD [STAFF PHYSICIAN] - 03/14/22 9:15 am () Disposition Disposition (needs filled in before D/C Order can be placed): Home, Self Care Charges/Coding Visit Charges Inpatient E&M: 91557 Disch Hosp
[2022-03-06 13:38] VITALS: BP 158/68; PULSE 68; RESP 16; TEMP 36.6; O2SAT 96
--- NOTE | 2022-03-06 13:40 | NURSING ---
Discharged home with , discharge instructions, medications and appointments reviewed with pt. denies questions or concerns
== END 2022-03-06 13:45 | disposition home or self-care (01) | DRG 464 ==
PROVIDERS: Admitting Provider Internal Medicine; PCP Internal Medicine; Visit Provider Internal Medicine
DX: T84.53XA Infection and inflammatory reaction due to internal right knee prosthesis, initial encounter (principal); D62 Acute posthemorrhagic anemia; J44.9 Chronic obstructive pulmonary disease, unspecified; T84.54XA Infection and inflammatory reaction due to internal left knee prosthesis, initial encounter; T84.84XA Pain due to internal orthopedic prosthetic devices, implants and grafts, initial encounter; E78.2 Mixed hyperlipidemia; F17.210 Nicotine dependence, cigarettes, uncomplicated; I25.10 Atherosclerotic heart disease of native coronary artery without angina pectoris; I10 Essential (primary) hypertension; G47.33 Obstructive sleep apnea (adult) (pediatric); M15.9 Polyosteoarthritis, unspecified; K21.9 Gastro-esophageal reflux disease without esophagitis; F32.A Depression, unspecified; Z79.84 Long term (current) use of oral hypoglycemic drugs; R01.1 Cardiac murmur, unspecified; Z20.822 Contact with and (suspected) exposure to COVID-19; M81.0 Age-related osteoporosis without current pathological fracture; Z79.82 Long term (current) use of aspirin; Z79.899 Other long term (current) drug therapy; Z79.02 Long term (current) use of antithrombotics/antiplatelets; Y83.1 Surgical operation with implant of artificial internal device as the cause of abnormal reaction of the patient, or of later complication, without mention of misadventure at the time of the procedure; Z95.5 Presence of coronary angioplasty implant and graft; R09.02 Hypoxemia
CPT/HCPCS: 36415; 36569; 36600; 71045; 73560; 80048; 80053; 80202; 81001; 82803; 82962; 83036; 83735; 84550; 85025; 85652; 86141; 86850; 86900; 86901; 87015; 87040; 87070; 87075; 87086; 87102; 87116; 87176; 87205; 87206; 87428; 87633; 87635; 89050; 89051; 89060; 93005; 93306; 94002; 94640; 97110; 97116; 97162; 97164; 97165; 97166; 97168; 97530; 97535; 97802; 97803; 99251; 99252; 99285; 99406; C1776; J7030; J7040; J7050; J7120; A4216; G0463; J0696; J2405; U0003; U0005

== ENCOUNTER → 2022-08-20 | Outpatient (CLI) | payer OTHER, SELFPAY ==
[2018-10-10 13:42] VITALS: BMI 32.9
--- NOTE | 2022-08-20 14:01 | CT_ITS ---
STUDY: CT Chest W/O Contrast Injection 08/20/2022 9:37 PM REASON FOR EXAM: Female, 62 years old. LUNG NODULE Individualized dose optimization techniques were used for this CT. TECHNIQUE: Transaxial imaging was performed withoutIV contrast material. COMPARISON: Sep 02 2020 1:21pm . FINDINGS: There are degenerative changes of the shoulders. There is no pneumothorax. There is no demonstrated pleural abnormality. 4.6 mm pleural-based mass in the right upper lobe. Series 4 image 22. There are scattered blebs and bullae. This can be seen in pulmonary emphysema. There are calcifications of the coronary arteries. Coronary stent. Normal mediastinum. Normal hilar regions. Normal pulmonary arteries. There is atherosclerotic calcification of the aortic arch with tortuosity and elongation of the aortic arch and descending thoracic aorta. There are multi-level degenerative changes of the thoracic spine. There are no acute findings of the upper abdomen. CT/Chest without Contrast IMPRESSION: 4.6 mm pleural-based mass in the right upper lobe. Series 4 image 22. This is slightly larger than the prior study. ACR Lung CT Screening Reporting T Data System (Lung-RADS) score: 2 - Benign Appearance or Behavior. Recommend continued annual screening with low-dose CT (LDCT) in 12 months. Electronically Signed: Daniel Tai MD at 21:41 EST ,
== END | disposition home or self-care (01) ==
LOC: CT 13:51
PROVIDERS: PCP Internal Medicine; Referring Provider Internal Medicine; Visit Provider Internal Medicine
DX: R91.1 Solitary pulmonary nodule (principal); Z12.2 Encounter for screening for malignant neoplasm of respiratory organs; F17.200 Nicotine dependence, unspecified, uncomplicated
CPT/HCPCS: 71250

== ENCOUNTER → 2022-09-05 | Outpatient (CLI) | payer OTHER, SELFPAY ==
[2018-10-10 13:42] VITALS: BMI 32.9
[2022-09-05 16:04] LABS: Hematocrit 38.4 % (37-47); Hemoglobin 12.2 g/dL (12.0-15.0); Mean Corp Hgb Conc 31.8 g/dL (32-36); Mean Corpuscular Hgb 27.7 pg (27.0-32.0); Mean Corpuscular Volume 87.3 fL (81-99); Mean Platelet Vol. 10.6 fl (6.2-12.0); Platelet Count 291 K/mm3 (150-450); RBC Distribution Width SD 45.3 fl (35.1-43.9); White Blood Count 8.1 K/mm3 (4.4-11.0)
[2022-09-05 16:16] LABS: Erythrocyte Sedimentation Rate 30 mm/hr (0-30)
[2022-09-05 17:07] LABS: Anion Gap 8 (5-15); BUN 11 mg/dL (7-18); BUN/Creat Ratio 17.5 RATIO (10-20); Calcium,Total 8.7 mg/dL (8.5-10.1); Chloride 105 mmol/L (98-107); Creatinine, Serum 0.63 mg/dL (0.55-1.02); EST Glomerular Filtration Rate 101 mL/min (>60); Est Glom Filt Rate - Afr Amer 123 mL/min (>60); Glucose 97 mg/dL (74-106); Potassium 3.7 mmol/L (3.5-5.1); Sodium Level 140 mmol/L (136-145)
== END | disposition home or self-care (01) ==
LOC: LAB 14:44
PROVIDERS: PCP Internal Medicine; Visit Provider Internal Medicine Infectious Disease
DX: M25.569 Pain in unspecified knee (principal)
CPT/HCPCS: 36415; 80048; 85027; 85652; 86140

== ENCOUNTER → 2023-01-02 | Outpatient (CLI) | payer OTHER, SELFPAY ==
[2018-10-10 13:42] VITALS: BMI 32.9
[2023-01-02 15:51] LABS: Erythrocyte Sedimentation Rate 9 mm/hr (0-30)
[2023-01-02 16:05] LABS: Hematocrit 39.4 % (37-47); Hemoglobin 12.1 g/dL (12.0-15.0); Mean Corp Hgb Conc 30.7 g/dL (32-36); Mean Corpuscular Hgb 27.2 pg (27.0-32.0); Mean Corpuscular Volume 88.5 fL (81-99); Mean Platelet Vol. 11.3 fl (6.2-12.0); Platelet Count 227 K/mm3 (150-450); RBC Distribution Width CV 14.6 % (11.6-14.6); RBC Distribution Width SD 47.6 fl (35.1-43.9); Red Blood Count 4.45 M/mm3 (4.2-5.4); White Blood Count 6.3 K/mm3 (4.4-11.0)
[2023-01-02 16:11] LABS: Anion Gap 6 (5-15); BUN 11 mg/dL (7-18); BUN/Creat Ratio 15.5 RATIO (10-20); Calcium,Total 9.4 mg/dL (8.5-10.1); Chloride 106 mmol/L (98-107); Creatinine, Serum 0.71 mg/dL (0.55-1.02); EST Glomerular Filtration Rate 88 mL/min (>60); Est Glom Filt Rate - Afr Amer 107 mL/min (>60); Glucose 209 mg/dL (74-106); Potassium 4.4 mmol/L (3.5-5.1); Sodium Level 140 mmol/L (136-145)
== END | disposition home or self-care (01) ==
LOC: LAB 14:21
PROVIDERS: PCP Internal Medicine; Referring Provider Internal Medicine Infectious Disease; Visit Provider Internal Medicine Infectious Disease
DX: T84.54XA Infection and inflammatory reaction due to internal left knee prosthesis, initial encounter (principal); X58.XXXA Exposure to other specified factors, initial encounter
CPT/HCPCS: 36415; 80048; 85027; 85652; 86140

== ENCOUNTER → 2023-04-10 | Outpatient (CLI) | payer OTHER, SELFPAY ==
[2018-10-10 13:42] VITALS: BMI 32.9
[2023-04-10 16:12] LABS: Absolute Lymphocyte Count 1.66 X10^3/uL (0.83-4.51); Absolute Neutrophil Count 5.5 X10^3/uL (2.0-7.7); Basophil# 0.07 X10^3/uL; Basophil% 0.9 % (0-1); Eosinophil# 0.26 X10^3/uL; Eosinophils% 3.3 % (0-5); Hematocrit 38.8 % (37-47); Hemoglobin 12.3 g/dL (12.0-15.0); Lymphocyte # 1.66 X10^3/ul (0.83-4.51); Lymphocyte % 20.9 % (19-41); Mean Corp Hgb Conc 31.7 g/dL (32-36); Mean Corpuscular Hgb 27.4 pg (27.0-32.0); Mean Corpuscular Volume 86.4 fL (81-99); Mean Platelet Vol. 10.8 fl (6.2-12.0); Monocyte# 0.48 X10^3/uL; NRBC Flagged by Analyzer 0 % (0-5); Neutrophil # 5.46 X10^3/uL (2.7-7.7); Neutrophil % 68.5 % (47-70); Platelet Count 247 K/mm3 (150-450); RBC Distribution Width CV 14.3 % (11.6-14.6); RBC Distribution Width SD 45.2 fl (35.1-43.9); Red Blood Count 4.49 M/mm3 (4.2-5.4)
[2023-04-10 16:17] LABS: Erythrocyte Sedimentation Rate 10 mm/hr (0-30)
== END | disposition home or self-care (01) ==
LOC: LAB 15:14
PROVIDERS: PCP Internal Medicine; Referring Provider Specialist; Visit Provider Specialist
DX: T84.53XD Infection and inflammatory reaction due to internal right knee prosthesis, subsequent encounter (principal); X58.XXXD Exposure to other specified factors, subsequent encounter
CPT/HCPCS: 36415; 85025; 85652; 86140

== ENCOUNTER → 2023-04-22 | Outpatient (CLI) | payer OTHER, SELFPAY ==
[2018-10-10 13:42] VITALS: BMI 32.9
[2023-04-22 09:14] LABS: Pathologist Comment May follow
[2023-04-22 11:28] LABS: Synovial Fld Mononuclear WBC # 0.693 10^3/ul; Synovial Fld Polynuclear WBC # 0.463 10^3/uL
[2023-04-22 11:31] LABS: AUTO B FLUID DILUENT BKGD CT WBC <0.1 RBC <0.01 (W<.1,R<.01); Appearance /Synovial Fluid Sl Cl (CLEAR); Color / Synovial Fluid Yellow (Pale Yellow); Source / Synovial Fluid LEFT KNEE; Source- Body Fluid SYNOVIAL
[2023-04-22 11:57] LABS: CRYSTALS, BODY FLUID See PATH REV
[2023-04-22 13:03] LABS: Lymph 39 %; Monocyte /Synovial Fluid 15 %; Neutrophil 40 % (0-25); Other Cell /Synovial Fluid 6 %
[2023-04-22 13:04] LABS: Body Fluid QC Type(s) BF1Q,BF2Q; RBC /Synovial Fluid 67 /mm3 (0)
[2023-04-23 08:03] LABS: Pathologist Review Reviewed
== END | disposition home or self-care (01) ==
LOC: LABSPEC 09:08
PROVIDERS: PCP Internal Medicine; Referring Provider Specialist; Visit Provider Specialist
DX: T84.53XD Infection and inflammatory reaction due to internal right knee prosthesis, subsequent encounter (principal); Z96.653 Presence of artificial knee joint, bilateral
CPT/HCPCS: 87015; 87070; 87075; 87077; 87101; 87116; 87205; 87206; 89050; 89051; 89060

== ENCOUNTER → 2024-07-30 | Outpatient (CLI) | payer OTHER, SELFPAY ==
[2018-10-10 13:42] VITALS: BMI 32.9
--- NOTE | 2024-07-30 09:57 | PCM.CR.HP2 ---
CR - History & Physical General Arrival date:: 07/30/24 Arrival time:: 09:57 Date of Referral:: 07/21/24 Date of CR Evaluation:: 07/30/24 Referring Physician: Dr. Bauman Primary Diagnosis: CABG History of Present Cardiac Event Onset Date Coronary Artery Bypass Graft:: Yes (onset 06/17/24) Vessel: FITZPATRICK-LAD Medications Ambulatory Orders ?Medication ?Instructions ?Recorded albuterol sulfate 90 mcg/actuation 1 puff inhalation Q6H PRN PRN 12/16/14 aerosol inhaler Asthma metformin 1,000 mg tablet 1,000 mg PO BID Diabetes 12/16/14 bupropion HCl 150 mg 24 hr tablet, 150 mg PO QAM mental health 11/30/19 extended release nitroglycerin 0.4 mg sublingual 0.4 mg sublingual Q5M PRN Chest 11/30/19 tablet Pain #25 tabs aspirin 81 mg tablet,delayed 81 mg PO DAILY Heart health 03/02/22 release pantoprazole 40 mg tablet,delayed 40 mg PO DAILY GERD 03/02/22 release pravastatin 80 mg tablet 80 mg PO QHS Cholestrol 03/02/22 acetaminophen 500 mg tablet 1,000 mg (2 x 500 mg) PO Q8 PRN 03/06/22 pain #0 tabs glimepiride 1 mg tablet 1 mg PO BREAKFAST #30 tabs 03/06/22 metoprolol tartrate 25 mg tablet See Rx Instructions .Route 02/13/23 .COMPLEX #180 tabs tizanidine 4 mg tablet 4 mg PO QHS PRN 07/24/23 zolpidem 10 mg tablet 10 mg PO QHS 07/24/23 clopidogrel 75 mg tablet 75 mg PO DAILY Blood thinner #90 09/23/23 tabs Allergies Allergies carbamazepine Allergy (Verified 07/24/23 08:34) unknown colestipol Allergy (Verified 07/24/23 08:34) unknown diltiazem Allergy (Verified 07/24/23 08:34) Unknown levofloxacin (From Levaquin) Adverse Reaction (Verified 07/24/23 08:34) Upset Stomach meperidine HCl (From Demerol) Adverse Reaction (Verified 07/24/23 08:34) Vomiting rosuvastatin calcium (From Crestor) Adverse Reaction (Verified 07/24/23 08:34) Pain in joints Tetracyclines Adverse Reaction (Verified 07/24/23 08:34) Upset Stomach tramadol Adverse Reaction (Verified 07/24/23 08:34) Diarrhea Sleep Disorder Evaluation Hx of Sleep Apnea: No Do you snore loudly (louder than talking or can be heard through closed doors)?: No Do you often feel tired/ fatigued/ sleepy during daytime?: No Has anyone observed you stop breathing during sleep?: No History of Hypertension (for STOP score): Yes STOP Results: Negative Advanced Directives Advanced Directives Power of Golf Course Architect: Yes Living Will: Yes Advance Directives Information Provided: Yes Advance Directives on File: No DNR Order?:: No Past Medical History Covid-19 Screening Physicial Symptoms Other Clinical Concerns Exposure Risk Pertinent Comorbidities Has a serious heart condition:: Yes Past Medical Illness Past Medical History Lung nodule, solitary R91.1 Aftercare following explantation of joint prosthesis, staged procedure Z47.89 Bruit of left carotid artery R09.89 Presence of stent in coronary artery (~03/04/19) Z95.5 PCI/BEAU of the prox OM3 and LAD 10/19/16; PCI/BEAU to prox LAD 09/10/17; PCI/BEAU to the mid LAD 10/10/18; PTCA/BEAU of prox OM 2 and PTCA/BEAU of prox OM4 03/04/19 Asthma J45.909 Osteoarthritis M19.90 GERD (gastroesophageal reflux disease) K21.9 Depression F32.9 Pneumonia J18.9 Sleep apnea G47.30 untreated Essential hypertension I10 Hypertension I10 Cardiac murmur R01.1 New since October of 2021 Cigarette nicotine dependence F17.210 Hyperlipemia, mixed E78.2 Atherosclerosis of [place] coronary artery of [place] heart without angina pectoris I25.10 PCI/BEAU of the prox OM3 and LAD 10/19/16; PCI/BEAU to prox LAD 09/10/17; PCI/BEAU to the mid LAD 10/10/18; Successful PTCA/BEAU to proximal OM#2,Successful PTCA/BEAU proximal OM#4 03/04/2019 Diabetes E11.9 not adequately controlled. CAD (coronary artery disease), [place] coronary artery I25.10 Past Surgical History Past Surgical History (Updated 07/27/24 @ 11:56 by Lisa Klein RN) Hx of CABG (06/17/24) Z95.1 CABG x1; FITZPATRICK-LAD (Dr. 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 Tom Vernon Presence of coronary angioplasty implant and graft (~03/04/19) Z95.5 PCI/BEAU of the prox OM3 and LAD 10/19/16; PCI/BEAU to prox LAD 09/10/17; PCI/BEAU to the mid LAD 10/10/18; PTCA/BEAU of prox OM 2 and PTCA/BEAU of prox OM4 03/04/19 History of left heart catheterization (LHC) (~03/21/21) Z98.890 LEFT MAIN: Angiographically normal; LEFT ANTERIOR DESCENDING ARTERY: PROX LAD: Previously placed stent is patent, MID LAD: Previously placed stent is patent, Mild luminal irregularities; DISTAL LAD: Mild luminal irregularities; DIAGONAL 1: Proximal - Mild luminal irregularities (small caliber vessel); CIRCUMFLEX ARTERY: PROX CIRC: Mild luminal irregularities, MID CIRC: diffuse: eccentric: 10 - 25 % Stenosis; OM 1: Proximal - Mild luminal irregularities; OM 2: Proximal - Previously placed stent is patent; OM 3: Proximal - Previously placed stent is patent; RIGHT CORONARY ARTERY: small nondominant vessel: diffuse severe stenosis; AORTIC ROOT: Angiographically normal per cardiac cath 03/21/21 Dr. Davila LEFT MAIN: Angiographically normal; LEFT ANTERIOR DESCENDING ARTERY:PROX LAD: Previously placed stent is patent, MID LAD: Previously placed stent is patent, DIAGONAL 1: Proximal - Mild luminal irregularities (small caliber vessel); CIRCUMFLEX ARTERY: PROX CIRC: Mild luminal irregularities, MID CIRC: Mild luminal irregularities OM 2: Mid - Previously placed stent is patent, OM 3: Proximal - Previously placed stent is patent; RIGHT CORONARY ARTERY: small nondominant vessel: diffuse severe stenosis; AORTIC ROOT: Angiographically normal per cardiac cath 12/23/19 Hx of sinus surgery Z98.890 History of ear surgery Z98.890 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 History of total bilateral knee replacement Z96.653 History of hysterectomy Z90.710 History of thyroid nodule Z86.39 removed History of cholecystectomy Z90.49 History of tonsillectomy Z90.89 Surgical History: noncontributory, hysterectomy, total knee arthroplasty, tonsillectomy and - (thyroidectomy, 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, knee replacements bilateral, ) Family History Summary Family History Mother CVA (cerebral vascular accident) Diabetes CAD (coronary artery disease) Brother Myocardial infarction Cancer History of PTCA Diabetes Social History Smoking History Smoking Status: Former smoker Years Smokin Packs Smoked per Day: 2 (stopped 2023) Alcohol Use Alcohol Usage: No Substance Abuse Hx Substance Use: No Occupation Occupation (List type of work in comments):: Retired Hobbies, Recreation, Social Activities Hobbies: Reading and Other (fishing) Recreational Activities: I am able to engage in all my recreational activities Social Environment Status Marital Status: Current Living Arrangements Living Environment:: Spouse Children How many children do you have?: 2 Do any of your children live nearby?: Yes Safety Do you feel safe in your surroundings?: Yes Assistance Do you need any assistance at home?: no Review of Systems Review of Systems Hints Review of Present Symptoms: Reports Shortness of Breath with Exertion, Operative Discomfort, Fatigue, Heart Arrhythmia/Irregularities, Appetite - Normal, Appetite - Special Diet and Sleep - Normal; Denies Shortness of Breath at Rest, PVD, Angina, Wound Healing, Dizziness/Lightheadedness or Sexual Changes Pain Pain Location: lower extremity Pain Level: 4/10 Risk Factor Assessment Chief Complaint Chief Complaint: CABG Vital Signs Pulse Ox: 98 Blood Pressure: 116/62 Pulse Pulse Rate: 98 Pulse Rhythm: Regular Hypertension Blood Pressure Sitting - Right Arm: 116/62 Diabetes Diabetic History: Type II Nutrition Referral for Diabetes: No Obesity Height: 5 ft 4 in Weight:: 184 lb Weight in Pounds: 184.0 lbs Body Mass Index (BMI): 31.6 Nutritional Referral for Obesity: No Physical Inactivity Physical Inactivity: Reg Exercise 30 min/day Risk Stratification Risk Guidelines: Moderate Risk: Risk Factor for Smoking and Risk Factor for Sedentary Lifestyle and Highest Risk: Risk Factor for Dyslipidemia, Risk Factor for Diabetes, Risk Factor for Obesity, Risk Factor for Hypertension and Risk Factor for Depression For Smoking Smoking Risk Guidelines For Dyslipidemia Dyslipidemia Risk Guidelines For Diabetes Mellitus Diabetes Risk Guidelines For Obesity/Overweight Obesity/Overweight Risk Guidelines For Hypertension Hypertension Risk Guidelines For Sedentary Lifestyle Sedentary Lifestyle Risk Guidelines For Depression Depression Risk Guidelines Family History Family History Mother CVA (cerebral vascular accident) Diabetes CAD (coronary artery disease) Brother Myocardial infarction Cancer History of PTCA Diabetes Motivation Motivation to Participate On a scale of 1 to 10, how prepared are you to commit to attending program?: 6 What do you see as barriers to successfully being able to complete the program?: Pt has lung CA and is undergoing radiation treatment. What do you see as the benefits of succesfully completing the program? In other words, what do you hope to get out of participating in the program?: energy Are there issues you are dealing with that will interfere with completing the program?: no Do you have a spouse or signficant other, family or friends who will help support you to complete the program?: yes
--- NOTE | 2024-07-30 10:02 | CR.ITP_ITS ---
Diagnosis General Information Admitting Diagnosis: CABG Personal Learning Style:: Audio/Visual Barriers to Learning: No Barriers Stage of change r/t lifestyle modifications:: Contemplation Gave educational material for:: Treating Heart Disease, How The Heart Works, What it means to have Heart Disease, How Coronary Artery Disease is Diagnosed, Heart Procedures, What Heart Medications Do, Risk Factors & Modifications, Living an Active Life, Nutrition, Emotions & Heart Disease, Stress Management & Relaxation and Sleep Disorders & Heart Disease Education/Goals Cardiac Rehabilitation Goals Personal Goals: Initial Assessment: Improve energy level and Improve muscle strength and endurance Scale for measuring improvement of personal goals Diagnosis & Disease Process Outcomes/Goals: Pt IDs own risk factors & lifestyle modifications by Session 10, Verbalizes symptoms of angina & response by session 3., Pt independently manages and Other Additional Outcomes/Goals: Plan/Interventions: Assist Pt to ID & engage in lifestyle modification to reduce CVD risk, Instruct on individual risk factors, Review symptoms of angina & emergency actions, Review secondary diagnosis & identify educational needs. and Other see comment 30 day Reassessments:: Not Met 30 day Reassessments:: Not Met 30 day Reassessments:: Not Met 30 day Reassessments:: Not Met Final Reassessments:: Not Met Safety Referral to Physical Therapy: No Referral to [facility] Case Management: No Fall Risk Assessed:: Yes Assistive Devices:: None Exercise - Initial Assessment Visit Date of Eval: 07/30/24 (initial eval ) Mets: Pre-: >3 METS for 30 minutes by discharge, >5 METS for 30 minutes by discharge, >7 METS for 30 minutes by discharge and Unable to meet goal due to: (see comment below) Physician Prescribed Exercise Modalities: Treadmill, Rower, Luciano Airdyne AD-7, SciFit Stepper, SciFit Pro- II Ergometer and SciFit Lateral [place] Frequency: 3x/week for 12 weeks [36 sessions] Intensity: 60-80% of age predicted maximum heart rate reserve Duration: 30 - 45 minutes Current METSs:: 3 Target Heart Rate:: 93-116 Resting Blood Pressure: 116/62 EKG Type: A-fib with RVR Outcomes & Goals Goals:: Verbalizes understanding of THR, RPE & goal METS by session 6, Documents in home exercise log/reports 30 min aerobic 5 day/wk by DC, Demonstrates accurate pulse taking by DC and Other additional outcome/goals: see below Intervention & Plan Exercise Program Goals: Instruct on personal THR & RPE, Instruct on MET level & personal MET goal, Show patient to take own pulse /validate performance until accurate, Instruct on home exercise and Other additional plan/int Physical Activity Home Exercise Physical Activity - Home Exercise: Safe Exercise, Warm-up, Self-monitoring, Cool-Down, Home Exercise > 30 min Daily and Sitting Time <3 hours/daily Outcomes & Goals Outcomes/Goals: Demonstrates correct Warm-up/exercise Cool-Down (S3) if = 2.5 METs, Verbalizes symptoms of exercise intolerance by Session 3 (S3), Demonstrate safe equipment use (S3) & follows exercise prescrition (6) and Other: See below Intervention & Plan Plan/Intervention: Instruct warm-up & cool-down if exercising at > 2 METs, Instruct on symptoms of exercise intolerance & actions to take, Instruct & monitor on saf, Assess intial functional capacity & safety risk and Other See below Nutrition - Initial Assessment Program Goals Nutrition Program Goals Patient has diagnosis of Hyperlipidemia (ICD E78)?: Yes Visit Date of Eval: 07/30/24 (initial eval ) Cholesterol/Lipids (Other Core Measures) Determine presence & major risk factors that modify LDL goal: Cigarette smoking, Hypertension or hypertensive medication, Low HDL cholesterol <40 mg/dL*, Family history of premature CHD in Male < 55 years: female <65 yearsFa and Age men > 45 years; women >/= 55 years Outcomes/Goals: Pt IDs own risk factors & lifestyle modifications by Session 10, Verbalizes symptoms of angina & response by session 3., Pt independently manages and Other Additional Outcomes/Goals: Intervention/Plan: Advocate for lipid panel cholesterol medication if applicable, Instruct on personal lipid levels & lipid goals/NCEP guidelines, Instruct on cholesterol and Other additional plan/int Referral to dietitian:: No Diabetes (Other Core Measures) Diabetes Type: Not Applicable Insulin dependent injection/pump?: Yes Non-Insulin Dependent?: Yes Do you monitor your blood sugar at home?: Yes Referral to Diabetic Clinic:: No Weight Mgt (Other Care) Height: 5 ft 4 in Weight:: 184 lb BMI: 31.6 Diagnosis Overweight/Obesity BMI> 30% ICD-10 E66: Yes Diagnosis High BMI/Morbid Obesity BMI> 35% ICD-10 Z68: No Outcomes/Goals: Pt sets, maintains & shows weight loss goal & trend during rehab and Other additional outcomes/goals Intervention/Plan: Instruct on ideal BMI & set weight loss goal w/patient, Assist pt to ID & incorporate diet changes for weight loss by S9, Refer to Structured Weight Loss program as appropriate, Encourage goal of using 250- 300dcal per session for weight loss and Other additional plan/interventions Healthy Eating Habits Will attend diet classes:: Yes Outcomes/Goals:: Consume diet rich in vegs,fruits,whole grain/high fiber,fish,lean meat, Limit sat/trans fats,cholesterol & added salts & sugars and Other additional outcome/goals: Intervention/Plan:: Assess current eating habits and Other Additional plan/interventions Education Gave educational materials for:: Signs & symptoms of hypoglycemia, Signs & symptoms of hyperglycemia, Relate diabetes to coronary artery disease and Healthy eating Core - Initial Assessment Visit Date of Eval: 07/30/24 (initial eval ) Medication Compliance Preventative Medication(s):: Statin/lipid, Beta rayna and Eliquis H/O mental health issues: depression, anxiety, or addiction?: Yes Doesn?t believe in the benefits of treatment?: No Believes medications are unnecessary or harmful?: No Has a concern about medication side effects?: No Expresses concern over the cost of medications?: No Outcomes/Goals: Verbalizes medications,desired effect & common side effects @ DC, Pt self-reports following medication regimen, Keeps card in wallet w/medications listed by DC and Other additional outcome/goals: Interventions/plans: Instruct on medication effects & side effects, Review medication list w/patient every two weeks, Instruct importance of taking meds as ordered & assist problem solving and Other additional Tobacco Use Tobacco Use: Cigarettes How long ago did you quit using tobacco products?: Less than 6 months ago (Pt stopped this May. Pt also has lung cancer and is undergoing radiation treatments) Years Smokin Hypertension Hypertension Diagnosis:: Hypertension ICD-10 I10 Resting Blood Pressure:: 116/62 [place] [employer] Hypertension Guidelines Outcomes/Goals: Able to verbalize/achieve optimal blood pressure <130/80, Incorporates diet changes & exercise for blood pressure control by DC and Other additional outcomes/goals Interventions/plan: Instruct on optimal blood pressure, hypertension & medications, Instruct on effects of sodium, alcohol, stress, exercise &hypertension and Other additional plan/interventions Tobacco Cessation Referral Smoking Cessation Referral:: No Individual Education/Counseling:: No Education Schedule Given:: Yes Psychosocial - Initial Assess VIsit Date of Eval: 07/30/24 (initial eval ) History of previous Mental disease:: Yes History of Emotional Disorders: Depression (pt is on meds and states she is doing fine.) Target Goals Target Goals Patient Health Questionnaire PHQ-9 Screening Initial Assessment: 1. Little interest or pleasure in doing things: Several days 2. Feeling down, depressed, or hopeless: Several days 3. Trouble falling or staying asleep, or sleeping too much: Several days 4. Feeling tired or having little energy: More than half the days 5. Poor appetite or overeating: Several days 6. Feeling bad about yourself -- or that you are a failure or have let yourself or your family down: Not at all 7. Trouble concentrating on things, such as reading the newspaper or watching television: Not at all 8. Moving or speaking so slowly that other people could have noticed. Or the opposite - being so fidgety or restless that you have been moving around a lot more than usual: Not at all 9. Thoughts that you would be better off , or of hurting yourself in some way: Not at all How difficult have these problems made it for you to do your work, take care of things at home, or get along with other people?: Not difficult at all Total Score: 6 TREVON-Q SV Test Statements CAD is a disease of the arteries in the heart: False Examples of risk factors for heart disease: True Angina is chest pain or discomfort: True The benefits of resistance training include: True Eating more meat and dairy products: False Anti-platelet medications such as aspirin are important: True The only effective way to manage stress: False An exercise warm-up slowly increases heart rate: True Prepared, processed foods usually have high sodium: True Depression is common after a heart attack: True The statin medications lower cholesterol: True To control blood pressure, lower the amount of sodium: True If someone gets chest discomfort during walking: False Transfats are partially hydrogenated vegetable oils: True Sleep apnea that is not treated increases the risk: True To control cholesterol, one should become a vegetarian: False Someone knows if he/she is exercising at the right level: True Diabetes cannot be prevented with exercise & health eating: False Stress is a large risk for heart attack: True A diet that can help lower blood pressure is rich in: True Total Score Total Correct Responses: 19 Self-Efficacy 6-Item Scale Initial Assessment: We would like to know how confident you are in doing certain activities. Please select your confidence level for: Fatigue Select Number: 4 Physical Discomfort or Pain Select Number: 4 Emotional Distress Select Number: 4 Other Symptoms or Health Problems Select Number: 4 Different Tasks and Activities Select Number: 5 Medication Select Number: 5 Total Score:: 4 Nutrition Survey Nutrition Survey Instructions Scoring Instructions Nutrition Survey Initial: Have you lost >10 lbs over the past 2 months without trying?: No Are you following a special diet at home for diabetes, low fat, or low salt?: Yes Are you interested in meeting with a dietitian for help understanding your diet?: No Do you eat less than 3 meals a day?: Yes Do you eat fatty meats (metz, sausage, ribs, etc), fried foods, desserts, large amounts of salad dressings, margarine, butter, or cheese most days?: No Do you have food allergies? [Enter types in comment field]: Yes Do you eat in restaurants more than 3 times a week?: No Do you season food with salt, seasoning salt, or garlic salt?: No Do you used canned, boxed, frozen meals, or soups, seasoning packets?: Yes Total Score:: 4 Exercise - 30-day Assessment Physician Prescribed Exercise Modalities: Treadmill, Rower, Schwinn Airdyne AD-7, SciFit Stepper, SciFit Pro- II Ergometer and SciFit Lateral [place] Exercise - 60-day Assessment Physician Prescribed Exercise Modalities: Treadmill, Rower, Schwinn Airdyne AD-7, SciFit Stepper, SciFit Pro- II Ergometer and SciFit Lateral Aviation Project Manager Exercise - 90-day Assessment Physician Prescribed Exercise Modalities: Treadmill, Rower, Schwinn Airdyne AD-7, SciFit Stepper, SciFit Pro- II Ergometer and SciFit Lateral Aviation Project Manager Exercise - Final/Discharge Physician Prescribed Exercise Modalities: Treadmill, Rower, Schwinn Airdyne AD-7, SciFit Stepper, SciFit Pro- II Ergometer and SciFit Lateral [employer] Project Manager Frequency: 3x/week for 12 weeks [36 sessions] Intensity: 60-80% of age predicted maximum heart rate reserve Current METSs:: 3 Target Heart Rate:: 93-116 Nutrition - 30-Day Assessment Weight Mgt (Other Care) Height: 5 ft 4 in Weight:: 184 lb BMI: 31.6 Nutrition - 60-Day Assessment Weight Mgt (Other Care) Height: 5 ft 4 in Weight:: 184 lb BMI: 31.6 Core - 30-Day Assessment Tobacco Use Years Smokin Core - Final Assessment Hypertension Resting Blood Pressure:: 116/62 [place] [employer] Hypertension Guidelines Core - 60-Day Assessment Hypertension Resting Blood Pressure:: 116/62 [place] [employer] Hypertension Guidelines Psychosocial - 30-Day Assess Target Goals Target Goals Psychosocial - 60-Day Assess Target Goals Target Goals Psychosocial - 90-Day Assess Target Goals Target Goals Psychosocial - Final Assessmen Target Goals Target Goals Nutrition - 90-Day Assessment Weight Mgt (Other Care) Height: 5 ft 4 in Weight:: 184 lb BMI: 31.6 Nutrition - Final Assessment Program Goals Patient has diagnosis of Hyperlipidemia (ICD E78)?: Yes Weight Mgt (Other Care) Height: 5 ft 4 in Weight:: 184 lb BMI: 31.6
[2024-07-30 10:17] VITALS: BP 116/62; PULSE 98; O2SAT 98
[2024-07-30 10:32] VITALS: BP 116/62
[2024-07-30 10:37] VITALS: BP 116/62; BMI 31.6
[2024-07-30 10:38] VITALS: BMI 31.6
== END | disposition home or self-care (01) ==
LOC: CR 09:52
PROVIDERS: PCP Internal Medicine; Referring Provider Thoracic Surgery (Cardiothoracic Vascular Surgery); Visit Provider Thoracic Surgery (Cardiothoracic Vascular Surgery)
DX: I25.10 Atherosclerotic heart disease of native coronary artery without angina pectoris (principal); Z95.1 Presence of aortocoronary bypass graft

== ENCOUNTER 2024-08-12 08:00 | Outpatient (RCR) | payer OTHER, SELFPAY ==
[2024-07-30 10:37] VITALS: BMI 31.6
== END 2024-08-13 23:59 ==
LOC: CR 08:00
PROVIDERS: PCP Internal Medicine; Referring Provider Thoracic Surgery (Cardiothoracic Vascular Surgery); Visit Provider Thoracic Surgery (Cardiothoracic Vascular Surgery)
DX: Z95.1 Presence of aortocoronary bypass graft (principal)
CPT/HCPCS: 93798

== ENCOUNTER 2024-08-26 08:00 | Outpatient (RCR) | payer OTHER, SELFPAY ==
[2024-07-30 10:37] VITALS: BMI 31.6
--- NOTE | 2024-08-28 11:28 | PCM.CR.ITP ---
Exercise - Initial Assessment Visit Session #:: 9 Physician Prescribed Exercise Modalities: Treadmill, SciFit Stepper and SciFit Pro-II Ergometer Nutrition - Initial Assessment Weight Mgt (Other Care) Height: 5 ft 4 in Weight:: 190 lb BMI: 32.5 Core - Initial Assessment Tobacco Use Years Smokin Psychosocial - Initial Assess Target Goals Target Goals Referral to Behavioral Health PS - Interventions: Yes: Attend Stress Management Classes Patient Health Questionnaire PHQ-9 Screening 30-Day Re-eval Assessment: 1. Little interest or pleasure in doing things: Several days 2. Feeling down, depressed, or hopeless: Several days 3. Trouble falling or staying asleep, or sleeping too much: Several days 4. Feeling tired or having little energy: More than half the days 5. Poor appetite or overeating: Several days 6. Feeling bad about yourself -- or that you are a failure or have let yourself or your family down: Not at all 7. Trouble concentrating on things, such as reading the newspaper or watching television: Not at all 8. Moving or speaking so slowly that other people could have noticed. Or the opposite - being so fidgety or restless that you have been moving around a lot more than usual: Not at all 9. Thoughts that you would be better off , or of hurting yourself in some way: Not at all How difficult have these problems made it for you to do your work, take care of things at home, or get along with other people?: Not difficult at all Total Score: 6 Self-Efficacy 6-Item Scale 30-Day Re-eval Assessment: We would like to know how confident you are in doing certain activities. Please select your confidence level for: Fatigue Select Number: 4 Physical Discomfort or Pain Select Number: 4 Emotional Distress Select Number: 4 Other Symptoms or Health Problems Select Number: 4 Different Tasks and Activities Select Number: 5 Medication Select Number: 5 Total Score:: 4 Nutrition Survey Nutrition Survey Instructions Scoring Instructions Exercise - 30-day Assessment Visit Date of Eval: 08/28/24 Session #:: 9 Physician Prescribed Exercise Modalities: Treadmill, SciFit Stepper and SciFit Pro-II Ergometer Frequency: 3x/week for 12 weeks [36 sessions] Intensity: 60-80% of age predicted maximum heart rate reserve Duration: 30 - 45 minutes Current METSs:: 3.8 Target Heart Rate:: 93-116 Current RPE:: 12-13 Maximum Excercise HR:: 123 Resting Blood Pressure: 124/70 Maximum Exercise Blood Pressure: 138/68 EKG Type: NSR to ST Outcomes & Goals Goals:: Verbalizes understanding of THR, RPE & goal METS by session 6, Documents in home exercise log/reports 30 min aerobic 5 day/wk by DC, Demonstrates accurate pulse taking by DC and Other additional outcome/goals: see below Intervention & Plan Exercise Program Goals: Instruct on personal THR & RPE, Instruct on MET level & personal MET goal, Show patient to take own pulse /validate performance until accurate, Instruct on home exercise and Other additional plan/int 30-day Reassessments 30 day Reassessments:: Progressing Reassessment Notes & Comments:: RPE explained to pt. Pt is able top return demonstration Physical Activity Home Exercise Physical Activity - Home Exercise: Safe Exercise, Warm-up, Self-monitoring, Cool-Down, Home Exercise > 30 min Daily and Sitting Time <3 hours/daily Outcomes & Goals Outcomes/Goals: Demonstrates correct Warm-up/exercise Cool-Down (S3) if = 2.5 METs, Verbalizes symptoms of exercise intolerance by Session 3 (S3), Demonstrate safe equipment use (S3) & follows exercise prescrition (6) and Other: See below Intervention & Plan Plan/Intervention: Instruct warm-up & cool-down if exercising at > 2 METs, Instruct on symptoms of exercise intolerance & actions to take, Instruct & monitor on saf, Assess intial functional capacity & safety risk and Other See below 30-day Reassessments 30 day Reassessments:: Progressing Reassessment Notes & Comments:: Slow warm up demonstrated to pt. Pt is able to return demonstration. Exercise - 60-day Assessment Physician Prescribed Exercise Modalities: Treadmill, SciFit Stepper and SciFit Pro-II Ergometer Exercise - 90-day Assessment Physician Prescribed Exercise Modalities: Treadmill, SciFit Stepper and SciFit Pro-II Ergometer Exercise - Final/Discharge Physician Prescribed Exercise Modalities: Treadmill, SciFit Stepper and SciFit Pro-II Ergometer Nutrition - 30-Day Assessment Program Goals Nutrition Program Goals Patient has diagnosis of Hyperlipidemia (ICD E78)?: Yes Visit Date of Eval: 08/28/24 Session #:: 9 Cholesterol/Lipids (Other Core Measures) Determine presence & major risk factors that modify LDL goal: Cigarette smoking, Hypertension or hypertensive medication, Low HDL cholesterol <40 mg/dL*, Family history of premature CHD in Male < 55 years: female <65 yearsFa and Age men > 45 years; women >/= 55 years Outcomes/Goals: Pt IDs own risk factors & lifestyle modifications by Session 10, Verbalizes symptoms of angina & response by session 3., Pt independently manages and Other Additional Outcomes/Goals: Intervention/Plan: Advocate for lipid panel cholesterol medication if applicable, Instruct on personal lipid levels & lipid goals/NCEP guidelines, Instruct on cholesterol and Other additional plan/int 30-day Reassessments:: Progressing Reassessment Notes & Comments:: risk factors reviewed with pt. Pt understands how to minimize risk factors. Diabetes (Other Core Measures) Diabetes Type: Diagnosis Type II ICD-10 E11 Insulin dependent injection/pump?: Yes Non-Insulin Dependent?: Yes Do you monitor your blood sugar at home?: Yes Referral to Diabetic Clinic:: No 30-day Reassessments:: Met Weight Mgt (Other Care) Height: 5 ft 4 in Weight:: 190 lb BMI: 32.5 Diagnosis Overweight/Obesity BMI> 30% ICD-10 E66: Yes Diagnosis High BMI/Morbid Obesity BMI> 35% ICD-10 Z68: No Outcomes/Goals: Pt sets, maintains & shows weight loss goal & trend during rehab and Other additional outcomes/goals Intervention/Plan: Instruct on ideal BMI & set weight loss goal w/patient, Assist pt to ID & incorporate diet changes for weight loss by S9, Refer to Structured Weight Loss program as appropriate, Encourage goal of using 250-300dcal per session for weight loss and Other additional plan/interventions 30 day Reassessments:: Progressing Reassessment Notes & Comments:: Pt has had a steady weight gain. Pt physician has been notified. Bloodwork ordered. Will continue to monitor. Healthy Eating Habits Will attend diet classes:: Yes Outcomes/Goals:: Consume diet rich in vegs,fruits,whole grain/high fiber,fish,lean meat, Limit sat/trans fats,cholesterol & added salts & sugars and Other additional outcome/goals: Intervention/Plan:: Assess current eating habits and Other Additional plan/interventions 30-day Reassessments:: Progressing Reassessment Notes & Comments:: Pt is attending nutrition class this week. Education Gave educational materials for:: Signs & symptoms of hypoglycemia, Signs & symptoms of hyperglycemia, Relate diabetes to coronary artery disease and Healthy eating Nutrition - 60-Day Assessment Weight Mgt (Other Care) Height: 5 ft 4 in Weight:: 190 lb BMI: 32.5 Core - 30-Day Assessment Visit Date of Eval: 08/28/24 Session #:: 9 Medication Compliance Preventative Medication(s):: Statin/lipid, Beta rayna and Eliquis H/O mental health issues: depression, anxiety, or addiction?: Yes Doesn?t believe in the benefits of treatment?: No Believes medications are unnecessary or harmful?: No Has a concern about medication side effects?: No Expresses concern over the cost of medications?: No Outcomes/Goals: Verbalizes medications,desired effect & common side effects @ DC, Pt self-reports following medication regimen, Keeps card in wallet w/medications listed by DC and Other additional outcome/goals: Interventions/plans: Instruct on medication effects & side effects, Review medication list w/patient every two weeks, Instruct importance of taking meds as ordered & assist problem solving and Other additional 30-day Reassessments:: Progressing Reassessment Notes & Comments:: 08/09 pt was taken off of her water pill. Pt has had a steady weight gain. Pt's physician notified. Tobacco Use Tobacco Use: Cigarettes How long ago did you quit using tobacco products?: Less than 6 months ago (pt stopped in May.) Years Smokin 30-day Reassessments:: Met Reassessment Notes & Comments:: Pt has stopped smoking. Pt also has lung cancer. Hypertension Hypertension Diagnosis:: Hypertension ICD-10 I10 Resting Blood Pressure:: 124/70 [place] [employer] Hypertension Guidelines Peak Exercise Blood Pressure:: 138/68 Outcomes/Goals: Able to verbalize/achieve optimal blood pressure <130/80, Incorporates diet changes & exercise for blood pressure control by DC and Other additional outcomes/goals Interventions/plan: Instruct on optimal blood pressure, hypertension & medications, Instruct on effects of sodium, alcohol, stress, exercise &hypertension and Other additional plan/interventions 30 day Reassessments:: Met Reassessment Notes & Comments:: Pt's bp's are slightly elevated. Will encourage a low sodium diet. Tobacco Cessation Referral Smoking Cessation Referral:: No Individual Education/Counseling:: No Education Schedule Given:: Yes Psychosocial - 30-Day Assess VIsit Date of Eval: 08/28/24 Session #:: 9 History of previous Mental disease:: Yes History of Emotional Disorders: Depression Target Goals Target Goals Psychosocial Test Tool Used:: [employer] QOL Cardiac and PHQ-9 Questionnaire phq-9 Severity Referral to Behavioral Health PS - Interventions: Yes: Attend Stress Management Classes Outcomes/Goals: See list Psychosocial Outcomes/Goals:: ID's personal stressors & 2 strategies to manage stress by discharge and Other Additional outcome/goals: Intervention/Plan: See List Interventions/Plan:: Assess stressors,coping strategies & signs of derpression on admission, Instruct/assist pt to develop coping & personal stress Mgt strategies, Refer to Behavioral Health if appropriate, Refer to Physician if appropriate, Instruct patient to recognize signs & symptoms of depression, Instruct patient to recog and Other additional plan/intervention 30-day Reassessments: 30 day Reassessments:: Progressing Reassessment Notes & Comments:: Pt is on medication for her depression and states she is doing fine. Psychosocial - 60-Day Assess Target Goals Target Goals Referral to Behavioral Health PS - Interventions: Yes: Attend Stress Management Classes Outcomes/Goals: See list Psychosocial Outcomes/Goals:: ID's personal stressors & 2 strategies to manage stress by discharge and Other Additional outcome/goals: Psychosocial - 90-Day Assess Target Goals Target Goals Referral to Behavioral Health PS - Interventions: Yes: Attend Stress Management Classes Psychosocial - Final Assessmen Target Goals Target Goals Referral to Behavioral Health PS - Interventions: Yes: Attend Stress Management Classes Nutrition - 90-Day Assessment Weight Mgt (Other Care) Height: 5 ft 4 in Weight:: 190 lb BMI: 32.5 Nutrition - Final Assessment Weight Mgt (Other Care) Height: 5 ft 4 in Weight:: 190 lb BMI: 32.5
[2024-08-28 11:35] VITALS: BP 124/70
[2024-08-28 11:50] VITALS: BP 124/70; BMI 32.5
== END 2024-09-12 23:59 ==
LOC: CR 08:00
PROVIDERS: PCP Internal Medicine; Referring Provider Thoracic Surgery (Cardiothoracic Vascular Surgery); Visit Provider Thoracic Surgery (Cardiothoracic Vascular Surgery)
DX: Z95.1 Presence of aortocoronary bypass graft (principal)
CPT/HCPCS: 93798

== ENCOUNTER → 2024-08-27 | Outpatient (CLI) | payer OTHER, SELFPAY ==
[2024-07-30 10:37] VITALS: BMI 31.6
--- NOTE | 2024-08-27 09:42 | RAD_ITS ---
HISTORY: Shortness of breath, weight gain. TECHNIQUE: XR Chest 2 Views. COMPARISON: 02/27/2022. FINDINGS: CARDIOMEDIASTINAL BORDERS: Cardiac silhouette within normal limits in size. Mediastinal contour unremarkable. Calcification of the aortic knob. Interval midline sternotomy and coronary artery stent. LUNGS: Radiographically clear. PLEURA: No pleural effusion or pneumothorax seen. OSSEOUS STRUCTURES: Degenerative change and mild scoliosis. RAD/Chest PA and Lateral IMPRESSION: No acute cardiopulmonary process identified. Electronically Signed: Stacie Carrasco MD at 9:00 EST ,
[2024-08-27 10:22] LABS: BNP,B-Type NATRIURETIC PEPTIDE 197.3 pg/mL (0-100)
[2024-08-27 10:27] LABS: Anion Gap 5 (5-15); BUN 18 mg/dL (7-18); Calcium,Total 8.9 mg/dL (8.5-10.1); Chloride 107 mmol/L (98-107); Creatinine, Serum 0.75 mg/dL (0.55-1.02); EST Glomerular Filtration Rate 82 mL/min (>60); Est Glom Filt Rate - Afr Amer 100 mL/min (>60); Glucose 113 mg/dL (74-106); Potassium 4.2 mmol/L (3.5-5.1); Sodium Level 138 mmol/L (136-145)
== END | disposition home or self-care (01) ==
LOC: LAB 09:35
PROVIDERS: PCP Internal Medicine; Referring Provider Physician Assistant Medical; Visit Provider Physician Assistant Medical
DX: I42.9 Cardiomyopathy, unspecified (principal); I10 Essential (primary) hypertension; Z95.1 Presence of aortocoronary bypass graft; Z95.5 Presence of coronary angioplasty implant and graft
CPT/HCPCS: 36415; 71046; 80048; 83880

== ENCOUNTER 2024-08-29 17:29 | Emergency (ER) | payer OTHER, SELFPAY ==
[2024-08-28 11:50] VITALS: BMI 32.5
[2024-08-29] VITALS (8 sets, daily range): BP systolic 105–136; BP diastolic 52–71; PULSE 76–103; RESP 14–22; TEMP 35.5–36.8; O2SAT 97–100; BMI 32.3
--- NOTE | 2024-08-29 17:35 | RAD_ITS ---
EXAM: XR CHEST, 2 VIEWS CLINICAL INDICATION: chest pain,sob TECHNIQUE: Frontal and lateral views of the chest. COMPARISON: 08/27/2024 FINDINGS: LUNGS AND PLEURAL SPACES: Hyperinflated lungs with interstitial prominence likely secondary to COPD. No definite focal pneumonia. No pneumothorax. No effusion. HEART: Status post CABG. Coronary artery stent partially visualized. MEDIASTINUM: Central airways and mediastinal contour are unremarkable. BONES/JOINTS: Median sternotomy. Degenerative changes and scoliotic curvature in the spine. No acute fracture. SOFT TISSUES: No significant abnormality. RAD/Chest PA and Lateral IMPRESSION: Hyperinflated lungs with interstitial prominence likely secondary to COPD. No definite focal pneumonia. Electronically Signed: Ramsey Acevedo DO at 18:31 EST ,
--- NOTE | 2024-08-29 17:36 | EKG12_ITS ---
Test Reason : CP Blood Pressure : */* mmHG Vent. Rate : 87 BPM Atrial Rate : 87 BPM P-R Int : 174 ms QRS Dur : 92 ms QT Int : 388 ms P-R-T Axes : 71 57 76 degrees QTcB Int : 466 ms Normal sinus rhythm Cannot rule out Anterior infarct , age undetermined Abnormal ECG Confirmed by JEEVAN FOUNTAIN, HATTIE ([id number]), film and video editor ERIC ALATORRE ([id number]) on 08/31/2024 8:14:01 AM Referred By: Confirmed By: HATTIE CHEW MD
[2024-08-29 18:08] LABS: Absolute Lymphocyte Count 1.63 X10^3/uL (0.83-4.51); Absolute Neutrophil Count 5.6 X10^3/uL (2.0-7.7); Basophil# 0.07 X10^3/uL; Basophil% 0.8 % (0-1); Eosinophil# 0.49 X10^3/uL; Eosinophils% 5.8 % (0-5); Hemoglobin 12.1 g/dL (12.0-15.0); Lymphocyte # 1.63 X10^3/ul (0.83-4.51); Lymphocyte % 19.3 % (19-41); Mean Corpuscular Hgb 26.5 pg (27.0-32.0); Mean Corpuscular Volume 85.3 fL (81-99); Mean Platelet Vol. 10.2 fl (6.2-12.0); Monocyte% 7.1 % (0-10); NRBC Flagged by Analyzer 0 % (0-5); Neutrophil # 5.63 X10^3/uL (2.7-7.7); Neutrophil % 66.6 % (47-70); Platelet Count 274 K/mm3 (150-450); RBC Distribution Width CV 15.1 % (11.6-14.6); RBC Distribution Width SD 47.2 fl (35.1-43.9); Red Blood Count 4.57 M/mm3 (4.2-5.4); White Blood Count 8.5 K/mm3 (4.4-11.0)
--- NOTE | 2024-08-29 18:14 | EDS_ITS ---
HPI History of Present Illness Chief Complaint: Chest Pain Narrative Narrative: Patient is a 64-year-old female past medical history of CAD with recent CABG x 1 vessel, KALI, depression, GERD, diabetes who presents to the emergency department with a chief complaint of shortness of breath and right-sided chest pain. States that it is underneath her right breast. She states that on Saturday she felt that she developed this pain and notes that she was at cardiac rehab and they noted that she had been up 8 pounds in 2 weeks. They state that they did blood work on Saturday as well as a chest x-ray however she states that she did not get the results of these laboratory studies. Patient states that if she bends over or moves her pain seems to be exacerbated. Patient denies any history of blood clots denies any recent travel history. Patient states that she has been compliant with her medications and not missing doses. States that she feels like she is breathing through her water. Patient states that she is able to lie down but notes that she does get short of breath with exertion. PFSH [facility] Medical History Hypertension Lung nodule, solitary Aftercare following explantation of joint prosthesis, staged procedure Bruit of left carotid artery Presence of stent in coronary artery (~03/04/19) Asthma Osteoarthritis GERD (gastroesophageal reflux disease) Depression Pneumonia Sleep apnea Essential hypertension Cardiac murmur Cigarette nicotine dependence Hyperlipemia, mixed Atherosclerosis of [place] coronary artery of [place] heart without angina pectoris Diabetes CAD (coronary artery disease), [place] coronary artery Home Medications ?Medication ?Instructions ?Recorded ?Last Taken ?Type albuterol sulfate 90 mcg/actuation 1 puff inhalation Q6H PRN PRN 12/16/14 08/14/16 History aerosol inhaler Asthma metformin 1,000 mg tablet 1,000 mg PO BID Diabetes 12/16/14 03/20/21 History bupropion HCl 150 mg 24 hr tablet, 150 mg PO QA mental health 11/30/19 12/23/19 History extended release nitroglycerin 0.4 mg sublingual 0.4 mg sublingual Q5M PRN Chest 11/30/19 Unknown Rx tablet Pain #25 tabs pantoprazole 40 mg tablet,delayed 40 mg PO DAILY GERD 03/02/22 Unknown History release pravastatin 80 mg tablet 80 mg PO QHS Cholestrol 03/02/22 Unknown History acetaminophen 500 mg tablet 1,000 mg (2 x 500 mg) PO Q8 PRN 03/06/22 Unknown Rx pain #0 tabs glimepiride 1 mg tablet 1 mg PO BREAKFAST #30 tabs 03/06/22 Unknown Rx tizanidine 4 mg tablet 4 mg PO QHS PRN muscle spasticity 07/24/23 Unknown History zolpidem 10 mg tablet 10 mg PO QHS 07/24/23 Unknown History clopidogrel 75 mg tablet 75 mg PO DAILY Blood thinner #90 09/23/23 Unknown Rx tabs ferrous fumarate 325 mg (106 mg 325 mg PO QDAY Cabg 08/06/24 Unknown History iron) tablet folic acid 1 mg tablet 1 mg PO DAILY Cabg 08/06/24 Unknown History insulin glargine 100 unit/mL (3 20 unit subcut QAM 08/06/24 Unknown History mL) subcutaneous pen metoprolol tartrate 25 mg tablet 12.5 mg PO BID 08/06/24 Unknown History sacubitril 24 mg-valsartan 26 mg 1 tab PO BID #120 tabs 08/06/24 Unknown Rx tablet (Entresto) Allergy/AdvReac Type Severity Reaction Status Date / Time carbamazepine Allergy unknown Verified 08/29/24 17:29 colestipol Allergy unknown Verified 08/29/24 17:29 diltiazem Allergy Unknown Verified 08/29/24 17:29 levofloxacin (From Levaquin) AdvReac Upset Verified 08/29/24 17:29 Stomach meperidine HCl (From Demerol) AdvReac Vomiting Verified 08/29/24 17:29 rosuvastatin calcium (From AdvReac Pain in Verified 08/29/24 17:29 Crestor) joints Tetracyclines AdvReac Upset Verified 08/29/24 17:29 Stomach tramadol AdvReac Diarrhea Verified 08/29/24 17:29 Family History Mother CVA (cerebral vascular accident) Diabetes CAD (coronary artery disease) Brother Myocardial infarction Cancer History of PTCA Diabetes Surgical History Hx of CABG (06/17/24) History of revision of total replacement of knee joint (~02/2022) 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 Presence of coronary angioplasty implant and graft (~03/04/19) History of left heart catheterization (LHC) (~03/21/21) Hx of sinus surgery History of ear surgery History of total bilateral knee replacement History of hysterectomy History of thyroid nodule History of cholecystectomy History of tonsillectomy Social History household members: spouse housing: other Smoking Status: Former smoker alcohol intake: never substance use type: does not use caffeine: Yes Type: coffee Number of servings: 3 what type of physical activity do you participate in: other details: cardiac rehab frequency: 3-4 times per week duration: 15-30 minutes/day seatbelt use: always do you feel safe at home: Yes ROS ROS ED ROS Narrative Constitutional: Denies any fevers, chills, headaches, lightness, dizziness Eyes: Denies change in vision double vision blurry vision Cardiovascular: Complains of chest discomfort on the right side denies palpitations Respiratory: Complains of shortness of breath as noted above denies coughing wheezing Abdomen: Denies abdominal pain nausea vomit diarrhea : Denies any pain phonation, hematuria compel area Neurological: Denies any numbness, weakness, tingling Musculoskeletal: Denies back pain Skin: Denies rashes or lesions EXAM Physical Exam Narrative Exam Narrative: General: Patient lying in bed resting comfortably did not appear to be in acute distress Head: Atraumatic, normocephalic Eyes: PERRL bilateral, EOMI bilateral, no conjunctival injection noted Neck: Soft, supple, trach midline Cardiovascular: Regular rate and rhythm no murmurs gallops rubs noted Respiratory: Clear to auscultation bilaterally no rales rhonchi wheeze noted Abdomen: Soft, nondistended, tender to palpation the right upper quadrant no rebound or guarding on exam, bowel sounds present for Extremities: +5/5 strength noted in the bilateral upper and lower extremities, no pedal edema on exam, radial pulses +2/4 in the bilateral upper extremities Neurological: Patient is following commands knew that she was at [facility] years 2023 Skin: Warm, dry, intact Const Vital Signs: 08/29/24 17:29 08/29/24 17:43 08/29/24 18:43 Temperature 96 F L Temperature Source Temporal Pulse Rate 93 76 Respiratory Rate 18 22 H Blood Pressure 136/71 H 112/61 Blood Pressure Mean 92 78 Pulse Ox 100 Oxygen Delivery Method Room Air Room Air 08/29/24 19:00 08/29/24 20:00 08/29/24 21:00 Temperature Temperature Source Pulse Rate 77 80 100 Respiratory Rate 14 16 15 Blood Pressure 105/52 L 120/57 L 118/52 L Blood Pressure Mean 69 78 74 Pulse Ox Oxygen Delivery Method 08/29/24 22:00 Temperature Temperature Source Pulse Rate 103 H Respiratory Rate 18 Blood Pressure 110/52 L Blood Pressure Mean 71 Pulse Ox 97 Oxygen Delivery Method Room Air MDM MDM MDM Narrative Medical decision making narrative: Patient is a 64-year-old female who presented to the emergency department chief complaint shortness of breath and right upper quadrant pain. Patient will have a workup performed here on the differential diagnose includes but limited to CHF, pneumonia, PE, cholecystitis, pancreatitis, ACS. Once workup is obtained reviewed she will be reevaluated. Patient CBC reviewed and showed no evidence leukocytosis white blood count normal 8.5, hemoglobin stable 12.1, platelet count was noted be normal at 274. Patient's sodium normal 139, potassium normal 4.6, creatinine normal at 0.99. Patient's AST and ALT were 9 and 18 respectively. Patient troponin reviewed and was noted to be normal at 14 with a delta troponin obtained normal at 16. Patient EKG reviewed and independently interpreted by myself which showed sinus rhythm with a rate of 75 bpm. Patient's proBNP mildly elevated 155 has been elevated in the past as well according to previous blood draws. Patient's lipase normal at 39. Patient's chest x-ray reviewed by myself and by radiology which showed hyperinflated lungs with interstitial prominence likely secondary to COPD no evidence for focal pneumonia. Patient remained tachycardic and was still complaining shortness of breath therefore I did add on a CTA of the chest and since she was a complaint of right upper quadrant abdominal pain also added on a ultrasound of her abdomen and pelvis. Patient's CTA of her chest was reviewed and showed a spiculated lesion in the left upper lobe concerning for possible ligand CR cyst scar further evaluation include 3 to 4-month follow-up or PET/CT scan. I discussed this with the patient and she is aware this this is being followed already she said she had a mass there before that had radiation. She was also aware of the hypodense left thyroid lesion that had attempted fine-needle aspiration however she states that physician was unable to reach cyst therefore they are monitoring this as well. Mild COPD noted. Patient's CT abdomen pelvis with IV contrast showed no acute findings. Colonic diverticulosis without findings of acute diverticulitis. Did ambulate the patient here in the emergency department and her oxygen level stayed at 98% and she felt her normal self. She would like to go home at this point time she is feeling better. Patient was advised to follow-up with her ultimate hoops scoreboard operator and her primary care physician. She was advised to return with worsening symptoms or other concerns. She is agreeable this plan all question concerns answered she was discharged home in stable condition. Lab Data Labs: Laboratory Results - last 24 hr 08/29/24 08/29/24 17:42 19:43 WBC 8.5 RBC 4.57 Hgb 12.1 Hct 39.0 MCV 85.3 MCH 26.5 L MCHC 31.0 L RDW Std Deviation 47.2 H RDW Coeff of Jossy 15.1 H Plt Count 274 MPV 10.2 Immature Gran % (Auto) 0.400 Neut % (Auto) 66.6 Lymph % (Auto) 19.3 Meigs % (Auto) 7.1 Eos % (Auto) 5.8 H Baso % (Auto) 0.8 Absolute Neuts (auto) 5.6 Absolute Lymphs (auto) 1.63 Nucleated RBC % 0 Sodium 139 Potassium 4.6 Chloride 107 Carbon Dioxide 23.0 Anion Gap 8 BUN 25 H Creatinine 0.99 Estim Creat Clear Calc 59.16 Est GFR (MDRD) Af Amer 72 Est GFR (MDRD) Non-Af 59 L BUN/Creatinine Ratio 25.2 H Glucose 144 H Calcium 8.9 Magnesium 1.6 Total Bilirubin 0.20 Direct Bilirubin 0.08 AST 9 L ALT 18 Alkaline Phosphatase 70 Troponin I High Sens 14 16 B-Natriuretic Peptide 155.7 H Total Protein 7.3 Albumin 3.7 Globulin 3.6 Lipase 39 Radiography Diagnostic Testing: Clinical Impression(s) from Imaging Studies Chest X-Ray 08/29/24 17:35 IMPRESSION: Hyperinflated lungs with interstitial prominence likely secondary to COPD. No definite focal pneumonia. Electronically Signed: Ramsey Acevedo DO at 18:31 EST , Abdomen/Pelvis CT 08/29/24 19:47 IMPRESSION: No acute findings. Colonic diverticulosis without evidence of acute diverticulitis. CT Chest findings were reported separately. Electronically Signed: Cindy Parada MD at 22:35 EST , Chest CTA 08/29/24 19:47 IMPRESSION: 1. No acute findings. 2. Spiculated lesion left upper lobe concerning for possible malignancy or cyst scar. Options for further evaluation include 3-4 month follow-up or PET/CT. 3. Hypodense left thyroid lesion. Recommend further evaluation with thyroid ultrasound. Recommend further nonemergent evaluation with thyroid ultrasound. 4. Mild COPD. Electronically Signed: Jada Zambrano MD at 22:02 EST Reading Location ID and State: [id number] / Tel , Service support , ADDENDUM: 08/29/24 2233 IMPRESSION: 1. No acute findings. 2. Spiculated lesion left upper lobe concerning for possible malignancy or cyst scar. Options for further evaluation include 3-4 month follow-up or PET/CT. 3. Hypodense left thyroid lesion. Recommend further evaluation with thyroid ultrasound. Recommend further nonemergent evaluation with thyroid ultrasound. 4. Mild COPD. N.B. : Tito Monroe DO, confirmed on 08/29/2024 22:26:45 (ET) that the healthcare facility has received the radiology report. Electronically Signed: Jada Zambrano MD at 22:02 EST Reading Location ID and State: [id number] / Tel , Service support , Discharge Plan Triage Chief Complaint: Chest Pain ED Provider: Tito Monroe Dx/Rx/DC Orders Clinical Impression: Chest pain, Shortness of breath, Abdominal pain Prescriptions: No Action bupropion HCl 150 mg tablet extended release 24 hr 150 mg PO QAM nitroglycerin 0.4 mg tablet, sublingual 0.4 mg SUBLINGUAL Q5M PRN (Reason: Chest Pain) Qty: 25 3RF Rx Instructions: Let one tablet disolve under tongue if pain not resolved in 5 minutes take an second pill, may repeat for a total of 3 pills tizanidine 4 mg tablet 4 mg PO QHS PRN (Reason: muscle spasticity) zolpidem 10 mg tablet 10 mg PO QHS metoprolol tartrate 25 mg tablet 12.5 mg PO BID folic acid 1 mg tablet 1 mg PO DAILY ferrous fumarate 325 mg (106 mg iron) tablet 325 mg PO QDAY insulin glargine 100 unit/mL (3 mL) insulin pen 20 unit subcut QAM Entresto 24-26 mg tablet 1 tab PO BID Qty: 120 3RF metformin 1,000 MG tablet 1,000 mg PO BID Patient Comments: DIABETES albuterol sulfate 1 PUFF inhaler 1 puff INHALATION Q6H PRN PRN (Reason: Asthma) Patient Comments: ASTHMA pravastatin 80 mg tablet 80 mg PO QHS pantoprazole 40 MG tablet,delayed release (DR/EC) 40 mg PO DAILY glimepiride 1 mg Tablet 1 mg PO BREAKFAST Qty: 30 0RF acetaminophen 500 mg tablet 1,000 mg PO Q8 PRN (Reason: pain) Qty: 0 0RF clopidogrel 75 mg tablet 75 mg PO DAILY Qty: 90 3RF Primary Care Provider: Angelique Tejada Referrals: Angelique Tejada MD [Primary Care Provider] - Activity Restrictions/Additional Instructions: Follow-up with your ultimate hoops scoreboard operator as well as your primary care physician outpatient setting. Return with worsening symptoms or other concerns. Print Language: Jordanian Disposition Disposition: Home, Self Care
[2024-08-29 18:18] LABS: AST(SGOT) 9 U/L (15-37); Alanine Aminotransfer ALT/SGPT 18 U/L (13-56); Albumin, Serum 3.7 g/dL (3.2-5.0); Alkaline Phosphatase 70 U/L (45-117); Anion Gap 8 (5-15); BUN 25 mg/dL (7-18); BUN/Creat Ratio 25.2 RATIO (10-20); Bilirubin, Direct 0.08 mg/dL (0.00-0.30); Calcium,Total 8.9 mg/dL (8.5-10.1); Chloride 107 mmol/L (98-107); Creatinine, Serum 0.99 mg/dL (0.55-1.02); EST Glomerular Filtration Rate 59 mL/min (>60); Est Glom Filt Rate - Afr Amer 72 mL/min (>60); Estimated Creatinine Clearance 59.16 ml/min; Globulin 3.6 g/dL (2.2-4.2); Glucose 144 mg/dL (74-106); Lipase 39 U/L (13-75); Magnesium 1.6 mg/dL (1.6-2.6); Potassium 4.6 mmol/L (3.5-5.1); Protein, Total 7.3 g/dL (6.4-8.2); Sodium Level 139 mmol/L (136-145); Troponin-I HS (w/2H Reflex) 14 pg/mL (3.0-54.0)
[2024-08-29 18:51] LABS: BNP,B-Type NATRIURETIC PEPTIDE 155.7 pg/mL (0-100)
--- NOTE | 2024-08-29 19:47 | CT_ITS ---
EXAM: CT Abdomen And Pelvis W/ Contrast Injection HISTORY: RUQ pain TECHNIQUE: Routine protocol CT abdomen pelvis. IV Contrast: IV 100mL Isovue-370 . Oral Contrast: without. Sagittal and coronal images were reconstructed. RADIATION DOSAGE (If Supplied By Facility): CTDIvol = ( 21.20 ) mGy, DLP = ( 1068.76 ) mGycm Individualized dose optimization techniques were used for this CT. COMPARISON: None. LIMITATIONS: None. FINDINGS: LOWER CHEST: Included lung bases are clear. LIVER: Unremarkable. GALLBLADDER/BILE DUCTS: Gallbladder is not identified presumed surgically absent. PANCREAS: Unremarkable. SPLEEN: Unremarkable. ADRENAL GLANDS: Unremarkable. KIDNEYS / URETERS: Unremarkable. Small cyst in the right kidney, no follow-up needed. BOWEL / MESENTERY: Diverticula throughout the colon. No bowel obstruction. APPENDIX: Identified and normal. No evidence of acute appendicitis. PERITONEUM: No free air. No free fluid. VESSELS: Abdominal aorta is normal caliber. RETROPERITONEUM: Unremarkable. REPRODUCTIVE ORGANS: Uterus not identified. BLADDER: Unremarkable. ABDOMINAL WALL: Unremarkable. Intramuscular lipoma right gluteal region. BONES: No acute abnormality. Degenerative changes in the lumbar spine. OTHER: None. CT/Abdomen/Pelvis W IV Cont ONLY IMPRESSION: No acute findings. Colonic diverticulosis without evidence of acute diverticulitis. CT Chest findings were reported separately. Electronically Signed: Cindy Parada MD at 22:35 EST ,
--- NOTE | 2024-08-29 19:47 | CT_ITS ---
ACR Level 3 findings have been noted. An addendum which confirms receipt of the report will follow. EXAM: CT ANGIOGRAPHY CHEST WITHOUT AND WITH INTRAVENOUS CONTRAST CLINICAL INDICATION: right chest pain, sob, hx of open heart TECHNIQUE: Helically acquired angiography images were obtained of the chest without and with intravenous contrast. This CT exam was performed using one or more of the following dose reduction techniques: automated exposure control, adjustment of the mA and/or kV according to patient size, and/or use of iterative reconstruction technique. MIP reconstructed images were created and reviewed. CONTRAST: IV 100mL Isovue-370 COMPARISON: 08/20/2022. FINDINGS: PULMONARY ARTERIES: Unremarkable. Normal in caliber. No evidence of pulmonary embolism. AORTA: Unremarkable. Normal in caliber. No evidence of dissection. GREAT VESSELS OF AORTIC ARCH: Unremarkable. Normal in caliber. No evidence of dissection. LUNGS AND PLEURAL SPACES: 1.3 x 0.8 cm spiculated lesion left upper lobe. This contacts the pleural surface and may represent scarring versus malignancy. Mild pleural thickening and scarring in the right upper lobe. Mild centrilobular emphysema bilateral upper lobes. No pneumothorax. HEART: Unremarkable. Heart size is normal. No pericardial effusion. No significant coronary artery calcifications. MEDIASTINUM: Unremarkable. No mediastinal or hilar adenopathy. Esophagus is unremarkable. No hiatal hernia. THYROID: Areas of low attenuation in the left lobe of the thyroid gland measuring up to 1.7 cm. Small calcifications in the superior aspect of the left lobe of the thyroid gland. BONES/JOINTS: Unremarkable. No suspicious lytic or blastic abnormality. CT/CTA Chest W/WO Contrast IMPRESSION: 1. No acute findings. 2. Spiculated lesion left upper lobe concerning for possible malignancy or cyst scar. Options for further evaluation include 3-4 month follow-up or PET/CT. 3. Hypodense left thyroid lesion. Recommend further evaluation with thyroid ultrasound. Recommend further nonemergent evaluation with thyroid ultrasound. 4. Mild COPD. Electronically Signed: Jada Zambrano MD at 22:02 EST Reading Location ID and State: [id number] / Tel , Service support ,
[2024-08-29 19:52] LABS: Reflex Troponin-HS? (from REC) Y
[2024-08-29 20:13] LABS: Troponin-I HS 16 pg/mL (3.0-54.0)
[2024-08-29] MEDS: Acetaminophen 500 MG Tablet 1000 MG PO (21:36)
[2024-08-29] MEDS: Metoclopramide 10 MG/2 ML Vial IV (22:33)
== END 2024-08-29 23:12 | disposition home or self-care (01) ==
PROVIDERS: Emergency Provider Emergency Medicine; PCP Internal Medicine; Visit Provider Emergency Medicine
DX: R07.9 Chest pain, unspecified (principal); E11.9 Type 2 diabetes mellitus without complications; Z79.4 Long term (current) use of insulin; I10 Essential (primary) hypertension; R06.02 Shortness of breath; R10.11 Right upper quadrant pain; I25.10 Atherosclerotic heart disease of native coronary artery without angina pectoris; E78.2 Mixed hyperlipidemia; Z95.1 Presence of aortocoronary bypass graft; Z95.5 Presence of coronary angioplasty implant and graft; Z79.02 Long term (current) use of antithrombotics/antiplatelets; Z79.84 Long term (current) use of oral hypoglycemic drugs; Z79.899 Other long term (current) drug therapy; Z87.891 Personal history of nicotine dependence
CPT/HCPCS: 71046; 71275; 74177; 80048; 80076; 83690; 83735; 83880; 84484; 85025; 93005; 96374; 99284; Q9967; A4216

== ENCOUNTER → 2024-10-15 | Outpatient (CLI) | payer OTHER, SELFPAY ==
[2024-07-30 10:37] VITALS: BMI 31.6
--- NOTE | 2024-10-15 10:48 | ECHOD_ITS ---
Reason For Study: CAD/ASHD Procedure This was a 2D Doppler, Color Flow transthoracic echocardiogram. Exam performed in department. Left Ventricle Normal LV size. Mild concentric left ventricular hypertrophy. The left ventricular ejection fraction is 40 %. Stage 1 diastolic dysfunction. There are regional wall motion abnormalities as specified. Septal [place] : Akinetic. Mid-anteroseptal : Akinetic. Right Ventricle Normal RV size. Normal systolic function. Atria Normal left atrium. Normal right atrium. Mitral Valve Normal mitral valve. Tricuspid Valve Normal tricuspid valve. Aortic Valve Trisinus/trileaflet aortic valve. Mild focal aortic valve calcification. Great Vessels Normal aortic root. The pulmonary artery is normal size. Normal inferior vena cava. Pericardium/Pleural No pericardial effusion. MMode/2D Measurements & Calculations LVIDd: 5.5 cm IVSd: 1.2 cm Ao root diam: 3.3 cm LVIDs: 4.6 cm LVPWd: 1.2 cm RVDd: 2.2 cm FS: 16.2 % LAV(MOD-bp): 48.1 ml LVAd ap4: 35.2 cm2 SV(MOD-sp4): 47.6 ml LAV(MOD-bp) Indexed: 25.4 ml/m2 LVLd ap4: 7.8 cm SI(MOD-sp4): 25.2 ml/m2 LAV(MOD-sp2): 46.0 ml EDV(MOD-sp4): 128.6 ml LAV(MOD-sp4): 42.6 ml EDV(sp4-el): 134.5 ml LVAs ap4: 26.4 cm2 LVLs ap4: 7.1 cm ESV(MOD-sp4): 81.0 ml ESV(sp4-el): 83.6 ml EF(MOD-sp4): 37.0 % EF(sp4-el): 37.8 % SV(sp4-el): 50.9 ml LA dimension(2D): 4.5 cm LA A4 area: 17.2 cm2 RA A4 area: 8.7 cm2 Doppler Measurements & Calculations MV E max jj: 38.9 cm/sec Ao V2 max: 157.9 cm/sec LV V1 max: 112.7 cm/sec MV A max jj: 77.5 cm/sec Ao max P.0 mmHg LV V1 max P.1 mmHg MV E/A: 0.50 Ao V2 mean: 111.5 cm/sec LV V1 mean P.2 mmHg Ao mean P.7 mmHg LV V1 mean: 84.8 cm/sec Ao V2 VTI: 31.8 cm LV V1 VTI: 22.8 cm AV (velocity ratio): 0.72 PA V2 max: 100.2 cm/sec PA V2 mean: 73.3 cm/sec ECHO/Echo Complete Interpretation Summary Normal LV size. The left ventricular ejection fraction is 40 %. Stage 1 diastolic dysfunction. Mild concentric left ventricular hypertrophy. Compared to previous study, the left ventricular systolic function has worsened .. Ordering Physician: Arnoldo Umana Referring Physician: Arnoldo Umana Performed By: Anabel Frazier RCS
== END | disposition home or self-care (01) ==
LOC: CVS 10:47
PROVIDERS: PCP Internal Medicine; Referring Provider Internal Medicine Cardiovascular Disease; Visit Provider Internal Medicine Cardiovascular Disease
DX: I25.10 Atherosclerotic heart disease of native coronary artery without angina pectoris (principal); Z95.5 Presence of coronary angioplasty implant and graft
CPT/HCPCS: 93306

== ENCOUNTER → 2025-01-18 | Outpatient (CLI) | payer OTHER, SELFPAY ==
[2025-01-18 15:24] LABS: Absolute Lymphocyte Count 1.41 X10^3/uL (0.83-4.51); Absolute Neutrophil Count 5.4 X10^3/uL (2.0-7.7); Basophil# 0.06 X10^3/uL; Basophil% 0.8 % (0-1); Eosinophil# 0.31 X10^3/uL; Lymphocyte # 1.41 X10^3/ul (0.83-4.51); Lymphocyte % 18.4 % (19-41); Mean Corp Hgb Conc 31.6 g/dL (32-36); Mean Corpuscular Volume 85.6 fL (81-99); Mean Platelet Vol. 10.6 fl (6.2-12.0); Monocyte# 0.45 X10^3/uL; Monocyte% 5.9 % (0-10); NRBC Flagged by Analyzer 0 % (0-5); Neutrophil # 5.38 X10^3/uL (2.7-7.7); Neutrophil % 70.2 % (47-70); Platelet Count 243 K/mm3 (150-450); RBC Distribution Width SD 43.2 fl (35.1-43.9); Red Blood Count 4.44 M/mm3 (4.2-5.4); White Blood Count 7.7 K/mm3 (4.4-11.0)
[2025-01-18 18:18] LABS: Anion Gap 14 (5-15); BUN 19 mg/dL (4-19); BUN/Creat Ratio 20.6 RATIO (10-20); Calcium,Total 9.5 mg/dL (7.6-11.0); Carbon Dioxide 23.1 mmol/L (21.0-32.0); Chloride 103 mmol/L (98-108); Creatinine, Serum 0.91 mg/dL (0.70-1.20); EST Glomerular Filtration Rate 69 (>60); Glucose 134 mg/dL (70-99); Potassium 4.4 mmol/L (3.3-5.1); Pro- Brain NATRIURETIC PEPTIDE 194 pg/mL (<=900); Sodium Level 140 mmol/L (133-145); Thyroid Stim Hormone (TSH) 0.651 uIU/mL (0.300-4.200)
== END | disposition home or self-care (01) ==
LOC: LAB 14:05
PROVIDERS: PCP Internal Medicine; Referring Provider Nurse Practitioner Family; Visit Provider Nurse Practitioner Family
DX: Z95.1 Presence of aortocoronary bypass graft (principal); Z95.5 Presence of coronary angioplasty implant and graft; R07.9 Chest pain, unspecified; R06.09 Other forms of dyspnea
CPT/HCPCS: 36415; 80048; 83880; 84439; 84443; 85025

== ENCOUNTER → 2025-02-03 | Outpatient (CLI) | payer OTHER, SELFPAY ==
--- NOTE | 2025-02-03 17:19 | STRESSREP ---
Stress Test Report Pharmacologic myocardial perfusion stress test. 64-year-old lady with a history of coronary artery disease ischemic cardiomyopathy Resting EKG demonstrates sinus rhythm with a rate of 84 bpm. Resting blood pressure is 120/70 mmHg. 0.4 mg of regadenoson was infused per usual protocol followed by rapid intravenous saline flush injection. Continuous EKG monitoring was performed. The maximum heart rate was 111 bpm which was 72% of max impacted heart rate the maximum workload was 1 metabolic equivalent. At rest there were no ST or T wave changes noted to suggest ischemia and at peak infusion nonspecific ST changes were noted which did not meet the criteria for ischemia. No clinical angina is noted. The final blood pressure was 116/62 mmHg. Myocardial perfusion protocol. 14 mCi of technetium 99m sestamibi was injected at rest. 0.4 mg of regadenoson was infused per usual protocol. At peak infusion 43.1 mCi of technetium 99m sestamibi was injected stress images were obtained stress and rest images were reconstructed and compared in the short axis vertical long and horizontal long axis. Gated images were also obtained. Perfusion SPECT analysis: Review of the stress images demonstrate normal uptake of tracer noted in all areas of the myocardium. The ventricle is noted to be dilated suggestive of ischemic cardiomyopathy. The resting images similar demonstrated normal uptake of tracer noted in all areas of the myocardium. No areas of reversibility are noted to suggest ischemia and no previous infarct is noted. Gated SPECT analysis: The gated ejection fraction is 25%. Conclusion: Normal pharmacologic myocardial perfusion stress test. Reduced ejection fraction.
== END | disposition home or self-care (01) ==
LOC: CVS 06:19
PROVIDERS: PCP Internal Medicine; Referring Provider Nurse Practitioner Family; Visit Provider Nurse Practitioner Family
DX: R07.9 Chest pain, unspecified (principal); R06.09 Other forms of dyspnea; Z95.1 Presence of aortocoronary bypass graft; Z95.5 Presence of coronary angioplasty implant and graft
CPT/HCPCS: 78452; 93017; A9500; A4216; J2785

== ENCOUNTER 2025-04-27 12:45 | Outpatient (CLI) | payer OTHER, SELFPAY ==
--- NOTE | 2025-04-27 12:48 | ECHOLC_ITS ---
Reason For Study Reason For Study: CHF Procedure This was a limited 2D transthoracic echocardiogram. Contrast injection was performed. Exam performed in department. Left Ventricle Normal LV size. The left ventricular ejection fraction is 40 %. Septal [place] : Akinetic. Lateral [place] : Hypokinetic. There are regional wall motion abnormalities as specified. The rest of the wall segments are normal. Right Ventricle Normal RV size. Normal systolic function. Atria Normal left atrium. Normal right atrium. Mitral Valve Normal mitral valve. Tricuspid Valve Normal tricuspid valve. Aortic Valve Trisinus/trileaflet aortic valve. Mild focal aortic valve calcification. Pulmonic Valve Normal pulmonic valve. Great Vessels Normal aortic root. The pulmonary artery is normal size. Inferior vena cava collapse with respiration. Pericardium/Pleural No pericardial effusion. Medication Diluted definity 2ml given slow IV push to enhance endocardial definition. MMode/2D Measurements & Calculations LVIDd: 5.8 cm IVSd: 0.96 cm LVIDs: 4.8 cm LVPWd: 0.93 cm LVAd ap4: 33.6 cm2 FS: 18.3 % LVLd ap4: 7.4 cm EDV(MOD-sp4): 126.7 ml EDV(sp4-el): 129.7 ml LVAs ap4: 25.7 cm2 LVLs ap4: 6.8 cm ESV(MOD-sp4): 80.7 ml ESV(sp4-el): 82.3 ml EF(MOD-sp4): 36.3 % EF(sp4-el): 36.5 % LVAd ap2: 33.3 cm2 SV(MOD-sp4): 46.0 ml SV(MOD-sp2): 44.0 ml LVLd ap2: 7.5 cm SI(MOD-sp4): 23.5 ml/m2 SI(MOD-sp2): 22.5 ml/m2 EDV(MOD-sp2): 123.8 ml EDV(sp2-el): 126.1 ml LVAs ap2: 24.7 cm2 LVLs ap2: 6.6 cm ESV(MOD-sp2): 79.8 ml ESV(sp2-el): 78.1 ml EF(MOD-sp2): 35.5 % SV(sp4-el): 47.3 ml Doppler Measurements & Calculations TR max jj: 206.7 cm/sec TR max P.1 mmHg ECHO/Echo Limited w/Contrast Interpretation Summary Normal LV size. The left ventricular ejection fraction is 40 %. There are regional wall motion abnormalities as specified. Contrast injection was performed. Ordering Physician: Lucian Bailey Referring Physician: Angelique Tejada Performed By: Hermila Bailey, KRYSTIAN, RVT
== END 2025-04-27 23:59 | disposition home or self-care (01) ==
LOC: CVS 12:47
PROVIDERS: PCP Internal Medicine; Referring Provider Nurse Practitioner Family; Visit Provider Nurse Practitioner Family
DX: I11.0 Hypertensive heart disease with heart failure (principal); I50.9 Heart failure, unspecified; I42.9 Cardiomyopathy, unspecified; Z95.1 Presence of aortocoronary bypass graft; Z95.5 Presence of coronary angioplasty implant and graft
CPT/HCPCS: 93308; Q9957; A4216; C8924

== ENCOUNTER → 2025-08-19 | Outpatient (CLI) | payer OTHER, SELFPAY ==
--- NOTE | 2025-08-19 09:19 | ECHOL_ITS ---
Reason For Study ECHO/Echo, Limited Study
[2025-08-19 10:43] LABS: Anion Gap 10 (5-15); BUN 9 mg/dL (4-19); BUN/Creat Ratio 10.3 RATIO (10-20); Calcium,Total 8.7 mg/dL (7.6-11.0); Carbon Dioxide 23.6 mmol/L (21.0-32.0); Chloride 105 mmol/L (98-108); Glucose 181 mg/dL (70-99); Potassium 4.2 mmol/L (3.3-5.1)
== END | disposition home or self-care (01) ==
LOC: CVS 09:03
PROVIDERS: PCP Internal Medicine; Referring Provider Nurse Practitioner Family; Visit Provider Nurse Practitioner Family
DX: I42.9 Cardiomyopathy, unspecified (principal); I10 Essential (primary) hypertension; Z95.1 Presence of aortocoronary bypass graft; Z95.5 Presence of coronary angioplasty implant and graft
CPT/HCPCS: 36415; 80048; 93308